=== PATIENT | female | born 1990 | race Caucasian/White ===

== ENCOUNTER 2020-09-23 05:17 | Inpatient (IN) | payer OTHER, SELFPAY ==
[2020-09-23] VITALS (8 sets, daily range): BP systolic 118–136; BP diastolic 77–89; PULSE 68–105; RESP 16–22; TEMP 36.2–37.2; O2SAT 97–100; BMI 27.4
[2020-09-23] MEDS: LORazepam 1 MG TABLET 2 MG PO (05:40)
[2020-09-23] MEDS: ondansetron HCL 4 MG/2 ML VIAL IVPUSH ×3 (05:48→15:06)
[2020-09-23] MEDS: 0.9 % Sodium Chloride 1,000 ML 1000 ML IV (05:48)
[2020-09-23 05:55] LABS: MANUAL DIFF FLAG NO
[2020-09-23 05:57] LABS: Basophils Percent Auto 0.5 % (0-2); Hematocrit 39.2 % (37-47); Imm Gran Abs Auto 0.02 X10*3/uL (0.00-0.03); Imm Gran Pct Auto 0.3 % (0.0-0.4); Lymphocytes Absolute Auto 1.8 X10*3/uL (1.2-4.9); Lymphocytes Percent Auto 22.8 % (20-40); Mean Corpuscular HGB Conc 33.2 g/dl (31.0-35.0); Mean Corpuscular Hemoglobin 26.5 pg (27.0-33.0); Mean Platelet Volume 10.2 fL (9.4-12.3); Monocytes Absolute Auto 0.5 X10*3/uL (0.1-1.2); Monocytes Percent Auto 6.2 % (2-11); Neutrophils Absolute Auto 5.5 X10*3/uL (2.0-8.3); Neutrophils Percent Auto 70.2 % (45-73); Platelet Count 248 X10*3/uL (160-400); Red Cell Distribution Width 15.3 % (11.0-16.0); White Blood Count 7.8 X10*3/uL (4.8-10.8)
--- NOTE | 2020-09-23 06:05 | ECG_ITS ---
Test Reason : ETOH WITHDRAWAL Blood Pressure : / mmHG Vent. Rate : 090 BPM Atrial Rate : 090 BPM P-R Int : 138 ms QRS Dur : 080 ms QT Int : 406 ms P-R-T Axes : 072 -20 029 degrees QTc Int : 496 ms Normal sinus rhythm with sinus arrhythmia Left axis deviation Borderline ECG When compared with ECG of 04-MAY-2020 11:47, No significant change was found Referred By: Saskia Chacon Electronically Signed By:RAMESH COLINDRES MD
--- NOTE | 2020-09-23 06:06 | ED_ITS ---
HPI - Alcohol General Chief Complaint: Nausea/Vomiting/Diarrhea Stated Complaint: VOMITING Time Seen by Provider: 09/23/20 05:36 Source: patient Limitations: no limitations History of Present Illness HPI narrative: This is a 29-year-old female who states that she fell off the wagon and began drinking again over the weekend her last drink was 8 beers yesterday morning she did attempt to call [facility] but they do not have beds currently and she has been able to abstain but did drink 1 alcoholic beverage this morning in an attempt to calm her symptoms . She is currently experiencing multiple episodes of nausea and vomiting with epigastric pain that is diffusely extending into the rest of her abdomen but denies fever, chills, shortness of breath. Related Data Allergies Allergy/AdvReac Type Severity Reaction Status Date / Time No Known Allergies Allergy Unverified 08/06/20 16:03 [No Known Allergies*] Review of Systems Review of Systems: pertinent positives and negatives as stated in the HPI 10 point review systems is otherwise negative. PMFSH Past Medical History Source: nursing notes reviewed Medical History Alcohol withdrawal seizure Alcoholism Social History Social History Alcohol intake: current Alcohol intake frequency: 3 or more drinks per day Smoking Status: Unknown if ever smoked Use of substances other than those prescribed or required for medical reasons: Unable to respond Advance Directives: No Advance Directives Information Provided: No Physical Exam Vital Signs: Vital Signs: Vital Signs Temp Pulse Resp BP Pulse Ox 09/23/20 07:43 98 F 105 H 18 121/81 97 09/23/20 05:32 98.9 F 101 H 22 H 136/89 98 Body Mass Index 27.4 VITAL SIGNS: Reviewed. GENERAL: Well developed, well nourished, Moderate distress. HEAD: Normocephalic/atraumatic, EYES: PERRLA, EOMI intact without pain, no nystagmus/pallor/icterus noted EARS: Ext canals without abnormality, TMs non-bulging and non-erythematous NOSE: Nares patent bilateral OROPHARYNX: no oral lesions noted, posterior pharynx clear and non-erythematous without noted tonsillar enlargement/erythema/exudates NECK: Supple, no adenopathy LUNGS: Normal breath sounds. No adventitious sounds or accessory muscle use. SpO 2<98> CARDIOVASCULAR: Regular rate and rhythm without noted murmurs, no JVD or lower extremity edema. ABDOMEN: Soft, tender in the epigastrium without rebound, non-distended with bowel sounds. No rigidity. No guarding. No palpable masses or hernias noted MUSCULOSKELETAL: No tenderness, deformities, or effusions noted on gross inspection. EXTREMITIES: No cyanosis, clubbing or edema. SKIN: Inspection of the skin reveals no rashes, ulcerations, jaundice, pallor, or petechiae. NEUROLOGIC: Alert and oriented x 4. Strength and sensation to light touch were grossly intact x 4. CIWA-28 Course Course Course Narrative: This is a 29-year-old female with history and clinical presentation consistent with alcohol withdrawal, CIWA -28, initially antiemetics, fluids and 2 mg of Ativan were provided with minimal improvement and on CIWA calculation the decision was made to place patient on a phenobarb protocol, obtain lab work, control nausea and vomiting, and admit. On review of all investigations there are no acute findings and patient has had good response to the phenobarb protocol and states feeling much better with symptomatic improvement of epigastric pain. COVID-19 testing sent off. Case was discussed with inpatient hospitalist team who is agreeable for admission. MDM - Alcohol Lab Data Result diagrams: 09/23/20 05:49 09/23/20 06:31 Labs: Lab Results 09/23/20 09/23/20 09/23/20 Range/Units 05:49 05:49 06:31 WBC 7.8 (4.8-10.8) X10*3/uL RBC 4.90 (4.20-5.50) X10*6/uL Hgb 13.0 (12.0-16.0) g/dl Hct 39.2 (37-47) % MCV 80.0 (80-98) fL MCH 26.5 L (27.0-33.0) pg MCHC 33.2 (31.0-35.0) g/dl RDW 15.3 (11.0-16.0) % Plt Count 248 (160-400) X10*3/uL MPV 10.2 (9.4-12.3) fL Immature Gran % (Auto) 0.3 (0.0-0.4) % Neut % (Auto) 70.2 (45-73) % Lymph % (Auto) 22.8 (20-40) % [place] % (Auto) 6.2 (2-11) % Eos % (Auto) 0.0 (0-4) % Baso % (Auto) 0.5 (0-2) % Lymph # (Auto) 1.8 (1.2-4.9) X10*3/uL [place] # (Auto) 0.5 (0.1-1.2) X10*3/uL Eos # (Auto) 0.0 (0.0-0.4) X10*3/uL Baso # (Auto) 0.0 (0.0-0.2) X10*3/uL Abs Immat Gran (auto) 0.02 (0.00-0.03) X10*3/uL Absolute Neuts (auto) 5.5 (2.0-8.3) X10*3/uL Absolute Nucleated RBC 0.000 (0.0-0.012) X10*3/uL Nucleated RBC % (auto) 0.0 (0.0-0.2) /100WBC PT 12.9 (10.8-13.0) SEC INR 1.1 (0.9-1.1) Sodium (135-145) mmol/L Potassium (3.3-5.1) mmol/l Chloride (96-108) mmol/L Carbon Dioxide (22-29) mmol/L Anion Gap (12-20) BUN (9-16) mg/dL Creatinine (0.5-1.4) mg/dL Estim Creat Clear Calc Estimated GFR Random Glucose (60-115) mg/dL Calcium (8.4-10.2) mg/dL Magnesium Cancelled Total Bilirubin (0.0-1.0) mg/dL AST (5-31) U/L ALT (0-31) U/L Alkaline Phosphatase (39-117) U/L Total Protein (6.5-8.0) g/dL Albumin (3.5-5.0) g/dL Lipase Cancelled 09/23/20 Range/Units 06:31 WBC (4.8-10.8) X10*3/uL RBC (4.20-5.50) X10*6/uL Hgb (12.0-16.0) g/dl Hct (37-47) % MCV (80-98) fL MCH (27.0-33.0) pg MCHC (31.0-35.0) g/dl RDW (11.0-16.0) % Plt Count (160-400) X10*3/uL MPV (9.4-12.3) fL Immature Gran % (Auto) (0.0-0.4) % Neut % (Auto) (45-73) % Lymph % (Auto) (20-40) % [place] % (Auto) (2-11) % Eos % (Auto) (0-4) % Baso % (Auto) (0-2) % Lymph # (Auto) (1.2-4.9) X10*3/uL [place] # (Auto) (0.1-1.2) X10*3/uL Eos # (Auto) (0.0-0.4) X10*3/uL Baso # (Auto) (0.0-0.2) X10*3/uL Abs Immat Gran (auto) (0.00-0.03) X10*3/uL Absolute Neuts (auto) (2.0-8.3) X10*3/uL Absolute Nucleated RBC (0.0-0.012) X10*3/uL Nucleated RBC % (auto) (0.0-0.2) /100WBC PT (10.8-13.0) SEC INR (0.9-1.1) Sodium 134 L (135-145) mmol/L Potassium 3.7 (3.3-5.1) mmol/l Chloride 100 (96-108) mmol/L Carbon Dioxide 22 (22-29) mmol/L Anion Gap 16 (12-20) BUN 5 L (9-16) mg/dL Creatinine 0.61 (0.5-1.4) mg/dL Estim Creat Clear Calc 132.9 Estimated GFR > 60 Random Glucose 80 (60-115) mg/dL Calcium 7.6 L (8.4-10.2) mg/dL Magnesium 1.6 Total Bilirubin 0.9 (0.0-1.0) mg/dL AST 33 H (5-31) U/L ALT 15 (0-31) U/L Alkaline Phosphatase 64 (39-117) U/L Total Protein 7.1 (6.5-8.0) g/dL Albumin 3.8 (3.5-5.0) g/dL Lipase 25 ECG Data Attestation: I personally reviewed and interpreted this ECG as follows: Prior ECG tracings: available for review ( 05/04/2020 no acute changes on comparison) Interpretation: normal sinus rhythm, HR-90, no evidence of acute ischemia, PA/QRS are within normal limits and QTC is mildly prolonged at 496. Discharge Plan Discharge Clinical Impression: Alcohol withdrawal Patient Disposition: Admitted As Inpatient
--- NOTE | 2020-09-23 06:24 | PC.NURSE ---
PT REPORTS SHE STOPPED DRINKING ALCOHOL FOR A FEW MONTHS, UNTIL THIS PAST WEEKEND. PT HAS A DRINKING BINGE X 4 DAYS, BEER. LAST DRINK WAS 12 HOURS AGO.
[2020-09-23 06:49] LABS: INTERNATIONAL NORM RATIO 1.1 (0.9-1.1); Prothrombin Time 12.9 SEC (10.8-13.0)
[2020-09-23 07:14] LABS: Alanine Aminotransferase 15 U/L (0-31); Albumin Level 3.8 g/dL (3.5-5.0); Alkaline Phosphatase 64 U/L (39-117); Anion Gap 16 (12-20); Aspartate Amino Transferase 33 U/L (5-31); Bilirubin Total 0.9 mg/dL (0.0-1.0); Blood Urea Nitrogen 5 mg/dL (9-16); Calcium 7.6 mg/dL (8.4-10.2); Carbon Dioxide 22 mmol/L (22-29); Chloride 100 mmol/L (96-108); Creatinine Clr Calc Pharmacy 132.9; Estimated Glomerular Filt Rate > 60; Glucose Random 80 mg/dL (60-115); Lipase 25 U/L (8-78); Magnesium 1.6 mg/dL (1.6-2.6); Potassium 3.7 mmol/l (3.3-5.1); Sodium 134 mmol/L (135-145); Total Protein 7.1 g/dL (6.5-8.0)
[2020-09-23] MEDS: PHENobarbitaL sodium 130 MG/ML VIAL 219 MG IM (07:42)
--- NOTE | 2020-09-23 07:48 | PC.NURSE ---
pt resting quietly medicated for etoh withdraw st on the monitor
--- NOTE | 2020-09-23 08:39 | PC.NURSE ---
REMAINS SLEEPING SHE IS MILDLY TACHY ON THE MONITOR BETWEEN 90-110BPM HER SKIN IS PWD NO VOMITING BANANA BAG INFUSING AT 42ML/HR ORDERED
--- NOTE | 2020-09-23 09:42 | P.HPIM_ITS ---
History of Present Illness Date of Service: 09/23/20 Chief Complaint: nausea and vomiting this is a 29-year-old female with history of alcohol abuse who presented to the emergency department with complaints of nausea and vomiting. She states this began last evening And her emesis has been nonbloody. This has been associated with epigastric abdominal pain. she denies any associated fever, chills, or diarrhea. She had been sober from alcohol for 1 month however last weekend she began drinking daily again. She reports drinking approximately 8 beers per day. She does not typically drink hard alcohol but she may have over the weekend. She also may have use marijuana. in the emergency department she was given fluid and Ativan. Her lab work was essentially unremarkable. there was concern she continued to withdraw from alcohol so she was started on phenobarbital hospitalists were asked to admit her for further management of alcohol withdrawal. Review of Systems Review of Systems: Cardiovascular- no chest pain no palpitations pulmonary- no shortness of breath, no cough - GI- epigastric abdominal pain, nausea, vomiting, no diarrhea all other systems have been reviewed and are negative [facility] Medical History (Updated 09/23/20 @ 09:48 by NANY Lindsay) Alcohol withdrawal seizure Alcoholism Anxiety Depression Functional capacity: independent ambulation Family History (Updated 09/23/20 @ 09:49 by NANY Lindsay) Brother Substance abuse Social History (Updated 09/23/20 @ 09:54 by NANY Lindsay) Alcohol intake: current Alcohol intake frequency: 3 or more drinks per day Alcohol type: beer Smoking Status: Never smoker Use of substances other than those prescribed or required for medical reasons: Unable to respond Substance Use Type: Marijuana Advance Directives: No Advance Directives Information Provided: No Meds Allergies Allergy/AdvReac Type Severity Reaction Status Date / Time No Known Allergies Allergy Unverified 08/06/20 16:03 [No Known Allergies*] Physical Exam Vital Signs and Narrative: Vital Signs: Last Vital Signs Temp 98 F 09/23/20 07:43 Pulse 101 H 09/23/20 08:57 Resp 18 09/23/20 08:57 BP 118/77 09/23/20 08:57 Pulse Ox 97 09/23/20 08:57 Body Mass Index 27.4 Const: Nutritional Appearance: well nourished Orientation/consciousness: patient oriented x3 HENMT: Head: Yes normocephalic and Yes atraumatic Eyes: Sclerae: sclerae normal Chest: Chest palpation & inspection: normal inspection of the chest Resp: Effort & Inspection: normal respiratory effort and no respiratory distress Auscultation: clear to auscultation bilaterally Cardio: Rate: regular rate Rhythm: regular rhythm GI: Palpation (GI): Soft to palpation and nontender Skin: General skin exam: no rashes or lesions noted Neuro: General: patient oriented x3 Cranial nerves: Yes CN's II-XII intact bilaterally and Yes Bilaterally intact EOM present Extrem: General: Yes normal to inspection Results Labs Labs: Laboratory Tests 09/23/20 09/23/20 09/23/20 05:49 05:49 06:31 WBC 7.8 RBC 4.90 Hgb 13.0 Hct 39.2 MCV 80.0 MCH 26.5 L MCHC 33.2 RDW 15.3 Plt Count 248 MPV 10.2 Immature Gran % (Auto) 0.3 Neut % (Auto) 70.2 Lymph % (Auto) 22.8 [place] % (Auto) 6.2 Eos % (Auto) 0.0 Baso % (Auto) 0.5 Lymph # (Auto) 1.8 [place] # (Auto) 0.5 Eos # (Auto) 0.0 Baso # (Auto) 0.0 Abs Immat Gran (auto) 0.02 Absolute Neuts (auto) 5.5 Absolute Nucleated RBC 0.000 Nucleated RBC % (auto) 0.0 PT 12.9 INR 1.1 Sodium Potassium Chloride Carbon Dioxide Anion Gap BUN Creatinine Estim Creat Clear Calc Estimated GFR Random Glucose Calcium Magnesium Cancelled Total Bilirubin AST ALT Alkaline Phosphatase Total Protein Albumin Lipase Cancelled 09/23/20 06:31 WBC RBC Hgb Hct MCV MCH MCHC RDW Plt Count MPV Immature Gran % (Auto) Neut % (Auto) Lymph % (Auto) [place] % (Auto) Eos % (Auto) Baso % (Auto) Lymph # (Auto) [place] # (Auto) Eos # (Auto) Baso # (Auto) Abs Immat Gran (auto) Absolute Neuts (auto) Absolute Nucleated RBC Nucleated RBC % (auto) PT INR Sodium 134 L Potassium 3.7 Chloride 100 Carbon Dioxide 22 Anion Gap 16 BUN 5 L Creatinine 0.61 Estim Creat Clear Calc 132.9 Estimated GFR > 60 Random Glucose 80 Calcium 7.6 L Magnesium 1.6 Total Bilirubin 0.9 AST 33 H ALT 15 Alkaline Phosphatase 64 Total Protein 7.1 Albumin 3.8 Lipase 25 Assessment and Plan (1) Alcohol withdrawal: Qualifiers: Complication of substance-induced condition: with unspecified complication Qualified Code(s): F10.239 - Alcohol dependence with withdrawal, unspecified Status: Acute this is a 29-year-old female with a history of anxiety, depression, alcohol abuse who presented to the emergency department with nausea and vomiting found to be in alcohol withdrawal alcohol withdrawal -phenobarbital initiated in ED - IV fluid, thiamin, folate supplementation - care team evaluation nausea and vomiting likely related to gastritis symptomatic treatment DVT prophylaxis- mechanical devices code status- full code this case was discussed with Dr. Jaramillo
--- NOTE | 2020-09-23 10:06 | PC.NURSE ---
CALLED FLOOR FOR ADMISSION, NURSE UNAVAILABLE FOR REPORT
[2020-09-23 10:15] LABS: SARS COV2 PCR INHOUSE NEGATIVE (Negative)
--- NOTE | 2020-09-23 11:11 | PM.EVENT ---
Event Note Event Note: 29-year-old female presented with nausea vomiting and epigastric pain, patient was drinking for last few days, admitted for possible alcohol withdrawal patient seen and examined at bedside on exam alert abdomen soft CVS rate and rhythm regular lungs clear admitted for alcohol withdrawal continue phenobarbital and CIWA protocol continue IV fluids monitor electrolytes high, continue thiamine and folic acid Patient seen and examined with the midlevel agree with H&P assessment and plan
[2020-09-23] MEDS: PHENobarbitaL sodium 130 MG/ML VIAL 164 MG IM ×2 (11:31→13:53)
--- NOTE | 2020-09-23 11:42 | PC.NURSE ---
report was given pt unable to be transferred as her room is changing
[2020-09-23] MEDS: Famotidine/PF 20 MG/2 ML VIAL IVPUSH (13:26)
[2020-09-23] MEDS: 0.9 % Sodium Chloride 1,000 ML 100 ML IVCONT ×2 (13:26→22:15)
--- NOTE | 2020-09-23 18:04 | MHC.CARE ---
CARE team spoke with [facility] staff regarding this patient in [facility] 484-1 who is being treated for alcohol withdrawal. Patient is sleeping at this time. Had been nauseous and vomiting earlier in the day. CARE team made plan with nurse to check in on patient tomorrow, however if patient is awake later in the evening and wants to speak to someone on this shift, [facility] staff will alert CARE team.
[2020-09-23] MEDS: 0.9 % Sodium Chloride Flush 3 ML SYRINGE IVFLUSH (20:36)
[2020-09-23] MEDS: PHENobarbitaL 15 MG TABLET 45 MG PO (20:36)
[2020-09-24 03:53] VITALS: BP 121/84; PULSE 74; RESP 18; TEMP 36.7; O2SAT 98
[2020-09-24 06:20] LABS: Hematocrit 36.5 % (37-47); Hemoglobin 11.6 g/dl (12.0-16.0); Mean Corpuscular HGB Conc 31.8 g/dl (31.0-35.0); Mean Corpuscular Hemoglobin 26.2 pg (27.0-33.0); Mean Corpuscular Volume 82.6 fL (80-98); Mean Platelet Volume 10.2 fL (9.4-12.3); Platelet Count 156 X10*3/uL (160-400); Red Blood Count 4.42 X10*6/uL (4.20-5.50); Red Cell Distribution Width 14.9 % (11.0-16.0); White Blood Count 6.4 X10*3/uL (4.8-10.8)
[2020-09-24 06:46] LABS: Anion Gap 14 (12-20); Blood Urea Nitrogen 6 mg/dL (9-16); Calcium 7.4 mg/dL (8.4-10.2); Carbon Dioxide 21 mmol/L (22-29); Chloride 103 mmol/L (96-108); Creatinine Clr Calc Pharmacy 147.3; Estimated Glomerular Filt Rate > 60; Glucose Random 69 mg/dL (60-115); Magnesium 1.8 mg/dL (1.6-2.6); Potassium 3.5 mmol/l (3.3-5.1); Sodium 134 mmol/L (135-145)
[2020-09-24] MEDS: Famotidine/PF 20 MG/2 ML VIAL IVPUSH ×2 (07:50→17:03)
[2020-09-24] MEDS: 0.9 % Sodium Chloride Flush 3 ML SYRINGE IVFLUSH ×3 (07:52→22:45)
[2020-09-24] MEDS: Folic Acid 1 MG TABLET PO (07:53)
[2020-09-24] MEDS: 0.9 % Sodium Chloride 1,000 ML 100 ML IVCONT (07:53)
[2020-09-24] MEDS: Thiamine HCL 100 MG TABLET PO (07:54)
[2020-09-24] MEDS: PHENobarbitaL 15 MG TABLET 45 MG PO ×2 (07:54→20:07)
[2020-09-24] MEDS: ondansetron HCL 4 MG/2 ML VIAL IVPUSH (07:59)
[2020-09-24 08:00] VITALS: BP 128/85; PULSE 86; RESP 18; TEMP 36.6; O2SAT 100
--- NOTE | 2020-09-24 09:33 | MHC.CM.PN ---
FEMALE 29 DX ETOH WITHDRAWAL. She lives with Mother. She is independent all functional mobility. DP home no services Family transport.
[2020-09-24 12:00] VITALS: BP 126/82; PULSE 87; RESP 18; TEMP 36.6; O2SAT 99
--- NOTE | 2020-09-24 12:36 | MHC.CARE ---
Addiction Consult Service note: Patient is a 29 year old Congolese speaking female who presented to [facility] ED and was admitted for alcohol withdrawal. Patient initially declined to meet with this abstract writer, stating that her stomach was bothering her. This abstract writer informed patient's RN with a plan to return later. Upon return, patient was more agreeable to meet with this abstract writer, however she is not interested in discussing her substance use. Patient reports that the relapse lasted 4 days and that she knows what she has to do to get back into recovery and maintain sobriety. Patient reports her Mother is very supportive and that her Mother will assist her in her recovery. Patient reports that she does not find groups helpful however she is already connected with a therapist and that she finds that support helpful. This abstract writer informed patient's RN of the content of this discussion.
[2020-09-24 15:29] VITALS: BP 126/86; PULSE 92; RESP 18; TEMP 36.9; O2SAT 99
--- NOTE | 2020-09-24 15:34 | P.PNIM_ITS ---
Subjective Subjective Date of Service: 09/24/20 Interval History: patient seen and examined at bedside patient reporting abdominal discomfort and nausea Constitutional Constitutional: Denies fever(s) Cardiovascular Cardiovascular: Denies dyspnea Respiratory Respiratory: Denies dyspnea Gastrointestinal Gastrointestinal: Reports abdominal pain and Reports nausea Physical Exam Vital Signs: Vital Signs: Last Vital Signs Temp 98.5 F 09/24/20 15:29 Pulse 92 09/24/20 15:29 Resp 18 09/24/20 15:29 BP 126/86 09/24/20 15:29 Pulse Ox 99 09/24/20 15:29 Body Mass Index 27.4 Const: Nutritional Appearance: well nourished Orientation/consciousness: patient oriented x3 HENMT: Head: Yes normocephalic and Yes atraumatic Eyes: Sclerae: sclerae normal Chest: Chest palpation & inspection: normal inspection of the chest Resp: Effort & Inspection: normal respiratory effort and no respiratory distress Auscultation: clear to auscultation bilaterally Cardio: Rate: regular rate Rhythm: regular rhythm GI: Palpation (GI): Soft to palpation and nontender Skin: General skin exam: no rashes or lesions noted Neuro: General: patient oriented x3 Cranial nerves: Yes CN's II-XII intact bilaterally and Yes Bilaterally intact EOM present Extrem: General: Yes normal to inspection Objective Data Current Medications Generic Name Dose Route Start Last Admin Trade Name Freq PRN Reason Stop Dose Admin Acetaminophen 650 mg 09/23/20 11:00 Acetaminophen 325 Mg Tablet PO Q6H PRN Pain, Mild (Pain Scale 1-3) Docusate Sodium 100 mg 09/23/20 11:00 Docusate Sodium 100 Mg Capsule PO DAILY PRN Constipation Famotidine 20 mg 09/24/20 17:30 Famotidine/Pf 20 Mg/2 Ml Vial IVPUSH BIDPC EDEN Folic Acid 1 mg 09/24/20 09:00 09/24/20 07:53 Folic Acid 1 Mg Tablet PO 1 mg DAILY EDEN Administration Folic Acid 1 mg/ Thiamine HCl 1,011.2 mls @ 42 mls/hr 09/24/20 06:45 09/24/20 07:48 100 mg/ Multivitamins 10 ml/ IVCONT 42 mls/hr Sodium Chloride .Q24H EDEN Administration Medication 1 each 09/23/20 09:00 No Benzodiazepines MISCELLANE DAILY EDEN Ondansetron HCl 4 mg 09/23/20 11:00 09/24/20 07:59 Ondansetron Hcl 4 Mg/2 Ml Vial IVPUSH 4 mg Q8H PRN Administration Nausea and Vomiting Pharmacy Consult 1 each 09/23/20 05:57 Consult Rx Etoh Phenob Dosing MISCELLANE ONCE PRN Consult order Phenobarbital 45 mg 09/23/20 21:00 09/24/20 07:54 Phenobarbital 15 Mg Tablet PO 09/25/20 09:01 45 mg BID EDEN Administration Protocol Phenobarbital 15 mg 09/25/20 21:00 Phenobarbital 15 Mg Tablet PO 09/27/20 09:01 BID EDEN Protocol Phenobarbital 15 mg 09/28/20 09:00 Phenobarbital 15 Mg Tablet PO 09/29/20 09:01 DAILY [facility] Protocol Sodium Chloride 3 ml 09/23/20 16:00 09/24/20 07:52 0.9 % Sodium Chloride Flush 3 Ml Syringe IVFLUSH 3 ml QSHIFT [facility] Administration Thiamine HCl 100 mg 09/24/20 09:00 09/24/20 07:54 Thiamine Hcl 100 Mg Tablet PO 100 mg DAILY EDEN Administration Labs CBC & Chem 7: 09/24/20 05:42 09/24/20 05:42 Labs: Laboratory Results - last 24 hr 09/24/20 09/24/20 05:42 05:42 WBC 6.4 RBC 4.42 Hgb 11.6 L Hct 36.5 L MCV 82.6 MCH 26.2 L MCHC 31.8 RDW 14.9 Plt Count 156 L D MPV 10.2 Absolute Nucleated RBC 0.000 Nucleated RBC % (auto) 0.0 Sodium 134 L Potassium 3.5 Chloride 103 Carbon Dioxide 21 L Anion Gap 14 BUN 6 L Creatinine 0.55 Estim Creat Clear Calc 147.3 Estimated GFR > 60 Random Glucose 69 Calcium 7.4 L Magnesium 1.8 Assessment and Plan (1) Alcohol withdrawal: Status: Acute Assessment and Plan: this is a 29-year-old female with a history of anxiety, depression, alcohol abuse who presented to the emergency department with nausea and vomiting found to be in alcohol withdrawal alcohol withdrawal still nauseous continue phenobarbital and CIWA protocol continue IV fluid, thiamin, folate supplementation monitor electrolytes care team evaluation nausea and vomiting likely related to gastritis symptomatic treatment continue famotidine DVT prophylaxis- mechanical devices
[2020-09-24 19:38] VITALS: BP 133/77; PULSE 80; RESP 18; TEMP 36.7; O2SAT 100
[2020-09-24] MEDS: diphenhydrAMINE HCL 50 MG/ML VIAL 25 MG IVPUSH (22:44)
[2020-09-24 23:04] VITALS: BP 104/66; PULSE 113; RESP 20; TEMP 36.9; O2SAT 98
[2020-09-25 03:40] VITALS: BP 144/88; PULSE 95; RESP 18; TEMP 37.2; O2SAT 99
[2020-09-25 07:06] VITALS: BP 100/65; PULSE 80; RESP 18; TEMP 36.9; O2SAT 98
[2020-09-25] MEDS: Folic Acid 1 MG TABLET PO (08:13)
[2020-09-25] MEDS: 0.9 % Sodium Chloride Flush 3 ML SYRINGE IVFLUSH (08:13)
[2020-09-25] MEDS: Thiamine HCL 100 MG TABLET PO (08:13)
[2020-09-25] MEDS: Famotidine/PF 20 MG/2 ML VIAL IVPUSH (08:13)
[2020-09-25] MEDS: PHENobarbitaL 15 MG TABLET 45 MG PO (08:13)
[2020-09-25 09:36] LABS: Anion Gap 14 (12-20); Blood Urea Nitrogen 7 mg/dL (9-16); Calcium 7.9 mg/dL (8.4-10.2); Carbon Dioxide 21 mmol/L (22-29); Chloride 104 mmol/L (96-108); Creatinine Clr Calc Pharmacy 128.6; Estimated Glomerular Filt Rate > 60; Glucose Random 97 mg/dL (60-115); Potassium 3.4 mmol/l (3.3-5.1); Sodium 136 mmol/L (135-145)
--- NOTE | 2020-09-25 10:24 | MHC.CM.PN ---
DC to home today. Patient has arranged for transportation.
--- NOTE | 2020-09-25 11:12 | P.DS_ITS ---
DS: Providers Provider Date of admission: 09/23/20 09:38 Primary care physician: Mike Franks MD Consults: 09/23/20 11:00 Consult to Care Team Routine Comment: Reason for consultation: etoh DS: Diagnosis Discharge Diagnosis (1) Alcohol withdrawal: Status: Acute DS: Summary Hospital Course Hospital Course: 29-year-old female admitted with alcohol withdrawal and alcoholic gastritis, patient was started on phenobarbital and CIWA protocol, electrolytes were replaced and monitored, patient also also started on famotidine for gastritis, withdrawal symptoms resolved, nausea vomiting resolved, patient was tolerating regular diet, patient refused care team, patient was consuled on alcohol abuse, patient was stable discharged home Time Spent with Patient Time attestation: Total time spent providing and/or coordinating discharge services: Physical Exam Vital Signs: Vital Signs: Last Vital Signs Temp 98.4 F 09/25/20 07:06 Pulse 80 09/25/20 07:06 Resp 18 09/25/20 07:06 BP 100/65 09/25/20 07:06 Pulse Ox 98 09/25/20 07:06 Body Mass Index 27.4 Const: Nutritional Appearance: well nourished Orientation/consciousness: patient oriented x3 HENMT: Head: Yes normocephalic and Yes atraumatic Eyes: Sclerae: sclerae normal Chest: Chest palpation & inspection: normal inspection of the chest Resp: Effort & Inspection: normal respiratory effort and no respiratory distress Auscultation: clear to auscultation bilaterally Cardio: Rate: regular rate Rhythm: regular rhythm GI: Palpation (GI): Soft to palpation and nontender Skin: General skin exam: no rashes or lesions noted Neuro: General: patient oriented x3 Cranial nerves: Yes CN's II-XII intact bilaterally and Yes Bilaterally intact EOM present Extrem: General: Yes normal to inspection DS: Data Data Completed and Pending Labs on day of discharge: 09/23/20 05:36 IV insert/maintain .Now LORazepam [Ativan] 2 mg PO ONCE ONE 09/23/20 05:37 0.9 % Sodium Chloride [Ns] 1,000 ml IV 1,000 mls/hr 09/23/20 05:38 ondansetron HCL [Zofran] 4 mg IVPUSH ONCE ONE 09/23/20 05:39 LORazepam [Ativan] 1 mg .ROUTE .STK-MED ONE 09/23/20 05:49 Complete Blood Count Auto Diff Stat 09/23/20 05:57 Seizure precautions NOW Consult Rx EtOH Phenob Dosing 1 each MISCELLANE ONCE PRN 09/23/20 06:00 0.9 % Sodium Chloride [Ns] 1,000 ml Folic Acid 1 mg Thiamine HCL 100 mg MVI, Adult [Infuvite Adult] 10 ml IVCONT 42 mls/hr ondansetron HCL [Zofran] 4 mg IVPUSH ONCE ONE 09/23/20 06:02 MVI, Adult [Infuvite Adult] 10 ml .ROUTE .STK-MED ONE Thiamine HCL 200 mg .ROUTE .STK-MED ONE 09/23/20 06:05 ECG 12 lead EKG Stat EKG Documentation DIRECTED 09/23/20 06:10 Add Laboratory Test Stat 09/23/20 06:14 Folic Acid 1 ml .ROUTE .STK-MED ONE 09/23/20 06:31 Comprehensive Met. Panel Stat Lipase Stat Magnesium Stat Prothrombin Time INR Stat 09/23/20 06:43 PHENobarbitaL sodium 219 mg IM NOW STA 09/23/20 09:00 SARS COV2 PCR INHOUSE Stat NO Benzodiazepines 1 each MISCELLANE DAILY 09/23/20 09:29 Transfer Order Routine 09/23/20 09:30 Code Status Routine 09/23/20 11:00 0.9 % Sodium Chloride [Ns] 1,000 ml IVCONT 100 mls/hr Acetaminophen [Tylenol] 650 mg PO Q6H PRN Docusate Sodium [Colace] 100 mg PO DAILY PRN Famotidine/PF [Pepcid/PF] 20 mg IVPUSH DAILY PHENobarbitaL sodium 164 mg IM 1100,1400 ondansetron HCL [Zofran] 4 mg IVPUSH Q8H PRN 09/23/20 11:00 Ambulate NEEDED Compression Therapy QSHIFT Cont. Telemetry w/Vital Sign limit Q4HR IV insert/maintain Q4HR Intake and Output QSHIFTE Pulse Oximetry Q4HR Vital Signs Q4HR 09/23/20 16:00 0.9 % Sodium Chloride Flush [NS Flush] 3 ml IVFLUSH QSHIFT 09/23/20 21:00 PHENobarbitaL 45 mg PO BID 09/23/20 23:44 diphenhydrAMINE HCL [Benadryl] 25 mg IVPUSH ONCE ONE 09/24/20 05:42 Basic Metabolic Panel DAILY@0600 Complete Blood Count no Diff DAILY@0600 Magnesium Routine 09/24/20 06:45 0.9 % Sodium Chloride [Ns] 1,000 ml Folic Acid 1 mg Thiamine HCL 100 mg MVI, Adult [Infuvite Adult] 10 ml IVCONT 42 mls/hr 09/24/20 09:00 Folic Acid 1 mg PO DAILY Thiamine HCL [Vitamin B-1] 100 mg PO DAILY 09/24/20 17:30 Famotidine/PF [Pepcid/PF] 20 mg IVPUSH BIDPC 09/24/20 22:32 diphenhydrAMINE HCL [Benadryl] 25 mg IVPUSH ONCE ONE 09/25/20 08:07 Thiamine HCL 200 mg .ROUTE .STK-MED ONE 09/25/20 08:46 Basic Metabolic Panel Routine 09/25/20 21:00 PHENobarbitaL 15 mg PO BID 09/28/20 09:00 PHENobarbitaL 15 mg PO DAILY Laboratory Last Values WBC 6.4 X10*3/uL (4.8-10.8) 09/24/20 05:42 RBC 4.42 X10*6/uL (4.20-5.50) 09/24/20 05:42 Hgb 11.6 g/dl (12.0-16.0) L 09/24/20 05:42 Hct 36.5 % (37-47) L 09/24/20 05:42 MCV 82.6 fL (80-98) 09/24/20 05:42 MCH 26.2 pg (27.0-33.0) L 09/24/20 05:42 MCHC 31.8 g/dl (31.0-35.0) 09/24/20 05:42 RDW 14.9 % (11.0-16.0) 09/24/20 05:42 Plt Count 156 X10*3/uL (160-400) L D 09/24/20 05:42 MPV 10.2 fL (9.4-12.3) 09/24/20 05:42 Immature Gran % (Auto) 0.3 % (0.0-0.4) 09/23/20 05:49 Neut % (Auto) 70.2 % (45-73) 09/23/20 05:49 Lymph % (Auto) 22.8 % (20-40) 09/23/20 05:49 [place] % (Auto) 6.2 % (2-11) 09/23/20 05:49 Eos % (Auto) 0.0 % (0-4) 09/23/20 05:49 Baso % (Auto) 0.5 % (0-2) 09/23/20 05:49 Lymph # (Auto) 1.8 X10*3/uL (1.2-4.9) 09/23/20 05:49 [place] # (Auto) 0.5 X10*3/uL (0.1-1.2) 09/23/20 05:49 Eos # (Auto) 0.0 X10*3/uL (0.0-0.4) 09/23/20 05:49 Baso # (Auto) 0.0 X10*3/uL (0.0-0.2) 09/23/20 05:49 Abs Immat Gran (auto) 0.02 X10*3/uL (0.00-0.03) 09/23/20 05:49 Absolute Neuts (auto) 5.5 X10*3/uL (2.0-8.3) 09/23/20 05:49 Absolute Nucleated RBC 0.000 X10*3/uL (0.0-0.012) 09/24/20 05:42 Nucleated RBC % (auto) 0.0 /100WBC (0.0-0.2) 09/24/20 05:42 PT 12.9 SEC (10.8-13.0) 09/23/20 06:31 INR 1.1 (0.9-1.1) 09/23/20 06:31 Sodium 136 mmol/L (135-145) 09/25/20 08:46 Potassium 3.4 mmol/l (3.3-5.1) 09/25/20 08:46 Chloride 104 mmol/L (96-108) 09/25/20 08:46 Carbon Dioxide 21 mmol/L (22-29) L 09/25/20 08:46 Anion Gap 14 (12-20) 09/25/20 08:46 BUN 7 mg/dL (9-16) L 09/25/20 08:46 Creatinine 0.63 mg/dL (0.5-1.4) 09/25/20 08:46 Estim Creat Clear Calc 128.6 09/25/20 08:46 Estimated GFR > 60 09/25/20 08:46 Random Glucose 97 mg/dL (60-115) D 09/25/20 08:46 Calcium 7.9 mg/dL (8.4-10.2) L D 09/25/20 08:46 Magnesium 1.8 mg/dL (1.6-2.6) 09/24/20 05:42 Total Bilirubin 0.9 mg/dL (0.0-1.0) 09/23/20 06:31 AST 33 U/L (5-31) H 09/23/20 06:31 ALT 15 U/L (0-31) 09/23/20 06:31 Alkaline Phosphatase 64 U/L (39-117) 09/23/20 06:31 Total Protein 7.1 g/dL (6.5-8.0) 09/23/20 06:31 Albumin 3.8 g/dL (3.5-5.0) 09/23/20 06:31 Lipase 25 U/L (8-78) 09/23/20 06:31 Coronavirus (PCR) NEGATIVE (Negative) 09/23/20 09:00 Discharge Plan Discharge Anticipated Discharge Date/Time: 09/25/20 09:44 Patient Disposition: Home, Self-Care Referrals: Mike Franks MD [Primary Care Provider] - Discharge Medications: New famotidine 10 mg tablet 10 mg PO BID Qty: 10 RF: 0 Discharge Orders: Discharge Order (Routine); Ordered 09/25/20 Ordered By: John Jaramillo Diet: advance to your usual diet Activity on Discharge: As tolerated Discharge Date/Time: 09/25/20 10:37 Visit Report Forms: Patient Portal Discharge page Care Plan Goals: treat alcohol abuse Health Concerns: alcohol abuse Plan of Treatment: counseled on alcohol abuse
== END 2020-09-25 10:37 | disposition home or self-care (01) | DRG 241 ==
LOC: HO.ED 09:03 → HO.IMC 10:06
PROVIDERS: Physician Assistant Medical; Admitting Provider Internal Medicine; Emergency Provider Student in an Organized Health Care Education/Training Program; PCP Internal Medicine; Visit Provider Student in an Organized Health Care Education/Training Program
DX: K29.20 Alcoholic gastritis without bleeding (principal); F10.239 Alcohol dependence with withdrawal, unspecified; F32.9 Major depressive disorder, single episode, unspecified; F41.9 Anxiety disorder, unspecified; Z20.828 Contact with and (suspected) exposure to other viral communicable diseases; Z79.899 Other long term (current) drug therapy
CPT/HCPCS: 36415; 80048; 80053; 83690; 83735; 85025; 85027; 85610; 93005; 96360; 96372; 99285; J1200; J2405; J2560; J3411; U0003

== ENCOUNTER 2020-10-31 20:15 | Emergency (ER) | payer OTHER, SELFPAY ==
[2020-10-31 20:21] VITALS: BP 131/97; BP 132/88; PULSE 105; RESP 16; TEMP 37.2; O2SAT 97; BMI 24.0
--- NOTE | 2020-10-31 20:24 | ED_ITS ---
HPI - Alcohol General Chief Complaint: ETOH/Substance Use Stated Complaint: ams, ?etoh Time Seen by Provider: 10/31/20 20:23 Source: patient Mode of arrival: EMS Limitations: other (Intoxicated) History of Present Illness HPI narrative: Patient brought by EMS for intoxication patient had lot of drinks at home been here in the past for similar situation patient denying any other complaints sleeping in the ER complaint: alcohol intoxication Last drink: Hours (ago) Chronic alcohol use: Yes Previous visits for alcohol intoxication: Yes Recent trauma: No Related Data Previous Rx's Medication Instructions Recorded famotidine 10 mg PO BID #10 tab 09/25/20 Allergies Allergy/AdvReac Type Severity Reaction Status Date / Time No Known Allergies Allergy Unverified 08/06/20 16:03 [No Known Allergies*] Review of Systems Review of Systems: Yes Unobtainable due to mental status PMFSH Past Medical History Medical History Alcohol withdrawal seizure Alcoholism Anxiety Depression Family History Family History Brother Substance abuse Social History Social History Household Members: Family Housing: House Alcohol intake: current Alcohol intake frequency: 3 or more drinks per day Alcohol type: beer Smoking Status: Never smoker Substance Use Type: Marijuana Advance Directives: No Advance Directives Information Provided: No service: No Current occupational status: unemployed Physical Exam Vital Signs: Vital Signs: Last Vital Signs Temp 98.9 F 10/31/20 20:21 Pulse 105 H 10/31/20 20:21 Resp 16 11/01/20 06:00 BP 132/88 10/31/20 20:21 Pulse Ox 97 10/31/20 20:21 Body Mass Index 24.0 Appearance: Sleeping , intoxicated, No acute distress. Eyes: Pupils equal, round and reactive to light. ENT: Pharynx normal. Neck: Normal inspection. Neck supple. CVS: Normal heart rate and rhythm. Pulses normal. Respiratory: No respiratory distress. Breath sounds normal. Abdomen: Soft and nontender. Skin: Skin warm and dry. Normal skin color. Normal skin turgor. Extremities: No lower extremity edema. Good range of movement Neuro: Intoxicated, No motor deficit. No sensory deficit. MDM - Alcohol MDM Narrative Medical decision making narrative: Patient intoxicated with stable labs alcohol level is 441 will keep her overnight and discharge in the morning advised to follow-up with detox Lab Data Attestation: I reviewed the patient's lab results. Result diagrams: 10/31/20 21:19 10/31/20 21:19 Labs: Lab Results 10/31/20 10/31/20 10/31/20 Range/Units 21:19 21:19 21:19 WBC 6.3 (4.8-10.8) X10*3/uL RBC 5.18 (4.20-5.50) X10*6/uL Hgb 13.5 (12.0-16.0) g/dl Hct 41.9 (37-47) % MCV 80.9 (80-98) fL MCH 26.1 L (27.0-33.0) pg MCHC 32.2 (31.0-35.0) g/dl RDW 15.9 (11.0-16.0) % Plt Count 314 D (160-400) X10*3/uL MPV 9.7 (9.4-12.3) fL Immature Gran % (Auto) 0.2 (0.0-0.4) % Neut % (Auto) 62.5 (45-73) % Lymph % (Auto) 30.4 (20-40) % [place] % (Auto) 5.4 (2-11) % Eos % (Auto) 0.5 (0-4) % Baso % (Auto) 1.0 (0-2) % Lymph # (Auto) 1.9 (1.2-4.9) X10*3/uL [place] # (Auto) 0.3 (0.1-1.2) X10*3/uL Eos # (Auto) 0.0 (0.0-0.4) X10*3/uL Baso # (Auto) 0.1 (0.0-0.2) X10*3/uL Abs Immat Gran (auto) 0.01 (0.00-0.03) X10*3/uL Absolute Neuts (auto) 3.9 (2.0-8.3) X10*3/uL Absolute Nucleated RBC 0.000 (0.0-0.012) X10*3/uL Nucleated RBC % (auto) 0.0 (0.0-0.2) /100WBC Sodium 145 (135-145) mmol/L Potassium 3.9 (3.3-5.1) mmol/l Chloride 109 H (96-108) mmol/L Carbon Dioxide 22 (22-29) mmol/L Anion Gap 18 (12-20) BUN 4 L (9-16) mg/dL Creatinine 0.73 (0.5-1.4) mg/dL Estim Creat Clear Calc 98.2 Estimated GFR > 60 Random Glucose 140 H D (60-115) mg/dL Calcium 8.4 D (8.4-10.2) mg/dL Magnesium 1.8 (1.6-2.6) mg/dL Total Bilirubin < 0.2 (0.0-1.0) mg/dL AST 28 (5-31) U/L ALT 16 (0-31) U/L Alkaline Phosphatase 63 (39-117) U/L Total Protein 7.7 (6.5-8.0) g/dL Albumin 4.3 (3.5-5.0) g/dL Lipase 32 (8-78) U/L Ethyl Alcohol 441 H* mg/dL Discharge Plan Discharge Clinical Impression: Alcoholic intoxication Qualifiers: Complication of substance-induced condition: uncomplicated Qualified Code(s): F10.920 - Alcohol use, unspecified with intoxication, uncomplicated Patient Disposition: Home, Self-Care Instructions: Alcohol Intoxication (ED) Additional Instructions: Stop drinking alcohol and follow up with detox Prescriptions: No Action famotidine 10 mg tablet 10 mg PO BID Qty: 10 RF: 0 Interventions: ED Discharge Assessment Last Done: 11/01/20 06:52 Discharge Date/Time: 11/01/20 06:53
[2020-10-31 21:26] LABS: Basophils Absolute Auto 0.1 X10*3/uL (0.0-0.2); Eosinophils Percent Auto 0.5 % (0-4); Hematocrit 41.9 % (37-47); Hemoglobin 13.5 g/dl (12.0-16.0); Imm Gran Abs Auto 0.01 X10*3/uL (0.00-0.03); Imm Gran Pct Auto 0.2 % (0.0-0.4); Lymphocytes Absolute Auto 1.9 X10*3/uL (1.2-4.9); Lymphocytes Percent Auto 30.4 % (20-40); MANUAL DIFF FLAG NO; Mean Corpuscular HGB Conc 32.2 g/dl (31.0-35.0); Mean Corpuscular Hemoglobin 26.1 pg (27.0-33.0); Mean Corpuscular Volume 80.9 fL (80-98); Mean Platelet Volume 9.7 fL (9.4-12.3); Monocytes Absolute Auto 0.3 X10*3/uL (0.1-1.2); Monocytes Percent Auto 5.4 % (2-11); Neutrophils Absolute Auto 3.9 X10*3/uL (2.0-8.3); Neutrophils Percent Auto 62.5 % (45-73); Platelet Count 314 X10*3/uL (160-400); Red Blood Count 5.18 X10*6/uL (4.20-5.50); Red Cell Distribution Width 15.9 % (11.0-16.0); White Blood Count 6.3 X10*3/uL (4.8-10.8)
[2020-10-31 21:50] LABS: Ethanol 441 mg/dL
[2020-10-31 22:15] LABS: Alanine Aminotransferase 16 U/L (0-31); Albumin Level 4.3 g/dL (3.5-5.0); Alkaline Phosphatase 63 U/L (39-117); Anion Gap 18 (12-20); Aspartate Amino Transferase 28 U/L (5-31); Bilirubin Total < 0.2 mg/dL (0.0-1.0); Blood Urea Nitrogen 4 mg/dL (9-16); Calcium 8.4 mg/dL (8.4-10.2); Carbon Dioxide 22 mmol/L (22-29); Chloride 109 mmol/L (96-108); Creatinine Clr Calc Pharmacy 98.2; Estimated Glomerular Filt Rate > 60; Glucose Random 140 mg/dL (60-115); Lipase 32 U/L (8-78); Magnesium 1.8 mg/dL (1.6-2.6); Potassium 3.9 mmol/l (3.3-5.1); Sodium 145 mmol/L (135-145); Total Protein 7.7 g/dL (6.5-8.0)
[2020-11-01] VITALS: RESP 16
[2020-11-01 02:00] VITALS: RESP 16
[2020-11-01 04:00] VITALS: RESP 16
[2020-11-01 06:00] VITALS: RESP 16
== END 2020-11-01 06:53 | disposition home or self-care (01) ==
PROVIDERS: Emergency Provider Internal Medicine
DX: F10.220 Alcohol dependence with intoxication, uncomplicated (principal); Y90.8 Blood alcohol level of 240 mg/100 ml or more
CPT/HCPCS: 36415; 80053; 80320; 83690; 83735; 85025; 99283; 99284

== ENCOUNTER 2020-11-05 21:08 | Emergency (ER) | payer OTHER, SELFPAY ==
[2020-11-05 21:17] VITALS: BP 135/90; PULSE 95; RESP 15; TEMP 37; O2SAT 95; BMI 25.0
--- NOTE | 2020-11-05 21:43 | ED.ALCOHOL ---
HPI - Alcohol General Chief Complaint: ETOH/Substance Use Stated Complaint: Alcohol Withdrawal Time Seen by Provider: 11/05/20 21:25 Source: old records reviewed and other (Boyfriend) History of Present Illness HPI narrative: This is a 29-year-old female who is been seen here multiple times and is now presenting being brought in by her boyfriend who states that she has had 3-4 beers and injected some heroin. Unable to obtain history from the patient at this time as she is unintelligible with slurring. On reinterview patient states that she wants detox because if she is discharged she will just go back to drinking again and she acknowledges that she has a problem and that she needs help. Otherwise, she denies any thoughts of wanting to kill herself but does feel a little bit depressed about her dependency. She has no other acute complaints. Related Data Previous Rx's Medication Instructions Recorded famotidine 10 mg PO BID #10 tab 09/25/20 Allergies Allergy/AdvReac Type Severity Reaction Status Date / Time No Known Allergies Allergy Unverified 08/06/20 16:03 [No Known Allergies*] Review of Systems Review of Systems: Pertinent positives and negatives as per HPI and 10 point review of systems otherwise negative. PMFSH Past Medical History Source: nursing notes reviewed Medical History Alcohol withdrawal seizure Alcoholism Anxiety Depression Family History Family History Brother Substance abuse Social History Social History Household Members: Family Housing: House Alcohol intake: current Alcohol intake frequency: 3 or more drinks per day Alcohol type: beer Smoking Status: Never smoker Substance Use Type: Marijuana Advance Directives: No Advance Directives Information Provided: Yes service: No Current occupational status: unemployed Physical Exam Vital Signs: Vital Signs: Last Vital Signs Temp 98.6 F 11/05/20 21:17 Pulse 97 11/06/20 06:00 Resp 16 11/06/20 06:00 BP 109/69 11/06/20 06:00 Pulse Ox 97 11/06/20 06:00 Body Mass Index 25.0 VITAL SIGNS: Reviewed. GENERAL: Well developed, well nourished, in no acute distress. HEAD: Normocephalic/atraumatic, EYES: PERRLA, EOMI intact without pain, no nystagmus/pallor/icterus noted EARS: Ext canals without abnormality, TMs non-bulging and non-erythematous NOSE: Nares patent bilateral OROPHARYNX: no oral lesions noted, posterior pharynx clear and non-erythematous without noted tonsillar enlargement/erythema/exudates NECK: Supple, no adenopathy LUNGS: Normal breath sounds. No adventitious sounds or accessory muscle use. SpO2<95> CARDIOVASCULAR: Regular rate and rhythm without noted murmurs, no JVD or lower extremity edema. ABDOMEN: Soft, non-tender, non-distended with bowel sounds. No rigidity. No guarding. No palpable masses or hernias noted MUSCULOSKELETAL: No tenderness, deformities, or effusions noted on gross inspection. EXTREMITIES: No cyanosis, clubbing or edema. SKIN: Inspection of the skin reveals no rashes, ulcerations, jaundice, pallor, or petechiae. NEUROLOGIC: Initially slurred speech and drowsy but on re-evaluation Alert and oriented x 4. Strength and sensation to light touch were grossly intact x 4. Course Course Course Narrative: Patient received intranasal Narcan, 4 mg IM Zofran, and placed on capnography on arrival. -labs, beta hCG, U tox, ethanol On re-evaluation patient is much more awake and speaking to her mother and ambulating with a steady gait. - CIWA, Librium, CARE team consult, COVID testing Signed out to Dr Hudson. MDM - Alcohol Lab Data Result diagrams: 11/05/20 21:52 11/05/20 21:52 Labs: Lab Results 11/05/20 11/05/20 11/05/20 Range/Units 21:47 21:52 21:52 WBC 7.9 (4.8-10.8) X10*3/uL RBC 5.55 H (4.20-5.50) X10*6/uL Hgb 14.2 (12.0-16.0) g/dl Hct 44.8 (37-47) % MCV 80.7 (80-98) fL MCH 25.6 L (27.0-33.0) pg MCHC 31.7 (31.0-35.0) g/dl RDW 15.8 (11.0-16.0) % Plt Count 338 (160-400) X10*3/uL MPV 9.6 (9.4-12.3) fL Immature Gran % (Auto) 0.1 (0.0-0.4) % Neut % (Auto) 54.5 (45-73) % Lymph % (Auto) 41.0 H (20-40) % [place] % (Auto) 3.7 (2-11) % Eos % (Auto) 0.1 (0-4) % Baso % (Auto) 0.6 (0-2) % Lymph # (Auto) 3.2 (1.2-4.9) X10*3/uL [place] # (Auto) 0.3 (0.1-1.2) X10*3/uL Eos # (Auto) 0.0 (0.0-0.4) X10*3/uL Baso # (Auto) 0.1 (0.0-0.2) X10*3/uL Abs Immat Gran (auto) 0.01 (0.00-0.03) X10*3/uL Absolute Neuts (auto) 4.3 (2.0-8.3) X10*3/uL Absolute Nucleated RBC 0.000 (0.0-0.012) X10*3/uL Nucleated RBC % (auto) 0.0 (0.0-0.2) /100WBC Sodium 141 (135-145) mmol/L Potassium 4.2 (3.3-5.1) mmol/l Chloride 101 (96-108) mmol/L Carbon Dioxide 30 H (22-29) mmol/L Anion Gap 14 (12-20) BUN 6 L (9-16) mg/dL Creatinine 0.74 (0.5-1.4) mg/dL Estim Creat Clear Calc 100.9 Estimated GFR > 60 POC Glucose 126 H (60-115) mg/dL Random Glucose 113 (60-115) mg/dL Calcium 8.4 (8.4-10.2) mg/dL Total Bilirubin 0.2 (0.0-1.0) mg/dL AST 26 (5-31) U/L ALT 13 (0-31) U/L Alkaline Phosphatase 77 D (39-117) U/L Total Protein 8.0 (6.5-8.0) g/dL Albumin 4.3 (3.5-5.0) g/dL Beta HCG, Quant < 2 mIU/mL Urine Opiates Screen (Not Detect) Ur Barbiturates Screen (Not Detect) Ur Phencyclidine Scrn (Not Detect) Ur Amphetamines Screen (Not Detect) U Benzodiazepines Scrn (Not Detect) Urine Cocaine Screen (Not Detect) U Marijuana (THC) Screen (Not Detect) Ethyl Alcohol mg/dL 11/05/20 11/05/20 Range/Units 21:52 22:06 WBC (4.8-10.8) X10*3/uL RBC (4.20-5.50) X10*6/uL Hgb (12.0-16.0) g/dl Hct (37-47) % MCV (80-98) fL MCH (27.0-33.0) pg MCHC (31.0-35.0) g/dl RDW (11.0-16.0) % Plt Count (160-400) X10*3/uL MPV (9.4-12.3) fL Immature Gran % (Auto) (0.0-0.4) % Neut % (Auto) (45-73) % Lymph % (Auto) (20-40) % [place] % (Auto) (2-11) % Eos % (Auto) (0-4) % Baso % (Auto) (0-2) % Lymph # (Auto) (1.2-4.9) X10*3/uL [place] # (Auto) (0.1-1.2) X10*3/uL Eos # (Auto) (0.0-0.4) X10*3/uL Baso # (Auto) (0.0-0.2) X10*3/uL Abs Immat Gran (auto) (0.00-0.03) X10*3/uL Absolute Neuts (auto) (2.0-8.3) X10*3/uL Absolute Nucleated RBC (0.0-0.012) X10*3/uL Nucleated RBC % (auto) (0.0-0.2) /100WBC Sodium (135-145) mmol/L Potassium (3.3-5.1) mmol/l Chloride (96-108) mmol/L Carbon Dioxide (22-29) mmol/L Anion Gap (12-20) BUN (9-16) mg/dL Creatinine (0.5-1.4) mg/dL Estim Creat Clear Calc Estimated GFR POC Glucose (60-115) mg/dL Random Glucose (60-115) mg/dL Calcium (8.4-10.2) mg/dL Total Bilirubin (0.0-1.0) mg/dL AST (5-31) U/L ALT (0-31) U/L Alkaline Phosphatase (39-117) U/L Total Protein (6.5-8.0) g/dL Albumin (3.5-5.0) g/dL Beta HCG, Quant mIU/mL Urine Opiates Screen Not Detected (Not Detect) Ur Barbiturates Screen Not Detected (Not Detect) Ur Phencyclidine Scrn Not Detected (Not Detect) Ur Amphetamines Screen Not Detected (Not Detect) U Benzodiazepines Scrn Not Detected (Not Detect) Urine Cocaine Screen Not Detected (Not Detect) U Marijuana (THC) Screen Not Detected (Not Detect) Ethyl Alcohol 486 H* mg/dL Discharge Plan Discharge Prescriptions: No Action famotidine 10 mg tablet 10 mg PO BID Qty: 10 RF: 0
[2020-11-05] MEDS: Naloxone HCl Nasal 4 MG SPRAY NOSTRILALT (21:47)
[2020-11-05] MEDS: ondansetron HCL 4 MG/2 ML VIAL IVPUSH (21:47)
[2020-11-05 21:51] LABS: Glucose, Whole Blood 126 mg/dL (60-115)
[2020-11-05] MEDS: 0.9 % Sodium Chloride 1,000 ML 999 ML IV (21:54)
[2020-11-05 21:55] VITALS: BP 128/89; PULSE 113; RESP 18; O2SAT 96
[2020-11-05 21:59] LABS: MANUAL DIFF FLAG NO
[2020-11-05 22:13] LABS: Basophils Absolute Auto 0.1 X10*3/uL (0.0-0.2); Basophils Percent Auto 0.6 % (0-2); Eosinophils Percent Auto 0.1 % (0-4); Hematocrit 44.8 % (37-47); Hemoglobin 14.2 g/dl (12.0-16.0); Imm Gran Abs Auto 0.01 X10*3/uL (0.00-0.03); Imm Gran Pct Auto 0.1 % (0.0-0.4); Lymphocytes Absolute Auto 3.2 X10*3/uL (1.2-4.9); Mean Corpuscular HGB Conc 31.7 g/dl (31.0-35.0); Mean Corpuscular Hemoglobin 25.6 pg (27.0-33.0); Mean Corpuscular Volume 80.7 fL (80-98); Mean Platelet Volume 9.6 fL (9.4-12.3); Monocytes Absolute Auto 0.3 X10*3/uL (0.1-1.2); Monocytes Percent Auto 3.7 % (2-11); Neutrophils Absolute Auto 4.3 X10*3/uL (2.0-8.3); Neutrophils Percent Auto 54.5 % (45-73); Platelet Count 338 X10*3/uL (160-400); Red Blood Count 5.55 X10*6/uL (4.20-5.50); Red Cell Distribution Width 15.8 % (11.0-16.0); White Blood Count 7.9 X10*3/uL (4.8-10.8)
[2020-11-05 22:17] LABS: Ethanol 486 mg/dL
[2020-11-05 22:21] LABS: Alanine Aminotransferase 13 U/L (0-31); Albumin Level 4.3 g/dL (3.5-5.0); Alkaline Phosphatase 77 U/L (39-117); Anion Gap 14 (12-20); Aspartate Amino Transferase 26 U/L (5-31); Bilirubin Total 0.2 mg/dL (0.0-1.0); Blood Urea Nitrogen 6 mg/dL (9-16); Calcium 8.4 mg/dL (8.4-10.2); Carbon Dioxide 30 mmol/L (22-29); Chloride 101 mmol/L (96-108); Creatinine Clr Calc Pharmacy 100.9; Estimated Glomerular Filt Rate > 60; Glucose Random 113 mg/dL (60-115); Potassium 4.2 mmol/l (3.3-5.1); Sodium 141 mmol/L (135-145)
[2020-11-05 22:27] LABS: HCG Quantitative < 2 mIU/mL
--- NOTE | 2020-11-05 22:29 | PC.NURSE ---
PT BROUGHT INTO PT ROOM IN WHEELCHAIR, PT SLUMPED OVER, UNABLE TO ASSIST IN MOVING SELF TO BED, MOVED BY STAFF PRESENT, PT CHANGED INTO HOSPITAL ATTIRE WITH SECURITY AND PROVIDER PRESENT. PER TRIAGE PT CONSUMED ETOH AND HEROIN, PERRLA. PT MEDICATED W/ IN NARCAN PER EMAR W/OUT EFFECT. PT ST ON TELE, VSS. IV ESTABLIHSED, LABS DRAWN, NS INFUSING PER EMAR. PT MINIMALLY ABLE TO ASSIST IN CHANGEOVER TO HOSPITAL ATTIRE, RESTING QUIETLY WITH EYES CLOSED. PT THEN SUDDENLY BEGAN ATTEMPTING TO GET SELF OUT OF BED, THIS RN INQUIRED IF PT NEEDED ANYTHING, PT VERBALIZED SHE NEEDED TO URINATE, PT PLACED ON BEDPAN, URINE SAMPLE ATTAINED. PT THEN WENT BACK TO APPARENT SLEEPING W/ EVEN UNLABORED RESPIRATIONS.
[2020-11-05 22:39] LABS: Amphetamine Screen Urine Not Detected (Not Detect); Barbiturates, Urine Not Detected (Not Detect); Benzodiazepines Screen Urine Not Detected (Not Detect); Cannabinoid Screen Urine Not Detected (Not Detect); Cocaine Screen Urine Not Detected (Not Detect); Opiate Screen Urine Not Detected (Not Detect); Phencyclidine Screen Urine Not Detected (Not Detect)
[2020-11-05 23:06] VITALS: BP 122/77; PULSE 110; RESP 16; O2SAT 98
[2020-11-05 23:45] VITALS: BP 130/84; PULSE 108; RESP 18; O2SAT 98
--- NOTE | 2020-11-05 23:57 | PC.NURSE ---
pt woke up and was incont after using the bedpan 15 min earlier. pt follows commands, tired feeling. on room air 95% sleeping, 98% when awake. hr 103
[2020-11-06] VITALS: RESP 18
--- NOTE | 2020-11-06 01:19 | PC.NURSE ---
pt oob walking with a steady gait. pt wanting detox. pt father Tl called and also wants his daughter to go to rehab. fathers number [phone]. father has called a 2nd time and states the pt has a room at [facility] for rehab [phone]. [phone]. father states they will pick her up in the am. this rn is trying to confirm this information at this time.
--- NOTE | 2020-11-06 01:46 | PC.NURSE ---
pt states it is ok to talk with her mom about rehab and going home. mom is in her contacts [phone].
--- NOTE | 2020-11-06 02:33 | PC.NURSE ---
pt states she wants to do this on her own to seek rehab. pt states her parents are looking at [facility]. pt very upset and states she wants to go to [place] for rehab. pt states she left due to when she is detoxing she gets very angry and left the program. father Tl [phone] mother Silvia [phone] male friend Jose F [phone]
[2020-11-06] MEDS: chlordiazePOXIDE HCl 5 MG CAPSULE 10 MG PO (03:21)
--- NOTE | 2020-11-06 03:39 | PC.NURSE ---
pt has aggreed to meet with the care team in the morning to seek detox. pt family is aware,. pt has been medicated for withdrawls, anxiouse with mild tremors visable seen. pt needs at bedside, vitals stable, skin pink warm and dry. water and sandwhich given. pt still denies s1 or h1. pt is calm and cooperative with staff and is very thankful at this time.
[2020-11-06 04:00] VITALS: RESP 18
--- NOTE | 2020-11-06 04:01 | PC.NURSE ---
pt having a difficult time sleeping. pt requesting a sleeper. warm blanket, beverage and snacks given to pt.
--- NOTE | 2020-11-06 04:33 | PC.NURSE ---
pt sleeping rr even and reg. skin warn and dry no s/s of resp distress. env modified for pt sleeping. call carranza at bedside.
--- NOTE | 2020-11-06 04:57 | PC.NURSE ---
pt sleeping rr even and reg no s/s of distress. plan is to have care team assess pt for detox placement.
[2020-11-06 05:56] VITALS: BP 107/71; PULSE 101; RESP 16; O2SAT 96
[2020-11-06 06:00] VITALS: BP 109/69; PULSE 97; RESP 16; O2SAT 97
--- NOTE | 2020-11-06 08:47 | MHC.RECOVSUP ---
Recovery Support note: Patient is a 29 year old Austrian speaking female who presented to [facility] ED intoxicated and reporting substance use. Patient expressed a desire to go to detox, stating that if she leaves she will end up using again. This feature writer met with patient to see if patient would be willing to go to [facility]. Patient reports that she was hoping she could remain in the hospital to detox, this feature writer explained that this is not an option at this time. Patient agreeable to going to [place]. Patient information has been faxed and is currently being reviewed. If patient is accepted for treatment, patient will complete a phone intake and patient reports her Mother will be able to pick her up and facilitate transportation. ED Provider and RN aware.
[2020-11-06 08:49] LABS: COVID-19 Test Negative (Negative)
--- NOTE | 2020-11-06 10:42 | MHC.RECOVSUP ---
Patient has been accepted to [place] for detox at 1145. N-N completed.
== END 2020-11-06 10:48 | disposition home or self-care (01) ==
PROVIDERS: Student in an Organized Health Care Education/Training Program; Emergency Provider Emergency Medicine Emergency Medical Services
DX: F10.239 Alcohol dependence with withdrawal, unspecified (principal); F11.10 Opioid abuse, uncomplicated; F12.10 Cannabis abuse, uncomplicated; Z20.828 Contact with and (suspected) exposure to other viral communicable diseases; Z79.899 Other long term (current) drug therapy
CPT/HCPCS: 36415; 80053; 80307; 80320; 82947; 84702; 85025; 87635; 96361; 96374; 99285; J2405

== ENCOUNTER 2020-11-18 11:27 | Emergency (ER) | payer OTHER, SELFPAY ==
[2020-11-18 12:47] VITALS: BP 172/93; PULSE 90; RESP 18; TEMP 37.1; O2SAT 98; BMI 26.6
--- NOTE | 2020-11-18 16:00 | ED.HA ---
HPI - Headache General Chief Complaint: Headache Stated Complaint: HBP Time Seen by Provider: 11/18/20 15:57 Source: patient Mode of arrival: ambulatory Limitations: no limitations History of Present Illness HPI Narrative: HTN reported for a few weeks but worse since Monday due to patient tapering off ETOH in two days, she also has sig caffiene intake at this time - also c/o mild headache MD elicited complaint: headache Pertinent past history: other (ETOH withdrawal last drink on Monday) Onset (ago): week(s) (2) Onset description: gradually Location: generalized Severity: moderate Quality & Timing: aching and progressively worsening Exacerbating factors: other (she stopped drinking ETOH) Relieving factors: nothing Context: other (has a lot of caffiene intake and stopped drinking ETOh) Associated symptoms: other (headache) Treatments prior to arrival: none Related Data Previous Rx's Medication Instructions Recorded famotidine 10 mg PO BID #10 tab 09/25/20 chlordiazepoxide HCl 25 mg PO Q4H PRN #20 cap 11/18/20 chlordiazepoxide HCl 25 mg PO Q4H PRN #20 cap 11/18/20 Allergies Allergy/AdvReac Type Severity Reaction Status Date / Time No Known Allergies Allergy Verified 11/18/20 12:49 [No Known Allergies*] Review of Systems Review of Systems: Constitutional : No Fever, No Chills, No Fatigue ENT/Mouth : No sore throat, No Rhinorrhea Eyes: No Eye Pain, No Swelling, No Redness Cardiovascular : No Chest Pain, No SOB, No Dyspnea on Exertion Respiratory : No Cough, No Sputum Gastrointestinal : No Nausea, No Vomiting, No Diarrhea, No abdominal Pain Genitourinary : No Dysuria, No Urinary Frequency, No Hematuria, Musculoskeletal : No joint pain, No Myalgias, No Joint Swelling Skin : No Skin Lesions, No rash Neuro : No Weakness, No Numbness, No Dizziness, positive Headache Psych : pos Anxiety/Panic, No Depression Heme/Lymph: No Bruising, No Bleeding,No Lymphadenopathy Endocrine : No Polyuria, No Polydipsia All other systems reviewed and are negative [facility] Past Medical History Attestation statement: The following information was validated with the patient. Medical History Alcohol withdrawal seizure Alcoholism Anxiety Depression Family History Family History Brother Substance abuse Social History Social History Household Members: Family Housing: House Alcohol intake: former Smoking Status: Never smoker Use of substances other than those prescribed or required for medical reasons: No Substance Use Type: Marijuana Advance Directives: No Advance Directives Information Provided: Yes service: No Current occupational status: unemployed Physical Exam Vital Signs: Vital Signs: Last Vital Signs Temp 97.5 F 11/18/20 16:02 Pulse 85 11/18/20 18:19 Resp 16 11/18/20 18:19 BP 149/109 H 11/18/20 18:19 Pulse Ox 98 11/18/20 18:19 Body Mass Index 26.6 Appearance: Alert. Oriented X3. No acute distress. Anxious Eyes: Pupils equal, round and reactive to light. ENT: Pharynx normal. Neck: Normal inspection. Neck supple. CVS: Normal heart rate and rhythm. Pulses normal. Respiratory: No respiratory distress. Breath sounds normal. Abdomen: Soft and nontender. Skin: Skin warm and dry. Normal skin color. Normal skin turgor. Extremities: No lower extremity edema. No calf ttp Neuro: Oriented X 3. No motor deficit. No sensory deficit. Course Course Course Narrative: still HTN and tachycardic slight tremors will give IM ativan at this time patient feels better, BP better, stable for DC call from [facility] requesting librium be resent to [facility] as they have no librium available MDM - Headache MDM Narrative Medical decision making narrative: 30 yo female with hx of ETOH withdrawal here with HTN after taking herself off ETOH abruptly - she complains of headache but no fevers and no deficitis, she will need CT head to r/o trauma, she declines ETOH detox, will start her on oral librium and reassess. Lab Data Labs: Lab Results 11/18/20 Range/Units 16:17 Urine Test NEGATIVE (NEGATIVE) Discharge Plan Discharge Clinical Impression: Alcohol withdrawal Qualifiers: Complication of substance-induced condition: uncomplicated Qualified Code(s): F10.230 - Alcohol dependence with withdrawal, uncomplicated Patient Disposition: Home, Self-Care Instructions: Alcohol Withdrawal (ED) Additional Instructions: return to ED for any worsening symptoms or concerns please cut down your caffeine intake if possible Prescriptions: New chlordiazepoxide HCl 25 mg capsule 25 mg PO Q4H PRN (Reason: alcohol withdrawal) Qty: 20 RF: 0 chlordiazepoxide HCl 25 mg capsule 25 mg PO Q4H PRN (Reason: alcohol withdrawal) Qty: 20 RF: 0 No Action famotidine 10 mg tablet 10 mg PO BID Qty: 10 RF: 0 Referrals: Mike Franks MD [Primary Care Provider] - 2 days (if not better) Interventions: ED Discharge Assessment Last Done: 11/18/20 18:31 Discharge Date/Time: 11/18/20 18:32
[2020-11-18 16:02] VITALS: BP 161/114; PULSE 98; RESP 20; TEMP 36.4; O2SAT 100
--- NOTE | 2020-11-18 16:04 | CT_ITS ---
EXAMINATION: CT HEAD WITHOUT CONTRAST CLINICAL INFORMATION: Headaches. COMPARISON: None TECHNIQUE: Contiguous axial imaging was performed from the skull base to vertex without intravenous administration of contrast. This CT examination was performed using dose optimization techniques as appropriate, variously including the following: *Automated exposure control *Adjustment of mA and/or kV according to patient size (this includes techniques or standardized protocols for targeted exams where dose is matched to indication/reason for exam; i.e. extremities or head) *Use of iterative reconstruction technique DLP: 702 mGy-cm FINDINGS: There is no evidence of acute intracranial hemorrhage or territorial infarction. No abnormal mass effect or midline shift is seen. Ugarte to white matter differentiation is well preserved. No extra-axial fluid collections are identified. The ventricles are normal in size. There is no abnormal attenuation within the brain parenchyma. The osseous structures and soft tissues are normal. The mastoid air cells and visualized portions of the paranasal sinuses are well aerated. CT/CT head/brain wo con IMPRESSION: No acute intracranial process seen.
[2020-11-18] MEDS: chlordiazePOXIDE HCl 25 MG CAPSULE PO ×2 (16:10→16:28)
[2020-11-18 16:26] LABS: UPreg QC Valid YES; Urine Pregnancy NEGATIVE (NEGATIVE)
--- NOTE | 2020-11-18 16:29 | SUR.OPER ---
Pt reports daily ETOH, attempting to ween self off x2 days, reports frontal headache is lessen than upon arrival. Medicated per emar. Tolerating PO fluids/ foods well. Pending CT report. Pt declined offer for detox info/services
[2020-11-18 17:02] VITALS: BP 160/110; PULSE 96; RESP 16; O2SAT 97
[2020-11-18 17:25] VITALS: BP 159/107; PULSE 110
[2020-11-18] MEDS: LORazepam 2 MG/ML VIAL IM (17:35)
[2020-11-18 18:19] VITALS: BP 149/109; PULSE 85; RESP 16; O2SAT 98
== END 2020-11-18 18:32 | disposition home or self-care (01) ==
PROVIDERS: Emergency Provider Emergency Medicine; PCP Internal Medicine
DX: F10.230 Alcohol dependence with withdrawal, uncomplicated (principal); R51.9 Headache, unspecified
CPT/HCPCS: 70450; 81025; 96372; 99284; J2060

== ENCOUNTER 2021-01-17 15:56 | Emergency (ER) | payer OTHER, SELFPAY ==
[2021-01-17 16:14] VITALS: BP 121/88; PULSE 108; RESP 17; TEMP 36.9; O2SAT 94; BMI 24.7
--- NOTE | 2021-01-17 16:26 | PC.NURSE ---
patient a&ox3, denies si/hi, patient states she drinks daily but does not use any type of drugs, pt answering in short sentences and avoiding answering some questions, pt currently doing changeover with security and awaiting provider
[2021-01-17 18:00] VITALS: BP 141/84; PULSE 112; RESP 20; TEMP 37.4; O2SAT 99
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
[2021-01-17 18:23] LABS: MANUAL DIFF FLAG NO
[2021-01-17 18:25] LABS: Basophils Percent Auto 0.6 % (0-2); Eosinophils Percent Auto 0.1 % (0-4); Hematocrit 45.5 % (37-47); Hemoglobin 14.7 g/dl (12.0-16.0); Imm Gran Abs Auto 0.01 X10*3/uL (0.00-0.03); Imm Gran Pct Auto 0.1 % (0.0-0.4); Lymphocytes Absolute Auto 2.4 X10*3/uL (1.2-4.9); Lymphocytes Percent Auto 33.6 % (20-40); Mean Corpuscular HGB Conc 32.3 g/dl (31.0-35.0); Mean Corpuscular Hemoglobin 26.7 pg (27.0-33.0); Mean Corpuscular Volume 82.7 fL (80-98); Mean Platelet Volume 9.4 fL (9.4-12.3); Monocytes Absolute Auto 0.3 X10*3/uL (0.1-1.2); Monocytes Percent Auto 3.8 % (2-11); Neutrophils Absolute Auto 4.3 X10*3/uL (2.0-8.3); Neutrophils Percent Auto 61.8 % (45-73); Platelet Count 300 X10*3/uL (160-400); Red Cell Distribution Width 16.1 % (11.0-16.0)
--- NOTE | 2021-01-17 18:46 | PC.NURSE ---
patient a&ox3, pt wants to discharge but was told she needed to have labs drawn and obtain a urine, patients labs drawn, sitter at bedside, will continue to monitor.
[2021-01-17 18:47] LABS: Ethanol 334 mg/dL
[2021-01-17 18:49] LABS: Alanine Aminotransferase 10 U/L (0-31); Albumin Level 4.6 g/dL (3.5-5.0); Alkaline Phosphatase 64 U/L (39-117); Anion Gap 17 (12-20); Aspartate Amino Transferase 23 U/L (5-31); Bilirubin Direct 0.2 mg/dL (0.0-0.5); Bilirubin Total 0.4 mg/dL (0.0-1.0); Blood Urea Nitrogen 6 mg/dL (9-16); Calcium 8.8 mg/dL (8.4-10.2); Carbon Dioxide 28 mmol/L (22-29); Chloride 103 mmol/L (96-108); Creatinine Clr Calc Pharmacy 102.5; Estimated Glomerular Filt Rate > 60; Glucose Random 98 mg/dL (60-115); Potassium 4.7 mmol/L (3.3-5.1); Sodium 143 mmol/L (135-145); Total Protein 8.1 g/dL (6.5-8.0)
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
[2021-01-17 20:00] VITALS: BP 117/71; PULSE 114; RESP 16; TEMP 36.4; O2SAT 99
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
== END 2021-01-17 22:45 | disposition home or self-care (01) ==
PROVIDERS: Physician Assistant; Emergency Provider Internal Medicine; PCP Internal Medicine
DX: F10.129 Alcohol abuse with intoxication, unspecified (principal); R45.851 Suicidal ideations; Y90.8 Blood alcohol level of 240 mg/100 ml or more; F33.1 Major depressive disorder, recurrent, moderate; F12.90 Cannabis use, unspecified, uncomplicated; Z63.8 Other specified problems related to primary support group; Z79.899 Other long term (current) drug therapy
CPT/HCPCS: 36415; 80053; 80076; 80320; 82248; 85025; 99285

== ENCOUNTER 2021-04-08 18:09 | Inpatient (IN) | payer OTHER, SELFPAY ==
--- NOTE | ~2021-04-08 | XR_ITS ---
EXAMINATION: XR CHEST CLINICAL INFORMATION: Chest tightness COMPARISON: None TECHNIQUE: Frontal view of the chest was obtained. FINDINGS: No significant abnormality is noted involving the heart, lungs, mediastinum, bony thorax or soft tissues. XR/XR chest 1V IMPRESSION: Unremarkable chest examination.
[2021-04-08 18:15] VITALS: BP 138/108; PULSE 113; RESP 18; TEMP 36.7; O2SAT 96; BMI 26.5
[2021-04-08 20:00] VITALS: BP 139/98; PULSE 105; RESP 14; O2SAT 97
--- NOTE | 2021-04-08 20:30 | PC.NURSE ---
Addendum entered by Deedee Lagnuas RN 04/08/21 20:36: patient also states she drinks a pint of whiskey on top of the six beers Original Note: Patient states she drinks 6, 16oz beers a day and was trying to detox at home by herself but was unsuccessful and is looking for help to detox
--- NOTE | 2021-04-08 20:32 | MHC.RECOVSUP ---
? Reason for consult: Support o Current location: ED15 o Identified substance use concern: Alcohol - Withdrawal - Support ? Intervention: o Community resources provided o Harm reduction discussion ? Plan: o Referral to CCC o Patient to follow up with HF after discharge ? Additional information: Patient dose not want to go to detox.. But is seeking getting hydrated.. also resources where she can find recovery meeting..
--- NOTE | 2021-04-08 20:33 | PC.NURSE ---
patient states last drink was this morning. patient also admits to prior seizures during alcohol withdrawl associated with hallucinations and blurry vision
--- NOTE | 2021-04-08 20:39 | ECG_ITS ---
Test Reason : CHEST PAIN Blood Pressure : / mmHG Vent. Rate : 111 BPM Atrial Rate : 111 BPM P-R Int : 148 ms QRS Dur : 082 ms QT Int : 356 ms P-R-T Axes : 068 -34 044 degrees QTc Int : 484 ms Sinus tachycardia Possible Left atrial enlargement Left axis deviation Abnormal ECG When compared with ECG of 23-SEP-2020 06:16, No significant change was found Referred By: Destinee Rubio Electronically Signed By:CARLOS SEGAL MD
--- NOTE | 2021-04-08 20:39 | ED.GENADULT ---
HPI - General Adult General Chief complaint: General Medical Stated complaint: seeking detox Time Seen by Provider: 04/08/21 21:21 Source: patient Mode of arrival: ambulatory Limitations: no limitations History of Present Illness HPI narrative: 30-year-old female presents for alcohol withdrawals. Patient states that she is having auditory and visual hallucinations, is tremors, and is looking for help to stop drinking. Last drink was and 8:00 a.m. this morning. She does not report any illicit drug use. She does feel some chest pressure and palpitations, has been nauseous and has been vomiting for most of the day. Onset (ago): day(s) (1) Location: chest and abdomen Severity: severe Severity scale (1-10): 10 Pain Consistency: constant Relieving factors: none Associated symptoms: nausea/vomiting Related Data Home Medications Medication Instructions Recorded Confirmed No Known Home Meds 04/08/21 04/08/21 Allergies Allergy/AdvReac Type Severity Reaction Status Date / Time No Known Allergies Allergy Verified 11/18/20 12:49 [No Known Allergies*] Review of Systems Review of Systems: Constitutional: No Fever, No Chills ENT/Mouth: No sore throat, No Rhinorrhea Eyes: No Eye Pain, No Swelling, No Redness Cardiovascular: No Chest Pain, No SOB Respiratory: No Cough, No Sputum Gastrointestinal: No Nausea, No Vomiting, No Diarrhea, No abdominal Pain Genitourinary: No Dysuria, No Hematuria Musculoskeletal: No joint pain, No Myalgias, No Joint Swelling Skin: No Skin Lesions, No rash Neuro: No Weakness, No Numbness, No Loss of Consciousness, No Dizziness, No Headache Psych: Positive alcohol abuse, No Anxiety, No Depression, No SI/HI/AH/VH Heme/Lymph: No Bruising, No Bleeding,No Lymphadenopathy Endocrine: No Polyuria, No Polydipsia Yes all other systems are reviewed and are negative [facility] Past Medical History Attestation statement: The following information was validated with the patient. Source: old records reviewed Medical History Alcohol withdrawal seizure Alcoholism Anxiety Depression Family History Family History Brother Substance abuse Social History Social History Household Members: Family Housing: House Alcohol intake: current Alcohol intake frequency: 3 or more drinks per day Alcohol type: beer Smoking Status: Never smoker Use of substances other than those prescribed or required for medical reasons: No Substance Use Type: Marijuana Advance Directives: No Advance Directives Information Provided: Yes Patient : No service: No Current occupational status: unemployed Physical Exam Vital Signs: Vital Signs: Last Vital Signs Temp 98.2 F 04/08/21 22:18 Pulse 101 H 04/08/21 22:18 Resp 14 04/08/21 22:18 BP 111/77 04/08/21 22:18 Pulse Ox 98 04/08/21 22:18 Body Mass Index 26.5 Appearance: Alert. Oriented X3. Moderate distress. Active EtOH withdrawal Eyes: Pupils equal, round and reactive to light. Sclera nonicteric ENT: Pharynx normal. Neck: Normal inspection. Neck supple. CVS: Tachycardic heart rate and rhythm. Pulses normal. Respiratory: No respiratory distress. Breath sounds normal. Abdomen: Soft and nontender. Skin: Skin warm and dry. Normal skin color. Normal skin turgor. Extremities: No lower extremity edema. Moves all extremities against resistance, gait well but also coordinated Neuro: Tremors, No motor deficit. No sensory deficit. Cranial nerves 2-12 intact Course Course Course Narrative: 30-year-old female presents to the emergency department for alcohol detox. Actively having auditory and visual hallucinations, disaster recovery specialist and discussed plan with patient. At this time, phenobarbital protocol started as patient is in active withdrawals. She drinks 6- 16 oz beers and 1 pt of whiskey daily. She has been drinking like this for approximately 3 years. Discussion with hospitalist regarding plan of care, will admit for ETOH delirium. Patient verbalized understanding of and agrees plan of care. Consultations Consultation #1: Bert Medical Decision Making MDM Narrative Medical decision making narrative: Alcohol withdrawals Medical Records Medical records reviewed: Yes I reviewed the patient's medical records. Lab Data Lab results reviewed: Yes I reviewed the patient's lab results. Result diagrams: 04/08/21 21:02 04/08/21 21:02 Labs: Lab Results 04/08/21 04/08/21 04/08/21 Range/Units 21:02 21:02 21:02 WBC 7.4 (4.8-10.8) X10*3/uL RBC 5.04 (4.20-5.50) X10*6/uL Hgb 13.7 (12.0-16.0) g/dl Hct 40.9 (37-47) % MCV 81.2 (80-98) fL MCH 27.2 (27.0-33.0) pg MCHC 33.5 (31.0-35.0) g/dl RDW 14.4 (11.0-16.0) % Plt Count 198 D (160-400) X10*3/uL MPV 9.6 (9.4-12.3) fL Immature Gran % (Auto) 0.3 (0.0-0.4) % Neut % (Auto) 68.9 (45-73) % Lymph % (Auto) 25.4 (20-40) % [place] % (Auto) 5.0 (2-11) % Eos % (Auto) 0.0 (0-4) % Baso % (Auto) 0.4 (0-2) % Lymph # (Auto) 1.9 (1.2-4.9) X10*3/uL [place] # (Auto) 0.4 (0.1-1.2) X10*3/uL Eos # (Auto) 0.0 (0.0-0.4) X10*3/uL Baso # (Auto) 0.0 (0.0-0.2) X10*3/uL Abs Immat Gran (auto) 0.02 (0.00-0.03) X10*3/uL Absolute Neuts (auto) 5.1 (2.0-8.3) X10*3/uL Absolute Nucleated RBC 0.000 (0.0-0.012) X10*3/uL Nucleated RBC % (auto) 0.0 (0.0-0.2) /100WBC PT 12.2 (10.8-13.0) SEC INR 1.0 (0.9-1.1) APTT 30.5 (24.1-38.0) SEC Sodium 142 (135-145) mmol/L Potassium 4.1 (3.3-5.1) mmol/L Chloride 104 (96-108) mmol/L Carbon Dioxide 26 (22-29) mmol/L Anion Gap 16 (12-20) BUN 5 L (9-16) mg/dL Creatinine 0.63 (0.5-1.4) mg/dL Estim Creat Clear Calc 120.9 Estimated GFR > 60 Random Glucose 94 (60-115) mg/dL Calcium 8.8 (8.4-10.2) mg/dL Magnesium 1.9 (1.6-2.6) mg/dL Total Bilirubin 0.5 (0.0-1.0) mg/dL Direct Bilirubin 0.2 (0.0-0.5) mg/dL AST 40 H D (5-31) U/L ALT 16 (0-31) U/L Alkaline Phosphatase 89 D (39-117) U/L Ammonia (13-55) umol/L Troponin I High Sens (<3.5-17.0) ng/L Total Protein 7.9 (6.5-8.0) g/dL Albumin 4.4 (3.5-5.0) g/dL Lipase 27 (8-78) U/L 04/08/21 04/08/21 Range/Units 21:02 21:30 WBC (4.8-10.8) X10*3/uL RBC (4.20-5.50) X10*6/uL Hgb (12.0-16.0) g/dl Hct (37-47) % MCV (80-98) fL MCH (27.0-33.0) pg MCHC (31.0-35.0) g/dl RDW (11.0-16.0) % Plt Count (160-400) X10*3/uL MPV (9.4-12.3) fL Immature Gran % (Auto) (0.0-0.4) % Neut % (Auto) (45-73) % Lymph % (Auto) (20-40) % [place] % (Auto) (2-11) % Eos % (Auto) (0-4) % Baso % (Auto) (0-2) % Lymph # (Auto) (1.2-4.9) X10*3/uL [place] # (Auto) (0.1-1.2) X10*3/uL Eos # (Auto) (0.0-0.4) X10*3/uL Baso # (Auto) (0.0-0.2) X10*3/uL Abs Immat Gran (auto) (0.00-0.03) X10*3/uL Absolute Neuts (auto) (2.0-8.3) X10*3/uL Absolute Nucleated RBC (0.0-0.012) X10*3/uL Nucleated RBC % (auto) (0.0-0.2) /100WBC PT (10.8-13.0) SEC INR (0.9-1.1) APTT (24.1-38.0) SEC Sodium (135-145) mmol/L Potassium (3.3-5.1) mmol/L Chloride (96-108) mmol/L Carbon Dioxide (22-29) mmol/L Anion Gap (12-20) BUN (9-16) mg/dL Creatinine (0.5-1.4) mg/dL Estim Creat Clear Calc Estimated GFR Random Glucose (60-115) mg/dL Calcium (8.4-10.2) mg/dL Magnesium (1.6-2.6) mg/dL Total Bilirubin (0.0-1.0) mg/dL Direct Bilirubin (0.0-0.5) mg/dL AST (5-31) U/L ALT (0-31) U/L Alkaline Phosphatase (39-117) U/L Ammonia 31 (13-55) umol/L Troponin I High Sens < 3.5 (<3.5-17.0) ng/L Total Protein (6.5-8.0) g/dL Albumin (3.5-5.0) g/dL Lipase (8-78) U/L Imaging Data Chest x-ray: Attestation: I personally reviewed and interpreted this imaging study as follows: Radiologist's impression: EXAMINATION: XR CHEST CLINICAL INFORMATION: Chest tightness COMPARISON: None TECHNIQUE: Frontal view of the chest was obtained. FINDINGS: No significant abnormality is noted involving the heart, lungs, mediastinum, bony thorax or soft tissues. XR/XR chest 1V IMPRESSION: Unremarkable chest examination. ECG Data Attestation: I personally reviewed and interpreted this ECG as follows: Critical Care Time Critical Care Time Critical Care Time: Yes Total Critical Care Time: 60 Attestation: I have personally provided critical care time exclusive of time spent on separately billable procedures. Time includes review of laboratory data, radiology results, discussion with consultants, and monitoring for potential decompensation. Interventions were performed as documented. Discharge Plan Discharge Clinical Impression: Alcohol abuse with withdrawal delirium Patient Disposition: Admitted As Inpatient
--- NOTE | 2021-04-08 20:50 | PC.NURSE ---
Seizure precautions in place and patient placed on the monitor
[2021-04-08] MEDS: 0.9 % Sodium Chloride 1,000 ML 999 ML IVCONT (21:04)
[2021-04-08 21:09] LABS: Basophils Percent Auto 0.4 % (0-2); Hematocrit 40.9 % (37-47); Hemoglobin 13.7 g/dl (12.0-16.0); Imm Gran Abs Auto 0.02 X10*3/uL (0.00-0.03); Imm Gran Pct Auto 0.3 % (0.0-0.4); Lymphocytes Absolute Auto 1.9 X10*3/uL (1.2-4.9); Lymphocytes Percent Auto 25.4 % (20-40); MANUAL DIFF FLAG NO; Mean Corpuscular HGB Conc 33.5 g/dl (31.0-35.0); Mean Corpuscular Hemoglobin 27.2 pg (27.0-33.0); Mean Corpuscular Volume 81.2 fL (80-98); Mean Platelet Volume 9.6 fL (9.4-12.3); Monocytes Absolute Auto 0.4 X10*3/uL (0.1-1.2); Neutrophils Absolute Auto 5.1 X10*3/uL (2.0-8.3); Neutrophils Percent Auto 68.9 % (45-73); Platelet Count 198 X10*3/uL (160-400); Red Blood Count 5.04 X10*6/uL (4.20-5.50); Red Cell Distribution Width 14.4 % (11.0-16.0); White Blood Count 7.4 X10*3/uL (4.8-10.8)
[2021-04-08 21:15] LABS: Prothrombin Time 12.2 SEC (10.8-13.0)
[2021-04-08 21:18] LABS: Partial Thromboplastin Time 30.5 SEC (24.1-38.0)
[2021-04-08] MEDS: PHENobarbitaL sodium 130 MG/ML VIAL 252 MG IM (21:24)
[2021-04-08 21:32] LABS: Alanine Aminotransferase 16 U/L (0-31); Albumin Level 4.4 g/dL (3.5-5.0); Alkaline Phosphatase 89 U/L (39-117); Anion Gap 16 (12-20); Aspartate Amino Transferase 40 U/L (5-31); Bilirubin Direct 0.2 mg/dL (0.0-0.5); Bilirubin Total 0.5 mg/dL (0.0-1.0); Blood Urea Nitrogen 5 mg/dL (9-16); Calcium 8.8 mg/dL (8.4-10.2); Carbon Dioxide 26 mmol/L (22-29); Chloride 104 mmol/L (96-108); Creatinine Clr Calc Pharmacy 120.9; Estimated Glomerular Filt Rate > 60; Glucose Random 94 mg/dL (60-115); Lipase 27 U/L (8-78); Magnesium 1.9 mg/dL (1.6-2.6); Potassium 4.1 mmol/L (3.3-5.1); Sodium 142 mmol/L (135-145); Total Protein 7.9 g/dL (6.5-8.0)
[2021-04-08 21:56] LABS: Ammonia 31 umol/L (13-55)
[2021-04-08 22:18] VITALS: BP 111/77; PULSE 101; RESP 14; TEMP 36.8; O2SAT 98
[2021-04-08 22:35] LABS: Troponin-I High Sensitivity < 3.5 ng/L (<3.5-17.0)
[2021-04-08 23:22] VITALS: BP 111/77; PULSE 90; RESP 16; TEMP 36.8; O2SAT 98
--- NOTE | 2021-04-08 23:42 | P.HPHOSP_ITS ---
History of Present Illness Date of Service: 04/08/21 Chief Complaint: alcohol withdrawal This is a 30-year-old female with past medical history of alcohol abuse who presents to the hospital with complaints of alcohol withdrawal. Patient reports that she was trying to detox on her own and slowly was cutting down her alcohol use last drink was this a.m. at around 8 when she started developing hallucinations both auditory and visual. Therefore decided to come to the hospital as she has history of withdrawals seizures. Patient reports that she has also been not eating or drinking well, her memory is affected 2 to her alcohol abuse, denies any chest pain, no shortness of breath, no abdominal pain nausea or vomiting, urinary symptoms and no lower extremity edema. No headache or change in vision. On arrival to the ED patient's vital significant for temperature of 98.2?, heart rate of 101, respiratory rate of 14, satting 98% on room air with blood pressure of 111/77 Labs are significant for WBC count of 7.4 hemoglobin of 13.7, AST of 40, ammonia 35, COVID-19 negative, otherwise unremarkable Chest x-ray negative Past medical history as below and confirmed with patient Review of Systems Review of Systems: Yes all other systems are reviewed and are negative [facility] Medical History Alcohol withdrawal seizure Alcoholism Anxiety Depression Family History Brother Substance abuse Social History (Updated 04/09/21 @ 06:26 by Etta Noel MD) Household Members: Family Housing: House Alcohol intake: current Alcohol intake frequency: 3 or more drinks per day Alcohol type: beer Smoking Status: Never smoker Use of substances other than those prescribed or required for medical reasons: No Substance Use Type: Marijuana Advance Directives: No Advance Directives Information Provided: Yes Patient : No service: No Current occupational status: unemployed Meds Allergies Allergy/AdvReac Type Severity Reaction Status Date / Time No Known Allergies Allergy Verified 11/18/20 12:49 [No Known Allergies*] Active Medications: Current Medications Generic Name Dose Route Start Last Admin Trade Name Freq PRN Reason Stop Dose Admin Acetaminophen 650 mg 04/08/21 23:22 Acetaminophen 325 Mg Tablet PO Q6H PRN Pain, Mild (Pain Scale 1-3) Docusate Sodium 100 mg 04/08/21 23:22 Docusate Sodium 100 Mg Capsule PO DAILY PRN Constipation Enoxaparin Sodium 40 mg 04/09/21 00:00 Enoxaparin Sodium 40 Mg/0.4 Ml Syringe SUBCUT Q24H [facility] Folic Acid 1 mg 04/09/21 09:00 Folic Acid 1 Mg Tablet PO DAILY [facility] Medication 1 each 04/08/21 21:00 No Benzodiazepines MISCELLANE DAILY [facility] Ondansetron HCl 4 mg 04/08/21 23:22 Ondansetron Hcl 4 Mg/2 Ml Vial IVPUSH Q8H PRN Nausea and Vomiting Phenobarbital 45 mg 04/09/21 09:00 Phenobarbital 15 Mg Tablet PO 04/10/21 21:01 BID [facility] Phenobarbital 15 mg 04/11/21 09:00 Phenobarbital 15 Mg Tablet PO 04/12/21 21:01 BID [facility] Phenobarbital 15 mg 04/13/21 09:00 Phenobarbital 15 Mg Tablet PO 04/14/21 09:01 DAILY [facility] Phenobarbital Sodium 189 mg 04/09/21 00:00 Phenobarbital Sodium 130 Mg/Ml Vial IM 04/09/21 03:01 Q3H [facility] Sodium Chloride 3 ml 04/09/21 00:00 0.9 % Sodium Chloride Flush 3 Ml Syringe IVFLUSH QSHIFT [facility] Thiamine HCl 100 mg 04/09/21 09:00 Thiamine Hcl 100 Mg Tablet PO DAILY [facility] Home Medications Medication Instructions Recorded Confirmed Last Taken Type No Known Home Meds 04/08/21 04/08/21 Unknown History Physical Exam Vital Signs and Narrative: Vital Signs: Last Vital Signs Temp 98.2 F 04/08/21 22:18 Pulse 101 H 04/08/21 22:18 Resp 14 04/08/21 22:18 BP 111/77 04/08/21 22:18 Pulse Ox 98 04/08/21 22:18 Body Mass Index 26.5 Const: General: cooperative and no acute distress Orientation/consciousness: patient oriented x3 Eyes: General: appearance normal, both eyes and all related structures Pupils: Equal, round and reactive pupils present Resp: Effort & Inspection: normal respiratory effort, able to speak in complete sentences and abnormal respiratory pattern Auscultation: clear to auscultation bilaterally Cardio: Rate: regular rate Rhythm: regular rhythm GI: Palpation (GI): Soft to palpation Auscultation: normal bowel sounds Skin: General skin exam: no rashes or lesions noted Neuro: General: patient oriented x3 Cranial nerves: Yes Equal, round and reactive pupils present Cognition (Neuro): normal cognition Extrem: General: Yes normal to inspection and Yes no pedal edema Results Labs CBC and Chem 7: 04/08/21 21:02 04/08/21 21:02 Labs: Laboratory Results - last 24 hr 04/08/21 04/08/21 04/08/21 21:02 21:02 21:02 MCV 81.2 MCH 27.2 MCHC 33.5 RDW 14.4 Plt Count 198 D MPV 9.6 Immature Gran % (Auto) 0.3 Neut % (Auto) 68.9 Lymph % (Auto) 25.4 [place] % (Auto) 5.0 Eos % (Auto) 0.0 Baso % (Auto) 0.4 Lymph # (Auto) 1.9 [place] # (Auto) 0.4 Eos # (Auto) 0.0 Baso # (Auto) 0.0 Abs Immat Gran (auto) 0.02 Absolute Neuts (auto) 5.1 Absolute Nucleated RBC 0.000 Nucleated RBC % (auto) 0.0 PT 12.2 INR 1.0 APTT 30.5 Anion Gap 16 Estim Creat Clear Calc 120.9 Estimated GFR > 60 Random Glucose 94 Calcium 8.8 Magnesium 1.9 Total Bilirubin 0.5 Direct Bilirubin 0.2 AST 40 H D ALT 16 Alkaline Phosphatase 89 D Ammonia Troponin I High Sens Total Protein 7.9 Albumin 4.4 Lipase 27 04/08/21 04/08/21 21:02 21:30 MCV MCH MCHC RDW Plt Count MPV Immature Gran % (Auto) Neut % (Auto) Lymph % (Auto) [place] % (Auto) Eos % (Auto) Baso % (Auto) Lymph # (Auto) [place] # (Auto) Eos # (Auto) Baso # (Auto) Abs Immat Gran (auto) Absolute Neuts (auto) Absolute Nucleated RBC Nucleated RBC % (auto) PT INR APTT Anion Gap Estim Creat Clear Calc Estimated GFR Random Glucose Calcium Magnesium Total Bilirubin Direct Bilirubin AST ALT Alkaline Phosphatase Ammonia 31 Troponin I High Sens < 3.5 Total Protein Albumin Lipase Imaging Radiologist's Impressions: Impressions Chest X-Ray 04/08/21 21:29 IMPRESSION: Unremarkable chest examination. Assessment and Plan (1) Alcohol abuse with withdrawal delirium: Status: Acute (2) Alcohol withdrawal delirium: Status: Acute This is a 30-year-old female presents to the hospital with complaints of visual and auditory hallucination after stopping alcohol # alcohol withdrawal delirium - has active auditory and visual hallucinations - last drink at 8:00 a.m. this morning - will start on phenobarb protocol - folic and start thiamine supplement # alcohol abuse and withdrawal - treatment as above - care team consulted as pt interested in abstinence DVT prophylaxis: Lovenox
[2021-04-08 23:46] LABS: COVID-19 Test Negative (Negative)
[2021-04-09] MEDS: PHENobarbitaL sodium 130 MG/ML VIAL 189 MG IM ×2 (01:14→04:00)
[2021-04-09] MEDS: 0.9 % Sodium Chloride Flush 3 ML SYRINGE IVFLUSH ×3 (01:14→14:59)
[2021-04-09 04:24] VITALS: BP 105/75; PULSE 81; RESP 13; O2SAT 98
[2021-04-09 06:00] VITALS: BP 111/67; PULSE 71; RESP 15; O2SAT 98
[2021-04-09 06:15] LABS: MANUAL DIFF FLAG NO
[2021-04-09 06:16] LABS: Basophils Percent Auto 0.5 % (0-2); Eosinophils Percent Auto 0.3 % (0-4); Hematocrit 38.4 % (37-47); Hemoglobin 12.5 g/dl (12.0-16.0); Imm Gran Abs Auto 0.01 X10*3/uL (0.00-0.03); Imm Gran Pct Auto 0.2 % (0.0-0.4); Lymphocytes Absolute Auto 1.4 X10*3/uL (1.2-4.9); Lymphocytes Percent Auto 21.3 % (20-40); Mean Corpuscular HGB Conc 32.6 g/dl (31.0-35.0); Mean Corpuscular Hemoglobin 26.9 pg (27.0-33.0); Mean Corpuscular Volume 82.6 fL (80-98); Mean Platelet Volume 9.6 fL (9.4-12.3); Monocytes Absolute Auto 0.4 X10*3/uL (0.1-1.2); Monocytes Percent Auto 5.4 % (2-11); Neutrophils Absolute Auto 4.8 X10*3/uL (2.0-8.3); Neutrophils Percent Auto 72.3 % (45-73); Platelet Count 144 X10*3/uL (160-400); Red Blood Count 4.65 X10*6/uL (4.20-5.50); Red Cell Distribution Width 14.6 % (11.0-16.0); White Blood Count 6.6 X10*3/uL (4.8-10.8)
[2021-04-09 06:41] LABS: Anion Gap 15 (12-20); Blood Urea Nitrogen 6 mg/dL (9-16); Calcium 8.5 mg/dL (8.4-10.2); Carbon Dioxide 24 mmol/L (22-29); Chloride 107 mmol/L (96-108); Creatinine Clr Calc Pharmacy 124.9; Estimated Glomerular Filt Rate > 60; Glucose Random 78 mg/dL (60-115); Potassium 3.8 mmol/L (3.3-5.1); Sodium 142 mmol/L (135-145)
[2021-04-09] MEDS: Folic Acid 1 MG TABLET PO (08:23)
[2021-04-09] MEDS: Thiamine HCL 100 MG TABLET PO (08:23)
[2021-04-09] MEDS: PHENobarbitaL 15 MG TABLET 45 MG PO ×2 (08:23→21:46)
[2021-04-09] MEDS: ondansetron HCL 4 MG/2 ML VIAL IVPUSH ×2 (08:24→19:55)
[2021-04-09 08:30] VITALS: BP 143/74; PULSE 103; RESP 18; TEMP 36.6; O2SAT 96
[2021-04-09 10:59] VITALS: BP 139/88; PULSE 96; RESP 18; TEMP 36.6; O2SAT 98
--- NOTE | 2021-04-09 13:00 | MHC.RECOVRN ---
30 year old female presented to [facility] ED on 04/08, ambulatory, due to seeking detox from alcohol last drink was this morning per hall worker. Upon evaluation, pt was actively experiencing auditory and visual hallucinations and subsequently admitted for treatment of alcohol use with?withdrawal delirium.? T/w met with pt in 363 after consult placed to CARE Team for alcohol detox. Pt reports alcohol use, 6 pack of 16 oz beer plus a pint of fireball daily on and off for one year. Prior to that, pt reports 12 packs of stronger beer. Pt states I'll take a 30 day break and then something will happen. Pt reports most recent time in recovery was 30 days earlier this year. Pt also reports 30 days in recovery in Jun 2020 after being sectioned. Pt reports one ATS admission to [facility] late last year, as well as hospital visits for alcohol withdrawal.? Pt finds going to the gym and keeping my mind busy help with recovery. Pt attended cheondoism this past Monday and is actively seeking evangelical help. Pt has a lot of family support after recently informing them of her AUD.? Recovery resources were discussed and provided. Pt is interested in naltrexone, educated regarding the medication. Appt with the [facility] will be made prior to discharge.? Case discussed with pts RN, CM, as well as Jen George APRN.?
--- NOTE | 2021-04-09 13:28 | MHC.CLN ---
RE: CONSULT WILL ADD ENSURE BID R/T POOR PO SUPPLEMENT PROVIDES 700KCALS, 40G PROTEIN MONITOR PO INTAKE CLOSELY
[2021-04-09] MEDS: Acetaminophen 325 MG TABLET 650 MG PO ×2 (13:36→19:52)
--- NOTE | 2021-04-09 14:25 | MHC.CM.PN ---
EMR REVIEWED, PT ADMITTED W/ALCOHOLIC DELERIUM, CM MET W/PT WHO IS CURRENTLY ALERT & ORIENTED X 4, PT REPORTS SHE LIVES W/HER MOTHER, IS INDEPENDENT W/ALL CARE, NO DME AND NO HOME SERVICES. PT VERIFIES PCP AND PHARMACY, PT CURRENTLY DECLINES ASSISTANCE W/COMPLETING AN HCP. PT HAS MET W/ RECOVERY SUPPORT NURSE REGARDING MEDICATION ASSISTED TX AND IS INTERESTED IN STARTING ON NALTREXONE, PER RECOVERY SUPPORT NURSE GILBERTO BURR WILL DISCUSS IF PT CAN START ON NALTREXONE WHILE INPT OR IF SHE WILL NEED TO WAIT UNTIL AFTER D/C. RECOVERY SUPPORT NURSE WILL BE MAKING APPT'S FOR PT W/CCC. HOME SELF-CARE W/CCC APPT'S FOR MED ASSISTED TX & [facility], FAMILY FOR TRANSPORT.
[2021-04-09] MEDS: Metoclopramide HCl 10 MG/2 ML VIAL 5 MG IVPUSH ×2 (14:56→21:51)
[2021-04-09 15:40] VITALS: BP 131/79; PULSE 84; RESP 14; TEMP 36.5; O2SAT 99
--- NOTE | 2021-04-09 17:53 | P.PNIM_ITS ---
Subjective Subjective Date of Service: 04/09/21 Interval History: c/o nausea no abd pain Physical Exam Vital Signs: Vital Signs: Last Vital Signs Temp 97.7 F 04/09/21 15:40 Pulse 84 04/09/21 15:40 Resp 14 04/09/21 15:40 BP 131/79 04/09/21 15:40 Pulse Ox 99 04/09/21 15:40 Body Mass Index 26.5 Gen: in no acute distress HEENT: sclera anicteric, somewhat dry mucus membranes Neck: supple Lungs: clear to auscultation bilaterally Heart: regular rate and rhythm, no murmurs Abd: soft, non-tender, non-distended Ext: no edema Skin: warm/well-perfused Neuro: alert and oriented x3, no focal findings Psych: restricted affect Objective Data Current Medications Generic Name Dose Route Start Last Admin Trade Name Freq PRN Reason Stop Dose Admin Acetaminophen 650 mg 04/08/21 23:22 04/09/21 13:36 Acetaminophen 325 Mg Tablet PO 650 mg Q6H PRN Administration Pain, Mild (Pain Scale 1-3) Docusate Sodium 100 mg 04/08/21 23:22 Docusate Sodium 100 Mg Capsule PO DAILY PRN Constipation Enoxaparin Sodium 40 mg 04/09/21 00:00 04/09/21 00:00 Enoxaparin Sodium 40 Mg/0.4 Ml Syringe SUBCUT Not Given Q24H [facility] Folic Acid 1 mg 04/09/21 09:00 04/09/21 08:23 Folic Acid 1 Mg Tablet PO 1 mg DAILY [facility] Administration Medication 1 each 04/08/21 21:00 No Benzodiazepines MISCELLANE DAILY [facility] Metoclopramide HCl 5 mg 04/09/21 14:46 04/09/21 14:56 Metoclopramide Hcl 10 Mg/2 Ml Vial IVPUSH 5 mg Q6H PRN Administration nausea/vomiting Ondansetron HCl 4 mg 04/08/21 23:22 04/09/21 08:24 Ondansetron Hcl 4 Mg/2 Ml Vial IVPUSH 4 mg Q8H PRN Administration Nausea and Vomiting Phenobarbital 45 mg 04/09/21 09:00 04/09/21 08:23 Phenobarbital 15 Mg Tablet PO 04/10/21 21:01 45 mg BID EDEN Administration Phenobarbital 15 mg 04/11/21 09:00 Phenobarbital 15 Mg Tablet PO 04/12/21 21:01 BID [facility] Phenobarbital 15 mg 04/13/21 09:00 Phenobarbital 15 Mg Tablet PO 04/14/21 09:01 DAILY [facility] Sodium Chloride 3 ml 04/09/21 00:00 04/09/21 14:59 0.9 % Sodium Chloride Flush 3 Ml Syringe IVFLUSH 3 ml QSHIFT [facility] Administration Thiamine HCl 100 mg 04/09/21 09:00 04/09/21 08:23 Thiamine Hcl 100 Mg Tablet PO 100 mg DAILY [facility] Administration Labs CBC & Chem 7: 04/09/21 06:09 04/09/21 06:09 Labs: Laboratory Results - last 24 hr 04/08/21 04/08/21 04/08/21 21:02 21:02 21:02 WBC 7.4 RBC 5.04 Hgb 13.7 Hct 40.9 MCV 81.2 MCH 27.2 MCHC 33.5 RDW 14.4 Plt Count 198 D MPV 9.6 Immature Gran % (Auto) 0.3 Neut % (Auto) 68.9 Lymph % (Auto) 25.4 [place] % (Auto) 5.0 Eos % (Auto) 0.0 Baso % (Auto) 0.4 Lymph # (Auto) 1.9 [place] # (Auto) 0.4 Eos # (Auto) 0.0 Baso # (Auto) 0.0 Abs Immat Gran (auto) 0.02 Absolute Neuts (auto) 5.1 Absolute Nucleated RBC 0.000 Nucleated RBC % (auto) 0.0 PT 12.2 INR 1.0 APTT 30.5 Sodium 142 Potassium 4.1 Chloride 104 Carbon Dioxide 26 Anion Gap 16 BUN 5 L Creatinine 0.63 Estim Creat Clear Calc 120.9 Estimated GFR > 60 Random Glucose 94 Calcium 8.8 Magnesium 1.9 Total Bilirubin 0.5 Direct Bilirubin 0.2 AST 40 H D ALT 16 Alkaline Phosphatase 89 D Ammonia Troponin I High Sens Total Protein 7.9 Albumin 4.4 Lipase 27 COVID-19 ([facility]) COVID-19 Clin Com 04/08/21 04/08/21 04/08/21 21:02 21:30 23:27 WBC RBC Hgb Hct MCV MCH MCHC RDW Plt Count MPV Immature Gran % (Auto) Neut % (Auto) Lymph % (Auto) [place] % (Auto) Eos % (Auto) Baso % (Auto) Lymph # (Auto) [place] # (Auto) Eos # (Auto) Baso # (Auto) Abs Immat Gran (auto) Absolute Neuts (auto) Absolute Nucleated RBC Nucleated RBC % (auto) PT INR APTT Sodium Potassium Chloride Carbon Dioxide Anion Gap BUN Creatinine Estim Creat Clear Calc Estimated GFR Random Glucose Calcium Magnesium Total Bilirubin Direct Bilirubin AST ALT Alkaline Phosphatase Ammonia 31 Troponin I High Sens < 3.5 Total Protein Albumin Lipase COVID-19 ([facility]) Negative COVID-19 Clin Com See Note 04/09/21 04/09/21 06:09 06:09 WBC 6.6 RBC 4.65 Hgb 12.5 Hct 38.4 MCV 82.6 MCH 26.9 L MCHC 32.6 RDW 14.6 Plt Count 144 L D MPV 9.6 Immature Gran % (Auto) 0.2 Neut % (Auto) 72.3 Lymph % (Auto) 21.3 [place] % (Auto) 5.4 Eos % (Auto) 0.3 Baso % (Auto) 0.5 Lymph # (Auto) 1.4 [place] # (Auto) 0.4 Eos # (Auto) 0.0 Baso # (Auto) 0.0 Abs Immat Gran (auto) 0.01 Absolute Neuts (auto) 4.8 Absolute Nucleated RBC 0.000 Nucleated RBC % (auto) 0.0 PT INR APTT Sodium 142 Potassium 3.8 Chloride 107 Carbon Dioxide 24 Anion Gap 15 BUN 6 L Creatinine 0.61 Estim Creat Clear Calc 124.9 Estimated GFR > 60 Random Glucose 78 Calcium 8.5 Magnesium Total Bilirubin Direct Bilirubin AST ALT Alkaline Phosphatase Ammonia Troponin I High Sens Total Protein Albumin Lipase COVID-19 ([facility]) COVID-19 Clin Com Assessment and Plan (1) Alcohol withdrawal delirium: Status: Acute Assessment and Plan: hospital d#2 30yo F with hx EtOH abuse, withdrawal with seizures presented with auditory + visual hallucinations after trying to stop drinking on her own # EtOH withdrawal delirium, high-risk for seizures - phenobarbital taper - folate/thiamine - counseling for sobriety # VTE ppx - LMWH
[2021-04-09] MEDS: Lactated Ringers 1,000 ML 100 ML IVCONT (18:22)
[2021-04-09 19:06] VITALS: BP 134/95; PULSE 87; RESP 14; TEMP 36.6; O2SAT 99
[2021-04-10] VITALS (7 sets, daily range): BP systolic 116–142; BP diastolic 82–98; PULSE 69–86; RESP 16–19; TEMP 35.6–36.6; O2SAT 98–100
[2021-04-10] MEDS: Enoxaparin Sodium 40 MG/0.4 ML SYRINGE SUBCUT (01:07)
[2021-04-10] MEDS: Lactated Ringers 1,000 ML 100 ML IVCONT ×2 (04:48→12:25)
[2021-04-10 07:52] LABS: Hematocrit 38.6 % (37-47); Hemoglobin 12.8 g/dl (12.0-16.0); Mean Corpuscular HGB Conc 33.2 g/dl (31.0-35.0); Mean Corpuscular Hemoglobin 26.8 pg (27.0-33.0); Mean Corpuscular Volume 80.9 fL (80-98); Mean Platelet Volume 10.1 fL (9.4-12.3); Platelet Count 123 X10*3/uL (160-400); Red Blood Count 4.77 X10*6/uL (4.20-5.50); Red Cell Distribution Width 13.7 % (11.0-16.0); White Blood Count 4.1 X10*3/uL (4.8-10.8)
[2021-04-10] MEDS: Thiamine HCL 100 MG TABLET PO (07:59)
[2021-04-10] MEDS: Folic Acid 1 MG TABLET PO (07:59)
[2021-04-10] MEDS: Acetaminophen 325 MG TABLET 650 MG PO (07:59)
[2021-04-10] MEDS: PHENobarbitaL 15 MG TABLET 45 MG PO ×2 (08:00→21:15)
[2021-04-10] MEDS: Metoclopramide HCl 10 MG/2 ML VIAL 5 MG IVPUSH ×2 (08:00→21:20)
[2021-04-10 08:16] LABS: Alanine Aminotransferase 14 U/L (0-31); Albumin Level 3.8 g/dL (3.5-5.0); Alkaline Phosphatase 86 U/L (39-117); Anion Gap 14 (12-20); Aspartate Amino Transferase 35 U/L (5-31); Bilirubin Total 1.2 mg/dL (0.0-1.0); Blood Urea Nitrogen 4 mg/dL (9-16); Calcium 8.9 mg/dL (8.4-10.2); Carbon Dioxide 28 mmol/L (22-29); Chloride 98 mmol/L (96-108); Creatinine Clr Calc Pharmacy 117.1; Estimated Glomerular Filt Rate > 60; Glucose Random 80 mg/dL (60-115); Magnesium 1.6 mg/dL (1.6-2.6); Potassium 3.8 mmol/L (3.3-5.1); Sodium 136 mmol/L (135-145); Total Protein 6.8 g/dL (6.5-8.0)
--- NOTE | 2021-04-10 14:58 | HO.PM.IMPN ---
Subjective Subjective Date of Service: 04/10/21 Interval History: Nausea improved Interested in naltrexone Physical Exam Vital Signs: Vital Signs: Last Vital Signs Temp 96.6 F L 04/10/21 08:00 Pulse 69 04/10/21 08:00 Resp 18 04/10/21 08:00 BP 132/98 H 04/10/21 12:00 Pulse Ox 98 04/10/21 08:00 Body Mass Index 26.5 Gen: in no acute distress Lungs: clear to auscultation bilaterally Heart: regular rate and rhythm, no murmurs Abd: soft, non-tender, non-distended Ext: no edema Skin: warm/well-perfused Neuro: alert and oriented x3, no focal findings Psych: appropriate affect Objective Data Current Medications Generic Name Dose Route Start Last Admin Trade Name Freq PRN Reason Stop Dose Admin Acetaminophen 650 mg 04/08/21 23:22 04/10/21 07:59 Acetaminophen 325 Mg Tablet PO 650 mg Q6H PRN Administration Pain, Mild (Pain Scale 1-3) Docusate Sodium 100 mg 04/08/21 23:22 Docusate Sodium 100 Mg Capsule PO DAILY PRN Constipation Enoxaparin Sodium 40 mg 04/09/21 00:00 04/10/21 01:07 Enoxaparin Sodium 40 Mg/0.4 Ml Syringe SUBCUT 40 mg Q24H EDEN Administration Folic Acid 1 mg 04/09/21 09:00 04/10/21 07:59 Folic Acid 1 Mg Tablet PO 1 mg DAILY EDEN Administration Lactated Ringer's 1,000 mls @ 100 mls/hr 04/09/21 18:00 04/10/21 13:11 Lr IVCONT Not Given .Q10H EDEN Medication 1 each 04/08/21 21:00 No Benzodiazepines MISCELLANE DAILY EDEN Metoclopramide HCl 5 mg 04/09/21 14:46 04/10/21 08:00 Metoclopramide Hcl 10 Mg/2 Ml Vial IVPUSH 5 mg Q6H PRN Administration nausea/vomiting Ondansetron HCl 4 mg 04/08/21 23:22 04/09/21 19:55 Ondansetron Hcl 4 Mg/2 Ml Vial IVPUSH 4 mg Q8H PRN Administration Nausea and Vomiting Phenobarbital 45 mg 04/09/21 09:00 04/10/21 08:00 Phenobarbital 15 Mg Tablet PO 04/10/21 21:01 45 mg BID EDEN Administration Phenobarbital 15 mg 04/11/21 09:00 Phenobarbital 15 Mg Tablet PO 04/12/21 21:01 BID EDEN Phenobarbital 15 mg 04/13/21 09:00 Phenobarbital 15 Mg Tablet PO 04/14/21 09:01 DAILY EDEN Sodium Chloride 3 ml 04/09/21 00:00 04/10/21 07:13 0.9 % Sodium Chloride Flush 3 Ml Syringe IVFLUSH Not Given QSHIFT EDEN Thiamine HCl 100 mg 04/09/21 09:00 04/10/21 07:59 Thiamine Hcl 100 Mg Tablet PO 100 mg DAILY EDEN Administration Labs CBC & Chem 7: 04/10/21 07:15 04/10/21 07:15 Labs: Laboratory Results - last 24 hr 04/10/21 04/10/21 07:15 07:15 WBC 4.1 L RBC 4.77 Hgb 12.8 Hct 38.6 MCV 80.9 MCH 26.8 L MCHC 33.2 RDW 13.7 Plt Count 123 L MPV 10.1 Absolute Nucleated RBC 0.000 Nucleated RBC % (auto) 0.0 Sodium 136 Potassium 3.8 Chloride 98 Carbon Dioxide 28 Anion Gap 14 BUN 4 L Creatinine 0.65 Estim Creat Clear Calc 117.1 Estimated GFR > 60 Random Glucose 80 Calcium 8.9 Magnesium 1.6 Total Bilirubin 1.2 H AST 35 H ALT 14 Alkaline Phosphatase 86 Total Protein 6.8 Albumin 3.8 Assessment and Plan (1) Alcohol withdrawal delirium: Status: Acute Assessment and Plan: hospital d#3 30yo F with hx EtOH abuse, withdrawal with seizures presented with auditory + visual hallucinations after trying to stop drinking on her own # EtOH withdrawal delirium, high-risk for seizures - continue phenobarbital taper - folate/thiamine - counseling for sobriety # alcohol use disorder - naltrexone upon discharge, already has follow-up appointment with [facility] # VTE ppx - LMWH
[2021-04-10] MEDS: diphenhydrAMINE HCL 50 MG/ML VIAL 25 MG IVPUSH (21:18)
[2021-04-10] MEDS: hydrOXYzine HCL 25 MG TABLET PO (21:29)
[2021-04-10] MEDS: Zolpidem Tartrate 5 MG TABLET PO (22:42)
[2021-04-11] MEDS: Enoxaparin Sodium 40 MG/0.4 ML SYRINGE SUBCUT (00:43)
[2021-04-11 03:30] VITALS: BP 118/77; PULSE 80; TEMP 36.4; O2SAT 99
[2021-04-11 07:04] VITALS: BP 131/88; PULSE 100; RESP 18; TEMP 36.1; O2SAT 100
[2021-04-11] MEDS: Metoclopramide HCl 10 MG/2 ML VIAL 5 MG IVPUSH (08:23)
[2021-04-11] MEDS: Folic Acid 1 MG TABLET PO (08:23)
[2021-04-11] MEDS: 0.9 % Sodium Chloride Flush 3 ML SYRINGE IVFLUSH (08:23)
[2021-04-11] MEDS: PHENobarbitaL 15 MG TABLET PO (08:23)
[2021-04-11] MEDS: Thiamine HCL 100 MG TABLET PO (08:23)
[2021-04-11] MEDS: Acetaminophen 325 MG TABLET 650 MG PO (08:27)
--- NOTE | 2021-04-11 10:31 | PM.DS ---
DS: Providers Provider Date of Service: 04/11/21 Date of admission: 04/08/21 22:58 Primary care physician: Mike Franks MD Consults: 04/08/21 23:22 Consult to Care Team Routine Comment: Reason for consultation: alcohol detox DS: Diagnosis Discharge Diagnosis (1) Alcohol withdrawal delirium: Status: Acute (2) Alcohol use disorder: Status: Acute (3) Transaminasemia: Status: Acute DS: Medications Discharge Medications Home Medications: Previous Rx's Medication Instructions Recorded naltrexone 50 mg PO DAILY #30 tab 04/11/21 DS: Summary Hospital Course Hospital Course: From admission history and physical by hospitalist Etta Noel, 04/08/21: This is a 30-year-old female with past medical history of alcohol abuse who presents to the hospital with complaints of alcohol withdrawal. Patient reports that she was trying to detox on her own and slowly was cutting down her alcohol use last drink was this a.m. at around 8 when she started developing hallucinations both auditory and visual. Therefore decided to come to the hospital as she has history of withdrawals seizures. Patient reports that she has also been not eating or drinking well, her memory is affected 2 to her alcohol abuse, denies any chest pain, no shortness of breath, no abdominal pain nausea or vomiting, urinary symptoms and no lower extremity edema. No headache or change in vision. On arrival to the ED patient's vital significant for temperature of 98.2?, heart rate of 101, respiratory rate of 14, satting 98% on room air with blood pressure of 111/77 Labs are significant for WBC count of 7.4 hemoglobin of 13.7, AST of 40, ammonia 35, COVID-19 negative, otherwise unremarkable Chest x-ray negative The patient was admitted to the medical-surgical floor for high risk alcohol withdrawal and treated with phenobarbital taper. She did not have any withdrawal seizures. She met with her addiction medicine specialist and expressed interest in treatment with naltrexone to decrease cravings for alcohol. She was discharged on naltrexone in the importance of sobriety was counseled. She will follow up with primary care doctor in 1 week along with [facility]. She should have repeat liver function tests in 1 week. Time Spent with Patient Time attestation: Total time spent providing and/or coordinating discharge services: 35 Discharge coordination time: Greater than 30 minutes Quality: Stroke Does the patient have a stroke diagnosis?: No Physical Exam Vital Signs: Vital Signs: Last Vital Signs Temp 97 F 04/11/21 07:04 Pulse 100 04/11/21 07:04 Resp 18 04/11/21 07:04 BP 131/88 04/11/21 07:04 Pulse Ox 100 04/11/21 07:04 Body Mass Index 26.5 Gen: in no acute distress HEENT: sclera anicteric, moist mucus membranes Neck: supple Lungs: clear to auscultation bilaterally Heart: regular rate and rhythm, no murmurs Abd: soft, non-tender, non-distended Ext: no edema Skin: warm/well-perfused Neuro: alert and oriented x3, no focal findings Psych: appropriate affect DS: Data Data Completed and Pending Completed studies during hospitalization [Text1]: Laboratory Results WBC 4.1 X10*3/uL (4.8-10.8) L 04/10/21 07:15 RBC 4.77 X10*6/uL (4.20-5.50) 04/10/21 07:15 Hgb 12.8 g/dl (12.0-16.0) 04/10/21 07:15 Hct 38.6 % (37-47) 04/10/21 07:15 MCV 80.9 fL (80-98) 04/10/21 07:15 MCH 26.8 pg (27.0-33.0) L 04/10/21 07:15 MCHC 33.2 g/dl (31.0-35.0) 04/10/21 07:15 RDW 13.7 % (11.0-16.0) 04/10/21 07:15 Plt Count 123 X10*3/uL (160-400) L 04/10/21 07:15 MPV 10.1 fL (9.4-12.3) 04/10/21 07:15 Immature Gran % (Auto) 0.2 % (0.0-0.4) 04/09/21 06:09 Neut % (Auto) 72.3 % (45-73) 04/09/21 06:09 Lymph % (Auto) 21.3 % (20-40) 04/09/21 06:09 [place] % (Auto) 5.4 % (2-11) 04/09/21 06:09 Eos % (Auto) 0.3 % (0-4) 04/09/21 06:09 Baso % (Auto) 0.5 % (0-2) 04/09/21 06:09 Lymph # (Auto) 1.4 X10*3/uL (1.2-4.9) 04/09/21 06:09 [place] # (Auto) 0.4 X10*3/uL (0.1-1.2) 04/09/21 06:09 Eos # (Auto) 0.0 X10*3/uL (0.0-0.4) 04/09/21 06:09 Baso # (Auto) 0.0 X10*3/uL (0.0-0.2) 04/09/21 06:09 Abs Immat Gran (auto) 0.01 X10*3/uL (0.00-0.03) 04/09/21 06:09 Absolute Neuts (auto) 4.8 X10*3/uL (2.0-8.3) 04/09/21 06:09 Absolute Nucleated RBC 0.000 X10*3/uL (0.0-0.012) 04/10/21 07:15 Nucleated RBC % (auto) 0.0 /100WBC (0.0-0.2) 04/10/21 07:15 PT 12.2 SEC (10.8-13.0) 04/08/21 21:02 INR 1.0 (0.9-1.1) 04/08/21 21:02 APTT 30.5 SEC (24.1-38.0) 04/08/21 21:02 Sodium 136 mmol/L (135-145) 04/10/21 07:15 Potassium 3.8 mmol/L (3.3-5.1) 04/10/21 07:15 Chloride 98 mmol/L (96-108) 04/10/21 07:15 Carbon Dioxide 28 mmol/L (22-29) 04/10/21 07:15 Anion Gap 14 (12-20) 04/10/21 07:15 BUN 4 mg/dL (9-16) L 04/10/21 07:15 Creatinine 0.65 mg/dL (0.5-1.4) 04/10/21 07:15 Estim Creat Clear Calc 117.1 05/22/21 07:15 Estimated GFR > 60 04/10/21 07:15 Random Glucose 80 mg/dL (60-115) 04/10/21 07:15 Calcium 8.9 mg/dL (8.4-10.2) 04/10/21 07:15 Magnesium 1.6 mg/dL (1.6-2.6) 04/10/21 07:15 Total Bilirubin 1.2 mg/dL (0.0-1.0) H 04/10/21 07:15 Direct Bilirubin 0.2 mg/dL (0.0-0.5) 04/08/21 21:02 AST 35 U/L (5-31) H 04/10/21 07:15 ALT 14 U/L (0-31) 04/10/21 07:15 Alkaline Phosphatase 86 U/L (39-117) 04/10/21 07:15 Ammonia 31 umol/L (13-55) 04/08/21 21:30 Troponin I High Sens < 3.5 ng/L (<3.5-17.0) 04/08/21 21:02 Total Protein 6.8 g/dL (6.5-8.0) 04/10/21 07:15 Albumin 3.8 g/dL (3.5-5.0) 04/10/21 07:15 Lipase 27 U/L (8-78) 04/08/21 21:02 COVID-19 ([facility]) Negative (Negative) 04/08/21 23:27 COVID-19 Clin Com See Note 04/08/21 23:27 Impressions Chest X-Ray 04/08/21 21:29 IMPRESSION: Unremarkable chest examination. Discharge Plan Discharge Patient Disposition: Home, Self-Care Discharge Diagnosis: Alcohol withdrawal, alcohol use disorder Referrals: Mike Franks MD [Primary Care Provider] - 1 Week Jen George CNP [Nurse Practitioner] - 1 Week Discharge Medications: New naltrexone 50 mg tablet 50 mg PO DAILY Qty: 30 RF: 0 Discharge Orders: Discharge Order (Routine); Ordered 04/11/21 Ordered By: Tonny Piedra Diet: advance to usual diet Activity on Discharge: no alcohol Stand Alone Forms: Patient Portal Discharge page Other Ambulatory Orders: Liver Panel (Routine) Timeframe: 1 Week Facility: [facility] - Location: Laboratory Ordered By: Tonny Piedra Care Plan Goals: sobriety Health Concerns: Alcohol use disorder, alcohol withdrawal Plan of Treatment: Take naltrexone 50 mg daily Follow up within 1 week with your primary care doctor and also with Jen George NP from the [facility]: [address], [address] [place], [place] [id number] Assessment: as above Patient Instructions: Alcohol Use Disorder (DC)
--- NOTE | 2021-04-11 13:03 | MHC.CM.PN ---
electronic mediocal record reviewed along with case discuseed with mariza arriaga , patient discharged home today DISCHARGE PLAN HOME NO SERVICES HAS FOLLOW UP APPOINTMENT S WITH [facility] FOR MEDICATION MANAGEMENT TO STARTED ON PO NALTREXONE WHILE INPATIENT AND WILL CONTINUE WHEN DISCHARGED TRANS[[facility] FAMILY RECOVER SUPPORT NURSE TO FOLLOW
== END 2021-04-11 11:43 | disposition home or self-care (01) | DRG 775 ==
LOC: HO.ED 21:22 → HO.EDOVER 23:15 → HO.S3 04-09 07:04
PROVIDERS: Nurse Practitioner Family; Admitting Provider Internal Medicine; Emergency Provider Internal Medicine; PCP Internal Medicine; Visit Provider Family Medicine
DX: F10.131 Alcohol abuse with withdrawal delirium (principal); R74.01 Elevation of levels of liver transaminase levels; Z20.822 Contact with and (suspected) exposure to COVID-19
CPT/HCPCS: 36415; 71045; 80048; 80053; 80076; 82140; 83690; 83735; 84484; 85025; 85027; 85610; 85730; 87635; 93005; 96372; 99285; 99291; J1200; J1650; J2405; J2560; J2765

== ENCOUNTER 2021-04-20 16:08 | Outpatient (REF) | payer OTHER, SELFPAY ==
[2021-04-20 18:01] LABS: Alanine Aminotransferase 17 U/L (0-31); Albumin Level 4.3 g/dL (3.5-5.0); Alkaline Phosphatase 61 U/L (39-117); Aspartate Amino Transferase 30 U/L (5-31); Bilirubin Direct 0.2 mg/dL (0.0-0.5); Bilirubin Total 0.4 mg/dL (0.0-1.0)
== END 2021-04-20 16:09 | disposition home or self-care (01) ==
LOC: HO.LAB 16:08
PROVIDERS: PCP Internal Medicine; Visit Provider Family Medicine
DX: Z72.89 Other problems related to lifestyle (principal)
CPT/HCPCS: 36415; 80076

== ENCOUNTER 2021-05-18 22:52 | Emergency (ER) | payer OTHER, SELFPAY ==
[2021-05-18 22:53] VITALS: BP 137/96; PULSE 123; RESP 18; TEMP 36.7; O2SAT 99; BMI 26.2
--- NOTE | 2021-05-19 00:19 | ED_ITS ---
HPI - General Adult General Chief complaint: General Medical Stated complaint: vomitting Time Seen by Provider: 05/19/21 00:19 Source: patient and family Mode of arrival: ambulatory Limitations: no limitations History of Present Illness HPI narrative: patient alcoholic been drinking heavily lately but for last 1 be ing week has decreased alcohol intake initially she said she did not drink alcohol for last 4 days , after requestioning she said she has decreased the amount of alcohol but she had drink today patient feels that she is in withdrawal seeing spider , visual hallucinations , nauseated and vomiting also has chronic epigastric pain. Patient requesting for detox, been to detox last year and was sober for only for few months Related Data Previous Rx's Medication Instructions Recorded naltrexone 50 mg PO DAILY #30 tab 04/11/21 chlordiazepoxide HCl 50 mg PO Q4H PRN #12 cap 05/19/21 Allergies Allergy/AdvReac Type Severity Reaction Status Date / Time No Known Allergies Allergy Verified 05/18/21 22:53 [No Known Allergies*] Review of Systems Review of Systems: Constitutional : No Weight loss, No Fever, No Chills ENT/Mouth : No sore throat, No Rhinorrhea Eyes: No Eye Pain, No Swelling Cardiovascular : No Chest Pain, no palpitations Respiratory : No Cough, No Sputum, no shortness of breath Gastrointestinal : +Nausea, + Vomiting, No Diarrhea, + abdominal Pain, no black stools Genitourinary : No Dysuria, No Urinary Frequency Musculoskeletal : No joint pain, No Myalgias, No Joint Swelling Skin : No Skin Lesions, No rash Neuro : No Weakness, No Numbness, No Dizziness, No Headache Psych : No Anxiety/Panic, No Depression, visual hallucinations+ Heme/Lymph: No Bruising, No Lymphadenopathy Endocrine : No Polyuria, No Polydipsia All other systems reviewed and are negative PMF Past Medical History Medical History Alcohol abuse with withdrawal delirium Alcohol use disorder Alcohol withdrawal delirium Alcohol withdrawal seizure Alcoholism Anxiety Depression Family History Family History Brother Substance abuse Social History Social History Household Members: Family Housing: House Do you presently have visiting nurse or other home services: No Alcohol intake: current Alcohol intake frequency: 3 or more drinks per day Alcohol type: beer Substance Use Type: Marijuana Advance Directives: No Advance Directives Information Provided: No Patient : No service: No Current occupational status: unemployed Physical Exam Vital Signs: Vital Signs: Last Vital Signs Temp 98.0 F 05/18/21 22:53 Pulse 96 05/19/21 01:45 Resp 16 05/19/21 01:45 BP 116/84 05/19/21 01:45 Pulse Ox 98 05/19/21 01:45 Body Mass Index 26.2 Appearance: Alert. Oriented X3. No acute distress. anxious ETOH++ Eyes: PERRLA, No Nystagmus ENT: Pharynx normal. Oral Mucosa dry+ Neck: Normal inspection. Neck supple. CVS: Normal heart rate and rhythm. Pulses normal. Respiratory: No respiratory distress. Equal air entry bilateral, no wheezing/rales/rhonchi Abdomen: Soft and nontender. Bowel sounds are present, no mass palpable, no CVA tenderness Skin: Skin warm and dry. Normal skin color. Normal skin turgor. Extremities: No lower extremity edema. No calf tenderness Neuro: Oriented X 3. No motor deficit. No sensory deficit.No cerebellar signs , cranial nerves II-XII intact psych: denies any hallucinations at this time feels anxious no suicidal ideation or depression Medical Decision Making MDM Narrative Medical decision making narrative: patient alcoholic with alcohol level of 378 says she is hallucinating but sleeping in the ER likely from anxiety not from withdrawal patient wants to go to detox will give her the list to call detox places in the morning CIWA score is only 4 at this time Lab Data Lab results reviewed: Yes I reviewed the patient's lab results. Result diagrams: 05/19/21 00:29 05/19/21 00:29 Labs: Lab Results 05/19/21 05/19/21 05/19/21 Range/Units 00: 00:29 00:29 WBC 7.8 (4.8-10.8) X10*3/uL RBC 5.63 H (4.20-5.50) X10*6/uL Hgb 15.2 (12.0-16.0) g/dl Hct 45.6 (37-47) % MCV 81.0 (80-98) fL MCH 27.0 (27.0-33.0) pg MCHC 33.3 (31.0-35.0) g/dl RDW 14.7 (11.0-16.0) % Plt Count 282 D (160-400) X10*3/uL MPV 10.1 (9.4-12.3) fL Immature Gran % (Auto) 0.1 (0.0-0.4) % Neut % (Auto) 53.1 (45-73) % Lymph % (Auto) 40.8 H (20-40) % [place] % (Auto) 5.2 (2-11) % Eos % (Auto) 0.3 (0-4) % Baso % (Auto) 0.5 (0-2) % Lymph # (Auto) 3.2 (1.2-4.9) X10*3/uL [place] # (Auto) 0.4 (0.1-1.2) X10*3/uL Eos # (Auto) 0.0 (0.0-0.4) X10*3/uL Baso # (Auto) 0.0 (0.0-0.2) X10*3/uL Abs Immat Gran (auto) 0.01 (0.00-0.03) X10*3/uL Absolute Neuts (auto) 4.2 (2.0-8.3) X10*3/uL Absolute Nucleated RBC 0.000 (0.0-0.012) X10*3/uL Nucleated RBC % (auto) 0.0 (0.0-0.2) /100WBC Sodium 141 (135-145) mmol/L Potassium 4.3 (3.3-5.1) mmol/L Chloride 101 (96-108) mmol/L Carbon Dioxide 28 (22-29) mmol/L Anion Gap 16 (12-20) BUN 6 L (9-16) mg/dL Creatinine 0.68 (0.5-1.4) mg/dL Estim Creat Clear Calc 111.3 Estimated GFR > 60 Random Glucose 98 (60-115) mg/dL Calcium 9.4 (8.4-10.2) mg/dL Magnesium 2.0 (1.6-2.6) mg/dL Total Bilirubin 0.6 (0.0-1.0) mg/dL AST 44 H D (5-31) U/L ALT 18 (0-31) U/L Alkaline Phosphatase 86 D (39-117) U/L Total Protein 8.5 H D (6.5-8.0) g/dL Albumin 4.8 (3.5-5.0) g/dL Lipase 38 (8-78) U/L Urine Color Urine Appearance Urine pH (5.0-8.0) Ur Specific [place] (1.005-1.025) Urine Protein (NEG-TRACE) MG/DL Urine Glucose (UA) (NEG) MG/DL Urine Ketones (NEG) MG/DL Urine Blood (NEG) Urine Nitrite (NEG) Ur Leukocyte Esterase (NEG) Urine Test (NEGATIVE) Ethyl Alcohol 378 H* mg/dL 05/19/21 05/19/21 Range/Units 01:55 01:55 WBC (4.8-10.8) X10*3/uL RBC (4.20-5.50) X10*6/uL Hgb (12.0-16.0) g/dl Hct (37-47) % MCV (80-98) fL MCH (27.0-33.0) pg MCHC (31.0-35.0) g/dl RDW (11.0-16.0) % Plt Count (160-400) X10*3/uL MPV (9.4-12.3) fL Immature Gran % (Auto) (0.0-0.4) % Neut % (Auto) (45-73) % Lymph % (Auto) (20-40) % [place] % (Auto) (2-11) % Eos % (Auto) (0-4) % Baso % (Auto) (0-2) % Lymph # (Auto) (1.2-4.9) X10*3/uL [place] # (Auto) (0.1-1.2) X10*3/uL Eos # (Auto) (0.0-0.4) X10*3/uL Baso # (Auto) (0.0-0.2) X10*3/uL Abs Immat Gran (auto) (0.00-0.03) X10*3/uL Absolute Neuts (auto) (2.0-8.3) X10*3/uL Absolute Nucleated RBC (0.0-0.012) X10*3/uL Nucleated RBC % (auto) (0.0-0.2) /100WBC Sodium (135-145) mmol/L Potassium (3.3-5.1) mmol/L Chloride (96-108) mmol/L Carbon Dioxide (22-29) mmol/L Anion Gap (12-20) BUN (9-16) mg/dL Creatinine (0.5-1.4) mg/dL Estim Creat Clear Calc Estimated GFR Random Glucose (60-115) mg/dL Calcium (8.4-10.2) mg/dL Magnesium (1.6-2.6) mg/dL Total Bilirubin (0.0-1.0) mg/dL AST (5-31) U/L ALT (0-31) U/L Alkaline Phosphatase (39-117) U/L Total Protein (6.5-8.0) g/dL Albumin (3.5-5.0) g/dL Lipase (8-78) U/L Urine Color YELLOW Urine Appearance CLEAR Urine pH 6.5 (5.0-8.0) Ur Specific [place] <= 1.005 (1.005-1.025) Urine Protein NEG (NEG-TRACE) MG/DL Urine Glucose (UA) NEG (NEG) MG/DL Urine Ketones NEG (NEG) MG/DL Urine Blood NEG (NEG) Urine Nitrite NEG (NEG) Ur Leukocyte Esterase NEG (NEG) Urine Test NEGATIVE (NEGATIVE) Ethyl Alcohol mg/dL Discharge Plan Discharge Clinical Impression: Alcohol use disorder Patient Disposition: Home, Self-Care Instructions: Alcohol Use Disorder (ED) Additional Instructions: stop drinking alcohol. Librium for alcohol withdrawal Follow up with detox Prescriptions: New chlordiazepoxide HCl 25 mg capsule 50 mg PO Q4H PRN (Reason: alcohol withdrawal) Qty: 12 RF: 0 No Action naltrexone 50 mg tablet 50 mg PO DAILY Qty: 30 RF: 0
[2021-05-19] MEDS: 0.9 % Sodium Chloride 1,000 ML 999 ML IVCONT (00:47)
[2021-05-19] MEDS: LORazepam 2 MG/ML VIAL IVPUSH (00:49)
[2021-05-19] MEDS: ondansetron HCL 4 MG/2 ML VIAL IVPUSH (00:49)
[2021-05-19 00:50] VITALS: BP 120/81; PULSE 97; RESP 16; O2SAT 98
[2021-05-19 00:53] LABS: MANUAL DIFF FLAG NO
[2021-05-19 00:56] LABS: Basophils Percent Auto 0.5 % (0-2); Eosinophils Percent Auto 0.3 % (0-4); Hematocrit 45.6 % (37-47); Hemoglobin 15.2 g/dl (12.0-16.0); Imm Gran Abs Auto 0.01 X10*3/uL (0.00-0.03); Imm Gran Pct Auto 0.1 % (0.0-0.4); Lymphocytes Absolute Auto 3.2 X10*3/uL (1.2-4.9); Lymphocytes Percent Auto 40.8 % (20-40); Mean Corpuscular HGB Conc 33.3 g/dl (31.0-35.0); Mean Platelet Volume 10.1 fL (9.4-12.3); Monocytes Absolute Auto 0.4 X10*3/uL (0.1-1.2); Monocytes Percent Auto 5.2 % (2-11); Neutrophils Absolute Auto 4.2 X10*3/uL (2.0-8.3); Neutrophils Percent Auto 53.1 % (45-73); Platelet Count 282 X10*3/uL (160-400); Red Blood Count 5.63 X10*6/uL (4.20-5.50); Red Cell Distribution Width 14.7 % (11.0-16.0); White Blood Count 7.8 X10*3/uL (4.8-10.8)
[2021-05-19 01:20] LABS: Alanine Aminotransferase 18 U/L (0-31); Albumin Level 4.8 g/dL (3.5-5.0); Alkaline Phosphatase 86 U/L (39-117); Anion Gap 16 (12-20); Aspartate Amino Transferase 44 U/L (5-31); Bilirubin Total 0.6 mg/dL (0.0-1.0); Blood Urea Nitrogen 6 mg/dL (9-16); Calcium 9.4 mg/dL (8.4-10.2); Carbon Dioxide 28 mmol/L (22-29); Chloride 101 mmol/L (96-108); Creatinine Clr Calc Pharmacy 111.3; Estimated Glomerular Filt Rate > 60; Glucose Random 98 mg/dL (60-115); Lipase 38 U/L (8-78); Potassium 4.3 mmol/L (3.3-5.1); Sodium 141 mmol/L (135-145); Total Protein 8.5 g/dL (6.5-8.0)
--- NOTE | 2021-05-19 01:22 | PC.NURSE ---
IN ROOM FOR EVAL. HL PLACED TO LAC, LABS DRAWN TO LAB, NS UP AND RUNNING W/O DIFFICULTY, SITE INTACT. PT MEDICATED PER EMAR FOR ANXIETY. PT HAS SHAKING EPISODES WHEN FEELING ANXIOUS. PT DOES NOT SHAKE UNLESS WITNESSING BLOOD. WHEN CONVERSING WITH MOTHER AT BEDSIDE PT IS NOT SHAKY. SKIN WARM, DRY. RESPIRATIONS EASY, N/L. WILL CONTINUE TO MONITOR PT.
[2021-05-19 01:26] LABS: Ethanol 378 mg/dL
[2021-05-19 01:45] VITALS: BP 116/84; PULSE 96; RESP 16; O2SAT 98
[2021-05-19 02:02] LABS: Glucose Urine UA NEG (NEG); Leukocyte Esterase Urine NEG (NEG); Nitrite Urine NEG (NEG); PH 6.5 (5.0-8.0); Specific Gravity - Urine <= 1.005 (1.005-1.025); Urine Blood NEG (NEG); Urine Ketones NEG (NEG); Urine Protein NEG (NEG-TRACE)
[2021-05-19 02:03] LABS: Appearance Urine CLEAR; Color Urine YELLOW
[2021-05-19 02:05] LABS: UPreg QC Valid YES; Urine Pregnancy NEGATIVE (NEGATIVE)
--- NOTE | 2021-05-19 02:58 | PC.NURSE ---
CIWA SCALE- 4 DR RIVERA AWARE. PT DENIES ANY COMPLAINTS. RESPIRATIONS EASY, N/L. SKIN W/D. WILL CONTINUE TO MONITOR PT.
--- NOTE | 2021-05-19 03:04 | PC.NURSE ---
PT SLEEPING, WAKES TO VOICE. SKIN W/D, RESPIRATIONS N/L. PT REQUESTING DETOX. WILL CONTINUE TO MONITOR PT.
--- NOTE | 2021-05-19 05:37 | PC.NURSE ---
IV REMOVED INTACT. PT GIVEN DETOX NUMBERS TO CALL IN THE AM. PT CALLING PARENTS FOR A RIDE HOME. PT GETTING DRESSED.
== END 2021-05-19 05:55 | disposition home or self-care (01) ==
PROVIDERS: Emergency Provider Internal Medicine; PCP Internal Medicine
DX: F10.20 Alcohol dependence, uncomplicated (principal); Y90.8 Blood alcohol level of 240 mg/100 ml or more
CPT/HCPCS: 36415; 80053; 81003; 81025; 82077; 83690; 83735; 85025; 96361; 96374; 96375; 99284; J2060; J2405

== ENCOUNTER 2021-06-27 19:10 | Inpatient (IN) | payer OTHER, SELFPAY ==
--- NOTE | 2021-06-27 | ECG_ITS ---
Test Reason : OVERDOSE Blood Pressure : / mmHG Vent. Rate : 110 BPM Atrial Rate : 110 BPM P-R Int : 156 ms QRS Dur : 086 ms QT Int : 372 ms P-R-T Axes : 061 -43 036 degrees QTc Int : 503 ms Sinus tachycardia Possible Left atrial enlargement Left axis deviation Abnormal ECG When compared with ECG of 08-APR-2021 18:33, No significant changes seen Referred By: Generic ED Physician Electronically Signed By:CARLOS SEGAL MD
[2021-06-27 19:28] VITALS: BP 132/92; PULSE 110; RESP 16; TEMP 36.6; O2SAT 99; BMI 29.2
--- NOTE | 2021-06-27 19:45 | PC.NURSE ---
PT TO ROOM, CHG INTO GOWN AND ON MONITOR WITH HR 91. PT IN NAD AND SPEAKING IN FULL CLEAR SENTENCES, RESP EASY N/L. SKIN W/D. BELONGING REMOVED FROM PT. PT DENIES COMPLAINTS AND RESTING IN STRETCHER. PT IN CLOSE OBS AT THIS TIME. HL #18 TO LEFT HAND.
[2021-06-27 20:35] LABS: Glucose Urine UA NEG (NEG); Leukocyte Esterase Urine NEG (NEG); Nitrite Urine NEG (NEG); PH 6.5 (5.0-8.0); Urine Blood NEG (NEG); Urine Ketones NEG (NEG); Urine Protein TRACE MG/DL (NEG-TRACE)
[2021-06-27 20:37] LABS: UPreg QC Valid YES; Urine Pregnancy NEGATIVE (NEGATIVE)
[2021-06-27 20:38] LABS: MANUAL DIFF FLAG NO
[2021-06-27 20:39] LABS: Appearance Urine CLEAR; Color Urine YELLOW
[2021-06-27 20:41] LABS: Basophils Absolute Auto 0.1 X10*3/uL (0.0-0.2); Eosinophils Percent Auto 0.1 % (0-4); Hematocrit 43.9 % (37-47); Hemoglobin 14.7 g/dl (12.0-16.0); Imm Gran Abs Auto 0.01 X10*3/uL (0.00-0.03); Imm Gran Pct Auto 0.1 % (0.0-0.4); Lymphocytes Absolute Auto 2.9 X10*3/uL (1.2-4.9); Lymphocytes Percent Auto 41.4 % (20-40); Mean Corpuscular HGB Conc 33.5 g/dl (31.0-35.0); Mean Corpuscular Hemoglobin 26.9 pg (27.0-33.0); Mean Corpuscular Volume 80.4 fL (80-98); Mean Platelet Volume 9.2 fL (9.4-12.3); Monocytes Absolute Auto 0.4 X10*3/uL (0.1-1.2); Neutrophils Absolute Auto 3.6 X10*3/uL (2.0-8.3); Neutrophils Percent Auto 52.4 % (45-73); Platelet Count 298 X10*3/uL (160-400); Red Blood Count 5.46 X10*6/uL (4.20-5.50); Red Cell Distribution Width 14.4 % (11.0-16.0)
[2021-06-27 20:45] LABS: Amorphous Sediment Urine TRACE /LPF; Bacteria Urine TRACE /LPF; RBC Urine 0-2 /HPF (0); Squamous Epithelial Cell Urine 1+ /LPF; WBC Urine 0-2 /HPF (0-4)
[2021-06-27] MEDS: 0.9 % Sodium Chloride 1,000 ML 999 ML IV (20:47)
[2021-06-27 20:49] LABS: Prothrombin Time 11.2 SEC (9.9-13.0)
--- NOTE | 2021-06-27 20:51 | PC.NURSE ---
LABS DRAWN TO LAB. PT UP TO COMMODE AT BEDSIDE FOR URINE SAMPLE.
[2021-06-27 20:52] LABS: Partial Thromboplastin Time 34.2 SEC (24.1-38.0)
--- NOTE | 2021-06-27 20:58 | ED_ITS ---
HPI - Overdose General Chief Complaint: Overdose Stated Complaint: od Time Seen by Provider: 06/27/21 20:19 Source: patient and EMS Mode of arrival: EMS Limitations: altered mental status History of Present Illness complaint: intentional overdose Onset (ago): hour(s) (1 PM today) Intent: suicide attempt Context: Intentional Overdose: other (depressed for a while) Associated symptoms: depression Treatments Prior to Arrival: none Related Data Previous Rx's Medication Instructions Recorded naltrexone 50 mg tablet 50 mg PO DAILY #30 tab 04/11/21 chlordiazepoxide HCl 25 mg capsule 50 mg PO Q4H PRN #12 cap 05/19/21 Allergies Allergy/AdvReac Type Severity Reaction Status Date / Time No Known Allergies Allergy Verified 05/18/21 22:53 [No Known Allergies*] Review of Systems Review of Systems: Constitutional : No Fever, No Chills ENT/Mouth : No Ear Pain, No Nasal Congestion, No sore throat Eyes: No Eye Pain, No Swelling, No Redness Cardiovascular : No Chest Pain, No SOB Respiratory : No Cough, No Sputum, No Dyspnea Gastrointestinal : No Nausea, No Vomiting, No Diarrhea, No Hematochezia, No Melena Genitourinary : No Dysuria, No Urinary Frequency, No Hematuria Musculoskeletal : No Myalgias Skin : No Skin Lesions, No rash Neuro : No Weakness, No Numbness, No Paresthesias, No Dizziness, No Headache Psych : positive Anxiety, positive Depression, positive SI no HI Heme/Lymph: No Lymphadenopathy Endocrine : No Polyuria, No Polydipsia All other systems reviewed and are negative [facility] Past Medical History Attestation statement: The following information was validated with the patient. Medical History Alcohol abuse with withdrawal delirium Alcohol use disorder Alcohol withdrawal delirium Alcohol withdrawal seizure Alcoholism Anxiety Depression Family History Family History Brother Substance abuse Social History Social History Household Members: Family Housing: House Do you presently have visiting nurse or other home services: No Alcohol intake: current Alcohol intake frequency: 3 or more drinks per day Alcohol type: beer Substance Use Type: Marijuana Advance Directives: No Advance Directives Information Provided: No Patient : No service: No Current occupational status: unemployed Physical Exam Vital Signs: Vital Signs: Last Vital Signs Temp 98.1 F 06/27/21 22:16 Pulse 104 H 06/28/21 04:00 Resp 16 06/28/21 04:00 BP 112/68 06/28/21 04:00 Pulse Ox 97 06/28/21 04:00 Body Mass Index 29.2 Appearance: Alert. Oriented X3. No acute distress. Eyes: Pupils equal, round and reactive to light. 4mm ENT: Pharynx normal. Neck: Normal inspection. Neck supple. CVS: Normal heart rate and rhythm. Pulses normal. Respiratory: No respiratory distress. Breath sounds normal. Abdomen: Soft and nontender. Skin: Skin warm and dry. Normal skin color. Normal skin turgor. Extremities: No lower extremity edema. No calf ttp Neuro: Oriented X 3. No motor deficit. No sensory deficit. no clonus, CN 2-12 intact. no clonus Psych: anxious, depressed, + SI, no HI Course Course Course Narrative: tele til AM per poison control will monitor and clear in AM, PRN ativan for withdrawal symptoms Physician observation started at 1054pm. Patient placed in physician observation because the patient needed more time for medical clearance and to see [facility] and be evaluated for the need for psych admission. At the time observation was started the patient's vitals were stable, patient is alert and oriented but slightly anxious, Neuro: nonfocal, CV RRR, Lungs clear signed out pending [facility] evaluation MDM - Overdose MDM Narrative Medical decision making narrative: 30 yo female with intentional overdose on venlafaxine and ETOH at 1pm today - no other medications taken at this time tox labs, EKG, tele she is 8 hours out of overdose when I interviewed her, anticipate medical clearance overnight and [facility] consult Lab Data Result diagrams: 06/27/21 20:34 06/27/21 20:34 Labs: Lab Results 06/27/21 06/27/21 06/27/21 Range/Units 20:25 20:26 20:26 WBC (4.8-10.8) X10*3/uL RBC (4.20-5.50) X10*6/uL Hgb (12.0-16.0) g/dl Hct (37-47) % MCV (80-98) fL MCH (27.0-33.0) pg MCHC (31.0-35.0) g/dl RDW (11.0-16.0) % Plt Count (160-400) X10*3/uL MPV (9.4-12.3) fL Immature Gran % (Auto) (0.0-0.4) % Neut % (Auto) (45-73) % Lymph % (Auto) (20-40) % [place] % (Auto) (2-11) % Eos % (Auto) (0-4) % Baso % (Auto) (0-2) % Lymph # (Auto) (1.2-4.9) X10*3/uL [place] # (Auto) (0.1-1.2) X10*3/uL Eos # (Auto) (0.0-0.4) X10*3/uL Baso # (Auto) (0.0-0.2) X10*3/uL Abs Immat Gran (auto) (0.00-0.03) X10*3/uL Absolute Neuts (auto) (2.0-8.3) X10*3/uL Absolute Nucleated RBC (0.0-0.012) X10*3/uL Nucleated RBC % (auto) (0.0-0.2) /100WBC PT (9.9-13.0) SEC INR (0.9-1.1) APTT (24.1-38.0) SEC Sodium (135-145) mmol/L Potassium (3.3-5.1) mmol/L Chloride (96-108) mmol/L Carbon Dioxide (22-29) mmol/L Anion Gap (12-20) BUN (9-16) mg/dL Creatinine (0.5-1.4) mg/dL Estim Creat Clear Calc Estimated GFR Random Glucose (60-115) mg/dL Calcium (8.4-10.2) mg/dL Total Bilirubin (0.0-1.0) mg/dL AST (5-31) U/L ALT (0-31) U/L Alkaline Phosphatase (39-117) U/L Total Protein (6.5-8.0) g/dL Albumin (3.5-5.0) g/dL Urine Color YELLOW Urine Appearance CLEAR Urine pH 6.5 (5.0-8.0) Ur Specific [place] 1.010 (1.005-1.025) Urine Protein TRACE (NEG-TRACE) MG/DL Urine Glucose (UA) NEG (NEG) MG/DL Urine Ketones NEG (NEG) MG/DL Urine Blood NEG (NEG) Urine Nitrite NEG (NEG) Ur Leukocyte Esterase NEG (NEG) Urine RBC 0-2 (0) /HPF Urine WBC 0-2 (0-4) /HPF Ur Squamous Epith Cells 1+ /LPF Amorphous Sediment TRACE /LPF Urine Bacteria TRACE /LPF Urine Test NEGATIVE (NEGATIVE) Salicylates (15-30) mg/dL Urine Opiates Screen Not Detected (Not Detect) Acetaminophen (<30) mcg/mL Ur Barbiturates Screen Not Detected (Not Detect) Ur Phencyclidine Scrn Not Detected (Not Detect) Ur Amphetamines Screen Not Detected (Not Detect) U Benzodiazepines Scrn Not Detected (Not Detect) Urine Cocaine Screen Not Detected (Not Detect) U Marijuana (THC) Screen POSITIVE H (Not Detect) Ethyl Alcohol mg/dL 06/27/21 06/27/21 06/27/21 Range/Units 20:34 20:34 20:34 WBC 7.0 (4.8-10.8) X10*3/uL RBC 5.46 (4.20-5.50) X10*6/uL Hgb 14.7 (12.0-16.0) g/dl Hct 43.9 (37-47) % MCV 80.4 (80-98) fL MCH 26.9 L (27.0-33.0) pg MCHC 33.5 (31.0-35.0) g/dl RDW 14.4 (11.0-16.0) % Plt Count 298 (160-400) X10*3/uL MPV 9.2 L (9.4-12.3) fL Immature Gran % (Auto) 0.1 (0.0-0.4) % Neut % (Auto) 52.4 (45-73) % Lymph % (Auto) 41.4 H (20-40) % [place] % (Auto) 5.0 (2-11) % Eos % (Auto) 0.1 (0-4) % Baso % (Auto) 1.0 (0-2) % Lymph # (Auto) 2.9 (1.2-4.9) X10*3/uL [place] # (Auto) 0.4 (0.1-1.2) X10*3/uL Eos # (Auto) 0.0 (0.0-0.4) X10*3/uL Baso # (Auto) 0.1 (0.0-0.2) X10*3/uL Abs Immat Gran (auto) 0.01 (0.00-0.03) X10*3/uL Absolute Neuts (auto) 3.6 (2.0-8.3) X10*3/uL Absolute Nucleated RBC 0.000 (0.0-0.012) X10*3/uL Nucleated RBC % (auto) 0.0 (0.0-0.2) /100WBC PT 11.2 (9.9-13.0) SEC INR 1.0 (0.9-1.1) APTT 34.2 (24.1-38.0) SEC Sodium 144 (135-145) mmol/L Potassium 4.3 (3.3-5.1) mmol/L Chloride 106 (96-108) mmol/L Carbon Dioxide 24 (22-29) mmol/L Anion Gap 18 (12-20) BUN 6 L (9-16) mg/dL Creatinine 0.77 (0.5-1.4) mg/dL Estim Creat Clear Calc 103.6 Estimated GFR > 60 Random Glucose 95 (60-115) mg/dL Calcium 8.9 (8.4-10.2) mg/dL Total Bilirubin 0.5 (0.0-1.0) mg/dL AST 36 H (5-31) U/L ALT 20 (0-31) U/L Alkaline Phosphatase 92 (39-117) U/L Total Protein 8.2 H (6.5-8.0) g/dL Albumin 4.7 (3.5-5.0) g/dL Urine Color Urine Appearance Urine pH (5.0-8.0) Ur Specific [place] (1.005-1.025) Urine Protein (NEG-TRACE) MG/DL Urine Glucose (UA) (NEG) MG/DL Urine Ketones (NEG) MG/DL Urine Blood (NEG) Urine Nitrite (NEG) Ur Leukocyte Esterase (NEG) Urine RBC (0) /HPF Urine WBC (0-4) /HPF Ur Squamous Epith Cells /LPF Amorphous Sediment /LPF Urine Bacteria /LPF Urine Test (NEGATIVE) Salicylates < 5.0 L (15-30) mg/dL Urine Opiates Screen (Not Detect) Acetaminophen < 1 (<30) mcg/mL Ur Barbiturates Screen (Not Detect) Ur Phencyclidine Scrn (Not Detect) Ur Amphetamines Screen (Not Detect) U Benzodiazepines Scrn (Not Detect) Urine Cocaine Screen (Not Detect) U Marijuana (THC) Screen (Not Detect) Ethyl Alcohol mg/dL 06/27/21 Range/Units 20:34 WBC (4.8-10.8) X10*3/uL RBC (4.20-5.50) X10*6/uL Hgb (12.0-16.0) g/dl Hct (37-47) % MCV (80-98) fL MCH (27.0-33.0) pg MCHC (31.0-35.0) g/dl RDW (11.0-16.0) % Plt Count (160-400) X10*3/uL MPV (9.4-12.3) fL Immature Gran % (Auto) (0.0-0.4) % Neut % (Auto) (45-73) % Lymph % (Auto) (20-40) % [place] % (Auto) (2-11) % Eos % (Auto) (0-4) % Baso % (Auto) (0-2) % Lymph # (Auto) (1.2-4.9) X10*3/uL [place] # (Auto) (0.1-1.2) X10*3/uL Eos # (Auto) (0.0-0.4) X10*3/uL Baso # (Auto) (0.0-0.2) X10*3/uL Abs Immat Gran (auto) (0.00-0.03) X10*3/uL Absolute Neuts (auto) (2.0-8.3) X10*3/uL Absolute Nucleated RBC (0.0-0.012) X10*3/uL Nucleated RBC % (auto) (0.0-0.2) /100WBC PT (9.9-13.0) SEC INR (0.9-1.1) APTT (24.1-38.0) SEC Sodium (135-145) mmol/L Potassium (3.3-5.1) mmol/L Chloride (96-108) mmol/L Carbon Dioxide (22-29) mmol/L Anion Gap (12-20) BUN (9-16) mg/dL Creatinine (0.5-1.4) mg/dL Estim Creat Clear Calc Estimated GFR Random Glucose (60-115) mg/dL Calcium (8.4-10.2) mg/dL Total Bilirubin (0.0-1.0) mg/dL AST (5-31) U/L ALT (0-31) U/L Alkaline Phosphatase (39-117) U/L Total Protein (6.5-8.0) g/dL Albumin (3.5-5.0) g/dL Urine Color Urine Appearance Urine pH (5.0-8.0) Ur Specific [place] (1.005-1.025) Urine Protein (NEG-TRACE) MG/DL Urine Glucose (UA) (NEG) MG/DL Urine Ketones (NEG) MG/DL Urine Blood (NEG) Urine Nitrite (NEG) Ur Leukocyte Esterase (NEG) Urine RBC (0) /HPF Urine WBC (0-4) /HPF Ur Squamous Epith Cells /LPF Amorphous Sediment /LPF Urine Bacteria /LPF Urine Test (NEGATIVE) Salicylates (15-30) mg/dL Urine Opiates Screen (Not Detect) Acetaminophen (<30) mcg/mL Ur Barbiturates Screen (Not Detect) Ur Phencyclidine Scrn (Not Detect) Ur Amphetamines Screen (Not Detect) U Benzodiazepines Scrn (Not Detect) Urine Cocaine Screen (Not Detect) U Marijuana (THC) Screen (Not Detect) Ethyl Alcohol 352 H* mg/dL ECG Data Attestation: I personally reviewed and interpreted this ECG as follows: ECG interpretation date: 06/27/21 ECG interpretation time: 21:22 Interpretation: Rate: 110 Rhythm: sinus tachycardia [place]: left Normal P waves. Normal KODY. Normal QRS complex. ST T wave : normal qTC: prolonged prior studies: no acute ischemia The study has been interpreted contemporaneously by me. . Discharge Plan Discharge Clinical Impression: Alcohol use disorder Drug overdose Qualifiers: Encounter type: initial encounter Injury intent: intentional self-harm Qualified Code(s): T50.902A - Poisoning by unspecified drugs, medicaments and biological substances, intentional self-harm, initial encounter Prescriptions: No Action naltrexone 50 mg tablet 50 mg PO DAILY Qty: 30 RF: 0 chlordiazepoxide HCl 25 mg capsule 50 mg PO Q4H PRN (Reason: alcohol withdrawal) Qty: 12 RF: 0
[2021-06-27 21:00] LABS: Ethanol 352 mg/dL
[2021-06-27 21:05] LABS: Alanine Aminotransferase 20 U/L (0-31); Albumin Level 4.7 g/dL (3.5-5.0); Alkaline Phosphatase 92 U/L (39-117); Anion Gap 18 (12-20); Aspartate Amino Transferase 36 U/L (5-31); Bilirubin Total 0.5 mg/dL (0.0-1.0); Blood Urea Nitrogen 6 mg/dL (9-16); Calcium 8.9 mg/dL (8.4-10.2); Carbon Dioxide 24 mmol/L (22-29); Chloride 106 mmol/L (96-108); Creatinine Clr Calc Pharmacy 103.6; Estimated Glomerular Filt Rate > 60; Glucose Random 95 mg/dL (60-115); Potassium 4.3 mmol/L (3.3-5.1); Salicylate < 5.0 mg/dL (15-30); Sodium 144 mmol/L (135-145); Total Protein 8.2 g/dL (6.5-8.0)
[2021-06-27 21:18] LABS: Acetaminophen LAB < 1 mcg/mL (<30)
[2021-06-27] MEDS: 0.9 % Sodium Chloride 1,000 ML 999 ML IVCONT (21:36)
--- NOTE | 2021-06-27 21:38 | PC.NURSE ---
PT MOVED TO ROOM #9 FOR SITTER AT BEDSIDE. WILL CONTINUE TO MONITOR PT.
--- NOTE | 2021-06-27 22:03 | PC.NURSE ---
ATTEMPTED TO CALL POISON CONTROL AND UNABLE TO SPEAK WITH SPECIALIST AT THIS TIME. POISON CONTROL WILL RETURN CALL. [facility] HOSPITALS IN CALLING IN AT SAME TIME. AWARE.
[2021-06-27 22:12] LABS: Amphetamine Screen Urine Not Detected (Not Detect); Barbiturates, Urine Not Detected (Not Detect); Benzodiazepines Screen Urine Not Detected (Not Detect); Cannabinoid Screen Urine POSITIVE (Not Detect); Cocaine Screen Urine Not Detected (Not Detect); Opiate Screen Urine Not Detected (Not Detect); Phencyclidine Screen Urine Not Detected (Not Detect)
[2021-06-27 22:16] VITALS: BP 119/92; PULSE 102; RESP 13; TEMP 36.7; O2SAT 98
--- NOTE | 2021-06-27 22:40 | PC.NURSE ---
POISON CONTROL RETURNED CALL AND GAVE INSTRUCTIONS TO WATCH PT OVERNIGHT FOR TACHYCARDIA, CONDUCTION DELAY, VENT ARRHYTHMIAS, HYPOTENSION, SEIZURES, SEROTONINE SYNDROME. DR GARY AWARE OF INSTRUCTIONS. PT IN NAD AT THIS TIME. WILL CONTINUE TO MONITOR PT.
--- NOTE | 2021-06-27 22:49 | PC.NURSE ---
PT IS A&OX3, SKIN W/D. PT IS NOT SLURRING SPEACH ANYMORE AND SPEAKING IN COMPLETE CLEAR SENTENCES. PT DENIES ANY COMPLAINTS AT THIS TIME.
--- NOTE | 2021-06-27 22:50 | PC.NURSE ---
PT REQUESTING A WORK NOTE. INFORMED PT SHE WILL BE SPENDING THE NIGHT UNTIL CLEARED. SITTER REMAINS WITH PT. PT IN NAD.
[2021-06-28] VITALS (9 sets, daily range): BP systolic 110–140; BP diastolic 68–95; PULSE 72–106; RESP 13–20; TEMP 37.1–37.2; O2SAT 97–100
--- NOTE | 2021-06-28 | ECG_ITS ---
Test Reason : OVERDOSE Blood Pressure : / mmHG Vent. Rate : 094 BPM Atrial Rate : 094 BPM P-R Int : 148 ms QRS Dur : 086 ms QT Int : 368 ms P-R-T Axes : 062 -37 046 degrees QTc Int : 460 ms Normal sinus rhythm Left axis deviation Abnormal ECG When compared with ECG of 27-JUN-2021 19:35, Vent. rate has decreased Referred By: Yamilka Arevalo Electronically Signed By:CARLOS SEGAL MD
[2021-06-28] MEDS: LORazepam 2 MG/ML VIAL 1 MG IVPUSH (00:01)
--- NOTE | 2021-06-28 01:17 | PC.NURSE ---
pt resting in stretcher speaking on the phone. sitter remains with pt at bedside for safety. pt in nad and VS obtained. will continue to montior pt.
--- NOTE | 2021-06-28 06:38 | PC.NURSE ---
PT REMAINS SLEEPING WITH SITTER AT BEDSIDE FOR SAFETY. PT IN NAD. WILL CONTINUE TO MONITOR PT.
--- NOTE | 2021-06-28 08:53 | PC.NURSE ---
pt is a/o x 3 no sob/radha noted skin pink warm dry speaks in full sentences. pt states that she had 2 beers and a pint of whiskey. aware.
--- NOTE | 2021-06-28 09:39 | PC.NURSE ---
poison control called ([phone]) and is requesting a repeat ekg and a return call.
--- NOTE | 2021-06-28 10:29 | PC.NURSE ---
this rn called poison control and reported the repeat ekg.
[2021-06-28 10:51] LABS: Influenza A PCR NEGATIVE (Negative); Influenza B PCR NEGATIVE (Negative); Resp Syncy Virus RNA Qual PCR NEGATIVE (Negative); SARS COV2 PCR INHOUSE NEGATIVE (Negative)
[2021-06-28] MEDS: LORazepam 2 MG/ML VIAL IVPUSH (12:46)
--- NOTE | 2021-06-28 18:07 | PHA.MEDREC ---
Pharmacy Consult ? Medication Reconciliation Pharmacy has completed the medication reconciliation.
[2021-06-28] MEDS: LORazepam 1 MG TABLET 2 MG PO (18:13)
--- NOTE | 2021-06-28 20:03 | PC.NURSE ---
PT CIWA SCORE SIGNIFICANTLY IMPROVED FOLLLOWING PO ATIVAN. PT STILL DIAPHORETIC, SLIGHT TONGUE TREMOR BUT ALERT, ORIENTED AND ABLE TO ANSWER QUESTIONS APPROPRIATELY.
--- NOTE | 2021-06-28 20:50 | MHC.CARE ---
[facility] unable to send clinician until the morning. CARE team contacted [facility] crisis triage re: taking over evaluation. Triage will notify insurance. CARE team eval will be completed this evening.
--- NOTE | 2021-06-28 22:48 | MHC.CARE ---
CARE team completed evaluation. Disposition for inpatient psych placement. Sect 12 signed and in chart pending facility admission.
[2021-06-29] MEDS: LORazepam 1 MG TABLET 2 MG PO ×3 (00:33→20:55)
--- NOTE | 2021-06-29 03:19 | PC.NURSE ---
Pt's cell phone and fitting room inspector were secured in locker 8. belongings list completed; patient's belongings could not be found in any of the lockers and/or decon despite many attempts by staff to obtain/find her items. fire extinguisher charger aware
[2021-06-29 05:46] VITALS: BP 118/79; PULSE 70; RESP 16; TEMP 36.8; O2SAT 98
[2021-06-29] MEDS: Multivitamin TABLET 1 TAB PO (09:33)
--- NOTE | 2021-06-29 09:34 | PC.NURSE ---
Pt alert and oriented x3, vss. Pt has no c/o pain at this time. Breakfast provided, med given as documented. Pt asking to go home today, she states that placement would be a waste of time. this business writer will contact crisis for further follow-up.
[2021-06-29 09:39] VITALS: BP 125/89; PULSE 75; RESP 18; O2SAT 98
[2021-06-29] MEDS: Venlafaxine HCl ER 37.5 MG CAP.ER.24H PO (10:37)
--- NOTE | 2021-06-29 10:38 | PC.NURSE ---
Uriel received from pharmacy at 1030. Med given. Leonardo from Care Team was at pt's bedside. Plan of care remains the same as of this time.
[2021-06-29 16:03] VITALS: BP 128/92; PULSE 95; RESP 20; TEMP 37.1; O2SAT 98
--- NOTE | 2021-06-29 17:39 | MHC.RECOVSUP ---
? Reason for consult Recovery Support o Current location: ED9 <del>o</del> <del>Identified</del> <del>substance</del> <del>use</del> <del>concern:</del> <del>-</del> <del>Overdose</del> <del>-</del> <del>Withdrawal</del> <del>-</del> <del>Seeking</del> <del>ATS</del> <del>(detox)</del> <del>-</del> <del>Support</del> ? Intervention: <del>o</del> <del>ATS</del> <del>bed</del> <del>search</del> <del>started/completed/in</del> <del>process</del> <del>o</del> <del>MAT</del> <del>started</del> <del>or</del> <del>to</del> <del>be</del> <del>started</del> o Community resources provided o Harm reduction discussion ? Plan: <del>o</del> <del>Referral</del> <del>to</del> <del>[facility]</del> <del>o</del> <del>Bed</del> <del>search</del> <del>in</del> <del>progress</del> <del>to</del> <del>o</del> <del>Follow</del> <del>up</del> <del>tomorrow</del> o Patient awaiting crisis evaluation o Patient to follow up with [facility] after discharge ? Additional information: Met with patient and talked about recovery and Harm reduction... Patient took all the resources I offered.. Patient stated that they had some time and relapse because she was upset..
[2021-06-29] MEDS: Ibuprofen 600 MG TABLET PO (18:01)
[2021-06-29] MEDS: Acetaminophen 325 MG TABLET 650 MG PO (18:02)
--- NOTE | 2021-06-30 06:16 | PC.NURSE ---
Patient slept through the night, no distress observed/reported, mood depressed, affect flat, med compliant, no behavior concerns, VSS, appetite good, disposition section 12 inpatient bed search, will continue to monitor.
[2021-06-30 06:18] VITALS: BP 124/81; PULSE 100; TEMP 36.1; O2SAT 99
[2021-06-30] MEDS: LORazepam 1 MG TABLET 2 MG PO (06:39)
--- NOTE | 2021-06-30 06:47 | PC.NURSE ---
Patient reported anxiety 5/10, CIWA assessed scored 1, asymptomatic of withdrawal, Ativan 2 mg PRN order, administered/pending effect, will continue to monitor.
[2021-06-30] MEDS: Venlafaxine HCl ER 37.5 MG CAP.ER.24H PO (09:23)
[2021-06-30] MEDS: Multivitamin TABLET 1 TAB PO (09:23)
--- NOTE | 2021-06-30 11:01 | PC.NURSE ---
PT SLEEPING. BEDSEARCH CONTINUES. CLOSE OBSERVATION MAINTAINED
--- NOTE | 2021-06-30 17:42 | PC.ADMIT ---
PT IS A 30 YEAR OLD FEMALE ADMITTED FROM THE [facility] [place] [place] ED. PT IS A CONDITIONAL VOLUNTARY ON 15 MINUTE SAFETY CHECKS. SHE IS IN PSYCH/DUAL GROUP. PT WAS BROUGHT IN BY AMBULANCE SECONDARY TO INTENTIONAL OD WITH PRESCRIPTION MEDICATIONS. PT SATATED THAT SHE HAS BEEN STRUGGLING OVER THE PAST WEEK. SHE WAS MOVING AND HER WHOLE FAMILY WAS ARGUING. SHE SAID SHE TOOK A LOW DOSE OF MEDICATIONS TO GET HER FAMILY TO STOP FIGHTING SHE DID NOT ACTUALLY WANT TO . PT HAS BEEN DRINKING EXCESSIVELY FOR THE PAST 5 DAYS AFTER BEING SOBER FOR A LITTLE OVER A MONTH. PT DENIES ANY CURRENT SUICIDAL OR HOMICIDAL IDEATIONS. PT DENIES ANY WITHDRAWAL SYMPTOMS OTHER THAN MILD NAUSEA. PT STATES SOME DIFFICULTY EATING DUE TO DECREASED APPEITITE FROM DRINKING. PT IS NERVOUS ABOUT BEING ON THE UNIT SHE HAS ONLY BEEN HOSPITALIZED ONE TIME BEFORE. PT IS NOT A TOBACCO USER AND DOES NOT NEED NICOTINE REPLACEMENT. PT DOES HAVE A TRAUMA HISTORY AROUND MEN AND PREFERS TO BE AROUND WOMEN. PT WAS CALM AND COOPERATIVE DURING ADMISSION. SHE IS ALERT AND ORIENTEDX4. PT STATES THAT SHE USUALLY HAS VISUAL HALLUCINATIONS OF IMAGES BUT HAS NOT HAD THEM SINCE SHES BEEN GETTING MEDS TO NOT WITHDRAWAL .
[2021-06-30 18:00] VITALS: BP 150/95; PULSE 103; RESP 16; TEMP 37; O2SAT 97
[2021-06-30] MEDS: Gabapentin 300 MG CAPSULE PO ×2 (18:01→20:29)
[2021-06-30] MEDS: LORazepam 1 MG TABLET PO ×2 (18:01→20:29)
[2021-06-30] MEDS: Ondansetron ODT 4 MG TAB.RAPDIS TRANSLINGU (18:10)
[2021-06-30] MEDS: Ibuprofen 600 MG TABLET PO (19:47)
[2021-07-01] MEDS: Ondansetron ODT 4 MG TAB.RAPDIS TRANSLINGU ×2 (02:30→20:07)
[2021-07-01] MEDS: LORazepam 1 MG TABLET PO ×4 (02:30→20:07)
[2021-07-01] MEDS: hydrOXYzine HCL 25 MG TABLET PO ×2 (02:30→21:33)
[2021-07-01 06:00] VITALS: BP 129/71; PULSE 99; RESP 12; TEMP 36.4; O2SAT 98
[2021-07-01 07:00] VITALS: BMI 24.4
[2021-07-01] MEDS: Multivitamin TABLET 1 TAB PO (09:04)
[2021-07-01] MEDS: Gabapentin 300 MG CAPSULE PO ×3 (09:04→20:07)
[2021-07-01] MEDS: Venlafaxine HCl ER 37.5 MG CAP.ER.24H PO ×2 (09:04→15:46)
--- NOTE | 2021-07-01 15:50 | PC.NURSE ---
pt signed a 3 day notice on , 07/01/21. Pts 3 day notice is up on 07/06/21.
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
[2021-07-01 19:23] VITALS: BP 143/100; PULSE 88; RESP 16; O2SAT 98
[2021-07-01] MEDS: traZODone HCL 50 MG TABLET PO (21:33)
[2021-07-02] MEDS: LORazepam 1 MG TABLET PO ×4 (02:00→20:42)
[2021-07-02 06:00] VITALS: BP 122/84; PULSE 74; RESP 18; TEMP 35.9; O2SAT 98
[2021-07-02] MEDS: Gabapentin 300 MG CAPSULE PO ×2 (08:36→20:42)
[2021-07-02] MEDS: Venlafaxine HCl ER 37.5 MG CAP.ER.24H PO (08:36)
[2021-07-02] MEDS: Multivitamin TABLET 1 TAB PO (08:36)
[2021-07-02] MEDS: Venlafaxine HCl ER 75 MG CAP.ER.24H PO (08:36)
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
[2021-07-02 18:00] VITALS: BP 135/100; PULSE 109; RESP 16; TEMP 37; O2SAT 97
[2021-07-02] MEDS: Ondansetron ODT 4 MG TAB.RAPDIS TRANSLINGU (18:31)
[2021-07-02] MEDS: traZODone HCL 50 MG TABLET PO ×2 (20:46→22:52)
[2021-07-02] MEDS: Ibuprofen 600 MG TABLET PO (22:43)
[2021-07-03] MEDS: Venlafaxine HCl ER 37.5 MG CAP.ER.24H PO (08:56)
[2021-07-03] MEDS: Venlafaxine HCl ER 75 MG CAP.ER.24H PO (08:56)
[2021-07-03] MEDS: Multivitamin TABLET 1 TAB PO (08:57)
[2021-07-03] MEDS: LORazepam 1 MG TABLET PO ×2 (08:57→20:39)
[2021-07-03] MEDS: Gabapentin 300 MG CAPSULE PO ×2 (08:58→20:38)
[2021-07-03] MEDS: Ibuprofen 600 MG TABLET PO ×2 (09:27→21:40)
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
[2021-07-03 12:13] VITALS: BP 125/85; PULSE 97; RESP 16; TEMP 36.5; O2SAT 99
[2021-07-03] MEDS: hydrOXYzine HCL 25 MG TABLET PO ×2 (17:33→20:38)
[2021-07-03] MEDS: traZODone HCL 50 MG TABLET PO (20:38)
[2021-07-03 21:06] VITALS: BP 172/99; PULSE 100; RESP 18; TEMP 37; O2SAT 100
[2021-07-04 06:00] VITALS: BP 130/78; PULSE 85; RESP 16; TEMP 36.7; O2SAT 99
[2021-07-04] MEDS: LORazepam 1 MG TABLET PO ×4 (06:35→20:59)
[2021-07-04] MEDS: Gabapentin 300 MG CAPSULE PO (08:32)
[2021-07-04] MEDS: Venlafaxine HCl ER 75 MG CAP.ER.24H PO (08:32)
[2021-07-04] MEDS: Multivitamin TABLET 1 TAB PO (08:33)
[2021-07-04] MEDS: Venlafaxine HCl ER 37.5 MG CAP.ER.24H PO (08:33)
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
[2021-07-04] MEDS: hydrOXYzine HCL 25 MG TABLET PO ×2 (14:16→18:45)
[2021-07-04] MEDS: Ondansetron ODT 4 MG TAB.RAPDIS TRANSLINGU (14:16)
[2021-07-04] MEDS: Ibuprofen 600 MG TABLET PO (17:04)
[2021-07-04 18:00] VITALS: BP 121/88; PULSE 111; TEMP 36.5
--- NOTE | 2021-07-04 18:40 | MHC.RECOVSUP ---
Patient was not feeling up to talking
[2021-07-04] MEDS: traZODone HCL 100 MG TABLET PO (20:42)
[2021-07-05 06:00] VITALS: BP 122/71; PULSE 73; RESP 16; TEMP 36.1; O2SAT 100
[2021-07-05] MEDS: Venlafaxine HCl ER 75 MG CAP.ER.24H PO (08:40)
[2021-07-05] MEDS: Multivitamin TABLET 1 TAB PO (08:40)
[2021-07-05] MEDS: Venlafaxine HCl ER 37.5 MG CAP.ER.24H PO ×2 (08:40→16:13)
[2021-07-05] MEDS: Ibuprofen 600 MG TABLET PO (09:28)
[2021-07-05] MEDS: hydrOXYzine HCL 25 MG TABLET PO ×2 (09:28→20:41)
[2021-07-05] MEDS: LORazepam 1 MG TABLET PO (14:52)
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
[2021-07-05 16:15] VITALS: BP 129/88; PULSE 75; TEMP 36.4
[2021-07-05] MEDS: Magnesium Hydrox/Alum Hydrox 30 ML ORAL.SUSP PO (20:41)
[2021-07-05] MEDS: traZODone HCL 100 MG TABLET PO (21:57)
[2021-07-06 06:00] VITALS: BP 111/61; PULSE 70; RESP 16; TEMP 36.1; O2SAT 99
[2021-07-06] MEDS: Multivitamin TABLET 1 TAB PO (08:48)
[2021-07-06] MEDS: Venlafaxine HCl ER 150 MG CAP.ER.24H PO (08:48)
[2021-07-06] MEDS: hydrOXYzine HCL 25 MG TABLET PO ×2 (08:56→11:40)
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
[2021-07-06] MEDS: Nicotine Polacrilex 2 MG GUM 4 MG BUCCAL (11:40)
== END 2021-07-06 14:31 | disposition home or self-care (01) | DRG 751 ==
LOC: HO.ED 06-29 20:43 → HO.PM5 06-30 15:39
PROVIDERS: Nurse Practitioner Primary Care; Physician Assistant Medical; Admitting Provider Psychiatry & Neurology Psychiatry; Emergency Provider Emergency Medicine; Visit Provider Psychiatry & Neurology Psychiatry
DX: F33.2 Major depressive disorder, recurrent severe without psychotic features (principal); R45.851 Suicidal ideations; F41.1 Generalized anxiety disorder; F43.10 Post-traumatic stress disorder, unspecified; Z91.5 Personal history of self-harm; Z20.822 Contact with and (suspected) exposure to COVID-19; Z79.899 Other long term (current) drug therapy
CPT/HCPCS: 0241U; 36415; 80053; 80143; 80179; 80307; 81001; 81025; 82077; 85025; 85610; 85730; 93005; 99285; J2060; J2405

== ENCOUNTER 2021-07-07 22:55 | Emergency (ER) | payer OTHER, SELFPAY ==
[2021-07-07 23:08] VITALS: BP 111/69; BP 130/80; PULSE 115; PULSE 120; RESP 16; TEMP 36.7; O2SAT 100; O2SAT 98; BMI 23.5
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
[2021-07-07] MEDS: Haloperidol Lactate 5 MG/ML VIAL IM (23:24)
[2021-07-07] MEDS: LORazepam 2 MG/ML VIAL IM (23:24)
[2021-07-07] MEDS: diphenhydrAMINE HCL 50 MG/ML VIAL IM (23:24)
--- NOTE | 2021-07-07 23:40 | PC.NURSE ---
patient acutely intoxicated.
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
[2021-07-08 00:14] LABS: Glucose, Whole Blood 76 mg/dL (60-115)
[2021-07-08 01:07] VITALS: BP 91/45; PULSE 88; RESP 14; O2SAT 97
--- NOTE | 2021-07-08 01:21 | PC.NURSE ---
Sleeping at this time.
[2021-07-08 08:45] VITALS: BP 102/59; PULSE 99; RESP 18; TEMP 37.1; O2SAT 98
[2021-07-08 08:52] LABS: MANUAL DIFF FLAG NO
[2021-07-08 08:59] LABS: Basophils Percent Auto 0.3 % (0-2); Eosinophils Percent Auto 0.5 % (0-4); Hematocrit 39.6 % (37-47); Hemoglobin 13.1 g/dl (12.0-16.0); Imm Gran Abs Auto 0.02 X10*3/uL (0.00-0.03); Imm Gran Pct Auto 0.3 % (0.0-0.4); Lymphocytes Absolute Auto 1.8 X10*3/uL (1.2-4.9); Mean Corpuscular HGB Conc 33.1 g/dl (31.0-35.0); Mean Corpuscular Hemoglobin 27.3 pg (27.0-33.0); Mean Corpuscular Volume 82.5 fL (80-98); Mean Platelet Volume 10.8 fL (9.4-12.3); Monocytes Absolute Auto 0.5 X10*3/uL (0.1-1.2); Monocytes Percent Auto 8.2 % (2-11); Neutrophils Percent Auto 62.7 % (45-73); Platelet Count 229 X10*3/uL (160-400); Red Cell Distribution Width 14.3 % (11.0-16.0); White Blood Count 6.3 X10*3/uL (4.8-10.8)
[2021-07-08 09:17] LABS: Ethanol 198 mg/dL
[2021-07-08 09:19] LABS: Magnesium 1.7 mg/dL (1.6-2.6)
[2021-07-08 09:22] LABS: Alanine Aminotransferase 13 U/L (0-31); Albumin Level 4.1 g/dL (3.5-5.0); Alkaline Phosphatase 59 U/L (39-117); Anion Gap 11 (12-20); Aspartate Amino Transferase 39 U/L (5-31); Bilirubin Total < 0.2 mg/dL (0.0-1.0); Blood Urea Nitrogen 9 mg/dL (9-16); Calcium 8.6 mg/dL (8.4-10.2); Carbon Dioxide 26 mmol/L (22-29); Chloride 109 mmol/L (96-108); Creatinine Clr Calc Pharmacy 115.9; Estimated Glomerular Filt Rate > 60; Glucose Random 82 mg/dL (60-115); Lipase 35 U/L (8-78); Potassium 3.8 mmol/L (3.3-5.1); Sodium 142 mmol/L (135-145); Total Protein 6.8 g/dL (6.5-8.0)
[2021-07-08 09:27] LABS: HCG Quantitative < 2 mIU/mL
[2021-07-08 09:35] LABS: Influenza A PCR NEGATIVE (Negative); Influenza B PCR NEGATIVE (Negative); Resp Syncy Virus RNA Qual PCR NEGATIVE (Negative); SARS COV2 PCR INHOUSE NEGATIVE (Negative)
--- NOTE | 2021-07-08 11:04 | PC.NURSE ---
pt has been sleeping all morning, maintained on 1:1. vss as charted, awaiting disposition.
--- NOTE | 2021-07-08 11:09 | PC.NURSE ---
Patient is awake, reporting she wants to leave. MD to talk to patient.
== END 2021-07-08 11:31 | disposition home or self-care (01) ==
PROVIDERS: Physician Assistant Medical; Emergency Provider Emergency Medicine
DX: R45.851 Suicidal ideations (principal); F10.220 Alcohol dependence with intoxication, uncomplicated; Y90.6 Blood alcohol level of 120-199 mg/100 ml; R45.6 Violent behavior; Z78.1 Physical restraint status; Z20.822 Contact with and (suspected) exposure to COVID-19; F33.2 Major depressive disorder, recurrent severe without psychotic features; F43.12 Post-traumatic stress disorder, chronic; Z79.899 Other long term (current) drug therapy
CPT/HCPCS: 0241U; 36415; 80053; 82077; 82947; 83690; 83735; 84702; 85025; 96372; 99284; 99285; J1200; J2060

== ENCOUNTER 2021-08-07 10:31 | Emergency (ER) | payer OTHER, SELFPAY ==
[2021-08-07 11:15] VITALS: BP 147/110; PULSE 81; RESP 20; TEMP 36.9; O2SAT 99; BMI 26.5
--- NOTE | 2021-08-07 13:11 | ECG_ITS ---
Test Reason : SUBSTANCE ABUSE Blood Pressure : / mmHG Vent. Rate : 066 BPM Atrial Rate : 066 BPM P-R Int : 146 ms QRS Dur : 078 ms QT Int : 436 ms P-R-T Axes : 050 -17 030 degrees QTc Int : 457 ms Normal sinus rhythm Normal ECG When compared with ECG of 28-JUN-2021 09:55, No significant change was found Referred By: Tara Rubio Electronically Signed By:JADEN AGUIRRE
[2021-08-07 13:18] VITALS: BP 174/118; PULSE 90
[2021-08-07 13:19] VITALS: BP 186/120; PULSE 82; PULSE 85; RESP 18; TEMP 36.6; O2SAT 99
--- NOTE | 2021-08-07 13:24 | ED.ALCOHOL ---
HPI - Alcohol General Chief Complaint: ETOH/Substance Use Stated Complaint: LIGHTHEADED Time Seen by Provider: 08/07/21 11:31 Source: patient and other (Patient accompanied by her friend at the bedside.) Mode of arrival: ambulatory Limitations: no limitations History of Present Illness HPI narrative: This is a 30-year-old female who presents from home with complaints of dizziness, nausea and vomiting for 2 days. She states she feels like she is walking on a boat. She states that she is having hard time keeping solids and liquids down, and when she eats she tends to throw up. She states that 1 week ago she had an alcohol withdrawal seizure for which she was seen at [facility] for. She states that since her discharge from [facility] she has continued to drink her last drinks were yesterday night where she drank 6 beers. She states she is still drinking because helps her feel better, and helps her dizziness. She states that she is currently trying to cut down on drinking, and is looking for help, but has been unable to find any. She is also reporting chest pain that started 2 days ago as well. The pain is centralized, and does not radiate. She denies shortness of breath, tremors, visual or auditory hallucinations, diaphoresis, fevers, chills, headaches, falls, sick contacts, abdominal pain, SI and HI. She denies any other illicit drug use, and states that she is not a smoker. MD complaint: alcohol withdrawal and alcohol dependence Last drink: Days (ago) (2 days ) Amount of alcohol consumed: Last night she had 6 beers. Chronic alcohol use: Yes Previous visits for alcohol intoxication: Yes Recent trauma: No Associated symptoms: nausea, vomiting and other (Dizziness) Treatments prior to arrival: none Related Data Home Medications Medication Instructions Recorded Confirmed multivitamin 1 tab PO DAILY 06/28/21 06/28/21 Previous Rx's Medication Instructions Recorded hydroxyzine HCl 25 mg tablet 25 mg PO BID PRN 30 Days #60 tab 07/06/21 trazodone 100 mg tablet 100 mg PO BEDTIME PRN 30 Days #30 07/06/21 tab venlafaxine 150 mg 150 mg PO DAILY 30 Days #30 cap 07/06/21 capsule,extended release 24 hr chlordiazepoxide HCl 25 mg capsule 25 mg PO Q8H PRN #4 cap 08/07/21 Allergies Allergy/AdvReac Type Severity Reaction Status Date / Time No Known Allergies Allergy Verified 05/18/21 22:53 [No Known Allergies*] Review of Systems Review of Systems: Constitutional: No Fever, No Chills ENT/Mouth: No sore throat, No Rhinorrhea, No Swallowing Difficulty Eyes: No Eye Pain, No Swelling, No Redness Cardiovascular: + Chest Pain, No SOB, No Orthopnea, No Edema Respiratory: No Cough, No Sputum, No Wheezing, No dyspnea Gastrointestinal: + Nausea, + Vomiting, No Diarrhea, No abdominal Pain, No Hematochezia, No Melena Genitourinary: No Dysuria, No Urinary Frequency, No Hematuria Musculoskeletal: No joint pain, No Myalgias Skin: No Skin Lesions, No rash Neuro: No Weakness, No Numbness, + Dizziness, No Headache Psych: No Anxiety/Panic, No Depression Heme/Lymph: No Bruising, No Lymphadenopathy Endocrine: No Polyuria, No Polydipsia PMFSH Past Medical History Medical History (Updated 08/07/21 @ 15:53 by NANY Ramírez) Alcohol abuse with withdrawal delirium Alcohol use disorder Alcohol withdrawal delirium Alcohol withdrawal seizure Alcoholism Anxiety Bulimia Chronic post-traumatic stress disorder (PTSD) Depression SANDY (generalized anxiety disorder) MDD (major depressive disorder), recurrent episode, moderate MDD (major depressive disorder), recurrent episode, severe Panic attack Family History Family History Brother Substance abuse Social History Social History Household Members: Family Housing: Apartment Do you presently have visiting nurse or other home services: No Alcohol intake: current Alcohol intake frequency: 3 or more drinks per day Alcohol type: beer and hard liquor Patient Tobacco Use Status: Never used Tobacco e-Cigarette/Vaping Use: Never Used Second Hand Smoke Exposure: No Substance Use Type: Marijuana Advance Directives: Yes Advance Directives Information Provided: No Advance Directives on File: No Patient : No service: No Current occupational status: unemployed Sexual orientation: Straight/Heterosexual Physical Exam Vital Signs: Vital Signs: Last Vital Signs Temp 98 F 08/07/21 13:19 Pulse 92 08/07/21 13:27 Resp 18 08/07/21 13:19 BP 164/118 H 08/07/21 13:27 Pulse Ox 99 08/07/21 13:19 Body Mass Index 26.5 Appearance: Alert. Oriented X3. No acute distress. Patient has a flat affect, is answering questions appropriately. Appears anxious. Eyes: Pupils equal, round and reactive to light, no nystagmus noted ENT: Pharynx normal. Neck: Normal inspection. Neck supple. CVS: +Fast rate (90-100) normal rhythm. Pulses normal. Respiratory: No respiratory distress. Breath sounds normal. Abdomen: Soft and nontender. +BS x4 Skin: Skin warm and dry. Normal skin color. Normal skin turgor. No rashes. No diaphoresis Extremities: No lower extremity edema. Neuro: Oriented X 3. No motor deficit. No sensory deficit. No tremors noted. No asterixis or fasciculations Course Course Course Narrative: This is a 30-year-old female that presents to the emergency department with dizziness, chest pain which began 2 days ago. She states that she is trying to cut down on her alcohol use, since she had an alcohol withdrawal seizure about a week ago (07/30/2021). She states the stay admitted her with an alcohol withdrawal seizure, she was there for 2 days and then decided to leave AMA. Yesterday she had 6 beers, and ever since then her dizziness and chest pain have been worsening. She denies any visual, or auditory hallucinations, there is no evident tremors, asterixis or fasciculations She denies shortness of breath, fevers, chills, falls. She denies any other illicit drug use. An EKG, basic labs, urine drug tox, UA, urine COVID swab, orthostatic vital signs and an ethanol level have all been ordered. She will be given fluids, and an antiemetic to help improve her nausea. Based off of the patient's history, physical exam the clinical picture is most consistent with mild acute alcohol withdrawal and positive opiate withdrawal. Reevaluation(s) Reevaluation #1: Care team, Sharan met with the patient at the bedside. Patient is accompanied by her best friend who she has been staying with. She is currently in the process of looking for a bed at a detox. She states she will go to detox this week. Patient would like to get discharged home, and she would like to look for a bed herself. The care team has provided her with resources as well. Plan at this time is to discharge home, with a safe adult, she will be prescribed Librium. She has been instructed on the importance of not drinking with this medication. And she has also been educated that if she drinks she can develop seizures. She agrees to this plan, she understands and has no further questions or comments. She is seen discharge home a plan of going to detox early this week. Time: 15:43 MDM - Alcohol Lab Data Result diagrams: 08/07/21 13:31 08/07/21 13:31 Labs: Lab Results 08/07/21 08/07/21 08/07/21 Range/Units 13:31 13:31 13:31 WBC 4.1 L (4.8-10.8) X10*3/uL RBC 4.48 (4.20-5.50) X10*6/uL Hgb 12.7 (12.0-16.0) g/dl Hct 38.3 (37-47) % MCV 85.5 (80-98) fL MCH 28.3 (27.0-33.0) pg MCHC 33.2 (31.0-35.0) g/dl RDW 16.3 H (11.0-16.0) % Plt Count 208 (160-400) X10*3/uL MPV 10.0 (9.4-12.3) fL Immature Gran % (Auto) 0.2 (0.0-0.4) % Neut % (Auto) 70.9 (45-73) % Lymph % (Auto) 16.7 L (20-40) % Island % (Auto) 11.2 H (2-11) % Eos % (Auto) 0.0 (0-4) % Baso % (Auto) 1.0 (0-2) % Lymph # (Auto) 0.7 L (1.2-4.9) X10*3/uL Island # (Auto) 0.5 (0.1-1.2) X10*3/uL Eos # (Auto) 0.0 (0.0-0.4) X10*3/uL Baso # (Auto) 0.0 (0.0-0.2) X10*3/uL Abs Immat Gran (auto) 0.01 (0.00-0.03) X10*3/uL Absolute Neuts (auto) 2.9 (2.0-8.3) X10*3/uL Absolute Nucleated RBC 0.000 (0.0-0.012) X10*3/uL Nucleated RBC % (auto) 0.0 (0.0-0.2) /100WBC Sodium 137 (135-145) mmol/L Potassium 4.0 (3.3-5.1) mmol/L Chloride 101 (96-108) mmol/L Carbon Dioxide 28 (22-29) mmol/L Anion Gap 12 (12-20) BUN 5 L (9-16) mg/dL Creatinine 0.65 (0.5-1.4) mg/dL Estim Creat Clear Calc 117.1 Estimated GFR > 60 Random Glucose 93 (60-115) mg/dL Calcium 9.2 D (8.4-10.2) mg/dL Urine Color Urine Appearance Urine pH (5.0-8.0) Ur Specific [place] (1.005-1.025) Urine Protein (NEG-TRACE) MG/DL Urine Glucose (UA) (NEG) MG/DL Urine Ketones (NEG) MG/DL Urine Blood (NEG) Urine Nitrite (NEG) Ur Leukocyte Esterase (NEG) Urine Test (NEGATIVE) Urine Opiates Screen (Not Detect) Urine Fentanyl Screen (Not Detect) Ur Barbiturates Screen (Not Detect) Ur Phencyclidine Scrn (Not Detect) Ur Amphetamines Screen (Not Detect) U Benzodiazepines Scrn (Not Detect) Urine Cocaine Screen (Not Detect) U Marijuana (THC) Screen (Not Detect) Ethyl Alcohol mg/dL COVID-19 ([facility]ICA) Negative (Negative) COVID-19 Clin Com See Note 08/07/21 08/07/21 08/07/21 Range/Units 13:43 13:43 13:43 WBC (4.8-10.8) X10*3/uL RBC (4.20-5.50) X10*6/uL Hgb (12.0-16.0) g/dl Hct (37-47) % MCV (80-98) fL MCH (27.0-33.0) pg MCHC (31.0-35.0) g/dl RDW (11.0-16.0) % Plt Count (160-400) X10*3/uL MPV (9.4-12.3) fL Immature Gran % (Auto) (0.0-0.4) % Neut % (Auto) (45-73) % Lymph % (Auto) (20-40) % Island % (Auto) (2-11) % Eos % (Auto) (0-4) % Baso % (Auto) (0-2) % Lymph # (Auto) (1.2-4.9) X10*3/uL Island # (Auto) (0.1-1.2) X10*3/uL Eos # (Auto) (0.0-0.4) X10*3/uL Baso # (Auto) (0.0-0.2) X10*3/uL Abs Immat Gran (auto) (0.00-0.03) X10*3/uL Absolute Neuts (auto) (2.0-8.3) X10*3/uL Absolute Nucleated RBC (0.0-0.012) X10*3/uL Nucleated RBC % (auto) (0.0-0.2) /100WBC Sodium (135-145) mmol/L Potassium (3.3-5.1) mmol/L Chloride (96-108) mmol/L Carbon Dioxide (22-29) mmol/L Anion Gap (12-20) BUN (9-16) mg/dL Creatinine (0.5-1.4) mg/dL Estim Creat Clear Calc Estimated GFR Random Glucose (60-115) mg/dL Calcium (8.4-10.2) mg/dL Urine Color YELLOW Urine Appearance HAZY Urine pH 7.5 (5.0-8.0) Ur Specific [place] 1.020 (1.005-1.025) Urine Protein NEG (NEG-TRACE) MG/DL Urine Glucose (UA) NEG (NEG) MG/DL Urine Ketones NEG (NEG) MG/DL Urine Blood NEG (NEG) Urine Nitrite NEG (NEG) Ur Leukocyte Esterase NEG (NEG) Urine Test NEGATIVE (NEGATIVE) Urine Opiates Screen Not Detected (Not Detect) Urine Fentanyl Screen POSITIVE H (Not Detect) Ur Barbiturates Screen POSITIVE H (Not Detect) Ur Phencyclidine Scrn Not Detected (Not Detect) Ur Amphetamines Screen Not Detected (Not Detect) U Benzodiazepines Scrn Not Detected (Not Detect) Urine Cocaine Screen Not Detected (Not Detect) U Marijuana (THC) Screen POSITIVE H (Not Detect) Ethyl Alcohol mg/dL COVID-19 ([facility]ICA) (Negative) COVID-19 Clin Com 08/07/21 Range/Units 13:45 WBC (4.8-10.8) X10*3/uL RBC (4.20-5.50) X10*6/uL Hgb (12.0-16.0) g/dl Hct (37-47) % MCV (80-98) fL MCH (27.0-33.0) pg MCHC (31.0-35.0) g/dl RDW (11.0-16.0) % Plt Count (160-400) X10*3/uL MPV (9.4-12.3) fL Immature Gran % (Auto) (0.0-0.4) % Neut % (Auto) (45-73) % Lymph % (Auto) (20-40) % Island % (Auto) (2-11) % Eos % (Auto) (0-4) % Baso % (Auto) (0-2) % Lymph # (Auto) (1.2-4.9) X10*3/uL Island # (Auto) (0.1-1.2) X10*3/uL Eos # (Auto) (0.0-0.4) X10*3/uL Baso # (Auto) (0.0-0.2) X10*3/uL Abs Immat Gran (auto) (0.00-0.03) X10*3/uL Absolute Neuts (auto) (2.0-8.3) X10*3/uL Absolute Nucleated RBC (0.0-0.012) X10*3/uL Nucleated RBC % (auto) (0.0-0.2) /100WBC Sodium (135-145) mmol/L Potassium (3.3-5.1) mmol/L Chloride (96-108) mmol/L Carbon Dioxide (22-29) mmol/L Anion Gap (12-20) BUN (9-16) mg/dL Creatinine (0.5-1.4) mg/dL Estim Creat Clear Calc Estimated GFR Random Glucose (60-115) mg/dL Calcium (8.4-10.2) mg/dL Urine Color Urine Appearance Urine pH (5.0-8.0) Ur Specific [place] (1.005-1.025) Urine Protein (NEG-TRACE) MG/DL Urine Glucose (UA) (NEG) MG/DL Urine Ketones (NEG) MG/DL Urine Blood (NEG) Urine Nitrite (NEG) Ur Leukocyte Esterase (NEG) Urine Test (NEGATIVE) Urine Opiates Screen (Not Detect) Urine Fentanyl Screen (Not Detect) Ur Barbiturates Screen (Not Detect) Ur Phencyclidine Scrn (Not Detect) Ur Amphetamines Screen (Not Detect) U Benzodiazepines Scrn (Not Detect) Urine Cocaine Screen (Not Detect) U Marijuana (THC) Screen (Not Detect) Ethyl Alcohol < 10 mg/dL COVID-19 ([facility]) (Negative) COVID-19 Clin Com ECG Data ECG #1: Attestation: I personally reviewed and interpreted this ECG as follows: ECG interpretation date: 08/07/21 ECG interpretation time: 15:00 Prior ECG tracings: available for review Interpretation: Ventricular rate of 66 MN interval normal QRS normal QT/QTC normal,normal axis, normal sinus rhythm normal ECG. No significant changes when compared to her EKG on 06/28/2021. No acute ischemia Discharge Plan Discharge Clinical Impression: Alcohol use disorder, Polysubstance abuse, Dizziness Patient Disposition: Home, Self-Care Instructions: Abuse of Alcohol (ED), Polysubstance Abuse (ED), Dizziness (ED) Additional Instructions: STOP DRINKING. DRINKING ON LIBRIUM IS DANGEROUS. You were given 1 dose of Librium here in the emergency department, and has been prescribed Librium to take at home. Call outpatient alcohol detox facility facilities and try to get in as soon as possible Drink plenty of water. You have been seen by the care team here today, they have provided you with resources for alcohol use disorder, and phone numbers that you can contact. Follow-up with your primary care provider If you develop new or worsening symptoms call 911 or come back to the ER for further evaluation. Prescriptions: New chlordiazepoxide HCl 25 mg capsule 25 mg PO Q8H PRN (Reason: alcohol withdrawal) Qty: 4 RF: 0 No Action multivitamin Tablet 1 tab PO DAILY RF: 0 venlafaxine 150 mg Capsule,Extended Release 24hr 150 mg PO DAILY 30 Days Qty: 30 RF: 0 trazodone 100 mg Tablet 100 mg PO BEDTIME PRN (Reason: insomnia) 30 Days Qty: 30 RF: 0 hydroxyzine HCl 25 mg Tablet 25 mg PO BID PRN (Reason: Anxiety) 30 Days Qty: 60 RF: 0 Referrals: Mike Farnks MD [Primary Care Provider] - 2 days
[2021-08-07 13:27] VITALS: BP 164/118; PULSE 92
--- NOTE | 2021-08-07 13:38 | MHC.RECOVSUP ---
Recovery Support note: Patient is a 30 year old Irish speaking female who presented to [facility] ED reporting lightheadedness and fear of alcohol withdrawal seizures. This documentation writer met with patient to discuss alcohol use and treatment options. Patient reported last drinking yesterday evening and that she is unsure if she is starting to withdraw. Patient initially reported a desire to go to [facility] however after a bed was located, changed her mind regarding treatment. Patient was willing to accept resources and states she will contact [facility] facilities when she is ready. Patient accepted information on IOP, [facility], [facility], [facility] and [place] [facility]. Encouraged patient to go to [facility] to work with a Financial Risk Manager on securing treatment when she is ready. Provided patient with the contact information for this documentation writer. Patient reports no questions or concerns at this time.
[2021-08-07 13:50] LABS: MANUAL DIFF FLAG NO
[2021-08-07 13:52] LABS: Hematocrit 38.3 % (37-47); Hemoglobin 12.7 g/dl (12.0-16.0); Imm Gran Abs Auto 0.01 X10*3/uL (0.00-0.03); Imm Gran Pct Auto 0.2 % (0.0-0.4); Lymphocytes Absolute Auto 0.7 X10*3/uL (1.2-4.9); Lymphocytes Percent Auto 16.7 % (20-40); Mean Corpuscular HGB Conc 33.2 g/dl (31.0-35.0); Mean Corpuscular Hemoglobin 28.3 pg (27.0-33.0); Mean Corpuscular Volume 85.5 fL (80-98); Monocytes Absolute Auto 0.5 X10*3/uL (0.1-1.2); Monocytes Percent Auto 11.2 % (2-11); Neutrophils Absolute Auto 2.9 X10*3/uL (2.0-8.3); Neutrophils Percent Auto 70.9 % (45-73); Platelet Count 208 X10*3/uL (160-400); Red Blood Count 4.48 X10*6/uL (4.20-5.50); Red Cell Distribution Width 16.3 % (11.0-16.0); White Blood Count 4.1 X10*3/uL (4.8-10.8)
[2021-08-07 13:54] LABS: Appearance Urine HAZY; Color Urine YELLOW; Glucose Urine UA NEG (NEG); Leukocyte Esterase Urine NEG (NEG); Nitrite Urine NEG (NEG); PH 7.5 (5.0-8.0); Urine Blood NEG (NEG); Urine Ketones NEG (NEG); Urine Protein NEG (NEG-TRACE)
[2021-08-07 13:55] LABS: UPreg QC Valid YES; Urine Pregnancy NEGATIVE (NEGATIVE)
[2021-08-07] MEDS: 0.9 % Sodium Chloride 1,000 ML 999 ML IVCONT (14:00)
[2021-08-07] MEDS: ondansetron HCL 4 MG/2 ML VIAL IVPUSH (14:01)
[2021-08-07 14:04] LABS: Anion Gap 12 (12-20); Blood Urea Nitrogen 5 mg/dL (9-16); Calcium 9.2 mg/dL (8.4-10.2); Carbon Dioxide 28 mmol/L (22-29); Chloride 101 mmol/L (96-108); Creatinine Clr Calc Pharmacy 117.1; Estimated Glomerular Filt Rate > 60; Glucose Random 93 mg/dL (60-115); Sodium 137 mmol/L (135-145)
[2021-08-07 14:06] LABS: Amphetamine Screen Urine Not Detected (Not Detect); Barbiturates, Urine POSITIVE (Not Detect); Benzodiazepines Screen Urine Not Detected (Not Detect); Cannabinoid Screen Urine POSITIVE (Not Detect); Cocaine Screen Urine Not Detected (Not Detect); Fentanyl, urine POSITIVE (Not Detect); Opiate Screen Urine Not Detected (Not Detect); Phencyclidine Screen Urine Not Detected (Not Detect)
[2021-08-07 14:07] LABS: COVID-19 Test Negative (Negative)
[2021-08-07 14:29] LABS: Ethanol < 10 mg/dL
[2021-08-07 15:52] VITALS: BP 148/99; PULSE 70; RESP 18; TEMP 37.1; O2SAT 99
[2021-08-07 15:53] LABS: Glucose, Whole Blood 83 mg/dL (60-115)
--- NOTE | 2021-08-07 16:00 | PC.NURSE ---
patient refused first dose of librium states she would like to start taking it tomorrow.
== END 2021-08-07 16:01 | disposition home or self-care (01) ==
PROVIDERS: Physician Assistant; Emergency Provider Emergency Medicine; PCP Internal Medicine
DX: R42 Dizziness and giddiness (principal); R11.2 Nausea with vomiting, unspecified; F10.10 Alcohol abuse, uncomplicated; Y90.0 Blood alcohol level of less than 20 mg/100 ml; F12.90 Cannabis use, unspecified, uncomplicated; Z79.899 Other long term (current) drug therapy; Z20.822 Contact with and (suspected) exposure to COVID-19
CPT/HCPCS: 36415; 80048; 80307; 81003; 81025; 82077; 82947; 85025; 87635; 93005; 96361; 96374; 99284; 99285; J2405

== ENCOUNTER 2021-08-20 18:23 | Emergency (ER) | payer OTHER, SELFPAY ==
[2021-08-20 18:30] VITALS: BP 157/104; PULSE 133; RESP 18; TEMP 36.5; O2SAT 98; BMI 25.4
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
[2021-08-20 19:03] VITALS: BP 151/106; PULSE 115; RESP 20; O2SAT 96
[2021-08-20 19:36] LABS: COVID-19 Test Negative (Negative)
--- NOTE | 2021-08-20 19:36 | MHC.CARE ---
Pt was seen by [facility] and evaluated. Pt is currently calm and plan was for pt to be discharged following medical clearance. She is psychiatrically cleared at this time.
--- NOTE | 2021-08-20 20:08 | PC.NURSE ---
PT was cleared from crisis by [facility]. MURRY. PT moved to room 07 in the ED for a pelvic exam due to complaints of vaginal bleeding and a request for STD testing. PT is calm and cooperative.
[2021-08-20] MEDS: 0.9 % Sodium Chloride 500 ML 999 ML IV (20:29)
[2021-08-20 20:30] VITALS: BP 111/78; PULSE 82; RESP 18; TEMP 37; O2SAT 98
[2021-08-20 20:37] LABS: MANUAL DIFF FLAG NO
[2021-08-20 20:38] LABS: Basophils Absolute Auto 0.1 X10*3/uL (0.0-0.2); Basophils Percent Auto 1.2 % (0-2); Hematocrit 40.1 % (37-47); Hemoglobin 13.3 g/dl (12.0-16.0); Imm Gran Abs Auto 0.01 X10*3/uL (0.00-0.03); Imm Gran Pct Auto 0.2 % (0.0-0.4); Lymphocytes Absolute Auto 1.3 X10*3/uL (1.2-4.9); Lymphocytes Percent Auto 26.6 % (20-40); Mean Corpuscular HGB Conc 33.2 g/dl (31.0-35.0); Mean Corpuscular Hemoglobin 28.2 pg (27.0-33.0); Mean Platelet Volume 9.3 fL (9.4-12.3); Monocytes Absolute Auto 0.4 X10*3/uL (0.1-1.2); Monocytes Percent Auto 7.5 % (2-11); Neutrophils Absolute Auto 3.3 X10*3/uL (2.0-8.3); Neutrophils Percent Auto 64.5 % (45-73); Platelet Count 205 X10*3/uL (160-400); Red Blood Count 4.72 X10*6/uL (4.20-5.50)
[2021-08-20 20:53] LABS: Ethanol 372 mg/dL
[2021-08-20 20:59] LABS: Acetaminophen LAB < 1 mcg/mL (<30); Alanine Aminotransferase 31 U/L (0-31); Albumin Level 4.8 g/dL (3.5-5.0); Alkaline Phosphatase 78 U/L (39-117); Anion Gap 14 (12-20); Aspartate Amino Transferase 46 U/L (5-31); Bilirubin Direct 0.3 mg/dL (0.0-0.5); Bilirubin Total 0.6 mg/dL (0.0-1.0); Blood Urea Nitrogen 5 mg/dL (9-16); Calcium 9.4 mg/dL (8.4-10.2); Carbon Dioxide 28 mmol/L (22-29); Chloride 105 mmol/L (96-108); Creatinine Clr Calc Pharmacy 106.5; Estimated Glomerular Filt Rate > 60; Glucose Random 87 mg/dL (60-115); Lipase 48 U/L (8-78); Potassium 4.2 mmol/L (3.3-5.1); Salicylate < 5.0 mg/dL (15-30); Sodium 143 mmol/L (135-145); Total Protein 8.3 g/dL (6.5-8.0)
[2021-08-20] MEDS: cefTRIAXone sodium 250 MG, Lidocaine HCl 1 % MPF 0.9 ML IM (21:19)
[2021-08-20] MEDS: metroNIDAZOLE 500 MG TABLET 2000 MG PO (21:20)
[2021-08-20 21:48] LABS: Appearance Urine CLEAR; Color Urine YELLOW; Glucose Urine UA NEG (NEG); Leukocyte Esterase Urine NEG (NEG); Nitrite Urine NEG (NEG); Specific Gravity - Urine 1.015 (1.005-1.025); UACC Culture Trigger NO; Urine Blood NEG (NEG); Urine Ketones NEG (NEG); Urine Protein 1+ MG/DL (NEG-TRACE)
[2021-08-20 21:49] LABS: UPreg QC Valid YES; Urine Pregnancy NEGATIVE (NEGATIVE)
[2021-08-20 21:57] LABS: Bacteria Urine 1+ /LPF; RBC Urine 0 /HPF (0); Squamous Epithelial Cell Urine TRACE /LPF; WBC Urine 0 /HPF (0-4)
[2021-08-20 22:02] LABS: Amphetamine Screen Urine Not Detected (Not Detect); Barbiturates, Urine POSITIVE (Not Detect); Benzodiazepines Screen Urine POSITIVE (Not Detect); Cannabinoid Screen Urine POSITIVE (Not Detect); Cocaine Screen Urine Not Detected (Not Detect); Fentanyl, urine Not Detected (Not Detect); Opiate Screen Urine Not Detected (Not Detect); Phencyclidine Screen Urine Not Detected (Not Detect)
[2021-08-20] MEDS: Raltegravir Potassium 400 MG TABLET PO (22:16)
[2021-08-20] MEDS: Emtricitabin/Tenofovir 200/300 TABLET 1 TAB PO (22:16)
--- NOTE | 2021-08-20 22:20 | PC.NURSE ---
Pt remains alert and oriented x4, calm and cooperative. Pt denies pain. Pt ambulated and steady on feet. Pt tolerated medications well. Pt ambulated to private car with RN as witness to pt family member driving her home. IV removed, vitals stable.
[2021-08-20 22:21] VITALS: BP 142/74; PULSE 80; RESP 18; TEMP 37; O2SAT 98
[2021-08-21 01:56] LABS: CT PCR NOT DETECTED (Not Detect.); NG PCR NOT DETECTED (Not Detect.)
[2021-08-21 15:18] LABS: BV Int Neg Control Negative (Negative); BV Int Pos Control Positive (Positive)
[2021-08-23 04:27] LABS: HIV AB/AG Nonreactive (Nonreactive); HIV Num 1 0.06 S/CO (0.00-0.99)
[2021-08-26 14:57] LABS: Tetanus Antitoxiod Antibody 3.55 IU/mL
== END 2021-08-20 22:21 | disposition home or self-care (01) ==
PROVIDERS: Emergency Provider Student in an Organized Health Care Education/Training Program
DX: F43.10 Post-traumatic stress disorder, unspecified (principal); F41.1 Generalized anxiety disorder; F43.0 Acute stress reaction; F10.10 Alcohol abuse, uncomplicated; F12.90 Cannabis use, unspecified, uncomplicated; Y90.8 Blood alcohol level of 240 mg/100 ml or more; Z20.822 Contact with and (suspected) exposure to COVID-19; Z79.899 Other long term (current) drug therapy
CPT/HCPCS: 36415; 80048; 80076; 80143; 80179; 80307; 81001; 81025; 82077; 83690; 85025; 86774; 87480; 87491; 87510; 87591; 87635; 87660; 96372; 99284; 99285; J0696

== ENCOUNTER 2021-08-24 18:43 | Emergency (ER) | payer OTHER, SELFPAY ==
[2021-08-24 19:32] VITALS: BP 152/99; PULSE 121; TEMP 36.3; O2SAT 99; BMI 27.4
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
[2021-08-24] MEDS: ondansetron HCL 4 MG/2 ML VIAL IVPUSH (19:59)
[2021-08-24] MEDS: LORazepam 2 MG/ML VIAL IVPUSH (19:59)
[2021-08-24 20:00] LABS: MANUAL DIFF FLAG NO
[2021-08-24 20:02] LABS: Basophils Percent Auto 0.8 % (0-2); Eosinophils Percent Auto 0.2 % (0-4); Hematocrit 38.7 % (37-47); Hemoglobin 13.1 g/dl (12.0-16.0); Lymphocytes Absolute Auto 0.9 X10*3/uL (1.2-4.9); Lymphocytes Percent Auto 17.6 % (20-40); Mean Corpuscular HGB Conc 33.9 g/dl (31.0-35.0); Mean Corpuscular Hemoglobin 28.5 pg (27.0-33.0); Mean Corpuscular Volume 84.1 fL (80-98); Mean Platelet Volume 9.5 fL (9.4-12.3); Monocytes Absolute Auto 0.5 X10*3/uL (0.1-1.2); Monocytes Percent Auto 9.1 % (2-11); Neutrophils Absolute Auto 3.6 X10*3/uL (2.0-8.3); Neutrophils Percent Auto 72.3 % (45-73); Platelet Count 148 X10*3/uL (160-400); Red Cell Distribution Width 15.8 % (11.0-16.0)
[2021-08-24] MEDS: 0.9 % Sodium Chloride 1,000 ML 999 ML IVCONT ×2 (20:04→22:15)
[2021-08-24 20:14] LABS: Ethanol 107 mg/dL
[2021-08-24 20:19] LABS: Alanine Aminotransferase 59 U/L (0-31); Alkaline Phosphatase 83 U/L (39-117); Anion Gap 18 (12-20); Bilirubin Total 0.8 mg/dL (0.0-1.0); Blood Urea Nitrogen 4 mg/dL (9-16); Calcium 9.5 mg/dL (8.4-10.2); Carbon Dioxide 24 mmol/L (22-29); Chloride 101 mmol/L (96-108); Creatinine Clr Calc Pharmacy 118.9; Estimated Glomerular Filt Rate > 60; Glucose Random 82 mg/dL (60-115); Sodium 139 mmol/L (135-145)
[2021-08-24 20:41] VITALS: BP 127/75; PULSE 78; RESP 15; TEMP 37; O2SAT 99
[2021-08-24 21:03] LABS: Albumin Level 4.9 g/dL (3.5-5.0); Aspartate Amino Transferase 100 U/L (5-31); Bilirubin Direct 0.4 mg/dL (0.0-0.5); Total Protein 8.6 g/dL (6.5-8.0)
[2021-08-24 21:30] VITALS: BP 119/82; PULSE 80; RESP 17; TEMP 37.3; O2SAT 99
[2021-08-24 21:39] LABS: Appearance Urine HAZY; Color Urine YELLOW; Glucose Urine UA NEG (NEG); Leukocyte Esterase Urine NEG (NEG); Nitrite Urine NEG (NEG); PH 6.5 (5.0-8.0); UACC Culture Trigger NO; Urine Blood 1+ (NEG); Urine Ketones 15 MG/DL (NEG); Urine Protein TRACE MG/DL (NEG-TRACE)
[2021-08-24 21:41] LABS: UPreg QC Valid YES; Urine Pregnancy NEGATIVE (NEGATIVE)
[2021-08-24 21:45] LABS: Mucus Urine TRACE /LPF; Squamous Epithelial Cell Urine 2+ /LPF
[2021-08-24 21:46] LABS: Bacteria Urine TRACE /LPF; WBC Urine 0-2 /HPF (0-4)
[2021-08-24 21:51] LABS: Amphetamine Screen Urine Not Detected (Not Detect); Barbiturates, Urine Not Detected (Not Detect); Benzodiazepines Screen Urine Not Detected (Not Detect); Cannabinoid Screen Urine Not Detected (Not Detect); Cocaine Screen Urine Not Detected (Not Detect); Fentanyl, urine POSITIVE (Not Detect); Opiate Screen Urine Not Detected (Not Detect); Phencyclidine Screen Urine Not Detected (Not Detect)
[2021-08-24] MEDS: chlordiazePOXIDE HCl 25 MG CAPSULE PO (22:13)
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
[2021-08-24 23:00] VITALS: BP 128/86; PULSE 92; RESP 16; O2SAT 100
== END 2021-08-24 23:04 | disposition home or self-care (01) ==
PROVIDERS: Emergency Medicine; Emergency Provider Emergency Medicine Emergency Medical Services; PCP Internal Medicine
DX: S30.0XXA Contusion of lower back and pelvis, initial encounter (principal); S09.90XA Unspecified injury of head, initial encounter; S49.90XA Unspecified injury of shoulder and upper arm, unspecified arm, initial encounter; F10.139 Alcohol abuse with withdrawal, unspecified; R11.0 Nausea; F12.90 Cannabis use, unspecified, uncomplicated; Y04.8XXA Assault by other bodily force, initial encounter; Y93.9 Activity, unspecified; Y92.9 Unspecified place or not applicable; Y99.9 Unspecified external cause status; Y90.5 Blood alcohol level of 100-119 mg/100 ml; Z79.899 Other long term (current) drug therapy
CPT/HCPCS: 36415; 80053; 80307; 81001; 81025; 82077; 82248; 85025; 96361; 96374; 96375; 99284; J2060; J2405

== ENCOUNTER 2021-08-27 05:58 | Emergency (ER) | payer OTHER, SELFPAY ==
--- NOTE | ~2021-08-27 | CT_ITS ---
EXAMINATION: CT HEAD WITHOUT CONTRAST CLINICAL INFORMATION: Head injury COMPARISON: Previous head CT October 2020 TECHNIQUE: Contiguous axial imaging was performed from the skull base to vertex without intravenous administration of contrast. This CT examination was performed using dose optimization techniques as appropriate, variously including the following: *Automated exposure control *Adjustment of mA and/or kV according to patient size (this includes techniques or standardized protocols for targeted exams where dose is matched to indication/reason for exam; i.e. extremities or head) *Use of iterative reconstruction technique DLP: 671 mGy-cm FINDINGS: There is no evidence of acute intracranial hemorrhage or territorial infarction. No abnormal mass effect or midline shift is seen. Ugarte to white matter differentiation is well preserved. No extra-axial fluid collections are identified. The ventricles are normal in size. There is no abnormal attenuation within the brain parenchyma. The osseous structures and soft tissues are normal. The mastoid air cells and visualized portions of the paranasal sinuses are well aerated. CT/CT head/brain wo con IMPRESSION: No acute intracranial pathology.
[2021-08-27 06:03] VITALS: BP 148/94; PULSE 118; O2SAT 98
[2021-08-27 06:07] VITALS: BP 127/77; PULSE 80; RESP 20; TEMP 37; O2SAT 98; BMI 28.3
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
[2021-08-27 07:00] LABS: MANUAL DIFF FLAG NO
[2021-08-27 07:03] LABS: Basophils Percent Auto 1.1 % (0-2); Eosinophils Percent Auto 0.3 % (0-4); Hemoglobin 13.9 g/dl (12.0-16.0); Lymphocytes Absolute Auto 0.9 X10*3/uL (1.2-4.9); Lymphocytes Percent Auto 26.3 % (20-40); Mean Corpuscular HGB Conc 33.1 g/dl (31.0-35.0); Mean Corpuscular Hemoglobin 28.3 pg (27.0-33.0); Mean Corpuscular Volume 85.5 fL (80-98); Mean Platelet Volume 10.8 fL (9.4-12.3); Monocytes Absolute Auto 0.4 X10*3/uL (0.1-1.2); Monocytes Percent Auto 12.6 % (2-11); Neutrophils Absolute Auto 2.1 X10*3/uL (2.0-8.3); Neutrophils Percent Auto 59.7 % (45-73); Platelet Count 167 X10*3/uL (160-400); Red Blood Count 4.91 X10*6/uL (4.20-5.50); Red Cell Distribution Width 16.1 % (11.0-16.0); White Blood Count 3.5 X10*3/uL (4.8-10.8)
[2021-08-27 07:24] LABS: Anion Gap 16 (12-20); Blood Urea Nitrogen 6 mg/dL (9-16); Calcium 8.6 mg/dL (8.4-10.2); Carbon Dioxide 22 mmol/L (22-29); Chloride 110 mmol/L (96-108); Creatinine Clr Calc Pharmacy 120.8; Estimated Glomerular Filt Rate > 60; Ethanol 394 mg/dL; Glucose Random 117 mg/dL (60-115); Potassium 3.9 mmol/L (3.3-5.1); Sodium 144 mmol/L (135-145)
[2021-08-27] MEDS: LORazepam 2 MG/ML VIAL 1 MG IVPUSH (07:27)
[2021-08-27] MEDS: ondansetron HCL 4 MG/2 ML VIAL IVPUSH (07:27)
[2021-08-27] MEDS: 0.9 % Sodium Chloride 1,000 ML 999 ML IV (07:28)
[2021-08-27 07:30] VITALS: BP 85/56; PULSE 63; RESP 18; TEMP 37.1; O2SAT 96
[2021-08-27 07:32] LABS: UPreg QC Valid YES; Urine Pregnancy NEGATIVE (NEGATIVE)
[2021-08-27 07:33] VITALS: BP 93/53
[2021-08-27 07:51] LABS: Amphetamine Screen Urine Not Detected (Not Detect); Barbiturates, Urine Not Detected (Not Detect); Benzodiazepines Screen Urine POSITIVE (Not Detect); Cannabinoid Screen Urine Not Detected (Not Detect); Cocaine Screen Urine Not Detected (Not Detect); Fentanyl, urine Not Detected (Not Detect); Opiate Screen Urine Not Detected (Not Detect); Phencyclidine Screen Urine Not Detected (Not Detect)
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
[2021-08-27 09:09] VITALS: BP 102/57; PULSE 92; RESP 14; O2SAT 97
--- NOTE | 2021-08-27 11:32 | MHC.RECOVSUP ---
? Reason for consult:Continuity of care o Current location: [address] [place] [address] o Identified substance use concern:ETOH - Withdrawal - Seeking ATS (detox) - Support ? Intervention: o ATS bed search started/completed/in proces o Community resources provided o Harm reduction discussion ? Plan: o Referral to [facility] o Patient to follow up with [facility] after discharge ? Additional information: Pt. refuses detox, pt. given community resources.
--- NOTE | 2021-08-27 11:58 | PC.NURSE ---
1130. pt awake, axox3. no tremors, steady on feet. clear speech. eager to leave.
== END 2021-08-27 12:13 | disposition home or self-care (01) ==
PROVIDERS: Emergency Provider Emergency Medicine Emergency Medical Services
DX: S09.90XA Unspecified injury of head, initial encounter (principal); T14.8XXA Other injury of unspecified body region, initial encounter; F10.10 Alcohol abuse, uncomplicated; Y90.8 Blood alcohol level of 240 mg/100 ml or more; Y04.8XXA Assault by other bodily force, initial encounter; Y93.9 Activity, unspecified; Y92.9 Unspecified place or not applicable; Y99.9 Unspecified external cause status
CPT/HCPCS: 36415; 70450; 80048; 80307; 81025; 82077; 85025; 96361; 96374; 96375; 99284; 99285; J2060; J2405

== ENCOUNTER 2021-09-21 16:11 | Outpatient (REF) | payer OTHER, SELFPAY ==
[2021-09-21 16:28] LABS: MANUAL DIFF FLAG NO
[2021-09-21 16:35] LABS: Basophils Percent Auto 0.5 % (0-2); Eosinophils Percent Auto 0.5 % (0-4); Hematocrit 41.5 % (37.0-47.0); Hemoglobin 13.4 g/dl (12.0-16.0); Imm Gran Abs Auto 0.02 X10*3/uL (0.00-0.03); Imm Gran Pct Auto 0.3 % (0.0-0.4); Lymphocytes Absolute Auto 1.7 X10*3/uL (1.2-4.9); Lymphocytes Percent Auto 23.4 % (20-40); Mean Corpuscular HGB Conc 32.3 g/dl (31.0-35.0); Mean Corpuscular Hemoglobin 28.4 pg (27.0-33.0); Mean Corpuscular Volume 87.9 fL (80.0-98.0); Mean Platelet Volume 10.2 fL (9.4-12.3); Monocytes Absolute Auto 0.7 X10*3/uL (0.1-1.2); Monocytes Percent Auto 8.9 % (2-11); Neutrophils Absolute Auto 4.94 x10*3/uL (2.0-8.3); Neutrophils Percent Auto 66.4 % (45-73); Platelet Count 300 X10*3/uL (160-400); Red Blood Count 4.72 X10*6/uL (4.20-5.50); Red Cell Distribution Width 14.1 % (11.0-16.0); White Blood Count 7.4 X10*3/uL (4.8-10.8)
[2021-09-21 16:58] LABS: Alanine Aminotransferase 24 U/L (0-31); Albumin Level 4.3 g/dL (3.5-5.0); Alkaline Phosphatase 53 U/L (39-117); Anion Gap 12 (12-20); Aspartate Amino Transferase 27 U/L (5-31); Bilirubin Total 0.4 mg/dL (0.0-1.0); Blood Urea Nitrogen 10 mg/dL (9-16); Calcium 9.5 mg/dL (8.4-10.2); Carbon Dioxide 25 mmol/L (22-29); Chloride 105 mmol/L (96-108); Estimated Glomerular Filt Rate > 60; Glucose Random 86 mg/dL (60-115); Sodium 138 mmol/L (135-145); Total Protein 7.2 g/dL (6.5-8.0)
[2021-09-21 17:41] LABS: Amphetamine Screen Urine Not Detected (Not Detect); Barbiturates, Urine Not Detected (Not Detect); Benzodiazepines Screen Urine Not Detected (Not Detect); Cannabinoid Screen Urine Not Detected (Not Detect); Cocaine Screen Urine Not Detected (Not Detect); Fentanyl, urine Not Detected (Not Detect); Opiate Screen Urine Not Detected (Not Detect); Phencyclidine Screen Urine Not Detected (Not Detect)
== END 2021-09-21 16:12 | disposition home or self-care (01) ==
LOC: HO.LAB 16:11
PROVIDERS: PCP Internal Medicine; Visit Provider Internal Medicine
DX: R79.89 Other specified abnormal findings of blood chemistry (principal)
CPT/HCPCS: 80053; 80307; 85025

== ENCOUNTER 2021-10-16 02:28 | Emergency (ER) | payer OTHER, SELFPAY ==
[2021-10-16 02:37] VITALS: BP 127/89; BP 134/66; PULSE 115; PULSE 70; RESP 15; TEMP 36.6; O2SAT 98; BMI 22.4
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
[2021-10-16 04:00] VITALS: BP 125/68; PULSE 115; RESP 15; TEMP 36.6
[2021-10-16 04:14] LABS: MANUAL DIFF FLAG NO
[2021-10-16 04:15] LABS: Basophils Percent Auto 0.2 % (0-2); Hematocrit 42.5 % (37.0-47.0); Hemoglobin 14.2 g/dl (12.0-16.0); Imm Gran Abs Auto 0.01 X10*3/uL (0.00-0.03); Imm Gran Pct Auto 0.2 % (0.0-0.4); Lymphocytes Absolute Auto 1.4 X10*3/uL (1.2-4.9); Lymphocytes Percent Auto 29.4 % (20-40); Mean Corpuscular HGB Conc 33.4 g/dl (31.0-35.0); Mean Corpuscular Hemoglobin 28.3 pg (27.0-33.0); Mean Corpuscular Volume 84.8 fL (80.0-98.0); Mean Platelet Volume 9.6 fL (9.4-12.3); Monocytes Absolute Auto 0.4 X10*3/uL (0.1-1.2); Monocytes Percent Auto 8.6 % (2-11); Neutrophils Percent Auto 61.6 % (45-73); Platelet Count 188 X10*3/uL (160-400); Red Blood Count 5.01 X10*6/uL (4.20-5.50); Red Cell Distribution Width 13.4 % (11.0-16.0); White Blood Count 4.9 X10*3/uL (4.8-10.8)
[2021-10-16] MEDS: 0.9 % Sodium Chloride 1,000 ML 999 ML IV (04:18)
[2021-10-16 04:25] LABS: Ethanol 478 mg/dL
[2021-10-16 04:29] LABS: Alanine Aminotransferase 17 U/L (0-31); Albumin Level 4.5 g/dL (3.5-5.0); Alkaline Phosphatase 74 U/L (39-117); Anion Gap 17 (12-20); Aspartate Amino Transferase 31 U/L (5-31); Bilirubin Total 0.2 mg/dL (0.0-1.0); Blood Urea Nitrogen 7 mg/dL (9-16); Carbon Dioxide 23 mmol/L (22-29); Chloride 110 mmol/L (96-108); Creatinine Clr Calc Pharmacy 98.6; Estimated Glomerular Filt Rate > 60; Glucose Random 100 mg/dL (60-115); Potassium 4.1 mmol/L (3.3-5.1); Sodium 146 mmol/L (135-145); Total Protein 8.1 g/dL (6.5-8.0)
[2021-10-16 04:35] LABS: HCG Quantitative < 2 mIU/mL
[2021-10-16 04:36] LABS: Appearance Urine CLEAR; Color Urine YELLOW; Glucose Urine UA NEG (NEG); Leukocyte Esterase Urine NEG (NEG); Nitrite Urine NEG (NEG); Specific Gravity - Urine <= 1.005 (1.005-1.025); Urine Blood NEG (NEG); Urine Ketones NEG (NEG); Urine Protein NEG (NEG-TRACE)
[2021-10-16 04:50] LABS: Amphetamine Screen Urine Not Detected (Not Detect); Barbiturates, Urine Not Detected (Not Detect); Benzodiazepines Screen Urine Not Detected (Not Detect); Cannabinoid Screen Urine Not Detected (Not Detect); Cocaine Screen Urine Not Detected (Not Detect); Fentanyl, urine Not Detected (Not Detect); Opiate Screen Urine Not Detected (Not Detect); Phencyclidine Screen Urine Not Detected (Not Detect)
[2021-10-16] MEDS: chlordiazePOXIDE HCl 25 MG CAPSULE PO (04:53)
--- NOTE | 2021-10-16 05:03 | PC.NURSE ---
Patient states that she has a seizure history when she withdraws. Patient asking for medication to help prevent her withdrawal symptoms. However, Ethanol level is 487 at this time.
[2021-10-16 06:00] VITALS: RESP 15; O2SAT 98
[2021-10-16 09:20] VITALS: BP 93/60; PULSE 113; RESP 14; TEMP 36.7; O2SAT 95
== END 2021-10-16 11:41 | disposition home or self-care (01) ==
PROVIDERS: Emergency Provider Student in an Organized Health Care Education/Training Program
DX: F10.220 Alcohol dependence with intoxication, uncomplicated (principal); Y90.8 Blood alcohol level of 240 mg/100 ml or more; F41.9 Anxiety disorder, unspecified; F33.9 Major depressive disorder, recurrent, unspecified; F43.12 Post-traumatic stress disorder, chronic; Z79.899 Other long term (current) drug therapy
CPT/HCPCS: 36415; 80053; 80307; 81003; 82077; 84702; 85025; 96360; 99285

== ENCOUNTER 2021-10-18 16:05 | Outpatient (REF) | payer OTHER, SELFPAY ==
[2021-10-18 18:20] LABS: Appearance Urine CLEAR; Color Urine STRAW; Glucose Urine UA NEG (NEG); Leukocyte Esterase Urine 1+ (NEG); Nitrite Urine NEG (NEG); Specific Gravity - Urine <= 1.005 (1.005-1.025); Urine Blood 1+ (NEG); Urine Ketones NEG (NEG); Urine Protein NEG (NEG-TRACE)
[2021-10-18 18:28] LABS: Bacteria Urine 1+ /LPF; RBC Urine 0 /HPF (0); Squamous Epithelial Cell Urine 1+ /LPF; WBC Urine 0 /HPF (0-4)
[2021-10-18 18:34] LABS: Anion Gap 18 (12-20); Blood Urea Nitrogen 5 mg/dL (9-16); Calcium 9.3 mg/dL (8.4-10.2); Carbon Dioxide 26 mmol/L (22-29); Chloride 99 mmol/L (96-108); Estimated Glomerular Filt Rate > 60; Glucose Random 69 mg/dL (60-115); Potassium 4.3 mmol/L (3.3-5.1); Sodium 139 mmol/L (135-145)
== END 2021-10-18 16:06 | disposition home or self-care (01) ==
LOC: HO.LAB 16:05
PROVIDERS: PCP Internal Medicine; Visit Provider Internal Medicine
DX: R10.2 Pelvic and perineal pain (principal); R30.0 Dysuria; K62.5 Hemorrhage of anus and rectum
CPT/HCPCS: 36415; 80048; 81001; 86140; 87086; 87088; 87186

== ENCOUNTER 2021-11-10 14:59 | Outpatient (REF) | payer OTHER, SELFPAY ==
--- NOTE | ~2021-11-10 | CT_ITS ---
EXAMINATION: CT ABDOMEN AND PELVIS WITHOUT CONTRAST CLINICAL INFORMATION: Left lower quadrant pain COMPARISON: None TECHNIQUE: Multidetector volumetric imaging was performed from the superior aspect of the liver through the pubic symphysis. Sagittal and coronal reformatted images were obtained on the technologist's workstation. This CT examination was performed using dose optimization techniques as appropriate, variously including the following: *Automated exposure control *Adjustment of mA and/or kV according to patient size (this includes techniques or standardized protocols for targeted exams where dose is matched to indication/reason for exam; i.e. extremities or head) *Use of iterative reconstruction technique DLP: 392 mGy-cm FINDINGS: LUNG BASES: The visualized lung bases are unremarkable. LIVER, GALLBLADDER, AND BILIARY TREE: The liver is normal in size, shape, and attenuation. No focal hepatic lesion or biliary ductal dilatation is present. The gallbladder is unremarkable with no evidence of radiopaque gallstones, gallbladder wall thickening, or obvious pericholecystic inflammatory changes. PANCREAS: Unremarkable. SPLEEN: Unremarkable. ADRENAL GLANDS: Unremarkable. KIDNEYS AND URETERS: The kidneys are normal in size, shape, and attenuation. No hydronephrosis, hydroureter, or calculi seen. No perinephric stranding. BLADDER: Unremarkable. GASTROINTESTINAL TRACT: The small and large bowel are unremarkable. The appendix is unremarkable. Stomach is unremarkable. ABDOMINAL WALL: No significant hernia is appreciated. LYMPH NODES: Normal. VASCULAR: Unremarkable. PELVIC VISCERA: The left ovary appears slightly prominent measuring 3.5 x 4 x 3cm. Uterus and right ovary are unremarkable. There is a tampon in place. OSSEOUS STRUCTURES: Unremarkable. CT/CT abdomen pelvis wo con IMPRESSION: Prominent left ovary. This could be better evaluated with pelvic ultrasound if clinically indicated. Otherwise unremarkable exam. Fleischner guidelines were followed.
== END 2021-11-10 15:00 | disposition home or self-care (01) ==
LOC: HO.CT 14:59
PROVIDERS: PCP Internal Medicine; Visit Provider Internal Medicine
DX: R10.32 Left lower quadrant pain (principal)
CPT/HCPCS: 74176

== ENCOUNTER 2021-11-11 21:27 | Emergency (ER) | payer OTHER, SELFPAY ==
[2021-11-11 21:48] VITALS: BP 145/101; PULSE 99; RESP 16; TEMP 37; O2SAT 100; BMI 25.7
--- NOTE | 2021-11-11 22:52 | ED.ANIMALBIT ---
HPI - Animal Bite General Chief Complaint: Animal Bite Stated Complaint: cat bite Source: patient Mode of arrival: ambulatory Limitations: no limitations History of Present Illness HPI narrative: 30-year-old female presents with cat bite and scratch by her own animal. complaint: animal bite Onset (ago): hour(s) (Within the hour of arrival) Animal: cat Description of animal: household pet, immunizations UTD and appeared well Mechanism: bite and scratch Location - Extremities: left: lower leg Pain description: burning Severity scale (1-10): 4 Context: provoked Associated symptoms: none Related Data Patient tetanus UTD: Yes Home Medications Medication Instructions Recorded Confirmed multivitamin 1 tab PO DAILY 06/28/21 06/28/21 Previous Rx's Medication Instructions Recorded hydroxyzine HCl 25 mg tablet 25 mg PO BID PRN 30 Days #60 tab 07/06/21 trazodone 100 mg tablet 100 mg PO BEDTIME PRN 30 Days #30 07/06/21 tab venlafaxine 150 mg 150 mg PO DAILY 30 Days #30 cap 07/06/21 capsule,extended release 24 hr chlordiazepoxide HCl 25 mg capsule 25 mg PO Q8H PRN #4 cap 08/07/21 emtricitabine 200 mg-tenofovir 1 tab PO DAILY #28 tab 08/20/21 disoproxil fumarate 300 mg tablet (Truvada) raltegravir 400 mg tablet 400 mg PO BID #56 tab 08/20/21 metronidazole 500 mg tablet 500 mg PO BID 10 Days #20 tab 08/24/21 amoxicillin 875 mg-potassium 1 tab PO Q12H 10 Days #20 tab 11/11/21 clavulanate 125 mg tablet (Augmentin) Allergies Allergy/AdvReac Type Severity Reaction Status Date / Time No Known Allergies Allergy Verified 11/11/21 23:16 [No Known Allergies*] Review of Systems Review of Systems: Constitutional: No Fever, No Chills ENT/Mouth: No Ear Pain, No Hoarseness, No sore throat Eyes: No Eye Pain, No Swelling, No Redness, No Foreign Body Cardiovascular: No Chest Pain, No SOB Respiratory: No Cough, No Dyspnea Gastrointestinal: No Nausea, No Vomiting, No Diarrhea, No abdominal Pain Genitourinary: No Dysuria, No Hematuria Musculoskeletal: positive left calf pain, No Myalgias, No Joint Swelling Skin: Positive bite and Scratch calf, No Skin lacerations, No rash Neuro: No Weakness, No Numbness, No Paresthesias, No Loss of Consciousness, No Dizziness, No Headache Psych: No Anxiety/Panic, No Depression Heme/Lymph: no easy bruising, no Lymphadenopathy Endocrine: No Polyuria, No Polydipsia Yes all other systems are reviewed and are negative [facility] Past Medical History Attestation statement: The following information was validated with the patient. Source: old records reviewed Medical History Alcohol abuse with withdrawal delirium Alcohol use disorder Alcohol withdrawal delirium Alcohol withdrawal seizure Alcoholism Anxiety Bulimia Chronic post-traumatic stress disorder (PTSD) Depression SANDY (generalized anxiety disorder) MDD (major depressive disorder), recurrent episode, moderate MDD (major depressive disorder), recurrent episode, severe Panic attack Family History Family History Brother Substance abuse Social History Social History Household Members: Family Housing: Apartment Do you presently have visiting nurse or other home services: No Alcohol intake: current Alcohol intake frequency: 3 or more drinks per day Alcohol type: beer Patient Tobacco Use Status: Never used Tobacco e-Cigarette/Vaping Use: Never Used Second Hand Smoke Exposure: No Substance Use Type: Marijuana Advance Directives: No Advance Directives Information Provided: Yes Patient : No service: No Current occupational status: unemployed Sexual orientation: Straight/Heterosexual Physical Exam Vital Signs: Vital Signs: Last Vital Signs Temp 98.6 F 11/11/21 21:48 Pulse 99 11/11/21 21:48 Resp 16 11/11/21 21:48 BP 145/101 H 11/11/21 21:48 Pulse Ox 100 11/11/21 21:48 BMI result Body Mass Index 25.7 Appearance: Alert. Oriented X3. No acute distress. Eyes: Pupils equal, round and reactive to light. ENT: Pharynx normal. Neck: Normal inspection. Neck supple. CVS: Normal heart rate and rhythm. Pulses normal. Respiratory: No respiratory distress. Breath sounds normal. Abdomen: Soft and nontender. Skin: 7 cm superficial scratch to the left calf, puncture wounds consistent with cat bite. Skin warm and dry. Normal skin color. Normal skin turgor. Extremities: No lower extremity edema. Gait well-balanced well coordinated. Neuro: No motor deficit. No sensory deficit. Cranial nerves 2-12 intact. Course Course Course Narrative: 30-year-old female presents with cat bite and scratch to the left lower extremity. cat has been properly vaccinated up until a year ago. This is an indoor cat and has no rabies exposure. Patient believes that her Tdap vaccine is up-to-date. Will treat with Augmentin. Patient verbalized understanding of and agrees plan of care discharge home. MDM - Animal Bite Differential Diagnosis Differential diagnosis: Likely cat bite Medical Records Attestation: I reviewed the patient's medical records. Discharge Plan Discharge Clinical Impression: Cat scratch Cat bite Qualifiers: Encounter type: initial encounter Qualified Code(s): W55.01XA - Bitten by cat, initial encounter Patient Disposition: Home, Self-Care Instructions: Animal Bite (ED) Additional Instructions: You were evaluated for cat bite and scratch from your own animal. Please take Augmentin twice a day for the next 10 days. Follow-up with primary care physician as needed. Thank you for choosing this emergency department for evaluation. Please follow-up with primary care physician as needed. Return to the emergency department for any new, concerning, or worsening symptoms. Prescriptions: New amoxicillin-pot clavulanate [Augmentin] 875-125 mg tablet 1 tab PO Q12H 10 Days Qty: 20 RF: 0 No Action chlordiazepoxide HCl 25 mg capsule 25 mg PO Q8H PRN (Reason: alcohol withdrawal) Qty: 4 RF: 0 metronidazole 500 mg tablet 500 mg PO BID 10 Days Qty: 20 RF: 0 multivitamin Tablet 1 tab PO DAILY RF: 0 venlafaxine 150 mg Capsule,Extended Release 24hr 150 mg PO DAILY 30 Days Qty: 30 RF: 0 trazodone 100 mg Tablet 100 mg PO BEDTIME PRN (Reason: insomnia) 30 Days Qty: 30 RF: 0 hydroxyzine HCl 25 mg Tablet 25 mg PO BID PRN (Reason: Anxiety) 30 Days Qty: 60 RF: 0 raltegravir 400 mg tablet 400 mg PO BID Qty: 56 RF: 0 emtricitabine-tenofovir (TDF) [Truvada] 200-300 mg tablet 1 tab PO DAILY Qty: 28 RF: 0 Interventions: ED Discharge Assessment Last Done: 11/12/21 00:09 Discharge Date/Time: 11/12/21 00:10
[2021-11-11] MEDS: Amoxicillin/Potassium Clav 875 MG TABLET PO (23:22)
== END 2021-11-12 00:10 | disposition home or self-care (01) ==
PROVIDERS: Emergency Provider Internal Medicine; PCP Internal Medicine
DX: S80.812A Abrasion, left lower leg, initial encounter (principal); W55.03XA Scratched by cat, initial encounter; Y93.9 Activity, unspecified; Y92.009 Unspecified place in unspecified non-institutional (private) residence as the place of occurrence of the external cause; Y99.9 Unspecified external cause status
CPT/HCPCS: 99283

== ENCOUNTER 2021-11-17 22:48 | Emergency (ER) | payer OTHER, SELFPAY ==
--- NOTE | ~2021-11-17 | XR_ITS ---
EXAMINATION: XR LUMBOSACRAL SPINE CLINICAL INFORMATION: Low back pain status post injury at gym COMPARISON: CT abdomen pelvis 11/10/2021 TECHNIQUE: Three views of the lumbosacral spine. FINDINGS: The vertebral bodies and posterior elements are normal. There is minimal scoliosis convex to the left which could even be positional. The disc spaces are preserved and the vertebral alignment is normal. There is spina bifida occulta at L5. The paraspinal soft tissues are normal. XR/XR lumbar spine 2-3V IMPRESSION: Unremarkable examination.
[2021-11-17 22:54] VITALS: BP 127/81; PULSE 100; RESP 16; TEMP 35.7; O2SAT 98; BMI 25.7
--- NOTE | 2021-11-18 03:32 | ED.BACK ---
HPI - Back Pain/Injury General Chief Complaint: Back Pain/Injury Stated Complaint: lower back pain Time Seen by Provider: 11/18/21 03:32 Source: patient Limitations: no limitations History of Present Illness HPI Narrative: This is a 31-year-old female who was at the gym yesterday (earlier today) when she was racking some weights and felt a strain on the right side of her lower back. Pain radiates down toward her buttock. She denies any numbness or weakness in her legs. She notes pain is worse with movement or trying to set up. She denies any abdominal pain. She denies any prior history of back problems. She does have history of polysubstance abuse, anxiety, PTSD Related Data Home Medications Medication Instructions Recorded Confirmed multivitamin 1 tab PO DAILY 06/28/21 06/28/21 Previous Rx's Medication Instructions Recorded hydroxyzine HCl 25 mg tablet 25 mg PO BID PRN 30 Days #60 tab 07/06/21 trazodone 100 mg tablet 100 mg PO BEDTIME PRN 30 Days #30 07/06/21 tab venlafaxine 150 mg 150 mg PO DAILY 30 Days #30 cap 07/06/21 capsule,extended release 24 hr chlordiazepoxide HCl 25 mg capsule 25 mg PO Q8H PRN #4 cap 08/07/21 emtricitabine 200 mg-tenofovir 1 tab PO DAILY #28 tab 08/20/21 disoproxil fumarate 300 mg tablet (Truvada) raltegravir 400 mg tablet 400 mg PO BID #56 tab 08/20/21 metronidazole 500 mg tablet 500 mg PO BID 10 Days #20 tab 08/24/21 amoxicillin 875 mg-potassium 1 tab PO Q12H 10 Days #20 tab 11/11/21 clavulanate 125 mg tablet (Augmentin) ibuprofen 800 mg tablet 800 mg PO Q8H PRN #30 tab 11/18/21 methocarbamol 750 mg tablet 750 mg PO QID #30 tab 11/18/21 Allergies Allergy/AdvReac Type Severity Reaction Status Date / Time No Known Allergies Allergy Verified 11/11/21 23:16 [No Known Allergies*] Review of Systems Review of Systems: Yes all other systems are reviewed and are negative Neurologic: Denies Sensory deficit (Neuro) PMFSH Past Medical History Medical History Alcohol abuse with withdrawal delirium Alcohol use disorder Alcohol withdrawal delirium Alcohol withdrawal seizure Alcoholism Anxiety Bulimia Chronic post-traumatic stress disorder (PTSD) Depression SANDY (generalized anxiety disorder) MDD (major depressive disorder), recurrent episode, moderate MDD (major depressive disorder), recurrent episode, severe Panic attack Family History Family History Brother Substance abuse Social History Social History Household Members: Family Housing: Apartment Do you presently have visiting nurse or other home services: No Alcohol intake: current Alcohol intake frequency: 3 or more drinks per day Alcohol type: beer Patient Tobacco Use Status: Never used Tobacco e-Cigarette/Vaping Use: Never Used Second Hand Smoke Exposure: No Substance Use Type: Marijuana Advance Directives: No Advance Directives Information Provided: Yes Patient : No service: No Current occupational status: unemployed Sexual orientation: Straight/Heterosexual Physical Exam Vital Signs: Vital Signs: Last Vital Signs Temp 96.3 F L 11/17/21 22:54 Pulse 100 11/17/21 22:54 Resp 16 11/17/21 22:54 BP 127/81 11/17/21 22:54 Pulse Ox 98 11/17/21 22:54 BMI result Body Mass Index 25.7 Const: General: cooperative, no acute distress and alert Orientation/consciousness: patient oriented x3 HENMT: Head: Yes normal to inspection Eyes: General: appearance normal, both eyes and all related structures Eyelids: Yes eyelids normal Conjunctivae: conjunctivae normal Pupils: Equal, round and reactive pupils present Neck: Neck: Yes normal visual inspection and Yes supple Chest: Chest palpation & inspection: normal inspection of the chest Resp: Effort & Inspection: normal respiratory effort Auscultation: clear to auscultation bilaterally Cardio: Rate: regular rate Rhythm: regular rhythm Heart sounds: S1 normal heart sound present, S2 normal heart sound present, no gallops, no murmurs and no rubs GI: Palpation (GI): Soft to palpation, nontender and Other GI palpation findings present (Non-distended) Auscultation: normal bowel sounds Back/Spine/Pelvis: Other: No spinal tenderness. Minor tenderness paraspinally right lumbar back. Straight leg test negative bilaterally. Skin: General skin exam: no rashes or lesions noted Neuro: General: patient oriented x3, no focal motor deficits and CN's II-XI intact bilaterally Cranial nerves: Yes Equal, round and reactive pupils present Cognition (Neuro): normal cognition Motor exam (neuro): 5/5 motor strength present throughout Sensory Exam: No Sensory deficit (Neuro) Extrem: General: Yes normal to inspection and Yes no pedal edema Psych: Appearance: grossly normal Affect: normal affect MDM - Back Pain/Injury MDM Narrative Medical decision making narrative: Patient with history of substance abuse, complains of an acute back injury which happened at the gym when she was racking await. Patient without significant back tenderness, negative straight leg test bilaterally, no lower extremity neuro symptoms. Patient was treated with Toradol IM, Valium 5 mg p.o.. She is being prescribed ibuprofen and Robaxin. Imaging Data Lumbosacral spine x-ray: Radiologist's impression: MPRESSION: Unremarkable examination. Discharge Plan Discharge Clinical Impression: Low back strain Patient Disposition: Home, Self-Care Instructions: Acute Low Back Pain (ED) Additional Instructions: Use ibuprofen and Robaxin as prescribed. Use an ice pack off and on. Try to rest her back the next 2-3 days. Return for any new or worsened symptoms. Prescriptions: New ibuprofen 800 mg tablet 800 mg PO Q8H PRN (Reason: pain) Qty: 30 RF: 0 methocarbamol 750 mg tablet 750 mg PO QID Qty: 30 RF: 0 No Action chlordiazepoxide HCl 25 mg capsule 25 mg PO Q8H PRN (Reason: alcohol withdrawal) Qty: 4 RF: 0 metronidazole 500 mg tablet 500 mg PO BID 10 Days Qty: 20 RF: 0 multivitamin Tablet 1 tab PO DAILY RF: 0 venlafaxine 150 mg Capsule,Extended Release 24hr 150 mg PO DAILY 30 Days Qty: 30 RF: 0 trazodone 100 mg Tablet 100 mg PO BEDTIME PRN (Reason: insomnia) 30 Days Qty: 30 RF: 0 hydroxyzine HCl 25 mg Tablet 25 mg PO BID PRN (Reason: Anxiety) 30 Days Qty: 60 RF: 0 raltegravir 400 mg tablet 400 mg PO BID Qty: 56 RF: 0 emtricitabine-tenofovir (TDF) [Truvada] 200-300 mg tablet 1 tab PO DAILY Qty: 28 RF: 0 amoxicillin-pot clavulanate [Augmentin] 875-125 mg tablet 1 tab PO Q12H 10 Days Qty: 20 RF: 0 Interventions: ED Discharge Assessment Last Done: 11/18/21 03:56 Discharge Date/Time: 11/18/21 03:57
[2021-11-18] MEDS: Ketorolac Tromethamine 30 MG/ML VIAL IM (03:53)
[2021-11-18] MEDS: diazePAM 5 MG TABLET PO (03:53)
== END 2021-11-18 03:57 | disposition home or self-care (01) ==
PROVIDERS: Emergency Provider Emergency Medicine; PCP Internal Medicine
DX: M54.50 Low back pain, unspecified (principal); R10.9 Unspecified abdominal pain; F12.90 Cannabis use, unspecified, uncomplicated; Z79.899 Other long term (current) drug therapy
CPT/HCPCS: 72100; 96372; 99283; 99284; J1885

== ENCOUNTER 2021-12-17 10:11 | Emergency (ER) | payer OTHER, SELFPAY ==
[2021-12-17 10:13] VITALS: BP 149/89; PULSE 103; RESP 18; TEMP 37.1; O2SAT 98; BMI 26.5
[2021-12-17 10:30] VITALS: BP 145/99; PULSE 95; RESP 16; TEMP 37.1; O2SAT 96
[2021-12-17 10:36] LABS: Appearance Urine CLEAR; Color Urine STRAW; Glucose Urine UA NEG (NEG); Leukocyte Esterase Urine NEG (NEG); Nitrite Urine NEG (NEG); Specific Gravity - Urine <= 1.005 (1.005-1.025); Urine Blood NEG (NEG); Urine Ketones NEG (NEG); Urine Protein NEG (NEG-TRACE)
[2021-12-17 10:37] LABS: UPreg QC Valid YES; Urine Pregnancy NEGATIVE (NEGATIVE)
--- NOTE | 2021-12-17 10:37 | PC.NURSE ---
pt states that she has relapse. she had a 36oz amt of beer prior to arrival to er. ptdenies any si/hi.
[2021-12-17 10:47] LABS: Amphetamine Screen Urine Not Detected (Not Detect); Barbiturates, Urine Not Detected (Not Detect); Benzodiazepines Screen Urine Not Detected (Not Detect); Cannabinoid Screen Urine Not Detected (Not Detect); Cocaine Screen Urine Not Detected (Not Detect); Fentanyl, urine Not Detected (Not Detect); Opiate Screen Urine Not Detected (Not Detect); Phencyclidine Screen Urine Not Detected (Not Detect)
--- NOTE | 2021-12-17 10:50 | PC.NURSE ---
pt is not at bedside. pt apparently changed from hosp garment into street clothing and left the building . aware.
--- NOTE | 2021-12-17 11:08 | MHC.RECOVSUP ---
met with pt. she stated that she was interested in going to treatment. This recovery engineer made calls to various detox and was waiting for a call back from [facility]. I went back to to the Pt. that I was waiting for a call back but Pt. decided to leave ama.
--- NOTE | 2021-12-17 11:10 | MHC.CARE ---
Pt eloped prior to CARE Team and Recovery intervention.
== END 2021-12-17 11:00 | disposition left against medical advice (07) ==
PROVIDERS: Emergency Provider Emergency Medicine; PCP Internal Medicine
DX: F10.139 Alcohol abuse with withdrawal, unspecified (principal); Z79.899 Other long term (current) drug therapy; Z71.41 Alcohol abuse counseling and surveillance of alcoholic
CPT/HCPCS: 80307; 81003; 81025; 99284

== ENCOUNTER 2021-12-17 12:50 | Emergency (ER) | payer OTHER, SELFPAY ==
[2021-12-17 13:32] VITALS: BP 135/91; PULSE 102; RESP 18; TEMP 36.9; O2SAT 98; BMI 26.5
--- NOTE | 2021-12-17 14:01 | MHC.RECOVSUP ---
Met with Pt. for the second time. She stated that she was having a panic attack and that's why she left the first time. Was able to start the process of seeking a detox bed. Spoke to Elvi about the Pt. Elvi will be able to continue the process of getting her to [facility].
== END 2021-12-17 16:06 | disposition left against medical advice (07) ==
LOC: HO.ED 16:05
PROVIDERS: Emergency Provider Emergency Medicine
DX: F10.139 Alcohol abuse with withdrawal, unspecified (principal); F41.0 Panic disorder [episodic paroxysmal anxiety]
CPT/HCPCS: 99281

== ENCOUNTER 2021-12-17 16:37 | Emergency (ER) | payer OTHER, SELFPAY | END 2021-12-17 19:01 | disposition left against medical advice (07) | PROVIDERS: Emergency Provider Emergency Medicine; PCP Internal Medicine | DX: F10.139 Alcohol abuse with withdrawal, unspecified (principal); Z79.899 Other long term (current) drug therapy; Z71.41 Alcohol abuse counseling and surveillance of alcoholic ==

== ENCOUNTER 2021-12-17 20:07 | Emergency (ER) | payer OTHER, SELFPAY ==
--- NOTE | ~2021-12-17 | XR_ITS ---
EXAMINATION: XR HAND, RIGHT CLINICAL INFORMATION: Punched a wall COMPARISON: None TECHNIQUE: PA, lateral, and oblique views of the right hand. FINDINGS: The bones and soft tissues are normal. No fracture. Alignment is anatomic. Joint spaces are maintained. No erosions or soft tissue calcifications. XR/XR hand RT min 3V IMPRESSION: Normal right hand.
[2021-12-17 20:15] VITALS: BMI 25.7
--- NOTE | 2021-12-17 21:31 | ED_ITS ---
HPI - Psych General Chief Complaint: ETOH/Substance Use Stated Complaint: Crisis Time Seen by Provider: 12/17/21 21:30 Source: patient Mode of arrival: ambulatory Limitations: other (intoxication) History of Present Illness HPI Narrative: repeat visits for ETOH today states she wants detox then made comments about anxiety, found sleeping on road, has bruise to right middle finger after punching a wall, denies SI to me complaint: feels depressed, anxiety and alcohol abuse Onset (ago): week(s) Duration: constant History of same: Yes Relieving factors: none Exacerbating factors: alcohol Context: recent alcohol abuse Associated psychiatric symptoms: depression Associated symptoms: denies other symptoms Related Data Home Medications Medication Instructions Recorded Confirmed venlafaxine 150 mg 1 cap PO DAILY 12/17/21 12/17/21 capsule,extended release 24 hr Allergies Allergy/AdvReac Type Severity Reaction Status Date / Time No Known Allergies Allergy Verified 12/17/21 20:22 [No Known Allergies*] Review of Systems Verdana 4l Review of Systems: Verdana 4d Verdana 4d Constitutional : No Fever, No Chills ENT/Mouth : No Ear Pain, No Nasal Congestion, No sore throat Eyes: No Eye Pain, No Swelling, No Redness Cardiovascular : No Chest Pain, No SOB Respiratory : No Cough, No Sputum, No Dyspnea GastrointestinalGastrointestinal : No Nausea, No Vomiting, No Diarrhea, No Hematochezia, No Melena Genitourinary : No Dysuria, No Urinary Frequency, No Hematuria Musculoskeletal : No Myalgias, pos joing swelling Skin : No Skin Lesions, No rash Neuro : No Weakness, No Numbness, No Paresthesias, No Dizziness, No Headache Psych : positive Anxiety, positive Depression, no SI/HI Heme/Lymph: No Lymphadenopathy Endocrine : No Polyuria, No Polydipsia All other systems reviewed and are negative PMFSH Past Medical History Attestation statement: The following information was validated with the patient. Medical History Alcohol abuse with withdrawal delirium Alcohol use disorder Alcohol withdrawal delirium Alcohol withdrawal seizure Alcoholism Anxiety Bulimia Chronic post-traumatic stress disorder (PTSD) Depression SANDY (generalized anxiety disorder) MDD (major depressive disorder), recurrent episode, moderate MDD (major depressive disorder), recurrent episode, severe Panic attack Family History Family History Brother Substance abuse Social History Social History Household Members: Family Housing: Apartment Do you presently have visiting nurse or other home services: No Alcohol intake: current Alcohol intake frequency: 3 or more drinks per day Alcohol type: beer Patient Tobacco Use Status: Never used Tobacco e-Cigarette/Vaping Use: Never Used Second Hand Smoke Exposure: No Substance Use Type: Marijuana Advance Directives: No Advance Directives Information Provided: Yes Patient : No service: No Current occupational status: unemployed Sexual orientation: Straight/Heterosexual Physical Exam Verdana 4l Vital Signs: Verdana 4d Verdana 4d Vital Signs: Verdana 4d Verdana 4Bd BMI result Safety Instructor New 4d Safety Instructor New 4d Safety Instructor New 4d Verdana 4 Body Mass Index Verdana 4 Verdana 4 25.7 Appearance: Alert. Oriented X3. No acute distress. ETOH odor Eyes: Pupils equal, round and reactive to light. ENT: Pharynx normal. Neck: Normal inspection. Neck supple. CVS: Normal heart rate and rhythm. Pulses normal. Respiratory: No respiratory distress. Breath sounds normal. Abdomen: Soft and nontender. Skin: Skin warm and dry. Normal skin color. Normal skin turgor. Extremities: No lower extremity edema. No calf ttp R middle finger contusion noted distal NV intact Neuro: Oriented X 3. No motor deficit. No sensory deficit. CN2-12 intact Course Course Course Narrative: Physician observation started at 1017pm Patient placed in physician observation because the patient needed more time for clinical sobriety prior to detox/care team assessment. At the time observation was started the patient's vitals were stable, patient is alert and oriented but slightly anxious, Neuro: nonfocal, CV RRR, Lungs clear MDM - Psych MDM Narrative Medical decision making narrative: 31 yo female with hx of anxiety and ETOH abuse here with c/o anxiety and ETOH abuse at this time wants detox - will obtain labs, xray of hand, refer to care team once sober, PRN ativan. Lab Data Result diagrams: 12/17/21 21:27 12/17/21 21:27 Labs: Lab Results 12/17/21 12/17/21 12/17/21 Range/Units 21:17 21:17 21:17 WBC (4.8-10.8) X10*3/uL RBC (4.20-5.50) X10*6/uL Hgb (12.0-16.0) g/dl Hct (37.0-47.0) % MCV (80.0-98.0) fL MCH (27.0-33.0) pg MCHC (31.0-35.0) g/dl RDW (11.0-16.0) % Plt Count (160-400) X10*3/uL MPV (9.4-12.3) fL Immature Gran % (0.0-0.4) % (Auto) Neut % (Auto) (45-73) % Lymph % (Auto) (20-40) % [place] % (Auto) (2-11) % Eos % (Auto) (0-4) % Baso % (Auto) (0-2) % Lymph # (Auto) (1.2-4.9) X10*3/uL [place] # (Auto) (0.1-1.2) X10*3/uL Eos # (Auto) (0.0-0.4) X10*3/uL Baso # (Auto) (0.0-0.2) X10*3/uL Abs Immat Gran (auto) (0.00-0.03) X10*3/uL Absolute Neuts (auto) (2.0-8.3) x10*3/uL Absolute Nucleated (0.0-0.012) RBC X10*3/uL Nucleated RBC % (0.0-0.2) /100WBC (auto) Sodium (135-145) mmol/L Potassium (3.3-5.1) mmol/L Chloride (96-108) mmol/L Carbon Dioxide (22-29) mmol/L Anion Gap (12-20) BUN (9-16) mg/dL Creatinine (0.5-1.4) mg/dL Estim Creat Clear Calc Estimated GFR Random Glucose (60-115) mg/dL Calcium (8.4-10.2) mg/dL Magnesium (1.6-2.6) mg/dL Total Bilirubin (0.0-1.0) mg/dL Direct Bilirubin (0.0-0.5) mg/dL AST (5-31) U/L ALT (0-31) U/L Alkaline Phosphatase (39-117) U/L Total Protein (6.5-8.0) g/dL Albumin (3.5-5.0) g/dL Urine Color STRAW Urine Appearance CLEAR Urine pH 5.5 (5.0-8.0) Ur Specific [place] <= 1.005 (1.005-1.025) Urine Protein NEG (NEG-TRACE) MG/DL Urine Glucose (UA) NEG (NEG) MG/DL Urine Ketones NEG (NEG) MG/DL Urine Blood 2+ H (NEG) Urine Nitrite NEG (NEG) Ur Leukocyte Esterase NEG (NEG) Urine RBC 0-2 (0) /HPF Urine WBC 0 (0-4) /HPF Ur Squamous Epith TRACE /LPF Cells Urine Bacteria TRACE /LPF Urine Test (NEGATIVE) Urine Opiates Screen Not Detected (Not Detect) Urine Fentanyl Screen Not Detected (Not Detect) Ur Barbiturates Not Detected (Not Detect) Screen Ur Phencyclidine Scrn Not Detected (Not Detect) Ur Amphetamines Not Detected (Not Detect) Screen U Benzodiazepines Not Detected (Not Detect) Scrn Urine Cocaine Screen Not Detected (Not Detect) U Marijuana (THC) Not Detected (Not Detect) Screen Ethyl Alcohol mg/dL COVID-19 ([facility]) Negative (Negative) COVID-19 Clin Com See Note 12/17/21 12/17/21 12/17/21 Range/Units 21:17 21:27 21:27 WBC 7.4 (4.8-10.8) X10*3/uL RBC 5.02 (4.20-5.50) X10*6/uL Hgb 14.1 (12.0-16.0) g/dl Hct 41.0 (37.0-47.0) % MCV 81.7 (80.0-98.0) fL MCH 28.1 (27.0-33.0) pg MCHC 34.4 (31.0-35.0) g/dl RDW 13.9 (11.0-16.0) % Plt Count 263 D (160-400) X10*3/uL MPV 9.8 (9.4-12.3) fL Immature Gran % (Auto) 0.1 (0.0-0.4) % Neut % (Auto) 54.0 (45-73) % Lymph % (Auto) 40.2 H (20-40) % [place] % (Auto) 4.9 (2-11) % Eos % (Auto) 0.0 (0-4) % Baso % (Auto) 0.8 (0-2) % Lymph # (Auto) 3.0 (1.2-4.9) X10*3/uL [place] # (Auto) 0.4 (0.1-1.2) X10*3/uL Eos # (Auto) 0.0 (0.0-0.4) X10*3/uL Baso # (Auto) 0.1 (0.0-0.2) X10*3/uL Abs Immat Gran (auto) 0.01 (0.00-0.03) X10*3/uL Absolute Neuts (auto) 4.0 (2.0-8.3) x10*3/uL Absolute Nucleated RBC 0.000 (0.0-0.012) X10*3/uL Nucleated RBC % (auto) 0.0 (0.0-0.2) /100WBC Sodium 141 (135-145) mmol/L Potassium 4.1 (3.3-5.1) mmol/L Chloride 103 (96-108) mmol/L Carbon Dioxide 25 (22-29) mmol/L Anion Gap 17 (12-20) BUN 6 L (9-16) mg/dL Creatinine 0.70 (0.5-1.4) mg/dL Estim Creat Clear Calc 110.3 Estimated GFR > 60 Random Glucose 93 (60-115) mg/dL Calcium 9.3 (8.4-10.2) mg/dL Magnesium 2.1 (1.6-2.6) mg/dL Total Bilirubin 0.4 (0.0-1.0) mg/dL Direct Bilirubin 0.2 (0.0-0.5) mg/dL AST 44 H D (5-31) U/L ALT 25 (0-31) U/L Alkaline Phosphatase 81 (39-117) U/L Total Protein 8.2 H (6.5-8.0) g/dL Albumin 4.5 (3.5-5.0) g/dL Urine Color Urine Appearance Urine pH (5.0-8.0) Ur Specific [place] (1.005-1.025) Urine Protein (NEG-TRACE) MG/DL Urine Glucose (UA) (NEG) MG/DL Urine Ketones (NEG) MG/DL Urine Blood (NEG) Urine Nitrite (NEG) Ur Leukocyte Esterase (NEG) Urine RBC (0) /HPF Urine WBC (0-4) /HPF Ur Squamous Epith Cells /LPF Urine Bacteria /LPF Urine Test NEGATIVE (NEGATIVE) Urine Opiates Screen (Not Detect) Urine Fentanyl Screen (Not Detect) Ur Barbiturates Screen (Not Detect) Ur Phencyclidine Scrn (Not Detect) Ur Amphetamines Screen (Not Detect) U Benzodiazepines Scrn (Not Detect) Urine Cocaine Screen (Not Detect) U Marijuana (THC) Screen (Not Detect) Ethyl Alcohol mg/dL COVID-19 ([facility]) (Negative) COVID-19 Clin Com 12/17/21 Range/Units 21:27 WBC (4.8-10.8) X10*3/uL RBC (4.20-5.50) X10*6/uL Hgb (12.0-16.0) g/dl Hct (37.0-47.0) % MCV (80.0-98.0) fL MCH (27.0-33.0) pg MCHC (31.0-35.0) g/dl RDW (11.0-16.0) % Plt Count (160-400) X10*3/uL MPV (9.4-12.3) fL Immature Gran % (Auto) (0.0-0.4) % Neut % (Auto) (45-73) % Lymph % (Auto) (20-40) % [place] % (Auto) (2-11) % Eos % (Auto) (0-4) % Baso % (Auto) (0-2) % Lymph # (Auto) (1.2-4.9) X10*3/uL [place] # (Auto) (0.1-1.2) X10*3/uL Eos # (Auto) (0.0-0.4) X10*3/uL Baso # (Auto) (0.0-0.2) X10*3/uL Abs Immat Gran (auto) (0.00-0.03) X10*3/uL Absolute Neuts (auto) (2.0-8.3) x10*3/uL Absolute Nucleated RBC (0.0-0.012) X10*3/uL Nucleated RBC % (auto) (0.0-0.2) /100WBC Sodium (135-145) mmol/L Potassium (3.3-5.1) mmol/L Chloride (96-108) mmol/L Carbon Dioxide (22-29) mmol/L Anion Gap (12-20) BUN (9-16) mg/dL Creatinine (0.5-1.4) mg/dL Estim Creat Clear Calc Estimated GFR Random Glucose (60-115) mg/dL Calcium (8.4-10.2) mg/dL Magnesium (1.6-2.6) mg/dL Total Bilirubin (0.0-1.0) mg/dL Direct Bilirubin (0.0-0.5) mg/dL AST (5-31) U/L ALT (0-31) U/L Alkaline Phosphatase (39-117) U/L Total Protein (6.5-8.0) g/dL Albumin (3.5-5.0) g/dL Urine Color Urine Appearance Urine pH (5.0-8.0) Ur Specific [place] (1.005-1.025) Urine Protein (NEG-TRACE) MG/DL Urine Glucose (UA) (NEG) MG/DL Urine Ketones (NEG) MG/DL Urine Blood (NEG) Urine Nitrite (NEG) Ur Leukocyte Esterase (NEG) Urine RBC (0) /HPF Urine WBC (0-4) /HPF Ur Squamous Epith Cells /LPF Urine Bacteria /LPF Urine Test (NEGATIVE) Urine Opiates Screen (Not Detect) Urine Fentanyl Screen (Not Detect) Ur Barbiturates Screen (Not Detect) Ur Phencyclidine Scrn (Not Detect) Ur Amphetamines Screen (Not Detect) U Benzodiazepines Scrn (Not Detect) Urine Cocaine Screen (Not Detect) U Marijuana (THC) Screen (Not Detect) Ethyl Alcohol 407 H* mg/dL COVID-19 ([facility]) (Negative) COVID-19 Clin Com Discharge Plan Discharge Clinical Impression: Alcoholic intoxication Patient Disposition: Still a Patient Prescriptions: No Action venlafaxine 150 mg capsule,extended release 24hr 1 cap PO DAILY 0RF
[2021-12-17 21:40] LABS: MANUAL DIFF FLAG NO
[2021-12-17 21:47] LABS: Basophils Absolute Auto 0.1 X10*3/uL (0.0-0.2); Basophils Percent Auto 0.8 % (0-2); Hemoglobin 14.1 g/dl (12.0-16.0); Imm Gran Abs Auto 0.01 X10*3/uL (0.00-0.03); Imm Gran Pct Auto 0.1 % (0.0-0.4); Lymphocytes Percent Auto 40.2 % (20-40); Mean Corpuscular HGB Conc 34.4 g/dl (31.0-35.0); Mean Corpuscular Hemoglobin 28.1 pg (27.0-33.0); Mean Corpuscular Volume 81.7 fL (80.0-98.0); Mean Platelet Volume 9.8 fL (9.4-12.3); Monocytes Absolute Auto 0.4 X10*3/uL (0.1-1.2); Monocytes Percent Auto 4.9 % (2-11); Platelet Count 263 X10*3/uL (160-400); Red Blood Count 5.02 X10*6/uL (4.20-5.50); Red Cell Distribution Width 13.9 % (11.0-16.0); White Blood Count 7.4 X10*3/uL (4.8-10.8)
[2021-12-17 21:48] LABS: Appearance Urine CLEAR; Color Urine STRAW; Glucose Urine UA NEG (NEG); Leukocyte Esterase Urine NEG (NEG); Nitrite Urine NEG (NEG); PH 5.5 (5.0-8.0); Specific Gravity - Urine <= 1.005 (1.005-1.025); Urine Blood 2+ (NEG); Urine Ketones NEG (NEG); Urine Protein NEG (NEG-TRACE)
[2021-12-17 21:49] LABS: UPreg QC Valid YES; Urine Pregnancy NEGATIVE (NEGATIVE)
[2021-12-17 21:56] LABS: Ethanol 407 mg/dL
[2021-12-17 21:59] LABS: Amphetamine Screen Urine Not Detected (Not Detect); Barbiturates, Urine Not Detected (Not Detect); Benzodiazepines Screen Urine Not Detected (Not Detect); Cannabinoid Screen Urine Not Detected (Not Detect); Cocaine Screen Urine Not Detected (Not Detect); Fentanyl, urine Not Detected (Not Detect); Opiate Screen Urine Not Detected (Not Detect); Phencyclidine Screen Urine Not Detected (Not Detect)
[2021-12-17 22:00] LABS: WBC Urine 0 /HPF (0-4)
[2021-12-17 22:00] LABS: Alanine Aminotransferase 25 U/L (0-31); Albumin Level 4.5 g/dL (3.5-5.0); Alkaline Phosphatase 81 U/L (39-117); Anion Gap 17 (12-20); Aspartate Amino Transferase 44 U/L (5-31); Bilirubin Direct 0.2 mg/dL (0.0-0.5); Bilirubin Total 0.4 mg/dL (0.0-1.0); Blood Urea Nitrogen 6 mg/dL (9-16); Calcium 9.3 mg/dL (8.4-10.2); Carbon Dioxide 25 mmol/L (22-29); Chloride 103 mmol/L (96-108); Creatinine Clr Calc Pharmacy 110.3; Estimated Glomerular Filt Rate > 60; Glucose Random 93 mg/dL (60-115); Magnesium 2.1 mg/dL (1.6-2.6); Potassium 4.1 mmol/L (3.3-5.1); Sodium 141 mmol/L (135-145); Total Protein 8.2 g/dL (6.5-8.0)
[2021-12-17 22:02] LABS: Bacteria Urine TRACE /LPF; COVID-19 Test Negative (Negative); IDNOW Serial# 55D5AD1C; RBC Urine 0-2 /HPF (0); Squamous Epithelial Cell Urine TRACE /LPF
[2021-12-17] MEDS: LORazepam 1 MG TABLET 2 MG PO ×2 (23:16→23:51)
[2021-12-17 23:57] VITALS: BP 146/89; PULSE 133; RESP 17; TEMP 37.2; O2SAT 98
--- NOTE | 2021-12-18 05:58 | PC.NURSE ---
Patient slept through the night, no distress observed/reported, asymptomatic of withdrawal, behavior non-concerning, Ativan 2 mg administered around 2350 with positive effect, plan is to see organ recovery coordinator in the morning for detox help, will continue to monitor.
--- NOTE | 2021-12-18 07:00 | PC.NURSE ---
patient appears to remain asleep presently respirations are even and unlabored patient appears in no distress
[2021-12-18] MEDS: LORazepam 1 MG TABLET 2 MG PO ×4 (08:53→18:41)
--- NOTE | 2021-12-18 08:57 | MHC.RECOVSUP ---
Recovery Support note: Patient is a 31 year old Afghan speaking female who presented to [facility] ED on 12/17 due to concerns of alcohol withdrawal. Patient had alcohol in her system at that time. Patient remained in the ED overnight. This repairer typewriter met with patient on 12/18 to discuss alcohol use and recovery supports. Patient reports daily alcohol use and continues to express interest in going to detox. Patient denies SI/HI and reports no plan or intent to harm herself. This repairer typewriter will assist patient in referring to ATS facilities.
[2021-12-18 09:04] VITALS: BP 138/85; PULSE 91; TEMP 36; O2SAT 91
[2021-12-18 11:28] VITALS: BP 145/91; PULSE 99; O2SAT 98
[2021-12-18 15:20] VITALS: BP 122/85; PULSE 97; RESP 18; TEMP 36.4; O2SAT 98
--- NOTE | 2021-12-18 16:02 | MHC.RECOVSUP ---
Recovery Support note: Patient has been accepted to [facility] for ATS. Patient to be transported via EMS. Patient and ED staff aware.
[2021-12-18 18:08] VITALS: BP 124/86; PULSE 90; RESP 16; TEMP 36.5; O2SAT 99
--- NOTE | 2021-12-18 20:37 | PC.NURSE ---
Patient resting comfortably in bed no c/o at this time will continue to monitor
[2021-12-19 06:28] VITALS: BP 119/84; PULSE 86; RESP 18; TEMP 36.4; O2SAT 96
--- NOTE | 2021-12-19 07:28 | PC.NURSE ---
patient appears to remain at rest at present respirations are even and unlabored, patient appears in no distress
--- NOTE | 2021-12-19 08:15 | MHC.RECOVSUP ---
Recovery Support note: Patient was unable to admit to [facility] yesterday due to a delay in ambulance arrival. This keno writer/runner spoke with Clarke at [facility], they are still able to take patient and will call after 1000 to complete nurse to nurse. Patient will need to be transported via ambulance.
[2021-12-19] MEDS: LORazepam 1 MG TABLET 2 MG PO (10:05)
[2021-12-19 10:15] VITALS: BP 141/85; PULSE 85; TEMP 35.8; O2SAT 91
== END 2021-12-19 11:31 | disposition short-term general hospital (02) ==
PROVIDERS: Emergency Medicine Emergency Medical Services; Emergency Provider Emergency Medicine
DX: F33.1 Major depressive disorder, recurrent, moderate (principal); F10.129 Alcohol abuse with intoxication, unspecified; Y90.8 Blood alcohol level of 240 mg/100 ml or more; S60.031A Contusion of right middle finger without damage to nail, initial encounter; M79.641 Pain in right hand; X58.XXXA Exposure to other specified factors, initial encounter; Y93.9 Activity, unspecified; Y92.9 Unspecified place or not applicable; Y99.9 Unspecified external cause status; F41.1 Generalized anxiety disorder; F43.0 Acute stress reaction; Z79.899 Other long term (current) drug therapy; Z71.41 Alcohol abuse counseling and surveillance of alcoholic; Z20.822 Contact with and (suspected) exposure to COVID-19
CPT/HCPCS: 36415; 73130; 80048; 80076; 80307; 81001; 81025; 82077; 83735; 85025; 87635; 99285

== ENCOUNTER 2021-12-20 19:14 | Emergency (ER) | payer OTHER, SELFPAY ==
[2021-12-20 19:32] VITALS: BP 142/99; PULSE 98; RESP 20; TEMP 36.1; O2SAT 98; BMI 25.7
[2021-12-20 20:00] VITALS: BP 142/106; PULSE 100; RESP 18; TEMP 36.8; O2SAT 98
[2021-12-20] MEDS: Ondansetron ODT 4 MG TAB.RAPDIS TRANSLINGU (20:40)
--- NOTE | 2021-12-20 20:48 | MHC.RECOVSUP ---
? Reason for consult:Recovery support o Current location:BED 10 o Identified substance use concern: ETOH - Support ? Intervention: o Community resources provided o Harm reduction discussion ? Plan: o Referral to [facility] o Patient awaiting crisis evaluation o Patient to follow up with [facility] after discharge ? Additional information: Attempted to give patient community resources, and referrals to the [facility] so she could discuss MAT. Patient uncooperative, states she wants to leave. She says she is on the waiting list for [facility] and [facility].
[2021-12-20 21:06] LABS: Ethanol 306 mg/dL
[2021-12-20 21:14] LABS: Amphetamine Screen Urine Not Detected (Not Detect); Barbiturates, Urine Not Detected (Not Detect); Benzodiazepines Screen Urine Not Detected (Not Detect); Cannabinoid Screen Urine Not Detected (Not Detect); Cocaine Screen Urine Not Detected (Not Detect); Fentanyl, urine Not Detected (Not Detect); Opiate Screen Urine Not Detected (Not Detect); Phencyclidine Screen Urine Not Detected (Not Detect)
[2021-12-20 21:16] LABS: COVID-19 Test Negative (Negative)
[2021-12-20] MEDS: LORazepam 1 MG TABLET 2 MG PO (21:52)
--- NOTE | 2021-12-20 21:53 | PC.NURSE ---
pt not making sense, medicated per Mar. pt remains a 1:1.
[2021-12-20 22:00] VITALS: BP 138/88; PULSE 100; RESP 15; TEMP 36.8; O2SAT 99
--- NOTE | 2021-12-20 22:34 | ED_ITS ---
HPI - Psych General Chief Complaint: Psychiatric Symptoms Stated Complaint: withdrawals crisis Time Seen by Provider: 12/20/21 19:28 Source: patient History of Present Illness HPI Narrative: 31-year-old female with a past medical history of ETOH abuse, withdrawal delirium, ETOH withdrawal seizures, anxiety, bulimia, depression, anxiety, BIBA for ETOH intoxication reported suicidal statements at home per mother. Patient admits to drinking 2-4 beers and 1 shot. Per mother patient eliciting suicidal statements, patient denies SI/HI at present. Patient reports visual hallucinations. Denies illicit drug use, auditory hallucinations, abdominal pain, CP/SOB Of note patient was seen and treated in our facility recently, discharged yesterday accepted to [facility] detox, however states when she arrived had generalized anxiety attack and elsusannad complaint: substance abuse Duration: constant Related Data Home Medications Medication Instructions Recorded Confirmed No Known Home Meds 12/20/21 12/20/21 Allergies Allergy/AdvReac Type Severity Reaction Status Date / Time No Known Allergies Allergy Verified 12/20/21 19:37 [No Known Allergies*] Review of Systems Verdana 4l Review of Systems: Verdana 4d Verdana 4d Constitutional: No Fever, No Chills, No Fatigue, No Malaise ENT/Mouth: No Ear Pain, No Nasal Congestion, No sore throat, No Rhinorrhea Eyes: No Eye Pain, No Swelling, No Redness, No Discharge Cardiovascular: No Chest Pain, No SOB, No EdemaEdema, No Palpitations Respiratory: No Cough, No Dyspnea Gastrointestinal: No Nausea, No Vomiting, No Diarrhea, No Constipation, No Abdominal pain Genitourinary: No Dysuria, No Flank Pain Musculoskeletal: No joint pain, No Myalgias, No Joint Swelling Skin: No Skin Lesions, No rash Neuro: No Weakness, No Loss of Consciousness, No Dizziness, No Headache Psych: No Anxiety/Panic, No Depression, No SI/HI/AH, +VH Yes all other systems are reviewed and are negative PMFSH Past Medical History Attestation statement: The following information was validated with the patient. Medical History Alcohol abuse with withdrawal delirium Alcohol use disorder Alcohol withdrawal delirium Alcohol withdrawal seizure Alcoholism Anxiety Bulimia Chronic post-traumatic stress disorder (PTSD) Depression SANDY (generalized anxiety disorder) MDD (major depressive disorder), recurrent episode, moderate MDD (major depressive disorder), recurrent episode, severe Panic attack Family History Family History Brother Substance abuse Social History Social History Household Members: Family Housing: Apartment Do you presently have visiting nurse or other home services: No Alcohol intake: current Alcohol intake frequency: 3 or more drinks per day Alcohol type: beer and hard liquor Patient Tobacco Use Status: Never used Tobacco e-Cigarette/Vaping Use: Never Used Second Hand Smoke Exposure: No Use of substances other than those prescribed or required for medical reasons: Yes Substance Use Type: Marijuana Substance Use Frequency: Chronic Longstanding Advance Directives: No Advance Directives Information Provided: No Patient : No service: No Current occupational status: unemployed Sexual orientation: Straight/Heterosexual Physical Exam Verdana 4l Vital Signs: Verdana 4d Verdana 4d Vital Signs: Verdana 4d Verdana 4Bd Last Vital Signs Verdana 4d Shot Tube Machine Tender New 4d Shot Tube Machine Tender New 4d Temp 98.4 F 12/21/21 00:09 Shot Tube Machine Tender New 4d Pulse 109 H 12/21/21 02:00 Shot Tube Machine Tender New 4d Resp 15 12/21/21 03:30 BP 126/74 12/21/21 00:09 Pulse Ox 97 12/21/21 00:09 BMI result Body Mass Index 25.7 Const: Other: +ETOH odor on breath General: cooperative, no acute distress, alert, awake and intoxicated appearing Orientation/consciousness: patient oriented x3 HENMT: Head: Yes normal to inspection and Yes atraumatic Ears: hearing grossly normal bilaterally General nose exam: Normal external nose present Face and sinus: Yes normal facial exam Eyes: General: appearance normal, both eyes and all related structures Pupils: Equal, round and reactive pupils present and Dilated pupils bilaterally EOM: EOMs intact bilaterally Neck: Neck: Yes normal visual inspection and Yes no meningeal signs Resp: Effort & Inspection: normal respiratory effort and no respiratory distress Auscultation: clear to auscultation bilaterally, no rales, no rhonchi and no wheezes Cardio: Rate: regular rate Heart sounds: S1 normal heart sound present and S2 normal heart sound present GI: Inspection: Yes normal to inspection Palpation (GI): Soft to palpation, nontender and no guarding Skin: Rashes: no rashes Wounds: no wounds Neuro: Other: No tongue fasciculations or tremors General: patient oriented x3, moves all extremities, no meningeal signs, no focal motor deficits and CN's II-XI intact bilaterally Cranial nerves: Yes Equal, round and reactive pupils present Motor exam (neuro): no tremor noted and Motor fasciculations not present Extrem: General: Yes normal to inspection Psych: Affect: Hostile affect present and Irritable affect present Thought content: suicidality and no homicidality Insight: Poor insight present (Psych) Course Course Course Narrative: -ethanol 306 > will observe and reassess for clinical sobriety pending care team eval. Physician observation initiated as patient needs more time to be evaluated by care team/clinically sober -0115--patient in mild ETOH withdrawal with nausea/vomiting and tachycardia. Also increased anxiety which likely contributing to tachycardia. IV line placed given 2mg IV Ativan, Reglan and IVF -0350--patient sitting comfortably on re-evaluation. Heart rate 95 -0350--ED care transferred to Dr. Ervin pending care team evaluation and clinical sobriety MDM - Psych MDM Narrative Medical decision making narrative: 31-year-old female with a past medical history of ETOH abuse, withdrawal delirium, ETOH withdrawal seizures, anxiety, bulimia, depression, anxiety, BIBA for ETOH intoxication reported suicidal statements at home per mother. On exam hypertensive, ETOH odor on breath, intoxicated, atraumatic, REYNA, no focal neuro deficits. Irritable. Concern for ETOH intoxication/suicidality Plan: Ethanol, care team eval, disaster recovery specialist eval, observe and reassess for clinical sobriety Medical Records Attestation: I reviewed the patient's medical records. Lab Data Attestation: I reviewed the patient's lab results. Labs: Lab Results 12/20/21 12/20/21 12/20/21 Range/Units 20:47 20:50 20:50 Urine Opiates Screen Not Detected (Not Detect) Urine Fentanyl Screen Not Detected (Not Detect) Ur Barbiturates Screen Not Detected (Not Detect) Ur Phencyclidine Scrn Not Detected (Not Detect) Ur Amphetamines Screen Not Detected (Not Detect) U Benzodiazepines Scrn Not Detected (Not Detect) Urine Cocaine Screen Not Detected (Not Detect) U Marijuana (THC) Screen Not Detected (Not Detect) Ethyl Alcohol 306 H* mg/dL COVID-19 ([facility]) Negative (Negative) COVID-19 Clin Com See Note Discharge Plan Discharge Clinical Impression: Alcohol intoxication Prescriptions: No Action No Known Home Meds 0RF
--- NOTE | 2021-12-20 23:42 | PC.NURSE ---
Patient asking for anxiety medication as well as medication for headache. Provider spoken to regarding patient's request. Per provider no more medication for anxiety.
[2021-12-21] VITALS (7 sets, daily range): BP systolic 115–129; BP diastolic 74–88; PULSE 85–127; RESP 14–18; TEMP 36.2–36.9; O2SAT 95–99
[2021-12-21] MEDS: hydrOXYzine HCL 25 MG TABLET PO (00:27)
[2021-12-21] MEDS: LORazepam 2 MG/ML VIAL IVPUSH (01:20)
[2021-12-21] MEDS: Metoclopramide HCl 10 MG/2 ML VIAL IVPUSH (01:20)
--- NOTE | 2021-12-21 01:29 | MHC.MBSS ---
Iv placed and medicated per Jan. Notified ANTONINO Tompkins.
[2021-12-21] MEDS: 0.9 % Sodium Chloride 1,000 ML 999 ML IV (02:01)
[2021-12-21] MEDS: Folic Acid 1 MG TABLET PO (02:02)
[2021-12-21] MEDS: Thiamine HCL 100 MG TABLET PO (02:02)
--- NOTE | 2021-12-21 08:32 | PC.NURSE ---
Pt received from night baker: Pt AOX2-3, mainly sleeping. 1:1 sitter noted at bedside r/t SI statements made at home. Pt continues to deny them here. Heart sounds normal and lungs clear. Pt abd soft and non-tender. Pt denies any current N/V. Pending BHN. Pt will be sober based on alcohol level around 1630 this afternoon. RN will continue to monitor.
--- NOTE | 2021-12-21 09:36 | PC.NURSE ---
Pt's mother Margine: [phone]
--- NOTE | 2021-12-21 12:54 | PC.NURSE ---
Pt to [facility] at this time.
[2021-12-21] MEDS: LORazepam 1 MG TABLET PO (14:40)
--- NOTE | 2021-12-21 16:46 | MHC.CARE ---
CARE Team met with pt in another attempt to connect pt with detox. Pt asked for the list of detoxes and reports that she wants to go home and shower so she will call the detoxes in the morning. Pt declined additional support at this time. She is asking to be discharged home.
== END 2021-12-21 17:18 | disposition home or self-care (01) ==
PROVIDERS: Physician Assistant; Emergency Provider Emergency Medicine
DX: F10.120 Alcohol abuse with intoxication, uncomplicated (principal); Y90.8 Blood alcohol level of 240 mg/100 ml or more; R00.0 Tachycardia, unspecified; R45.851 Suicidal ideations; R44.1 Visual hallucinations; Z20.822 Contact with and (suspected) exposure to COVID-19; F32.A Depression, unspecified; F41.9 Anxiety disorder, unspecified
CPT/HCPCS: 36415; 80307; 82077; 87635; 96361; 96374; 96375; 96376; 99285; J2060; J2765

== ENCOUNTER 2022-02-20 19:56 | Emergency (ER) | payer OTHER, SELFPAY ==
[2022-02-20 20:11] VITALS: BMI 24.0
[2022-02-20 20:45] VITALS: BP 133/98; PULSE 107; RESP 20; TEMP 37.3; O2SAT 97
[2022-02-20 20:45] LABS: Appearance Urine CLEAR; Color Urine YELLOW; Glucose Urine UA NEG (NEG); Leukocyte Esterase Urine NEG (NEG); Nitrite Urine NEG (NEG); PH 6.5 (5.0-8.0); Specific Gravity - Urine <= 1.005 (1.005-1.025); Urine Blood 1+ (NEG); Urine Ketones NEG (NEG); Urine Protein NEG (NEG-TRACE)
[2022-02-20 20:54] LABS: UPreg QC Valid YES; Urine Pregnancy NEGATIVE (NEGATIVE)
--- NOTE | 2022-02-20 20:55 | ED.ALCOHOL ---
HPI - Alcohol General Chief Complaint: Psychiatric Symptoms <NANY Mcgovern - Last Filed: 02/21/22 02:41> Stated Complaint: etoh <NANY Mcgovern - Last Filed: 02/21/22 02:41> Time Seen by Provider: 02/20/22 20:54 <NANY Mcgovern - Last Filed: 02/21/22 02:41> Source: patient and EMS <NANY Mcgovern - Last Filed: 02/21/22 02:41> Mode of arrival: EMS <NANY Mcgovern - Last Filed: 02/21/22 02:41> Limitations: no limitations <NANY Mcgovern Last Filed: 02/21/22 02:41> History of Present Illness HPI narrative: this is a 31-year-old female past medical history significant for alcohol use disorder, anxiety, PTSD, major depression, polysubstance abuse presenting to the emergency department with complaints of alcohol intoxication, visual and auditory hallucinations. Patient tells me she feels like she is withdrawing. Patient tells me she typically drinks an 18 pack per day however her last drink was yesterday. She tells me that she is seeing and hearing her friends in her head telling her to do things. Patient is a poor historian as she appears to be intoxicated. Very hard to obtain a clear history from patient. She tells me she is not suicidal or homicidal. Denies any medical complaints at this time. <NANY Mcgovern - Last Filed: 02/21/22 02:41> MD complaint: alcohol intoxication and alcohol dependence <NANY Mcgovern - Last Filed: 02/21/22 02:41> Last drink: Days (ago) (1) <NANY Mcgovern - Last Filed: 02/21/22 02:41> Chronic alcohol use: Yes <NANY Mcgovern - Last Filed: 02/21/22 02:41> Previous visits for alcohol intoxication: Yes <NANY Mcgovern Last Filed: 02/21/22 02:41> Recent trauma: No <NANY Mcgovern - Last Filed: 02/21/22 02:41> Associated symptoms: denies other symptoms <NANY Mcgovern Last Filed: 02/21/22 02:41> Treatments prior to arrival: none <NANY Mcgovern Last Filed: 02/21/22 02:41> Related Data Home Medications: Home Medications Medication Instructions Recorded Confirmed No Known Home Meds 12/20/21 12/20/21 <NANY Mcgovern Last Filed: 02/21/22 02:41> Allergies/Adverse Reactions: Allergies Allergy/AdvReac Type Severity Reaction Status Date / Time No Known Allergies Allergy Verified 12/20/21 19:37 [No Known Allergies*] <NANY Mcgovern Last Filed: 02/21/22 02:41> Review of Systems Review of Systems: Constitutional : No Weight loss, No Fever, No Chills, No Fatigue, No Malaise ENT/Mouth : No sore throat, No Rhinorrhea Eyes: No Eye Pain, No Swelling, No Redness Cardiovascular : No Chest Pain, No SOB, No Dyspnea on Exertion, No Orthopnea, No Edema, No Palpitations Respiratory : No Cough, No Sputum, No Wheezing Gastrointestinal : No Nausea, No Vomiting, No Diarrhea, No Constipation, No abdominal Pain, No Hematochezia, No Melena Genitourinary : No Dysuria, No Urinary Frequency, No Hematuria, Musculoskeletal : No joint pain, No Myalgias, No Joint Swelling Skin : No Skin Lesions, No rash Neuro : No Weakness, No Numbness, No Dizziness, No Headache Psych : + Anxiety/Panic, No Depression, + Visual and auditory hallucinations All other systems reviewed and are negative <NANY Mcgovern Last Filed: 02/21/22 02:41> Yes all other systems are reviewed and are negative <NANY Mcgovern Last Filed: 02/21/22 02:41> [facility] Past Medical History Attestation statement: The following information was validated with the patient. <NANY Mcgovern Last Filed: 02/21/22 02:41> Source: old records reviewed and nursing notes reviewed <NANY Mcgovern Last Filed: 02/21/22 02:41> Medical History: Medical History Alcohol abuse with withdrawal delirium Alcohol use disorder Alcohol withdrawal delirium Alcohol withdrawal seizure Alcoholism Anxiety Bulimia Chronic post-traumatic stress disorder (PTSD) Depression SANDY (generalized anxiety disorder) MDD (major depressive disorder), recurrent episode, moderate MDD (major depressive disorder), recurrent episode, severe Panic attack <NANY Mcgovern - Last Filed: 02/21/22 02:41> Family History Family History: Family History Brother Substance abuse <NANY Mcgovern - Last Filed: 02/21/22 02:41> Social History Social History: Social History Household Members: Family Housing: Apartment Do you presently have visiting nurse or other home services: No Alcohol intake: current Alcohol intake frequency: 3 or more drinks per day Alcohol type: beer and hard liquor Patient Tobacco Use Status: Never used Tobacco e-Cigarette/Vaping Use: Never Used Second Hand Smoke Exposure: No Substance Use Type: Marijuana Advance Directives: No Patient : No service: No Current occupational status: unemployed Sexual orientation: Straight/Heterosexual <NANY Mcgovern - Last Filed: 02/21/22 02:41> Physical Exam ED Vital Signs: Vital Signs - 24 hr 02/20/22 20:45 02/21/22 06:19 Temperature 99.2 F 97.9 F Pulse Rate 107 H 87 Respiratory Rate 20 16 Blood Pressure 133/98 H 113/77 Pulse Oximetry 97 98 BMI result Body Mass Index 24.0 vital signs stable <NANY Mcgovern - Last Filed: 02/21/22 02:41> Vital Signs - 24 hr 02/20/22 20:45 02/21/22 06:19 Temperature 99.2 F 97.9 F Pulse Rate 107 H 87 Respiratory Rate 20 16 Blood Pressure 133/98 H 113/77 Pulse Oximetry 97 98 BMI result Body Mass Index 24.0 <Jason Knutson MD - Last Filed: 02/21/22 08:03> Appearance: Alert.? Oriented X3.? No acute distress.? Head: Normocephalic, atraumatic, no step-offs or deformities Eyes: Pupils equal, round and reactive to light.? ENT: Pharynx normal.? No tongue fasciculations. Neck: Normal inspection.? Neck supple.? CVS: Normal heart rate and rhythm.? Pulses normal.? Respiratory: No respiratory distress.? Breath sounds normal.? Abdomen: Soft and nontender.? Skin: Skin warm and dry.? Normal skin color.? Normal skin turgor.? Extremities: No lower extremity edema.? No calf ttp. 5/5 strength to bilateral upper and lower extremities. No asterixis. Back: No midline tenderness, no C-spine tenderness, full range of motion, no CVA tenderness bilaterally Neuro: Oriented X 3.? No motor deficit.? No sensory deficit. CN 2-12 intact <NANY Mcgovern - Last Filed: 02/21/22 02:41> Course Reevaluation(s) Reevaluation #1: Patient's CBC noted to be around baseline, platelets slightly low. One hundred fifty-seven however they have been low in the past. No acute electrolyte abnormalities requiring intervention. No signs of autonomic dysfunction at this time. Physical exam unchanged from initial. UA clean. Urine toxicology positive for barbiturates, ethanol 390. COVID negative. At this time patient will be placed in physician observation to allow more time to be evaluated by the Behavioral Health team. At time the observation was started patient, cooperative resting in bed no acute distress. Will continue to monitor <NANY Mcgovern - Last Filed: 02/21/22 02:41> Time: 02:39 <NANY Mcgovern - Last Filed: 02/21/22 02:41> Reevaluation #2: Seen by crisis has an intake at [facility] today, can be discharged <Jason Knutson MD - Last Filed: 02/21/22 08:03> Time: 08:02 <Jason Knutson MD - Last Filed: 02/21/22 08:03> MDM - Alcohol MDM Narrative Medical decision making narrative: 2109 31 yo female presents w/ CC of alcohol withdraw brought in by EMS PE benign . No signs of autonomic dysfunction at this time. No fasciculations or asterixis. plan labs, urine, COVID. Patient will be given Ativan prophylactically for alcohol withdrawal seizures as she tells me she has a history of these. <NANY Mcgovern - Last Filed: 02/21/22 02:41> Medical Records Attestation: I reviewed the patient's medical records. <NANY Mcgovern - Last Filed: 02/21/22 02:41> Lab Data Attestation: I reviewed the patient's lab results. <NANY Mcgovern - Last Filed: 02/21/22 02:41> Result diagrams: : 02/21/22 02:05 02/21/22 02:05 <NANY Mcgovern - Last Filed: 02/21/22 02:41> Labs: Lab Results 02/20/22 02/20/22 02/20/22 Range/Units 20:29 20:29 20:29 WBC (4.8-10.8) X10*3/uL RBC (4.20-5.50) X10*6/uL Hgb (12.0-16.0) g/dl Hct (37.0-47.0) % MCV (80.0-98.0) fL MCH (27.0-33.0) pg MCHC (31.0-35.0) g/dl RDW (11.0-16.0) % Plt Count (160-400) X10*3/uL MPV (9.4-12.3) fL Immature Gran % (Auto) (0.0-0.4) % Neut % (Auto) (45-73) % Lymph % (Auto) (20-40) % [place] % (Auto) (2-11) % Eos % (Auto) (0-4) % Baso % (Auto) (0-2) % Lymph # (Auto) (1.2-4.9) X10*3/uL [place] # (Auto) (0.1-1.2) X10*3/uL Eos # (Auto) (0.0-0.4) X10*3/uL Baso # (Auto) (0.0-0.2) X10*3/uL Abs Immat Gran (auto) (0.00-0.03) X10*3/uL Absolute Neuts (auto) (2.0-8.3) x10*3/uL Absolute Nucleated RBC (0.0-0.012) X10*3/uL Nucleated RBC % (auto) (0.0-0.2) /100WBC Sodium (135-145) mmol/L Potassium (3.3-5.1) mmol/L Chloride (96-108) mmol/L Carbon Dioxide (22-29) mmol/L Anion Gap (12-20) BUN (9-16) mg/dL Creatinine (0.5-1.4) mg/dL Estim Creat Clear Calc Estimated GFR Random Glucose (60-115) mg/dL Calcium (8.4-10.2) mg/dL Magnesium (1.6-2.6) mg/dL Total Bilirubin (0.0-1.0) mg/dL AST (5-31) U/L ALT (0-31) U/L Alkaline Phosphatase (39-117) U/L Total Protein (6.5-8.0) g/dL Albumin (3.5-5.0) g/dL Urine Color YELLOW Urine Appearance CLEAR Urine pH 6.5 (5.0-8.0) Ur Specific [place] <= 1.005 (1.005-1.025) Urine Protein NEG (NEG-TRACE) MG/DL Urine Glucose (UA) NEG (NEG) MG/DL Urine Ketones NEG (NEG) MG/DL Urine Blood 1+ H (NEG) Urine Nitrite NEG (NEG) Ur Leukocyte Esterase NEG (NEG) Urine RBC 1-4 (0) /HPF Urine WBC 1-4 (0-4) /HPF Ur Squamous Epith Cells TRACE /LPF Urine Bacteria TRACE /LPF Urine Test NEGATIVE (NEGATIVE) Urine Opiates Screen Not Detected (Not Detect) Urine Fentanyl Screen Not Detected (Not Detect) Ur Barbiturates Screen POSITIVE H (Not Detect) Ur Phencyclidine Scrn Not Detected (Not Detect) Ur Amphetamines Screen Not Detected (Not Detect) U Benzodiazepines Scrn Not Detected (Not Detect) Urine Cocaine Screen Not Detected (Not Detect) U Marijuana (THC) Screen Not Detected (Not Detect) Ethyl Alcohol mg/dL COVID-19 ([facility]) (Negative) COVID-19 Clin Com 02/20/22 02/20/22 02/21/22 Range/Units 20:43 20:54 02:05 WBC 5.6 (4.8-10.8) X10*3/uL RBC 4.30 (4.20-5.50) X10*6/uL Hgb 12.1 (12.0-16.0) g/dl Hct 36.0 L (37.0-47.0) % MCV 83.7 (80.0-98.0) fL MCH 28.1 (27.0-33.0) pg MCHC 33.6 (31.0-35.0) g/dl RDW 13.3 (11.0-16.0) % Plt Count 157 L D (160-400) X10*3/uL MPV 10.0 (9.4-12.3) fL Immature Gran % (Auto) 0.2 (0.0-0.4) % Neut % (Auto) 45.8 (45-73) % Lymph % (Auto) 42.9 H (20-40) % [place] % (Auto) 8.9 (2-11) % Eos % (Auto) 1.8 (0-4) % Baso % (Auto) 0.4 (0-2) % Lymph # (Auto) 2.4 (1.2-4.9) X10*3/uL [place] # (Auto) 0.5 (0.1-1.2) X10*3/uL Eos # (Auto) 0.1 (0.0-0.4) X10*3/uL Baso # (Auto) 0.0 (0.0-0.2) X10*3/uL Abs Immat Gran (auto) 0.01 (0.00-0.03) X10*3/uL Absolute Neuts (auto) 2.6 (2.0-8.3) x10*3/uL Absolute Nucleated RBC 0.000 (0.0-0.012) X10*3/uL Nucleated RBC % (auto) 0.0 (0.0-0.2) /100WBC Sodium (135-145) mmol/L Potassium (3.3-5.1) mmol/L Chloride (96-108) mmol/L Carbon Dioxide (22-29) mmol/L Anion Gap (12-20) BUN (9-16) mg/dL Creatinine (0.5-1.4) mg/dL Estim Creat Clear Calc Estimated GFR Random Glucose (60-115) mg/dL Calcium (8.4-10.2) mg/dL Magnesium (1.6-2.6) mg/dL Total Bilirubin (0.0-1.0) mg/dL AST (5-31) U/L ALT (0-31) U/L Alkaline Phosphatase (39-117) U/L Total Protein (6.5-8.0) g/dL Albumin (3.5-5.0) g/dL Urine Color Urine Appearance Urine pH (5.0-8.0) Ur Specific [place] (1.005-1.025) Urine Protein (NEG-TRACE) MG/DL Urine Glucose (UA) (NEG) MG/DL Urine Ketones (NEG) MG/DL Urine Blood (NEG) Urine Nitrite (NEG) Ur Leukocyte Esterase (NEG) Urine RBC (0) /HPF Urine WBC (0-4) /HPF Ur Squamous Epith Cells /LPF Urine Bacteria /LPF Urine Test (NEGATIVE) Urine Opiates Screen (Not Detect) Urine Fentanyl Screen (Not Detect) Ur Barbiturates Screen (Not Detect) Ur Phencyclidine Scrn (Not Detect) Ur Amphetamines Screen (Not Detect) U Benzodiazepines Scrn (Not Detect) Urine Cocaine Screen (Not Detect) U Marijuana (THC) Screen (Not Detect) Ethyl Alcohol 390 H* mg/dL COVID-19 ([facility]) Negative (Negative) COVID-19 Clin Com See Note 02/21/22 Range/Units 02:05 WBC (4.8-10.8) X10*3/uL RBC (4.20-5.50) X10*6/uL Hgb (12.0-16.0) g/dl Hct (37.0-47.0) % MCV (80.0-98.0) fL MCH (27.0-33.0) pg MCHC (31.0-35.0) g/dl RDW (11.0-16.0) % Plt Count (160-400) X10*3/uL MPV (9.4-12.3) fL Immature Gran % (Auto) (0.0-0.4) % Neut % (Auto) (45-73) % Lymph % (Auto) (20-40) % [place] % (Auto) (2-11) % Eos % (Auto) (0-4) % Baso % (Auto) (0-2) % Lymph # (Auto) (1.2-4.9) X10*3/uL [place] # (Auto) (0.1-1.2) X10*3/uL Eos # (Auto) (0.0-0.4) X10*3/uL Baso # (Auto) (0.0-0.2) X10*3/uL Abs Immat Gran (auto) (0.00-0.03) X10*3/uL Absolute Neuts (auto) (2.0-8.3) x10*3/uL Absolute Nucleated RBC (0.0-0.012) X10*3/uL Nucleated RBC % (auto) (0.0-0.2) /100WBC Sodium 140 (135-145) mmol/L Potassium 4.2 (3.3-5.1) mmol/L Chloride 101 (96-108) mmol/L Carbon Dioxide 29 (22-29) mmol/L Anion Gap 14 (12-20) BUN 6 L (9-16) mg/dL Creatinine 0.68 (0.5-1.4) mg/dL Estim Creat Clear Calc 103.4 Estimated GFR > 60 Random Glucose 84 (60-115) mg/dL Calcium 8.5 D (8.4-10.2) mg/dL Magnesium 1.9 (1.6-2.6) mg/dL Total Bilirubin 0.3 (0.0-1.0) mg/dL AST 30 (5-31) U/L ALT 19 (0-31) U/L Alkaline Phosphatase 63 D (39-117) U/L Total Protein 7.3 (6.5-8.0) g/dL Albumin 4.3 (3.5-5.0) g/dL Urine Color Urine Appearance Urine pH (5.0-8.0) Ur Specific [place] (1.005-1.025) Urine Protein (NEG-TRACE) MG/DL Urine Glucose (UA) (NEG) MG/DL Urine Ketones (NEG) MG/DL Urine Blood (NEG) Urine Nitrite (NEG) Ur Leukocyte Esterase (NEG) Urine RBC (0) /HPF Urine WBC (0-4) /HPF Ur Squamous Epith Cells /LPF Urine Bacteria /LPF Urine Test (NEGATIVE) Urine Opiates Screen (Not Detect) Urine Fentanyl Screen (Not Detect) Ur Barbiturates Screen (Not Detect) Ur Phencyclidine Scrn (Not Detect) Ur Amphetamines Screen (Not Detect) U Benzodiazepines Scrn (Not Detect) Urine Cocaine Screen (Not Detect) U Marijuana (THC) Screen (Not Detect) Ethyl Alcohol mg/dL COVID-19 ([facility]) (Negative) COVID-19 Clin Com <NANY Mcgovern - Last Filed: 02/21/22 02:41> Lab Results 02/20/22 02/20/22 02/20/22 Range/Units 20:29 20:29 20:29 WBC (4.8-10.8) X10*3/uL RBC (4.20-5.50) X10*6/uL Hgb (12.0-16.0) g/dl Hct (37.0-47.0) % MCV (80.0-98.0) fL MCH (27.0-33.0) pg MCHC (31.0-35.0) g/dl RDW (11.0-16.0) % Plt Count (160-400) X10*3/uL MPV (9.4-12.3) fL Immature Gran % (Auto) (0.0-0.4) % Neut % (Auto) (45-73) % Lymph % (Auto) (20-40) % [place] % (Auto) (2-11) % Eos % (Auto) (0-4) % Baso % (Auto) (0-2) % Lymph # (Auto) (1.2-4.9) X10*3/uL [place] # (Auto) (0.1-1.2) X10*3/uL Eos # (Auto) (0.0-0.4) X10*3/uL Baso # (Auto) (0.0-0.2) X10*3/uL Abs Immat Gran (auto) (0.00-0.03) X10*3/uL Absolute Neuts (auto) (2.0-8.3) x10*3/uL Absolute Nucleated RBC (0.0-0.012) X10*3/uL Nucleated RBC % (auto) (0.0-0.2) /100WBC Sodium (135-145) mmol/L Potassium (3.3-5.1) mmol/L Chloride (96-108) mmol/L Carbon Dioxide (22-29) mmol/L Anion Gap (12-20) BUN (9-16) mg/dL Creatinine (0.5-1.4) mg/dL Estim Creat Clear Calc Estimated GFR Random Glucose (60-115) mg/dL Calcium (8.4-10.2) mg/dL Magnesium (1.6-2.6) mg/dL Total Bilirubin (0.0-1.0) mg/dL AST (5-31) U/L ALT (0-31) U/L Alkaline Phosphatase (39-117) U/L Total Protein (6.5-8.0) g/dL Albumin (3.5-5.0) g/dL Urine Color YELLOW Urine Appearance CLEAR Urine pH 6.5 (5.0-8.0) Ur Specific [place] <= 1.005 (1.005-1.025) Urine Protein NEG (NEG-TRACE) MG/DL Urine Glucose (UA) NEG (NEG) MG/DL Urine Ketones NEG (NEG) MG/DL Urine Blood 1+ H (NEG) Urine Nitrite NEG (NEG) Ur Leukocyte Esterase NEG (NEG) Urine RBC 1-4 (0) /HPF Urine WBC 1-4 (0-4) /HPF Ur Squamous Epith Cells TRACE /LPF Urine Bacteria TRACE /LPF Urine Test NEGATIVE (NEGATIVE) Urine Opiates Screen Not Detected (Not Detect) Urine Fentanyl Screen Not Detected (Not Detect) Ur Barbiturates Screen POSITIVE H (Not Detect) Ur Phencyclidine Scrn Not Detected (Not Detect) Ur Amphetamines Screen Not Detected (Not Detect) U Benzodiazepines Scrn Not Detected (Not Detect) Urine Cocaine Screen Not Detected (Not Detect) U Marijuana (THC) Screen Not Detected (Not Detect) Ethyl Alcohol mg/dL COVID-19 ([facility]) (Negative) COVID-19 Clin Com 02/20/22 02/20/22 02/21/22 Range/Units 20:43 20:54 02:05 WBC 5.6 (4.8-10.8) X10*3/uL RBC 4.30 (4.20-5.50) X10*6/uL Hgb 12.1 (12.0-16.0) g/dl Hct 36.0 L (37.0-47.0) % MCV 83.7 (80.0-98.0) fL MCH 28.1 (27.0-33.0) pg MCHC 33.6 (31.0-35.0) g/dl RDW 13.3 (11.0-16.0) % Plt Count 157 L D (160-400) X10*3/uL MPV 10.0 (9.4-12.3) fL Immature Gran % (Auto) 0.2 (0.0-0.4) % Neut % (Auto) 45.8 (45-73) % Lymph % (Auto) 42.9 H (20-40) % [place] % (Auto) 8.9 (2-11) % Eos % (Auto) 1.8 (0-4) % Baso % (Auto) 0.4 (0-2) % Lymph # (Auto) 2.4 (1.2-4.9) X10*3/uL [place] # (Auto) 0.5 (0.1-1.2) X10*3/uL Eos # (Auto) 0.1 (0.0-0.4) X10*3/uL Baso # (Auto) 0.0 (0.0-0.2) X10*3/uL Abs Immat Gran (auto) 0.01 (0.00-0.03) X10*3/uL Absolute Neuts (auto) 2.6 (2.0-8.3) x10*3/uL Absolute Nucleated RBC 0.000 (0.0-0.012) X10*3/uL Nucleated RBC % (auto) 0.0 (0.0-0.2) /100WBC Sodium (135-145) mmol/L Potassium (3.3-5.1) mmol/L Chloride (96-108) mmol/L Carbon Dioxide (22-29) mmol/L Anion Gap (12-20) BUN (9-16) mg/dL Creatinine (0.5-1.4) mg/dL Estim Creat Clear Calc Estimated GFR Random Glucose (60-115) mg/dL Calcium (8.4-10.2) mg/dL Magnesium (1.6-2.6) mg/dL Total Bilirubin (0.0-1.0) mg/dL AST (5-31) U/L ALT (0-31) U/L Alkaline Phosphatase (39-117) U/L Total Protein (6.5-8.0) g/dL Albumin (3.5-5.0) g/dL Urine Color Urine Appearance Urine pH (5.0-8.0) Ur Specific [place] (1.005-1.025) Urine Protein (NEG-TRACE) MG/DL Urine Glucose (UA) (NEG) MG/DL Urine Ketones (NEG) MG/DL Urine Blood (NEG) Urine Nitrite (NEG) Ur Leukocyte Esterase (NEG) Urine RBC (0) /HPF Urine WBC (0-4) /HPF Ur Squamous Epith Cells /LPF Urine Bacteria /LPF Urine Test (NEGATIVE) Urine Opiates Screen (Not Detect) Urine Fentanyl Screen (Not Detect) Ur Barbiturates Screen (Not Detect) Ur Phencyclidine Scrn (Not Detect) Ur Amphetamines Screen (Not Detect) U Benzodiazepines Scrn (Not Detect) Urine Cocaine Screen (Not Detect) U Marijuana (THC) Screen (Not Detect) Ethyl Alcohol 390 H* mg/dL COVID-19 ([facility]) Negative (Negative) COVID-19 Clin Com See Note 02/21/22 Range/Units 02:05 WBC (4.8-10.8) X10*3/uL RBC (4.20-5.50) X10*6/uL Hgb (12.0-16.0) g/dl Hct (37.0-47.0) % MCV (80.0-98.0) fL MCH (27.0-33.0) pg MCHC (31.0-35.0) g/dl RDW (11.0-16.0) % Plt Count (160-400) X10*3/uL MPV (9.4-12.3) fL Immature Gran % (Auto) (0.0-0.4) % Neut % (Auto) (45-73) % Lymph % (Auto) (20-40) % [place] % (Auto) (2-11) % Eos % (Auto) (0-4) % Baso % (Auto) (0-2) % Lymph # (Auto) (1.2-4.9) X10*3/uL [place] # (Auto) (0.1-1.2) X10*3/uL Eos # (Auto) (0.0-0.4) X10*3/uL Baso # (Auto) (0.0-0.2) X10*3/uL Abs Immat Gran (auto) (0.00-0.03) X10*3/uL Absolute Neuts (auto) (2.0-8.3) x10*3/uL Absolute Nucleated RBC (0.0-0.012) X10*3/uL Nucleated RBC % (auto) (0.0-0.2) /100WBC Sodium 140 (135-145) mmol/L Potassium 4.2 (3.3-5.1) mmol/L Chloride 101 (96-108) mmol/L Carbon Dioxide 29 (22-29) mmol/L Anion Gap 14 (12-20) BUN 6 L (9-16) mg/dL Creatinine 0.68 (0.5-1.4) mg/dL Estim Creat Clear Calc 103.4 Estimated GFR > 60 Random Glucose 84 (60-115) mg/dL Calcium 8.5 D (8.4-10.2) mg/dL Magnesium 1.9 (1.6-2.6) mg/dL Total Bilirubin 0.3 (0.0-1.0) mg/dL AST 30 (5-31) U/L ALT 19 (0-31) U/L Alkaline Phosphatase 63 D (39-117) U/L Total Protein 7.3 (6.5-8.0) g/dL Albumin 4.3 (3.5-5.0) g/dL Urine Color Urine Appearance Urine pH (5.0-8.0) Ur Specific [place] (1.005-1.025) Urine Protein (NEG-TRACE) MG/DL Urine Glucose (UA) (NEG) MG/DL Urine Ketones (NEG) MG/DL Urine Blood (NEG) Urine Nitrite (NEG) Ur Leukocyte Esterase (NEG) Urine RBC (0) /HPF Urine WBC (0-4) /HPF Ur Squamous Epith Cells /LPF Urine Bacteria /LPF Urine Test (NEGATIVE) Urine Opiates Screen (Not Detect) Urine Fentanyl Screen (Not Detect) Ur Barbiturates Screen (Not Detect) Ur Phencyclidine Scrn (Not Detect) Ur Amphetamines Screen (Not Detect) U Benzodiazepines Scrn (Not Detect) Urine Cocaine Screen (Not Detect) U Marijuana (THC) Screen (Not Detect) Ethyl Alcohol mg/dL COVID-19 ([facility]) (Negative) COVID-19 Clin Com <Jason Knutson MD - Last Filed: 02/21/22 08:03> Critical Care Time Critical Care Time Critical Care Time: No <NANY Mcgovern - Last Filed: 02/21/22 02:41> Discharge Plan Discharge Clinical Impression: Alcohol use disorder, Hallucinations <NANY Mcgovern - Last Filed: 02/21/22 02:41> Patient Disposition: Home, Self-Care <NANY Mcgovern - Last Filed: 02/21/22 02:41> Instructions: Abuse of Alcohol (DC) <NANY Mcgovern - Last Filed: 02/21/22 02:41> Prescriptions: No Action No Known Home Meds 0RF <NANY Mcgovern - Last Filed: 02/21/22 02:41> Referrals: Mike Franks MD [Primary Care Provider] - 5 days <NANY Mcgovern - Last Filed: 02/21/22 02:41>
[2022-02-20 20:58] LABS: Amphetamine Screen Urine Not Detected (Not Detect); Barbiturates, Urine POSITIVE (Not Detect); Benzodiazepines Screen Urine Not Detected (Not Detect); Cannabinoid Screen Urine Not Detected (Not Detect); Cocaine Screen Urine Not Detected (Not Detect); Fentanyl, urine Not Detected (Not Detect); Opiate Screen Urine Not Detected (Not Detect); Phencyclidine Screen Urine Not Detected (Not Detect)
[2022-02-20] MEDS: LORazepam 1 MG TABLET 2 MG PO (21:08)
[2022-02-20 21:11] LABS: Ethanol 390 mg/dL
[2022-02-20 21:13] LABS: COVID-19 Test Negative (Negative)
[2022-02-20 21:23] LABS: Bacteria Urine TRACE /LPF; Squamous Epithelial Cell Urine TRACE /LPF
[2022-02-20] MEDS: HaloperidoL 5 MG TABLET PO (23:13)
--- NOTE | 2022-02-21 00:25 | PC.NURSE ---
Patient was extremely restless, unable to follow up direction, fall risk, patient is on 1:1 for observation, Ativan 2 mg @ 2107 and Haldol 5 mg at 2312, with + effect, patient is currently in bed appears sleeping, asymptomatic of withdrawal, will continue to monitor.
[2022-02-21 02:11] LABS: MANUAL DIFF FLAG NO
[2022-02-21 02:13] LABS: Basophils Percent Auto 0.4 % (0-2); Eosinophils Absolute Auto 0.1 X10*3/uL (0.0-0.4); Eosinophils Percent Auto 1.8 % (0-4); Hemoglobin 12.1 g/dl (12.0-16.0); Imm Gran Abs Auto 0.01 X10*3/uL (0.00-0.03); Imm Gran Pct Auto 0.2 % (0.0-0.4); Lymphocytes Absolute Auto 2.4 X10*3/uL (1.2-4.9); Lymphocytes Percent Auto 42.9 % (20-40); Mean Corpuscular HGB Conc 33.6 g/dl (31.0-35.0); Mean Corpuscular Hemoglobin 28.1 pg (27.0-33.0); Mean Corpuscular Volume 83.7 fL (80.0-98.0); Monocytes Absolute Auto 0.5 X10*3/uL (0.1-1.2); Monocytes Percent Auto 8.9 % (2-11); Neutrophils Absolute Auto 2.6 x10*3/uL (2.0-8.3); Neutrophils Percent Auto 45.8 % (45-73); Platelet Count 157 X10*3/uL (160-400); Red Cell Distribution Width 13.3 % (11.0-16.0); White Blood Count 5.6 X10*3/uL (4.8-10.8)
[2022-02-21 02:28] LABS: Alanine Aminotransferase 19 U/L (0-31); Albumin Level 4.3 g/dL (3.5-5.0); Alkaline Phosphatase 63 U/L (39-117); Anion Gap 14 (12-20); Aspartate Amino Transferase 30 U/L (5-31); Bilirubin Total 0.3 mg/dL (0.0-1.0); Blood Urea Nitrogen 6 mg/dL (9-16); Calcium 8.5 mg/dL (8.4-10.2); Carbon Dioxide 29 mmol/L (22-29); Chloride 101 mmol/L (96-108); Creatinine Clr Calc Pharmacy 103.4; Estimated Glomerular Filt Rate > 60; Glucose Random 84 mg/dL (60-115); Magnesium 1.9 mg/dL (1.6-2.6); Potassium 4.2 mmol/L (3.3-5.1); Sodium 140 mmol/L (135-145); Total Protein 7.3 g/dL (6.5-8.0)
[2022-02-21 06:19] VITALS: BP 113/77; PULSE 87; RESP 16; TEMP 36.6; O2SAT 98
--- NOTE | 2022-02-21 07:40 | PC.NURSE ---
Patient slept through the night, no distress observed/reported, behavior non concerning at this time, coherent thought process medication compliant, will continue to monitor.
--- NOTE | 2022-02-21 08:15 | PC.NURSE ---
Pt A&OX4, calm and cooperative this AM, plan for DC as she has detox program set up for this afternoon.
--- NOTE | 2022-02-21 09:58 | MHC.CARE ---
Risk Assessment: Pt denied current SI/HI/AH/VH. Pt has tentative plan to go to [facility] at 2pm for counseling intake appt. CARE Team discussed plan with Dr. Knutson who is in agreement.
== END 2022-02-21 08:16 | disposition home or self-care (01) ==
PROVIDERS: Physician Assistant; Emergency Provider Emergency Medicine Emergency Medical Services; PCP Internal Medicine
DX: F33.1 Major depressive disorder, recurrent, moderate (principal); F10.239 Alcohol dependence with withdrawal, unspecified; F41.9 Anxiety disorder, unspecified; Y90.8 Blood alcohol level of 240 mg/100 ml or more; Z20.822 Contact with and (suspected) exposure to COVID-19; Z79.899 Other long term (current) drug therapy
CPT/HCPCS: 36415; 80053; 80307; 81001; 81025; 82077; 83735; 85025; 87635; 99284

== ENCOUNTER 2022-03-22 14:12 | Outpatient (REF) | payer OTHER, SELFPAY | END 2022-03-22 14:13 | disposition home or self-care (01) | LOC: HO.LAB 14:12 | PROVIDERS: PCP Internal Medicine; Visit Provider Internal Medicine | DX: Z13.89 Encounter for screening for other disorder (principal) ==

== ENCOUNTER 2022-03-30 14:11 | Outpatient (REF) | payer OTHER, SELFPAY ==
[2022-03-30 14:27] LABS: MANUAL DIFF FLAG NO
[2022-03-30 14:36] LABS: Basophils Percent Auto 0.3 % (0-2); Eosinophils Percent Auto 0.2 % (0-4); Hematocrit 40.1 % (37.0-47.0); Imm Gran Abs Auto 0.02 X10*3/uL (0.00-0.03); Imm Gran Pct Auto 0.3 % (0.0-0.4); Lymphocytes Percent Auto 16.2 % (20-40); Mean Corpuscular HGB Conc 32.4 g/dl (31.0-35.0); Mean Corpuscular Hemoglobin 27.7 pg (27.0-33.0); Mean Corpuscular Volume 85.5 fL (80.0-98.0); Mean Platelet Volume 10.4 fL (9.4-12.3); Monocytes Absolute Auto 0.6 X10*3/uL (0.1-1.2); Monocytes Percent Auto 9.6 % (2-11); Neutrophils Absolute Auto 4.4 x10*3/uL (2.0-8.3); Neutrophils Percent Auto 73.4 % (45-73); Platelet Count 172 X10*3/uL (160-400); Red Blood Count 4.69 X10*6/uL (4.20-5.50); Red Cell Distribution Width 14.3 % (11.0-16.0)
[2022-03-30 14:59] LABS: Alanine Aminotransferase 11 U/L (0-31); Albumin Level 4.4 g/dL (3.5-5.0); Alkaline Phosphatase 72 U/L (39-117); Anion Gap 10 (12-20); Aspartate Amino Transferase 20 U/L (5-31); Bilirubin Total 0.5 mg/dL (0.0-1.0); Blood Urea Nitrogen 6 mg/dL (9-16); Calcium 9.6 mg/dL (8.4-10.2); Carbon Dioxide 27 mmol/L (22-29); Chloride 103 mmol/L (96-108); Estimated Glomerular Filt Rate > 60; Glucose Random 115 mg/dL (60-115); Potassium 4.4 mmol/L (3.3-5.1); Sodium 136 mmol/L (135-145); Total Protein 7.8 g/dL (6.5-8.0)
[2022-03-30 15:06] LABS: HCG Quantitative < 2 mIU/mL
[2022-03-31 04:59] LABS: CT PCR NOT DETECTED (Not Detect.); NG PCR NOT DETECTED (Not Detect.)
[2022-03-31 05:57] LABS: HIV AB/AG Nonreactive (Nonreactive); HIV Num 1 0.07 S/CO (0.00-0.99)
== END 2022-03-30 14:12 | disposition home or self-care (01) ==
LOC: HO.LAB 14:11
PROVIDERS: PCP Internal Medicine; Visit Provider Internal Medicine
DX: R10.9 Unspecified abdominal pain (principal); R53.1 Weakness; R30.0 Dysuria
CPT/HCPCS: 80053; 84702; 85025; 86140; 87389; 87491; 87591

== ENCOUNTER 2022-03-31 16:29 | Outpatient (REF) | payer OTHER, SELFPAY ==
[2022-03-31 16:56] LABS: Appearance Urine CLEAR; Color Urine YELLOW; Glucose Urine UA NEG (NEG); Leukocyte Esterase Urine NEG (NEG); Nitrite Urine NEG (NEG); Urine Blood NEG (NEG); Urine Ketones 5 MG/DL (NEG); Urine Protein NEG (NEG-TRACE)
[2022-03-31 16:59] LABS: RBC Urine 0 /HPF (0); Squamous Epithelial Cell Urine 1+ /LPF; WBC Urine 0 /HPF (0-4)
== END 2022-03-31 16:30 | disposition home or self-care (01) ==
LOC: HO.LNP 16:29
PROVIDERS: Visit Provider Internal Medicine
DX: R10.9 Unspecified abdominal pain (principal); R53.1 Weakness; R30.0 Dysuria
CPT/HCPCS: 81001; 87086

== ENCOUNTER 2022-07-03 22:35 | Emergency (ER) | payer OTHER, SELFPAY ==
[2022-07-03 22:59] VITALS: BP 138/94; PULSE 118; RESP 18; TEMP 36.8; O2SAT 97; BMI 29.0
[2022-07-03] MEDS: Haloperidol Lactate 5 MG/ML VIAL IM (23:21)
[2022-07-03] MEDS: Ziprasidone Mesylate 20 MG VIAL IM (23:21)
[2022-07-03] MEDS: diphenhydrAMINE HCL 50 MG/ML VIAL IM (23:22)
--- NOTE | 2022-07-03 23:45 | PC.NURSE ---
[place] [facility] [place], a&ox3, vss -sinus tach, security brought pt in, making SI statements w no plan, ETOH, hx alcohol withdrawal w seizures, pt medicated by RN cellars supervisor, 1:1 at bedside. pt asleep before we were able to exchange trouble shooter/get labs.
[2022-07-04 00:45] LABS: Basophils Absolute Auto 0.1 X10*3/uL (0.0-0.2); Eosinophils Percent Auto 0.5 % (0-4); Hematocrit 39.2 % (37.0-47.0); Hemoglobin 12.6 g/dl (12.0-16.0); Imm Gran Abs Auto 0.01 X10*3/uL (0.00-0.03); Imm Gran Pct Auto 0.2 % (0.0-0.4); Lymphocytes Absolute Auto 2.2 X10*3/uL (1.2-4.9); MANUAL DIFF FLAG NO; Mean Corpuscular HGB Conc 32.1 g/dl (31.0-35.0); Mean Corpuscular Hemoglobin 26.5 pg (27.0-33.0); Mean Corpuscular Volume 82.4 fL (80.0-98.0); Mean Platelet Volume 9.5 fL (9.4-12.3); Monocytes Absolute Auto 0.3 X10*3/uL (0.1-1.2); Monocytes Percent Auto 5.4 % (2-11); Neutrophils Absolute Auto 3.2 x10*3/uL (2.0-8.3); Neutrophils Percent Auto 54.9 % (45-73); Platelet Count 331 X10*3/uL (160-400); Red Blood Count 4.76 X10*6/uL (4.20-5.50); Red Cell Distribution Width 16.3 % (11.0-16.0); White Blood Count 5.8 X10*3/uL (4.8-10.8)
[2022-07-04 01:04] LABS: Alanine Aminotransferase 15 U/L (0-31); Albumin Level 4.1 g/dL (3.5-5.0); Alkaline Phosphatase 50 U/L (39-117); Anion Gap 18 (12-20); Aspartate Amino Transferase 28 U/L (5-31); Bilirubin Total 0.2 mg/dL (0.0-1.0); Blood Urea Nitrogen 10 mg/dL (9-16); Calcium 8.5 mg/dL (8.4-10.2); Carbon Dioxide 23 mmol/L (22-29); Chloride 107 mmol/L (96-108); Creatinine Clr Calc Pharmacy 118.7; Estimated Glomerular Filt Rate > 60; Ethanol 401 mg/dL; Glucose Random 95 mg/dL (60-115); Potassium 4.2 mmol/L (3.3-5.1); Sodium 144 mmol/L (135-145); Total Protein 7.5 g/dL (6.5-8.0)
[2022-07-04 01:13] VITALS: BP 121/77; PULSE 119; RESP 16; O2SAT 96
--- NOTE | 2022-07-04 01:58 | PC.NURSE ---
pt sleeping, resp even and unlabored, 1:1 at bedside.
--- NOTE | 2022-07-04 02:10 | ED_ITS ---
HPI - Psych General Chief Complaint: ETOH/Substance Use <NANY Stewart - Last Filed: 07/04/22 02:15> Stated Complaint: etoh? <NANY Stewart - Last Filed: 07/04/22 02:15> Time Seen by Provider: 07/03/22 22:47 <NANY Stewart - Last Filed: 07/04/22 02:15> Source: patient <NANY Stewart Last Filed: 07/04/22 02:15> Mode of arrival: ambulatory <NANY Stewart - Last Filed: 07/04/22 02:15> Limitations: no limitations <NANY Stewart Last Filed: 07/04/22 02:15> History of Present Illness HPI Narrative: Patient brought to the ED for suicidal ideation. Patient drinking alcohol. Mother concerned, patient to be evaluated. Patient tried to elope from the ER. Patient placed in Section 12 given meds. <NANY Stewart Last Filed: 07/04/22 02:15> Related Data Home Medications: Home Medications Medication Instructions Recorded Confirmed No Known Home Meds 12/20/21 12/20/21 <NANY Stewart - Last Filed: 07/04/22 02:15> Allergies/Adverse Reactions: Allergies Allergy/AdvReac Type Severity Reaction Status Date / Time No Known Allergies Allergy Verified 07/03/22 22:59 [No Known Allergies*] <NANY Stewart Last Filed: 07/04/22 02:15> Review of Systems Review of Systems: Alcohol intox. Suicidal statements. <NANY Stewart Last Filed: 07/04/22 02:15> [facility] Past Medical History Medical History: Medical History Alcohol abuse with withdrawal delirium Alcohol use disorder Alcohol withdrawal delirium Alcohol withdrawal seizure Alcoholism Anxiety Bulimia Chronic post-traumatic stress disorder (PTSD) Depression SANDY (generalized anxiety disorder) MDD (major depressive disorder), recurrent episode, moderate MDD (major depressive disorder), recurrent episode, severe Panic attack <NANY Stewart Last Filed: 07/04/22 02:15> Family History Family History: Family History Brother Substance abuse <NANY Stewart - Last Filed: 07/04/22 02:15> Social History Social History: Social History Household Members: Family Housing: Apartment Do you presently have visiting nurse or other home services: No Alcohol intake: current Alcohol intake frequency: 3 or more drinks per day Alcohol type: beer and hard liquor Patient Tobacco Use Status: Never used Tobacco Smoked in Last 30 Days: No e-Cigarette/Vaping Use: Never Used Second Hand Smoke Exposure: No Use of substances other than those prescribed or required for medical reasons: No Substance Use Type: Marijuana Advance Directives: No Advance Directives Information Provided: No service: No Current occupational status: unemployed Sexual orientation: Straight/Heterosexual <NANY Stewart - Last Filed: 07/04/22 02:15> Physical Exam Vital Signs: Vital Signs: Last Vital Signs Temp 98.3 F 07/03/22 22:59 Pulse 119 H 07/04/22 01:13 Resp 16 07/04/22 01:13 BP 121/77 07/04/22 01:13 Pulse Ox 96 07/04/22 01:13 O2 Del Method 07/04/22 01:13 BMI result Body Mass Index 29.0 <NANY Stewart - Last Filed: 07/04/22 02:15> Vital Signs: Last Vital Signs Temp 98.3 F 07/03/22 22:59 Pulse 119 H 07/04/22 01:13 Resp 16 07/04/22 01:13 BP 121/77 07/04/22 01:13 Pulse Ox 96 07/04/22 01:13 O2 Del Method 07/04/22 01:13 BMI result Body Mass Index 29.0 <Viviana Ervin MD - Last Filed: 07/04/22 06:38> Const: General: intoxicated appearing <NANY Stewart - Last Filed: 07/04/22 02:15> HEENT: Head: Yes normal to inspection, Yes No palpable skull fracture present, Yes normocephalic, Yes atraumatic and No abrasion <NANY Stewart - Last Filed: 07/04/22 02:15> Eyes: General: appearance normal, both eyes and all related structures <Aaron MichaelNANY Last Filed: 07/04/22 02:15> Neck: Neck: Yes normal visual inspection, Yes full ROM, Yes no lymphadenopathy, Yes no meningeal signs, Yes trachea midline, Yes supple, No anterior neck swelling and No tender <Aaron Michael [facility] Last Filed: 07/04/22 02:15> Chest: Chest palpation & inspection: normal inspection of the chest and normal palpation of entire chest wall <Aaron Michael [facility] Last Filed: 07/04/22 02:15> Resp: Effort & Inspection: normal respiratory effort and able to speak in complete sentences <Aaron Michael [facility] Last Filed: 07/04/22 02:15> Auscultation: clear to auscultation bilaterally <Aaron Michael, [facility] Last Filed: 07/04/22 02:15> Cardio: Jugular venous distension: no JVD <Aaron Michael [facility] Last Filed: 07/04/22 02:15> Heart sounds: S1 normal heart sound present and S2 normal heart sound present <Aaron Michael [facility] Last Filed: 07/04/22 02:15> GI: Inspection: Yes normal to inspection and No abdominal wall ecchymosis <Aaron Michael [facility] Last Filed: 07/04/22 02:15> Palpation (GI): Soft to palpation, not firm, nontender, no guarding and not rigid <Aaron Michael [facility] Last Filed: 07/04/22 02:15> : General: No CVA tenderness and Yes no CVA tenderness <Aaron Michael, [facility] Last Filed: 07/04/22 02:15> Back/Spine/Pelvis: Back: no CVA tenderness, No CVA tenderness and No back tenderness <Aaron Michael, [facility] Last Filed: 07/04/22 02:15> Skin: General skin exam: no rashes or lesions noted and elasticity normal <Aaron Michael, [facility] Last Filed: 07/04/22 02:15> Neuro: Other: Alcohol on breath <Aaron Michael, [facility] Last Filed: 07/04/22 02:15> General: no meningeal signs <Aaron Michael, [facility] Last Filed: 07/04/22 02:15> Extrem: General: Yes normal to inspection and Yes full ROM <NANY Stewart - Last Filed: 07/04/22 02:15> Psych: Appearance: grossly normal, well kempt and not disheveled <NANY Stewart - Last Filed: 07/04/22 02:15> Course Course Course Narrative: Alcohol on breath labs ordered. Patient to be sedated. Section 12 signed. Consult crisis placed <NANY Stewart - Last Filed: 07/04/22 02:15> Reevaluation(s) Reevaluation #1: Alcohol level 401. Patient to be evaluated when sober by I and <NANY Stewart - Last Filed: 07/04/22 02:15> Time: 02:13 <NANY Stewart - Last Filed: 07/04/22 02:15> Reevaluation #2: Patient had an uneventful night. At 00:40, patient's blood alcohol level was 401. Patient remains on a Section 12 due to suicidal statements. It is possible that patient may have made the statements while she was intoxicated. [facility] consult pending. Patient's heart rate is at this time 90, patient's vitals have not been updated. Sign-out given to Dr. Arevalo <Viviana Ervin MD - Last Filed: 07/04/22 06:38> Time: 06:36 <Viviana Ervin MD - Last Filed: 07/04/22 06:38> MDM - Psych MDM Narrative Medical decision making narrative: Alcohol intox <NANY Stewart - Last Filed: 07/04/22 02:15> Lab Data Result diagrams: : 07/04/22 00:40 07/04/22 00:40 <NANY Stewart - Last Filed: 07/04/22 02:15> Labs: Lab Results 07/04/22 07/04/22 Range/Units 00:40 00:40 WBC 5.8 (4.8-10.8) X10*3/uL RBC 4.76 (4.20-5.50) X10*6/uL Hgb 12.6 (12.0-16.0) g/dl Hct 39.2 (37.0-47.0) % MCV 82.4 (80.0-98.0) fL MCH 26.5 L (27.0-33.0) pg MCHC 32.1 (31.0-35.0) g/dl RDW 16.3 H (11.0-16.0) % Plt Count 331 D (160-400) X10*3/uL MPV 9.5 (9.4-12.3) fL Immature Gran % (Auto) 0.2 (0.0-0.4) % Neut % (Auto) 54.9 (45-73) % Lymph % (Auto) 38.0 (20-40) % [place] % (Auto) 5.4 (2-11) % Eos % (Auto) 0.5 (0-4) % Baso % (Auto) 1.0 (0-2) % Lymph # (Auto) 2.2 (1.2-4.9) X10*3/uL [place] # (Auto) 0.3 (0.1-1.2) X10*3/uL Eos # (Auto) 0.0 (0.0-0.4) X10*3/uL Baso # (Auto) 0.1 (0.0-0.2) X10*3/uL Abs Immat Gran (auto) 0.01 (0.00-0.03) X10*3/uL Absolute Neuts (auto) 3.2 (2.0-8.3) x10*3/uL Absolute Nucleated RBC 0.000 (0.0-0.012) X10*3/uL Nucleated RBC % (auto) 0.0 (0.0-0.2) /100WBC Sodium 144 (135-145) mmol/L Potassium 4.2 (3.3-5.1) mmol/L Chloride 107 (96-108) mmol/L Carbon Dioxide 23 (22-29) mmol/L Anion Gap 18 (12-20) BUN 10 D (9-16) mg/dL Creatinine 0.74 (0.5-1.4) mg/dL Estim Creat Clear Calc 118.7 Estimated GFR > 60 Random Glucose 95 (60-115) mg/dL Calcium 8.5 D (8.4-10.2) mg/dL Total Bilirubin 0.2 (0.0-1.0) mg/dL AST 28 (5-31) U/L ALT 15 (0-31) U/L Alkaline Phosphatase 50 D (39-117) U/L Total Protein 7.5 (6.5-8.0) g/dL Albumin 4.1 (3.5-5.0) g/dL Ethyl Alcohol 401 H* mg/dL <NANY Stewart - Last Filed: 07/04/22 02:15> Lab Results 07/04/22 07/04/22 Range/Units 00:40 00:40 WBC 5.8 (4.8-10.8) X10*3/uL RBC 4.76 (4.20-5.50) X10*6/uL Hgb 12.6 (12.0-16.0) g/dl Hct 39.2 (37.0-47.0) % MCV 82.4 (80.0-98.0) fL MCH 26.5 L (27.0-33.0) pg MCHC 32.1 (31.0-35.0) g/dl RDW 16.3 H (11.0-16.0) % Plt Count 331 D (160-400) X10*3/uL MPV 9.5 (9.4-12.3) fL Immature Gran % (Auto) 0.2 (0.0-0.4) % Neut % (Auto) 54.9 (45-73) % Lymph % (Auto) 38.0 (20-40) % Bucks % (Auto) 5.4 (2-11) % Eos % (Auto) 0.5 (0-4) % Baso % (Auto) 1.0 (0-2) % Lymph # (Auto) 2.2 (1.2-4.9) X10*3/uL Bucks # (Auto) 0.3 (0.1-1.2) X10*3/uL Eos # (Auto) 0.0 (0.0-0.4) X10*3/uL Baso # (Auto) 0.1 (0.0-0.2) X10*3/uL Abs Immat Gran (auto) 0.01 (0.00-0.03) X10*3/uL Absolute Neuts (auto) 3.2 (2.0-8.3) x10*3/uL Absolute Nucleated RBC 0.000 (0.0-0.012) X10*3/uL Nucleated RBC % (auto) 0.0 (0.0-0.2) /100WBC Sodium 144 (135-145) mmol/L Potassium 4.2 (3.3-5.1) mmol/L Chloride 107 (96-108) mmol/L Carbon Dioxide 23 (22-29) mmol/L Anion Gap 18 (12-20) BUN 10 D (9-16) mg/dL Creatinine 0.74 (0.5-1.4) mg/dL Estim Creat Clear Calc 118.7 Estimated GFR > 60 Random Glucose 95 (60-115) mg/dL Calcium 8.5 D (8.4-10.2) mg/dL Total Bilirubin 0.2 (0.0-1.0) mg/dL AST 28 (5-31) U/L ALT 15 (0-31) U/L Alkaline Phosphatase 50 D (39-117) U/L Total Protein 7.5 (6.5-8.0) g/dL Albumin 4.1 (3.5-5.0) g/dL Ethyl Alcohol 401 H* mg/dL <Viviana Ervin MD - Last Filed: 07/04/22 06:38> Discharge Plan Discharge Clinical Impression: Alcoholic intoxication <NANY Stewart - Last Filed: 07/04/22 02:15> Patient Disposition: Still a Patient <NANY Stewart - Last Filed: 07/04/22 02:15> Prescriptions: No Action No Known Home Meds <NANY Stewart - Last Filed: 07/04/22 02:15>
--- NOTE | 2022-07-04 07:38 | PC.NURSE ---
smart sheet completed on pt
[2022-07-04 09:22] VITALS: BP 125/79; PULSE 97; RESP 16; O2SAT 97
[2022-07-04 09:32] LABS: IDNOW Serial# 16C4AD1C
[2022-07-04 09:33] LABS: COVID-19 Test Negative (Negative)
--- NOTE | 2022-07-04 12:52 | MHC.RECOVSUP ---
? Reason for consult:Recovery Support o Current location:ED [address] o Identified substance use concern:EToh - Support ? Intervention: o Community resources provided o Harm reduction discussion ? Plan: o Referral to CCC o Patient to follow up with [facility] after discharge ? Additional information:Patient refuses detox, patient was recently in detox and met a community living coach from [facility]. Patiient to f/u with [facility] and [facility].
--- NOTE | 2022-07-04 13:58 | MHC.CARE ---
CARE team met with pt to assess her level of risk for potential harm to herself or others. Pt is a 31 year old female who was brought to the ED last night by her mother after she was found in a park under the influence of alcohol. She endorsed increased stress and depression with vague SI, no plan. Pt's ethanol level was 401 at 12:40am. Pt is clinically appropriate for assessment at this time. Pt is known to the CARE team and the hospital from previous visits related to alcohol intoxication. Historically her suicidal thoughts are in the context of her alcohol use and associated feelings of hopelessness and helplessness while she is under the influence. Pt reported that she had been sober for 3 weeks following a medical admission at [facility] for alcohol withdrawal last month. She started drinking again a few days ago at the slightest thing that happened. Pt has a history of significant withdrawals with seizures, most recently prior to her [facility] admission. She denied SI/HI/AVH and has no history of attempts. Pt reported that she completed an intake at [facility] for therapy about one month ago and is on a waitlist. She was assigned a value stream coach through [employer] ([place]) and plans to call to schedule their first meeting when she gets home. Pt is interested in [facility] and [facility] support groups and was given information for both. This loan underwriter recommended that the pt consider PHP once she has 1-2 weeks of sobriety and was given information for this as well. Jen George APRN met with the pt to discuss alcohol use/withdrawal prevention and recommended that the pt return to the hospital tomorrow morning for [facility] walk [facility] hours for MAT. ED physician updated re: recommendations. Pt is stable for discharge home and contacted her father to come pick her up.
== END 2022-07-04 15:34 | disposition home or self-care (01) ==
PROVIDERS: Emergency Medicine; Physician Assistant; Emergency Provider Emergency Medicine; PCP Internal Medicine
DX: R45.851 Suicidal ideations (principal); F10.129 Alcohol abuse with intoxication, unspecified; Y90.8 Blood alcohol level of 240 mg/100 ml or more; Z20.822 Contact with and (suspected) exposure to COVID-19; Z79.899 Other long term (current) drug therapy
CPT/HCPCS: 36415; 80053; 82077; 85025; 87635; 96372; 99284; J1200; J3486

== ENCOUNTER 2022-07-11 22:17 | Emergency (ER) | payer OTHER, SELFPAY ==
--- NOTE | ~2022-07-11 | CT_ITS ---
EXAMINATION: CT HEAD WITHOUT CONTRAST CT CERVICAL SPINE WITHOUT CONTRAST CLINICAL INFORMATION: Fall down 13 stairs. Intoxicated. COMPARISON: CT head from 03/30/2020. CT head and cervical spine from 01/18/2018. TECHNIQUE: Contiguous axial imaging was performed from the skull base to vertex without intravenous administration of contrast. Contiguous axial imaging was performed from the upper chest through the skull base without intravenous administration of contrast. Coronal and sagittal reformats were obtained at the acquisition workstation. This CT examination was performed using dose optimization techniques as appropriate, variously including the following: *Automated exposure control. *Adjustment of mA and/or kV according to patient size (this includes techniques or standardized protocols for targeted exams where dose is matched to indication/reason for exam; i.e. extremities or head). *Use of iterative reconstruction technique. DLP: 1060 mGy-cm FINDINGS: Head: There is no evidence of acute intracranial hemorrhage or edematous territorial infarction. There is no abnormal attenuation within the brain parenchyma. Ugarte-white matter differentiation is preserved. The ventricles are normal in size and configuration. No evidence for obstructive hydrocephalus. No abnormal mass effect or midline shift. No extra-axial fluid collections. No acute soft tissue or osseous abnormalities. Mild mucosal thickening of the paranasal sinuses. Mild rightward nasal septal deviation. The mastoid air cells and middle ear cavities are clear. Cervical Spine: The atlantooccipital and atlantoaxial articulations remain well aligned. Straightening of the normal cervical lordosis. Otherwise, there is anatomic alignment of the vertebral bodies and posterior elements. No evidence of acute fracture or subluxation. The vertebral body heights and disc spaces are maintained. There is no prevertebral soft tissue swelling. The thyroid gland and remaining cervical soft tissues are normal in appearance. The lung apices demonstrate no abnormalities. CT/CT cervical spine wo con IMPRESSION: 1. No acute intracranial hemorrhage or edematous territorial infarction. 2. No evidence of acute fracture or traumatic subluxation of the cervical spine.
[2022-07-11 22:21] VITALS: BP 124/74; BP 133/93; PULSE 101; PULSE 107; RESP 18; TEMP 37.3; O2SAT 97; O2SAT 98; BMI 26.9
--- NOTE | 2022-07-11 22:22 | ED.TRAUMA ---
HPI - Trauma General Chief Complaint: Fall Stated Complaint: etoh fall a flight of stair Time Seen by Provider: 07/11/22 22:21 Source: patient and EMS Mode of arrival: EMS Limitations: no limitations and other (Intoxicated) History of Present Illness HPI narrative: Intoxicated patient fell down stairs and hit her head. Unknown LOC. MD complaint: fall Onset (ago): minute(s) Loss of Consciousness: unsure Location: head Associated symptoms: denies other symptoms Related Data Home Medications Medication Instructions Recorded Confirmed No Known Home Meds 12/20/21 12/20/21 Allergies Allergy/AdvReac Type Severity Reaction Status Date / Time No Known Allergies Allergy Verified 07/03/22 22:59 [No Known Allergies*] Review of Systems Constitutional: Constitutional: Reports no additional constitutional complaints Eyes: Eyes: Reports no additional eye complaints ENT: Denies dizziness Cardiovascular: Cardiovascular: Reports no additional cardiovascular complaints Respiratory: Respiratory: Reports as per HPI Gastrointestinal: Gastrointestinal: Reports no additional gastrointestinal complaints Genitourinary: Genitourinary: Reports no additional female genitourinary complaints Musculoskeletal: Musculoskeletal: Reports no additional musculoskeletal complaints Integumentary/Breasts: Skin/Breast: Denies rash Neurologic: Reports system reviewed and no additional complaints, except as documented, Denies dizziness and Denies Sensory deficit (Neuro) Psychiatric: Psychiatric: Denies anxiety PMFSH Past Medical History Medical History Alcohol abuse with withdrawal delirium Alcohol use disorder Alcohol withdrawal delirium Alcohol withdrawal seizure Alcoholism Anxiety Bulimia Chronic post-traumatic stress disorder (PTSD) Depression SANDY (generalized anxiety disorder) MDD (major depressive disorder), recurrent episode, moderate MDD (major depressive disorder), recurrent episode, severe Panic attack Family History Family History Brother Substance abuse Social History Social History Household Members: Family Housing: Apartment Do you presently have visiting nurse or other home services: No Alcohol intake: current Alcohol intake frequency: 3 or more drinks per day Alcohol type: beer and hard liquor Patient Tobacco Use Status: Never used Tobacco e-Cigarette/Vaping Use: Never Used Second Hand Smoke Exposure: No Substance Use Type: Marijuana Advance Directives: No Advance Directives Information Provided: No service: No Current occupational status: unemployed Sexual orientation: Straight/Heterosexual Physical Exam Vital Signs: Vital Signs: Last Vital Signs Temp 99.2 F 07/11/22 22:21 Pulse 97 07/12/22 01:39 Resp 14 07/12/22 01:39 BP 131/94 H 07/12/22 01:39 Pulse Ox 99 07/12/22 01:39 O2 Del Method 07/12/22 01:39 BMI result Body Mass Index 26.9 Const: Other: Intoxicated General: healthy appearing Nutritional Appearance: average body habitus Orientation/consciousness: oriented to person and patient oriented x3 Limitations: no limitations HEENT: Head: Yes normal to inspection Ears: external ears normal General nose exam: Normal external nose present Mouth: Normal oral and palatal mucosa present and oropharynx normal Throat: Yes posterior oropharynx normal Eyes: General: appearance normal, both eyes and all related structures Neck: Other: supple Neck: Yes normal visual inspection Chest: Chest palpation & inspection: normal inspection of the chest Resp: Auscultation: clear to auscultation bilaterally Cardio: Jugular venous distension: no JVD Rate: regular rate Rhythm: regular rhythm Heart sounds: S1 normal heart sound present and S2 normal heart sound present GI: Inspection: Yes normal to inspection Palpation (GI): Soft to palpation, nontender and No hepatosplenomegaly present Auscultation: normal bowel sounds : General: Yes no CVA tenderness Back/Spine/Pelvis: Back: no CVA tenderness Skin: Other: right upper lip abrasion Neuro: General: oriented to person and patient oriented x3 Cranial nerves: Yes CN's II-XII intact bilaterally Motor exam (neuro): 5/5 motor strength present throughout Sensory Exam: No Sensory deficit (Neuro) Extrem: General: Yes normal to inspection Psych: Appearance: grossly normal Course Reevaluation(s) Reevaluation #1: patient extremely agitated and rude Time: 22:50 Reevaluation #2: Patient with borderline personality, alcohol intoxication and polysubstance abuse. Will dc home Time: 02:05 MDM - Trauma Lab Data Result diagrams: 07/11/22 23:12 07/11/22 23:12 Labs: Lab Results 07/11/22 07/11/22 07/11/22 Range/Units 22:33 23:12 23:12 WBC 6.9 (4.8-10.8) X10*3/uL RBC 4.82 (4.20-5.50) X10*6/uL Hgb 12.9 (12.0-16.0) g/dl Hct 38.4 (37.0-47.0) % MCV 79.7 L (80.0-98.0) fL MCH 26.8 L (27.0-33.0) pg MCHC 33.6 (31.0-35.0) g/dl RDW 15.4 (11.0-16.0) % Plt Count 200 D (160-400) X10*3/uL MPV 10.1 (9.4-12.3) fL Immature Gran % (Auto) 0.1 (0.0-0.4) % Neut % (Auto) 65.0 (45-73) % Lymph % (Auto) 27.5 (20-40) % [place] % (Auto) 6.4 (2-11) % Eos % (Auto) 0.4 (0-4) % Baso % (Auto) 0.6 (0-2) % Lymph # (Auto) 1.9 (1.2-4.9) X10*3/uL [place] # (Auto) 0.4 (0.1-1.2) X10*3/uL Eos # (Auto) 0.0 (0.0-0.4) X10*3/uL Baso # (Auto) 0.0 (0.0-0.2) X10*3/uL Abs Immat Gran (auto) 0.01 (0.00-0.03) X10*3/uL Absolute Neuts (auto) 4.5 (2.0-8.3) x10*3/uL Absolute Nucleated RBC 0.000 (0.0-0.012) X10*3/uL Nucleated RBC % (auto) 0.0 (0.0-0.2) /100WBC Sodium 137 (135-145) mmol/L Potassium 3.7 (3.3-5.1) mmol/L Chloride 101 (96-108) mmol/L Carbon Dioxide 22 (22-29) mmol/L Anion Gap 18 (12-20) BUN 5 L (9-16) mg/dL Creatinine 0.67 (0.5-1.4) mg/dL Estim Creat Clear Calc 113.4 Estimated GFR > 60 POC Glucose 91 (60-115) mg/dL Random Glucose 109 (60-115) mg/dL Calcium 9.2 D (8.4-10.2) mg/dL Beta HCG, Quant < 2 mIU/mL Ethyl Alcohol mg/dL 07/11/22 Range/Units 23:12 WBC (4.8-10.8) X10*3/uL RBC (4.20-5.50) X10*6/uL Hgb (12.0-16.0) g/dl Hct (37.0-47.0) % MCV (80.0-98.0) fL MCH (27.0-33.0) pg MCHC (31.0-35.0) g/dl RDW (11.0-16.0) % Plt Count (160-400) X10*3/uL MPV (9.4-12.3) fL Immature Gran % (Auto) (0.0-0.4) % Neut % (Auto) (45-73) % Lymph % (Auto) (20-40) % [place] % (Auto) (2-11) % Eos % (Auto) (0-4) % Baso % (Auto) (0-2) % Lymph # (Auto) (1.2-4.9) X10*3/uL [place] # (Auto) (0.1-1.2) X10*3/uL Eos # (Auto) (0.0-0.4) X10*3/uL Baso # (Auto) (0.0-0.2) X10*3/uL Abs Immat Gran (auto) (0.00-0.03) X10*3/uL Absolute Neuts (auto) (2.0-8.3) x10*3/uL Absolute Nucleated RBC (0.0-0.012) X10*3/uL Nucleated RBC % (auto) (0.0-0.2) /100WBC Sodium (135-145) mmol/L Potassium (3.3-5.1) mmol/L Chloride (96-108) mmol/L Carbon Dioxide (22-29) mmol/L Anion Gap (12-20) BUN (9-16) mg/dL Creatinine (0.5-1.4) mg/dL Estim Creat Clear Calc Estimated GFR POC Glucose (60-115) mg/dL Random Glucose (60-115) mg/dL Calcium (8.4-10.2) mg/dL Beta HCG, Quant mIU/mL Ethyl Alcohol 225 mg/dL Imaging Data CT scan - head: Radiologist's impression: IMPRESSION: 1. No acute intracranial hemorrhage or edematous territorial infarction. 2. No evidence of acute fracture or traumatic subluxation of the cervical spine. Discharge Plan Discharge Clinical Impression: Alcohol use disorder, Polysubstance abuse Patient Disposition: Home, Self-Care Instructions: Acute Delirium (ED), Polysubstance Abuse (ED) Prescriptions: No Action No Known Home Meds Referrals: Mike Franks MD [Primary Care Provider] - 1 week
[2022-07-11 22:37] LABS: Glucose, Whole Blood 91 mg/dL (60-115)
[2022-07-11 23:19] LABS: MANUAL DIFF FLAG NO
[2022-07-11 23:28] LABS: Basophils Percent Auto 0.6 % (0-2); Eosinophils Percent Auto 0.4 % (0-4); Hematocrit 38.4 % (37.0-47.0); Hemoglobin 12.9 g/dl (12.0-16.0); Imm Gran Abs Auto 0.01 X10*3/uL (0.00-0.03); Imm Gran Pct Auto 0.1 % (0.0-0.4); Lymphocytes Absolute Auto 1.9 X10*3/uL (1.2-4.9); Lymphocytes Percent Auto 27.5 % (20-40); Mean Corpuscular HGB Conc 33.6 g/dl (31.0-35.0); Mean Corpuscular Hemoglobin 26.8 pg (27.0-33.0); Mean Corpuscular Volume 79.7 fL (80.0-98.0); Mean Platelet Volume 10.1 fL (9.4-12.3); Monocytes Absolute Auto 0.4 X10*3/uL (0.1-1.2); Monocytes Percent Auto 6.4 % (2-11); Neutrophils Absolute Auto 4.5 x10*3/uL (2.0-8.3); Platelet Count 200 X10*3/uL (160-400); Red Blood Count 4.82 X10*6/uL (4.20-5.50); Red Cell Distribution Width 15.4 % (11.0-16.0); White Blood Count 6.9 X10*3/uL (4.8-10.8)
[2022-07-11 23:49] LABS: Anion Gap 18 (12-20); Blood Urea Nitrogen 5 mg/dL (9-16); Calcium 9.2 mg/dL (8.4-10.2); Carbon Dioxide 22 mmol/L (22-29); Chloride 101 mmol/L (96-108); Creatinine Clr Calc Pharmacy 113.4; Estimated Glomerular Filt Rate > 60; Ethanol 225 mg/dL; Glucose Random 109 mg/dL (60-115); Potassium 3.7 mmol/L (3.3-5.1); Sodium 137 mmol/L (135-145)
[2022-07-12] VITALS: BP 124/90; PULSE 100; O2SAT 99
[2022-07-12] MEDS: ondansetron HCL 4 MG/2 ML VIAL IVPUSH (00:08)
[2022-07-12 00:32] LABS: HCG Quantitative < 2 mIU/mL
[2022-07-12 01:39] VITALS: BP 131/94; PULSE 97; RESP 14; O2SAT 99
[2022-07-12 02:00] VITALS: BP 131/94; PULSE 86; RESP 12; O2SAT 98
== END 2022-07-12 03:18 | disposition home or self-care (01) ==
PROVIDERS: Emergency Provider Emergency Medicine; PCP Internal Medicine
DX: F10.19 Alcohol abuse with unspecified alcohol-induced disorder (principal); Y90.7 Blood alcohol level of 200-239 mg/100 ml; F19.10 Other psychoactive substance abuse, uncomplicated; F60.3 Borderline personality disorder; R45.1 Restlessness and agitation
CPT/HCPCS: 36415; 70450; 72125; 80048; 82077; 82947; 84702; 85025; 96374; 99283; 99284; J2405

== ENCOUNTER 2022-11-10 21:54 | Emergency (ER) | payer OTHER, SELFPAY ==
[2022-11-10 22:25] VITALS: BP 144/84; PULSE 130; RESP 25; TEMP 36.8; BMI 25.7
[2022-11-10 22:34] VITALS: BP 144/84; PULSE 130; TEMP 37.4
--- NOTE | 2022-11-10 22:45 | PC.NURSE ---
Addendum entered by Joanne Bowman 11/10/22 22:50: Pt report snot being to sleep for 48 hours, pt reported she was hospitalized at [facility]. Original Note: Pt's a/o x4, pt reports, I am seeing people talking to me from aside and behind. Pt reports drinking whisky first thing in the morning. Pt is in tear at the time of the assessment. Pt was combative at the time of arrival, but calm down with this nurse. Pt is on the monitor d/t she is tachy. Pt's pupils are dilated. Pt denies utilizing drugs. Pt denies being SI or HI.
[2022-11-10] MEDS: LORazepam 1 MG TABLET 2 MG PO (23:47)
--- NOTE | 2022-11-10 23:52 | ED.GENADULT ---
HPI - General Adult General Chief complaint: Altered Mental Status Stated complaint: CRISIS, WITHDRAWALS Time Seen by Provider: 11/10/22 22:06 Source: patient and EMS Mode of arrival: EMS Limitations: other (Patient extremely intoxicated) History of Present Illness HPI narrative: This is a 31-year-old female history of PTSD, generalized anxiety disorder, major depression, polysubstance abuse, alcohol use disorder presenting with acute alcohol intoxication, patient tells me that she relapsed on alcohol. She tells me that yesterday she was discharged from rehab at [facility]. She tells me she has been drinking all day however unable to tell me how much. Patient arrives in tells me she wants to leave and go to [facility] and she tells me she hates that here because they are too many male employees. Patient tells me that she sick of being alive and does not want to live anymore. She does not have a particular plan. Denies homicidal ideation. Denies tobacco, other drugs. No medical complaints at this time. Ambulating with steady gait with normal coordination around the department. When I ask her review of systems she tells me that is enough questions and she does not want answer any more questions. No reported trauma Related Data Home Medications Medication Instructions Recorded Confirmed No Known Home Meds 12/20/21 12/20/21 Allergies Allergy/AdvReac Type Severity Reaction Status Date / Time No Known Allergies Allergy Verified 07/03/22 22:59 [No Known Allergies*] Review of Systems Review of Systems: Patient not contributing to review of systems, very intoxicated Yes Other PMFSH Past Medical History Attestation statement: The following information was validated with the patient. Source: old records reviewed and nursing notes reviewed Medical History Alcohol abuse with withdrawal delirium Alcohol use disorder Alcohol withdrawal delirium Alcohol withdrawal seizure Alcoholism Anxiety Bulimia Chronic post-traumatic stress disorder (PTSD) Depression SANDY (generalized anxiety disorder) MDD (major depressive disorder), recurrent episode, moderate MDD (major depressive disorder), recurrent episode, severe Panic attack Family History Family History Brother Substance abuse Social History Social History Household Members: Family Housing: Apartment Do you presently have visiting nurse or other home services: No Alcohol intake: current Alcohol intake frequency: former alcohol drinker Alcohol type: hard liquor Patient Tobacco Use Status: Never used Tobacco e-Cigarette/Vaping Use: Never Used Second Hand Smoke Exposure: No Use of substances other than those prescribed or required for medical reasons: Yes Substance Use Type: Marijuana Advance Directives: No Advance Directives Information Provided: Yes Patient : No service: No Current occupational status: unemployed Sexual orientation: Straight/Heterosexual Physical Exam ED Vital Signs: Vital Signs - 24 hr 11/10/22 22:25 11/10/22 22:34 Temperature 98.2 F 99.3 F Pulse Rate 130 H 130 H Respiratory Rate 25 H Blood Pressure 144/84 H 144/84 H BMI result Body Mass Index 25.7 vss Appearance: Alert.? Oriented X3.? No acute distress.? Patient smells like alcohol Head: Normocephalic, atraumatic, no step-offs or deformities Eyes: Pupils equal, round and reactive to light.? ENT: Pharynx normal.? Neck: Normal inspection.? Neck supple.? CVS: Normal heart rate and rhythm.? Pulses normal.? Respiratory: No respiratory distress.? Breath sounds normal.? Abdomen: Soft and nontender.? Skin: Skin warm and dry.? Normal skin color.? Normal skin turgor.? Extremities: No lower extremity edema.? No calf ttp. 5/5 strength to bilateral upper and lower extremities Back: No midline tenderness, no C-spine tenderness, full range of motion, no CVA tenderness bilaterally Neuro: Oriented X 3.? No motor deficit.? No sensory deficit. CN 2-12 intact ambulating with steady gait normal coordination. Course Reevaluation(s) Reevaluation #1: CBC appears to be within normal limits. UA without infection. negative. Toxicology positive for barbiturates. Chemistry and ethanol level pending. Time: 00:20 Reevaluation #2: Chemistry with no acute findings requiring intervention. Salicylates, acetaminophen negative. Patient's ethanol level 310 although nursing or documented to see well of 25 I do not agree with this score. Patient likely tachycardic secondary to anxiety and pacing around the department with agitation. Will repeat vital signs now that patient is sleeping. It does not make sense that patient is in acute alcohol withdrawal without ethanol level of 310. Time: 00:29 Reevaluation #3: It was reported to me by nursing that patient fell to the ground reports she hit her head, no loss of consciousness. Fall was unwitnessed. Will obtain CT of head and neck. Patient's neuro exam remains nonfocal. Ambulatory with steady gait. Time: 00:44 Medications Administered Discontinued Medications Generic Name Dose Route Start Last Admin Trade Name Mary PRN Reason Stop Dose Admin Lorazepam 2 mg 11/10/22 23:21 11/10/22 23:47 Lorazepam 1 Mg Tablet PO 11/10/22 23:22 2 mg ONCE ONE Administration Medical Decision Making Medical Decision Making [facility] Narrative: [id number] 31-year-old female presents to the emergency department with acute alcohol intoxication tells me she was just discharged from detox yesterday. Vague SI complaints however she is intoxicated. Physical exam patient is significantly intoxicated. Ambulating with steady gait. Patient not cooperative. Plan- medical clearance Lab Data Result Diagrams: 11/11/22 00:02 11/11/22 00:02 Labs: Lab Results 11/11/22 11/11/22 11/11/22 Range/Units 00:02 00:02 00:02 WBC 7.2 (4.8-10.8) X10*3/uL RBC 5.25 (4.20-5.50) X10*6/uL Hgb 13.8 (12.0-16.0) g/dl Hct 41.8 (37.0-47.0) % MCV 79.6 L (80.0-98.0) fL MCH 26.3 L (27.0-33.0) pg MCHC 33.0 (31.0-35.0) g/dl RDW 15.8 (11.0-16.0) % Plt Count 207 (160-400) X10*3/uL MPV 10.0 (9.4-12.3) fL Immature Gran % (Auto) 0.3 (0.0-0.4) % Neut % (Auto) 64.7 (45-73) % Lymph % (Auto) 27.7 (20-40) % Parker % (Auto) 6.8 (2-11) % Eos % (Auto) 0.1 (0-4) % Baso % (Auto) 0.4 (0-2) % Lymph # (Auto) 2.0 (1.2-4.9) X10*3/uL Parker # (Auto) 0.5 (0.1-1.2) X10*3/uL Eos # (Auto) 0.0 (0.0-0.4) X10*3/uL Baso # (Auto) 0.0 (0.0-0.2) X10*3/uL Abs Immat Gran (auto) 0.02 (0.00-0.03) X10*3/uL Absolute Neuts (auto) 4.7 (2.0-8.3) x10*3/uL Absolute Nucleated RBC 0.000 (0.0-0.012) X10*3/uL Nucleated RBC % (auto) 0.0 (0.0-0.2) /100WBC Sodium 140 (135-145) mmol/L Potassium 3.9 (3.3-5.1) mmol/L Chloride 107 (96-108) mmol/L Carbon Dioxide 20 L (22-29) mmol/L Anion Gap 17 (12-20) BUN 6 L (9-16) mg/dL Creatinine 0.81 (0.5-1.4) mg/dL Estim Creat Clear Calc 91.7 Estimated GFR > 60 Random Glucose 107 (60-115) mg/dL Calcium 9.4 (8.4-10.2) mg/dL Magnesium 2.1 (1.6-2.6) mg/dL Total Bilirubin 0.3 (0.0-1.0) mg/dL AST 33 H (5-31) U/L ALT 23 (0-31) U/L Alkaline Phosphatase 83 D (39-117) U/L Total Protein 8.8 H (6.5-8.0) g/dL Albumin 5.1 H D (3.5-5.0) g/dL Urine Color Urine Appearance Urine pH (5.0-9.0) Ur Specific [place] (1.005-1.025) Urine Protein (Neg-Trace) mg/dL Urine Glucose (UA) (Negative) mg/dL Urine Ketones (Negative) mg/dL Urine Blood (Negative) Urine Nitrite (Negative) Ur Leukocyte Esterase (Negative) Urine Test NEGATIVE (NEGATIVE) Salicylates < 5.0 L (15-30) mg/dL Urine Opiates Screen (Not Detect) Urine Fentanyl Screen (Not Detect) Acetaminophen < 1 (<30) mcg/mL Ur Barbiturates Screen (Not Detect) Ur Phencyclidine Scrn (Not Detect) Ur Amphetamines Screen (Not Detect) U Benzodiazepines Scrn (Not Detect) Urine Cocaine Screen (Not Detect) U Marijuana (THC) Screen (Not Detect) Ethyl Alcohol 310 H* mg/dL COVID-19 ([facility]) (Negative) COVID-19 Clin Com 11/11/22 11/11/22 11/11/22 Range/Units 00:02 00:02 00:15 WBC (4.8-10.8) X10*3/uL RBC (4.20-5.50) X10*6/uL Hgb (12.0-16.0) g/dl Hct (37.0-47.0) % MCV (80.0-98.0) fL MCH (27.0-33.0) pg MCHC (31.0-35.0) g/dl RDW (11.0-16.0) % Plt Count (160-400) X10*3/uL MPV (9.4-12.3) fL Immature Gran % (Auto) (0.0-0.4) % Neut % (Auto) (45-73) % Lymph % (Auto) (20-40) % Parker % (Auto) (2-11) % Eos % (Auto) (0-4) % Baso % (Auto) (0-2) % Lymph # (Auto) (1.2-4.9) X10*3/uL Parker # (Auto) (0.1-1.2) X10*3/uL Eos # (Auto) (0.0-0.4) X10*3/uL Baso # (Auto) (0.0-0.2) X10*3/uL Abs Immat Gran (auto) (0.00-0.03) X10*3/uL Absolute Neuts (auto) (2.0-8.3) x10*3/uL Absolute Nucleated RBC (0.0-0.012) X10*3/uL Nucleated RBC % (auto) (0.0-0.2) /100WBC Sodium (135-145) mmol/L Potassium (3.3-5.1) mmol/L Chloride (96-108) mmol/L Carbon Dioxide (22-29) mmol/L Anion Gap (12-20) BUN (9-16) mg/dL Creatinine (0.5-1.4) mg/dL Estim Creat Clear Calc Estimated GFR Random Glucose (60-115) mg/dL Calcium (8.4-10.2) mg/dL Magnesium (1.6-2.6) mg/dL Total Bilirubin (0.0-1.0) mg/dL AST (5-31) U/L ALT (0-31) U/L Alkaline Phosphatase (39-117) U/L Total Protein (6.5-8.0) g/dL Albumin (3.5-5.0) g/dL Urine Color Yellow Urine Appearance Clear Urine pH 5.5 (5.0-9.0) Ur Specific [place] <= 1.005 (1.005-1.025) Urine Protein Negative (Neg-Trace) mg/dL Urine Glucose (UA) Negative (Negative) mg/dL Urine Ketones Negative (Negative) mg/dL Urine Blood Negative (Negative) Urine Nitrite Negative (Negative) Ur Leukocyte Esterase Negative (Negative) Urine Test (NEGATIVE) Salicylates (15-30) mg/dL Urine Opiates Screen Not Detected (Not Detect) Urine Fentanyl Screen Not Detected (Not Detect) Acetaminophen (<30) mcg/mL Ur Barbiturates Screen POSITIVE H (Not Detect) Ur Phencyclidine Scrn Not Detected (Not Detect) Ur Amphetamines Screen Not Detected (Not Detect) U Benzodiazepines Scrn Not Detected (Not Detect) Urine Cocaine Screen Not Detected (Not Detect) U Marijuana (THC) Screen Not Detected (Not Detect) Ethyl Alcohol mg/dL COVID-19 ([facility]) Negative (Negative) COVID-19 Clin Com See Note Discharge Plan Discharge Clinical Impression: Acute alcohol intoxication Patient Disposition: Still a Patient Prescriptions: No Action No Known Home Meds
[2022-11-11 00:08] LABS: Basophils Percent Auto 0.4 % (0-2); Eosinophils Percent Auto 0.1 % (0-4); Hematocrit 41.8 % (37.0-47.0); Hemoglobin 13.8 g/dl (12.0-16.0); Imm Gran Abs Auto 0.02 X10*3/uL (0.00-0.03); Imm Gran Pct Auto 0.3 % (0.0-0.4); Lymphocytes Percent Auto 27.7 % (20-40); MANUAL DIFF FLAG NO; Mean Corpuscular Hemoglobin 26.3 pg (27.0-33.0); Mean Corpuscular Volume 79.6 fL (80.0-98.0); Monocytes Absolute Auto 0.5 X10*3/uL (0.1-1.2); Monocytes Percent Auto 6.8 % (2-11); Neutrophils Absolute Auto 4.7 x10*3/uL (2.0-8.3); Neutrophils Percent Auto 64.7 % (45-73); Platelet Count 207 X10*3/uL (160-400); Red Blood Count 5.25 X10*6/uL (4.20-5.50); Red Cell Distribution Width 15.8 % (11.0-16.0); White Blood Count 7.2 X10*3/uL (4.8-10.8)
[2022-11-11 00:10] LABS: Appearance Urine Clear; Color Urine Yellow; Glucose Urine UA Negative (Negative); Leukocyte Esterase Urine Negative (Negative); Nitrite Urine Negative (Negative); PH 5.5 (5.0-9.0); Specific Gravity - Urine <= 1.005 (1.005-1.025); Urine Blood Negative (Negative); Urine Ketones Negative (Negative); Urine Protein Negative (Neg-Trace)
[2022-11-11 00:11] LABS: UPreg QC Valid YES; Urine Pregnancy NEGATIVE (NEGATIVE)
[2022-11-11 00:18] LABS: Amphetamine Screen Urine Not Detected (Not Detect); Barbiturates, Urine POSITIVE (Not Detect); Benzodiazepines Screen Urine Not Detected (Not Detect); Cannabinoid Screen Urine Not Detected (Not Detect); Cocaine Screen Urine Not Detected (Not Detect); Fentanyl, urine Not Detected (Not Detect); Opiate Screen Urine Not Detected (Not Detect); Phencyclidine Screen Urine Not Detected (Not Detect)
[2022-11-11 00:27] LABS: Acetaminophen LAB < 1 mcg/mL (<30); Alanine Aminotransferase 23 U/L (0-31); Albumin Level 5.1 g/dL (3.5-5.0); Alkaline Phosphatase 83 U/L (39-117); Anion Gap 17 (12-20); Aspartate Amino Transferase 33 U/L (5-31); Blood Urea Nitrogen 6 mg/dL (9-16); Calcium 9.4 mg/dL (8.4-10.2); Carbon Dioxide 20 mmol/L (22-29); Chloride 107 mmol/L (96-108); Creatinine Clr Calc Pharmacy 91.7; Estimated Glomerular Filt Rate > 60; Glucose Random 107 mg/dL (60-115); Magnesium 2.1 mg/dL (1.6-2.6); Potassium 3.9 mmol/L (3.3-5.1); Salicylate < 5.0 mg/dL (15-30); Sodium 140 mmol/L (135-145); Total Protein 8.8 g/dL (6.5-8.0)
[2022-11-11 00:36] LABS: Bilirubin Total 0.3 mg/dL (0.0-1.0)
[2022-11-11 00:37] LABS: COVID-19 Test Negative (Negative)
--- NOTE | 2022-11-11 01:05 | PC.NURSE ---
PCT Joseph found pt on floor, this RN came over and assisted Joseph in helping pt back to bed. Pt reports she hit her head when she fell although is confused about the situation. This RN alert NANY Marquez to situation. Attempted to find primary nurse Joanne however, unsuccessful, charge nurse aware of incident
--- NOTE | 2022-11-11 01:30 | MHC.CARE ---
Pt was sent here per the request of [facility] co-response Clinician with HPD. Per clinician, pt is not in a crisis she is highly intoxicated and sent here for med clearance. Once pt is clinically sober pt will be seen by CARE Team or Recovery Team if necessary.
[2022-11-11 02:51] VITALS: RESP 17
[2022-11-11 04:26] LABS: Ethanol 310 mg/dL
--- NOTE | 2022-11-11 06:52 | PC.NURSE ---
Pt has experienced a fall while sleeping. pt reports, she was having a nightmare and she jump out of the bed.Joseph Dong, he was observing her d/t pt arrived being aggressive. Pt was a/o x5 with this nurse, she was comparative and allowed the nurse to medicated her and complete the lab work. After the fact, this nurse changed pt bed into a bed alarm. For further information, please see the incident report. pt will monitor closely.
[2022-11-11 08:13] VITALS: RESP 16
--- NOTE | 2022-11-11 09:32 | MHC.RECOVRN ---
Met with pt in ED13 to discuss alcohol use and desire for treatment. Upon entering, pt sleeping in bed, wakes to voice. Pt does not report withdrawal symptoms nor does she appear to be experiencing withdrawal. Pt reluctant to engage in conversation. Reports coming to the hospital to be checked out after starting a new medication (unable to recall the name) and seeing someone behind me. Pt reports PCP adjusted medications for depression, pt states I'm just going to go back to what I was doing. Pt denies AH/VH at this time. Pt reports recent hospitalization at [facility] and had completed the detoxification process there. Pt states This was a slip. I'm just going to go back to not drinking. Pt reports hx trialing ELA[facility], reports they were not helpful. Pt is beginning to engage in therapy and states This is the only thing I haven't tried. Pt hopeful therapy will be helpful. Pt declines recovery resources and supports at this time. Denies other questions or concerns. Discussed with CARE Team, pt does not need crisis evaluation. Provider and RN aware.
== END 2022-11-11 10:14 | disposition home or self-care (01) ==
PROVIDERS: Physician Assistant; Emergency Provider Internal Medicine; PCP Internal Medicine
DX: F10.220 Alcohol dependence with intoxication, uncomplicated (principal); Y90.8 Blood alcohol level of 240 mg/100 ml or more; F43.10 Post-traumatic stress disorder, unspecified; F41.1 Generalized anxiety disorder; F32.9 Major depressive disorder, single episode, unspecified; F19.10 Other psychoactive substance abuse, uncomplicated; F12.90 Cannabis use, unspecified, uncomplicated; Z20.822 Contact with and (suspected) exposure to COVID-19
CPT/HCPCS: 36415; 70450; 72125; 80053; 80143; 80179; 80307; 81003; 81025; 82077; 83735; 85025; 87635; 99284

== ENCOUNTER 2022-12-28 16:06 | Outpatient (REF) | payer OTHER, SELFPAY ==
[2022-12-28 17:12] LABS: Alanine Aminotransferase 12 U/L (0-31); Albumin Level 4.4 g/dL (3.5-5.0); Alkaline Phosphatase 64 U/L (39-117); Anion Gap 15 (12-20); Aspartate Amino Transferase 22 U/L (5-31); Bilirubin Total 0.3 mg/dL (0.0-1.0); Blood Urea Nitrogen 16 mg/dL (9-16); Calcium 9.5 mg/dL (8.4-10.2); Carbon Dioxide 25 mmol/L (22-29); Chloride 105 mmol/L (96-108); Estimated Glomerular Filt Rate > 60; Glucose Random 81 mg/dL (60-115); Magnesium 1.7 mg/dL (1.6-2.6); Potassium 4.3 mmol/L (3.3-5.1); Sodium 141 mmol/L (135-145); Total Protein 7.4 g/dL (6.5-8.0)
== END 2022-12-28 16:07 | disposition home or self-care (01) ==
LOC: HO.LAB 16:06
PROVIDERS: PCP Internal Medicine; Visit Provider Internal Medicine
DX: K21.9 Gastro-esophageal reflux disease without esophagitis (principal); E83.42 Hypomagnesemia
CPT/HCPCS: 36415; 80053; 83735

== ENCOUNTER 2023-01-18 01:25 | Emergency (ER) | payer OTHER, SELFPAY ==
--- NOTE | ~2023-01-18 | CT_ITS ---
EXAMINATION: CT head/brain wo IV con, CT cervical spine wo IV con INDICATION INFORMATION: Reason for Exam fall head strike COMPARISON: CT head and cervical spine 11/11/2022 TECHNIQUE: Separate noncontrast CT examinations of the head and cervical spine were performed. Coronal and sagittal images were created for each examination at the technologist workstation. This CT examination was performed using dose optimization techniques as appropriate, variously including the following: *Automated exposure control *Adjustment of mA and/or kV according to patient size (this includes techniques or standardized protocols for targeted exams where dose is matched to indication/reason for exam; i.e. extremities or head) *Use of iterative reconstruction technique DLP: 1031 mGy-cm FINDINGS: Head: No acute osseous or soft tissue abnormality. Scattered ethmoid sinus mucosal thickening. The mastoids are clear. There is no evidence of acute intracranial hemorrhage or territorial infarction. No abnormal mass effect or midline shift is seen. Ugarte to white matter differentiation is well preserved. No extra-axial fluid collections are identified. No hydrocephalus. No significant volume loss. There is no abnormal attenuation within the brain parenchyma. Cervical spine: There is no evidence of acute cervical spine fracture. Vertebral bodies remain normal in height. Alignment is maintained. Disc space heights are maintained. No pre- or paravertebral soft tissue abnormality is identified. Visualized portions of the lung apices are unremarkable. The thyroid gland is unremarkable. CT/CT head/brain wo IV con IMPRESSION: 1. No acute intracranial abnormality. 2. No cervical spine fracture or traumatic malalignment.
--- NOTE | ~2023-01-18 | CT_ITS ---
EXAMINATION: CT head/brain wo IV con, CT cervical spine wo IV con INDICATION INFORMATION: Reason for Exam fall head strike COMPARISON: CT head and cervical spine 11/11/2022 TECHNIQUE: Separate noncontrast CT examinations of the head and cervical spine were performed. Coronal and sagittal images were created for each examination at the technologist workstation. This CT examination was performed using dose optimization techniques as appropriate, variously including the following: *Automated exposure control *Adjustment of mA and/or kV according to patient size (this includes techniques or standardized protocols for targeted exams where dose is matched to indication/reason for exam; i.e. extremities or head) *Use of iterative reconstruction technique DLP: 1031 mGy-cm FINDINGS: Head: No acute osseous or soft tissue abnormality. Scattered ethmoid sinus mucosal thickening. The mastoids are clear. There is no evidence of acute intracranial hemorrhage or territorial infarction. No abnormal mass effect or midline shift is seen. Ugarte to white matter differentiation is well preserved. No extra-axial fluid collections are identified. No hydrocephalus. No significant volume loss. There is no abnormal attenuation within the brain parenchyma. Cervical spine: There is no evidence of acute cervical spine fracture. Vertebral bodies remain normal in height. Alignment is maintained. Disc space heights are maintained. No pre- or paravertebral soft tissue abnormality is identified. Visualized portions of the lung apices are unremarkable. The thyroid gland is unremarkable. CT/CT cervical spine wo IV con IMPRESSION: 1. No acute intracranial abnormality. 2. No cervical spine fracture or traumatic malalignment.
--- NOTE | 2023-01-18 01:23 | ED_ITS ---
HPI - Alcohol General Stated Complaint: etoh Source: patient and EMS Mode of arrival: EMS Limitations: no limitations History of Present Illness HPI narrative: 32-year-old female presents not cooperative, after drinking alcohol just prior to arrival. Patient has a history of alcohol use disorder, PTSD, generalized anxiety disorder. Arrives to the department and is refusing everything, states she would like to go to [facility]. Denies SI and HI. Denies medical complaints tells me she is just drunk. Refusing my examination, vital signs, security at the bedside patient uncooperative. Related Data Home Medications Medication Instructions Recorded Confirmed No Known Home Meds 12/20/21 12/20/21 Allergies Allergy/AdvReac Type Severity Reaction Status Date / Time No Known Allergies Allergy Verified 07/03/22 22:59 [No Known Allergies*] Review of Systems Review of Systems: Constitutional : No Weight loss, No Fever, No Chills, No Fatigue, No Malaise ENT/Mouth : No sore throat, No Rhinorrhea Eyes: No Eye Pain, No Swelling, No Redness Cardiovascular : No Chest Pain, No SOB, No Dyspnea on Exertion, No Orthopnea, No Edema, No Palpitations Respiratory : No Cough, No Sputum, No Wheezing Gastrointestinal : No Nausea, No Vomiting, No Diarrhea, No Constipation, No abdominal Pain, No Hematochezia, No Melena Genitourinary : No Dysuria, No Urinary Frequency, No Hematuria, Musculoskeletal : No joint pain, No Myalgias, No Joint Swelling Skin : No Skin Lesions, No rash Neuro : No Weakness, No Numbness, No Dizziness, No Headache Psych : No Anxiety/Panic, No Depression All other systems reviewed and are negative Yes all other systems are reviewed and are negative [facility] Past Medical History Attestation statement: The following information was validated with the patient. Source: old records reviewed and nursing notes reviewed Medical History Alcohol abuse with withdrawal delirium Alcohol use disorder Alcohol withdrawal delirium Alcohol withdrawal seizure Alcoholism Anxiety Bulimia Chronic post-traumatic stress disorder (PTSD) Depression SANDY (generalized anxiety disorder) MDD (major depressive disorder), recurrent episode, moderate MDD (major depressive disorder), recurrent episode, severe Panic attack Family History Family History Brother Substance abuse Social History Social History Household Members: Family Housing: Apartment Do you presently have visiting nurse or other home services: No Alcohol intake: current Alcohol intake frequency: former alcohol drinker Alcohol type: hard liquor Patient Tobacco Use Status: Never used Tobacco e-Cigarette/Vaping Use: Never Used Second Hand Smoke Exposure: No Substance Use Type: Marijuana service: No Current occupational status: unemployed Sexual orientation: Straight/Heterosexual Physical Exam ED Vital Signs: Pulse rate of 80 upon auscultation. Respiratory rate of 14. Appearance: Alert.? Oriented X3.? No acute distress.? Patient smells like alcohol. Head: Normocephalic, atraumatic, no step-offs or deformities Eyes: Pupils equal, round and reactive to light.? CVS: Normal heart rate and rhythm.? Pulses normal.? Respiratory: No respiratory distress.? Breath sounds normal.? Abdomen: Soft and nontender.? Skin: Skin warm and dry.? Normal skin color.? Normal skin turgor.? Extremities: No lower extremity edema.? No calf ttp. 5/5 strength to bilateral upper and lower extremities Neuro: Oriented X 3.? No motor deficit.? No sensory deficit. CN 2-12 intact . Normal [id number], [id number]. Steady tandem gait normal coordination. Course Reevaluation(s) Reevaluation #1: Patient common cooperative at this time, vital stable. Allowing exam. Neuro remains nonfocal. This is likely alcohol intoxication. Patient leaving, refusing further intervention and treatment here. Patient with sober ride her mother. Educated patient on diagnosis and treatment plan, answered all question, patient verbalizes understanding. At this time patient will be discharged home, advised to return with new or worsening symptoms. Educated on worrisome signs and symptoms and when to return. At this time I feel comfortable discharge home. Time: 01:29 Medical Decision Making Medical Decision Making MDM Narrative: 32-year-old female presents with acute alcohol intoxication, uncooperative, refusing everything. Denies SI and HI. Requesting to go to [facility]. Multiple nurses and myself try to speak to patient and have her stay here, patient adamantly refusing denies SI and HI. I explained her that she would need a sober ride to [facility]. She tells me her mom will come. Nursing staff spoke to her parents, mom is willing to come pick patient up. Physical examination benign. Patient allowed a physical exam and I explained to her her mom coming get her. Likely alcohol intoxication. There is no trauma no fall unlikely intracranial hemorrhage, stroke, posterior stroke, neuro nonfocal. No signs of traumatic injury to chest, abdomen and pelvis. Denies suicidal and homicidal ideation. Denies other drug use. Plan at this time to obtain labs in get her evaluated by job coaching however patient refusing therefore her mother will pick her up. Differential Diagnosis Differential Diagnoses: The differential diagnosis associated with the presentation includes Likely alcohol intoxication. There is no trauma no fall unlikely intracranial hemorrhage, stroke, posterior stroke, neuro nonfocal. No signs of traumatic injury to chest, abdomen and pelvis. Denies suicidal and homicidal ideation. Denies other drug use. Admission/Observation Consideration of admission/observation: Escalation of care including admission/observation considered Unlikely Core Measures AMI core measures followed: Yes Measure exclusions: not indicated Critical Care Time Critical Care Time Critical Care Time: No Discharge Plan Discharge Clinical Impression: Alcohol use disorder, Acute alcohol intoxication Patient Disposition: Home, Self-Care Additional Instructions: Take your medications as prescribed. If you were prescribed antibiotics today, it is important that you take your medication to their entirety, do not skip any doses, do not finish them early. Follow-up with your primary care provider this week. Return to the emergency department with new or worsening symptoms. Such as fevers, chills, chest pain, shortness of breath, nausea, vomiting, dizziness, headache, vision changes, lethargy In case of emergency call 911 Prescriptions: No Action No Known Home Meds Referrals: ED Physician,Generic [Emergency Provider] - 2 days
[2023-01-18 01:24] VITALS: BP 146/82; PULSE 115; O2SAT 98
[2023-01-18 01:26] VITALS: BP 146/82; PULSE 115; RESP 16; O2SAT 98; BMI 26.5
--- NOTE | 2023-01-18 01:52 | PC.NURSE ---
Pt arrived via EMS reporting not wanting to be treated here and wanting to go to [facility]. Pt appears to be intoxicated with slurred speech and unsteady gait. Alcohol smell present. Pt offered medical treatment by multiple nursing staff and pt continues to refuse treatment. Pt agrees to have mom pick her up and bring her to [facility]. Pts mom arrived in waiting room. Pt wheeled out in a wheelchair and left without being seen.
== END 2023-01-18 02:12 | disposition home or self-care (01) ==
PROVIDERS: Emergency Provider Internal Medicine
DX: F10.120 Alcohol abuse with intoxication, uncomplicated (principal); Y90.9 Presence of alcohol in blood, level not specified; Z91.81 History of falling; Z91.199 Patient's noncompliance with other medical treatment and regimen due to unspecified reason; F19.10 Other psychoactive substance abuse, uncomplicated; F33.2 Major depressive disorder, recurrent severe without psychotic features; F41.1 Generalized anxiety disorder; F41.0 Panic disorder [episodic paroxysmal anxiety]; F43.12 Post-traumatic stress disorder, chronic
CPT/HCPCS: 70450; 72125; 99283; 99284

== ENCOUNTER 2023-03-28 18:05 | Emergency (ER) | payer OTHER, SELFPAY ==
--- NOTE | 2023-03-28 18:23 | ED_ITS ---
HPI - General Adult General Chief complaint: Seizure Stated complaint: Seizures? Crisis Related Data Home Medications Medication Instructions Recorded Confirmed No Known Home Meds 12/20/21 12/20/21 Allergies Allergy/AdvReac Type Severity Reaction Status Date / Time No Known Allergies Allergy Verified 07/03/22 22:59 [No Known Allergies*] [facility] Past Medical History Medical History Alcohol abuse with withdrawal delirium Alcohol use disorder Alcohol withdrawal delirium Alcohol withdrawal seizure Alcoholism Anxiety Bulimia Chronic post-traumatic stress disorder (PTSD) Depression SANDY (generalized anxiety disorder) MDD (major depressive disorder), recurrent episode, moderate MDD (major depressive disorder), recurrent episode, severe Panic attack Family History Family History Brother Substance abuse Social History Social History Household Members: Family Housing: Apartment Do you presently have visiting nurse or other home services: No Alcohol intake: current Alcohol intake frequency: former alcohol drinker Alcohol type: hard liquor Patient Tobacco Use Status: Never used Tobacco e-Cigarette/Vaping Use: Never Used Second Hand Smoke Exposure: No Substance Use Type: Marijuana Advance Directives: No Advance Directives Information Provided: No service: No Current occupational status: unemployed Sexual orientation: Straight/Heterosexual Physical Exam ED Vital Signs: BMI result Body Mass Index 25.7 Course Course Course Narrative: RME: 32yo F w/PMHx anxiety, PTSD, depression, EtOH abuse with withdrawal seizures presenting to the ED via EMS complaining of seizure last night. Patient did not take anti epileptics last night, reports seizure with fall and head injury. Reports seizures or happening daily. Patient intoxicated, last drink 4 hours ago. Denies SI/HI + EtOH odor on breath, intoxicated EKG, labs, drug screen, ethanol, head CT ordered Full HPI, ROS and PE to be performed by primary ED provider. Medical Decision Making Lab Data 03/28/23 18:56 03/28/23 18:56 Labs: Lab Results 03/28/23 03/28/23 03/28/23 Range/Units 18:38 18:38 18:56 WBC 6.8 (4.8-10.8) X10*3/uL RBC 5.13 (4.20-5.50) X10*6/uL Hgb 13.4 (12.0-16.0) g/dl Hct 41.1 (37.0-47.0) % MCV 80.1 (80.0-98.0) fL MCH 26.1 L (27.0-33.0) pg MCHC 32.6 (31.0-35.0) g/dl RDW 14.6 (11.0-16.0) % Plt Count 264 D (160-400) X10*3/uL MPV 9.8 (9.4-12.3) fL Immature Gran % (Auto) 0.1 (0.0-0.4) % Neut % (Auto) 72.6 (45-73) % Lymph % (Auto) 22.6 (20-40) % [place] % (Auto) 4.1 (2-11) % Eos % (Auto) 0.0 (0-4) % Baso % (Auto) 0.6 (0-2) % Lymph # (Auto) 1.5 (1.2-4.9) X10*3/uL [place] # (Auto) 0.3 (0.1-1.2) X10*3/uL Eos # (Auto) 0.0 (0.0-0.4) X10*3/uL Baso # (Auto) 0.0 (0.0-0.2) X10*3/uL Abs Immat Gran (auto) 0.01 (0.00-0.03) X10*3/uL Absolute Neuts (auto) 4.9 (2.0-8.3) x10*3/uL Absolute Nucleated RBC 0.000 (0.0-0.012) X10*3/uL Nucleated RBC % (auto) 0.0 (0.0-0.2) /100WBC PT (10.0-13.1) SEC INR (0.9-1.1) Sodium (135-145) mmol/L Potassium (3.3-5.1) mmol/L Chloride (96-108) mmol/L Carbon Dioxide (22-29) mmol/L Anion Gap (12-20) BUN (9-16) mg/dL Creatinine (0.5-1.4) mg/dL Estim Creat Clear Calc Estimated GFR Random Glucose (60-115) mg/dL Calcium (8.4-10.2) mg/dL Magnesium (1.6-2.6) mg/dL Total Bilirubin (0.0-1.0) mg/dL Direct Bilirubin (0.0-0.5) mg/dL AST (5-31) U/L ALT (0-31) U/L Alkaline Phosphatase (39-117) U/L Total Protein (6.5-8.0) g/dL Albumin (3.5-5.0) g/dL Urine Color Yellow Urine Appearance Clear Urine pH 6.0 (5.0-9.0) Ur Specific [place] <= 1.005 (1.005-1.025) Urine Protein Negative (Neg-Trace) mg/dL Urine Glucose (UA) Negative (Negative) mg/dL Urine Ketones Negative (Negative) mg/dL Urine Blood Negative (Negative) Urine Nitrite Negative (Negative) Ur Leukocyte Esterase Negative (Negative) Urine Opiates Screen Not Detected (Not Detect) Urine Fentanyl Screen Not Detected (Not Detect) Ur Barbiturates Screen Not Detected (Not Detect) Ur Phencyclidine Scrn Not Detected (Not Detect) Ur Amphetamines Screen Not Detected (Not Detect) U Benzodiazepines Scrn Not Detected (Not Detect) Urine Cocaine Screen Not Detected (Not Detect) U Marijuana (THC) Screen Not Detected (Not Detect) Ethyl Alcohol mg/dL 03/28/23 03/28/23 Range/Units 18:56 18:56 WBC (4.8-10.8) X10*3/uL RBC (4.20-5.50) X10*6/uL Hgb (12.0-16.0) g/dl Hct (37.0-47.0) % MCV (80.0-98.0) fL MCH (27.0-33.0) pg MCHC (31.0-35.0) g/dl RDW (11.0-16.0) % Plt Count (160-400) X10*3/uL MPV (9.4-12.3) fL Immature Gran % (Auto) (0.0-0.4) % Neut % (Auto) (45-73) % Lymph % (Auto) (20-40) % Carlton % (Auto) (2-11) % Eos % (Auto) (0-4) % Baso % (Auto) (0-2) % Lymph # (Auto) (1.2-4.9) X10*3/uL [place] # (Auto) (0.1-1.2) X10*3/uL Eos # (Auto) (0.0-0.4) X10*3/uL Baso # (Auto) (0.0-0.2) X10*3/uL Abs Immat Gran (auto) (0.00-0.03) X10*3/uL Absolute Neuts (auto) (2.0-8.3) x10*3/uL Absolute Nucleated RBC (0.0-0.012) X10*3/uL Nucleated RBC % (auto) (0.0-0.2) /100WBC PT 11.1 (10.0-13.1) SEC INR 1.0 (0.9-1.1) Sodium 144 (135-145) mmol/L Potassium 3.9 (3.3-5.1) mmol/L Chloride 109 H (96-108) mmol/L Carbon Dioxide 26 (22-29) mmol/L Anion Gap 13 (12-20) BUN 7 L (9-16) mg/dL Creatinine 0.75 (0.5-1.4) mg/dL Estim Creat Clear Calc 98.1 Estimated GFR > 60 Random Glucose 86 (60-115) mg/dL Calcium 9.0 (8.4-10.2) mg/dL Magnesium 1.9 (1.6-2.6) mg/dL Total Bilirubin 0.3 (0.0-1.0) mg/dL Direct Bilirubin 0.1 (0.0-0.5) mg/dL AST 27 (5-31) U/L ALT 15 (0-31) U/L Alkaline Phosphatase 64 (39-117) U/L Total Protein 7.7 (6.5-8.0) g/dL Albumin 4.6 (3.5-5.0) g/dL Urine Color Urine Appearance Urine pH (5.0-9.0) Ur Specific [place] (1.005-1.025) Urine Protein (Neg-Trace) mg/dL Urine Glucose (UA) (Negative) mg/dL Urine Ketones (Negative) mg/dL Urine Blood (Negative) Urine Nitrite (Negative) Ur Leukocyte Esterase (Negative) Urine Opiates Screen (Not Detect) Urine Fentanyl Screen (Not Detect) Ur Barbiturates Screen (Not Detect) Ur Phencyclidine Scrn (Not Detect) Ur Amphetamines Screen (Not Detect) U Benzodiazepines Scrn (Not Detect) Urine Cocaine Screen (Not Detect) U Marijuana (THC) Screen (Not Detect) Ethyl Alcohol 321 H* mg/dL Discharge Plan Discharge Clinical Impression: Alcohol use disorder Patient Disposition: Elopement Prescriptions: No Action No Known Home Meds Interventions: ED Discharge Assessment Last Done: 03/28/23 21:11 Discharge Date/Time: 03/28/23 21:12
[2023-03-28 18:24] VITALS: BP 130/81; PULSE 109; RESP 16; TEMP 37.2; O2SAT 97; BMI 25.7
--- NOTE | 2023-03-28 18:27 | ECG_ITS ---
Test Reason : SIEZURE Blood Pressure : / mmHG Vent. Rate : 101 BPM Atrial Rate : 101 BPM P-R Int : 158 ms QRS Dur : 090 ms QT Int : 378 ms P-R-T Axes : 058 -28 046 degrees QTc Int : 490 ms Sinus tachycardia Possible Left atrial enlargement Septal infarct , age undetermined Abnormal ECG When compared with ECG of 07-AUG-2021 14:48, Vent. rate has increased BY 35 BPM other changes probably just from lead placement Referred By: Smita Davis Electronically Signed By:MARTINA DAVE
[2023-03-28 18:47] LABS: Appearance Urine Clear; Color Urine Yellow; Glucose Urine UA Negative (Negative); Leukocyte Esterase Urine Negative (Negative); Nitrite Urine Negative (Negative); Specific Gravity - Urine <= 1.005 (1.005-1.025); Urine Blood Negative (Negative); Urine Ketones Negative (Negative); Urine Protein Negative (Neg-Trace)
[2023-03-28 18:57] LABS: Amphetamine Screen Urine Not Detected (Not Detect); Barbiturates, Urine Not Detected (Not Detect); Benzodiazepines Screen Urine Not Detected (Not Detect); Cannabinoid Screen Urine Not Detected (Not Detect); Cocaine Screen Urine Not Detected (Not Detect); Fentanyl, urine Not Detected (Not Detect); Opiate Screen Urine Not Detected (Not Detect); Phencyclidine Screen Urine Not Detected (Not Detect)
[2023-03-28 18:59] LABS: MANUAL DIFF FLAG NO
[2023-03-28 19:01] LABS: Basophils Percent Auto 0.6 % (0-2); Hematocrit 41.1 % (37.0-47.0); Hemoglobin 13.4 g/dl (12.0-16.0); Imm Gran Abs Auto 0.01 X10*3/uL (0.00-0.03); Imm Gran Pct Auto 0.1 % (0.0-0.4); Lymphocytes Absolute Auto 1.5 X10*3/uL (1.2-4.9); Lymphocytes Percent Auto 22.6 % (20-40); Mean Corpuscular HGB Conc 32.6 g/dl (31.0-35.0); Mean Corpuscular Hemoglobin 26.1 pg (27.0-33.0); Mean Corpuscular Volume 80.1 fL (80.0-98.0); Mean Platelet Volume 9.8 fL (9.4-12.3); Monocytes Absolute Auto 0.3 X10*3/uL (0.1-1.2); Monocytes Percent Auto 4.1 % (2-11); Neutrophils Absolute Auto 4.9 x10*3/uL (2.0-8.3); Neutrophils Percent Auto 72.6 % (45-73); Platelet Count 264 X10*3/uL (160-400); Red Blood Count 5.13 X10*6/uL (4.20-5.50); Red Cell Distribution Width 14.6 % (11.0-16.0); White Blood Count 6.8 X10*3/uL (4.8-10.8)
[2023-03-28 19:07] LABS: Prothrombin Time 11.1 SEC (10.0-13.1)
[2023-03-28 19:16] LABS: Alanine Aminotransferase 15 U/L (0-31); Albumin Level 4.6 g/dL (3.5-5.0); Alkaline Phosphatase 64 U/L (39-117); Anion Gap 13 (12-20); Aspartate Amino Transferase 27 U/L (5-31); Bilirubin Direct 0.1 mg/dL (0.0-0.5); Bilirubin Total 0.3 mg/dL (0.0-1.0); Blood Urea Nitrogen 7 mg/dL (9-16); Carbon Dioxide 26 mmol/L (22-29); Chloride 109 mmol/L (96-108); Creatinine Clr Calc Pharmacy 98.1; Estimated Glomerular Filt Rate > 60; Ethanol 321 mg/dL; Glucose Random 86 mg/dL (60-115); Magnesium 1.9 mg/dL (1.6-2.6); Potassium 3.9 mmol/L (3.3-5.1); Sodium 144 mmol/L (135-145); Total Protein 7.7 g/dL (6.5-8.0)
--- NOTE | 2023-03-28 22:20 | MHC.CARE ---
Per VC from CARE Team, pt was brought in by [facility] co -response due to endorsing vague SI while under the influence. Pt reported she had a seizure yesterday therefore was brought to the main ED. According to [facility] clinician, pt is well known and would likely recant SI when sober however pt eloped. Pt's BAL was 321
== END 2023-03-28 21:12 | disposition left against medical advice (07) ==
PROVIDERS: Physician Assistant; Emergency Provider Emergency Medicine
DX: F10.19 Alcohol abuse with unspecified alcohol-induced disorder (principal); F10.120 Alcohol abuse with intoxication, uncomplicated; Y90.8 Blood alcohol level of 240 mg/100 ml or more; Z79.899 Other long term (current) drug therapy
CPT/HCPCS: 36415; 80048; 80076; 80307; 81003; 83735; 85025; 85610; 93005; 99283

== ENCOUNTER 2023-06-01 23:56 | Emergency (ER) | payer OTHER, SELFPAY | END 2023-06-02 00:09 | disposition left against medical advice (07) | PROVIDERS: Emergency Provider Emergency Medicine | DX: R06.02 Shortness of breath (principal) ==

== ENCOUNTER 2023-06-02 19:39 | Emergency (ER) | payer OTHER, SELFPAY ==
[2023-06-02 19:57] VITALS: BMI 27.5
[2023-06-02 20:05] VITALS: BP 129/87; PULSE 111; RESP 17; TEMP 36.8; O2SAT 96
[2023-06-02] MEDS: Haloperidol Lactate 5 MG/ML VIAL IM (20:10)
[2023-06-02] MEDS: diphenhydrAMINE HCL 50 MG/ML VIAL IM (20:10)
[2023-06-02] MEDS: LORazepam 2 MG/ML VIAL IM (20:10)
[2023-06-02 20:20] VITALS: RESP 17
[2023-06-02 20:35] VITALS: RESP 17
[2023-06-02 20:44] LABS: MANUAL DIFF FLAG NO
[2023-06-02 20:45] LABS: Basophils Percent Auto 0.5 % (0-2); Eosinophils Percent Auto 0.3 % (0-4); Hematocrit 40.7 % (37.0-47.0); Hemoglobin 13.4 g/dl (12.0-16.0); Imm Gran Abs Auto 0.01 X10*3/uL (0.00-0.03); Imm Gran Pct Auto 0.1 % (0.0-0.4); Lymphocytes Absolute Auto 2.3 X10*3/uL (1.2-4.9); Lymphocytes Percent Auto 28.9 % (20-40); Mean Corpuscular HGB Conc 32.9 g/dl (31.0-35.0); Mean Corpuscular Volume 78.9 fL (80.0-98.0); Mean Platelet Volume 9.3 fL (9.4-12.3); Monocytes Absolute Auto 0.4 X10*3/uL (0.1-1.2); Monocytes Percent Auto 5.5 % (2-11); Neutrophils Absolute Auto 5.2 x10*3/uL (2.0-8.3); Neutrophils Percent Auto 64.7 % (45-73); Platelet Count 298 X10*3/uL (160-400); Red Blood Count 5.16 X10*6/uL (4.20-5.50); Red Cell Distribution Width 15.4 % (11.0-16.0)
[2023-06-02 20:50] VITALS: RESP 16
--- NOTE | 2023-06-02 20:56 | ED.GENADULT ---
HPI - General Adult General Chief complaint: Psychiatric Symptoms Stated complaint: Crisis/etoh Time Seen by Provider: 06/02/23 19:59 Source: patient and RN notes reviewed Mode of arrival: EMS Limitations: other (Acute alcohol intoxication) History of Present Illness HPI narrative: 32-year-old female presents for evaluation for multiple complaints. At the time my evaluation the patient is uncooperative and only answers a few questions. She is constantly exclaiming that she wants to be ?admitted to [facility] because they will take care me. She then states that she wants to go to [facility] She is making accusations against ER staff at this facility and does not like the way she is being treated The patient apparently mention to EMS and police department that she was suicidal She does not tell me that she is or is not suicidal The patient admits to alcohol abuse and reports that she has a problem that she is seeking help with She was unable/unwilling to tell me when her last drink was Related Data Home Medications Medication Instructions Recorded Confirmed buspirone 15 mg tablet 15 mg PO BID 06/02/23 06/02/23 folic acid 1 mg tablet 1 mg PO DAILY 06/02/23 06/02/23 hydroxyzine HCl 50 mg tablet 50 mg PO BID PRN Anxiety 06/02/23 06/02/23 melatonin 3 mg tablet 3 mg PO BEDTIME 06/02/23 06/02/23 sertraline 100 mg tablet 100 mg PO DAILY 06/02/23 06/02/23 trazodone 50 mg tablet 50 mg PO BEDTIME 06/02/23 06/02/23 Allergies Allergy/AdvReac Type Severity Reaction Status Date / Time No Known Allergies Allergy Verified 07/03/22 22:59 [No Known Allergies*] Review of Systems Review of Systems: Review of systems limited secondary to patient's cooperation [facility] Past Medical History Medical History Alcohol abuse with withdrawal delirium Alcohol use disorder Alcohol withdrawal delirium Alcohol withdrawal seizure Alcoholism Anxiety Bulimia Chronic post-traumatic stress disorder (PTSD) Depression SANDY (generalized anxiety disorder) MDD (major depressive disorder), recurrent episode, moderate MDD (major depressive disorder), recurrent episode, severe Panic attack Family History Family History Brother Substance abuse Social History Social History Household Members: Family Housing: Apartment Do you presently have visiting nurse or other home services: No Alcohol intake: current Alcohol intake frequency: former alcohol drinker Alcohol type: hard liquor Patient Tobacco Use Status: Never used Tobacco e-Cigarette/Vaping Use: Never Used Second Hand Smoke Exposure: No Substance Use Type: Marijuana Advance Directives: No Advance Directives Information Provided: Yes Healthcare Proxy: No Guardian: No service: No Current occupational status: unemployed Sexual orientation: Straight/Heterosexual Physical Exam ED Vital Signs: Vital Signs - 24 hr 06/02/23 20:05 06/02/23 20:20 06/02/23 20:35 Temperature 98.2 F Pulse Rate 111 H Respiratory Rate 17 17 17 Blood Pressure 129/87 Pulse Oximetry 96 Oxygen Delivery Method Room Air 06/02/23 20:50 06/02/23 21:05 06/03/23 07:09 Temperature 97.2 F Pulse Rate 101 H Respiratory Rate 16 16 16 Blood Pressure 133/82 Pulse Oximetry 99 Oxygen Delivery Method Room Air 06/03/23 15:18 Temperature 98.2 F Pulse Rate 107 H Respiratory Rate 20 Blood Pressure 136/86 Pulse Oximetry 99 Oxygen Delivery Method Room Air BMI result Body Mass Index 27.5 Const General: healthy appearing, comfortable, no acute distress, alert, awake and combative; No cooperative Nutritional Appearance: well nourished Orientation/consciousness: patient oriented x3 HENMT Head: Yes normocephalic and Yes atraumatic Eyes Eyelids: Yes eyelids normal Conjunctivae: conjunctivae normal Sclerae: sclerae normal Corneas: corneas normal Pupils: Equal, round and reactive pupils present EOM: EOMs intact bilaterally Neck Neck: Yes full ROM Resp Effort & Inspection: normal respiratory effort, able to speak in complete sentences and not labored Skin General skin exam: no rashes or lesions noted and elasticity normal Neuro General: patient oriented x3 Cranial nerves: Yes Equal, round and reactive pupils present and Yes Bilaterally intact EOM present Cognition (Neuro): normal cognition Extrem Other: Moving all extremities well without any obvious deformities Course Reevaluation(s) Reevaluation #1: The patient medically cleared, awaiting care team evaluation but is still somewhat sleepy from chemical sedation earlier he he makes with the alcohol level. Patient will be signed out to the overnight staff Time: 01:48 Reevaluation #2: Continue physician observation. ETOH positive, pending care team evaluation, claims of suicidal ideation and required physical and chemical restraint last night at 20:05 thereafter no events. Patient placed on CIWA and medication reconciliation is completed. Time: 07:18 Reevaluation #3: Care team evaluated patient and think that she is safe for discharge to home. Collateral information obtained from the family who does not feel that there are any concerns aside from her alcohol use. She is otherwise discharged home in stable condition. Time: 17:03 Medications Administered Generic Name Dose Route Start Last Admin Trade Name Freq PRN Reason Stop Dose Admin Buspirone HCl 15 mg 06/03/23 09:00 06/03/23 08:03 Buspirone Hcl 5 Mg Tablet PO 15 mg BID EDEN Administration Folic Acid 1 mg 06/03/23 09:00 06/03/23 08:03 Folic Acid 1 Mg Tablet PO 1 mg DAILY EDEN Administration Hydroxyzine HCl 50 mg 06/03/23 07:19 06/03/23 10:04 Hydroxyzine Hcl 50 Mg Tablet PO 50 mg BID PRN Administration Anxiety Sertraline HCl 100 mg 06/03/23 09:00 06/03/23 08:03 Sertraline Hcl 100 Mg Tablet PO 100 mg DAILY EDEN Administration Discontinued Medications Generic Name Dose Route Start Last Admin Trade Name Freq PRN Reason Stop Dose Admin Diphenhydramine HCl 50 mg 06/02/23 20:04 06/02/23 20:10 Diphenhydramine Hcl 50 Mg/Ml Vial IM 06/02/23 20:05 50 mg ONCE ONE Administration Haloperidol Lactate 5 mg 06/02/23 20:04 06/02/23 20:10 Haloperidol Lactate 5 Mg/Ml Vial IM 06/02/23 20:05 5 mg STAT STA Administration Lorazepam 2 mg 06/02/23 20:04 06/02/23 20:10 Lorazepam 2 Mg/Ml Vial IM 06/02/23 20:05 2 mg STAT STA Administration Medical Decision Making Medical Decision Making MDM Narrative: I was asked to evaluate the patient because she was becoming increasingly agitated shortly after arrival and demanding to leave/requesting to be sent to another hospital. When I attempted to evaluate the patient, she is uncooperative, not answering my questions are allowing for proper evaluation. She began making threats to emergency room staff. At that time she was medically and physically restrained for her safety and the safety of staff. The patient will likely require a course evaluation as she did make suicidal comments Differential Diagnosis Alcohol abuse Polysubstance abuse Bipolar disorder Schizophrenia Mood disorder Depression Anxiety Suicidal ideation Consult Healthcare Provider Management of the patient was discussed with: Behavioral Health Provider Lab Data MDM Lab Attestation statement: I reviewed the patient's lab results. No leukocytosis, no anemia, normal platelet level. No electrolyte abnormalities, normal renal function. Ethanol level elevated to 329. 06/02/23 20:32 06/02/23 20:32 Labs: Lab Results 06/02/23 06/02/23 06/02/23 Range/Units 20:32 20:32 20:32 WBC 8.0 (4.8-10.8) X10*3/uL RBC 5.16 (4.20-5.50) X10*6/uL Hgb 13.4 (12.0-16.0) g/dl Hct 40.7 (37.0-47.0) % MCV 78.9 L (80.0-98.0) fL MCH 26.0 L (27.0-33.0) pg MCHC 32.9 (31.0-35.0) g/dl RDW 15.4 (11.0-16.0) % Plt Count 298 (160-400) X10*3/uL MPV 9.3 L (9.4-12.3) fL Immature Gran % (Auto) 0.1 (0.0-0.4) % Neut % (Auto) 64.7 (45-73) % Lymph % (Auto) 28.9 (20-40) % Page % (Auto) 5.5 (2-11) % Eos % (Auto) 0.3 (0-4) % Baso % (Auto) 0.5 (0-2) % Lymph # (Auto) 2.3 (1.2-4.9) X10*3/uL Page # (Auto) 0.4 (0.1-1.2) X10*3/uL Eos # (Auto) 0.0 (0.0-0.4) X10*3/uL Baso # (Auto) 0.0 (0.0-0.2) X10*3/uL Abs Immat Gran (auto) 0.01 (0.00-0.03) X10*3/uL Absolute Neuts (auto) 5.2 (2.0-8.3) x10*3/uL Absolute Nucleated RBC 0.000 (0.0-0.012) X10*3/uL Nucleated RBC % (auto) 0.0 (0.0-0.2) /100WBC Sodium 141 (135-145) mmol/L Potassium 3.4 (3.3-5.1) mmol/L Chloride 103 (96-108) mmol/L Carbon Dioxide 23 (22-29) mmol/L Anion Gap 18 (12-20) BUN 7 L (9-16) mg/dL Creatinine 0.67 (0.5-1.4) mg/dL Estim Creat Clear Calc 122.0 Estimated GFR > 60 Random Glucose 74 (60-115) mg/dL Calcium 9.1 (8.4-10.2) mg/dL Total Bilirubin 0.4 (0.0-1.0) mg/dL AST 25 (5-31) U/L ALT 12 (0-31) U/L Alkaline Phosphatase 67 (39-117) U/L Total Protein 7.9 (6.5-8.0) g/dL Albumin 4.3 (3.5-5.0) g/dL Lipase 17 (8-78) U/L Beta HCG, Quant < 2 mIU/mL Urine Color Urine Appearance Urine pH (5.0-9.0) Ur Specific [place] (1.005-1.025) Urine Protein (Neg-Trace) mg/dL Urine Glucose (UA) (Negative) mg/dL Urine Ketones (Negative) mg/dL Urine Blood (Negative) Urine Nitrite (Negative) Ur Leukocyte Esterase (Negative) Urine RBC (0-2) /HPF Urine WBC (0-5) /HPF Ur Squamous Epith Cells (0-2) /HPF Urine Bacteria (None Seen) Hyaline Casts (0-2) /LPF Urine Test (NEGATIVE) Salicylates < 5.0 L (15-30) mg/dL Urine Opiates Screen (Not Detect) Urine Fentanyl Screen (Not Detect) Acetaminophen < 17 (<30) mcg/mL Ur Barbiturates Screen (Not Detect) Ur Phencyclidine Scrn (Not Detect) Ur Amphetamines Screen (Not Detect) U Benzodiazepines Scrn (Not Detect) Urine Cocaine Screen (Not Detect) U Marijuana (THC) Screen (Not Detect) Ethyl Alcohol 329 H* mg/dL 06/03/23 06/03/23 06/03/23 Range/Units 07:03 07:03 07:03 WBC (4.8-10.8) X10*3/uL RBC (4.20-5.50) X10*6/uL Hgb (12.0-16.0) g/dl Hct (37.0-47.0) % MCV (80.0-98.0) fL MCH (27.0-33.0) pg MCHC (31.0-35.0) g/dl RDW (11.0-16.0) % Plt Count (160-400) X10*3/uL MPV (9.4-12.3) fL Immature Gran % (Auto) (0.0-0.4) % Neut % (Auto) (45-73) % Lymph % (Auto) (20-40) % Page % (Auto) (2-11) % Eos % (Auto) (0-4) % Baso % (Auto) (0-2) % Lymph # (Auto) (1.2-4.9) X10*3/uL Page # (Auto) (0.1-1.2) X10*3/uL Eos # (Auto) (0.0-0.4) X10*3/uL Baso # (Auto) (0.0-0.2) X10*3/uL Abs Immat Gran (auto) (0.00-0.03) X10*3/uL Absolute Neuts (auto) (2.0-8.3) x10*3/uL Absolute Nucleated RBC (0.0-0.012) X10*3/uL Nucleated RBC % (auto) (0.0-0.2) /100WBC Sodium (135-145) mmol/L Potassium (3.3-5.1) mmol/L Chloride (96-108) mmol/L Carbon Dioxide (22-29) mmol/L Anion Gap (12-20) BUN (9-16) mg/dL Creatinine (0.5-1.4) mg/dL Estim Creat Clear Calc Estimated GFR Random Glucose (60-115) mg/dL Calcium (8.4-10.2) mg/dL Total Bilirubin (0.0-1.0) mg/dL AST (5-31) U/L ALT (0-31) U/L Alkaline Phosphatase (39-117) U/L Total Protein (6.5-8.0) g/dL Albumin (3.5-5.0) g/dL Lipase (8-78) U/L Beta HCG, Quant mIU/mL Urine Color Yellow Urine Appearance Clear Urine pH 5.5 (5.0-9.0) Ur Specific [place] 1.015 (1.005-1.025) Urine Protein Negative (Neg-Trace) mg/dL Urine Glucose (UA) Negative (Negative) mg/dL Urine Ketones 15 (Negative) mg/dL Urine Blood Negative (Negative) Urine Nitrite Negative (Negative) Ur Leukocyte Esterase Small (1+) H (Negative) Urine RBC 0-2 (0-2) /HPF Urine WBC 11-20 H (0-5) /HPF Ur Squamous Epith Cells 6-10 (0-2) /HPF Urine Bacteria None Seen (None Seen) Hyaline Casts 0-2 (0-2) /LPF Urine Test NEGATIVE (NEGATIVE) Salicylates (15-30) mg/dL Urine Opiates Screen Not Detected (Not Detect) Urine Fentanyl Screen Not Detected (Not Detect) Acetaminophen (<30) mcg/mL Ur Barbiturates Screen Not Detected (Not Detect) Ur Phencyclidine Scrn Not Detected (Not Detect) Ur Amphetamines Screen Not Detected (Not Detect) U Benzodiazepines Scrn Not Detected (Not Detect) Urine Cocaine Screen Not Detected (Not Detect) U Marijuana (THC) Screen Not Detected (Not Detect) Ethyl Alcohol mg/dL Discharge Plan Discharge Clinical Impression: Alcohol use disorder, Suicidal ideation Patient Disposition: Still a Patient Prescriptions: No Action trazodone 50 mg tablet 50 mg PO BEDTIME sertraline 100 mg tablet 100 mg PO DAILY hydroxyzine HCl 50 mg tablet 50 mg PO BID PRN (Reason: Anxiety) melatonin 3 mg tablet 3 mg PO BEDTIME folic acid 1 mg tablet 1 mg PO DAILY buspirone 15 mg tablet 15 mg PO BID Interventions: [place]-Suicide Risk Severity Scale Last Done: 06/03/23 06:25
[2023-06-02 21:00] LABS: Alanine Aminotransferase 12 U/L (0-31); Albumin Level 4.3 g/dL (3.5-5.0); Alkaline Phosphatase 67 U/L (39-117); Anion Gap 18 (12-20); Aspartate Amino Transferase 25 U/L (5-31); Bilirubin Total 0.4 mg/dL (0.0-1.0); Blood Urea Nitrogen 7 mg/dL (9-16); Calcium 9.1 mg/dL (8.4-10.2); Carbon Dioxide 23 mmol/L (22-29); Chloride 103 mmol/L (96-108); Estimated Glomerular Filt Rate > 60; Ethanol 329 mg/dL; Glucose Random 74 mg/dL (60-115); Lipase 17 U/L (8-78); Potassium 3.4 mmol/L (3.3-5.1); Sodium 141 mmol/L (135-145); Total Protein 7.9 g/dL (6.5-8.0)
[2023-06-02 21:02] LABS: Acetaminophen LAB < 17 mcg/mL (<30); Salicylate < 5.0 mg/dL (15-30)
[2023-06-02 21:05] VITALS: RESP 16
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
[2023-06-03 02:21] LABS: HCG Quantitative < 2 mIU/mL
[2023-06-03 07:09] VITALS: BP 133/82; PULSE 101; RESP 16; TEMP 36.2; O2SAT 99
[2023-06-03 07:24] LABS: Amphetamine Screen Urine Not Detected (Not Detect); Barbiturates, Urine Not Detected (Not Detect); Benzodiazepines Screen Urine Not Detected (Not Detect); Cannabinoid Screen Urine Not Detected (Not Detect); Cocaine Screen Urine Not Detected (Not Detect); Fentanyl, urine Not Detected (Not Detect); Opiate Screen Urine Not Detected (Not Detect); Phencyclidine Screen Urine Not Detected (Not Detect)
[2023-06-03 07:28] LABS: Appearance Urine Clear; Color Urine Yellow; Glucose Urine UA Negative (Negative); Nitrite Urine Negative (Negative); PH 5.5 (5.0-9.0); Specific Gravity - Urine 1.015 (1.005-1.025); Urine Blood Negative (Negative); Urine Ketones 15 mg/dL (Negative); Urine Protein Negative (Neg-Trace)
[2023-06-03 07:29] LABS: Leukocyte Esterase Urine Small (1+) (Negative); UMIC TRIGGER UACC YES; UPreg QC Valid YES; Urine Pregnancy NEGATIVE (NEGATIVE)
--- NOTE | 2023-06-03 07:34 | PC.NURSE ---
Resumed care of patient this morning, she was up and able to ambulate to the bathroom and give urine sample. Pt has since returned to her room and is currently resting. All safety measures in place. Plan to be evaluated by audie today
[2023-06-03 07:37] LABS: Bacteria Urine None Seen (None Seen); Hyaline Casts Urine 0-2 /LPF (0-2); RBC Urine 0-2 /HPF (0-2); UACC Culture Trigger YES
[2023-06-03] MEDS: busPIRone HCl 5 MG TABLET 15 MG PO (08:03)
[2023-06-03] MEDS: Sertraline HCL 100 MG TABLET PO (08:03)
[2023-06-03] MEDS: Folic Acid 1 MG TABLET PO (08:03)
[2023-06-03] MEDS: hydrOXYzine HCL 50 MG TABLET PO (10:04)
--- NOTE | 2023-06-03 10:35 | PC.NURSE ---
Mom and step father called for an update. Update given to patient is awaiting care team at this time.
[2023-06-03 15:18] VITALS: BP 136/86; PULSE 107; RESP 20; TEMP 36.8; O2SAT 99
== END 2023-06-03 17:18 | disposition home or self-care (01) ==
PROVIDERS: Physician Assistant; Emergency Provider Emergency Medicine
DX: F33.1 Major depressive disorder, recurrent, moderate (principal); R45.851 Suicidal ideations; F10.129 Alcohol abuse with intoxication, unspecified; Y90.8 Blood alcohol level of 240 mg/100 ml or more; Z79.899 Other long term (current) drug therapy
CPT/HCPCS: 36415; 80053; 80143; 80179; 80307; 81001; 81025; 83690; 84702; 85025; 87086; 96372; 99285; J1200; J2060; S9485

== ENCOUNTER 2023-08-02 16:50 | Emergency (ER) | payer OTHER, SELFPAY ==
[2023-08-02 16:56] VITALS: BP 132/78; PULSE 102; O2SAT 99
[2023-08-02 17:03] VITALS: BP 134/94; PULSE 104; RESP 17; TEMP 36.3; O2SAT 97
[2023-08-02 17:04] VITALS: BP 134/94; PULSE 104; RESP 18; TEMP 36.3; O2SAT 97; BMI 27.5
--- OUTSIDE RECORDS SUMMARY | 2023-08-02 17:23 | XMS_ITS | Continuity of Care Document ---
Author Name Unknown Organization [facility] Address [address] [place] [address]- Care Team Providers Care Transportation Solutions Manager Name Role Phone Mike Franks MD Primary Care Physician [phone] Encounter [facility] Date(s): 10/16/19 - 01/09/20 [facility] [address] [place] [address]- [facility] Attending Physician: Joseph Knutson MD Referring Physician: Not on Staff, Referring MD Allergies, Adverse Reactions, Alerts Substance Reaction Severity Status NKA Active Medications metformin 1000 mg oral tablet 1 tablet = 1,000 mg, By Mouth, 2 times a day, # 60 tablet, 5 Refills Start Date: 06/22/09 Stop Date: 07/22/09 Status: Ordered Vaniqa topical cream 1 application, Topically, 2 times a day, # 30 Gm, 5 Refills Start Date: 06/22/09 Status: Ordered
--- OUTSIDE RECORDS SUMMARY | 2023-08-02 17:23 | XMS_ITS | Continuity of Care Document ---
Author Name Unknown Organization [facility] ter Address [address] [place] [id number] Care Team Providers Care Sheet [employer] Name Role Phone Mike Franks MD Primary Care Physician En[place] [facility] [place](s): 02/17/22 - 02/19/[address] [address]- Encounter Diagnosis Visual hallucination(Final) - 02/17/22 Discharge Disposition: A-D/C Home Attending Physician: Slim Grace MD Admitting Physician: Consuelo Shah MD Referring Physician: Not on Staff, Referring MD Allergies, Adverse Reactions, Alerts No Known Allergies Medications folic acid 1 mg oral tablet 1 mg, 1, tablet, By Mouth, Daily, # 30 tablet, Refills 0, Tot. Refills 0, Maintenance, 02/16/22 11:00:00 EDT, Route to Pharmacy Electronically, [facility], Partial fill upon patient request if the prescription is for a schedule II opioid... Start Date: 02/16/22 Stop Date: 03/18/22 Status: Ordered melatonin 3 mg oral tablet 1 tablet = 3 mg, By Mouth, Daily at bedtime, PRN Insomnia, for 30 days, # 30 tablet, 0 Refills, Acute 03/18/22 11:01:00 EDT, 02/16/22 11:01:00 EDT, Tablet, [facility], Partial fill uponpatient request if the prescription is for a schedu... Start Date: 02/16/22 Stop Date: 03/18/22 Status: Ordered multivitamin Vitamin B Complex oral tablet 1 tablet, By Mouth, Daily, # 30 tablet, 0 Refills, Maintenance, 01/28/21 13:19:00 EST, Tablet, [facility], Partial fill upon patient request if the prescription is for a schedule II opioid drug., 1 tablet By Mouth Daily,x30 days, 163, cm... Start Date: 01/28/21 Stop Date: 02/27/21 Status: Ordered thiamine 100 mg oral tablet 100 mg, 1, tablet, By Mouth, Daily, for 30 days, # 30 tablet, Refills 0, Tot. Refills 0, Acute 03/18/22 11:01:00 EDT, 02/16/22 11:01:00 EDT, Route to Pharmacy Electronically, [facility], Partial fill upon patient request if the prescript... Start Date: 02/16/22 Stop Date: 03/18/22 Status: Ordered venlafaxine 150 mg oral capsule, extended release 1 capsule = 150 mg, By Mouth, Daily, Maintenance, 07/28/21 11:54:00 EDT, ER Capsule, ; Start Date: 07/28/21 Status: Ordered venlafaxine 37.5 mg oral capsule, extended release 37.5 mg, 1, capsule, By Mouth, Daily, add to 150 mg velnafaxine to make dose of 187.5 mg in total.,# 30 capsule, Refills 0, Tot. Refills 0, Maintenance, 02/16/22 11:00:00 EDT, Route to Pharmacy Electronically, [facility], Partial fill u... Start Date: 02/16/22 Stop Date: 03/18/22 Status: Ordered Problem List Condition Effective Dates Status Health Status Inform ant anxiety(Confirmed) Active Vital Signs Most recent to oldest [Reference Range]: 1 2 3 Height 160 cm (02/19/22 5:46 AM) 160 cm (02/18/22 11:02 PM) 160 cm (02/18/22 5:31 PM) Weight 63.1 kg (02/18/22 3:26 PM) 66 kg (02/18/22 11:26 AM) 66 kg (02/17/22 4:36 PM) Oxygen Saturation [94-100 %] 100 % (02/19/22 5:46 AM) 99 % (02/18/22 11:02 PM) 100 % (02/18/22 5:31 PM) Pulse Rate [55-90 bpm] 83 bpm (02/19/22 5:46 AM) 76 bpm (02/18/22 11:02 PM) 68 bpm (02/18/22 5:31 PM) Body Mass Index [18.5-24.99] 24.65 (02/18/22 3:26 PM) 25.78 *H* (02/18/22 11:26 AM) Blood Pressure [90-138/55-84 mm Hg] 131/87mm Hg (02/19/22 5:00 AM) 127/86mm Hg (02/18/22 11:02 PM) 115/61mm Hg (02/18/22 5:31 PM) Respiratory Rate [16-30 br/min] 17 br/min (02/19/22 5:46 AM) 17 br/min (02/18/22 11:02 PM) 18 br/min (02/18/22 5:31 PM) Temperature [96.8-100.4 DegF] 98.4 DegF (02/19/22 5:46 AM) 98.5 DegF (02/18/22 11:02 PM) 98.7 DegF (02/18/22 5:31 PM) Mode of Delivery (Oxygen) Room air (02/19/22 5:46 AM) Room air (02/18/22 11:02 PM) Room air (02/18/22 5:31 PM) Blood pressure sites Arm, right (02/19/22 5:46 AM) Arm, right (02/18/22 11:02 PM) Arm, right (02/18/22 5:31 PM) Temperature Route Oral (02/19/22 5:46 AM) Oral (02/18/22 11:02 PM) Oral (02/18/22 5:31 PM) Dry Weight 63.1 kg (02/18/22 3:26 PM) Weight Obtained Via Bed scale (02/18/22 3:26 PM) Patient/family stated (02/17/22 4:36 PM)
--- OUTSIDE RECORDS SUMMARY | 2023-08-02 17:23 | XMS_ITS | Continuity of Care Document ---
Author Name Unknown Organization [facility] ter Address [address] [place] [id number] Care Team Providers Care Over The Road Driver Name Role Phone Mike Franks MD Primary Care Physician Encounter [facility] Date(s): 06/08/23 - 06/12/[address] [id number]- Encounter Diagnosis Alcohol withdrawal(Final) - 06/08/23 Discharge Disposition: A-D/C Home Attending Physician: Ana Luisa WARD, Laura Adkins Admitting Physician: Gwendolyn WARD, Chay Referring Physician: Not on Staff, Referring MD Allergies, Adverse Reactions, Alerts No Known Allergies Medications busPIRone 15 mg oral tablet 1 tablet = 15 mg, By Mouth, 2 times a day, # 60 tablet, 0 Refills, Maintenance, 04/05/23 8:19:00 EDT, Tablet, [id number], Partial fill upon patient request if the prescription is for a schedule II opioid drug., 160, cm, 04/04/23 19:43:00 EDT,... Start Date: 04/05/23 Status: Ordered folic acid 1 mg oral tablet 1 mg, 1, tablet, By Mouth, Daily, Refills 0, Maintenance, 04/05/23 9:29:00 EDT, Partial fill upon patient request if the prescription is for a schedule II opioid drug. Start Date: 04/05/23 Status: Ordered hydrOXYzine pamoate 50 mg oral capsule 1 capsule = 50 mg, By Mouth, 2 times a day, PRN Anxiety, # 60 capsule, 0 Refills, Maintenance, 04/05/23 8:19:00 EDT, Capsule, [id number], Partial fill upon patient request if the prescriptionis for a schedule II opioid drug., 160, cm, ... Start Date: 04/05/23 Status: Ordered melatonin 3 mg oral tablet 1 tablet = 3 mg, By Mouth, Daily at bedtime, # 30 tablet, 0 Refills, Maintenance, 04/05/23 8:19:00 EDT, Tablet, [id number], Partial fill upon patient request if the prescription is for a schedule II opioid drug., 160, cm, 04/04/23 19:43:00 EDT... Start Date: 04/05/23 Status: Ordered Multivitamin Tablet 1 tablet, By Mouth, Daily, 0 Refills, Maintenance, 04/05/23 9:29:00 EDT, Tablet, Partial fill upon patient request if the prescription is for a schedule II opioid drug. Start Date: 04/05/23 Status: Ordered naltrexone 380 mg intramuscular injection, extended release = 380 mg, Intramuscular, Every 28 days, next due on 05/02/23, # 1 each, 0 Refills, Maintenance, 05/02/23 8:20:00 EDT, [id number], Partial fill upon patient request if the prescription is for aschedule II opioid drug., 160, cm, 04/04/23 19:43:0... Start Date: 05/02/23 Status: Ordered Ocular Lubricant Eyes, Both, Every 4 hours, PRN Other, Dryness., 0 Refills, Maintenance, 04/05/23 9:25:00 EDT, [facility], Partial fill upon patient request if the prescription is for a schedule II opioid drug. Start Date: 04/05/23 Status: Ordered prazosin 1 mg oral capsule 3 mg, 3, capsule, By Mouth, Daily at bedtime, # 90 capsule, Refills 0, Tot. Refills 0, Maintenance,04/05/23 8:19:00 EDT, Route to Pharmacy Electronically, [id number], Partial fill upon patient request if the prescription is for a schedule II... Start Date: 04/05/23 Status: Ordered pyridoxine 50 mg oral tablet 50 mg, 1, tablet, By Mouth, Daily, Refills 0, Maintenance, 04/05/23 9:29:00 EDT, Partial fill upon patient request if the prescription is for a schedule II opioid drug. Start Date: 04/05/23 Status: Ordered sertraline 100 mg oral tablet 1 tablet = 100 mg, By Mouth, Daily, # 30 tablet, 0 Refills, Maintenance, 04/05/23 8:19:00 EDT, Tablet, [id number], Partial fill upon patient request if the prescription is for a schedule II opioid drug., 160, cm, 04/04/23 19:43:00 EDT, Height,... Start Date: 04/05/23 Status: Ordered traZODone 100 mg oral tablet 100 mg, 1, tablet, By Mouth, Daily at bedtime, # 30 tablet, Refills 0, Tot. Refills 0, Maintenance,04/05/23 8:20:00 EDT, Route to Pharmacy Electronically, [facility]/pharmacy #[id number], Partial fill upon patient request if the prescription is for a schedule II... Start Date: 04/05/23 Status: Ordered Problem List Condition Confirmation Course Effective Dates Status Health St atus Informant anxiety Confirmed Active GERD without esophagitis Confirmed Active PCOS (polycystic ovarian syndrome) Confirmed Active Results Radiology Reports * Exam Date Time Procedure Performing Provider Status 06/09/23 2:[address] Cervical Spine W/O Contrast Sergio Montielg; Auth (Verified) Notes: (CT Cervical Spine W/O Contrast) Reason For Exam: Fall with loss of consciousness;Other: RESULT: CT Cervical Spine W/O Contrast CT Head/Brain W/O Contrast, CT Cervical Spine W/O Contrast INDICATION: Infarction; Fall with loss of consciousness TECHNIQUE: Noncontrast head CT using axial technique was reconstructed in axial and coronal planes.Noncontrast spiral CT through the cervical spine was formatted in 3 planes. Automatic tube modulation was used for the cervical spine and iterative dose reconstruction was used for both the head and cervical spine to optimize scan parameters and image quality. CTDIvol Body: 12.50 mGy, DLP Body: 329 mGy*cm. CTDIvol Head: 39.90 mGy, DLP Head: 671 mGy*cm. COMPARISON: Multiple priors most recently 01/20/2023. FINDINGS: [place] Findings, Lines and Tubes: None. BRAIN AND EXTRA-AXIAL SPACES: No parenchymal hemorrhage, midline shift, or mass effect. Ugarte-white matter differentiation is wellpreserved. No acute infarct. Ventricles, sulci, and basilar cisterns are normal. No white matter lesions. No subarachnoid hemorrhage. No subdural or epidural collection. CALVARIUM, SKULL BASE, AND SOFT TISSUES: No fractures or suspicious bony lesions. The paranasal sinuses and mastoid air cells are clear. Visualized orbits and globes are intact. The extracranial soft tissues are unremarkable. CERVICAL SPINE: No fracture. No acute osseous abnormalities. Normal alignment. No locked or perched facet. Intervertebral disc spaces and vertebral body heightsare preserved. Very minimal posterior osteophytes and canal narrowing posterior to the C6 level. OTHER BONES: No acute abnormality. CERVICAL SOFT TISSUES AND LUNG APICES: Normal soft tissues. Visualized lung apices are clear. IMPRESSION: No acute abnormality of the head or cervical spine. Findings were communicated by Cortext by Dr. Niyah Castro to Julio Blackwood MD on 06/09/2023 at 3:10 AM . I have personally reviewed the images and I agree with this report. WSN: [id number] Ordering Physician: Julio Blackwood Dictated By: Niyah Castro DO Dictated Date/Time: 06/09/23 7:12 am Reviewed By: Beth Aguilar MD Signed By: Beth Aguilar MD Signed Date/Time: 06/09/23 7:17 am Transcribed By: JAMES Transcribed Date/Time: 06/09/23 3:11 am * Exam Date Time Procedure Performing Provider Status 06/09/23 2:[address] Head/Brain W/O Contrast Stupak , Ol eg; Auth (Verified) Notes: (CT Head/Brain W/O Contrast) Reason For Exam: Other: RESULT: CT Head/Brain W/O Contrast CT Head/Brain W/O Contrast, CT Cervical Spine W/O Contrast INDICATION: Infarction; Fall with loss of consciousness TECHNIQUE: Noncontrast head CT using axial technique was reconstructed in axial and coronal planes.Noncontrast spiral CT through the cervical spine was formatted in 3 planes. Automatic tube modulation was used for the cervical spine and iterative dose reconstruction was used for both the head and cervical spine to optimize scan parameters and image quality. CTDIvol Body: 12.50 mGy, DLP Body: 329 mGy*cm. CTDIvol Head: 39.90 mGy, DLP Head: 671 mGy*cm. COMPARISON: Multiple priors most recently 01/20/2023. FINDINGS: [place] Findings, Lines and Tubes: None. BRAIN AND EXTRA-AXIAL SPACES: No parenchymal hemorrhage, midline shift, or mass effect. Ugarte-white matter differentiation is wellpreserved. No acute infarct. Ventricles, sulci, and basilar cisterns are normal. No white matter lesions. No subarachnoid hemorrhage. No subdural or epidural collection. CALVARIUM, SKULL BASE, AND SOFT TISSUES: No fractures or suspicious bony lesions. The paranasal sinuses and mastoid air cells are clear. Visualized orbits and globes are intact. The extracranial soft tissues are unremarkable. CERVICAL SPINE: No fracture. No acute osseous abnormalities. Normal alignment. No locked or perched facet. Intervertebral disc spaces and vertebral body heightsare preserved. Very minimal posterior osteophytes and canal narrowing posterior to the C6 level. OTHER BONES: No acute abnormality. CERVICAL SOFT TISSUES AND LUNG APICES: Normal soft tissues. Visualized lung apices are clear. IMPRESSION: No acute abnormality of the head or cervical spine. Findings were communicated by Cortext by Dr. Niyah Castro to Julio Blackwood MD on 06/09/2023 at 3:10 AM . I have personally reviewed the images and I agree with this report. WSN: [id number] Ordering Physician: Julio Blackwood Dictated By: Niyah Castro DO Dictated Date/Time: 06/09/23 7:12 am Reviewed By: Beth Aguilar MD Signed By: Beth Aguilar MD Signed Date/Time: 06/09/23 7:17 am Transcribed By: JAMES Transcribed Date/Time: 06/09/23 3:11 am Vital Signs Most recent to oldest [Reference Range]: 1 2 3 Height 160 cm (06/11/23 8:04 PM) 160 cm (06/11/23 4:18 AM) 160 cm (06/10/23 11:37 PM) Weight 71.0 kg (06/09/23 1:08 PM) Oxygen Saturation [94-100 %] 100 % (06/12/23 8:00 AM) 100 % (06/12/23 4:00 AM) 100 % (06/11/23 11:00 PM) Pulse Rate [55-90 bpm] 70 bpm (06/12/23 8:00 AM) 61 bpm (06/12/23 4:00 AM) 71 bpm (06/11/23 11:00 PM) Body Mass Index [18.5-24.99 kg/m2] 27.73 kg/m2 *H* (06/09/23 1:08 PM) Blood Pressure [90-138/55-84 mm Hg] 113/82mm Hg (06/12/23 8:00 AM) 115/65mm Hg (06/11/23 11:00 PM) Systolic Blood Pressure [90-138 mm Hg] 112 mm Hg (06/12/23 4:00 AM) Diastolic Blood Pressure [55-84 mm Hg] 73 mm Hg (06/12/23 4:00 AM) Respiratory Rate [16-30 br/min] 14 br/min *L* (06/12/23 8:00 AM) 20 br/min (06/12/23 4:00 AM) 20 br/min (06/11/23 11:00 PM) Temperature [96.8-100.4 DegF] 98.2 DegF (06/12/23 8:00 AM) 97.7 DegF (06/12/23 4:00 AM) 97.9 DegF (06/11/23 11:00 PM) Mode of Delivery (Oxygen) Room air (06/12/23 8:00 AM) Room air (06/12/23 4:00 AM) Room air (06/11/23 11:00 PM) Blood pressure sites Arm, left (06/12/23 8:00 AM) Arm, right (06/12/23 4:00 AM) Arm, right (06/11/23 11:00 PM) Temperature Route Oral (06/12/23 8:00 AM) Oral (06/12/23 4:00 AM) Oral (06/11/23 11:00 PM) Dry Weight 71.0 kg (06/09/23 1:08 PM) Social History Social History Type Response Smoking Status Never (less than 100 in lifetime) entered on: 01/25/23 Sex Admission evaluation note * Julio Blackwood MD: MODIFY, MODIFY, MODIFY, PERFORM, MODIFY Event Display: Admission Note Authored Date: [id number] Patient: ??ALLYSSA TIMMONS ? Age:??32 Years?Sex:??Female?:??1990?? Chief Complaint/Reason for Consultation Alcohol withdrawal History of Present Illness Allyssa is a 33-year-old woman with medical history of alcohol use disorder, alcohol withdrawal seizures and depression who presents to the emergency department with alcohol withdrawal symptoms and possible withdrawal seizure. History obtained mostly from chart review and after talking to her family. Per family the patient has been drinking alcohol heavily for the past week and recently she had a witnessed seizure that it is thought to be attributed to alcohol withdrawal but her mother states that she has not stopped drinking alcohol. For the past week Allyssa has been telling her family and boyfriend that she wants to . She has a medical history of prior suicide attempts requiring APTU hospitalizations. Her mother is concerned as she states that Allyssa has a severe depression. She has had 2 section 35 treatments. Her mother told me that at the moment she is not taking any medications,they're??unsure when she??stopped taking her meds. She has had to hide her medications in the past as she combines them with alcohol.??At the time of my evaluation, Allyssa is lethargic and difficult to arouse. Unable to obtain ROS. RN informed me that before I saw her she was more interactive but became somnolent after she was given Ativan. ?? ED course: On arrival to the emergency department she was noted to be afebrile, slightly tachycardic with heart rate of 102 bpm, blood pressure of 121/99 mmHg and had an oxygen saturation of 98% on room air.?? A CBC showed hemoconcentration with hemoglobin of 15.7 and hematocrit of 49.4%, no leukocytosis and platelet count within reference range.?? Basic metabolic panel showed a normal sodium and potassium,hypochloremia of 95, a high anion gap of 17 with normal bicarbonate of 24, creatinine within reference range.?? Lactate elevated at 3.3.?? test was negative.?? Ethanol serum was elevated at360.?? The ED she received folic acid, 50 mg of hydroxyzine, multivitamins, 260 mg of phenobarbitalx2, and thiamine.?? She also received a total of 3 mg of IV lorazepam, Zofran and IV fluids. Review of Systems Unable to obtain given current clinical status. Objective Vital Signs?? Temperature: 98.5 DegF (06/08/23 20:37:00) Temperature Route: Oral (06/08/23 20:37:00) Pulse Rate:??92 bpm??High (06/08/23 20:37:00) Respiratory Rate: 19 br/min (06/08/23 20:37:00) Systolic Blood Pressure: 117 mm Hg (06/08/23 20:37:00) Diastolic Blood Pressure: 71 mm Hg (06/08/23 20:37:00) Blood pressure sites: Arm, right (06/08/23 20:37:00) Mean Arterial Pressure: 101 mm Hg (06/08/23 14:16:00) Pulse Pressure: 46 mm Hg (06/08/23 20:37:00) Oxygen Saturation: 97 % (06/08/23 20:37:00) Mode of Delivery (Oxygen): Room air (06/08/23 20:37:00) Early Warning Score: 0 (06/08/23 20:38:14) ? Physical Exam Constitutional:?? in no acute??distress. Mental Status: Oriented to person, place and time. Head: Atraumatic/Normocephalic. Eyes: Pupils are equal, round and reactive to light. Extraocular muscles intact. Ear, Nose and Throat: Oropharynx clear, mucous membranes moist. Ears and nose without masses, lesions or deformities. Neck: Supple, Full range of motion. Respiratory: Clear to auscultation. No wheezing, rales or rhonchi. Cardiovascular: S1 S2 regular. No murmurs, rubs or gallops. Extremities: No peripheral edema. Gastrointestinal: Abdomen soft, non-tender, non-distended. Normal bowel sounds. No pulsatile mass. No hepatosplenomegaly. Genitourinary: No costovertebral angle tenderness. Neurologic: Cranial nerves II-XII grossly intact. No focal neurological deficits. Flexor plantar response. Moves all extremities spontaneously. Sensation intact bilaterally. Skin: No rashes or lesions. No petechiae or purpura.?? Musculoskeletal: No cyanosis or clubbing. No gross deformities. Normal range of motion. Psychiatric: Normal mood and affect Assessment/Plan Assessment:??Allyssa is a 33-year-old woman with medical history of alcohol use disorder, alcohol withdrawal seizures and depression who presents to the emergency department with alcohol withdrawal symptoms and possible withdrawal seizure witnessed by her stepfather. ? Alcohol withdrawal Alcohol use disorder History of alcohol withdrawal seizures Patient's family report that she had a fall with loss of consciousness. Has been heavily drinking alcohol for the past week. ?? Plan: - Will order a CT scan of neck, head and brain without contrast. - [facility] benzodiazepine protocol - Continue telemetry. - Lorazepam 2 mg as needed for??seizure activity. - Will consult neurology to evaluate her seizures. -??Consult addiction medicine. - NeuroChecks every 4 h. ? Suicidal ideation Depression Patient as had previous suicide attempts. Has required APTU hospitalizations and had 2 section 35 mandated treatments. - Psych consult. - Suicide precautions. 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 - At??the moment will??defer restarting her medications to the psych team. - [facility] protocol as above. ?? Elevated lactate Polycythemia Likely in setting of dehydration secondary to heavy alcohol use. - Will continue IV fluid hydration. - Continue to trend lactate.? Transaminitis Mild, in setting of alcohol use. - Will continue to monitor. ? Quality Measures: Diet:??Regular DVT prophylaxis:??Tanvir score is 0, no indication of chemical or mechanical PDVT ppx at the moment.If prolonged hospitalization consider starting DVT ppx. Code Status:??Full. ?Patient case and plan discussed with ??Jd. ?Julio Blackwood MD ?Internal Medicine PGY-2 Histories Allergies Allergies ?(Active and Proposed Allergies Only) No Known Medication Allergies? (Severity: Unknown severity, Onset: Unknown) NKA? (Severity: Unknown severity, Onset: Unknown) ? Past Medical History/Problem List Active Problems??(3) anxiety GERD without esophagitis PCOS (polycystic ovarian syndrome) ? Past Surgical History Unable to??obtain information. ? Social History Alcohol Details:??Use: Current. ??Frequency: Daily. Substance Abuse Details:??Use: pt refuses to discuss. Tobacco Details:??Use: Never (less than 100 in lifetime). ? Family History Unable to obtain information. ? Medications Home Medications BusPIRone (busPIRone 15 mg oral tablet)?1?tab(s)?15?Milligram?By Mouth?2 times a day Folic Acid (folic acid 1 mg oral tablet)?1?Milligram?1?tablet?By Mouth?Daily HydrOXYzine (hydrOXYzine pamoate 50 mg oral capsule)?1?capsule?50?Milligram?By Mouth?2 times a day?as needed?Anxiety Melatonin (melatonin 3 mg oral tablet)?1?tab(s)?3?Milligram?By Mouth?Daily at bedtime Multivitamin (Multivitamin Tablet)?1?tab(s)?By Mouth?Daily Naltrexone (naltrexone 380 mg intramuscular injection, extended release)?380?Milligram?Intramuscular?Every 28 days?next due on 05/02/23 Ocular Lubricant?Eyes, Both?Every 4 hours?as needed?Other?Dryness. Prazosin (prazosin 1 mg oral capsule)?3?Milligram?3?capsule?By Mouth?Daily at bedtime Pyridoxine (pyridoxine 50 mg oral tablet)?50?Milligram?1?tablet?By Mouth?Daily Sertraline (sertraline 100 mg oral tablet)?1?tab(s)?100?Milligram?By Mouth?Daily Trazodone (traZODone 100 mg oral tablet)?100?Milligram?1?tablet?By Mouth?Daily atbedtime ? Inpatient Medications Medications (13) Active SCHEDULED: (5) Folic Acid 1 mg Tablet (Folic Acid Tablet) ??1 mg, By Mouth, Daily Multivitamin Tablet ??1 tablet, By Mouth, Daily NaCl 0.9% Flush 3ml (NaCL 0.9% Flush) ??3 mL, IV Push, Every 8 hours Pyridoxine 50 mg Tablet (Pyridoxine Tablet) ??50 mg, By Mouth, Daily Thiamine 100 mg Tablet (Thiamine Tablet) ??100 mg, By Mouth, 2 times a day CONTINUOUS: (1) Lactated Ringers (1000 mL) Cont IV 1,000 mL (LR 1,000 mL) ??1,000 mL, IV Infusion, 75 mL/hr PRN: (7) Acetaminophen 325 mg Tablet (Acetaminophen Tablet) ??650 mg, By Mouth, Every 4 hours Lorazepam 2 mg Inj Syringe (Ativan Inj) ??1 mg, IV Push Slowly, Every 2 hours Lorazepam 2 mg Inj Syringe (Ativan Inj) ??2 mg, IV Push Slowly, Every 2 hours Lorazepam 2 mg Inj Syringe (Ativan Inj) ??2 mg, IV Push Slowly, Every hour Melatonin 3 mg Tablet (Melatonin Tablet) ??3 mg, By Mouth, Daily at bedtime NaCl 0.9% Flush 3ml (NaCL 0.9% Flush) ??3 mL, IV Push, Every 8 hours Ondansetron 2mg/mL Inj (2mL Vial) (Zofran Inj) ??4 mg, IV Push, Every 6 hours ? Results Recent Labs BLOOD COUNT & DIFF WBC 10.2 k/mm3 ()?? 06/08/2023 12:40 RBC 6.16 m/mm3 (High)?? 06/08/2023 12:40 Hgb 15.7 Gm/dL (High)?? 06/08/2023 12:40 Hct 49.4 % (High)?? 06/08/2023 12:40 MCV 80.2 femtoliters ()?? 06/08/2023 12:40 MCH 25.5 pg (Low)?? 06/08/2023 12:40 MCHC 31.8 g/dL (Low)?? 06/08/2023 12:40 Platelet Count 226 k/mm3 ()?? 06/08/2023 12:40 RDW-SD 44.4 femtoliters ()?? 06/08/2023 12:40 MPV 9.9 femtoliters ()?? 06/08/2023 12:40 Nucleated RBC (Automated) 0.0 #/100 WBC'S ()?? 06/08/2023 12:40 Abs. NRBC 0.0 k/mm3 ()?? 06/08/2023 12:40 Abs. Neut 7.6 k/mm3 (High)?? 06/08/2023 12:40 Abs. Lymph 2.0 k/mm3 ()?? 06/08/2023 12:40 Abs. Ballard 0.4 k/mm3 ()?? 06/08/2023 12:40 Abs. Eo 0.1 k/mm3 ()?? 06/08/2023 12:40 Abs. Baso 0.1 k/mm3 ()?? 06/08/2023 12:40 Neut % 74.9 % ()?? 06/08/2023 12:40 Lymph % 19.5 % ()?? 06/08/2023 12:40 Ballard % 3.7 % (Low)?? 06/08/2023 12:40 Eos % 0.8 % ()?? 06/08/2023 12:40 Baso % 0.7 % ()?? 06/08/2023 12:40 Imm Gran 0.4 % ()?? 06/08/2023 12:40 Abs. Imm Gran 0.0 k/mm3 ()?? 06/08/2023 12:40 ?? CHEM GENERAL Sodium 136 mmol/L ()?? 06/08/2023 12:40 Potassium 4.5 mmol/L ()?? 06/08/2023 12:40 Chloride 95 mmol/L (Low)?? 06/08/2023 12:40 Bicarbonate Level 24 mmol/L ()?? 06/08/2023 12:40 Anion Gap 17 ()?? 06/08/2023 12:40 Glucose Level 76 mg/dL ()?? 06/08/2023 12:40 BUN 5 mg/dL (Low)?? 06/08/2023 12:40 Creatinine-Blood 0.6 mg/dL ()?? 06/08/2023 12:40 Estimated GFR Creatinine 122 ML/MIN/1.73 M2 ()?? 06/08/2023 12:40 Calcium 9.2 mg/dL ()?? 06/08/2023 12:40 Phosphorus 3.6 mg/dL ()?? 06/08/2023 12:40 Magnesium 1.9 mg/dL ()?? 06/08/2023 12:40 Lactate 3.3 mmol/L (High)?? 06/08/2023 12:40 ?? ENDOCRINE/TUMOR MARKER Serum Qual NEGATIVE mIU/mL ()?? 06/08/2023 12:40 ?? TOXICOLOGY/TDM Ethanol, Serum or Plasma 360 mg/dL (Abnormal)?? 06/08/2023 12:40 ?? VIROLOGY COVID-19 by RT-PCR NEGATIVE ()?? 06/08/2023 18:00 ? Abnormal Labs ?? BLOOD COUNT & DIFF ??Abs. Imm Gran ??0.0 k/mm3 () ??06/08/2023 12:40 ??Abs. NRBC ??0.0 k/mm3 () ??06/08/2023 12:40 ??Abs. Neut ??7.6 k/mm3 (High) ??06/08/2023 12:40 ??Hct ??49.4 % (High) ??06/08/2023 12:40 ??Hgb ??15.7 Gm/dL (High) ??06/08/2023 12:40 ??Imm Gran ??0.4 % () ??06/08/2023 12:40 ??MCH ??25.5 pg (Low) ??06/08/2023 12:40 ??MCHC ??31.8 g/dL (Low) ??06/08/2023 12:40 ??Ballard % ??3.7 % (Low) ??06/08/2023 12:40 ??Nucleated RBC (Automated) ??0.0 #/100 WBC'S () ??06/08/2023 12:40 ??RBC ??6.16 m/mm3 (High) ??06/08/2023 12:40 ??RDW-SD ??44.4 femtoliters () ??06/08/2023 12:40 ? CHEM GENERAL ??BUN ??5 mg/dL (Low) ??06/08/2023 12:40 ??Chloride ??95 mmol/L (Low) ??06/08/2023 12:40 ??Estimated GFR Creatinine ??122 ML/MIN/1.73 M2 () ??06/08/2023 12:40 ??Lactate ??3.3 mmol/L (High) ??06/08/2023 12:40 ? ENDOCRINE/TUMOR MARKER ?? Serum Qual ??NEGATIVE mIU/mL () ??06/08/2023 12:40 ? TOXICOLOGY/TDM ??Ethanol, Serum or Plasma ??360 mg/dL (Abnormal) ??06/08/2023 12:40 ? VIROLOGY ??COVID-19 by RT-PCR ??NEGATIVE () ??06/08/2023 18:00 ? Note: Critical results are displayed in red. ? Urinalysis?? No qualifying data available. ?? * Juanito Miles MD: PERFORM Event Display: Admission Note Authored Date: [id number] Attending Attestation: I have seen and evaluated this patient. ?? I have discussed the case and its management with the resident and agree with the findings and gail documented in the resident's note. ??I will continue to provide care to this patient till 7 AM of the admitting date. ?32-year-old with a past medical history of anxiety, GERD, polycystic ovarian syndrome, alcohol abuse came with a complaint of alcohol intoxication. ??He was trying to cut down alcohol withdrawal but had a withdrawal seizure. ??He does have a heavy history of alcohol intake. ??Lab work-up showed hem concentrated blood with slightly high lactate level. ??Alcohol level was 360. ??COVID-19 negative. ?? negative. ??During my examination she was very sleepy, lethargic but easily arousable. ??She had a fall in the ED. ??CT scan of the head/neck is negative but official boarding pending. ??No spine tenderness on examination with no obvious sign of trauma to head. ??She is admitted for alcohol withdrawal. ??She got hydroxyzine, folic acid, MVI, thiamine and phenobarbitone. ??We will continue with the CIWA score, thiamine, folic acid and will continue Ativan foralcohol withdrawal. ??He wants to quit alcohol. ??We will have addiction medicine consult. 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 ??She cannot sign AMA. ??We will get a psychiatry consultation because of suicidal thoughts that she was making to her family. EKG study * Event Display: ECG 12-Lead Authored Date: Please click on pdf link to open report * Event Display: ECG 12-Lead Authored Date: Ventricular Rate: 106 BPM Atrial Rate: 106 BPM P-R Interval: 162 ms QRS Duration: 88 ms Q-T Interval: 366 ms QTC Calculation(Bazett): 486 ms P Lom[place]: 65 degrees R Lom[place]: -26 degrees T Lom[place]: 53 degrees Sinus tachycardia Otherwise normal ECG When compared with ECG of 08-JUN-2023 16:52, No significant change Confirmed by DADA MELENDEZ ([id number]) on 06/11/2023 1:14:57 PM Abbot: DADA MELENDEZ * Event Display: ECG 12-Lead Authored Date: Please click on pdf link to open report * Event Display: ECG 12-Lead Authored Date: Ventricular Rate: 99 BPM Atrial Rate: 99 BPM P-R Interval: 148 ms QRS Duration: 88 ms Q-T Interval: 360 ms QTC Calculation(Bazett): 462 ms P Lometa: 60 degrees R Lometa: -31 degrees T Lometa: 52 degrees Normal sinus rhythm Left axis deviation Cannot rule out Anterior infarct , age undetermined Abnormal ECG When compared with ECG of 08-JUN-2023 12:49, No significant change Confirmed by DADA MELENDEZ ([id number]) on 06/09/2023 8:44:00 AM Abbot: DADA MELENDZE * Event Display: ECG 12-Lead Authored Date: [id number] Please click on pdf link to open report * Event Display: ECG 12-Lead Authored Date: Ventricular Rate: 98 BPM Atrial Rate: 98 BPM P-R Interval: 154 ms QRS Duration: 90 ms Q-T Interval: 376 ms QTC Calculation(Bazett): 480 ms P Lometa: 62 degrees R Lometa: -28 degrees T Lometa: 41 degrees Normal sinus rhythm Normal ECG When compared with ECG of 30-MAR-2023 05:12, No significant change was found Confirmed by DADA MELENDEZ ([id number]) on 06/09/2023 8:43:34 AM Abbot: DADA MELENDEZ Cardiology * Event Display: Cardiac Rhythm Strips Authored Date: Hospital Progress note * Tara Paredes RN: VERIFY, PERFORM, SIGN Event Display: Progress Note Hospital Authored Date: Patient: ALLYSSA TIMMONS Age: 32 years Sex: Female : 1990 Associated Diagnoses: None Author: Tara Paredes RN Findings Problem Related to Alteration in Neurological : Alteration in Neurological Function/new 06/12/2023 11:00 EDT Alteration in Neuro status Related to Other: etoh withdrawal Goals & Outcomes, Neurological Lab studies/diagnostic tests within pt specific limits, Pt is safe with transfers & activities, Pt will be discharged without infection, Pt will be hemodynamically stable, Pt will be Neurologically stable, Pt will become pain free with appropriate intervention, Pt will maintain intact skin integrity, Pt will remain free from injury, Pt will resume/maintain ad equate cardiac output, Pt will state importance of adhering to medication regime, Pt/caregiver willreceive psychosocial support as needed, Pt/caregiver will state understanding of rehab plan, Resolved problem, Goals/Outcomes met Interventions, Neurological Teach pt/caregiver discharge plan & follow up care BH Goals/Interventions, Neurological Yes Neurological, Problem Start 06/09/2023 13:53 Reviewed plan with, Neurological Patient Patient Progression, Neurological Resolved problem Neurological, Problem Resolved 06/12/2023 11:03 . Nursing Data Cardiac Data. : Cardiac Data. 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 Gastrointestinal Data. : Gastrointestinal Data. 06/12/2023 10:45 EDT Abdomen Soft, Non-tender, Round Bowel Sounds LUQ Present Bowel Sounds RUQ Present Bowel Sounds LLQ Present Bowel Sounds RLQ Present Last Bowel Movement 06/12/2023 GI WNL except . Genitourinary Data. : Genitourinary Data. 06/12/2023 10:45 EDT WNL . Integumentary Data. : Integumentary Data. 06/12/2023 10:45 EDT Sensory Perception No impairment Sensory Perception No impairment Moisture Rarely moist Activity Walks frequently Mobility No limitations Nutrition Excellent Friction and Shear No apparent problem Martell Score 23 Nursing Care Plan initiated/updated Not applicable Integumentary WNL . Musculoskeletal Data. : Musculoskeletal Data. 06/12/2023 10:45 EDT Musculoskeletal WNL . Neurological Data. : Neurological Data. 06/12/2023 10:45 EDT Neurological Symptoms None Level of Consciousness Full Consciousness Orientated to person, place, time Person, Place, Time, Event Gait Steady Neuro WNL except Memory Intact . Respiratory/Pulmonary Data. : Respiratory/Pulmonary Data. 06/12/2023 10:45 EDT Respiratory Symptoms None Respiratory effort Unlabored Chest expansion Symmetrical Respiratory pattern Regular Left Upper Lobe Breath Sounds Clear Right Upper Lobe Breath Sounds Clear Right Middle Lobe Breath Sounds Clear Left Lower Lobe Breath Sounds Clear Right Lower Lobe Breath Sounds Clear Respiratory distress None Respiratory Treatment(s) Cough and deep breathe Respiratory WNL except . Vital Signs : VITAL SIGNS SECTION 06/12/2023 8:00 EDT Temperature 98.2 DegF Temperature Route Oral Pulse Rate 70 bpm Respiratory Rate 14 br/min L Systolic Blood Pressure 113 mm Hg Diastolic Blood Pressure 82 mm Hg Blood pressure sites Arm, left Pulse Pressure 31 mm Hg Oxygen Saturation 100 % Mode of Delivery (Oxygen) Room air . Narrative/Incidental Patient alert and oriented x4 anxious this morning. CIWA score 4 for moderate anxiousness. PRN Hydroxyzine administered. VSS. project planner showing SR then discontinued. Patient originally agreeable to staying till tomorrow due to active withdrawal symptoms over night but patient states she will not be able to get in her mothers house tomorrow so wanted to leave today. MD Ana Luisa Saxena made aware and discharge instructions reviewed with patient. IV removed with catheter tip intact. Patient left unit with all belongings at 1115. . Discharge Information Case Management Discharge Plan : Case Management Discharge Plan Data 06/12/2023 11:15 EDT Discharge Level of Care at Discharge Home/Nursing Home/Foster Care * Carie Hudson RN: SIGN, VERIFY, PERFORM Event Display: Progress Note Hospital Authored Date: [id number] Patient: ALLYSSA TIMMONS Age: 32 years Sex: Female : 1990 Associated Diagnoses: None Author: Carie Hudson RN Findings Problem Related to Alteration in Neurological : Alteration in Neurological Function/new 06/12/2023 4:00 EDT Alteration in Neuro status Related to Other: etoh withdrawal Goals & Outcomes, Neurological Lab studies/diagnostic tests within pt specific limits, Pt is safe with transfers & activities, Pt will be discharged without infection, Pt will be hemodynamically stable, Pt will be Neurologically stable, Pt will become pain free with appropriate intervention, Pt will maintain intact skin integrity, Pt will remain free from injury, Pt will resume/maintain ad equate cardiac output, Pt will state importance of adhering to medication regime, Pt/caregiver willreceive psychosocial support as needed, Pt/caregiver will state understanding of rehab plan Interventions, Neurological Assess/monitor for abnormal posturing, Assess/monitor neurologic status, Assess/monitor VS per unit standards & prn, Call/Report variances in assessments to provider, Document & Monitor O2 Sats; Administer O2 as ordered, Keep patient's head & body in good alignment, Maintain HOB at least 30 deg, Maintain normothermia, report temp >101.5 F, Monitor Fluid & Electrolytes, Serum Osmolarity, Monitor for headaches, nausea, vomiting, Monitor speech fluency, aphasia, word finding difficulty, Physical assessment per unit standards, Provide emotional support to Pt/caregiver Goals/Interventions, Neurological Yes Neurological, Problem Start 06/09/2023 13:53 Reviewed plan with, Neurological Patient Patient Progression, Neurological Pt progressing according to plan . Nursing Data Vital Signs : VITAL SIGNS SECTION 06/12/2023 4:00 EDT Temperature 97.7 DegF Temperature Route Oral Pulse Rate 61 bpm (Modified) Respiratory Rate 20 br/min Systolic Blood Pressure 112 mm Hg (Modified) Diastolic Blood Pressure 73 mm Hg (Modified) Blood pressure sites Arm, right Pulse Pressure 39 mm Hg (Modified) Oxygen Saturation 100 % Mode of Delivery (Oxygen) Room air 06/11/2023 23:00 EDT Temperature 97.9 DegF Temperature Route Oral Pulse Rate 71 bpm Respiratory Rate 20 br/min Systolic Blood Pressure 115 mm Hg Diastolic Blood Pressure 65 mm Hg Blood pressure sites Arm, right Pulse Pressure 50 mm Hg Oxygen Saturation 100 % Mode of Delivery (Oxygen) Room air 06/11/2023 20:04 EDT Temperature 99.6 DegF Temperature Route Oral Pulse Rate 83 bpm Respiratory Rate 18 br/min Systolic Blood Pressure 123 mm Hg Diastolic Blood Pressure 90 mm Hg H Blood pressure sites Arm, right Mean Arterial Pressure 101 mm Hg Pulse Pressure 33 mm Hg Oxygen Saturation 100 % Mode of Delivery (Oxygen) Room air . Evaluation Assumed care @1900. Pt is A&Ox4, independent in the room and runs NSR on telemetry. LS clear onRA, SOB denied and VSS. LR infusing continuously @75 mL/hr overnight. Pt stated wanting to go home tomorrow and didn't want any Ativan; @0200 pt began having visual delusions, vomiting, and moderate/severe anxiety. Education/support provided and pt stated wanting Ativan to help with her symptoms. PRN Zofran & 2 mg of Ativan given for a CIWA score of 13. When reassessed 2 hrs later she was calm/resting in bed. Hourly checks completed, call carranza in reach, bed in lowest position and environment assessed for safety. See [facility] for more information. * Ana Luisa WARD, Laura Adkins: PERFORM Event Display: Progress Note Hospital Authored Date: [id number] Patient: ??TIMMONS, ALLYSSA ? Age:??32 Years?Sex:??Female?:??1990?? Subjective Seen and examined today Anxious Reported CIWA earlier 11 ?? Review of Systems Constitutional: No fever or chills. ENT: No sore throat or nasal congestion. Respiratory: No shortness of breath or cough??. Cardiovascular: No chest pain or??palpitation. Gastrointestinal: No nausea, vomiting or diarrhea. Skin: No rash or lesion Neurology: No speech problem no vision problem no focal weakness, no dizziness. Psychiatric: Cooperative, normal mood and affect Objective ?? Physical Exam Awake, alert, oriented Lungs: Clear to auscultation bilateral, no wheezing no rales Heart: Regular rate and rhythm, no murmur, no rub or gallop Abdomen: Soft, nontender, nondistended; Bowel sounds present Extremity: No edema cyanosis clubbing Neurological: No focal deficit Psychiatric: Normal mood and affect Assessment/Plan Assessment:? 33 y/o female with h/o??alcohol use disorder, alcohol withdrawal seizures and depression who presents to the emergency department with alcohol withdrawal symptoms and possible withdrawal seizure witnessed by her stepfather. ? Alcohol withdrawal Alcohol use disorder History of alcohol withdrawal seizures Patient's family report that she had a fall with loss of consciousness. Has been heavily drinking alcohol for the past week. CT scan of neck, head and brain without contrast negative Addiction med consulted; Patient??refused any help ?? No seizure in hospital [facility] at 9.00 am recorded as 12; when I saw later, I felt it was 0 But given his last alcohol on 06/08 with high level, assume withdrawal is not there??yet, impending ?? Plan: - [facility] benzodiazepine protocol - Continue telemetry. - Lorazepam 2 mg as needed for seizure activity. ? Suicidal ideation Depression Patient as had previous suicide attempts. Has required [facility]TU hospitalizations and had 2 section 35 mandated treatments. - Psych consult requested - Suicide precautions. 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 - At the moment will defer restarting her medications to the psych team. - [facility] protocol as above. ?? Elevated lactate Polycythemia Likely in setting of dehydration secondary to heavy alcohol use. - Will continue IV fluid hydration. - Continue to trend lactate. ?? Lactate normalized ? R Transaminitis Mild, in setting of alcohol use. - Will continue to monitor. ? Diet: Regular ?? DVT prophylaxis: Tanvir score is 0, no indication of chemical or mechanical PDVT ppx at the moment. If prolonged hospitalization consider starting DVT ppx. ?? Code Status: Full. ?? Discharge Planning:? Consult note * Deedee Castro: PERFORM, SIGN, VERIFY Event Display: Consultation Note Authored Date: [id number] Patient: ALLYSSA TIMMONS Age: 32 years Sex: Female : 1990 Associated Diagnoses: None Author: Deedee Castro Addiction consult request placed for ETOH use. Pt is known to the addiction service. personnel coordinator met with pt this morning, at which time she expressed that she did not have any interest in starting any medication for ETOH, and no interest in pursuing any particular resources to help with her ETOH use. If pt changes her mind, feel free to reach out to us next week. Can continue with CIWA + PRN ativan. Would recommend to d/c CIWA score after 5 days of hospitalization (less sensitive after this point). If withdrawal escalates and it does not seem that ativan is properly addressing symptoms, can try scheduling diazepam 5-10mg PO or IV TID, tapering as tolerated. Updated Dr Orosco via [address] Addiction service will sign off. * Vivian Faustin MD: PERFORM Vivian Faustin MD: PERFORM, MODIFY Vivian Faustin MD: MODIFY, MODIFY, MODIFY, MODIFY, MODIFY, MODIFY, MODIFY [place] , [place]: MODIFY, MODIFY [place] , [place]: MODIFY, MODIFY [place] , [place]: MODIFY, MODIFY [place] , [place]: MODIFY, MODIFY [place] , [place]: MODIFY, MODIFY [place] , [place]: MODIFY, MODIFY [place] , [place]: MODIFY, MODIFY [place] , [place]: MODIFY, MODIFY [place] , [place]: MODIFY, MODIFY [place] , [place]: MODIFY, MODIFY [place] , [place]: MODIFY Event Display: Consultation Note Authored Date: [id number] Patient: ??ALLYSSA TIMMONS ? Age:??32 Years?Sex:??Female?:??1990?? Chief Complaint/Reason for Consultation acute alcohol withdrawal Psychiatry consulted for suicidal ideation and concerns for suicidal attempt, hx of suicidal attempts Referring Provider: Julio Blackwood MD Consulting psychiatrist:??Vivian Faustin MD Sources of information:??[facility], patient, mother History of Present Illness Patient is a 33-year-old female with??past medical history of alcohol use disorder, alcohol withdrawal seizures, depression, and hx of 2 prior section 35 treatments who presents to the emergency department with alcohol withdrawal symptoms and possible withdrawal seizure. Per family the patient has been drinking alcohol heavily for the past week and recently had a witnessed seizure thought to be??due to alcohol withdrawal. For the past week patient has reportedly been telling family and boyfriend that she wants to and has a history of prior suicide attempts requiring [facility]TU hospitalizations.Patient's mother is concerned and states that Allyssa has severe depression. Upon presentation in the ED??patient is??afebrile, slightly tachycardic with heart rate of 102 bpm, blood pressure of 121/99 mmHg and oxygen saturation of 98% on room air. CBC shows hemoconcentration with hemoglobin of 15.7and hematocrit of 49.4%, no leukocytosis and platelet count??wnl. BMP??shows hypochloremia of 95, high anion gap of 17 with normal bicarb and elevated lactate at 3.3.?? test was negative.??Ethanol serum was elevated at 360 at time of arrival.?In ED she received folic acid, 50 mg of hydroxyzine, multivitamins, 260 mg of phenobarbital x2, and thiamine.?? She also received a total of 3mg of IV lorazepam, Zofran and IV fluids. Psychiatry was consulted for suicidal ideation and concerns for possible suicide attempt secondary to history of several past attempts. ?? Upon approach by psychiatry consult services, patient was sleeping in ED with 1:1 sitter in no acute cardiopulmonary distress.??Once awake she was cooperative and agreeable to interview with psychiatry. She feels weak but does not??believe she is in withdrawal anymore. Patient explains that she came to the ED for withdrawal symptoms (shaking + seizures) after relapsing with alcohol. Patient states she has experienced similar withdrawal symptoms before and was last in treatment for her alcohol use disorder within the last year. She reports drinking all day every day (mostly beer) and says that alcohol is abundant and readily accessible where she lives. Denies any other substance use besides marijuana. Her longest period of sobriety from alcohol has been 2 months and she credits the gym and spiritual guidance for helping her achieve this. ?? Patient has lifelong history of anxiety and depression, sating?? I have always been depressed, eversince I was little but has learned to??live with it and manage it the best she can. She reports taking Zoloft, BuSpar, and Trazodone for anxiety/depression but they do not seem to be helping much. Depressive symptoms are positive for difficulty with sleep, sadness, and decreased appetite. She lastsaw her outpatient??therapist 2 weeks ago and reports this is helpful for her. Patient denies any current SI and states the last time she felt that way was back in January. Patient also denies any pastsuicide attempts, despite what is reported in her chart. She states, I want help. That's why I came here. I want to live. If I wanted to , don't you think I would have drank myself to at home instead of coming here? Patient states that she feels safe enough for discharge and denies having any access to firearms in the house or other means or harming herself. ?? Patient expresses interest in obtaining a new recovery collector. Reports having one in the past but it didn't work out. She is not interested in MAT or inpatient rehab at this time, stating she tried these options in the past and they did not work for her. She also says she would be open to adjusting her psych meds to help with her depression. ?? Consent was obtained to speak with patient's mother, who had expressed concerns about SI. Mother clarified that patient only makes such statements or attempts suicide while she is intoxicated; when she is sober, she is very logical and level headed. Mother reports that patient went to different hospital last Monday for unrelated issue which resulted in a psych hospitalization following evaluation by the crisis. Patient began drinking again once she was discharged. Patient currently lives withher mom and has been out of work since before the pandemic. Mom has no idea where daughter gets themoney to buy alcohol. Mom also reports that patient has not been taking her psych meds because she locked them up and will only allow daughter access to them if she is not drinking. Patient does still attend therapy but has been known to miss her appointments if she??has been drinking. ?? Past Psychiatric History?? Previous diagnoses: depression, anxiety Past hospitalizations:??unnamed hospital as recently as this past Monday Medication trials:??buspirone, hydroxyzine, sertraline, trazodone Past outpatient providers: [facility] Past suicide attempts: yes multiple ?? Family Psychiatric History Past diagnoses: alcohol use disorder Suicide attempts: Denies ?? Social History?? Patient is currently living with mother. She does not work and has been out of work since before the pandemic. Mother does not know where patient gets money to continue buying alcohol. History of multiple [facility]TU admissions for suicide attempts and multiple section 35's. ?? Substance Use History?? Patient reports drinking beer all day every day from the time she gets up until she goes to sleep. Also admits to marijuana use but denies any other substance use. Review of Systems Depression: poor sleep, low mood, decreased appetite, denies SI/HI ?? Anahi: denies ?? Psychosis: denies ?? Anxiety: reports Hydroxyzine helps calm her down ?? Suicidality/Homicidality: denies ?? Medical ROS:??A full ROS was completed and was negative with the exception of weakness and the pertinent positives noted in the history of the presenting illness. Objective Vital Signs?? Temperature: 98.3 DegF (06/09/23 06:44:00) Temperature Route: Oral (06/09/23 06:44:00) Pulse Rate: 70 bpm (06/09/23 09:55:00) Respiratory Rate: 17 br/min (06/09/23 09:55:00) Systolic Blood Pressure: 122 mm Hg (06/09/23 09:55:00) Diastolic Blood Pressure:??87 mm Hg??High (06/09/23 09:55:00) Blood pressure sites: Arm, right (06/09/23 09:55:00) Mean Arterial Pressure: 99 mm Hg (06/09/23 09:55:00) Pulse Pressure: 35 mm Hg (06/09/23 09:55:00) Oxygen Saturation: 98 % (06/09/23 09:55:00) Mode of Delivery (Oxygen): Room air (06/09/23 09:55:00) Early Warning Score: 0 (06/09/23 09:55:52) ?? Physical Exam Mental Status Exam ?Appearance: This is a female sitting in hospital bed dressed in hospital gown with 1:1 sitter.??Eye contact is appropriate ?Attitude: cooperative with pleasant demeanor,??answers questions but is often vague ?Motor activity: calm; devoid of tics, tremors, psychomotor agitation, psychomotor slowing ?Mood:?? I want help, that's why I came here. I want to live ?Affect:??somewhat flat?Speech: normal rate, normal tone and normal prosody ?Perception: no impairment and does not appear preoccupied or responding to internal stimuli?Orientation: intact ?Memory: intact. ?Thought process: Linear, logical, and coherent ?Thought content:??No delusions or abnormal thought content elicited or reported ?Compliance:??good per patient, but chart reports medication nonadherence ?Reliability:??good ?Suicidality/self-destructive behavior:??denies ?Homicidality/violence: none?Insight:??good ?Judgment: poor MSK Exam:?Patient is not seen ambulating, but able to move all four extremities spontaneously. No rigidity noted Assessment/Plan Patient is a 33-year-old female with??longstanding alcohol use disorder, alcohol withdrawal seizures, depression, and 2 past section 35 treatments who presented to the ED for acute alcohol withdrawal??and witnessed??seizure. Patient has been drinking heavily for the past week and made suicidal statements to family and boyfriend while intoxicated. Family worried due to patient's history of past graham cide attempts, most notably several APTU hospitalizations. Patient being managed for acute alcohol withdrawal??with [facility] protocol. Psychiatry was consulted due to??SI statements made to family??whileintoxicated prior to admission. ?? When interviewed, patient endorses weakness but states her withdrawal symptoms have since resolved.She recently relapsed and has been drinking nonstop for the past week. History of multiple unsuccessful treatment attempts. Denies any other substance use aside from marijuana. Patient also reports lifelong history of depression +sleep disturbances, +low mood, +decreased appetite.??Current medications include??Zoloft, BuSpar, and Trazodone but does not feel they are helping. She denies current SIand asserts that she wants help for her alcohol use disorder. Collateral info obtained from mom clarified that patient only makes SI statements or attempts while intoxicated and never when sober. Patient does not currently have access to psych meds and has not been taking them because mom locked them up when she started drinking again due to concern of OD. ?? Patient denies current SI and feels safe enough for discharge. She is not interested in MAT, counselor, or inpatient rehab at this time but is open to getting a new recovery collector. Efforts made by family to monitor medication usage are appreciated but might suggest administering medication daily topatient in order to ensure good compliance and maximum therapeutic benefit. At this time patient does not meet the criteria for involuntary??inpatient psychiatric hospitalization and is cleared for discharge from a psychiatric perspective. Prognosis for patient is dependent on her ability to maintain sobriety and remain adherent with treatment. ?? DSM- 5 Diagnoses: Unspecified depressive disorder (r/o persistent depressive disorder vs substance-induced mood disorder) Alcohol use disorder; severe Acute alcohol withdrawal ?? Medical Problems: GERD without esophagitis PCOS ?? Recommendations: -Patient does not meet criteria for inpatient psychiatric hospitalization at this time -No acute safety concerns. Can discontinue 1:1. She is cleared from psychiatric perspective for discharge -Restart Sertraline 50 mg, continue on hydroxyzine PRN for anxiety (patient had been prescribed taking sertraline 100mg daily however unclear adherence; can increase dose to 100mg in the hospital after a few days) -Continue with folic acid and multivitamins for nutritional supplementation??due to decreased appetite -Suggest family administer medications??daily to??help with medication adherence and achieve maximum therapeutic benefit - Addiction medicine coordinator to help provide patient with resources to find recovery collector ?? Greater than??110 minutes spent on this consult including review of patient???s chart, examination of the patient, writing chart notes, and communicating with health hospice care consultant and/or??the patient???s family. ?? Histories Allergies Allergies ?(Active and Proposed Allergies Only) No Known Medication Allergies? (Severity: Unknown severity, Onset: Unknown) NKA? (Severity: Unknown severity, Onset: Unknown) ? Past Medical History/Problem List Active Problems??(3) anxiety GERD without esophagitis PCOS (polycystic ovarian syndrome) ?? Past Surgical History No surgery history documented. ?? Social History Alcohol Details:??Use: Current. ??Frequency: Daily. Substance Abuse Details:??Use: pt refuses to discuss. Tobacco Details:??Use: Never (less than 100 in lifetime). ?? Family History No family history recorded Medications Home Medications BusPIRone (busPIRone 15 mg oral tablet)?1?tab(s)?15?Milligram?By Mouth?2 times a day Folic Acid (folic acid 1 mg oral tablet)?1?Milligram?1?tablet?By Mouth?Daily HydrOXYzine (hydrOXYzine pamoate 50 mg oral capsule)?1?capsule?50?Milligram?By Mouth?2 times a day?as needed?Anxiety Melatonin (melatonin 3 mg oral tablet)?1?tab(s)?3?Milligram?By Mouth?Daily at bedtime Multivitamin (Multivitamin Tablet)?1?tab(s)?By Mouth?Daily Naltrexone (naltrexone 380 mg intramuscular injection, extended release)?380?Milligram?Intramuscular?Every 28 days?next due on 05/02/23 Ocular Lubricant?Eyes, Both?Every 4 hours?as needed?Other?Dryness. Prazosin (prazosin 1 mg oral capsule)?3?Milligram?3?capsule?By Mouth?Daily at bedtime Pyridoxine (pyridoxine 50 mg oral tablet)?50?Milligram?1?tablet?By Mouth?Daily Sertraline (sertraline 100 mg oral tablet)?1?tab(s)?100?Milligram?By Mouth?Daily Trazodone (traZODone 100 mg oral tablet)?100?Milligram?1?tablet?By Mouth?Daily atbedtime ? Inpatient Medications Medications (15) Active SCHEDULED: (5) Folic Acid 1 mg Tablet (Folic Acid Tablet) ??1 mg, By Mouth, Daily Multivitamin Tablet ??1 tablet, By Mouth, Daily NaCl 0.9% Flush 3ml (NaCL 0.9% Flush) ??3 mL, IV Push, Every 8 hours Pyridoxine 50 mg Tablet (Pyridoxine Tablet) ??50 mg, By Mouth, Daily Thiamine 100 mg Tablet (Thiamine Tablet) ??100 mg, By Mouth, 2 times a day CONTINUOUS: (1) Lactated Ringers (1000 mL) Cont IV 1,000 mL (LR 1,000 mL) ??1,000 mL, IV Infusion, 75 mL/hr PRN: (9) Acetaminophen 325 mg Tablet (Acetaminophen Tablet) ??650 mg, By Mouth, Every 4 hours HydrOXYzine Pamoate 25mg Capsule (hydrOXYzine pamoate 25 mg oral capsule) ??50 mg, By Mouth, 2 times a day Lorazepam 2 mg Inj Syringe (Ativan Inj) ??1 mg, IV Push Slowly, Every 2 hours Lorazepam 2 mg Inj Syringe (Ativan Inj) ??2 mg, IV Push Slowly, Every 2 hours Lorazepam 2 mg Inj Syringe (Ativan Inj) ??2 mg, IV Push Slowly, Every hour Lorazepam 2 mg Inj Syringe (LORazepam Inj) ??2 mg, IV Push Slowly, Once Melatonin 3 mg Tablet (Melatonin Tablet) ??3 mg, By Mouth, Daily at bedtime NaCl 0.9% Flush 3ml (NaCL 0.9% Flush) ??3 mL, IV Push, Every 8 hours Ondansetron 2mg/mL Inj (2mL Vial) (Zofran Inj) ??4 mg, IV Push, Every 6 hours ? Results Recent Labs BLOOD COUNT & DIFF WBC 8.0 k/mm3 ()?? 06/09/2023 02:12 RBC 4.81 m/mm3 ()?? 06/09/2023 02:12 Hgb 12.2 Gm/dL ()?? 06/09/2023 02:12 Hct 38.3 % ()?? 06/09/2023 02:12 MCV 79.6 femtoliters (Low)?? 06/09/2023 02:12 MCH 25.4 pg (Low)?? 06/09/2023 02:12 MCHC 31.9 g/dL (Low)?? 06/09/2023 02:12 Platelet Count 235 k/mm3 ()?? 06/09/2023 02:12 RDW-SD 43.9 femtoliters ()?? 06/09/2023 02:12 MPV 9.7 femtoliters ()?? 06/09/2023 02:12 Nucleated RBC (Automated) 0.0 #/100 WBC'S ()?? 06/09/2023 02:12 Abs. NRBC 0.0 k/mm3 ()?? 06/09/2023 02:12 Abs. Neut 7.6 k/mm3 (High)?? 06/08/2023 12:40 Abs. Lymph 2.0 k/mm3 ()?? 06/08/2023 12:40 Abs. Ballard 0.4 k/mm3 ()?? 06/08/2023 12:40 Abs. Eo 0.1 k/mm3 ()?? 06/08/2023 12:40 Abs. Baso 0.1 k/mm3 ()?? 06/08/2023 12:40 Neut % 74.9 % ()?? 06/08/2023 12:40 Lymph % 19.5 % ()?? 06/08/2023 12:40 Ballard % 3.7 % (Low)?? 06/08/2023 12:40 Eos % 0.8 % ()?? 06/08/2023 12:40 Baso % 0.7 % ()?? 06/08/2023 12:40 Imm Gran 0.4 % ()?? 06/08/2023 12:40 Abs. Imm Gran 0.0 k/mm3 ()?? 06/08/2023 12:40 ?? CHEM GENERAL Sodium 138 mmol/L ()?? 06/09/2023 02:12 Potassium 4.3 mmol/L ()?? 06/09/2023 02:12 Chloride 102 mmol/L ()?? 06/09/2023 02:12 Bicarbonate Level 23 mmol/L ()?? 06/09/2023 02:12 Anion Gap 13 ()?? 06/09/2023 02:12 Glucose Level 67 mg/dL (Low)?? 06/09/2023 02:12 BUN 8 mg/dL ()?? 06/09/2023 02:12 Creatinine-Blood 0.7 mg/dL ()?? 06/09/2023 02:12 Estimated GFR Creatinine 116 ML/MIN/1.73 M2 ()?? 06/09/2023 02:12 Calcium 8.8 mg/dL ()?? 06/09/2023 02:12 Phosphorus 3.6 mg/dL ()?? 06/08/2023 12:40 Magnesium 1.9 mg/dL ()?? 06/08/2023 12:40 Protein, Total 6.3 Gm/dL ()?? 06/09/2023 02:12 Albumin 3.8 Gm/dL ()?? 06/09/2023 02:12 AG Ratio 1.5 ()?? 06/09/2023 02:12 Alkaline Phosphatase 80 units/L ()?? 06/09/2023 02:12 AST (SGOT) 28 units/L ()?? 06/09/2023 02:12 ALT (SGPT) 26 units/L ()?? 06/09/2023 02:12 Bilirubin, Total 0.5 mg/dL ()?? 06/09/2023 02:12 Bilirubin, Direct <0.2 mg/dL ()?? 06/08/2023 12:40 Bilirubin, Indirect Direct bilirubin is less than the measureable limit. Therefore, indirect mg/dL ()?? 06/08/2023 12:40 Lactate 1.9 mmol/L ()?? 06/08/2023 21:12 ?? ENDOCRINE/TUMOR MARKER Serum Qual NEGATIVE mIU/mL ()?? 06/08/2023 12:40 ?? TOXICOLOGY/TDM Ethanol, Serum or Plasma 360 mg/dL (Abnormal)?? 06/08/2023 12:40 ?? VIROLOGY COVID-19 by RT-PCR NEGATIVE ()?? 06/08/2023 18:00 ? CBC, CBC w/Diff?? CBC?? Differential?? WBC: 8 k/mm3 (02:12) Abs. Neut:??7.6 k/mm3??High (12:40) RBC: 4.81 m/mm3 (02:12) Abs. Lymph: 2 k/mm3 (12:40) Hct: 38.3 % (02:12) Abs. Ballard: 0.4 k/mm3 (12:40) RDW-SD: 43.9 femtoliters (02:12) Abs. Eo: 0.1 k/mm3 (12:40) Nucleated RBC (Automated): 0 #/100 WBC'S (02:12) Abs. Baso: 0.1 k/mm3 (12:40) Abs. NRBC: 0 k/mm3 (02:12) Neut %: 74.9 % (12:40) ?? Lymph %: 19.5 % (12:40) ?? Ballard %:??3.7 %??Low (12:40) ?? Eos %: 0.8 % (12:40) ?? Baso %: 0.7 % (12:40) ?? Imm Gran: 0.4 % (12:40) ?? Abs. Imm Gran: 0 k/mm3 (12:40) ? BMP, Mg, and Phos Anion Gap: 13 (02:12) Bicarbonate Level: 23 mmol/L (02:12) BUN: 8 mg/dL (02:12) Calcium: 8.8 mg/dL (02:12) Chloride: 102 mmol/L (02:12) Creatinine-Blood: 0.7 mg/dL (02:12) Estimated GFR Creatinine: 116 ML/MIN/1.73 M2 (02:12) Glucose Level:??67 mg/dL??Low (02:12) Magnesium: 1.9 mg/dL (12:40) Phosphorus: 3.6 mg/dL (12:40) Potassium: 4.3 mmol/L (02:12) Sodium: 138 mmol/L (02:12) ?? LFT Albumin: 3.8 Gm/dL (02:12) Alkaline Phosphatase: 80 units/L (02:12) ALT (SGPT): 26 units/L (02:12) AST (SGOT): 28 units/L (02:12) Bilirubin, Direct: <0.2 (12:40) Bilirubin, Indirect: Direct bilirubin is less than the measureable limit. Therefore, indirect (12:40) Bilirubin, Total: 0.5 mg/dL (02:12) ?? Urinalysis?? No qualifying data available. ?? * Treva Arboleda: MODIFY, SIGN, PERFORM, SIGN, VERIFY Event Display: Consultation Note Authored Date: Patient: ALLYSSA TIMMONS Age: 32 years Sex: Female : 1990 Associated Diagnoses: None Author: Treva Arboleda Met with patient this morning to discuss addiction resources. Patient declined all addiction resources such as, therapy, IOP, recovery coaching, MAT, and inpatient treatment programs. If patient decides she would like resources, I will meet with patient again to assist with resources. * Treva Arboleda: PERFORM Event Display: Consultation Note Authored Date: Patient is interested in a recovery collector in which a referral was submitted to [facility]. A recovery collector will reach out to the patient to set up an intake. Addiction Consultation Team [address] [place] [id number] Patient: Allyssa Timmons (: 1990) Date: 06/09/2023 A referral has been made to [facility] on your behalf. A staff member will notify you after discharge to schedule a day/time for an intake. Note * Tara Paredes RN: PERFORM Event Display: Discharge/Transfer Note Hospital Authored Date: [id number] Nursing Discharge Note Entered On: 06/12/2023 11:15 EDT Performed On: 06/12/2023 11:15 EDT by Tara Paredes RN Nursing Discharge Note 2 Discharge Time : 06/12/2023 11:15 EDT Discharge Level of Care at Discharge : Home/Nursing Home/Foster Care Patient Left Unit Via : Ambulatory Patient Accompanied Off Unit with : Responsible adult DC Instructions Provided & Signed by Pt : Yes Patient Understands D/C Instructions : Yes Patient Instructions Discharge Signed : Yes Did Pt have Specialty Bed or Wound Vac : No Tara Paredes RN - 06/12/2023 11:15 EDT * Laura Orosco MD: PERFORM Event Display: Discharge/Transfer Note Hospital Authored Date: [id number] Patient: ??TIMOMNS, ALLYSSA ? Age:??32 Years?Sex:??Female?:??1990?? Patient Information Discharge Location: Primary Care Physician: Mike Franks MD Admit Date/Time: 06/08/23 16:14 Discharge Disposition Discharge Disposition: ?? Discharge Diagnosis Alcohol withdrawal (F10.939) ?? _ Discharge Medications BusPIRone (busPIRone 15 mg oral tablet)?1?tab(s)?15?Milligram?By Mouth?2 times a day Folic Acid (folic acid 1 mg oral tablet)?1?Milligram?1?tablet?By Mouth?Daily HydrOXYzine (hydrOXYzine pamoate 50 mg oral capsule)?1?capsule?50?Milligram?By Mouth?2 times a day?as needed?Anxiety Melatonin (melatonin 3 mg oral tablet)?1?tab(s)?3?Milligram?By Mouth?Daily at bedtime Multivitamin (Multivitamin Tablet)?1?tab(s)?By Mouth?Daily Naltrexone (naltrexone 380 mg intramuscular injection, extended release)?380?Milligram?Intramuscular?Every 28 days?next due on 05/02/23 Ocular Lubricant?Eyes, Both?Every 4 hours?as needed?Other?Dryness. Prazosin (prazosin 1 mg oral capsule)?3?Milligram?3?capsule?By Mouth?Daily at bedtime Pyridoxine (pyridoxine 50 mg oral tablet)?50?Milligram?1?tablet?By Mouth?Daily Sertraline (sertraline 100 mg oral tablet)?1?tab(s)?100?Milligram?By Mouth?Daily Trazodone (traZODone 100 mg oral tablet)?100?Milligram?1?tablet?By Mouth?Daily atbedtime ? Allergies Allergies ?(Active and Proposed Allergies Only) No Known Medication Allergies? (Severity: Unknown severity, Onset: Unknown) NKA? (Severity: Unknown severity, Onset: Unknown) ? Hospital Course ??33 y/o female with h/o??alcohol use disorder, alcohol withdrawal seizures and depression who presents to the emergency department with alcohol withdrawal symptoms and possible withdrawal seizure witnessed by her stepfather. ? Alcohol withdrawal Alcohol use disorder History of alcohol withdrawal seizures Patient's family report that she had a fall with loss of consciousness. Has been heavily drinking alcohol for the past week. CT scan of neck, head and brain without contrast negative Addiction med consulted; Patient??refused any help ?? No seizure in hospital [facility] at 13 last night; but ) this am ?? In fact, I wanted to keep another day to val sure she is not withdrawing; but she wants to go home now ?? She is otherwise stable ?? Declined any services ?? She is bieng discharegd home in a stable condition ?? f/up with ?? Suicidal ideation Depression Resolved ?not suicidal any more psycitary cleared ? Elevated lactate Polycythemia Likely in setting of dehydration secondary to heavy alcohol use. - Will continue IV fluid hydration. - Continue to trend lactate. ?? Lactate normalized ? Transaminitis Mild, in setting of alcohol use. - ?? Diet: Regular ? Objective Assessment and Plan Assessment:? 33 y/o female with h/o??alcohol use disorder, alcohol withdrawal seizures and depression who presents to the emergency department with alcohol withdrawal symptoms and possible withdrawal seizure witnessed by her stepfather. ? Alcohol withdrawal Alcohol use disorder History of alcohol withdrawal seizures Patient's family report that she had a fall with loss of consciousness. Has been heavily drinking alcohol for the past week. CT scan of neck, head and brain without contrast negative Addiction med consulted; Patient??refused any help ?? No seizure in hospital [facility] at 9.00 am recorded as 12; when I saw later, I felt it was 0 But given his last alcohol on 06/08 with high level, assume withdrawal is not there??yet, impending ?? Plan: - [facility] benzodiazepine protocol - Continue telemetry. - Lorazepam 2 mg as needed for seizure activity. ? Suicidal ideation Depression Patient as had previous suicide attempts. Has required APTU hospitalizations and had 2 section 35 mandated treatments. - Psych consult requested - Suicide precautions. 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 - At the moment will defer restarting her medications to the psych team. - [facility] protocol as above. ?? Elevated lactate Polycythemia Likely in setting of dehydration secondary to heavy alcohol use. - Will continue IV fluid hydration. - Continue to trend lactate. ?? Lactate normalized ? R Transaminitis Mild, in setting of alcohol use. - Will continue to monitor. ? Diet: Regular ?? DVT prophylaxis: Tanvir score is 0, no indication of chemical or mechanical PDVT ppx at the moment. If prolonged hospitalization consider starting DVT ppx. ?? Code Status: Full. ?? Discharge Planning:? Vital Signs?? Temperature: 98.2 DegF (06/12/23 08:00:00) Temperature Route: Oral (06/12/23 08:00:00) Pulse Rate: 70 bpm (06/12/23 08:00:00) Respiratory Rate:??14 br/min??Low (06/12/23 08:00:00) Systolic Blood Pressure: 113 mm Hg (06/12/23 08:00:00) Diastolic Blood Pressure: 82 mm Hg (06/12/23 08:00:00) Blood pressure sites: Arm, left (06/12/23 08:00:00) Mean Arterial Pressure: 101 mm Hg (06/11/23 20:04:00) Pulse Pressure: 31 mm Hg (06/12/23 08:00:00) Oxygen Saturation: 100 % (06/12/23 08:00:00) Mode of Delivery (Oxygen): Room air (06/12/23 08:00:00) Early Warning Score: 0 (06/12/23 08:36:00) ? . Physical Exam Awake, alert, oriented Lungs: Clear to auscultation bilateral, no wheezing no rales Heart: Regular rate and rhythm, no murmur, no rub or gallop Abdomen: Soft, nontender, nondistended; Bowel sounds present Extremity: No edema cyanosis clubbing Neurological: No focal deficit Psychiatric: Normal mood and affect Pending Results Add On Lab Order ordered on 06/08/2023 Follow-Up Appointments Added Follow Up ?Time Frame ?Comments Mike Franks MD?1 week Mike Franks MD Post Discharge Care Discharge ?06/12/23 11:04:00 EDT Discharge Prescriptions ?None, ??06/12/23 11:04:00 EDT Home Health Face to Face ^[facility] Results Discharge Labs BLOOD COUNT & DIFF WBC 6.6 k/mm3 ()?? 06/10/2023 02:39 RBC 5.03 m/mm3 ()?? 06/10/2023 02:39 Hgb 12.9 Gm/dL ()?? 06/10/2023 02:39 Hct 39.8 % ()?? 06/10/2023 02:39 MCV 79.1 femtoliters (Low)?? 06/10/2023 02:39 MCH 25.6 pg (Low)?? 06/10/2023 02:39 MCHC 32.4 g/dL (Low)?? 06/10/2023 02:39 Platelet Count 221 k/mm3 ()?? 06/10/2023 02:39 RDW-SD 42.8 femtoliters ()?? 06/10/2023 02:39 MPV 9.8 femtoliters ()?? 06/10/2023 02:39 Nucleated RBC (Automated) 0.0 #/100 WBC'S ()?? 06/10/2023 02:39 Abs. NRBC 0.0 k/mm3 ()?? 06/10/2023 02:39 Abs. Neut 4.7 k/mm3 ()?? 06/10/2023 02:39 Abs. Lymph 1.4 k/mm3 ()?? 06/10/2023 02:39 Abs. Ballard 0.4 k/mm3 ()?? 06/10/2023 02:39 Abs. Eo 0.1 k/mm3 ()?? 06/10/2023 02:39 Abs. Baso 0.0 k/mm3 ()?? 06/10/2023 02:39 Neut % 71.4 % ()?? 06/10/2023 02:39 Lymph % 21.5 % ()?? 06/10/2023 02:39 Ballard % 5.3 % ()?? 06/10/2023 02:39 Eos % 0.9 % ()?? 06/10/2023 02:39 Baso % 0.6 % ()?? 06/10/2023 02:39 Imm Gran 0.3 % ()?? 06/10/2023 02:39 Abs. Imm Gran 0.0 k/mm3 ()?? 06/10/2023 02:39 ?? CHEM GENERAL Sodium 132 mmol/L (Low)?? 06/10/2023 02:39 Potassium 3.8 mmol/L ()?? 06/10/2023 02:39 Chloride 98 mmol/L ()?? 06/10/2023 02:39 Bicarbonate Level 25 mmol/L ()?? 06/10/2023 02:39 Anion Gap 9 ()?? 06/10/2023 02:39 Glucose Level 70 mg/dL ()?? 06/10/2023 02:39 BUN 7 mg/dL ()?? 06/10/2023 02:39 Creatinine-Blood 0.6 mg/dL ()?? 06/10/2023 02:39 Estimated GFR Creatinine 124 ML/MIN/1.73 M2 ()?? 06/10/2023 02:39 Calcium 8.8 mg/dL ()?? 06/09/2023 02:12 Phosphorus 3.6 mg/dL ()?? 06/08/2023 12:40 Magnesium 1.7 mg/dL ()?? 06/10/2023 02:39 Protein, Total 6.3 Gm/dL ()?? 06/09/2023 02:12 Albumin 3.8 Gm/dL ()?? 06/09/2023 02:12 AG Ratio 1.5 ()?? 06/09/2023 02:12 Alkaline Phosphatase 80 units/L ()?? 06/09/2023 02:12 AST (SGOT) 28 units/L ()?? 06/09/2023 02:12 ALT (SGPT) 26 units/L ()?? 06/09/2023 02:12 Bilirubin, Total 0.5 mg/dL ()?? 06/09/2023 02:12 Bilirubin, Direct <0.2 mg/dL ()?? 06/08/2023 12:40 Bilirubin, Indirect Direct bilirubin is less than the measureable limit. Therefore, indirect mg/dL ()?? 06/08/2023 12:40 Lactate 1.9 mmol/L ()?? 06/08/2023 21:12 ?? ENDOCRINE/TUMOR MARKER Serum Qual NEGATIVE mIU/mL ()?? 06/08/2023 12:40 ? TOXICOLOGY/TDM Ethanol, Serum or Plasma 360 mg/dL (Abnormal)?? 06/08/2023 12:40 ? URINE OTHER Est Creatinine Clearance 111.31 mL/min ()?? 06/10/2023 04:05 ? VIROLOGY COVID-19 by RT-PCR NEGATIVE ()?? 06/08/2023 18:00 ? Microbiology ?? COVID-19 (Novel Coronavirus), Rapid PCR?? Completed?? Source: Nasal Body Site: Nose Collected Dt/Tm: 06/08/2023 16:14 Last Updated Dt/Tm: 06/08/2023 19:00 ? 35 minutes spent on discharge * Tara Paredes RN: PERFORM Event Display: Patient Education/Instruction Authored Date: [id number] Inpatient Adult Discharge Instructions [place] [id number] Name: ALLYSSA TIMMONS : 1990 Visit: 06/08/2023 16:14:00 Current Date: 06/12/2023 11:05 Account: [id number] Inpatient Adult Discharge Instructions We would like to thank you for allowing us to assist you with your healthcare needs. The following includes patient education materials and information regarding your injury/illness. Our entire staffstrives to provide an excellent experience for our patients and their families. PLEASE ENSURE YOU FOLLOW-UP PER THE INSTRUCTIONS BELOW! ?? YOUR OPINION IS IMPORTANT TO US! Please complete the survey you may receive by mail or email. Your feedback will be used to make improvements to the healthcare experiences of our patients and their families. Surveys are administered by [employer] ?? If further treatment with your primary care physician or another doctor is recommended, it is important for you to keep the appointment. Call your primary care physician or return to the Emergency Department immediately if your condition worsens, fails to improve, or new symptoms develop. If you need to find a doctor, you can call [facility] [employer] Link for a referral at [phone] or toll free at [phone]) or log in to [email or web address].. ?? You can view and manage your care through the patient portal or by using a health care brisa of your choosing. [employer] is a website that allows you to securely view your medical information including your hospital discharge summary, office visit summaries, medications and follow-up visits. You can also request appointments, renew medications, and request access to your medical information using a health care brisa of your choosing, or just ask a question. You can enroll at [email or web address] or register during your next office visit. You have been discharged from [facility], Patient Care Unit: W4. If you have any questions regarding these instructions after you leave, please call us and we will be happy to assist you. [facility] Your Care Team Attending Physician Laura Orosco MD Consulting Providers Mattie Faustin MD, MD, Sonia Discharging Providers Laura Orosco MD Reason for Admission Alcohol withdrawal Your Diagnosis Alcohol withdrawal Tests Performed Below is a partial list of the tests performed during your hospitalization. You may have had other tests and procedures not included in this list. Please discuss all test results with your provider. Alcohol Level Basic Metabolic Panel BUN CBC CBC w/ Differential Comprehensive Metabolic Panel COVID-19 (Novel Coronavirus), Rapid PCR Creatinine Electrolytes Glucose Level HEPATIC FUNCTION PANEL Lactate Level Magnesium Level Phosphorus Level Serum Qualitative CT Cervical Spine W/O Contrast CT Head/Brain W/O Contrast Primary Care Provider Mike Franks MD Advance Directive Health Care Proxy on File Yes - Health Care Proxy Discharge Vitals Temperature: 98.2 DegF Height: 160 cm Pulse Rate: 70 bpm Weight: 71 kg Respiratory Rate:??14 br/min??Low Body Mass Index:??27.73 kg/m2??High Systolic Blood Pressure: 113 mm Hg Body surface area: 1.78 Diastolic Blood Pressure: 82 mm Hg ?? Oxygen Saturation: 100 % ?? Studies Pending All tests and labs ordered during this hospital stay have been completed unless listed below. Please discuss all pending results with your provider listed above in these instructions. ?? Add On Lab Order What to do next Instructions From Your Doctor Discharge Orders You Need to Schedule the Following Appointments Follow Up with??Mike Franks MD When:??Within 1 week Where: [address] [place] [address]- Follow Up with??Mike Franks MD Where: [address] [place] [address]- Discharge Medications ALLYSSA TIMMONS :1990 Visit Date:06/08/2023 Medications: Please continue your medications until treatment is completed or stopped by your provider. Medications not listed below should be discontinued. Discuss any questions related to medications with your provider. What How Much When Instructions Next Dose Unchanged BusPIRone (busPIRone 15 mg oral tablet) 1 tab(s) Oral Twice a day Resume tonight 06/12 Unchanged Folic Acid (folic acid 1 mg oral tablet) 1 tab(s) Oral Daily Resume tomorrow morning 06/13 Unchanged HydrOXYzine (hydrOXYzine pamoate 50 mg oral capsule) 1 capsule Oral Twice a day as needed for Anxiety Resume tonight 06/12??as needed Unchanged Melatonin (melatonin 3 mg oral tablet) 1 tab(s) Oral Daily at Bedtime Resume tonight 06/12 Unchanged Multivitamin (Multivitamin Tablet) 1 tab(s) Oral Daily Resume tomorrow morning 06/13 Unchanged Naltrexone (naltrexone 380 mg intramuscular injection, extended release) 380 Milligram Intramuscular Every 28 days next due on ?? Resume Unchanged Ocular Lubricant Both eyes Every 4 hours as needed for Other Dryness. ?? Resume every four hours as needed Unchanged Prazosin (prazosin 1 mg oral capsule) 3 capsule Oral Daily at Bedtime Resume tonight 06/12 Unchanged Pyridoxine (pyridoxine 50 mg oral tablet) 1 tab(s) Oral Daily Resume tomorrow morning 06/13 Unchanged Sertraline (sertraline 100 mg oral tablet) 1 tab(s) Oral Daily Resume tomorrow morning 06/13 Unchanged Trazodone (traZODone 100 mg oral tablet) 1 tab(s) Oral Daily at Bedtime Resume tonight 06/12 Test Results Below is a partial list of the most recent Laboratory test results done prior to this discharge. You may have had other tests and procedures not included in this list. Please discuss all test resultswith your provider. Est Creatinine Clearance - 111.31 mL/min (06/10/2023) Alcohol Level (06/08/2023) ???Ethanol, Serum or Plasma - 360 mg/dL Basic Metabolic Panel (06/08/2023) ???Sodium - 136 mmol/L???Potassium - 4.5 mmol/L???Chloride - 95 mmol/L???Bicarbonate Level - 24 mmol/L???Anion Gap - 17???Glucose Level - 76 mg/dL???BUN - 5 mg/dL???Creatinine-Blood - 0.6 mg/dL???Estimated GFR Creatinine - 122 ML/MIN/1.73 M2???Calcium - 9.2 mg/dL BUN (06/10/2023) ???BUN - 7 mg/dL CBC (06/09/2023) ???WBC - 8.0 k/mm3???RBC - 4.81 m/mm3???Hgb - 12.2 Gm/dL???Hct - 38.3 %???MCV - 79.6 femtoliters???MCH - 25.4 pg???MCHC - 31.9 g/dL???Platelet Count - 235 k/mm3???RDW-SD - 43.9 femtoliters???MPV - 9.7 femtoliters???Nucleated RBC (Automated) - 0.0 #/100 WBC'S???Abs. NRBC - 0.0 k/mm3 CBC w/ Differential (06/10/2023) ???WBC - 6.6 k/mm3???RBC - 5.03 m/mm3???Hgb - 12.9 Gm/dL???Hct - 39.8 %???MCV - 79.1 femtoliters???MCH - 25.6 pg???MCHC - 32.4 g/dL???Platelet Count - 221 k/mm3???RDW-SD - 42.8 femtoliters???MPV - 9.8 femtoliters???Nucleated RBC (Automated) - 0.0 #/100 WBC'S???Abs. NRBC - 0.0 k/mm3???Abs. Neut - 4.7 k/mm3???Abs. Lymph - 1.4 k/mm3???Abs. Ballard - 0.4 k/mm3???Abs. Eo - 0.1 k/mm3???Abs. Baso - 0.0 k/mm3???Neut % - 71.4 %???Lymph % - 21.5 %???Ballard % - 5.3 %???Eos % - 0.9 %???Baso % - 0.6 %???Imm Gran- 0.3 %???Abs. Imm Gran - 0.0 k/mm3 Comprehensive Metabolic Panel (06/09/2023) ???Sodium - 138 mmol/L???Potassium - 4.3 mmol/L???Chloride - 102 mmol/L???Bicarbonate Level - 23 mmol/L???Anion Gap - 13???Glucose Level - 67 mg/dL???BUN - 8 mg/dL???Creatinine-Blood - 0.7 mg/dL???Estimated GFR Creatinine - 116 ML/MIN/1.73 M2???Calcium - 8.8 mg/dL???Protein, Total - 6.3 Gm/dL???Albu min - 3.8 Gm/dL???AG Ratio - 1.5???Alkaline Phosphatase - 80 units/L???AST (SGOT) - 28 units/L???ALT (SGPT) - 26 units/L???Bilirubin, Total - 0.5 mg/dL COVID-19 (Novel Coronavirus), Rapid PCR (06/08/2023) ???COVID-19 by RT-PCR - NEGATIVE Creatinine (06/10/2023) ???Creatinine-Blood - 0.6 mg/dL???Estimated GFR Creatinine - 124 ML/MIN/1.73 M2 Electrolytes (06/10/2023) ???Sodium - 132 mmol/L???Potassium - 3.8 mmol/L???Chloride - 98 mmol/L???Bicarbonate Level - 25 mmol/L???Anion Gap - 9 Glucose Level (06/10/2023) ???Glucose Level - 70 mg/dL HEPATIC FUNCTION PANEL (06/08/2023) ???Protein, Total - 8.0 Gm/dL???Albumin - 4.8 Gm/dL???Alkaline Phosphatase - 106 units/L???AST (SGOT) - 37 units/L? ?ALT (SGPT) - 34 units/L? ?Bilirubin, Total - 0.3 mg/dL? ?Bilirubin, Direct - <0.2 mg/dL???Bilirubin, Indirect - Direct bilirubin is less than the measureable limit. Therefore, indirect Lactate Level (06/08/2023) ???Lactate - 1.9 mmol/L Magnesium Level (06/10/2023) ???Magnesium - 1.7 mg/dL Phosphorus Level (06/08/2023) ???Phosphorus - 3.6 mg/dL Serum Qualitative (06/08/2023) ??? Serum Qual - NEGATIVE Allergies (NKA means No Known Allergies) NKA No Known Medication Allergies Problems Active Problems??(3) anxiety?? GERD without esophagitis?? PCOS (polycystic ovarian syndrome)?? Education Materials Below is the list of Educational Leaflet Providered with your Discharge Instructions. Alcohol Withdrawal: What to Expect?? Alcohol Withdrawal?? Valuables and Belongings I fully understand and agree that [facility] accepts no responsibility for all my personal property including clothing, toilet articles, radios, jewelry, dentures, hearing aids, rings, money, or any other property that is in my possession or is brought to me after admission. I understand certain valuables may be placed in a hospital safe for a short period of time. I understand that the hospital is not liable for loss or damage due to accident, fire, or other natural occurrence while said property is in the safe. I accept full responsibility for any personal property that I keep with me, and will not hold the hospital responsible in case of loss or disappearance. I acknowledge that i have been encouraged to send valuables and belongings home. ?? Review of Valuable and Belonging List: With patient, With witness Date for Pt to Sign Valuables/Belongings: 06/09/23 13:33:00 ?? Other Discharge Information ? Pulmonary Rehab Status?? Pulmonary Rehab Discharge Status?? Respiratory Rate:??14 br/min??Low ? Common Emergency Awareness Tips IS IT A STROKE? Act FAST and Check for these signs: FACE Does the face look uneven? ARM Does one arm drift down? SPEECH Does their speech sound strange? TIME Call at any sign of stroke ?? Heart Attack Signs Chest discomfort: Most heart attacks involve discomfort in the center of the chest and lasts more than a few minutes, or goes away and comes back. It can feel like uncomfortable pressure, squeezing, fullness or pain. Discomfort in upper body: Symptoms can include pain or discomfort in one or both arms, back, neck, jaw or stomach. Shortness of breath: With or without discomfort. Other signs: Breaking out in a cold sweat, nausea, or lightheaded. Remember, MINUTES DO MATTER. If you experience any of these heart attack warning signs, call to get immediate medical attention! ?? Smoking can increase your chances of developing chronic health problems and can cause harmful effects to other family members in your house. If you smoke, you are strongly encouraged to quit. Please call [facility] [employer] Link at [phone] or [phone] ([phone]) or log in to [email or web address] for referrals to smoking cessation programs. ?? 116 Suicide & Crisis Lifeline is available 12/06 if you or someone you know needs to find a reason to keep living. By calling 650 you'll be connected to a skilled, trained counselor at a crisis center in your area. INPATIENT DISCHARGE INSTRUCTIONS SIGNATURE PAGE ALLYSSA TIMMONS Location:[facility] Registration Date and Time:06/08/2023 16:14 EDT Primary Care Physician: Mike Franks MD, Attending Physician: Ana Luisa WARD, Laura Adkins, I TIMMONS, ALLYSSA, have received the above patient education materials/instructions and have verbalized understanding. If ambulance or transport services are being used I further acknowledge being given a choice of service. ?? If you need to contact me, please call me at this number: . Patient/Proofreader Name: Patient/Proofreader Signature: Relationship to Patient: Witness Name/Signature: Date: * Tara Paredes RN: PERFORM Event Display: Patient Education Leaflets Authored Date: [id number] Alcohol Withdrawal: What to Expect ?? 15359 Alcohol Withdrawal: What to Expect What is withdrawal? Withdrawal can occur if you???re a heavy drinker and stop drinking. The symptoms can be mild to severe. How bad they are depends on: ??? How much alcohol you drink ??? How long you've been drinking ??? If you have organ damage Withdrawal can start 6 to 24 hours after your last drink. It often eases after a few days.??It can be uncomfortable and unpleasant. But most people don???t have serious or life-threatening problems. Long-standing heavy drinkers can have bad symptoms. This can lead to seizures. It may be deadly if not treated right away. These people must be under medical care during withdrawal. ?? What symptoms will I have? Withdrawal symptoms can start when you stop drinking. Or if you cut back a lot on your drinking. Most people have mild symptoms, such as ??? Trouble sleeping ??? Headache ??? Vivid dreams ??? Irritability ??? Anxiety ??? Mild stomach problems ??? Tremors or ???the shakes? Sweating ??? Fast heartbeat ??? Higher blood pressure More severe symptoms (called delirium tremens, or DTs) are: ??? Fever ??? Hallucinations ??? Delusions ??? Confusion ??? Agitation ??? Seizures ?? Can I do this at home? How you manage alcohol withdrawal depends on your history. If you are a long- time, heavy drinker, have had a seizure during a previous alcohol withdrawal, or been told you had DTs on a past withdrawal, you will need close monitoring. You may be able to stay home while you go through withdrawal. Butyou need to talk with an expert to make this decision. Work closely with an application development specialist. Or talk with your healthcare provider. Based on your past drinking and withdrawal symptoms, your provider may be able to tell how bad your symptoms may be. If you are expected to have mild withdrawal, you may be able stay home. But you???ll need a caregiver to help you. You may also have daily visits and phone calls from a provider, such as a drug and alcohol nurse. Your provider may give you a type of sedating medicine. It may help keep withdrawal symptoms under control. They may also give you other medicines to ease headaches or nausea. Stay well-hydrated so your symptoms are less extreme. ?? What happens if I am in a hospital or rehab center? You may need to stay in a hospital or a treatment center if your provider thinks you may have bad withdrawal symptoms. Or if you have other health problems that can make withdrawal harder.??Medical staff can more closely watch you. They can also give you more medicine, if needed. This includes IV medicines, fluids, and vitamins. These may help reduce complications. Ask about a referral for long-te rm support for stopping or reducing drinking. ?? Last Reviewed Date: 2022 ?? [employer]. All rights reserved. This information is not intended as a substitute for professional medical care. Always follow your healthcare professional's instructions. ?? * Tara Paredes RN: PERFORM Event Display: Patient Education Leaflets Authored Date: [id number] Alcohol Withdrawal ?? [id number] Alcohol Withdrawal Alcohol withdrawal often starts after prolonged heavy drinking, and then you suddenly stop drinking. Or you cut down on your alcohol use. It is not one thing. It is a complex combination of signs andsymptoms that often occur together and define a certain problem or condition. ??? Alcohol withdrawal is potentially life-threatening. It is a medical emergency. ??? It can startas early as a couple of hours after your last drink. Or it may take 1 to 3 days to develop. ??? It can last from days to a week or more. ??? It can worsen very quickly. Signs and symptoms There are??several stages of alcohol withdrawal. But they overlap, as do their signs and symptoms. In the earlier stages, it most often includes: ??? Anxiety ??? Shakiness ??? Nausea and vomiting ???Sweating ??? Insomnia ??? Headaches ??? Fever ??? Mood swings, irritability, agitation, restlessness ?? Delirium tremens (DTs) DTs are a severe and life-threatening complication. If??DTs happen, they often start about 3 to 5 days after your last drink. They are potentially life threatening, so medical care should be sought. Symptoms of DTs include: ??? Sudden and severe mental or nervous system changes ??? Uncontrollable tremors ??? Severe disorientation, confusion, hallucinations ??? Heart racing, or irregular heartbeat??? High blood pressure ??? Seizures ??? Possible coma and ?? Home care ??? You'll need plenty of rest and fluids over the next several days. Eat regular meals and drink plenty of fluids to prevent dehydration. Don't drink any more alcohol. During this time, itis best that you're not alone. Stay with family or friends who can help and support you. You can also admit yourself to a residential detox program. ??? Don't drive until all symptoms are gone and you are feeling better. If you've had a seizure, don't drive until you've been examined by a healthcare provider. ??? If you were given sedative medicine to reduce your symptoms, don't take it more often than prescribed. Never take it with alcohol. ?? Follow-up care Once you've gone through the withdrawal symptoms, you've fought half of the jerome. To avoid the risk of going back to your past drinking pattern, it's vital that you get follow-up support and treatment. ??? Alcoholics Anonymous (AA) offers support through a self-help fellowship. There are no dues or fees. Search the internet or go to the AA website at www.aa.org to find a local meeting place. ??? [employer] offers support to families of alcohol users. Go to the Al-Anon website at www.al-anon.org . ??? Residential alcohol detox programs are available. Search the internet for treatment centers [facility]. ?? Call 911 Call 911 if any of these occur: ??? Seizure ??? Trouble breathing or slow, irregular breathing ??? Chest pain ??? Sudden weakness on a side of the body or sudden trouble speaking ??? Heavy bleeding or vomiting blood ??? Very drowsy or trouble awakening ??? Fainting or loss of consciousness ??? Rapid heart rate ?? When to get medical advice Call your healthcare provider right away??if any of these occur: ??? Severe shakiness ??? Hallucinations ??? Fever over 100.4?? F (38.0?? C) ??? Headache, confusion, extreme drowsiness, inability to awaken ??? Increasing upper abdominal pain ??? Repeated vomiting ?? Last Reviewed Date: 2021 ?? 4149-8193 [employer]. All rights reserved. This information is not intended as a substitute for professional medical care. Always follow your healthcare professional's instructions. ?? Patient Care team information Care Team Personnel Name: Radha Vasquez RN Position: [facility] RN Supv Member Role: Primary Care Nurse Name: Destiny Cortes RN Position: [facility] RN Member Role: Primary Care Nurse Name: Debbie Braun RN Position: [facility] RN Member Role: Primary Care Nurse Name: Mike Franks MD Position: [facility] Outreach Member Role: PCP Address: Address: [address] [place] [address] [place] [address]- Name: Liliam Zhang RN Position: [facility] RN Member Role: Primary Care Nurse Name: Lexi Rodriguez RN Position: [facility] RN Member Role: Primary Care Nurse Name: Jake RN, Christy Position: [facility] RN Member Role: Primary Care Nurse Name: Yanely Hollis RN Position: [facility] RN Member Role: Primary Care Nurse Name: Hiwot Yepez RN Position: [facility] RN Member Role: Primary Care Nurse Name: Jeri Simmons RN Position: [facility] RN Member Role: Primary Care Nurse Name: Kailey Valerio Position: [facility] RN Member Role: Primary Care Nurse Name: Gladys Ramirez MD Position: [facility] Physician - Endocrinology Member Role: Lifetime Consulting Physician Name: Lorena Pascual RN Position: [facility] RN Member Role: Primary Care Nurse Name: Surendra TRUJILLO, Sharon Position: [facility] RN Member Role: Primary Care Nurse Name: Elvi Olsen RN Position: [facility] RN Member Role: Primary Care Nurse Name: Keely Alcazar RN Position: [facility] RN Member Role: Primary Care Nurse Name: Norah Valdovinos RN Position: [facility] RN Supv Member Role: Primary Care Nurse Name: Liane Lee RN Position: [facility] RN Member Role: Primary Care Nurse Name: Nevin Rosenberg RN Position: [facility] RN Member Role: Primary Care Nurse Name: Suzette Goodrich RN Position: [facility] RN Member Role: Primary Care Nurse Name: Saskia Roach RN Position: [facility] RN Member Role: Primary Care Nurse Name: Carla Hdz RN Position: [facility] Bus Operator Member Role: Primary Care Nurse Name: Kelsey Murphy RN Position: [facility] RN Member Role: Primary Care Nurse Name: Joseph Murdock RN Position: [facility] RN Member Role: Primary Care Nurse Name: Lien Mckeon RN Position: [facility] RN Member Role: Primary Care Nurse Name: Rocío FOSTER Attending Position: [facility] ED Medicine MD Name: Keisha Alvarez Position: [facility] ED [facility] Member Role: Patient Care Provider Name: Margaret Sepulveda Position: [facility] ED [facility] Member Role: Forging Dies Final Finisher Name: Allegra Barillas RN Position: [facility] ED RN W/OE and Tasks Member Role: Patient Care Provider Care Team Related Persons Name: FIDEL TIMMONS Address: [address] [address] Name: NAYELI ARRIAGA
--- OUTSIDE RECORDS SUMMARY | 2023-08-02 17:23 | XMS_ITS | Continuity of Care Document ---
Author Name Unknown Organization [facility] ter Address [address] [place] [id number]- Care Team Providers Care Job Service Specialist Name Role Phone Mike Franks MD Primary Care Physician [phone] Encounter [facility] Date(s): 05/23/21 - 05/25/[address] [address]- Encounter Diagnosis Alcohol withdrawal(Final) - 05/23/21 Anxiety(Final) - 05/23/21 Discharge Disposition: A-D/C Home Attending Physician: Laura Orosco MD Admitting Physician: Seth Velasquez MD Referring Physician: Not on Staff, Referring MD Allergies, Adverse Reactions, Alerts Substance Reaction Severity Status NKA Active Medications folic acid 1 mg oral tablet 1 mg, 1, tablet, By Mouth, Daily, # 30 tablet, Refills 0, Tot. Refills 0, Maintenance, 01/28/21 13:19:00 EST, Route to Pharmacy Electronically, [facility], Partial fill upon patient request if the prescription is for a schedule II opioid... Start Date: 01/28/21 Status: Ordered multivitamin Vitamin B Complex oral tablet 1 tablet, By Mouth, Daily, # 30 tablet, 0 Refills, Maintenance, 01/28/21 13:19:00 EST, Tablet, [facility], Partial fill upon patient request if the prescription is for a schedule II opioid drug., 1 tablet By Mouth Daily,x30 days, 163, cm... Start Date: 01/28/21 Stop Date: 02/27/21 Status: Ordered pantoprazole 20 mg oral delayed release tablet = 20 mg, By Mouth, 2 times a day, # 30 tablet, 0 Refills, Maintenance, 01/28/21 13:39:00 EST, EC Tablet, 163, cm, 01/28/21 12:29:00 EST, Height, 72.2, kg, 01/27/21 5:15:00 EST, Dry Weight Start Date: 01/28/21 Stop Date: 02/27/21 Status: Ordered Zofran 4 mg oral tablet 1 tablet = 4 mg, By Mouth, Every 8 hours, PRN as needed for nausea/vomiting, # 12 tablet, 0 Refills, Maintenance, 02/26/21 4:06:00 EDT, Tablet, [id number], Partial fill upon patient request if the prescription is for a schedule II opioid drug.... Start Date: 02/26/21 Status: Ordered Problem List Condition Effective Dates Status Health Status Inform ant anxiety(Confirmed) Active Results Radiology Reports * Exam Date Time Procedure Performing Provider Status 05/23/21 12:48 PM Chest Portable Ekenbarger Chana (Verified) Notes: (Chest Portable) Reason For Exam: Shortness of Breath RESULT: Chest Portable Chest Portable Hx of Present Illness: Shortness of breath. COMPARISON: 08/03/2020 FINDINGS: LINES AND TUBES: None. LUNGS AND PLEURA: Clear lungs. Normal pulmonary vascularity. No pleural effusion. No pneumothorax. HEART, MEDIASTINUM AND CAMILA: Heart is normal in size. Normal upper mediastinal and hilar contour. BONES AND SOFT TISSUES: No acute abnormality. IMPRESSION: No acute abnormality. WSN: [id number] Ordering Physician: Abdi Johnson Dictated By: Rajiv Ferraro MD Dictated Date/Time: 05/23/21 1:04 pm Reviewed By: Rajiv Ferraro MD Signed By: Rajiv Ferraro MD Signed Date/Time: 05/23/21 1:04 pm Transcribed By: JAMES Transcribed Date/Time: 05/23/21 1:04 pm Vital Signs Most recent to oldest [Reference Range]: 1 2 3 Oxygen Saturation [94-100 %] 100 % (05/25/21 10:50 AM) 100 % (05/25/21 5:39 AM) 99 % (05/24/21 11:48 PM) Pulse Rate [55-90 bpm] 74 bpm (05/25/21 10:50 AM) 59 bpm (05/25/21 5:39 AM) 78 bpm (05/24/21 11:48 PM) Blood Pressure [90-138/55-84 mm Hg] 139/86mm Hg *H* (05/25/21 10:50 AM) 126/85mm Hg (05/25/21 5:39 AM) 120/85mm Hg (05/24/21 11:48 PM) Respiratory Rate [16-30 br/min] 18 br/min (05/25/21 10:50 AM) 18 br/min (05/25/21 5:39 AM) 18 br/min (05/24/21 11:48 PM) Temperature [96.8-100.4 DegF] 98.1 DegF (05/25/21 10:50 AM) 97.8 DegF (05/25/21 5:39 AM) 98.6 DegF (05/24/21 11:48 PM) Mode of Delivery (Oxygen) Room air (05/25/21 10:50 AM) Room air (05/25/21 5:39 AM) Room air (05/24/21 11:48 PM) Blood pressure sites Arm, left (05/25/21 10:50 AM) Arm, left (05/25/21 5:39 AM) Arm, right (05/24/21 11:48 PM) Temperature Route Oral (05/25/21 10:50 AM) Oral (05/25/21 5:39 AM) Oral (05/24/21 11:48 PM)
--- OUTSIDE RECORDS SUMMARY | 2023-08-02 17:23 | XMS_ITS | Continuity of Care Document ---
Author Name Unknown Organization [facility] [place] ter Address [address] [place] [id number]- Care Team Providers Care Licensed Dispensing Optician Name Role Phone Mike Franks MD Primary Care Physician Encounter [facility] Date(s): 07/01/23 - 07/02/[address] [address]- Discharge Disposition: A-D/C Walkout Attending Physician: Not on Staff, Attending MD Admitting Physician: Not on Staff, Admitting MD Referring Physician: Not on Staff, Referring MD Allergies, Adverse Reactions, Alerts No Known Allergies Medications escitalopram 5 mg oral tablet 1 tablet = 5 mg, By Mouth, Daily in AM Start Date: 06/24/23 Status: Ordered folic acid 1 mg oral tablet 1 mg, By Mouth, Daily, Refills 0, Maintenance, 06/26/23 11:27:00 EDT, Partial fill upon patient request if the prescription is for a schedule II opioid drug. Start Date: 06/26/23 Status: Ordered hydrOXYzine pamoate 50 mg oral capsule 1 capsule = 50 mg, By Mouth, 2 times a day, PRN Anxiety, # 60 capsule, 0 Refills, Maintenance, 04/05/23 8:19:00 EDT, Capsule, [id number], Partial fill upon patient request if the prescriptionis for a schedule II opioid drug., 160, cm, ... Start Date: 04/05/23 Status: Ordered moxifloxacin 0.5% ophthalmic solution 1 drops, Eyes, Both, 4 times a day, for 7 days, # 3 mL, 0 Refills, Acute 07/03/23 11:21:00 EDT, 06/26/23 11:21:00 EDT, Ophth Solution, [id number], Partial fill upon patient request if the prescription is for a schedule II opioid drug., 1 drops... Start Date: 06/26/23 Stop Date: 07/03/23 Status: Ordered multivitamin Multiple Vitamins oral tablet 1 tablet, By Mouth, Daily, # 30 tablet, 0 Refills, Maintenance, 06/26/23 11:20:00 EDT, Tablet, [id number], Partial fill upon patient request if the prescription is for a schedule II opioid drug., 1 tablet By Mouth Daily,x30 days, 161, cm, 080... Start Date: 06/26/23 Stop Date: 07/26/23 Status: Ordered naltrexone 50 mg oral tablet 1 tablet = 50 mg, By Mouth, Daily, # 30 tablet, 1 Refills, Maintenance, 06/26/23 11:23:00 EDT, Tablet, [id number], Partial fill upon patient request if the prescription is for a schedule II opioid drug., 161, cm, 06/26/23 7:04:00 EDT, Height,... Start Date: 06/26/23 Stop Date: 08/25/23 Status: Ordered thiamine 100 mg oral tablet 100 mg, By Mouth, 2 times a day, Refills 0, Maintenance, 06/26/23 11:27:00 EDT, Partial fill upon patient request if the prescription is for a schedule II opioid drug. Start Date: 06/26/23 Status: Ordered traZODone 100 mg oral tablet TAKE ONE AND ONE HALF (1.5) TABLETS BY MOUTH AT BEDTIME Start Date: 06/24/23 Status: Ordered Problem List Condition Confirmation Course Effective Dates Status Health St atus Informant anxiety Confirmed Active GERD without esophagitis Confirmed Active PCOS (polycystic ovarian syndrome) Confirmed Active Alcohol use disorder, severe, dependence Confirmed Active Severe recurrent major depression Confirmed Active Vital Signs Most recent to oldest [Reference Range]: 1 Oxygen Saturation [94-100 %] 99 % (07/02/23 12:13 AM) Pulse Rate [55-90 bpm] 131 bpm *H* (07/02/23 12:13 AM) Blood Pressure [90-138/55-84 mm Hg] 125/ 103mm Hg (07/02/23 12:13 AM) Respiratory Rate [16-30 br/min] 20 br/mi n (07/02/23 12:13 AM) Temperature [96.8-100.4 DegF] 99.7 DegF (07/02/23 12:13 AM) Mode of Delivery (Oxygen) Room air (07/02/23 12:13 AM) Blood pressure sites Arm, right (07/02/23 12:13 AM) Temperature Route Oral (07/02/23 12:13 AM) Social History Social History Type Response Smoking Status Never (less than 100 in lifetime) entered on: 01/25/23 Sex Patient Care team information Care Team Personnel Name: Radha Vasquez RN Position: [facility] RN Supv Member Role: Primary Care Nurse Name: Debbie Braun RN Position: [facility] SN RN Member Role: Primary Care Nurse Name: Cris Fonseca RN Position: [facility] RN Member Role: Primary Care Nurse Name: Mike Franks MD Position: [facility] Outreach Member Role: PCP Address: Address: [address] [place] [address] Lucille Franks [place], [place] [address] Name: Liliam Zhang RN Position: [facility] RN Member Role: Primary Care Nurse Name: Lexi Rodriguez RN Position: [facility] RN Member Role: Primary Care Nurse Name: Christy Joseph RN Position: [facility] RN Member Role: Primary Care Nurse Name: Yanely Hollis RN Position: [facility] RN Member Role: Primary Care Nurse Name: Hiwot Yepez RN Position: [facility] RN Member Role: Primary Care Nurse Name: Jeri Simmons RN Position: [facility] RN Member Role: Primary Care Nurse Name: Kailey Valerio Position: [facility] RN Member Role: Primary Care Nurse Name: Gladys Ramirez MD Position: [facility] Physician - Endocrinology Member Role: Lifetime Consulting Physician Name: Lorena Pascual RN Position: [facility] RN Member Role: Primary Care Nurse Name: Lashonda White RN Position: [facility] RN Member Role: Primary Care Nurse Name: Sharon Agosto LPN Position: [facility] RN Member Role: Primary Care Nurse Name: Elvi Olsen RN Position: [facility] RN Member Role: Primary Care Nurse Name: Keely Alcazar RN Position: [facility] RN Member Role: Primary Care Nurse Name: Joezf Saldana RN Position: [facility] RN Member Role: Primary Care Nurse Name: Norah Valdovinos RN Position: [facility] RN Supv Member Role: Primary Care Nurse Name: Liane Lee RN Position: [facility] RN Member Role: Primary Care Nurse Name: Nevin Rosenberg RN Position: [facility] RN Member Role: Primary Care Nurse Name: Joann Drummond RN Position: [facility] RN Member Role: Primary Care Nurse Name: Suzette Goodrich RN Position: [facility] RN Member Role: Primary Care Nurse Name: Saskia oRach RN Position: [facility] RN Member Role: Primary Care Nurse Name: Carla Hdz RN Position: [facility] Instrumentation Fitter Member Role: Primary Care Nurse Name: Kelsey Murphy RN Position: [facility] RN Member Role: Primary Care Nurse Name: Joseph Murdock RN Position: [facility] RN Member Role: Primary Care Nurse Name: Alejandra Justin Position: [facility] RN Member Role: Primary Care Nurse Name: Lien Mckeon RN Position: [facility] RN Member Role: Primary Care Nurse Care Team Related Persons Name: FIDEL BEAUCHAMP Address: [address] [address] Name: NAYELI ARRIAGA
--- OUTSIDE RECORDS SUMMARY | 2023-08-02 17:23 | XMS_ITS | Continuity of Care Document ---
Author Name Unknown Organization [facility] ter Address [address] [place] [id number]- Care Team Providers Care Telemetry Nurse Name Role Phone Mike Franks MD Primary Care Physician [phone] [facility] Date(s): 08/03/20 - 08/05/[address] [address]- [facility] Encounter Diagnosis Alcohol ingestion(Final) - 08/03/20 Alcohol abuse(Final) - 08/03/20 Discharge Disposition: A-D/C Home Attending Physician: Slim Grace MD Admitting Physician: Naseem Guerra MD Referring Physician: Not on Staff, Referring [...] 5 Refills Start Date: 06/22/09 Status: Ordered Results Radiology Reports * Exam Date Time Procedure Performing Provider Status 08/03/20 1:51 AM Chest 2 Views Frontal and Lat Lynnette Noble; Bola (Verified) Notes: (Chest 2 Views Frontal and Lat) Reason For Exam: Chest Pain;Other: RESULT: Chest 2 Views Frontal and Lat Examination: Chest performed on 08/03/2020. History: In withdrawal from alcohol. Hallucinations. Body aches. Findings: Frontal and lateral views of the chest are compared to a prior study dated 06/07/2020. The cardiac and mediastinal silhouettes are within normal limits. The lungs are clear. The osseous and soft tissue structures are unremarkable. Impression: There is no acute cardiopulmonary disease. WSN: [id number] Ordering Physician: Enrique Pitts Dictated By: Judith Corona MD Dictated Date/Time: 08/03/20 8:10 am Reviewed By: Judith Corona MD Signed By: Judith Corona MD Signed Date/Time: 08/03/20 8:10 am Transcribed By: JAMES Transcribed Date/Time: 08/03/20 8:09 am Vital Signs Most recent to oldest [Reference Range]: 1 2 3 Height 160 cm (08/04/20 1:40 PM) Weight 75.2 kg (08/04/20 1:40 PM) Oxygen Saturation [94-100 %] 98 % (08/05/20 7:00 AM) 98 % (08/05/20 1:00 AM) 99 % (08/04/20 1:40 PM) Pulse Rate [55-90 bpm] 97 bpm *H* (08/05/20 7:00 AM) 88 bpm (08/05/20 1:00 AM) 88 bpm (08/04/20 1:40 PM) Body Mass Index [18.5-24.99] 29.38 *H* (08/04/20 1:40 PM) Blood Pressure [90-138/55-84 mm Hg] 138/96mm Hg (08/05/20 7:00 AM) 134/97mm Hg (08/05/20 1:00 AM) 144/99mm Hg *H* (08/04/20 1:40 PM) Respiratory Rate [16-30 br/min] 18 br/min (08/05/20 7:00 AM) 18 br/min (08/05/20 1:00 AM) 18 br/min (08/04/20 9:57 PM) Temperature [96.8-100.4 DegF] 98.5 DegF (08/05/20 7:00 AM) 99.0 DegF (08/05/20 1:00 AM) 99.1 DegF (08/04/20 1:40 PM) Mode of Delivery (Oxygen) Room air (08/05/20 7:00 AM) Room air (08/05/20 1:00 AM) Room air (08/04/20 1:40 PM) Blood pressure sites Arm, left (08/04/20 1:40 PM) Arm, right (08/04/20 11:37 AM) Arm, left (08/04/20 8:14 AM) Temperature Route Oral (08/05/20 7:00 AM) Oral (08/05/20 1:00 AM) Oral (08/04/20 1:40 PM) Dry Weight 75.2 kg (08/04/20 1:40 PM)
--- OUTSIDE RECORDS SUMMARY | 2023-08-02 17:23 | XMS_ITS | Continuity of Care Document ---
Author Name Unknown Organization [facility] ter Address [address] [place] [id number] Care Team Providers Care Radiology Manager Name Role Phone Mike Franks MD Primary Care Physician Encounter [facility] Date(s): 06/13/23 - 06/14/[address] [address]- Discharge Disposition: A-D/C Home Attending Physician: Ashley Miles MD Admitting Physician: Amauri WARD, Juliette Wagoner Referring Physician: Not on Staff, Referring MD Allergies, Adverse Reactions, Alerts No Known Allergies Medications hydrOXYzine pamoate 50 mg oral capsule 1 capsule = 50 mg, By Mouth, 2 times a day, PRN Anxiety, # 60 capsule, 0 Refills, Maintenance, 04/05/23 8:19:00 EDT, Capsule, [id number], Partial fill upon patient request if the prescriptionis for a schedule II opioid drug., 160, cm, 2... Start Date: 04/05/23 Status: Ordered Multivitamin Tablet 1 tablet, By Mouth, Daily, 0 Refills, Maintenance, 04/05/23 9:29:00 EDT, Tablet, Partial fill upon patient request if the prescription is for a schedule II opioid drug. Start Date: 04/05/23 Status: Ordered traZODone 100 mg oral tablet 100 mg, 1, tablet, By Mouth, Daily at bedtime, PRN, # 1 tablet, Refills 0, Tot. Refills 0, Maintenance, Sleep, 04/05/23 8:20:00 EDT, Route to Pharmacy Electronically, [id number], Partial fillupon patient request if the prescription is for a s... Start Date: 04/05/23 Status: Ordered Problem List Condition Confirmation Course Effective Dates Status Health St atus Informant anxiety Confirmed Active GERD without esophagitis Confirmed Active PCOS (polycystic ovarian syndrome) Confirmed Active Alcohol use disorder, severe, dependence Confirmed Active Severe recurrent major depression Confirmed Active Vital Signs Most recent to oldest [Reference Range]: 1 2 3 Oxygen Saturation [94-100 %] 98 % (06/14/23 1:15 PM) 100 % (06/14/23 8:54 AM) 100 % (06/14/23 5:55 AM) Pulse Rate [55-90 bpm] 84 bpm (06/14/23 1:15 PM) 70 bpm (06/14/23 8:54 AM) 63 bpm (06/14/23 5:55 AM) Blood Pressure [90-138/55-84 mm Hg] 114/86mm Hg (06/14/23 1:15 PM) 112/74mm Hg (06/14/23 8:54 AM) 92/68mm Hg (06/14/23 5:55 AM) Respiratory Rate [16-30 br/min] 18 br/min (06/14/23 1:15 PM) 19 br/min (06/14/23 8:54 AM) 18 br/min (06/14/23 5:55 AM) Temperature [96.8-100.4 DegF] 97.5 DegF (06/14/23 1:15 PM) 98.6 DegF (06/13/23 8:11 PM) 98.6 DegF (06/13/23 2:41 PM) Mode of Delivery (Oxygen) Room air (06/14/23 1:15 PM) Room air (06/14/23 8:54 AM) Room air (06/14/23 5:55 AM) Blood pressure sites Arm, right (06/14/23 1:15 PM) Arm, left (06/14/23 8:54 AM) Arm, right (06/14/23 1:47 AM) Temperature Route Oral (06/14/23 1:15 PM) Oral (06/13/23 8:11 PM) Oral (06/13/23 2:41 PM) Social History Social History Type Response Smoking Status Never (less than 100 in lifetime) entered on: 01/25/23 Sex History and physical note * Camron WARD, Leonardo P: PERFORM Event Display: History and Physical Hospital Authored Date: Patient: ??TIMMONS, ALLYSSA ? Age:??32 Years?Sex:??Female?:??1990?? Chief Complaint/Reason for Consultation from home admits 3 beers today pt reports drinking everyday pt dc this am father reports he saw hertake a handful of pills from old scripts lisinopril and escitalopram intubated last month for overdose History of Present Illness 33-year-old female with??history of depression, prior suicide attempts requiring APTU hospitalizations, alcohol use disorder, previous alcohol withdrawal delirium and seizures, anxiety, PCOS, and GERD, who was just admitted from 06/08 to 06/12/2023??for alcohol withdrawal,??and returned in the lead manufacturing engineering tech of 06/13/2023??for reported seizure after argument with her mother,??again with evidence for alcohol withdrawal,??and??discharged this afternoon??AGAINST MEDICAL ADVICE.?? Last CIWA score priorto discharge was 28. ??She did receive a dose of diazepam 5 mg orally prior to discharge.?? She hadstated she had things to take care of at home with plans to seek care at [facility] for detox??later this week. ??She was described as alert and oriented x4 upon discharge, without SI or HI.?? Apparently upon??getting home, she began drinking beer again and admits to??3 beers earlier.?? Her stepfather??called EMS??after witnessing her take a handful ??of??his lisinopril 10 mg??and escitalopram??10 mg??pills.?? It is unclear how many she took.?? He also states she was making suicidal statements.?? The patient denies??current SI or HI,??and denies taking any pills today or any attempts of suicide.?? No reported fever, vomiting,??chest pain, shortness of breath, abdominal pain, diarrhea, or urinary symptoms. ?? In the emergency room, the patient has been afebrile and hemodynamically stable, but with tachycardia up to 136 on the monitor.?? This is sinus tachycardia.?? No respiratory distress or hypoxia.??CIWA scale escalated to 15, and the patient received 200 mg oral phenobarbital followed by 260 mg IV phenobarbital.?? The emergency room clinician spoke with poison control, who recommended observation for 24 hours with??EKGs every 2 hours, and optimization of electrolytes. Review of Systems Other than those positives as noted in the HPI above, the remaining comprehensive 14-point review of systems is negative. Objective ? Vital Signs?? Temperature: 98.6 DegF (06/13/23 20:11:00) Temperature Route: Oral (06/13/23 20:11:00) Pulse Rate:??136 bpm??High (06/13/23 20:11:00) Respiratory Rate: 20 br/min (06/13/23 20:11:00) Systolic Blood Pressure:??139 mm Hg??High (06/13/23:11:00) Diastolic Blood Pressure: 79 mm Hg (06/13/23 20:11:00) Blood pressure sites: Arm, right (06/13/23:11:00) Mean Arterial Pressure: 99 mm Hg (06/13/23 20:11:00) Pulse Pressure: 60 mm Hg (06/13/23 20:11:00) Oxygen Saturation: 96 % (06/13/23 20:11:00) Mode of Delivery (Oxygen): Room air (06/13/23 20:11:00) Early Warning Score: 3 (06/13/23 21:21:15) ? Pain Scores 1 - 10 Pain Scale Score: 0 (14:51) ? Physical Exam General Appearance: Alert, answers questions appropriately, tremulous, mild diaphoresis HEENT: Normocephalic, atraumatic, PERRL, EOMI, no nystagmus, no scleral icterus, no facial droop, moist mucous membranes, no oropharynx lesions?? Neck: Supple, no JVD, no C-Spine tenderness Cardiac: Tachycardic, regular rhythm,??S1 & S2 present, no m / r / g appreciated Chest: Clear to auscultation bilaterally, no wheezing / ronchi / rales Abdomen: Soft, nontender, no distention, no rebound or guarding, no masses Extremities: No clubbing, cyanosis, or edema. ??2+ distal pulses Skin: Warm, no rash or open wounds Neuro: ??A & O x 3, no focal motor or sensory deficits Psych:??Stable mood currently, denies SI Assessment/Plan Assessment:??33-year-old female with history of depression, prior suicide attempts requiring APTU hospitalizations, alcohol use disorder, previous alcohol withdrawal delirium and seizures, anxiety, PCOS, and GERD, who was just admitted from 06/08 to 06/12/2023 for alcohol withdrawal, and returned in the lead manufacturing engineering tech of 06/13/2023 for??recurrent??alcohol withdrawal, and discharged this afternoon AGAINST MEDICAL ADVICE. Last CIWA score prior to discharge was 28. She did receive a dose of diazepam 5mg orally prior to discharge.?She now returns after??consuming alcohol, and stepfather reported suicidal??ideations and??intentional overdose of??his lisinopril and escitalopram. The patient denies this, or any suicidal ideation at this time. ?? Alcohol withdrawal syndrome (F10.239) Alcohol use disorder, severe, dependence (F10.20):??Patient was given phenobarbital in the Emergency room to prevent alcohol withdrawal seizures. CIWA score up to 15 with??increased anxiety, tremors,diaphoresis, and tachycardia.?? She is at??increased risk due to history of withdrawal and DTs/prior seizure, no break in alcohol use over many years, heavy and sustained alcohol use, initial withdrawal symptoms with UAL greater than 200, and age greater than 30. ?? Continue symptom-triggered treatment protocol of alcohol withdrawal syndrome (TEJINDER) with phenobarbital as follows: ?? Based on body weight, Phenobarbital 65-130 mg IV push every 2 hours??for CIWA-Ar > 13.?? Max dose per 24 hours is 10 mg/kg IBW.?? Consider consulting SUPPORT CLERK to assist with escalating medication interventions. ?? Start Phenobarbital maintenance dose on Hospital Day 2, 30-60 mg BID tapered over 2-4 days. ?? Monitor for oversedation.?? Consider adjunctive medications such as Gabapentin, Clonidine, Haldol, and Risperdone for anxiety / agitation / autonomic symptoms. ?? Continue??Thiamine 100 mg orally twice daily, Folic acid 1 mg daily, MVI daily, and Pyridoxine 50 mg daily. ? Suicidal ideation (R45.851) Intentional overdose (T50.902A) Severe recurrent major depression (F33.2):??The patient denies ingestion of her stepfather's medications,??and denies any current suicidal ideation.?? Stepfather is not currently present to discuss. Alcohol level here noted to be 209. Acetaminophen and salicylate levels negative. She does have anion gap metabolic acidosis similar to previous, likely secondary to alcohol. Poison control??recommends observation on telemetry for 24 hours with EKG every 2 hours to follow QT interval. Goal potassium greater than 4.0 and goal magnesium greater than 2.0. Monitor hemodynamics and mental status. Follow-up urine toxicology screen. Suicide precautions and one-to-one sitter. Psychiatry consultation; patient may not leave AMA until cleared by psychiatry. Hold psychiatric medications for now (patient previously on??buspirone, hydroxyzine, prazosin,??sertraline, and trazodone). ?? Hypokalemia (E87.6):??Patient received 40 mg oral potassium chloride in the emergency room??for level 3.5 earlier. Magnesium level 1.8. We will give 1 g IV magnesium sulfate now??with goal level greater than 2.0.??Repeat electrolytes stat now with goal K greater than 4.0. Follow-up metabolic panel and magnesium level in the morning. ?? VTE Prophylaxis:??Low risk per??VTE guidelines. ?VTE Prophylaxis Assessment:??Risk Level documented as Low Risk ?? Code Status:??FULL, presumed. ?Order Code Status:??Code Status Ordered ?? Discharge Planning:??Disposition pending psychiatric evaluation;??anticipate??1 to 2 days hospitalization. ?? I spent a total of??75 minutes today reviewing the chart / medical records, evaluating the patient,evaluating and interpreting laboratory and imaging data, formulating and discussing the treatment plan, and documenting the encounter. ? Histories Allergies Allergies ?(Active and Proposed Allergies Only) No Known Medication Allergies? (Severity: Unknown severity, Onset: Unknown) NKA? (Severity: Unknown severity, Onset: Unknown) ? Past Medical History/Problem List Active Problems??(5) Alcohol use disorder, severe, dependence Anxiety GERD without esophagitis PCOS (polycystic ovarian syndrome) Severe recurrent major depression ? Past Surgical History No surgery history documented. ? Social History Alcohol Details:??Use: Current. ??Frequency: Daily. Substance Abuse Details:??Use: Daily marijuana, rare cocaine. Tobacco Details:??Use: Never (less than 100 in lifetime). ? Family History Alcohol use disorder in mother and father. ? Medications Home Medications BusPIRone (busPIRone 15 mg oral tablet)?1?tab(s)?15?Milligram?By Mouth?2 times a day Folic Acid (folic acid 1 mg oral tablet)?1?Milligram?1?tablet?By Mouth?Daily HydrOXYzine (hydrOXYzine pamoate 50 mg oral capsule)?1?capsule?50?Milligram?By Mouth?2 times a day?as needed?Anxiety Melatonin (melatonin 3 mg oral tablet)?1?tab(s)?3?Milligram?By Mouth?Daily at bedtime Multivitamin (Multivitamin Tablet)?1?tab(s)?By Mouth?Daily Naltrexone (naltrexone 380 mg intramuscular injection, extended release)?380?Milligram?Intramuscular?Every 28 days?next due on 05/02/23 Prazosin (prazosin 1 mg oral capsule)?3?Milligram?3?capsule?By Mouth?Daily at bedtime Pyridoxine (pyridoxine 50 mg oral tablet)?50?Milligram?1?tablet?By Mouth?Daily Sertraline (sertraline 100 mg oral tablet)?1?tab(s)?100?Milligram?By Mouth?Daily Trazodone (traZODone 100 mg oral tablet)?100?Milligram?1?tablet?By Mouth?Daily atbedtime ? Results Recent Labs BLOOD COUNT & DIFF WBC 9.5 k/mm3 ()?? 06/13/2023 16:24 RBC 5.27 m/mm3 ()?? 06/13/2023 16:24 Hgb 13.6 Gm/dL ()?? 06/13/2023 16:24 Hct 42.0 % ()?? 06/13/2023 16:24 MCV 79.7 femtoliters (Low)?? 06/13/2023 16:24 MCH 25.8 pg (Low)?? 06/13/2023 16:24 MCHC 32.4 g/dL (Low)?? 06/13/2023 16:24 Platelet Count 237 k/mm3 ()?? 06/13/2023 16:24 RDW-SD 43.8 femtoliters ()?? 06/13/2023 16:24 MPV 10.1 femtoliters ()?? 06/13/2023 16:24 Nucleated RBC (Automated) 0.0 #/100 WBC'S ()?? 06/13/2023 16:24 Abs. NRBC 0.0 k/mm3 ()?? 06/13/2023 16:24 Abs. Neut 6.4 k/mm3 ()?? 06/13/2023 16:24 Abs. Lymph 2.7 k/mm3 ()?? 06/13/2023 16:24 Abs. [place] 0.4 k/mm3 ()?? 06/13/2023 16:24 Abs. Eo 0.0 k/mm3 ()?? 06/13/2023 16:24 Abs. Baso 0.0 k/mm3 ()?? 06/13/2023 16:24 Neut % 66.6 % ()?? 06/13/2023 16:24 Lymph % 28.3 % ()?? 06/13/2023 16:24 [place] % 4.3 % (Low)?? 06/13/2023 16:24 Eos % 0.1 % ()?? 06/13/2023 16:24 Baso % 0.4 % ()?? 06/13/2023 16:24 Imm Gran 0.3 % ()?? 06/13/2023 16:24 Abs. Imm Gran 0.0 k/mm3 ()?? 06/13/2023 16:24 ?? CARDIAC High Sensitivity Troponin (HSTnT) <6 ng/L ()?? 06/13/2023 16:24 ?? CHEM GENERAL Sodium 143 mmol/L ()?? 06/13/2023 16:24 Potassium 3.5 mmol/L (Low)?? 06/13/2023 16:24 Chloride 105 mmol/L ()?? 06/13/2023 16:24 Bicarbonate Level 17 mmol/L (Low)?? 06/13/2023 16:24 Anion Gap 21 (High)?? 06/13/2023 16:24 Glucose Level 123 mg/dL (High)?? 06/13/2023 16:24 BUN 8 mg/dL ()?? 06/13/2023 16:24 Creatinine-Blood 0.7 mg/dL ()?? 06/13/2023 16:24 Estimated GFR Creatinine 118 ML/MIN/1.73 M2 ()?? 06/13/2023 16:24 Calcium 9.4 mg/dL ()?? 06/13/2023 16:24 Magnesium 1.8 mg/dL ()?? 06/13/2023 16:24 Protein, Total 7.9 Gm/dL ()?? 06/13/2023 16:24 Albumin 4.8 Gm/dL ()?? 06/13/2023 16:24 AG Ratio 1.6 ()?? 06/13/2023 06:27 Alkaline Phosphatase 98 units/L ()?? 06/13/2023 16:24 AST (SGOT) 38 units/L (High)?? 06/13/2023 16:24 ALT (SGPT) 22 units/L ()?? 06/13/2023 16:24 Bilirubin, Total 0.3 mg/dL ()?? 06/13/2023 16:24 Bilirubin, Direct <0.2 mg/dL ()?? 06/13/2023 16:24 Bilirubin, Indirect Direct bilirubin is less than the measureable limit. Therefore, indirect mg/dL ()?? 06/13/2023 16:24 ?? ENDOCRINE/TUMOR MARKER TSH 0.66 uIU/mL ()?? 06/13/2023 16:24 Blood <1 mIU/mL ()?? 06/13/2023 16:24 Serum Qual NEGATIVE mIU/mL ()?? 06/13/2023 06:30 ?? HEME OTHER Hold Lavender Top SPECIMEN DISCARDED AFTER 24 HOURS. ()?? 06/13/2023 20:30 Hold Blue Top SPECIMEN DISCARDED AFTER 4 HOURS. ()?? 06/13/2023 20:30 ?? MISC. CHEMISTRY Hold Green Top SPECIMEN DISCARDED AFTER 1 WEEK ()?? 06/13/2023 20:30 Hold Gel Top SPECIMEN DISCARDED AFTER 1 WEEK ()?? 06/13/2023 20:30 ?? TOXICOLOGY/TDM Ethanol, Serum or Plasma 209 mg/dL (Abnormal)?? 06/13/2023 16:24 Salicylate Level <0.3 mg/dL (Low)?? 06/13/2023 16:24 Acetaminophen Level <5 mg/L (Low)?? 06/13/2023 16:24 ?? URINE OTHER Est Creatinine Clearance 83.48 mL/min ()?? 06/13/2023 07:04 ? Imaging(s) ?Other Image ?EKG: Ventricular Rate: 106 BPM Atrial Rate: 106 BPM P-R Interval: 162 ms QRS Duration: 88 ms Q-T Interval: 366 ms QTC Calculation(Bazett): 486 ms??(480 ms earlier today at noon prior to ingestion) P [place]: 65 degrees R [place]: -26 degrees T [place]: 53 degrees Sinus tachycardia Otherwise normal ECG When compared with ECG of 08-JUN-2023 16:52, No significant change Confirmed by DADA MELENDEZ ([id number]) on 06/11/2023 1:14:57 PM ? Consult note * Phil Sol: MODIFY, MODIFY, MODIFY, MODIFY, MODIFY Phil Sol: MODIFY, MODIFY Phil Sol: MODIFY Anitra Rodriguez MD: PERFORM, MODIFY Anitra Rodriguez MD: MODIFY Event Display: Consultation Note Authored Date: [id number] Patient: ??ALLYSSA TIMMONS ? Age:??32 Years?Sex:??Female?:??1990?? Chief Complaint/Reason for Consultation safety assessment History of Present Illness ?Referring Provider:??Donna Mishra NP ?Consulting psychiatrist:??Dr. Guevara??João, DO ?Sources of information: [facility] and Patient ?Identifying information Allyssa??Shanelle??is a 33-year-old female with??past medical history of alcohol use disorder, alcohol withdrawal seizures, depression, anxiety??and history of 2 prior section 35 treatments who presents to the emergency department for concerns of suicidal ideation after her??mother's boyfriend??witnessed??taking her handful of his escitalopram and lisinopril. ?History of Present Illness Per chart chart review, ?? Allyssa was last seen in the ED on 06/09 for acute alcohol withdrawal as well as SI and was seen by psychiatry and cleared??of inpatient hospitalization. Addiction??team consulted last time and patient?? she expressed that she did not have any interest in starting any medication for ETOH and no interest in any particular resources to help with her ETOH use.??Although, she expressed interest in anew disaster recovery manager and dose adjustment for depression medications. History is significant for??multiple??suicide attempts and??APTU hospitalizations.? In the ED??patient is??afebrile, tachycardic??at 118??bpm, blood pressure of 124/89 mmHg and oxygen saturation of 99% on room air. BMP??shows anion gap of 15 with low??bicarb 21.?? test was negative.?? Ethanol serum was elevated at??214 at time of arrival.??She received folic acid, multivitamins,??260 mg of phenobarbital 2x, melatonin 3 mg, ??pyridoxine and thiamine.??CIWA??ranging fr om??0 to 15. EKG showed sinus tachycardia at a rate of 114, QTc 433, no ST elevation or ischemic changes. 3 EKGs performed??every 4 hours thereafter normal with no changes. Ethanol level 209. UTox positive??for barbiturates and cannabis. Negative for??cocaine, benzo, amphetamines,??opiates, salicylates, acetaminophen.??Admitted to??inpatient service for??24 hour??monitoring??with EKGs every 4 hours per request of Poison control. Psychiatry was consulted for suicidal ideation and concerns for possible suicide attempt via ingestion of medications witnessed by her mother's boyfriend. ?? At the patients bedside with resident Dr. Anitra Rodriguez, patient was sleeping in ED in no acute cardiopulmonary distress.??Vital signs all stabilized. Pt reports that she is feeling upset. She claimsthat her mother's boyfriend called an ambulance on her after claiming that she took some of his medications. She denies these allegations and says that she only had 3 beers yesterday. She states thatever since 01/2023 when she overdosed on Quetiapine??and was intubated on the MICU, her mother and other people have not trusted her.??She??wishes to go down to [place] on 06/22/2023 but claims her mother is doing everything to stop her from going, including calling the??ambulance.??She endorses working to cut back significantly on alcohol use and working with [employer] to find a disaster recovery manager. She also is thinking of joining an AA on [facility]. She uses marijuana socially??before bed a few times a week.??She denies any other illicit substance use. ?? Upon further interview, Carries states that she stopped all her depression medications includingBuSpar 15mg BID and Sertraline 100 mg??two??weeks ago because she feels better off of them. ??She uses 150 mg of Trazodone PRN (increased by her psychiatrist)??for insomnia??and 50 mg of Hydroxyzine BID??PRN for anxiety. She has tried Naltrexone 50 mg (last fill 03/02/23) and acamprosate injections in the past but currently not interested in MAT. She also used to take??Prazosin 1 mg but stopped because they were not helping her??nightmares.??She states that she is spiritual and has been seeking prayer for her depressive symptoms. ??She is seeing her therapist weekly and has an upcoming psychiatry appointment on Monday and is open to maybe restarting a medication. Safety assessment implemented and pt denies any SI, HI, AVH. She feels safe at home and??would not like to voluntary admit to APTU??for medication management. ?Past Psychiatric History?Previous diagnoses:??MDD,??Anxiety ?Past hospitalizations:??Unknown hospital??a few weeks ago and??multiple APTU hospitalizations, last in March 2023 ?Medication trials: buspirone, hydroxyzine, sertraline, trazodone ?Outpatient providers: [facility]??and therapy at [facility] ?Previous self-harm, suicide attempts, aggression: Multiple??suicide attempts documented, most recent??toxic??ingestion??in 02/11 requiring??MICU. ?Family History?Past diagnoses: alcohol use disorder ?? Suicide attempts: Denies ?Social History?Patient is currently living with mother. 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 ?Substance Abuse History?Patient reports drinking beer all day every day from the time she gets up until she goes to sleep. Also admits to marijuana use socially but denies any other substance use. ?Review of Systems: ?A full ROS was completed and was negative with the exception of pertinent positives noted in the history of the presenting illness ? Review of Systems Depression: denies??decreased sleep, energy, concentration and appetite; denies any guilt, or suicidality Anahi:??denies distractibility, insomnia, grandiosity, flight of ideas, increased activities, pressured speech, thoughtlessness (risky behaviors) Psychosis:??denies any current auditory or visual hallucinations, preoccupation with supernatural, suspiciousness, odd speech Anxiety:??denies panic attacks, excessive worry, sleeplessness, fatigue, restlessness PTSD:??denies nightmares, flashbacks, irritability, hypervigilance, exaggerated startle response Objective Vital Signs?? Temperature: 98.6 DegF (06/13/23 20:11:00) Temperature Route: Oral (06/13/23 20:11:00) Pulse Rate: 70 bpm (06/14/23 08:54:00) Respiratory Rate: 19 br/min (06/14/23 08:54:00) Systolic Blood Pressure: 112 mm Hg (06/14/23 08:54:00) Diastolic Blood Pressure: 74 mm Hg (06/14/23 08:54:00) Blood pressure sites: Arm, left (06/14/23 08:54:00) Mean Arterial Pressure: 76 mm Hg (06/14/23 05:55:00) Pulse Pressure: 24 mm Hg (06/14/23 05:55:00) Oxygen Saturation: 100 % (06/14/23 08:54:00) Mode of Delivery (Oxygen): Room air (06/14/23 08:54:00) Early Warning Score: 1 (06/14/23 08:56:27) ?? EKG: QTc 433 ?? Physical Exam Mental Status Exam Appearance: This is a female dressed in hospital gown,??NAD, appears stated age, well groomed, good??hygiene Eye contact: appropriate Attitude: cooperative with pleasant demeanor?? Motor Activity:??no tremors, no psychomotor agitation or??slowing Mood: upset Affect: congruent, constricted, full range, supple motility Speech: normal rate, tone and prosody?? Perception: No delusions, AVH, paranoia, or abnormal thought content elicited. Orientation: intact ? Memory: intact Thought Process: Linear and goal directed Thought Content: future oriented Insight: good Judgment: good Suicidality/Self-destructive Behavior: denies SI/SIB Homicidality/Violence: denies ?? MSK Exam:??able to move all 4 extremities spontaneously. No rigidity noted.?? Assessment/Plan ?? Assessment:? Allyssa??Timmons??is a 33-year-old female with??past medical history of alcohol use disorder, alcohol withdrawal seizures, depression, anxiety??and history of 2 prior section 35 treatments who re-presented [facility] ED on 06/13 after AMA discharge on 06/12 for concerns of suicidal ideation after her??mother's boyfriend??witnessed??taking her handful of his escitalopram and lisinopril. Psychiatry was consulted for SI with attempt??and evaluation of need for inpatient psychiatric admission. From chart review, the patient's alcohol use is a contributing factor to impulsive behaviors and prior SI while under the influence. Despite the patient's denial of ingestion, the amount ingested was nonlethal anddid not require overt medical sequelae such as critical care intervention. At most the ingestion seems to be in the context of an argument with the patients mother and was not??planned, thought-out suicide attempt. Risk factors for SI include alcohol use disorder and prior attempts and hospitalizati ons. Protective factors include robust outpatient support with psychiatric prescriber and therapy scheduled for next week, nonlethal present ingestion, spirituality, and patient's future-orientation.Her recent ingestion does not appear to be an impulsive act and she has a history of making SI statements in the past in the context of alcohol intoxication which could be a factor in this presentation. She does not meet criteria for involuntary inpatient level of care at this time. She declined MAT or social support for alcohol use stating she actively seeking a disaster recovery manager through [facility]. She denied SI, HI, AVH in the past 2 weeks and advocates for discharge. ?? Diagnoses: Unspecified depressive disorder Alcohol use disorder, severe ?? Recommendations: - Patient does not meet criteria for inpatient psychiatric hospitalization at this time - Cleared from psychiatric perspective for discharge. - Follow up with outpatient psychiatric provider and therapy ?? Thank you for allowing us to participate in this patient's care. We will sign off. Please feel free to contact the Psychiatry consult service (call [phone] or page [phone]) with any questions or concerns.? Case and plan discussed with attending psychiatrist, Dr. Ismael Moyer, DO Recommendations??cortexted to Dr. Ashley Miles MD ?? Patient care and documentation assisted by Phil Sol, MS3 [facility] ? Histories Past Medical History/Problem List Active Problems??(5) Alcohol use disorder, severe, dependence anxiety GERD without esophagitis PCOS (polycystic ovarian syndrome) Severe recurrent major depression ? Social History Alcohol Details:??Use: Current. ??Frequency: Daily. Substance Abuse Details:??Use: pt refuses to discuss. Tobacco Details:??Use: Never (less than 100 in lifetime). ? Medications Home Medications BusPIRone (busPIRone 15 mg oral tablet)?1?tab(s)?15?Milligram?By Mouth?2 times a day Folic Acid (folic acid 1 mg oral tablet)?1?Milligram?1?tablet?By Mouth?Daily HydrOXYzine (hydrOXYzine pamoate 50 mg oral capsule)?1?capsule?50?Milligram?By Mouth?2 times a day?as needed?Anxiety Melatonin (melatonin 3 mg oral tablet)?1?tab(s)?3?Milligram?By Mouth?Daily at bedtime Multivitamin (Multivitamin Tablet)?1?tab(s)?By Mouth?Daily Naltrexone (naltrexone 380 mg intramuscular injection, extended release)?380?Milligram?Intramuscular?Every 28 days?next due on 05/02/23 Prazosin (prazosin 1 mg oral capsule)?3?Milligram?3?capsule?By Mouth?Daily at bedtime Pyridoxine (pyridoxine 50 mg oral tablet)?50?Milligram?1?tablet?By Mouth?Daily Sertraline (sertraline 100 mg oral tablet)?1?tab(s)?100?Milligram?By Mouth?Daily Trazodone (traZODone 100 mg oral tablet)?100?Milligram?1?tablet?By Mouth?Daily atbedtime ? Inpatient Medications Medications (9) Active SCHEDULED: (4) Folic Acid 1 mg Tablet (Folic Acid Tablet) ??1 mg, By Mouth, Daily Multivitamin Tablet ??1 tablet, By Mouth, Daily Pyridoxine 50 mg Tablet (Pyridoxine Tablet) ??50 mg, By Mouth, Daily Thiamine 100 mg Tablet (Thiamine Tablet) ??100 mg, By Mouth, 2 times a day CONTINUOUS: (0) PRN: (5) Acetaminophen 325 mg Tablet (Acetaminophen Tablet) ??650 mg, By Mouth, Every 4 hours Melatonin 3 mg Tablet (Melatonin Tablet) ??3 mg, By Mouth, Daily at bedtime NaCl 0.9% Flush 3ml (NaCL 0.9% Flush) ??3 mL, IV Push, Every 8 hours Phenobarbital 65 mg/mL Inj (Phenobarbital Inj) ??65 mg 1 mL, IV Push, Every 2 hours Senna 8.6 mg / Docusate 50 mg tablet (Docusate/Senna Tablet) ??1 tablet, By Mouth, 2 times a day ? Results Recent Labs BLOOD COUNT & DIFF WBC 6.2 k/mm3 ()?? 06/14/2023 07:33 RBC 5.07 m/mm3 ()?? 06/14/2023 07:33 Hgb 13.0 Gm/dL ()?? 06/14/2023 07:33 Hct 40.4 % ()?? 06/14/2023 07:33 MCV 79.7 femtoliters (Low)?? 06/14/2023 07:33 MCH 25.6 pg (Low)?? 06/14/2023 07:33 MCHC 32.2 g/dL (Low)?? 06/14/2023 07:33 Platelet Count 193 k/mm3 ()?? 06/14/2023 07:33 RDW-SD 44.9 femtoliters ()?? 06/14/2023 07:33 MPV 10.0 femtoliters ()?? 06/14/2023 07:33 Nucleated RBC (Automated) 0.0 #/100 WBC'S ()?? 06/14/2023 07:33 Abs. NRBC 0.0 k/mm3 ()?? 06/14/2023 07:33 Abs. Neut 3.8 k/mm3 ()?? 06/14/2023 07:33 Abs. Lymph 1.6 k/mm3 ()?? 06/14/2023 07:33 Abs. [place] 0.6 k/mm3 ()?? 06/14/2023 07:33 Abs. Eo 0.1 k/mm3 ()?? 06/14/2023 07:33 Abs. Baso 0.0 k/mm3 ()?? 06/14/2023 07:33 Neut % 62.1 % ()?? 06/14/2023 07:33 Lymph % 25.6 % ()?? 06/14/2023 07:33 [place] % 10.4 % ()?? 06/14/2023 07:33 Eos % 1.1 % ()?? 06/14/2023 07:33 Baso % 0.6 % ()?? 06/14/2023 07:33 Imm Gran 0.2 % ()?? 06/14/2023 07:33 Abs. Imm Gran 0.0 k/mm3 ()?? 06/14/2023 07:33 ?? CARDIAC High Sensitivity Troponin (HSTnT) <6 ng/L ()?? 06/13/2023 16:24 ?? CHEM GENERAL Sodium 134 mmol/L ()?? 06/14/2023 07:33 Potassium 4.3 mmol/L ()?? 06/14/2023 07:33 Chloride 101 mmol/L ()?? 06/14/2023 07:33 Bicarbonate Level 23 mmol/L ()?? 06/14/2023 07:33 Anion Gap 10 ()?? 06/14/2023 07:33 Glucose Level 85 mg/dL ()?? 06/14/2023 07:33 BUN 9 mg/dL ()?? 06/14/2023 07:33 Creatinine-Blood 0.5 mg/dL ()?? 06/14/2023 07:33 Estimated GFR Creatinine 126 ML/MIN/1.73 M2 ()?? 06/14/2023 07:33 Calcium 9.3 mg/dL ()?? 06/14/2023 07:33 Phosphorus 3.0 mg/dL ()?? 06/14/2023 07:33 Magnesium 2.0 mg/dL ()?? 06/14/2023 07:33 Protein, Total 7.0 Gm/dL ()?? 06/14/2023 07:33 Albumin 4.2 Gm/dL ()?? 06/14/2023 07:33 AG Ratio 1.5 ()?? 06/14/2023 07:33 Alkaline Phosphatase 93 units/L ()?? 06/14/2023 07:33 AST (SGOT) 29 units/L ()?? 06/14/2023 07:33 ALT (SGPT) 18 units/L ()?? 06/14/2023 07:33 Bilirubin, Total 0.6 mg/dL ()?? 06/14/2023 07:33 Bilirubin, Direct <0.2 mg/dL ()?? 06/13/2023 16:24 Bilirubin, Indirect Direct bilirubin is less than the measureable limit. Therefore, indirect mg/dL ()?? 06/13/2023 16:24 ?? ENDOCRINE/TUMOR MARKER TSH 0.66 uIU/mL ()?? 06/13/2023 16:24 Blood <1 mIU/mL ()?? 06/13/2023 16:24 Serum Qual NEGATIVE mIU/mL ()?? 06/13/2023 06:30 ?? HEME OTHER Hold Lavender Top SPECIMEN DISCARDED AFTER 24 HOURS. ()?? 06/13/2023 20:30 Hold Blue Top SPECIMEN DISCARDED AFTER 4 HOURS. ()?? 06/13/2023 20:30 ?? MISC. CHEMISTRY Hold Green Top SPECIMEN DISCARDED AFTER 1 WEEK ()?? 06/13/2023 20:30 Hold Gel Top SPECIMEN DISCARDED AFTER 1 WEEK ()?? 06/13/2023 20:30 ?? TOXICOLOGY/TDM Ethanol, Serum or Plasma 209 mg/dL (Abnormal)?? 06/13/2023 16:24 Salicylate Level <0.3 mg/dL (Low)?? 06/13/2023 16:24 Barbiturate Screen, Urine POSITIVE (Abnormal)?? 06/13/2023 20:45 Cannabinoid Screen, Urine POSITIVE (Abnormal)?? 06/13/2023 20:45 Cocaine Metabolite Screen, Urine NONE DETECTED ()?? 06/13/2023 20:45 Benzodiazepine Screen, Urine NONE DETECTED ()?? 06/13/2023 20:45 Amphetamine Screen, Urine NONE DETECTED ()?? 06/13/2023 20:45 Opiate Screen, Urine NONE DETECTED ()?? 06/13/2023 20:45 Acetaminophen Level <5 mg/L (Low)?? 06/13/2023 16:24 ?? URINE OTHER Est Creatinine Clearance 83.48 mL/min ()?? 06/13/2023 07:04 ? Note * Ashley Miles MD: PERFORM Event Display: Discharge/Transfer Note Hospital Authored Date: [id number] Patient: ??TIMMONS, ALLYSSA ? Age:??32 Years?Sex:??Female?:??1990?? Patient Information Discharge Location: [facility] Primary Care Physician: Mike Franks MD Admit Date/Time: 06/13/23 14:26 Discharge Disposition Discharge Disposition: Home: No Services Discharge Diagnosis ?? Alcohol withdrawal syndrome (F10.239) Alcohol use disorder, severe, dependence (F10.20) Suicidal ideation (R45.851) Concern for drug overdose Hypokalemia (E87.6) ?? _ Discharge Medications ?? HydrOXYzine (hydrOXYzine pamoate 50 mg oral capsule)?1?capsule?50?Milligram?By Mouth?2 times a day?as needed?Anxiety Multivitamin (Multivitamin Tablet)?1?tab(s)?By Mouth?Daily Trazodone (traZODone 100 mg oral tablet)?100?Milligram?1?tablet?By Mouth?Daily atbedtime?as needed?Sleep ?? Medications Started None Medications Discontinued None Of note patient states that she stopped taking sertraline, buspirone, prazosin??for more than 2 weeks now Allergies Allergies ?(Active and Proposed Allergies Only) No Known Medication Allergies? (Severity: Unknown severity, Onset: Unknown) NKA? (Severity: Unknown severity, Onset: Unknown) ? PCP Follow-Up/Heads-Up ?? Outpatient??psych/behavioral health therapist follow-up ?? Hospital Course ?33-year-old female with history of depression, prior suicide attempts requiring APTU hospitalizations, alcohol use disorder, previous alcohol withdrawal delirium and seizures, anxiety, PCOS, and GERD, who was just admitted from 06/08 to 06/12/2023 for alcohol withdrawal, and returned in the lead manufacturing engineering tech of 06/13/2023 for??recurrent??alcohol withdrawal, and discharged this afternoon AGAINST MEDICAL ADVICE. Last CIWA score prior to discharge was 28. She did receive a dose of diazepam 5 mg orally prior to discharge.? She came back this time??with concern for suicidal ideation and intentional overdose??of her stepfather's lisinopril and escitalopram??and alcohol??use.?? Of note patient denies taking??any medications??and denies any suicidal ideation ?? Alcohol withdrawal syndrome (F10.239) Alcohol use disorder, severe, dependence (F10.20):?? CIWA score was??elevated to 15 overnight???was then 6 early in the morning and down to 2 She says she is feeling much better today??and asking to go home Not interested in taking MAT says did not help her in the past but she is??working with a disaster recovery manager. ??Also trying to cut down Plan Encourage patient??regarding being sober Continue with multivitamin Not interested in MATs???wants to work with disaster recovery manager as outpatient ?? Suicidal ideation (R45.851) Concern for intentional drug overdose Severe recurrent major depression (F33.2):?? The patient denies ingestion of her stepfather's medications,??and denies any current suicidal ideation.?? Alcohol level here noted to be 209. Acetaminophen and salicylate levels negative. She does have anion gap metabolic acidosis similar to previous, likely secondary to alcohol. Poison control??recommends observation on telemetry for 24 hours to look for arrhythmia??and to monitor electrolytes EKG done??on 06/14 AM??showed QTc less than??490 and mostly normal sinus rhythm. ??Telemetry has been unremarkable Patient was evaluated by psychiatry - Patient does not meet criteria for inpatient psychiatric hospitalization at this time and cleared from psychiatric perspective for discharge. Plan Follow up with outpatient psychiatric provider and therapy Continue with as needed trazodone at bedtime??and as needed hydroxyzine Of note patient states she??she no longer takes??buspirone, prazosin and sertraline Objective ?? Seen in the morning Had constant lean manufacturing engineer Was awake alert??saying??she did not want to come to the hospital but was brought here??by her family.?? She??says that she did not take any??medications ?? She is also asking to go home??and says that she??feels okay???says that she??has had depression inthe past but currently denies being overtly depressed or with any suicidal thoughts ?? Denies any chest pain shortness of breath Labs reviewed and stable EKG done today morning???reviewed??QTc was??490 Telemetry unremarkable ?? Seen by psychiatry and cleared??for discharge from the standpoint Vitals, labs, telemetry stable ?? Patient was also seen by social media campaign manager Vital Signs?? Temperature: 98.6 DegF (06/13/23 20:11:00) Temperature Route: Oral (06/13/23 20:11:00) Pulse Rate: 70 bpm (06/14/23 08:54:00) Respiratory Rate: 19 br/min (06/14/23 08:54:00) Systolic Blood Pressure: 112 mm Hg (06/14/23 08:54:00) Diastolic Blood Pressure: 74 mm Hg (06/14/23 08:54:00) Blood pressure sites: Arm, left (06/14/23 08:54:00) Mean Arterial Pressure: 76 mm Hg (06/14/23 05:55:00) Pulse Pressure: 24 mm Hg (06/14/23 05:55:00) Oxygen Saturation: 100 % (06/14/23 08:54:00) Mode of Delivery (Oxygen): Room air (06/14/23 08:54:00) Early Warning Score: 1 (06/14/23 08:56:27) ? . Physical Exam ?? Seen in the ER???no acute distress, was calm??and cooperative Chest is clear to auscultation Heart sounds regular Abdomen soft, bowel sound present Awake alert oriented x3 Consultants Psychiatry Pending Results Add On Lab Order ordered on 06/13/2023 Add On Lab Order ordered on 06/13/2023 Add On Lab Order ordered on 06/13/2023 COVID-19 (2019 Novel Coronavirus) PCR ordered on 06/13/2023 Electrolytes ordered on 06/13/2023 Follow-Up Appointments Added Follow Up ?Time Frame ?Comments Mike Franks MD?Please follow-up with your outpatient??therapist??to review your??psych meds Post Discharge Care Diet: Regular Diet Activity: as tolerated Code Status: ?? Full Resuscitation Home Health Face to Face ^HomeHealthFTF Results Discharge Labs BLOOD COUNT & DIFF WBC 6.2 k/mm3 ()?? 06/14/2023 07:33 RBC 5.07 m/mm3 ()?? 06/14/2023 07:33 Hgb 13.0 Gm/dL ()?? 06/14/2023 07:33 Hct 40.4 % ()?? 06/14/2023 07:33 MCV 79.7 femtoliters (Low)?? 06/14/2023 07:33 MCH 25.6 pg (Low)?? 06/14/2023 07:33 MCHC 32.2 g/dL (Low)?? 06/14/2023 07:33 Platelet Count 193 k/mm3 ()?? 06/14/2023 07:33 RDW-SD 44.9 femtoliters ()?? 06/14/2023 07:33 MPV 10.0 femtoliters ()?? 06/14/2023 07:33 Nucleated RBC (Automated) 0.0 #/100 WBC'S ()?? 06/14/2023 07:33 Abs. NRBC 0.0 k/mm3 ()?? 06/14/2023 07:33 Abs. Neut 3.8 k/mm3 ()?? 06/14/2023 07:33 Abs. Lymph 1.6 k/mm3 ()?? 06/14/2023 07:33 Abs. [place] 0.6 k/mm3 ()?? 06/14/2023 07:33 Abs. Eo 0.1 k/mm3 ()?? 06/14/2023 07:33 Abs. Baso 0.0 k/mm3 ()?? 06/14/2023 07:33 Neut % 62.1 % ()?? 06/14/2023 07:33 Lymph % 25.6 % ()?? 06/14/2023 07:33 [place] % 10.4 % ()?? 06/14/2023 07:33 Eos % 1.1 % ()?? 06/14/2023 07:33 Baso % 0.6 % ()?? 06/14/2023 07:33 Imm Gran 0.2 % ()?? 06/14/2023 07:33 Abs. Imm Gran 0.0 k/mm3 ()?? 06/14/2023 07:33 ?? CARDIAC High Sensitivity Troponin (HSTnT) <6 ng/L ()?? 06/13/2023 16:24 ? CHEM GENERAL Sodium 134 mmol/L ()?? 06/14/2023 07:33 Potassium 4.3 mmol/L ()?? 06/14/2023 07:33 Chloride 101 mmol/L ()?? 06/14/2023 07:33 Bicarbonate Level 23 mmol/L ()?? 06/14/2023 07:33 Anion Gap 10 ()?? 06/14/2023 07:33 Glucose Level 85 mg/dL ()?? 06/14/2023 07:33 BUN 9 mg/dL ()?? 06/14/2023 07:33 Creatinine-Blood 0.5 mg/dL ()?? 06/14/2023 07:33 Estimated GFR Creatinine 126 ML/MIN/1.73 M2 ()?? 06/14/2023 07:33 Calcium 9.3 mg/dL ()?? 06/14/2023 07:33 Phosphorus 3.0 mg/dL ()?? 06/14/2023 07:33 Magnesium 2.0 mg/dL ()?? 06/14/2023 07:33 Protein, Total 7.0 Gm/dL ()?? 06/14/2023 07:33 Albumin 4.2 Gm/dL ()?? 06/14/2023 07:33 AG Ratio 1.5 ()?? 06/14/2023 07:33 Alkaline Phosphatase 93 units/L ()?? 06/14/2023 07:33 AST (SGOT) 29 units/L ()?? 06/14/2023 07:33 ALT (SGPT) 18 units/L ()?? 06/14/2023 07:33 Bilirubin, Total 0.6 mg/dL ()?? 06/14/2023 07:33 Bilirubin, Direct <0.2 mg/dL ()?? 06/13/2023 16:24 Bilirubin, Indirect Direct bilirubin is less than the measureable limit. Therefore, indirect mg/dL ()?? 06/13/2023 16:24 ? ENDOCRINE/TUMOR MARKER TSH 0.66 uIU/mL ()?? 06/13/2023 16:24 Blood <1 mIU/mL ()?? 06/13/2023 16:24 ?? HEME OTHER Hold Lavender Top SPECIMEN DISCARDED AFTER 24 HOURS. ()?? 06/13/2023 20:30 Hold Blue Top SPECIMEN DISCARDED AFTER 4 HOURS. ()?? 06/13/2023 20:30 ?? MISC. CHEMISTRY Hold Green Top SPECIMEN DISCARDED AFTER 1 WEEK ()?? 06/13/2023 20:30 Hold Gel Top SPECIMEN DISCARDED AFTER 1 WEEK ()?? 06/13/2023 20:30 ?? TOXICOLOGY/TDM Ethanol, Serum or Plasma 209 mg/dL (Abnormal)?? 06/13/2023 16:24 Salicylate Level <0.3 mg/dL (Low)?? 06/13/2023 16:24 Barbiturate Screen, Urine POSITIVE (Abnormal)?? 06/13/2023 20:45 Cannabinoid Screen, Urine POSITIVE (Abnormal)?? 06/13/2023 20:45 Cocaine Metabolite Screen, Urine NONE DETECTED ()?? 06/13/2023 20:45 Benzodiazepine Screen, Urine NONE DETECTED ()?? 06/13/2023 20:45 Amphetamine Screen, Urine NONE DETECTED ()?? 06/13/2023 20:45 Opiate Screen, Urine NONE DETECTED ()?? 06/13/2023 20:45 Acetaminophen Level <5 mg/L (Low)?? 06/13/2023 16:24 ? 32minutes spent on discharge Patient Care team information Care Team Personnel Name: Radha Vasquez RN Position: [facility] RN Supv Member Role: Primary Care Nurse Name: Destiny Cortes RN Position: [facility] RN Member Role: Primary Care Nurse Name: Debbie Braun RN Position: [facility] SN RN Member Role: Primary Care Nurse Name: Mike Franks MD Position: [facility] Outreach Member Role: PCP Address: Address: [address] [place] [address] Lucille Franks MD [place], [place] [address] Name: Liliam Zhang RN Position: [facility] RN Member Role: Primary Care Nurse Name: Lexi Rodriguez RN Position: [facility] RN Member Role: Primary Care Nurse Name: Jake MUÑIZ Christy Position: [facility] RN Member Role: Primary Care Nurse Name: Yanely Hollis RN Position: [facility] RN Member Role: Primary Care Nurse Name: Hiwot Yepez RN Position: [facility] RN Member Role: Primary Care Nurse Name: Jeri Simmons RN Position: [facility] RN Member Role: Primary Care Nurse Name: Kailey Valerio Position: [facility] RN Member Role: Primary Care Nurse Name: Gladys Ramirez MD Position: [facility] Physician - Endocrinology Member Role: Lifetime Consulting Physician Name: Lorena Pascual RN Position: [facility] RN Member Role: Primary Care Nurse Name: Sharon Agosto LPN Position: [facility] RN Member Role: Primary Care Nurse Name: Elvi Olsen RN Position: [facility] RN Member Role: Primary Care Nurse Name: Keely Alcazar RN Position: [facility] RN Member Role: Primary Care Nurse Name: Norah Valdovinos RN Position: [facility] RN Supv Member Role: Primary Care Nurse Name: Liane Lee RN Position: [facility] RN Member Role: Primary Care Nurse Name: Nevin Rosenberg RN Position: [facility] RN Member Role: Primary Care Nurse Name: Suzette Goodrich RN Position: [facility] RN Member Role: Primary Care Nurse Name: Saskia Roach RN Position: [facility] RN Member Role: Primary Care Nurse Name: Carla Hdz RN Position: [facility] Hospital Dough Panner Member Role: Primary Care Nurse Name: Kelsey Murhpy RN Position: [facility] RN Member Role: Primary Care Nurse Name: Joseph Murdock RN Position: [facility] RN Member Role: Primary Care Nurse Name: Lien Mckeon RN Position: [facility] RN Member Role: Primary Care Nurse Name: Rocío FOSTER Attending Position: [facility] ED Medicine MD Name: Eligio Recinos Position: [facility] ED TA [facility] Member Role: Air Conditioning Technician Name: Emmanuelle Haq RN Position: [facility] ED RN W/OE and Tasks Member Role: Patient Care Provider Care Team Related Persons Name: FIDEL TIMMONS Address: [address] [address] Name: NAYELI ARRIAGA
--- OUTSIDE RECORDS SUMMARY | 2023-08-02 17:23 | XMS_ITS | Continuity of Care Document ---
Author Name Unknown Organization [facility] ter Address [address] [place] [id number] Care Team Providers Care Broadcast News Producer Name Role Phone Mike Franks MD Primary Care Physician Encounter [facility] Date(s): 02/13/22 - 02/16/[address] [address]- Encounter Diagnosis Seizure(Final) - 02/13/22 Discharge Disposition: A-D/C Home Attending Physician: Socorro Vasquez MD Admitting Physician: Becky Antonio MD Referring Physician: Not on Staff, Referring MD Allergies, Adverse Reactions, Alerts No Known Allergies Medications Acetaminophen Tablet 650 mg, Tablet, By Mouth, Every 4 hours, PRN for Pain , Mild, Temperature Greater than 100.5, Routine, 02/14/22 0:18:00 EDT Start Date: 02/14/22 Stop Date: 02/16/22 Status: Discontinued folic acid 1 mg oral tablet 1 mg, 1, tablet, By Mouth, Daily, # 30 tablet, Refills 0, Tot. Refills 0, Maintenance, 02/16/22 11:00:00 EDT, Route to Pharmacy Electronically, [facility], Partial fill upon patient request if the prescription is for a schedule II opioid... Start Date: 02/16/22 Stop Date: 03/18/22 Status: Ordered melatonin 3 mg oral tablet 1 tablet = 3 mg, By Mouth, Daily at bedtime, PRN Insomnia, for 30 days, # 30 tablet, 0 Refills, Acute 03/18/22 11:01:00 EDT, 02/16/22 11:01:00 EDT, Tablet, [facility], Partial fill uponpatient request if the prescription is for a schedu... Start Date: 02/16/22 Stop Date: 03/18/22 Status: Ordered multivitamin Vitamin B Complex oral tablet 1 tablet, By Mouth, Daily, # 30 tablet, 0 Refills, Maintenance, 01/28/21 13:19:00 EST, Tablet, [facility], Partial fill upon patient request [...] 02/16/22 11:01:00 EDT, Route to Pharmacy Electronically, [facility], Partial fill upon patient request [...] 02/16/22 11:00:00 EDT, Route to Pharmacy Electronically, [facility], Partial fill u... Start Date: 02/16/22 Stop Date: 03/18/22 Status: Ordered Problem List Condition Effective Dates Status Health Status Inform ant anxiety(Confirmed) Active Vital Signs Most recent to oldest [Reference Range]: 1 2 3 Height 158 cm (02/16/22 11:18 AM) 158 cm (02/16/22 6:26 AM) 158 cm (02/15/22 11:19 PM) Weight 63.5 kg (02/14/22 11:55 AM) Oxygen Saturation [94-100 %] 100 % (02/16/22 11:18 AM) 100 % (02/16/22 6:26 AM) 100 % (02/15/22 11:19 PM) Pulse Rate [55-90 bpm] 81 bpm (02/16/22 11:18 AM) 78 bpm (02/16/22:26 AM) 88 bpm (02/15/22 11:19 PM) Body Mass Index [18.5-24.99] 25.44 *H* (02/14/22 11:55 AM) Blood Pressure [90-138/55-84 mm Hg] 142/95mm Hg *H* (02/16/22 11:18 AM) 126/88mm Hg (02/16/22 6:26 AM) 141/97mm Hg *H* (02/15/22 11:19 PM) Respiratory Rate [16-30 br/min] 20 br/min (02/16/22 11:18 AM) 18 br/min (02/16/22:26 AM) 18 br/min (02/16/22 1:09 AM) Temperature [96.8-100.4 DegF] 98.4 DegF (02/16/22 11:18 AM) 97.4 DegF (02/16/22: AM) 98.9 DegF (02/15/22 11:19 PM) Mode of Delivery (Oxygen) Room air (02/16/22 11:18 AM) Room air (02/16/22 6:26 AM) Room air (02/15/22 11:19 PM) Blood pressure sites Arm, right (02/16/22 11:18 AM) Arm, left (02/16/22:26 AM) Arm, left (02/15/22 11:19 PM) Temperature Route Oral (02/16/22 11:18 AM) Oral (02/16/22 6:26 AM) Oral (02/15/22 11:19 PM) Dry Weight 63.5 kg (02/14/22 11:55 AM)
--- OUTSIDE RECORDS SUMMARY | 2023-08-02 17:23 | XMS_ITS | Continuity of Care Document ---
Author Name Unknown Organization [facility] ter Address [address] [place] [address]- Care Team Providers Care Parts Room Assistant Name Role Phone Mike Franks MD Primary Care Physician [phone] Encounter [facility] Date(s): 07/07/22 - 07/10/[address] [address]- Discharge Disposition: A-D/C Home Attending Physician: Alyssa WARD, Consuelo Caceres Admitting Physician: Tr Valente MD Referring Physician: Not on Staff, Referring MD Allergies, Adverse Reactions, Alerts No Known Allergies Medications Acetaminophen Tablet 650 mg, Tablet, By Mouth, Every 4 hours, PRN for Pain , Mild, Temperature Greater than 100.5, Routine, 07/07/22 9:59:00 EDT Start Date: 07/07/22 Stop Date: 07/11/22 Status: Discontinued folic acid 1 mg oral tablet 1 mg, 1, tablet, By Mouth, Daily, # 30 tablet, Refills 0, Tot. Refills 0, Maintenance, 06/18/22 10:50:00 EDT, Route to Pharmacy Electronically, [facility], Partial fill upon patient request if the prescription is for a schedule II opioid... Start Date: 06/18/22 Status: Ordered gabapentin 100 mg oral capsule 100 mg, 1, capsule, By Mouth, 3 times a day, # 90 capsule, Refills 0, Tot. Refills 0, Maintenance, 06/18/22 11:34:00 EDT, Route to Pharmacy Electronically, [facility], Partial fill uponpatient request if the prescription is for a schedu... Start Date: 06/18/22 Status: Ordered gabapentin 100 mg oral capsule 100 mg, Capsule, By Mouth, 07/10/22 15:00:00 EDT Start Date: 07/10/22 Stop Date: 07/10/22 Status: Completed LORazepam 1 mg oral tablet 1 tablet = 1 mg, By Mouth, Daily, PRN Other, for 3 days, severe withdrawal symptoms, # 3 tablet, 0 Refills, Acute 07/13/22 15:58:00 EDT, 07/10/22 15:58:00 EDT, [facility]/pharmacy #[id number], Partial fill upon patient request if the prescription is for a schedule... Start Date: 07/10/22 Stop Date: 07/13/22 Status: Ordered Multivitamin Tablet 1 tablet, By Mouth, Daily, 0 Refills, Maintenance, 07/10/22 16:01:00 EDT, Tablet, Partial fill uponpatient request if the prescription is for a schedule II opioid drug. Start Date: 07/10/22 Status: Ordered PHENobarbital 30 mg oral tablet = 30 mg, By Mouth, 2 times a day, # 6 tablet, 0 Refills, Maintenance, 07/10/22 15:57:00 EDT, Tablet, [facility]/pharmacy #[id number], Partial fill upon patient request if the prescription is for a schedule II opioid drug., 160, cm, 07/10/22 15:36:00 EDT, Height, 6... Start Date: 07/10/22 Stop Date: 07/13/22 Status: Ordered pyridoxine 50 mg oral tablet 50 mg, 1, tablet, By Mouth, Daily, for 30 days, # 30 tablet, Refills 0, Tot. Refills 0, Acute 07/18/22 10:50:00 EDT, 06/18/22 10:50:00 EDT, Route to Pharmacy Electronically, [facility],Partial fill upon patient request if the prescripti... Start Date: 06/18/22 Stop Date: 07/18/22 Status: Ordered thiamine 100 mg oral tablet 100 mg, 1, tablet, By Mouth, 2 times a day, for 30 days, # 60 tablet, Refills 0, Tot. Refills 0, Acute 08/09/22 15:57:00 EDT, 07/10/22 15:57:00 EDT, Route to Pharmacy Electronically, [facility]/pharmacy #[id number], Partial fill upon patient request if the prescri... Start Date: 07/10/22 Stop Date: 08/09/22 Status: Ordered venlafaxine 75 mg oral tablet 3 tablet = 225 mg, By Mouth, Daily, # 90 tablet, 0 Refills, Maintenance, 06/18/22 11:48:00 EDT, Tablet, [facility], Partial fill upon patient request if the prescription is for a schedule II opioid drug., 160, cm, 06/18/22 5:09:00 EDT, H... Start Date: 06/18/22 Status: Ordered Problem List Condition Effective Dates Status Health Status Inform ant anxiety(Confirmed) Active Vital Signs Most recent to oldest [Reference Range]: 1 2 3 Height 160 cm (07/10/22 3:36 PM) 160 cm (07/10/22 8:31 AM) 160 cm (07/10/22 12:09 AM) Weight 69 kg (07/08/22 11:20 AM) 67 kg (07/08/22 7:03 AM) 67 kg (07/08/22 1:00 AM) Oxygen Saturation [94-100 %] 99 % (07/10/22 3:36 PM) 100 % (07/10/22 8:31 AM) 100 % (07/10/22 12:09 AM) Pulse Rate [55-90 bpm] 98 bpm *H* (07/10/22 3:36 PM) 101 bpm *H* (07/10/22 8:31 AM) 97 bpm *H* (07/10/22 12:09 AM) Body Mass Index [18.5-24.99] 26.95 *H* (07/08/22 11:20 AM) 26.17 *H* (07/08/22 7:03 AM) 26.17 *H* (07/08/22 1:00 AM) Blood Pressure [90-138/55-84 mm Hg] 129/96mm Hg (07/10/22 3:36 PM) 123/91mm Hg (07/10/22 8:31 AM) 131/98mm Hg (07/10/22 12:09 AM) Respiratory Rate [16-30 br/min] 12 br/min *L* (07/10/22 3:36 PM) 18 br/min (07/10/22 3:23 PM) 18 br/min (07/10/22 9:27 AM) Temperature [96.8-100.4 DegF] 98.5 DegF (07/10/22 3:36 PM) 98.9 DegF (07/10/22 8:31 AM) 98.6 DegF (07/10/22 12:09 AM) Mode of Delivery (Oxygen) Room air (07/10/22 3:36 PM) Room air (07/10/22 8:31 AM) Room air (07/10/22 12:09 AM) Blood pressure sites Arm, left (07/10/22 3:36 PM) Arm, left (07/10/22 8:31 AM) Arm, right (07/10/22 12:09 AM) Temperature Route Oral (07/10/22 3:36 PM) Oral (07/10/22 8:31 AM) Oral (07/10/22 12:09 AM) Dry Weight 69 kg (07/08/22 11:20 AM) 67 kg (07/08/22 7:03 AM) 67 kg (07/08/22 1:00 AM) Weight Obtained Via Patient/family state d (07/06/22 10:29 PM) Dry Weight Obtained Via Patient/family s tated (07/06/22 10:29 PM)
--- OUTSIDE RECORDS SUMMARY | 2023-08-02 17:23 | XMS_ITS | Continuity of Care Document ---
Author Name Unknown Organization [facility] ter Address [address] [place] [address]- Care Team Providers Care Bolt Loader Name Role Phone Mike Franks MD Primary Care Physician [phone] Encounter [facility] Date(s): 06/13/23 - 06/13/[address] [address]- Discharge Disposition: A-D/C AMA Attending Physician: Dinesh Stahl MD Admitting Physician: Dinesh Stahl MD Referring Physician: Not on Staff, Referring [...] each, 0 Refills, Maintenance, 05/02/23 8:20:00 EDT, [id number], Partial fill upon patient request if the prescription is for aschedule II opioid drug., 160, cm, 04/04/23 19:43:0... Start Date: 05/02/23 Status: Ordered prazosin 1 mg oral capsule 3 mg, 3, capsule, By Mouth, Daily at bedtime, # 90 capsule, Refills 0, Tot. Refills 0, Maintenance,04/05/23 8:19:00 EDT, Route to Pharmacy Electronically, [facility]/pharmacy #[id number], Partial fill upon patient request if [...] Maintenance,04/05/23 8:20:00 EDT, Route to Pharmacy Electronically, [facility]/pharmacy #[id number], Partial fill upon patient request if the [...] recent to oldest [Reference Range]: 1 2 Height 160 cm (06/13/23 5:17 AM) Oxygen Saturation [94-100 %] 99 % (06/13/23 6:22 AM) 99 % (06/13/23 5:17 AM) Pulse Rate [55-90 bpm] 118 bpm *H* (06/13/23 6:22 AM) 118 bpm *H* (06/13/23 5:17 AM) Blood Pressure [90-138/55-84 mm Hg] 125/ 68mm Hg (06/13/23 6:22 AM) 124/89mm Hg (06/13/23 5:17 AM) Temperature [96.8-100.4 DegF] 98.4 DegF (06/13/23 5:17 AM) Mode of Delivery (Oxygen) Room air (06/13/23 6:22 AM) Room air (06/13/23 5:17 AM) Blood pressure sites Arm, right (06/13/23 6:22 AM) Arm, right (06/13/23 5:17 AM) Temperature Route Oral (06/13/23 5:17 AM) Dry Weight 68.5 kg (06/13/23 5:17 AM) Dry Weight Obtained Via Patient/family s tated (06/13/23 5:17 AM) Social History Social History Type Response Smoking Status Never (less than 100 in lifetime) entered on: 01/25/23 Sex Note * Abbi WARD, Zuri: PERFORM Event Display: Discharge/Transfer Note Hospital Authored Date: [id number] Patient: ??BEAUCHAMP, ALLYSSA ? Age:??32 Years?Sex:??Female?:??1990?? Patient Information Discharge Location: [facility] Primary Care Physician: Mike Franks MD Admit Date/Time: 06/13/23 07:37 Discharge Disposition Discharge Disposition: Home: No Services-- DISCHARGE AGAINST MEDICAL ADVICE Discharge Diagnosis ??etoh withdrawal hallucinations depression _ Discharge Medications BusPIRone (busPIRone 15 mg [...] (traZODone 100 mg oral tablet)?100?Milligram?1?tablet?By Mouth?Daily atbedtime ?? Medications Started n/a Medications Discontinued n/a Doses Changed n/a PCP Follow-Up/Heads-Up ?? Alcohol withdrawal Hx withdrawal seizures - OPTED TO LEAVE AGAINST MEDICAL ADVISE - return precautions were discussed - pt had DMC, discharge AMA - recommend outpatient f/u with PCP - diazepam 5mg x1 prior to DC; already recently discharged with mv,folate,pyridoxine,thiamine,psychmeds so no further rx at this time ?? Depression - denies SI/HI, has DMC - DC AMA - already recently discharged with mv,folate,pyridoxine,thiamine,psych meds so no further rx at this time ? Strongly recommend follow up with PCP after leaving. Return precautions were reviewed. Pt encouraged to return to ER if any concerns. Hospital Course 32 year old female with PMH alcohol use disorder, alcohol withdrawal seizures, depression who was recently discharged after being admitted treated on CIWA for concerns of etoh withdrawal and withdrawal seizure. ??Patient reports she returned for concerns??of visual hallucinations in setting of hx DTs and withdrawal seizures with prior withdrawals so was concerned.??Denies SI/HI. Appears c/w DTs. However sheis stressed about things going on at??home and despite medical advice to stay inpatient to get??through withdrawal safely opted to leave against medical advise. She demonstrated understanding??of risks of DTs/seizures/ with untreated withdrawal and still opted to leave stating she??has things she needs to take care of at home and plans to seek care at [facility] for detox.??She is A&Ox4.She is able to demonstrate understanding of instructions not to drive per [place] law for 6 months givenhx recent w/d seizure. She demonstrates understanding of return precautions including seizures/auras/hallucinations/wanting assistance for detox from etoh inpatient/etc. Attending MD also spoke with patient and felt she had DMC. Given dose of diazepam 5mg x1 prior to discharge AMA??for goal of self-tapering through acute withdrawal as much as possible. DDx: DTs/etoh withdrawal vs. psych (hallucinations) Pt is to follow up with PCP. ?? Objective ?? Alcohol withdrawal Hx withdrawal seizures - OPTED TO LEAVE AGAINST MEDICAL ADVISE - return precautions were discussed - pt had DMC, discharge AMA - recommend outpatient f/u with PCP - diazepam 5mg x1 prior to DC; already recently discharged with mv,folate,pyridoxine,thiamine,psychmeds so no further rx at this time ?? Depression - denies SI/HI, has DMC - DC AMA - already recently discharged with mv,folate,pyridoxine,thiamine,psych meds so no further rx at this time ? Strongly recommend follow up with PCP after leaving. Return precautions were reviewed. Pt encouraged to return to ER if any concerns. Vital Signs?? Temperature: 98.4 DegF (06/13/23 05:17:00) Temperature Route: Oral (06/13/23 05:17:00) Pulse Rate:??118 bpm??High (06/13/23 06:22:00) Systolic Blood Pressure: 125 mm Hg (06/13/23 06:22:00) Diastolic Blood Pressure: 68 mm Hg (06/13/23 06:22:00) Blood pressure sites: Arm, right (06/13/23 06:22:00) Mean Arterial Pressure: 101 mm Hg (06/13/23 05:17:00) Pulse Pressure: 57 mm Hg (06/13/23 06:22:00) Oxygen Saturation: 99 % (06/13/23 06:22:00) Mode of Delivery (Oxygen): Room air (06/13/23 06:22:00) Early Warning Score: 0 (06/12/23 11:41:20) ? . Physical Exam Vital Signs (24 hrs) Last Charted?? Minimum?? Maximum?? Temp?? I have read the above and understand it.?? 06/13/2023 07:31?? I have read the above and understand it.?? 06/13/2023 07:31 ?? I have read the above and understand it.?? 06/13/2023 07:31?? SBP?? 125?? 06/13/2023 06:22?? 124?? 06/13/2023 05:17 ?? 125?? 06/13/2023 06:22?? DBP?? 68?? 06/13/2023 06:22?? 68?? 06/13/2023 06:22 ?? H??89?? 06/13/2023 05:17? General Appearance: The patient is a??female who appears somewhat anxious. Eyes: EOMI. No scleral icterus. Cardiovascular: RRR S1 and S2 heard with no M/R/G. Respiratory: ??Breath sounds clear to auscultation bilaterally. GI: Soft. Nontender and nondistended. Normal bowel sounds present throughout abdomen. ??No rebound tenderness or other findings suggestive of an acute abdomen.?? MS: ??No BLE pitting edema. Skin:??No rashes seen on extremities. Neuro: ??No slurred speech. Moving all extremities spontaneously, nonfocal. Psych: Alert and oriented to self, situation, location, date. Somewhat anxious. ? VS - afebrile, stable on room air, tachy to 110s, normotensive. Labs - no leukocytosis, hb/hct wnl, diff unremarkable, lytes,renal function,LFTs unremarkable (AST 36 mildly elevated). Etoh level 214 elevated but lower than prior 360. Consultants n/a Follow-Up Appointments Added Follow Up ?Time Frame ?Comments Golden WARD, Mike?1-2 day: call to discuss follow up visit Patient Instructions Please return for reasons including but not limited to: hallucinations, thoughts of hurting yourself or someone else, wanting assistance with detox from alcohol inpatient, seizure. Post Discharge Care Discharge ?Discharge AMA, ??MUST get diazepam, sign AMA form, and get IV removed FIRST, ??06/13/23 9:47:00 EDT 60??minutes spent on discharge Patient Care team information Care Team Personnel Name: Radha Vasquez RN Position: [facility] RN Supv Member Role: Primary Care Nurse Name: Destiny Cortes RN Position: [facility] RN Member Role: Primary Care Nurse Name: Debbie Braun RN Position: [facility] SN RN Member Role: Primary Care Nurse Name: Mike Franks MD Position: [facility] Outreach Member Role: PCP Address: Address: [address] [place] [address] Mike Lucille Franks [place], [place] [address] Name: Liliam Zhang RN Position: [facility] RN Member Role: Primary Care Nurse Name: Lexi Rodriguez RN Position: [facility] RN Member Role: Primary Care Nurse Name: Christy Joseph RN Position: [facility] RN Member Role: Primary Care Nurse Name: Yanely Hollis RN Position: [facility] RN Member Role: Primary Care Nurse Name: Hiwot Yepez RN Position: [facility] RN Member Role: Primary Care Nurse Name: Jeri Simmons RN Position: [facility] RN Member Role: Primary Care Nurse Name: Kailey Vaelrio Position: [facility] RN Member Role: Primary Care Nurse Name: Gladys Ramirez MD Position: [facility] Physician - Endocrinology Member Role: Lifetime Consulting Physician Name: Lorena Pascual RN Position: [facility] RN Member Role: Primary Care Nurse Name: Sharon Agosto LPN Position: [facility] RN Member Role: Primary Care Nurse Name: Elvi Olsen RN Position: [facility] RN Member Role: Primary Care Nurse Name: Keely Alcazar RN Position: [facility] RN Member Role: Primary Care Nurse Name: Norah Valdovinos RN Position: [facility] RN Supv Member Role: Primary Care Nurse Name: Liane Lee RN Position: [facility] RN Member Role: Primary Care Nurse Name: Nevin Rosenberg RN Position: [facility] RN Member Role: Primary Care Nurse Name: Suzette Goodrich RN Position: [facility] RN Member Role: Primary Care Nurse Name: Saskia Roach RN Position: [facility] RN Member Role: Primary Care Nurse Name: Carla Hdz RN Position: [facility] Hospital Foster Parent Member Role: Primary Care Nurse Name: Kelsey Murphy RN Position: [facility] RN Member Role: Primary Care Nurse Name: Joseph Murdock RN Position: [facility] RN Member Role: Primary Care Nurse Name: Lien Mckeon RN Position: [facility] RN Member Role: Primary Care Nurse Name: *[facility], ED Attending Position: [facility] ED Attendings Patient Name: *INDERJIT, Inpt Attending Position: [facility] ED Medicine MD Name: Ashley Marroquin RN Position: [facility] ED RN W/OE and Tasks Member Role: Patient Care Provider Name: Johanne Allan Position: [facility] ED TA [facility] Member Role: Patient Care Provider Care Team Related Persons Name: FIDEL BEAUCHAMP Address: home [address] [place] [id number] Name: UNKNOWNNAYELI
--- OUTSIDE RECORDS SUMMARY | 2023-08-02 17:24 | XMS_ITS | Continuity of Care Document ---
Author Name Unknown Organization [facility] ter Address [address] [place] [address]- Care Team Providers Care Broadcast Designer Name Role Phone Mike Franks MD Primary Care Physician [id number] 08[facility] [address]- [facility] Discharge Disposition: A-D/C Walkout Attending Physician: Not [...]
--- OUTSIDE RECORDS SUMMARY | 2023-08-02 17:24 | XMS_ITS | Continuity of Care Document ---
Author Name Unknown Organization [facility] ter Address [address] [place] [address]- Care Team Providers Care Miniature Train Driver Name Role Phone Mike Franks MD Primary Care Physician Encounter [facility] Date(s): 03/24/22 - 03/29/[address] [address] Encounter Diagnosis Alcohol intoxication(Final) - 03/24/22 Alcohol abuse(Final) - 03/24/22 Alcohol abuse with withdrawal(Final) - 03/24/22 Discharge Disposition: A-D/C Home Attending Physician: Ana Luisa WARD, Laura Adkins Admitting Physician: Deonte Bhagat MD Referring Physician: Not on Staff, Referring MD Allergies, Adverse Reactions, Alerts No Known Allergies Medications acamprosate 333 mg oral delayed release tablet 2 tablet = 666 mg, By Mouth, 3 times a day, # 180 tablet, 0 Refills, Maintenance, 03/29/22 8:53:00 EDT, EC Tablet, [facility], Partial fill upon patient request if the prescription is for a schedule II opioid drug., 160, cm, 03/28/22 3:2... Start Date: 03/29/22 Stop Date: 04/28/22 Status: Ordered Acetaminophen Tablet 650 mg, Tablet, By Mouth, Every 4 hours, PRN for Pain , Mild, Temperature Greater than 100.5, Routine, 03/24/22 23:03:00 EDT Start Date: 03/24/22 Stop Date: 03/29/22 Status: Discontinued folic acid 1 mg oral tablet 1 mg, 1, tablet, By Mouth, Daily, # 30 tablet, Refills 0, Tot. Refills 0, Maintenance, 03/29/22 7:36:00 EDT, Route to Pharmacy Electronically, [facility], Partial fill upon patient request if the prescription is for a schedule II opioid... Start Date: 03/29/22 Stop Date: 04/28/22 Status: Ordered multivitamin Vitamin B Complex oral tablet 1 tablet, By Mouth, Daily, # 30 tablet, 0 Refills, Maintenance, 03/29/22 7:36:00 EDT, Tablet, [facility], Partial fill upon patient request if the prescription is for a schedule II opioid drug., 1 tablet By Mouth Daily,x30 days, 160, cm,... Start Date: 03/29/22 Stop Date: 04/28/22 Status: Ordered Neurontin 100 mg oral capsule 100 mg, 1, capsule, By Mouth, 3 times a day, # 90 capsule, Refills 0, Tot. Refills 0, Maintenance, 03/29/22 7:36:00 EDT, Route to Pharmacy Electronically, [facility], Partial fill upon patient request if the prescription is for a schedul... Start Date: 03/29/22 Stop Date: 04/28/22 Status: Ordered Neurontin 100 mg oral capsule 100 mg, Capsule, By Mouth, 03/29/22 9:00:00 EDT Start Date: 03/29/22 Stop Date: 03/29/22 Status: Completed thiamine 100 mg oral tablet 100 mg, 1, tablet, By Mouth, Daily, for 30 days, # 30 tablet, Refills 0, Tot. Refills 0, Acute 04/28/22 7:36:00 EDT, 03/29/22 7:36:00 EDT, Route to Pharmacy Electronically, [facility], Partial fill upon patient request if the prescriptio... Start Date: 03/29/22 Stop Date: 04/28/22 Status: Ordered Problem List Condition Effective Dates Status Health Status Inform ant anxiety(Confirmed) Active Vital Signs Most recent to oldest [Reference Range]: 1 2 3 Height 160 cm (03/28/22 3:22 AM) 160 cm (03/27/22 11:10 PM) 160 cm (03/27/22 8:11 PM) Weight 63 kg (03/25/22 6:55 PM) 64 kg (03/25/22 5:19 AM) 64 kg (03/24/22 6:55 PM) Oxygen Saturation [94-100 %] 100 % (03/29/22 5:00 AM) 99 % (03/28/22 9:00 PM) 100 % (03/28/22 3:00 PM) Pulse Rate [55-90 bpm] 79 bpm (03/29/22 5:00 AM) 89 bpm (03/28/22 9:00 PM) 85 bpm (03/28/22 3:00 PM) Body Mass Index [18.5-24.99] 24.61 (03/25/22 6:55 PM) 25 *H* (03/25/22 5:19 AM) Blood Pressure [90-138/55-84 mm Hg] 120/86mm Hg (03/29/22 5:00 AM) 128/84mm Hg (03/28/22 9:00 PM) 122/84mm Hg (03/28/22 3:00 PM) Respiratory Rate [16-30 br/min] 16 br/min (03/29/22 9:15 AM) 16 br/min (03/29/22 8:15 AM) 16 br/min (03/29/22 7:09 AM) Temperature [96.8-100.4 DegF] 98.1 DegF (03/29/22 5:00 AM) 98.1 DegF (03/28/22 9:00 PM) 97.6 DegF (03/28/22 3:00 PM) Liters per Minute 0 L/min (03/27/22 8:02 AM) 0 L/min (03/26/22 11:27 AM) 0 L/min (03/26/22 7:57 AM) Mode of Delivery (Oxygen) Room air (03/29/22 5:00 AM) Room air (03/28/22 9:00 PM) Room air (03/28/22 3:00 PM) Blood pressure sites Arm, left (03/29/22 5:00 AM) Arm, left (03/28/22 9:00 PM) Arm, left (03/28/22 3:00 PM) Temperature Route Oral (03/29/22 5:00 AM) Oral (03/28/22 9:00 PM) Temporal (03/28/22 3:00 PM) Dry Weight 138 kg (03/25/22 6:55 PM) 64 kg (03/25/22 5:19 AM) 64 kg (03/24/22 6:55 PM)
--- OUTSIDE RECORDS SUMMARY | 2023-08-02 17:24 | XMS_ITS | Continuity of Care Document ---
Author Name Unknown Organization [facility] ter Address [address] [place] [id number]- Care Team Providers Care Airline Managerial Supervisor Name Role Phone Mike Franks MD Primary Care Physician Encounter [facility] Date(s): 06/28/23 - 06/30/[address] [address]- Encounter Diagnosis Alcohol use disorder, severe, dependence(Final) - 06/28/23 Discharge Disposition: A-D/C AMA Attending Physician: Pillo WARD, Noor Admitting Physician: Harsha Miles MD Referring Physician: Not on Staff, Referring [...] 0 Refills, Maintenance, 06/26/23 11:20:00 EDT, Tablet, [facility]/pharmacy #[id number], Partial fill upon patient request if the prescription is for a schedule II opioid drug., 1 tablet By Mouth Daily,x30 days, 161, cm, 08/0... Start Date: 06/26/23 Stop Date: 07/26/23 Status: Ordered naltrexone 50 mg oral tablet 1 tablet = 50 mg, By Mouth, Daily, # 30 tablet, 1 Refills, Maintenance, 06/26/23 11:23:00 EDT, Tablet, [facility]/pharmacy #[id number], Partial fill upon patient request [...] List Condition Confirmation Course Effective Dates Status [facility] atus Informant anxiety Confirmed Active GERD without esophagitis Confirmed Active PCOS (polycystic ovarian syndrome) Confirmed Active Alcohol use disorder, severe, dependence Confirmed Active Severe recurrent major depression Confirmed Active Vital Signs Most recent to oldest [Reference Range]: 1 2 3 Height 160 cm (06/30/23 10:42 AM) 160 cm (06/30/23 5:27 AM) 160 cm (06/29/23 10:31 PM) Weight 71.8 kg (06/29/23 1:34 PM) Oxygen Saturation [94-100 %] 100 % (06/30/23 10:42 AM) 100 % (06/30/23 5:27 AM) 100 % (06/29/23 10:31 PM) Pulse Rate [55-90 bpm] 85 bpm (06/30/23 10:42 AM) 73 bpm (06/30/23 8:36 AM) 60 bpm (06/30/23 5:27 AM) Body Mass Index [18.5-24.99 kg/m2] 28.05 kg/m2 *H* (06/29/23 1:34 PM) Blood Pressure [90-138/55-84 mm Hg] 112/91mm Hg (06/30/23 10:42 AM) 139/97mm Hg *H* (06/30/23 8:36 AM) 126/75mm Hg (06/30/23 5:27 AM) Respiratory Rate [16-30 br/min] 16 br/min (06/30/23 10:42 AM) 18 br/min (06/30/23 8:36 AM) 18 br/min (06/30/23 5:27 AM) Temperature [96.8-100.4 DegF] 98.1 DegF (06/30/23 10:42 AM) 97.4 DegF (06/30/23 5:27 AM) 98.7 DegF (06/29/23 10:37 PM) Mode of Delivery (Oxygen) Room air (06/30/23 10:42 AM) Room air (06/30/23 5:27 AM) Room air (06/29/23 10:31 PM) Blood pressure sites Arm, left (06/30/23 10:42 AM) Arm, left (06/30/23 5:27 AM) Arm, left (06/29/23 10:31 PM) Temperature Route Oral (06/30/23 10:42 AM) Oral (06/30/23 5:27 AM) Oral (06/29/23 10:37 PM) Dry Weight 71.8 kg (06/29/23 1:34 PM) Social History Social History Type Response Smoking Status Never (less than 100 in lifetime) entered on: 01/25/23 Sex Admission evaluation note * Harsha Miles MD: PERFORM Event Display: Admission Note Authored Date: Patient: ??BEAUCHAMP, ALLYSSA ? Age:??32 Years?Sex:??Female?:??1990?? Chief Complaint/Reason for Consultation Pt arrives by EMS from home after having too much to drink. ??Requests detox. Seizures at home History of Present Illness 32 y/o F with past medical history of severe??alcohol use disorder with previous multiple hospitalization for??alcohol withdrawal, delirium??in March and May 2023 signed out AGAINST MEDICAL ADVICE, depression with prior suicide attempts with APTU hospitalization, anxiety, PCOS, GERD, recent??hospitalization for severe alcohol intoxication??requiring alcohol withdrawal??delirium??treatment??for a few days and discharge??2 days ago on??June 26, 2023??back to home??as per the request of the patient??presented back to the ED??with??seizures at home and requesting detox. Patient is a very poor historian, currently patient is extremely drowsy barely arousable on stimulation??and goes back to sleep again. Patient tells me that after returning back home she started to drink again, she used to drink almost 2??pints of vodka every day but??after returning home she has only been drinking mixed drink and 5shots of??vodka,??1-1/2 hours later of drinking??she had an episode of seizure when she fell on thefloor??and had generalized shaking??and urinated on herself, she had another episode of seizure??after some time which made her concerned so she??decided to come to the ED for further evaluation. In the ED??patient was??found to be initially awake and was started on CIWA??triggered protocol andwas given few doses of phenobarbital, patient denied any suicidal or homicidal ideation, hospitalist team was called for further management, ethanol level 79,??found to have elevated AST and alkaline phosphatase. Review of Systems Review of systems are limited due to altered mental status. Objective Vital Signs?? Temperature: 98.8 DegF (06/28/23 02:09:00) Temperature Route: Oral (06/28/23 02:09:00) Pulse Rate:??110 bpm??High (06/28/23 06:51:00) Respiratory Rate: 22 br/min (06/28/23 06:51:00) Systolic Blood Pressure: 118 mm Hg (06/28/23 06:51:00) Diastolic Blood Pressure: 74 mm Hg (06/28/23 06:51:00) Blood pressure sites: Arm, right (06/28/23 06:51:00) Mean Arterial Pressure: 100 mm Hg (06/28/23 02:09:00) Pulse Pressure: 44 mm Hg (06/28/23 06:51:00) Oxygen Saturation: 98 % (06/28/23 06:51:00) Mode of Delivery (Oxygen): Room air (06/28/23 06:51:00) Early Warning Score: 3 (06/28/23 12:41:14) ? Yvette Coma Scale Yvette Coma Score: 15 (06/28/23 02:09:00) Motor Response-Adult: Obeys commands (06/28/23 02:09:00) Response Eye Opening: Spontaneously (06/28/23 02:09:00) Verbal Response-Adult: Oriented and converses (06/28/23 02:09:00) ? Physical Exam Gen/BAG HANGER: Drowsy, arousable extremities and goes back to sleep again, not oriented to time and place, confused, spontaneously moving all 4 extremities HEENT: Moist oral and nasal mucosa,??no pallor, no icterus, no JVD CVs: S1-S2 present, regular rate and rhythm, no murmurs Chest: Bilateral air entry is present, clear to auscultation, no wheeze, no rhonchi Abdomen: Soft, nontender, nondistended, no organomegaly, bowel sounds are present Extremity: No peripheral edema, no varicose veins Skin: Normal Assessment/Plan Diagnoses Alcohol use disorder, severe, dependence ??(F10.20) ?? 32 y/o F with past medical history of severe??alcohol use disorder with previous multiple hospitalization for??alcohol withdrawal, delirium??in March and May 2023 signed out AGAINST MEDICAL ADVICE, depression with prior suicide attempts with APTU hospitalization, anxiety, PCOS, GERD, recent??hospitalization for severe alcohol intoxication??requiring alcohol withdrawal??delirium??treatment??for a few days and discharge??2 days ago on??June 26, 2023??back to home??as per the request of the patient??presented back to the ED??with??seizures at home and requesting detox: ?? Problem list: ?Severe alcohol dependence and??seizure ?History of recent hospitalization for??severe alcohol intoxication treated with alcohol withdrawal delirium and discharged on??June 26, 2023 ?Alcoholic hepatitis ?History of??generalized anxiety disorder/severe depression with prior suicidal attempts ?History of PCOS ??? History of GERD ??? History of cannabinoid abuse ?? Management plan: 1. ??Severe alcohol dependence and seizure: This patient presented to the hospital after sustaining 2 episode of seizure at home ??? Patient tells me that she started drinking again after being discharged from the hospital and had mixed drinks??and 5 shots of??vodka??and 1-1/2 hours later??she had seizures??she is used to drink approximately 2 pints of??vodka every day ?I am not sure if this is alcohol withdrawal seizures, patient was not requiring any phenobarbital or Ativan at least 24 hours before being discharged from the hospital and was seizure-free ?Ethanol level 78 ?Patient already received phenobarbital dose in the ER ??? Continue CIWA triggered protocol??with Ativan as needed ??? Continue thiamine, folic acid, pyridoxine ?? 2.?? Alcoholic hepatitis: ?LFTs are slightly elevated AST and alkaline phosphatase ?Continue to monitor ?? 3.?? History of generalized anxiety disorder/depression: This patient is supposed to be on??Lexapro 5 mg daily but patient has not been taking it ??? Hold it for now ?? 4.?? History of GERD: ??? Patient takes??on trazodone at home ?? 5.?? DVT prophylaxis:??Lovenox subcutaneous ?? CODE STATUS: Full code ?? Total time spent in the care of patient is more than??70 minutes, more than 50% of the time was spent [id number] with the patient. ?? Histories Allergies Allergies ?(Active and Proposed [...] Never (less than 100 in lifetime). ? Psychosocial History ? Family History No family history recorded. ? History No previous pregnancies history have been recorded ?? Medications Home Medications Escitalopram (escitalopram 5 mg oral tablet)?1?tab(s)?5?Milligram?By Mouth?Daily in AM Folic Acid (folic acid 1 mg oral tablet)?1?Milligram?By Mouth?Daily HydrOXYzine (hydrOXYzine pamoate 50 mg oral capsule)?1?capsule?50?Milligram?By Mouth?2 times a day?as needed?Anxiety moxifloxacin ophthalmic (moxifloxacin 0.5% ophthalmic solution)?1?Drops?Eyes, Both?4 times a day?for 7?Days Multivitamin (multivitamin Multiple Vitamins oral tablet)?1?tab(s)?By Mouth?Daily?for 30?Days Naltrexone (naltrexone 50 mg oral tablet)?1?tab(s)?50?Milligram?By Mouth?Daily?for 30?Days Thiamine (thiamine 100 mg oral tablet)?100?Milligram?By Mouth?2 times a day Trazodone (traZODone 100 mg oral tablet)?TAKE ONE AND ONE HALF (1.5) TABLETS BY MOUTH AT BEDTIME ? Inpatient Medications Medications (13) Active SCHEDULED: (6) Folic Acid 1 mg Tablet (Folic Acid Tablet) ??1 mg, By Mouth, Daily Moxifloxacin 0.5% Ophthalmic Solution (3 mL) (Moxifloxacin 0.5% Ophth) ??1 drops, Eyes, Both, 4 times a day Multivitamin Tablet ??1 tablet, By Mouth, Daily NaCl 0.9% Flush 3ml (NaCL 0.9% Flush) ??3 mL, IV Push, Every 8 hours Pyridoxine 50 mg Tablet (Pyridoxine Tablet) ??50 mg, By Mouth, Daily Thiamine 100 mg Tablet (Thiamine Tablet) ??100 mg, By Mouth, 2 times a day CONTINUOUS: (0) PRN: (7) Acetaminophen 325 mg Tablet (Acetaminophen Tablet) ??650 mg, By Mouth, Every 4 hours Melatonin 3 mg Tablet (Melatonin Tablet) ??3 mg, By Mouth, Daily at bedtime NaCl 0.9% Flush 3ml (NaCL 0.9% Flush) ??3 mL, IV Push, Every 8 hours Ondansetron 2mg/mL Inj (2mL Vial) (Ondansetron Inj) ??4 mg, IV Push, Every 4 hours Phenobarbital 130 mg/mL Inj (Phenobarbital Inj) ??260 mg 2 mL, IV Push, Once Phenobarbital 65 mg/mL Inj (Phenobarbital Inj) ??65 mg 1 mL, IV Push, Every 2 hours Senna 8.6 mg / Docusate 50 mg tablet (Docusate/Senna Tablet) ??1 tablet, By Mouth, 2 times a day ? Durable Medical Equipment Ambulatory devices needed: None (06/24/23) ? Results Recent Labs CHEM GENERAL Sodium 142 mmol/L ()?? 06/28/2023 11:48 Potassium 4.1 mmol/L ()?? 06/28/2023 11:48 Chloride 103 mmol/L ()?? 06/28/2023 11:48 Bicarbonate Level 23 mmol/L ()?? 06/28/2023 11:48 Anion Gap 16 ()?? 06/28/2023 11:48 Glucose Level 72 mg/dL ()?? 06/28/2023 11:48 BUN 7 mg/dL ()?? 06/28/2023 11:48 Creatinine-Blood 0.6 mg/dL ()?? 06/28/2023 11:48 Estimated GFR Creatinine 124 ML/MIN/1.73 M2 ()?? 06/28/2023 11:48 Calcium 9.4 mg/dL ()?? 06/28/2023 11:48 Magnesium 1.6 mg/dL ()?? 06/28/2023 11:48 Protein, Total 7.2 Gm/dL ()?? 06/28/2023 11:48 Albumin 4.4 Gm/dL ()?? 06/28/2023 11:48 AG Ratio 1.6 ()?? 06/28/2023 11:48 Alkaline Phosphatase 113 units/L (High)?? 06/28/2023 11:48 AST (SGOT) 38 units/L (High)?? 06/28/2023 11:48 ALT (SGPT) 29 units/L ()?? 06/28/2023 11:48 Bilirubin, Total 0.2 mg/dL ()?? 06/28/2023 11:48 Lactate 1.7 mmol/L ()?? 06/28/2023 11:48 ?? ENDOCRINE/TUMOR MARKER Blood <1 mIU/mL ()?? 06/28/2023 02:34 ?? HEME OTHER Hold Lavender Top SPECIMEN DISCARDED AFTER 24 HOURS. ()?? 06/28/2023 02:35 Hold Blue Top SPECIMEN DISCARDED AFTER 4 HOURS. ()?? 06/28/2023 02:35 ?? MISC. CHEMISTRY Hold Green Top SPECIMEN DISCARDED AFTER 1 WEEK ()?? 06/28/2023 02:35 Hold Gel Top SPECIMEN DISCARDED AFTER 1 WEEK ()?? 06/28/2023 02:34 Hold Ugarte Top SPECIMEN DISCARDED AFTER 1 WEEK ()?? 06/28/2023 02:35 ?? TOXICOLOGY/TDM Ethanol, Serum or Plasma 78 mg/dL (Abnormal)?? 06/28/2023 11:48 ? Abnormal Labs ?? CHEM GENERAL ??AG Ratio ??1.6 () ??06/28/2023 11:48 ??AST (SGOT) ??38 units/L (High) ??06/28/2023 11:48 ??Alkaline Phosphatase ??113 units/L (High) ??06/28/2023 11:48 ??Estimated GFR Creatinine ??124 ML/MIN/1.73 M2 () ??06/28/2023 11:48 ? ENDOCRINE/TUMOR MARKER ??Blood ??<1 mIU/mL () ??06/28/2023 02:34 ? HEME OTHER ??Hold Blue Top ??SPECIMEN DISCARDED AFTER 4 HOURS. () ??06/28/2023 02:35 ??Hold Lavender Top ??SPECIMEN DISCARDED AFTER 24 HOURS. () ??06/28/2023 02:35 ? MISC. CHEMISTRY ??Hold Gel Top ??SPECIMEN DISCARDED AFTER 1 WEEK () ??06/28/2023 02:34 ??Hold Ugarte Top ??SPECIMEN DISCARDED AFTER 1 WEEK () ??06/28/2023 02:35 ??Hold Green Top ??SPECIMEN DISCARDED AFTER 1 WEEK () ??06/28/2023 02:35 ? TOXICOLOGY/TDM ??Ethanol, Serum or Plasma ??78 mg/dL (Abnormal) ??06/28/2023 11:48 ? Note: Critical results are displayed in red. ? Blood Glucose Trend Glucose Level: 72 mg/dL (06/28/23 11:48:00) ? CBC, CBC w/Diff?? No qualifying data available. ?? BMP, Mg, and Phos Anion Gap: 16 (11:48) Bicarbonate Level: 23 mmol/L (11:48) BUN: 7 mg/dL (11:48) Calcium: 9.4 mg/dL (11:48) Chloride: 103 mmol/L (11:48) Creatinine-Blood: 0.6 mg/dL (11:48) Estimated GFR Creatinine: 124 ML/MIN/1.73 M2 (11:48) Glucose Level: 72 mg/dL (11:48) Magnesium: 1.6 mg/dL (11:48) Potassium: 4.1 mmol/L (11:48) Sodium: 142 mmol/L (11:48) ?? Coagulation Profile?? No qualifying data available. ?? LFT Albumin: 4.4 Gm/dL (11:48) Alkaline Phosphatase:??113 units/L??High (11:48) ALT (SGPT): 29 units/L (11:48) AST (SGOT):??38 units/L??High (11:48) Bilirubin, Total: 0.2 mg/dL (11:48) ?? Urinalysis?? No qualifying data available. ? Blood Gases?? No qualifying data available. ?? Uric/LDH?? No qualifying data available. ? Hospital Progress note * Viviana Patterson RN: VERIFY, PERFORM, SIGN Event Display: Progress Note Hospital Authored Date: [id number] Patient: ALLYSSA LAMAS Age: 32 years Sex: Female : 1990 Associated Diagnoses: None Author: Viviana Patterson RN Findings Narrative/Incidental Patient A/O x 4; has the capacity to make decisions; requested AMA paperwork and walked off unit; Md updated. . Discharge Information Case Management Discharge Plan : Case Management Discharge Plan Data 06/30/2023 12:53 EDT Discharge Level of Care at Discharge Left Against Medical Advice 06/26/2023 12:50 EDT Discharge Level of Care at Discharge Home/Retirement/Foster Care 06/26/2023 10:47 EDT Discharge Level of Care at Discharge Home/Retirement/Foster Care * Alejandra Justin: PERFORM, SIGN, VERIFY Event Display: Progress Note Hospital Authored Date: [id number] Patient: ALLYSSA BEAUCHAMP Age: 32 years Sex: Female : 1990 Associated Diagnoses: None Author: Alejandra Justin Findings Problem Related to Alteration in Comfort : Alteration in Comfort/new 06/29/2023 16:00 EDT Alteration in Comfort Related to Other: pain Goals & Outcomes: Comfort Pt will report acceptable level of comfort & pain control, Pt will state importance of adhering to pain strategy regime Interventions Implemented: Comfort Assess pain using appropriate pain scale/tools, Assess aggravating factors & prevent them accordingly, Assess alleviating factors & promote them accordingly Goals/Interventions, Comfort Yes Comfort, Problem Start 06/29/2023 16:40 Reviewed plan with, Comfort Patient Patient Progression, Comfort Pt progressing according to plan Comfort, Problem Ongoing Yes . Evaluation Pt admitted via stretcher this shift. AOx4. Mildly anxious. Medicated for headache with prn tylenol, and for nausea with ondansetron prn. Ciwa completed per orders, tremors to bilateral arms noted. PRN iv ativan given based on score. Bed alarm on. Seizure precautions in place. Oriented to room and call carranza. Able to make needs known.. * Pillo WARD, Noor: PERFORM Event Display: Progress Note Hospital Authored Date: [id number] Patient: ??BEAUCHAMP, ALLYSSA ? Age:??32 Years?Sex:??Female?:??1990?? Subjective patient was seen and??examined at bedside. - complaints of headache. denies nausea/ vomiting, tremors in hand noted. - CIWA score 6-9. ativan PRN being given. Review of Systems Objective ?? Intake/Output? 06/28 08:10 06/29 07:00 06/28 07:00 06/27 07:00 06/26 07:00 ?? 06/29 23:11 06/29 23:11 06/29 06:59 06/28 06:59 06/27 06:59 Intake ?911 ?911 ?0 ?0 ?0 Output ?0 ?0 ?0 ?0 ?0 Net Total ?911 ?911 ?0 ?0 ?0 ? Urine Count ?2 ?2 ?0 ?0 ?0 ?? Physical Exam ?CVs: S1-S2 present, regular rate and rhythm, no murmurs Chest: Bilateral air entry is present, clear to auscultation, no wheeze, no rhonchi Abdomen: Soft, nontender, nondistended, no organomegaly, bowel sounds are present Extremity: No peripheral edema, no varicose veins Skin: Normal Assessment/Plan Diagnoses Alcohol use disorder, severe, dependence ??(F10.20) ?? 32 y/o F with past medical history of severe??alcohol use disorder with previous multiple hospitalization for??alcohol withdrawal, delirium??in March and May 2023 signed out AGAINST MEDICAL ADVICE, depression with prior suicide attempts with APTU hospitalization, anxiety, PCOS, GERD, recent??hospitalization for severe alcohol intoxication??requiring alcohol withdrawal??delirium??treatment??for a few days and discharge??2 days ago on??June 26, 2023??back to home??as per the request of the patient??presented back to the ED??with??seizures at home and requesting detox: ?? Problem list: ?Severe alcohol dependence and??seizure ?History of recent hospitalization for??severe alcohol intoxication treated with alcohol withdrawal delirium and discharged on??June 26, 2023 ?Alcoholic hepatitis ?History of??generalized anxiety disorder/severe depression with prior suicidal attempts ?History of PCOS ??? History of GERD ??? History of cannabinoid abuse ?? Management plan: 1. ??Severe alcohol dependence and seizure: This patient presented to the hospital after sustaining 2 episode of seizure at home ??? Patient tells me that she started drinking again after being discharged from the hospital and had mixed drinks??and 5 shots of??vodka??and 1-1/2 hours later??she had seizures??she is used to drink approximately 2 pints of??vodka every day ?I am not sure if this is alcohol withdrawal seizures, patient was not requiring any phenobarbital or Ativan at least 24 hours before being discharged from the hospital and was seizure-free ?Ethanol level 78 ?Patient already received phenobarbital dose in the ER ??? Continue CIWA triggered protocol??with Ativan as needed ??? Continue thiamine, folic acid, pyridoxine ?? 06/29: patient was seen and??examined at bedside. - complaints of headache. denies nausea/ vomiting, tremors in hand noted. - CIWA score 6-9. ativan PRN being given. ?? 2.?? Alcoholic hepatitis: ?LFTs are slightly elevated AST and alkaline phosphatase ?Continue to monitor ?? 3.?? History of generalized anxiety disorder/depression: This patient is supposed to be on??Lexapro 5 mg daily but patient has not been taking it ??? Hold it for now ?? 4.?? History of GERD: ??? Patient takes??on trazodone at home ?? 5.?? DVT prophylaxis:??Lovenox subcutaneous ?? CODE STATUS: Full code Note * Pillo WARD, Noor: PERFORM Event Display: Discharge/Transfer Note Hospital Authored Date: Patient: ??ALLYSSA LAMAS ? Age:??32 Years?Sex:??Female?:??1990?? Patient Information Discharge Location: S2 Primary Care Physician: Mike Franks MD Admit Date/Time: 06/28/23 08:10 Discharge Disposition Discharge Disposition: left AMA.? Discharge Diagnosis Alcohol use disorder, severe, dependence (F10.20) ?? _ Discharge Medications Escitalopram (escitalopram 5 mg oral tablet)?1?tab(s)?5?Milligram?By Mouth?Daily in AM Folic Acid (folic acid 1 mg oral tablet)?1?Milligram?By Mouth?Daily HydrOXYzine (hydrOXYzine pamoate 50 mg oral capsule)?1?capsule?50?Milligram?By Mouth?2 times a day?as needed?Anxiety moxifloxacin ophthalmic (moxifloxacin 0.5% ophthalmic solution)?1?Drops?Eyes, Both?4 times a day?for 7?Days Multivitamin (multivitamin Multiple Vitamins oral tablet)?1?tab(s)?By Mouth?Daily?for 30?Days Naltrexone (naltrexone 50 mg oral tablet)?1?tab(s)?50?Milligram?By Mouth?Daily?for 30?Days Thiamine (thiamine 100 mg oral tablet)?100?Milligram?By Mouth?2 times a day Trazodone (traZODone 100 mg oral tablet)?TAKE ONE AND ONE HALF (1.5) TABLETS BY MOUTH AT BEDTIME ? Allergies Allergies ?(Active and Proposed Allergies Only) No Known Medication Allergies? (Severity: Unknown severity, Onset: Unknown) NKA? (Severity: Unknown severity, Onset: Unknown) ? Hospital Course Patient was seen and examined at bedside. -CIWA score this morning??9-10;??received IV Ativan. -Patient has been AOA x 4 . -Has had previous multiple admissions recently for alcohol withdrawal and leaving AMA. ?? -In the interim in afternoon patient wanted to leave AMA and signed paper and left AMA despite counselling. - had capacity to make decisions. -Social work and addiction team has had worked with patient. Patient has all resources for follow-up. ?? Objective Assessment and Plan Assessment:??32 y/o F with past medical history of severe alcohol use disorder with previous multiple hospitalization for alcohol withdrawal, delirium in March and May 2023 signed out AGAINST MEDICAL ADVICE, depression with prior suicide attempts with APTU hospitalization, anxiety, PCOS, GERD, recent hospitalization for severe alcohol intoxication requiring alcohol withdrawal delirium treatment for a few days and discharge 2 days ago on June 26, 2023 back to home as per the request of the patient presented back to the ED with seizures at home and requesting detox: ?? Problem list: ??? Severe alcohol dependence and seizure ??? History of recent hospitalization for severe alcohol intoxication treated with alcohol withdrawal delirium and discharged on June 26, 2023 ??? Alcoholic hepatitis ??? History of generalized anxiety disorder/severe depression with prior suicidal attempts ??? History of PCOS ??? History of GERD ??? History of cannabinoid abuse ?? Management plan: ??1. Severe alcohol dependence and seizure: ??This patient presented to the hospital after sustaining 2 episode of seizure at home ??? Patient tells me that she started drinking again after being discharged from the hospital and had mixed drinks and 5 shots of vodka and 1-1/2 hours later she had seizures she is used to drink approximately 2 pints of vodka every day ??? I am not sure if this is alcohol withdrawal seizures, patient was not requiring any phenobarbital or Ativan at least 24 hours before being discharged from the hospital and was seizure-free ??? Ethanol level 78 ??? Continue CIWA triggered protocol with Ativan as needed ??? Continue thiamine, folic acid, pyridoxine ?? 06/29: ??patient was seen and examined at bedside. ??- complaints of headache. denies nausea/ vomiting, tremors in hand noted. ??- CIWA score 6-9. ativan PRN being given. ?? 2. Alcoholic hepatitis: ??? LFTs are slightly elevated AST and alkaline phosphatase ??? Continue to monitor ?? 3. History of generalized anxiety disorder/depression: ??This patient is supposed to be on Lexapro 5 mg daily but patient has not been taking it ??? Hold it for now ?? 4. History of GERD: ??? Patient takes on trazodone at home ?? 5. DVT prophylaxis: Lovenox subcutaneous ?? CODE STATUS: Full code ? Vital Signs?? Temperature: 98.1 DegF (06/30/23 10:42:00) Temperature Route: Oral (06/30/23 10:42:00) Pulse Rate: 85 bpm (06/30/23 10:42:00) Respiratory Rate: 16 br/min (06/30/23 10:42:00) Systolic Blood Pressure: 112 mm Hg (06/30/23 10:42:00) Diastolic Blood Pressure:??91 mm Hg??High (06/30/23 10:42:00) Blood pressure sites: Arm, left (06/30/23 10:42:00) Mean Arterial Pressure: 98 mm Hg (06/30/23 10:42:00) Pulse Pressure: 21 mm Hg (06/30/23 10:42:00) Oxygen Saturation: 100 % (06/30/23 10:42:00) Mode of Delivery (Oxygen): Room air (06/30/23 10:42:00) Early Warning Score: 0 (06/30/23 13:00:31) ? . Physical Exam Pending Results Add On Lab Order ordered on 06/28/2023 Hold Lavender Tube (BB) ordered on 06/28/2023 Follow-Up Appointments Added Follow Up ?Time Frame ?Comments Mike Franks MD Post Discharge Care Discharge ?Discharge AMA, ??06/30/23 12:53:00 EDT Home Health Face to Face ^HomeHealthFTF Results Discharge Labs CHEM GENERAL Sodium 133 mmol/L ()?? 06/30/2023 00:52 Potassium 4.1 mmol/L ()?? 06/30/2023 00:52 Chloride 95 mmol/L (Low)?? 06/30/2023 00:52 Bicarbonate Level 21 mmol/L (Low)?? 06/30/2023 00:52 Anion Gap 17 ()?? 06/30/2023 00:52 Glucose Level 71 mg/dL ()?? 06/30/2023 00:52 BUN 4 mg/dL (Low)?? 06/30/2023 00:52 Creatinine-Blood 0.5 mg/dL ()?? 06/30/2023 00:52 Estimated GFR Creatinine 127 ML/MIN/1.73 M2 ()?? 06/30/2023 00:52 Calcium 9.1 mg/dL ()?? 06/30/2023 00:52 Phosphorus 3.4 mg/dL ()?? 06/29/2023 08:34 Magnesium 1.5 mg/dL (Low)?? 06/30/2023 00:52 Protein, Total 6.9 Gm/dL ()?? 06/29/2023 08:34 Albumin 4.2 Gm/dL ()?? 06/29/2023 08:34 AG Ratio 1.6 ()?? 06/29/2023 08:34 Alkaline Phosphatase 111 units/L (High)?? 06/29/2023 08:34 AST (SGOT) 34 units/L (High)?? 06/29/2023 08:34 ALT (SGPT) 23 units/L ()?? 06/29/2023 08:34 Bilirubin, Total 0.4 mg/dL ()?? 06/29/2023 08:34 Lactate 1.7 mmol/L ()?? 06/28/2023 11:48 ?? ENDOCRINE/TUMOR MARKER Blood <1 mIU/mL ()?? 06/28/2023 02:34 ? HEME OTHER Hold Lavender Top SPECIMEN DISCARDED AFTER 24 HOURS. ()?? 06/28/2023 02:35 Hold Blue Top SPECIMEN DISCARDED AFTER 4 HOURS. ()?? 06/28/2023 02:35 ?? MISC. CHEMISTRY Hold Green Top SPECIMEN DISCARDED AFTER 1 WEEK ()?? 06/28/2023 02:35 Hold Gel Top SPECIMEN DISCARDED AFTER 1 WEEK ()?? 06/28/2023 02:34 Hold Ugarte Top SPECIMEN DISCARDED AFTER 1 WEEK ()?? 06/28/2023 02:35 ? TOXICOLOGY/TDM Ethanol, Serum or Plasma 78 mg/dL (Abnormal)?? 06/28/2023 11:48 ? URINE OTHER Est Creatinine Clearance 133.57 mL/min ()?? 06/30/2023 03:13 ? VIROLOGY COVID-19 by RT-PCR NEGATIVE ()?? 06/28/2023 19:15 ? 25 minutes spent on discharge * Viviana Patterson RN: PERFORM Event Display: Discharge/Transfer Note Hospital Authored Date: [id number] Nursing Discharge Note Entered On: 06/30/2023 12:55 EDT Performed On: 06/30/2023 12:53 EDT by Viviana Patterson RN Nursing Discharge Note 2 Discharge Time : 06/30/2023 12:53 EDT Discharge Level of Care at Discharge : Left Against Medical Advice Patient Left Unit Via : Ambulatory Patient Accompanied Off Unit with : Other: patient ambulated off unit by herself DC Instructions Provided & Signed by Pt : No Patient Understands D/C Instructions : No Patient Instructions Discharge Signed : No Discharge Comments : patient left AMA; peripheral iv removed and Md notified. Did Pt have Specialty Bed or Wound Vac : No Viviana Patterson RN - 06/30/2023 12:53 EDT Patient Care team information Care Team Personnel Name: Radha Vasquez RN Position: [facility] RN Supv Member Role: Primary Care Nurse Name: Debbie Braun RN Position: [facility] SN RN Member Role: Primary Care Nurse Name: Cris Fonseca RN Position: [facility] RN Member Role: Primary Care Nurse Name: Mike Franks MD Position: [facility] Outreach Member Role: PCP Address: Address: [address] [place] [address] Mike Franks MD [address] Name: Liliam Zhang RN Position: [facility] RN Member Role: Primary Care Nurse Name: Lexi Rodriguez RN Position: [facility] RN Member Role: Primary Care Nurse Name: Jake MUÑIZ, Christy Position: [facility] RN Member Role: Primary Care Nurse Name: Yanely Hollis RN Position: [facility] RN Member Role: Primary Care Nurse Name: Hiwot Yepez RN Position: [facility] RN Member Role: Primary Care Nurse Name: Jeri Simmons RN Position: [facility] RN Member Role: Primary Care Nurse Name: Kailey Valerio Position: [facility] RN Member Role: Primary Care Nurse Name: Gladys Ramirez MD Position: [facility] Physician - Endocrinology Member Role: Lifetime Consulting Physician Name: Lorena Pascual RN Position: [facility] RN Member Role: Primary Care Nurse Name: Lashonda White RN Position: [facility] RN Member Role: Primary Care Nurse Name: Surendra TRUJILLO, Sharon Position: [facility] RN Member Role: Primary Care Nurse Name: Elvi Olsen RN Position: [facility] RN Member Role: Primary Care Nurse Name: Keely Alcazar RN Position: [facility] RN Member Role: Primary Care Nurse Name: Jozef Saldana RN Position: [facility] RN Member Role: Primary Care Nurse Name: Norah Valdovinos RN Position: [facility] RN Supv Member Role: Primary Care Nurse Name: Liane Lee RN Position: [facility] RN Member Role: Primary Care Nurse Name: Nevin Rosenberg RN Position: [facility] RN Member Role: Primary Care Nurse Name: Joann Drummond RN Position: [facility] RN Member Role: Primary Care Nurse Name: Suzette Goodrich RN Position: [facility] RN Member Role: Primary Care Nurse Name: Saskia Roach RN Position: [facility] RN Member Role: Primary Care Nurse Name: Carla Hdz RN Position: [facility] Hospital Software Project Engineer Member Role: Primary Care Nurse Name: Kelsey Murphy RN Position: [facility] RN Member Role: Primary Care Nurse Name: Joseph Murdock RN Position: [facility] RN Member Role: Primary Care Nurse Name: Alejandra Justin Position: [facility] RN Member Role: Primary Care Nurse Name: Lien Mckeon RN Position: [facility] RN Member Role: Primary Care Nurse Name: Rocío FOSTER Attending Position: [facility] ED Medicine MD Name: Suzette Covarrubias RN Position: [facility] ED RN W/OE and Tasks Member Role: Patient Care Provider Name: Vi Cancino RN Position: [facility] ED RN W/OE and Tasks Member Role: Patient Care Provider Name: Angeles Barber Position: [facility] ED TA [facility] Member Role: Glue Jointer Operator Care Team Related Persons Name: FIDEL BEAUCHAMP Address: [address] [address] Name: NAYELI ARRIAGA
--- OUTSIDE RECORDS SUMMARY | 2023-08-02 17:24 | XMS_ITS | Continuity of Care Document ---
Author Name Unknown Organization [facility] ter Address [address] [place] [id number] Care Team Providers Care Bead Flipper Name Role Phone Mike Franks MD Primary Care Physician Encounter [facility] Date(s): 01/19/23 - 01/25/[address] [address]- Encounter Diagnosis Overdose(Final) - 01/18/23 Discharge Disposition: Transfer to Psych Facility Attending Physician: Lane Mayorga MD Admitting Physician: Raciel Mccarthy MD Referring Physician: Not on Staff, Referring MD Allergies, Adverse Reactions, Alerts No Known Allergies Medications Ativan 1 mg oral tablet 1 tablet = 1 mg, By Mouth, 2 times a day, PRN Anxiety, 0 Refills, Maintenance, 01/25/23 14:14:00 EST, Tablet, Partial fill upon patient request if the prescription is for a schedule II opioid drug. Start Date: 01/25/23 Status: Ordered Augmentin 875 mg-125 mg oral tablet 1 tablet, By Mouth, Every 12 hours, for 2 days, # 4 tablet, 0 Refills, Acute 01/27/23 21:00:00 EST,01/25/23 21:00:00 EST, Tablet, [facility]/pharmacy #[id number], Partial fill upon patient request if the prescription is for a schedule II opioid drug., 160, cm, 03... Start Date: 01/25/23 Stop Date: 01/27/23 Status: Ordered benzonatate 200 mg oral capsule 1 capsule = 200 mg, By Mouth, 3 times a day, PRN Cough, 0 Refills, Maintenance, 01/25/23 14:15:00 EST, Capsule, Partial fill upon patient request if the prescription is for a schedule II opioid drug. Start Date: 01/25/23 Status: Ordered Chloraseptic Lozenge 1 lozenge, By Mouth, Every 3 hours, PRN Other, Sore Throat, 0 Refills, Maintenance, 01/25/23 14:15:00 EST, Lozenge, Partial fill upon patient request if the prescription is for a schedule II opioid drug. Start Date: 01/25/23 Status: Ordered diazepam 5 mg oral tablet 5 mg, 1, tablet, By Mouth, Every 24 hours, Refills 0, Maintenance, 01/25/23 14:14:00 EST, Partial fill upon patient request if the prescription is for a schedule II opioid drug. Start Date: 01/25/23 Status: Ordered folic acid 1 mg oral tablet 1 mg, 1, tablet, By Mouth, Daily, # 30 tablet, Refills 0, Tot. Refills 0, Maintenance, 06/18/22 10:50:00 EDT, Route to Pharmacy Electronically, [facility], Partial fill upon patient request if the prescription is for a schedule II opioid... Start Date: 06/18/22 Status: Ordered GuaiFENEsin /Dextromethorphan Liquid 10 mL, By Mouth, 2 times a day, PRN Cough, 0 Refills, Maintenance, 01/25/23 14:14:00 EST, Syrup, Partial fill upon patient request if the prescription is for a schedule II opioid drug. Start Date: 01/25/23 Status: Ordered hydrOXYzine hydrochloride 50 mg oral tablet TAKE 1 TABLET BY MOUTH THREE TIMES A DAY NEEDED Start Date: 01/18/23 Status: Ordered Lidocaine 2% Viscous Liquid 10 mL, Swish and Spit, 3 times a day, PRN Cough, 0 Refills, Maintenance, Solution Start Date: 01/25/23 Status: Ordered magnesium oxide 400 mg oral tablet TAKE 1 TABLET BY MOUTH EVERY DAY Start Date: 01/18/23 Status: Ordered melatonin 3 mg oral tablet = 6 mg, By Mouth, Daily at bedtime, PRN Sleep, 0 Refills, Maintenance, 01/25/23 14:14:00 EST, Tablet, Partial fill upon patient request if the prescription is for a schedule II opioid drug. Start Date: 01/25/23 Status: Ordered Milk of Magnesia Liquid 30 mL, By Mouth, 2 times a day, PRN Constipation, 0 Refills, Maintenance, 01/25/23 14:14:00 EST, Suspension, Partial fill upon patient request if the prescription is for a schedule II opioid drug. Start Date: 01/25/23 Status: Ordered Multivitamin Tablet 1 tablet, By Mouth, Daily, 0 Refills, Maintenance, 07/10/22 16:01:00 EDT, Tablet, Partial fill uponpatient request if the prescription is for a schedule II opioid drug. Start Date: 07/10/22 Status: Ordered pantoprazole 40 mg oral delayed release tablet TAKE 1 TABLET BY MOUTH EVERY DAY Start Date: 01/18/23 Status: Ordered Pyridoxine Tablet 50 mg, By Mouth, Daily, Refills 0, Maintenance, 01/25/23 14:14:00 EST, Partial fill upon patient request if the prescription is for a schedule II opioid drug. Start Date: 01/25/23 Status: Ordered sertraline 50 mg oral tablet 1 tablet = 50 mg, By Mouth, Daily, 0 Refills, Maintenance, 01/25/23 14:14:00 EST, Tablet, Partial fill upon patient request if the prescription is for a schedule II opioid drug. Start Date: 01/25/23 Status: Ordered thiamine 100 mg oral tablet 100 mg, 1, tablet, By Mouth, Daily, Refills 0, Maintenance, 01/25/23 14:14:00 EST, Partial fill upon patient request if the prescription is for a schedule II opioid drug. Start Date: 01/25/23 Status: Ordered Tylenol 325 mg oral tablet 650 mg, 2, tablet, By Mouth, Every 6 hours, PRN, Refills 0, Maintenance, Temperature, 01/25/23 14:15:00 EST, Partial fill upon patient request if the prescription is for a schedule II opioid drug. Start Date: 01/25/23 Status: Ordered Problem List Condition Confirmation Course Effective Dates Status [facility] Informant anxiety Confirmed Active Results Orders for Microbiology Reports Name Date Blood Culture 01/19/23 Blood Culture #2 01/19/23 Microbiology Reports TEST:Blood Culture STATUS:Auth (Verified) BODY SITE: SOURCE:Blood COLLECTED DATE/TIME:01/19/23 10:54 PM Blood Culture SPECIMEN DESCRIPTION : BLOOD NO SITE SPECIAL REQUESTS : NONE CULTURE : NO GROWTH 5 DAYS. REPORT STATUS : FINAL 01/25/2023 TEST:Blood Culture, Second Order STATUS:Auth (Verified) BODY SITE: SOURCE:Blood COLLECTED DATE/TIME:01/19/23 10:54 PM Blood Culture, Second Order SPECIMEN DESCRIPTION : BLOOD NO SITE SPECIAL REQUESTS : NONE CULTURE : NO GROWTH 5 DAYS. REPORT STATUS : FINAL 01/25/2023 Radiology Reports * Exam Date Time Procedure Performing Provider Status 01/20/23 9:[address] Head/Brain W/O Contrast Adia Kaplan; Auth (Verified) Notes: (CT Head/Brain W/O Contrast) Reason For Exam: seizures, fever;Other: RESULT: CT Head/Brain W/O Contrast CT Head/Brain W/O Contrast Reason: Other:; seizures, fever; Clinical Question(s): Infection Abscess; Order Comment:. TECHNIQUE: Incremental CT without contrast through the head was formatted in axial and coronal plane. Weight-based protocol using automatic tube modulation was performed to optimize scan parameters. CTDIvol Head: 40.73 mGy, DLP Head: 652 mGy*cm. COMPARISON: 09/28/2022. FINDINGS: BRAIN and EXTRA-AXIAL SPACES: No parenchymal hemorrhage, midline shift or mass effect. Ugarte-white matter differentiation is well preserved. No acute infarct. Ventricles, sulci and basilar cisterns are age appropriate. No white matter lesions. No subarachnoid hemorrhage, subdural or epidural collections. CALVARIUM, SKULL BASE AND SOFT TISSUES: No fractures or suspicious bony lesions. Moderate mucosal thickening and partial opacification of the bilateral ethmoid air cells anteriorlygreater than posteriorly, moderate mucosal thickening along the floor of the right frontal sinus and frontal nasal recess new compared to previous exam. Otherwise included paranasal sinuses and mastoid air cells are clear. Visualized orbits and globes are intact. The extracranial soft tissues are unremarkable. IMPRESSION: No acute process. New paranasal sinus disease. WSN: [id number] Ordering Physician: Earlene Merino Dictated By: Farshad Capellan MD Dictated Date/Time: 01/20/23 9:46 am Reviewed By: Farshad Capellan MD Signed By: Farshad Capellan MD Signed Date/Time: 01/20/23 9:46 am Transcribed By: JAMES Transcribed Date/Time: 01/20/23 9:43 am * Exam Date Time Procedure Performing Provider Status 01/19/23 9:47 PM Chest Portable Shy Velasco; Auth (Verified) Notes: (Chest Portable) Reason For Exam: hypoxia after seizure, ? aspiration;Other: RESULT: Chest Portable Chest Portable INDICATION: hypoxia after seizure, ? aspiration; Clinical Question(s): Aspiration / Aspiration COMPARISON: 01/18/2023 FINDINGS: LINES AND TUBES: None. LUNGS AND PLEURA: New airspace opacity in the medial right lower lung. No pleural effusion. No pneumothorax. HEART, MEDIASTINUM AND CAMILA: Heart is normal in size. Normal mediastinal and hilar contour. BONES AND SOFT TISSUES: No acute abnormality. IMPRESSION: New airspace opacity in the medial right lower lung could be due to aspiration, pneumonia, or atelectasis. WSN: [id number] Ordering Physician: Earlene Merino Dictated By: Hardik Bentley MD Dictated Date/Time: 01/19/23 9:51 pm Reviewed By: Hardik Bentley MD Signed By: Hardik Bentley MD Signed Date/Time: 01/19/23 9:51 pm Transcribed By: JAMES Transcribed Date/Time: 01/19/23 9:50 pm * Exam Date Time Procedure Performing Provider Status 01/18/23 11:14 PM Chest Portable Michi Carroll; Auth (Jerome ified) Notes: (Chest Portable) Reason For Exam: Tube Placement RESULT: Chest Portable Chest Portable REASON: Tube Placement; Clinical Question(s): Tube Placement / Tube Placement COMPARISON: Earlier today. FINDINGS: LINES AND TUBES: Endotracheal tube ends 3.5 cm above the pj. Enteric tube ends in the stomach. LUNGS AND PLEURA: Clear lungs. Normal pulmonary vascularity. No pleural effusion. No pneumothorax. HEART, MEDIASTINUM AND CAMILA: Heart is normal in size. Normal mediastinal and hilar contour. BONES AND SOFT TISSUES: No acute abnormality. IMPRESSION: Endotracheal and enteric tubes appear appropriately positioned. WSN: [id number] Ordering Physician: Shi Bowers Dictated By: Hardik Bentley MD Dictated Date/Time: 01/18/23 11:17 p Reviewed By: Hardik Bentley MD Signed By: Hardik Bentley MD Signed Date/Time: 01/18/23 11:17 pm Transcribed By: JAMES Transcribed Date/Time: 01/18/23 11:16 pm * Exam Date Time Procedure Performing Provider Status 01/18/23 10:20 PM Chest Portable Barbie Babb; Auth (Verified) Notes: (Chest Portable) Reason For Exam: overdose, ?aspiration;Other: RESULT: Chest Portable Chest Portable INDICATION: overdose, ?aspiration; Clinical Question(s): Aspiration / Aspiration COMPARISON: 09/28/2022 FINDINGS: LINES AND TUBES: None. LUNGS AND PLEURA: Clear lungs. Normal pulmonary vascularity. No pleural effusion. No pneumothorax. HEART, MEDIASTINUM AND CAMILA: Heart is normal in size. Normal mediastinal and hilar contour. BONES AND SOFT TISSUES: No acute abnormality. IMPRESSION: No evidence of acute abnormality. WSN: [id number] Ordering Physician: Shi Bowers Dictated By: Hardik Bentley MD Dictated Date/Time: 01/18/23 10:23 p Reviewed By: Hardik Bentley MD Signed By: Hardik Bentley MD Signed Date/Time: 01/18/23 10:23 pm Transcribed By: JAMES Transcribed Date/Time: 01/18/23 10:22 pm Vital Signs Most recent to oldest [Reference Range]: 1 2 3 Height 160 cm (01/25/23 2:14 PM) 160 cm (01/25/23 8:24 AM) 160 cm (01/25/23 2:17 AM) Weight 66.1 kg (01/25/23 6:01 AM) 66.7 kg (01/24/23 5:55 AM) 69.0 kg (01/23/23 5:30 AM) Oxygen Saturation [94-100 %] 99 % (01/25/23 2:14 PM) 96 % (01/25/23 8:24 AM) 95 % (01/25/23 2:17 AM) Pulse Rate [55-90 bpm] 99 bpm *H* (01/25/23 2:14 PM) 87 bpm (01/25/23 8:24 AM) 95 bpm *H* (01/25/23 2:17 AM) Body Mass Index [18.5-24.99 kg/m2] 28.36 kg/m2 *H* (01/19/23 12:57 AM) Blood Pressure [90-138/55-84 mm Hg] 122/84mm Hg (01/25/23 2:14 PM) 122/76mm Hg (01/25/23 8:24 AM) 122/79mm Hg (01/25/23 2:17 AM) Respiratory Rate [16-30 br/min] 18 br/min (01/25/23 2:14 PM) 18 br/min (01/25/23 8:24 AM) 18 br/min (01/25/23 2:17 AM) Temperature [96.8-100.4 DegF] 100.2 DegF (01/25/23 2:14 PM) 98.3 DegF (01/25/23 8:24 AM) 98.1 DegF (01/25/23 2:17 AM) Liters per Minute 2 L/min (01/21/23 12:00 AM) 2 L/min (01/20/23 10:00 PM) 2 L/min (01/20/23 8:00 PM) Mode of Delivery (Oxygen) Room air (01/25/23 2:14 PM) Room air (01/25/23 8:24 AM) Room air (01/25/23 2:17 AM) Blood pressure sites Arm, right (01/25/23 2:14 PM) Arm, right (01/25/23 8:24 AM) Arm, right (01/25/23 2:17 AM) Temperature Route Oral (01/25/23 2:14 PM) Temporal (01/25/23 8:24 AM) Temporal (01/25/23 2:17 AM) Dry Weight 66.9 kg (01/19/23 12:57 AM) Weight Obtained Via Bed scale (01/25/23 6:01 AM) Bed scale (01/24/23 5:55 AM) Bed scale (01/23/23 5:30 AM) Social History Social History Type Response Smoking Status Never (less than 100 in lifetime) entered on: 01/25/23 Sex Admission evaluation note * Juana Jimenez MD: PERFORM Event Display: Admission Note Authored Date: Patient: ??ALLYSSA TIMMONS ? Age:??32 Years?Sex:??Female?:??1990?? Chief Complaint/Reason for Consultation Suicide attempt History of Present Illness The patient is a 32-year-old female with a past medical history of alcohol use disorder, history ofalcohol withdrawal complicated by seizures, suicide attempts in the past, depression, and anxiety who presented to emergency department after her mother reported a suicide attempt with overdose with sertraline and quetiapine who was intubated for airway protection and encephalopathy requiring medical ICU admission who is now extubated and evaluated by psychiatry and is being transferred to the medical floor for further management. ?? History was obtained through chart review.?? According to patient's mother, the patient has been drinking alcohol throughout the day and sent her a text saying?? I am sorry, I love you .?? Patient'smother went into the room and found 2 empty bottles of sertraline and quetiapine which were recently filled for a month supply and had between 20 to 25 tablets each.?? Patient apparently had another suicide attempt approximately 1 week ago where she attempted to cut herself with goal of her ending her life but was stopped by her mother.?? On EMS arrival, patient was found to be altered, saturating well, tachycardic and was brought into the emergency department for further evaluation. ?? In the emergency department, patient was noted to be hypoxic to 84% with a depressed mental status and was not responsive to sternal rub.?? She was intubated for airway protection.?? On arrival, she was afebrile, heart rate 91, and blood pressure as low as 83/50.?? She was saturating 100% on ventilator support.?? Lab work was notable for a hemolyzed potassium, chloride level 97, anion gap metabolic acidosis with bicarbonate level of 17, glucose level 129, BUN 5, creatinine 0.6, lactate 4.9, NT proBNP 6, serum test negative, serum ethanol level 399, salicylate level less than 0.3, positive barbiturates, less than 5 acetaminophen level, influenza A/B, RSV, and COVID-19 testing negati ve.?? Urinalysis was not indicative of infection.?? Chest x-ray revealed no acute cardiopulmonary process.?? Patient received 2 L fluid in the emergency department and was transferred to the medical ICU for further care. ?? In the medical ICU, patient was intubated and sedated.?? Poison control was contacted and recommended serial EKGs with no role for bicarbonate given no sodium channel blockade.?? Patient was treated with magnesium and potassium replacement and was eventually weaned from sedation.?? She was following commands and extubated to nasal cannula.?? She is being monitored on [facility] protocol for alcohol withdrawal.?? She was evaluated by psychiatry service who recommended constant transportation planning technician and is unable to leave AGAINST MEDICAL ADVICE without psychiatry clearance.?? Patient was transferred to the medical floor for further management. Review of Systems Unable to obtain reliably due to altered mental status. Objective Vital Signs?? Temperature: 100.2 DegF (01/19/23 17:03:00) Temperature Route: Oral (01/19/23 17:03:00) Pulse Rate:??119 bpm??High (01/19/23 17:03:00) Heart Rate Monitored:??114 bpm??High (01/19/23 17:00:00) Respiratory Rate: 21 br/min (01/19/23 17:03:00) Systolic Blood Pressure: 132 mm Hg (01/19/23 17:03:00) Diastolic Blood Pressure:??92 mm Hg??High (01/19/23 17:03:00) Blood pressure sites: Arm, left (01/19/23 17:00:00) Mean Arterial Pressure: 77 mm Hg (01/19/23 00:57:00) Pulse Pressure: 31 mm Hg (01/19/23 17:00:00) Oxygen Saturation: 96 % (01/19/23 17:00:00) Mode of Delivery (Oxygen): Room air (01/19/23 17:00:00) FiO2: 30 % (01/19/23 14:00:00) End Tidal CO2: 36 mm Hg (01/19/23 15:00:00) Early Warning Score: 4 (01/19/23 17:53:00) ?? Physical Exam General:??No apparent distress. Well nourished, appears stated age. HEENT:??NCAT, EOMI, Sclera are anicteric. Moist oral mucosa. Neck:??Supple, No lymphadenopathy. No JVD. Cardiac:??Regular rate and rhythm, + S1, S2. No appreciable murmurs. PMI ND. Respiratory:??Clear to auscultation bilaterally without wheezes, rales or rhonchi. Abdomen:??Soft, nontender, non-distended, no abnormal BS, no HSM. Rectal exam deferred. Extremities:??No lower extremity edema noted.?? Neurology:??No focal neurological deficits.?? Psych:??Appropriate affect. Assessment/Plan The patient is a 32-year-old female with a past medical history of alcohol use disorder, history ofalcohol withdrawal complicated by seizures, suicide attempts in the past, depression, and anxiety who presented to emergency department after her mother reported a suicide attempt with overdose with sertraline and quetiapine who was intubated for airway protection and encephalopathy requiring medical ICU admission who is now extubated and evaluated by psychiatry and is being transferred to the medical floor for further management. ?? Acute toxic/metabolic??encephalopathy secondary to intentional overdose - quetiapine and sertraline Suicide attempt Acute alcohol intoxication History of??Alcohol use disorder, alcohol withdrawal and withdrawal seizures History of??depression/anxiety Patient presents with altered mental status in the setting of overdose on sertraline and quetiapinewith prior suicide attempts. Ethanol level 399, urine toxicology positive for barbiturates, negative for salicylate and acetaminophen. Patient required intubation for altered mental status and has since been extubated. Poison control was contacted in the medical ICU. Quetiapine peaks at 1.5 hours, t1/2 ~6 hours Sertraline: peak 4.5-8.5 hrs, t1/2 26-27 hours ?? Plan: - CIWA scale - Phenobarbital as per protocol - Continue thiamine, multivitamins, folic acid, and pyridoxine - Constant one-to-one transportation planning technician - Cannot leave AGAINST MEDICAL ADVICE as per psychiatry - Appreciate psychiatry recommendations ?? QTc prolongation Sinus Tachycardia HR 70-80's, SBP 90-130's (3/2) EKG at 10:00am, QTc 512, QRS 88 - received total 60mEq of potassium for K 3.5 ?? Plan: - Repeat serial EKG q4h, if remains stable over the next 24/hrs can decrease frequency - Continue lacquer coater ?? Hypokalemia Hypomagnesemia - resolved Elevated anion gap metabolic acidosis - resolved Lactic acidosis - improving BUN/Creatinine 5/0.6, UOP 85-150/hr, CK wnl ?? Plan: - Discontinue Zavala catheter - Potassium replacement - Goal Mg >2, K >4 ?? Acute hypoxemic Respiratory Failure requiring intubation and mechanical ventilation - resolved CXR: Clear lungs. Normal pulmonary vascularity. No pleural effusion. No pneumothorax Extubated today to nasal cannula ?? Plan: - Wean off supplemental oxygen as tolerated ?? Quality measures: DVT prophylaxis: Enoxaparin Diet: Regular after swallow eval Code: Full resuscitation ?? Patient discussed with attending physician, Dr. Merino Histories Allergies NKA? (Severity: Unknown severity, Onset: Unknown) ?? Past Medical History/Problem List Alcohol use disorder Alcohol withdrawal seizures in the past History of suicidal attempts Depression Anxiety ?? Past Surgical History No surgery history documented. ?? Social History Patient lives with her mother and brother. She drinks approximately 18 beers per day. History of marijuana use Denies history of other illicit drug use ?? Family History Mother has a history of depression Medications Home Medications BusPIRone (busPIRone 15 mg oral tablet)?1?tab(s)?15?Milligram?By Mouth?2 times a day Famotidine (famotidine 20 mg oral tablet)?20?Milligram?1?tablet?By Mouth?Once Folic Acid (folic acid 1 mg oral tablet)?1?Milligram?1?tablet?By Mouth?Daily HydrOXYzine (hydrOXYzine hydrochloride 50 mg oral tablet)?TAKE 1 TABLET BY MOUTH THREE TIMES A DAY NEEDED Magnesium Oxide (magnesium oxide 400 mg oral tablet)?TAKE 1 TABLET BY MOUTH EVERY DAY Multivitamin (Multivitamin Tablet)?1?tab(s)?By Mouth?Daily Pantoprazole (pantoprazole 40 mg oral delayed release tablet)?TAKE 1 TABLET BY MOUTH EVERY DAY Quetiapine (QUEtiapine 200 mg oral tablet)?TAKE 1 TABLET BY MOUTH EVERYDAY AT BEDTIME Sertraline (sertraline 100 mg oral tablet)?TAKE 1 TABLET BY MOUTH EVERY DAY ?? Inpatient Medications Medications (11) Active SCHEDULED: (6) Enoxaparin 40 mg Inj (Lovenox Inj) ??40 mg 0.4 mL, Subcutaneous Injection, Daily Folic Acid 1 mg Tablet (folic acid 1 mg oral tablet) ??1 mg, By Mouth, Daily Mineral Oil/Petrolatum Ophth Ointment (Mineral Oil /Petrolatum Ophth) ??1 application, Eyes, Both, Every 4 hours Multivitamin Tablet ??1 tablet, By Mouth, Daily Pyridoxine 50 mg Tablet (Pyridoxine Tablet) ??50 mg, By Mouth, Daily Thiamine 100 mg Tablet (thiamine 100 mg oral tablet) ??100 mg, By Mouth, Daily CONTINUOUS: (0) PRN: (5) Bisacodyl 10 mg Suppository (Bisacodyl Supp) ??10 mg 1 supp, Rectally, 2 times a day Docusate Sodium 10 mg/mL Liquid UD (Colace Liquid) ??100 mg 10 mL, By Mouth, 2 times a day Magnesium Hydroxide 8% Susp UD (Milk of Magnesia Liquid) ??30 mL, By Mouth, 2 times a day Phenobarbital 130 mg/mL Inj (Phenobarbital Inj) ??130 mg 1 mL, IV Push, Once Phenobarbital 65 mg/mL Inj (Phenobarbital Inj) ??65 mg 1 mL, IV Push, Every 2 hours Results Recent Labs BLOOD COUNT & DIFF WBC 4.7 k/mm3 ()?? 01/18/2023 22:06 RBC 4.84 m/mm3 ()?? 01/18/2023 22:06 Hgb 13.0 Gm/dL ()?? 01/18/2023 22:06 Hct 40.7 % ()?? 01/18/2023 22:06 MCV 84.1 femtoliters ()?? 01/18/2023 22:06 MCH 26.9 pg (Low)?? 01/18/2023 22:06 MCHC 31.9 g/dL (Low)?? 01/18/2023 22:06 Platelet Count 184 k/mm3 ()?? 01/18/2023 22:06 RDW-SD 50.3 femtoliters (High)?? 01/18/2023 22:06 MPV 10.4 femtoliters ()?? 01/18/2023 22:06 Nucleated RBC (Automated) 0.0 #/100 WBC'S ()?? 01/18/2023 22:06 Abs. NRBC 0.0 k/mm3 ()?? 01/18/2023 22:06 Abs. Neut 3.0 k/mm3 ()?? 01/18/2023 22:06 Abs. Lymph 1.4 k/mm3 ()?? 01/18/2023 22:06 Abs. [place] 0.3 k/mm3 (Low)?? 01/18/2023 22:06 Abs. Eo 0.0 k/mm3 ()?? 01/18/2023 22:06 Abs. Baso 0.0 k/mm3 ()?? 01/18/2023 22:06 Neut % 63.5 % ()?? 01/18/2023 22:06 Lymph % 28.7 % ()?? 01/18/2023 22:06 [place] % 6.6 % ()?? 01/18/2023 22:06 Eos % 0.2 % ()?? 01/18/2023 22:06 Baso % 0.6 % ()?? 01/18/2023 22:06 Hemoglobin (POC) POC Cartridge 13.6 Gm/dL ()?? 01/18/2023 21:56 Hematocrit (POC) POC Cartridge 40 % ()?? 01/18/2023 21:56 Imm Gran 0.4 % ()?? 01/18/2023 22:06 Abs. Imm Gran 0.0 k/mm3 ()?? 01/18/2023 22:06 ?? BLOOD GAS pH Venous (POC) POC Cartridge 7.47 (High)?? 01/18/2023 21:56 pCO2 Venous (POC) POC Cartridge 28.2 mm Hg (Low)?? 01/18/2023 21:56 pO2 Venous (POC) POC Cartridge 28 mm Hg (Low)?? 01/18/2023 21:56 Est Bicarbonate (POC) POC Cartridge 20.6 mmol/L (Low)?? 01/18/2023 21:56 % O2 Sat Venous (POC) POC Cartridge 59 ()?? 01/18/2023 21:56 Base Excess (POC) POC Cartridge NEGATIVE 3 ()?? 01/18/2023 21:56 Specimen Type - Blood Gas VENOUS ()?? 01/18/2023 21:56 pH, Venous 7.35 ()?? 01/18/2023 23:52 ?? CARDIAC CK, Total 102 units/L ()?? 01/19/2023 09:36 CK MB Confirmation - Quant 1.4 ng/mL ()?? 01/19/2023 09:36 Nt-Probnp 6 pg/mL ()?? 01/18/2023 22:06 High Sensitivity Troponin (HSTnT) HEMOLYZED ng/L ()?? 01/18/2023 22:06 ?? CHEM GENERAL Sodium 143 mmol/L ()?? 01/19/2023 09:36 Potassium 3.5 mmol/L (Low)?? 01/19/2023 09:36 Chloride 107 mmol/L ()?? 01/19/2023 09:36 Bicarbonate Level 23 mmol/L ()?? 01/19/2023 09:36 Anion Gap 13 ()?? 01/19/2023 09:36 Sodium (POC) POC Cartridge 134 mmol/L ()?? 01/18/2023 21:56 Potassium (POC) POC Cartridge 3.4 mmol/L (Low)?? 01/18/2023 21:56 Glucose Level 129 mg/dL (High)?? 01/18/2023 22:06 Glucose (POC) POC Cartridge 126 (High)?? 01/18/2023 21:56 Glucose, POC 83 mg/dL ()?? 01/19/2023 01:21 BUN 5 mg/dL (Low)?? 01/18/2023 22:06 Creatinine-Blood 0.6 mg/dL ()?? 01/18/2023 22:06 Estimated GFR Creatinine 122 ML/MIN/1.73 M2 ()?? 01/18/2023 22:06 Calcium 9.1 mg/dL ()?? 01/18/2023 22:06 Calcium, Ionized pH Corrected 1.08 mmol/L (Low)?? 01/19/2023 01:05 Ionized Calcium (POC) POC Cartridge 0.84 mmol/L (Critical)?? 01/18/2023 21:56 Phosphorus 2.9 mg/dL ()?? 01/19/2023 09:36 Magnesium 2.2 mg/dL ()?? 01/19/2023 09:36 Protein, Total 8.0 Gm/dL ()?? 01/18/2023 22:06 Albumin 4.6 Gm/dL ()?? 01/18/2023 22:06 AG Ratio 1.4 ()?? 01/18/2023 22:06 Alkaline Phosphatase 88 units/L ()?? 01/18/2023 23:53 AST (SGOT) 23 units/L ()?? 01/18/2023 23:53 ALT (SGPT) 8 units/L ()?? 01/18/2023 23:53 Bilirubin, Total 0.2 mg/dL ()?? 01/18/2023 22:06 Lactate 3.4 mmol/L (High)?? 01/19/2023 02:00 ?? ENDOCRINE/TUMOR MARKER Serum Qual NEGATIVE mIU/mL ()?? 01/18/2023 22:06 ?? MISC. CHEMISTRY Hold Green Top SPECIMEN DISCARDED AFTER 1 WEEK ()?? 01/18/2023 22:06 ?? TOXICOLOGY/TDM Ethanol, Serum or Plasma 399 mg/dL (Abnormal)?? 01/18/2023 22:06 Salicylate Level <0.3 mg/dL (Low)?? 01/18/2023 22:06 Barbiturate Screen, Urine POSITIVE (Abnormal)?? 01/18/2023 22:38 Cannabinoid Screen, Urine NONE DETECTED ()?? 01/18/2023 22:38 Cocaine Metabolite Screen, Urine NONE DETECTED ()?? 01/18/2023 22:38 Benzodiazepine Screen, Urine NONE DETECTED ()?? 01/18/2023 22:38 Amphetamine Screen, Urine NONE DETECTED ()?? 01/18/2023 22:38 Opiate Screen, Urine NONE DETECTED ()?? 01/18/2023 22:38 Acetaminophen Level <5 mg/L (Low)?? 01/18/2023 22:06 Phenobarb Level 8.2 mg/L (Low)?? 01/19/2023 09:36 ?? UA/URINALYSIS Appear/Color, Urine COLORLESS ()?? 01/18/2023 22:38 Specific [place], Urine 1.003 ()?? 01/18/2023 22:38 pH, Urine 5.5 ()?? 01/18/2023 22:38 Albumin, Urine NEGATIVE ()?? 01/18/2023 22:38 Glucose, Urine NEGATIVE ()?? 01/18/2023 22:38 Ketones, Urine NEGATIVE ()?? 01/18/2023 22:38 Bilirubin, Urine NEGATIVE ()?? 01/18/2023 22:38 Hemoglobin, Urine NEGATIVE ()?? 01/18/2023 22:38 Nitrite, Urine NEGATIVE ()?? 01/18/2023 22:38 Leukocyte, Urine NEGATIVE ()?? 01/18/2023 22:38 Urobilinogen NORMAL mg/dL ()?? 01/18/2023 22:38 WBC's, Urine NONE SEEN /HPF ()?? 01/18/2023 22:38 RBC's, Urine <1 /HPF ()?? 01/18/2023 22:38 Squamous Epith <1 /HPF ()?? 01/18/2023 22:38 Hold Urine Culture Testing available 48 hours from time of collection. ()?? 01/18/2023 22:38 ?? VIROLOGY Influenza A PCR NEGATIVE ()?? 01/18/2023 22:30 Influenza B PCR NEGATIVE ()?? 01/18/2023 22:30 RSV PCR NEGATIVE ()?? 01/18/2023 22:30 COVID-19 PCR Specimen Source NASAL ()?? 01/18/2023 22:30 COVID-19 PCR Result NEGATIVE ()?? 01/18/2023 22:30 ? * Earlene Merino DO: PERFORM Event Display: Admission Note Authored Date: Attending Attestation: I have seen and evaluated this patient??on January 19, 2023. ??I have discussedthe case and its management with the fellow and agree with the findings and plan as documented in the fellow??s note. ??I did perform/confirm the nolan elements of the history and physical exam, and I have personally reviewed the pertinent data and images.?? Patient noted??to have 3??sequential??seizures??around??8:30 PM to 9 PM. ??She was noted??to??become more tachycardic with these episodes,??aswell as more hypoxic??immediately after the episodes.?The patient??did??vomit??with the first??episode, and appears to have??bit??the inside cheek??with the second episode. ??She was given phenobarbital and Ativan??following her third seizure. ??She was noted to??drop her systolic blood pressures??to the low 80s, but this??responded to??500 cc bolus of IV fluid??with improvement??of her systolic blood pressure back to the low 100s. ??She was noted to be more obtunded following??the seizure episodes. ??ICU was consulted given some concern for??patient's ability to protect her airway. ??A chest x-ray was also obtained on this patient, which demonstrated??possible right sided??aspiration. ??She??did develop a fever??after her seizures to 101.5. ??Blood cultures were obtained??and urine analysis was also obtained,??which was fairly unremarkable. ??She will empirically be placed on Zosyn to cover for possible aspiration pneumonia.?Lactate level following her seizures was noted to be??elevated??at 12.9. ??We will plan on repeating labs in approximately 4 to 5 hours??and we will continue to trend the lactate level. ??ICU presently??feels the patient is okay to remain on intermediate care. ??Recommendation made by ICU to monitor for any signs/symptoms of serotonin syndrome such asclonus, hyperreflexia, or rigidity.Total time spent with patient and in coordination of care: including reviewing the chart/medical records, evaluating the patient, formulating and discussing the treatment plan, and documenting the findings and encounter: ??70 + min * Bela WARD, Niyah Miranda: PERFORM, MODIFY, MODIFY, MODIFY, MODIFY, MODIFY, MODIFY, MODIFY, MODIFY, MODIFY, MODIFY Event Display: Admission Note Authored Date: Patient: ??ALLYSSA TIMMONS ? Age:??32 Years?Sex:??Female?:??1990?? Chief Complaint/Reason for Consultation Suicide attempt/overdose History of Present Illness 32 years old female with past medical history significant for alcohol use disorder, alcohol withdrawal complicated by seizures, depression and anxiety who was brought via EMS after mother reported suicide attempt. ?? According to mother, patient texted her mom at 8:50 PM 'I'm sorry, I love you' when she went into her room, she found 2 empty bottles of sertraline and quetiapine.?? Sertraline 100 mg (20-25 tablets)quetiapine 200 mg (20-25 tablets).?? Mom reported that this is the second suicide attempt in the past 2 weeks.?? She has had a history of several suicide attempts when she attempted to cut herself aswell. ?? EMS found her to have a depressed mental status, normal oxygen saturation, tachycardic.?? They transported her to [facility] where she initially protecting her airway however then witnessed to have hypoxia to 84%, depressed mental status and eventually not responsive to sternal rub.?? Intubated for airwayprotection and now being transferred to medical ICU for close monitoring. ?? CXR with no acute abnormality.?? ET tube in place. Vitals significant for hypothermia 95.7, tachycardic to 110s and normotensive. Initial lab work shows CBC with no leukocytosis, K hemolyzed, sodium 134 with low bicarb 17 anion gap 20.?? Lactate 4.9.?? LFTs hemolyzed.?? Ionized calcium 0.84 Serum ethanol level 400, salicylate and acetaminophen negative.?? COVID PCR negative UA unremarkable. ?? Patient received 2 L LR boluses and 10 mEq potassium IV in ED Review of Systems Cannot be completed. ??Patient intubated Objective ? Vital Signs?? Temperature:??95.7 DegF??Low (01/18/23 22:00:00) Temperature Route: Rectal (01/18/23 22:00:00) Pulse Rate:??112 bpm??High (01/18/23 22:00:00) Systolic Blood Pressure: 136 mm Hg (01/18/23 22:00:00) Diastolic Blood Pressure:??92 mm Hg??High (01/18/23 22:00:00) Pulse Pressure: 44 mm Hg (01/18/23 22:00:00) Oxygen Saturation: 98 % (01/18/23 23:14:00) Mode of Delivery (Oxygen): Room air (01/18/23 22:00:00) FiO2: 50 % (01/18/23 23:14:00) End Tidal CO2: 40 mm Hg (01/18/23 23:14:00) Early Warning Score: 9 (01/18/23 23:40:39) ? Physical Exam Constitutional: Intubated and sedated Head: Normocephalic. Eyes: Pupils are equal, round and reactive to light. Extraocular muscles intact. Ear, Nose and Throat: Oropharynx clear, mucous membranes moist. Ears and nose without masses, lesions or deformities. Trachea midline. Neck: Supple, Full range of motion. Respiratory: Clear to auscultation. No wheezing, rales or rhonchi. Cardiovascular: S1 S2 regular. No murmurs, rubs or gallops. Gastrointestinal: Abdomen soft, non-tender, non-distended. Normal bowel sounds. Neurologic: Depressed mental status. ??Not opening eyes to verbal stimuli off sedation. Skin: Small bruise on the right knee??and chest wall Musculoskeletal:?? Normal range of motion. Psychiatric: Normal mood and affect Assessment/Plan 32 years old female with past medical history significant for alcohol use disorder, alcohol withdrawal complicated by seizures, depression and anxiety who was brought via EMS after mother reported suicide attempt (sertraline??and??quetiapine)??intubated and??ED for airway protection and encephalopathy, now being??admitted to MICU for further management and close monitoring. ?? Neuro Toxic metabolic encephalopathy Alcohol use disorder History of??withdrawal seizures History of??depression/anxiety Suicide attempt Patient has depressed mental status in setting of overdose on Seroquel (100 mg tablets/25???30) andquetiapine??(200 mg tablets/25???30)??she has had prior suicide attempts??including self-harm. Ethanol level??approximately 400. ??Unclear last drink. Serum ethanol reassuring positive for barbiturates, negative for salicylates and??acetaminophen Most??medicine reconciliation done from external??filling history. Quetiapine peaks at 1.5 hours, t1/2 ~6 hours Sertraline: peak 4.5-8.5 hrs, t1/2 26-27 hours? Plan ?Suicide precautions. ??Constant transportation planning technician ??? Psych consult once patient awake ?Toxicology??informed.?? Close monitoring??with??every 2 EKGs recommended.?? Both medications do not cause sodium channel blockade, they do not recommend??any bicarb infusions. ??? Intubated for airway protection ?Would hold any medications at this point ?Precedex for sedation with RASS goal 0 ??? Fentanyl pushes as needed for pain control ??? Continue monitoring for signs of withdrawal??from alcohol ?? Cardiovascular Concern for QTc prolongation ?? Plan ??? Every??4-hour EKG. ?Continuous QTc monitoring ?Monitor electrolytes and replete as appropriate. ??Goal for magnesium above 2 and potassium above 4 ?? Pulmonary Intubated for airway protection ?? Plan ?Trial PSV??tomorrow a.m. ?? Renal No acute concerns ?? Quality Metrics Code Status: FULL DVT prophylaxis:??Lovenox subcu Diet:??N.p.o. Family updated/HCP??mother??on 01/18 ?? The patient case was discussed with attending physician, Dr. Mccarthy ?? Niyah Cramer Internal Medicine Resident PGY3 ?? This note was dictated??by [email or web address] voice detection software,??for any errors??or clarifications, please do not hesitate to connect with the scribe.? Histories Allergies Allergies ?(Active and Proposed Allergies Only) No Known Medication Allergies? (Severity: Unknown severity, Onset: Unknown) NKA? (Severity: Unknown severity, Onset: Unknown) ? Past Medical History/Problem List Active Problems??(1) anxiety Depression Alcohol withdrawal seizures Alcohol use disorder ? Past Surgical History Not significant ?? Social History Alcohol Details:??Use: Current. ??Frequency: Daily. Substance Abuse Details:??Use: pt refuses to discuss. ? Family History No family history recorded. ? Medications Home Medications Aripiprazole (ARIPiprazole 5 mg oral tablet)?5?Milligram?1?tablet?By Mouth?Daily BusPIRone (busPIRone 7.5 mg oral tablet)?1?tab(s)?7.5?Milligram?By Mouth?3 times a day Clonidine (cloNIDine 0.1 mg oral tablet)?0.1?Milligram?1?tablet?By Mouth?Daily atbedtime Folic Acid (folic acid 1 mg oral tablet)?1?Milligram?1?tablet?By Mouth?Daily Multivitamin (Multivitamin Tablet)?1?tab(s)?By Mouth?Daily Prazosin (prazosin 1 mg oral capsule)?1?Milligram?1?capsule?By Mouth?2 times a day Sertraline (Zoloft 25 mg oral tablet)?1?tab(s)?25?Milligram?By Mouth?Daily ? Results Recent Labs BLOOD COUNT & DIFF WBC 4.7 k/mm3 ()?? 01/18/2023 22:06 RBC 4.84 m/mm3 ()?? 01/18/2023 22:06 Hgb 13.0 Gm/dL ()?? 01/18/2023 22:06 Hct 40.7 % ()?? 01/18/2023 22:06 MCV 84.1 femtoliters ()?? 01/18/2023 22:06 MCH 26.9 pg (Low)?? 01/18/2023 22:06 MCHC 31.9 g/dL (Low)?? 01/18/2023 22:06 Platelet Count 184 k/mm3 ()?? 01/18/2023 22:06 RDW-SD 50.3 femtoliters (High)?? 01/18/2023 22:06 MPV 10.4 femtoliters ()?? 01/18/2023 22:06 Nucleated RBC (Automated) 0.0 #/100 WBC'S ()?? 01/18/2023 22:06 Abs. NRBC 0.0 k/mm3 ()?? 01/18/2023 22:06 Abs. Neut 3.0 k/mm3 ()?? 01/18/2023 22:06 Abs. Lymph 1.4 k/mm3 ()?? 01/18/2023 22:06 Abs. [place] 0.3 k/mm3 (Low)?? 01/18/2023 22:06 Abs. Eo 0.0 k/mm3 ()?? 01/18/2023 22:06 Abs. Baso 0.0 k/mm3 ()?? 01/18/2023 22:06 Neut % 63.5 % ()?? 01/18/2023 22:06 Lymph % 28.7 % ()?? 01/18/2023 22:06 [place] % 6.6 % ()?? 01/18/2023 22:06 Eos % 0.2 % ()?? 01/18/2023 22:06 Baso % 0.6 % ()?? 01/18/2023 22:06 Hemoglobin (POC) POC Cartridge 13.6 Gm/dL ()?? 01/18/2023 21:56 Hematocrit (POC) POC Cartridge 40 % ()?? 01/18/2023 21:56 Imm Gran 0.4 % ()?? 01/18/2023 22:06 Abs. Imm Gran 0.0 k/mm3 ()?? 01/18/2023 22:06 ?? BLOOD GAS pH Venous (POC) POC Cartridge 7.47 (High)?? 01/18/2023 21:56 pCO2 Venous (POC) POC Cartridge 28.2 mm Hg (Low)?? 01/18/2023 21:56 pO2 Venous (POC) POC Cartridge 28 mm Hg (Low)?? 01/18/2023 21:56 Est Bicarbonate (POC) POC Cartridge 20.6 mmol/L (Low)?? 01/18/2023 21:56 % O2 Sat Venous (POC) POC Cartridge 59 ()?? 01/18/2023 21:56 Base Excess (POC) POC Cartridge NEGATIVE 3 ()?? 01/18/2023 21:56 Specimen Type - Blood Gas VENOUS ()?? 01/18/2023 21:56 ?? CARDIAC Nt-Probnp 6 pg/mL ()?? 01/18/2023 22:06 High Sensitivity Troponin (HSTnT) HEMOLYZED ng/L ()?? 01/18/2023 22:06 ?? CHEM GENERAL Sodium 134 mmol/L ()?? 01/18/2023 22:06 Potassium HEMOLYZED mmol/L ()?? 01/18/2023 22:06 Chloride 97 mmol/L (Low)?? 01/18/2023 22:06 Bicarbonate Level 17 mmol/L (Low)?? 01/18/2023 22:06 Anion Gap 20 (High)?? 01/18/2023 22:06 Sodium (POC) POC Cartridge 134 mmol/L ()?? 01/18/2023 21:56 Potassium (POC) POC Cartridge 3.4 mmol/L (Low)?? 01/18/2023 21:56 Glucose Level 129 mg/dL (High)?? 01/18/2023 22:06 Glucose (POC) POC Cartridge 126 (High)?? 01/18/2023 21:56 BUN 5 mg/dL (Low)?? 01/18/2023 22:06 Creatinine-Blood 0.6 mg/dL ()?? 01/18/2023 22:06 Estimated GFR Creatinine 122 ML/MIN/1.73 M2 ()?? 01/18/2023 22:06 Calcium 9.1 mg/dL ()?? 01/18/2023 22:06 Ionized Calcium (POC) POC Cartridge 0.84 mmol/L (Critical)?? 01/18/2023 21:56 Magnesium 1.7 mg/dL ()?? 01/18/2023 22:06 Protein, Total 8.0 Gm/dL ()?? 01/18/2023 22:06 Albumin 4.6 Gm/dL ()?? 01/18/2023 22:06 AG Ratio 1.4 ()?? 01/18/2023 22:06 Alkaline Phosphatase HEMOLYZED units/L ()?? 01/18/2023 22:06 AST (SGOT) HEMOLYZED units/L ()?? 01/18/2023 22:06 ALT (SGPT) HEMOLYZED units/L ()?? 01/18/2023 22:06 Bilirubin, Total 0.2 mg/dL ()?? 01/18/2023 22:06 Lactate 4.9 mmol/L (High)?? 01/18/2023 22:06 ?? ENDOCRINE/TUMOR MARKER Serum Qual NEGATIVE mIU/mL ()?? 01/18/2023 22:06 ?? MISC. CHEMISTRY Hold Green Top SPECIMEN DISCARDED AFTER 1 WEEK ()?? 01/18/2023 22:06 ?? TOXICOLOGY/TDM Ethanol, Serum or Plasma 399 mg/dL (Abnormal)?? 01/18/2023 22:06 Salicylate Level <0.3 mg/dL (Low)?? 01/18/2023 22:06 Acetaminophen Level <5 mg/L (Low)?? 01/18/2023 22:06 ?? UA/URINALYSIS Appear/Color, Urine COLORLESS ()?? 01/18/2023 22:38 Specific [place], Urine 1.003 ()?? 01/18/2023 22:38 pH, Urine 5.5 ()?? 01/18/2023 22:38 Albumin, Urine NEGATIVE ()?? 01/18/2023 22:38 Glucose, Urine NEGATIVE ()?? 01/18/2023 22:38 Ketones, Urine NEGATIVE ()?? 01/18/2023 22:38 Bilirubin, Urine NEGATIVE ()?? 01/18/2023 22:38 Hemoglobin, Urine NEGATIVE ()?? 01/18/2023 22:38 Nitrite, Urine NEGATIVE ()?? 01/18/2023 22:38 Leukocyte, Urine NEGATIVE ()?? 01/18/2023 22:38 Urobilinogen NORMAL mg/dL ()?? 01/18/2023 22:38 WBC's, Urine NONE SEEN /HPF ()?? 01/18/2023 22:38 RBC's, Urine <1 /HPF ()?? 01/18/2023 22:38 Squamous Epith <1 /HPF ()?? 01/18/2023 22:38 Hold Urine Culture Testing available 48 hours from time of collection. ()?? 01/18/2023 22:38 ?? VIROLOGY Influenza A PCR NEGATIVE ()?? 01/18/2023 22:30 Influenza B PCR NEGATIVE ()?? 01/18/2023 22:30 RSV PCR NEGATIVE ()?? 01/18/2023 22:30 COVID-19 PCR Specimen Source NASAL ()?? 01/18/2023 22:30 COVID-19 PCR Result NEGATIVE ()?? 01/18/2023 22:30 ? Abnormal Labs ?? BLOOD COUNT & DIFF ??Abs. Imm Gran ??0.0 k/mm3 () ??01/18/2023 22:06 ??Abs. [place] ??0.3 k/mm3 (Low) ??01/18/2023 22:06 ??Abs. NRBC ??0.0 k/mm3 () ??01/18/2023 22:06 ??Imm Gran ??0.4 % () ??01/18/2023 22:06 ??MCH ??26.9 pg (Low) ??01/18/2023 22:06 ??MCHC ??31.9 g/dL (Low) ??01/18/2023 22:06 ??Nucleated RBC (Automated) ??0.0 #/100 WBC'S () ??01/18/2023 22:06 ??RDW-SD ??50.3 femtoliters (High) ??01/18/2023 22:06 ? BLOOD GAS ??% O2 Sat Venous (POC) POC Cartridge ??59 () ??01/18/2023 21:56 ??Base Excess (POC) POC Cartridge ??NEGATIVE 3 () ??01/18/2023 21:56 ??Est Bicarbonate (POC) POC Cartridge ??20.6 mmol/L (Low) ??01/18/2023 21:56 ??Specimen Type - Blood Gas ??VENOUS () ??01/18/2023 21:56 ??pCO2 Venous (POC) POC Cartridge ??28.2 mm Hg (Low) ??01/18/2023 21:56 ??pH Venous (POC) POC Cartridge ??7.47 (High) ??01/18/2023 21:56 ??pO2 Venous (POC) POC Cartridge ??28 mm Hg (Low) ??01/18/2023 21:56 ? CARDIAC ??High Sensitivity Troponin (HSTnT) ??HEMOLYZED ng/L () ??01/18/2023 22:06 ? CHEM GENERAL ??AG Ratio ??1.4 () ??01/18/2023 22:06 ??Alkaline Phosphatase ??HEMOLYZED units/L () ??01/18/2023 22:06 ??Anion Gap ??20 (High) ??01/18/2023 22:06 ??BUN ??5 mg/dL (Low) ??01/18/2023 22:06 ??Bicarbonate Level ??17 mmol/L (Low) ??01/18/2023 22:06 ??Chloride ??97 mmol/L (Low) ??01/18/2023 22:06 ??Estimated GFR Creatinine ??122 ML/MIN/1.73 M2 () ??01/18/2023 22:06 ??Glucose (POC) POC Cartridge ??126 (High) ??01/18/2023 21:56 ??Glucose Level ??129 mg/dL (High) ??01/18/2023 22:06 ??Ionized Calcium (POC) POC Cartridge ??0.84 mmol/L (Critical) ??01/18/2023 21:56 ??Lactate ??4.9 mmol/L (High) ??01/18/2023 22:06 ??Potassium ??HEMOLYZED mmol/L () ??01/18/2023 22:06 ??Potassium (POC) POC Cartridge ??3.4 mmol/L (Low) ??01/18/2023 21:56 ? ENDOCRINE/TUMOR MARKER ?? Serum Qual ??NEGATIVE mIU/mL () ??01/18/2023 22:06 ? MISC. CHEMISTRY ??Hold Green Top ??SPECIMEN DISCARDED AFTER 1 WEEK () ??01/18/2023 22:06 ? TOXICOLOGY/TDM ??Acetaminophen Level ??<5 mg/L (Low) ??01/18/2023 22:06 ??Ethanol, Serum or Plasma ??399 mg/dL (Abnormal) ??01/18/2023 22:06 ??Salicylate Level ??<0.3 mg/dL (Low) ??01/18/2023 22:06 ? UA/URINALYSIS ??Albumin, Urine ??NEGATIVE () ??01/18/2023 22:38 ??Appear/Color, Urine ??COLORLESS () ??01/18/2023 22:38 ??Bilirubin, Urine ??NEGATIVE () ??01/18/2023 22:38 ??Glucose, Urine ??NEGATIVE () ??01/18/2023 22:38 ??Hemoglobin, Urine ??NEGATIVE () ??01/18/2023 22:38 ??Hold Urine Culture ??Testing available 48 hours from time of collection. () ??01/18/2023 22:38 ??Ketones, Urine ??NEGATIVE () ??01/18/2023 22:38 ??Leukocyte, Urine ??NEGATIVE () ??01/18/2023 22:38 ??Nitrite, Urine ??NEGATIVE () ??01/18/2023 22:38 ??Urobilinogen ??NORMAL mg/dL () ??01/18/2023 22:38 ? VIROLOGY ??COVID-19 PCR Result ??NEGATIVE () ??01/18/2023 22:30 ??COVID-19 PCR Specimen Source ??NASAL () ??01/18/2023 22:30 ??Influenza A PCR ??NEGATIVE () ??01/18/2023 22:30 ??Influenza B PCR ??NEGATIVE () ??01/18/2023 22:30 ??RSV PCR ??NEGATIVE () ??01/18/2023 22:30 ? Note: Critical results are displayed in red. ? * Raciel Mccarthy MD: PERFORM Event Display: Admission Note Authored Date: ?? Critical care attending: ?? Patient seen and examined multiple times during the night. I have reviewed the patient???s medical history, physical exam findings, and the assessment and plan as documented in the resident's ??note.I am in agreement with the plan of care as documented in the note with the following highlights andadditions: ?? Acute Toxic??encephalopathy secondary to Intentional overdose - quetiapine and sertraline Suicide attempt Acute alcohol intoxication Alcohol use disorder History of??withdrawal seizures History of??depression/anxiety Acute hypoxemic Respiratory Failure requiring intubation and mechanical ventilation? - admit to medical ICU for ventilatory support ?Suicide precautions. ??Constant transportation planning technician ??? Psych consult once patient is interactive and extubated ?poison control consultation - monitor QTc, ECG every 4 hrs for next 12-24 hrs, Monitor and replete electrolytes. M >2, K>4.? Intubated for airway protection - Fluid resuscitation given lactic acidosis ?Precedex for sedation with RASS goal 0 to -2 ? PRN Fentanyl??- goal CPOT <2 ??? thiamine, folate, multivitamin, monitor??for signs of alcohol withdrawal ?? Critical Care Time = 40??minutes ?? (This represents the total time I personally spent evaluating, managing and providing care exclusive of time spent for separately billable procedures.) EKG study * Event Display: EKG Authored Date: * Event Display: ECG 12-Lead Authored Date: Please click on pdf link to open report * Event Display: ECG 12-Lead Authored Date: Ventricular Rate: 150 BPM Atrial Rate: 150 BPM P-R Interval: 140 ms QRS Duration: 84 ms Q-T Interval: 256 ms QTC Calculation(Bazett): 404 ms P [place]: 69 degrees R [place]: 0 degrees T [place]: 50 degrees Sinus tachycardia Nonspecific ST abnormality Abnormal ECG When compared with ECG of 19-JAN-2023 13:59, No significant change was found Confirmed by ALL STAHL ([id number]) on 01/20/2023 9:15:38 AM Weaver: ALL STAHL * Event Display: ECG 12-Lead Authored Date: Please click on pdf link to open report * Event Display: ECG 12-Lead Authored Date: Ventricular Rate: 103 BPM Atrial Rate: 103 BPM P-R Interval: 152 ms QRS Duration: 84 ms Q-T Interval: 356 ms QTC Calculation(Bazett): 466 ms P [place]: 68 degrees R [place]: -1 degrees T [place]: 32 degrees Sinus tachycardia Otherwise normal ECG When compared with ECG of 19-JAN-2023 10:03, No significant change was found Confirmed by DONNA JACKSON MD ([id number]) on 01/20/2023 7:02:43 AM Weaver: DONNA JACKSON MD * Event Display: ECG 12-Lead Authored Date: Please click on pdf link to open report * Event Display: ECG 12-Lead Authored Date: Ventricular Rate: 80 BPM Atrial Rate: 80 BPM P-R Interval: 176 ms QRS Duration: 88 ms Q-T Interval: 444 ms QTC Calculation(Bazett): 512 ms P [place]: 77 degrees R [place]: 14 degrees T [place]: 36 degrees Normal sinus rhythm Prolonged QT Abnormal ECG When compared with ECG of 19-JAN-2023 05:40, No significant change was found Confirmed by DADA MELENDEZ ([id number]) on 01/19/2023 11:38:20 AM Weaver: DADA MELENDEZ Note * Event Display: Cardiac Rhythm Strips Authored Date: * Joanna Stahl RN: PERFORM Event Display: Discharge/Transfer Note Hospital Authored Date: Nursing Discharge Note Entered On: 01/25/2023 15:03 EST Performed On: 01/25/2023 15:01 EST by Joanna Stahl RN Nursing Discharge Note 2 Discharge Time : 01/25/2023 15:00 EST Discharge Level of Care at Discharge : Psychiatric Facility/Unit Patient Left Unit Via : Wheelchair Patient Accompanied Off Unit with : Responsible adult DC Instructions Provided & Signed by Pt : Yes Patient Understands D/C Instructions : Yes Patient Instructions Discharge Signed : Yes Discharge Comments : Pt medically cleared for discharge. Pt IV access removed. Pt understands discharge instructions and signed paperwork. Pt transported to [facility]2 unit for further treatment. Did Pt have Specialty Bed or Wound Vac : No Joanna Stahl RN - 01/25/2023 15:01 EST * Lane Mayorga MD: PERFORM Event Display: Discharge/Transfer Note Hospital Authored Date: [id number] Patient: ??TIMMONS, ALLYSSA ? Age:??32 Years?Sex:??Female?:??1990?? Patient Information Discharge Location: Primary Care Physician: Mike Franks MD Admit Date/Time: 01/19/23 00:43 Discharge Disposition Discharge Disposition: Transfer to Psychiatry [facility]2?? Discharge Diagnosis Alcohol withdrawal (F10.939) Major depression (F32.9) Marijuana use, episodic (F12.90) Overdose (T50.901A) Severe alcohol use disorder (F10.20) ?? _ Discharge Medications Acetaminophen (Tylenol 325 mg oral tablet)?650?Milligram?2?tablet?By Mouth?Every 6 hours?as needed?Temperature Amoxicillin-Clavulanate (Augmentin 875 mg-125 mg oral tablet)?1?tab(s)?By Mouth?Every 12 hours?for 2?Days Benzocaine Topical (Chloraseptic Lozenge)?1?lozenge(s)?By Mouth?Every 3 hours?as needed?Other?Sore Throat Benzonatate (benzonatate 200 mg oral capsule)?1?capsule?200?Milligram?By Mouth?3 times a day?as needed?Cough Diazepam (diazepam 5 mg oral tablet)?5?Milligram?1?tablet?By Mouth?Every 24 hours Folic Acid (folic acid 1 mg oral tablet)?1?Milligram?1?tablet?By Mouth?Daily Guaifenesin/Dextromethorphan (GuaiFENEsin /Dextromethorphan Liquid)?10?Milliliter?By Mouth?2 times a day?as needed?Cough HydrOXYzine (hydrOXYzine hydrochloride 50 mg oral tablet)?TAKE 1 TABLET BY MOUTH THREE TIMES A DAY NEEDED Lidocaine Topical (Lidocaine 2% Viscous Liquid)?10?Milliliter?Swish and Spit?3 times a day?as needed?Cough Lorazepam (Ativan 1 mg oral tablet)?1?tab(s)?1?Milligram?By Mouth?2 times a day?as needed?Anxiety Magnesium Oxide (magnesium oxide 400 mg oral tablet)?TAKE 1 TABLET BY MOUTH EVERY DAY Melatonin (melatonin 3 mg oral tablet)?6?[place]?By Mouth?Daily at bedtime?as needed?Sleep Milk of Magnesia (Milk of Magnesia Liquid)?30?Milliliter?By Mouth?2 times a day?as needed?Constipation Multivitamin (Multivitamin Tablet)?1?tab(s)?By Mouth?Daily Pantoprazole (pantoprazole 40 mg oral delayed release tablet)?TAKE 1 TABLET BY MOUTH EVERY DAY Pyridoxine (Pyridoxine Tablet)?50?Milligram?By Mouth?Daily Sertraline (sertraline 50 mg oral tablet)?1?tab(s)?50?Milligram?By Mouth?Daily Thiamine (thiamine 100 mg oral tablet)?100?Milligram?1?tablet?By Mouth?Daily ? Allergies Allergies ?(Active and Proposed Allergies Only) No Known Medication Allergies? (Severity: Unknown severity, Onset: Unknown) NKA? (Severity: Unknown severity, Onset: Unknown) ? Hospital Course ??32-year-old female with a past medical history of alcohol use disorder, history of alcohol withdrawal complicated by seizures, suicide attempts in the past, depression, and anxiety [facility] mother reported a suicide attempt with overdose with sertraline and quetiapine who was intubated for airway protection and encephalopathy requiring medical ICU admission who is now extubated (01/19/23) and evaluated by psychiatry and??was ??transferred to intercare for further management on 01/19/23. Hospital course complicated by alcohol withdrawal seizures (01/20/23 4 am. Patient continued on CIWA protocol for alcohol withdrawal. With continued medical management she f eels much better. She has been followed by psych team while in medicine. She is now medically readyfor discharge to Psych unit. ? Assessment and plan while int hospital: ?? Acute toxic/metabolic??encephalopathy secondary to intentional overdose - quetiapine and sertraline Suicide attempt Acute alcohol intoxication History of??Alcohol use disorder, alcohol withdrawal and withdrawal seizures History of??depression/anxiety Patient presents with altered mental status in the setting of overdose on sertraline and quetiapinewith prior suicide attempts. Ethanol level 399, urine toxicology positive for barbiturates, negative for salicylate and acetaminophen. Patient required intubation for altered mental status 01/18/23, extubated on 01/19/23 Poison control was contacted in the medical ICU; to note: Quetiapine peaks at 1.5 hours, t1/2 ~6 hours and Sertraline: peak 4.5-8.5 hrs, t1/2 26-27 hours; patient past this window seizure free for??past 48 hours; ??CT head neg>>likely alcohol withdrawal, ct head reviewed neg addiction medicine eval on 01/20>>reccs applied No longer scoring > 8 in CIWA. Clinically feeing much better. Still very anxious. Plan: - Continue diazepam 5 mg daily to?? 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 Would wait at least??5 days from her last fentanyl (or other opiate dose) to start naltrexone 50mg PO daily - Patient is now medically stable to transfer to psych unit ? Aspiration pneumonia: 01/19/23: was hypoxic after seizure, found to have new opacity in RLL in the chest x ray likely aspiration pneumonia was started on zosyn 01/20/23>>transitioned to unasyn on 01/22/23. Stopped IV antibiotics on 01/25/23. Continue Augmenting for 2 more days. Next dose is 01/25/23 2100. monitor fever, wbc curve, spo2 ?? Other problems that are now resolved: QTc prolongation: corrected Hypokalemia-resolved Hypomagnesemia - resolved Elevated anion gap metabolic acidosis - resolved Lactic acidosis - resolved Acute hypoxemic Respiratory Failure requiring intubation and mechanical ventilation CXR: Clear lungs. Normal pulmonary vascularity. No pleural effusion. No pneumothorax Extubated on 01/19/23 to nasal cannula now saturating well in RA. lidocaine salvadorean and swallow Objective Vital Signs?? Temperature: 100.2 DegF (01/25/23 14:14:00) Temperature Route: Oral (01/25/23 14:14:00) Pulse Rate:??99 bpm??High (01/25/23 14:14:00) Respiratory Rate: 18 br/min (01/25/23 14:14:00) Systolic Blood Pressure: 122 mm Hg (01/25/23 14:14:00) Diastolic Blood Pressure: 84 mm Hg (01/25/23 14:14:00) Blood pressure sites: Arm, right (01/25/23 14:14:00) Mean Arterial Pressure: 97 mm Hg (01/25/23 14:14:00) Pulse Pressure: 38 mm Hg (01/25/23 14:14:00) Oxygen Saturation: 99 % (01/25/23 14:14:00) Mode of Delivery (Oxygen): Room air (01/25/23 14:14:00) Early Warning Score: 1 (01/25/23 14:17:54) ? . Physical Exam General:??No apparent distress. Well nourished, appears stated age. HEENT:??NCAT, EOMI, Sclera are anicteric. Moist oral mucosa. Neck:??Supple, No lymphadenopathy. No JVD. Cardiac:??Regular rate and rhythm, + S1, S2. No appreciable murmurs. PMI ND. Respiratory:??Clear to auscultation bilaterally without wheezes, rales or rhonchi. Abdomen:??Soft, nontender, non-distended, no abnormal BS, no HSM. Rectal exam deferred. Extremities:??No lower extremity edema noted.?? Neurology:??No focal neurological deficits.?? Pending Results Add On Lab Order ordered on 01/19/2023 Add On Lab Order ordered on 01/20/2023 Add On Lab Order ordered on 01/22/2023 Blood Culture ordered on 01/19/2023 Blood Culture #2 ordered on 01/19/2023 COVID-19 (2019 Novel Coronavirus) PCR ordered on 01/19/2023 Hold Lavender Tube (BB) ordered on 01/18/2023 Sputum Culture w/ Gram Smear ordered on 01/20/2023 Follow-Up Appointments Added Follow Up ?Time Frame ?Comments Mike Franks MD?1 week: call to discuss follow up visit Post Discharge Care Diet: Regular Diet Code Status: ?? Full Resuscitation Prognosis: Fair Discharge ?01/25/23 14:18:00 EST Home Health Face to Face ^[facility] Results Discharge Labs BLOOD COUNT & DIFF WBC 7.3 k/mm3 ()?? 01/23/2023 02:59 RBC 4.00 m/mm3 (Low)?? 01/23/2023 02:59 Hgb 10.8 Gm/dL (Low)?? 01/23/2023 02:59 Hct 33.5 % (Low)?? 01/23/2023 02:59 MCV 83.8 femtoliters ()?? 01/23/2023 02:59 MCH 27.0 pg ()?? 01/23/2023 02:59 MCHC 32.2 g/dL (Low)?? 01/23/2023 02:59 Platelet Count 210 k/mm3 ()?? 01/23/2023 02:59 RDW-SD 51.9 femtoliters (High)?? 01/23/2023 02:59 MPV 9.8 femtoliters ()?? 01/23/2023 02:59 Nucleated RBC (Automated) 0.0 #/100 WBC'S ()?? 01/23/2023 02:59 Abs. NRBC 0.0 k/mm3 ()?? 01/23/2023 02:59 Abs. Neut 9.6 k/mm3 (High)?? 01/20/2023 00:50 Abs. Lymph 0.4 k/mm3 (Low)?? 01/20/2023 00:50 Abs. [place] 0.5 k/mm3 ()?? 01/20/2023 00:50 Abs. Eo 0.0 k/mm3 ()?? 01/20/2023 00:50 Abs. Baso 0.0 k/mm3 ()?? 01/20/2023 00:50 Neut % 90.8 % (High)?? 01/20/2023 00:50 Lymph % 3.5 % (Low)?? 01/20/2023 00:50 [place] % 4.5 % ()?? 01/20/2023 00:50 Eos % 0.0 % ()?? 01/20/2023 00:50 Baso % 0.2 % ()?? 01/20/2023 00:50 Hemoglobin (POC) POC Cartridge 13.6 Gm/dL ()?? 01/18/2023 21:56 Hematocrit (POC) POC Cartridge 40 % ()?? 01/18/2023 21:56 Imm Gran 1.0 % ()?? 01/20/2023 00:50 Abs. Imm Gran 0.1 k/mm3 ()?? 01/20/2023 00:50 ?? BLOOD GAS pH Venous (POC) POC Cartridge 7.47 (High)?? 01/18/2023 21:56 pCO2 Venous (POC) POC Cartridge 28.2 mm Hg (Low)?? 01/18/2023 21:56 pO2 Venous (POC) POC Cartridge 28 mm Hg (Low)?? 01/18/2023 21:56 Est Bicarbonate (POC) POC Cartridge 20.6 mmol/L (Low)?? 01/18/2023 21:56 % O2 Sat Venous (POC) POC Cartridge 59 ()?? 01/18/2023 21:56 Base Excess (POC) POC Cartridge NEGATIVE 3 ()?? 01/18/2023 21:56 Specimen Type - Blood Gas VENOUS ()?? 01/18/2023 21:56 pH, Venous 7.35 ()?? 01/18/2023 23:52 ?? CARDIAC CK, Total 107 units/L ()?? 01/20/2023 04:17 CK MB Confirmation - Quant 1.2 ng/mL ()?? 01/20/2023 04:17 Nt-Probnp 6 pg/mL ()?? 01/18/2023 22:06 High Sensitivity Troponin (HSTnT) HEMOLYZED ng/L ()?? 01/18/2023 22:06 ?? CHEM GENERAL Sodium 134 mmol/L ()?? 01/24/2023 05:26 Potassium 3.8 mmol/L ()?? 01/24/2023 05:26 Chloride 97 mmol/L (Low)?? 01/24/2023 05:26 Bicarbonate Level 23 mmol/L ()?? 01/24/2023 05:26 Anion Gap 14 ()?? 01/24/2023 05:26 Sodium (POC) POC Cartridge 134 mmol/L ()?? 01/18/2023 21:56 Potassium (POC) POC Cartridge 3.4 mmol/L (Low)?? 01/18/2023 21:56 Glucose Level 97 mg/dL ()?? 01/24/2023 05:26 Glucose (POC) POC Cartridge 126 (High)?? 01/18/2023 21:56 Glucose, POC 132 mg/dL (High)?? 01/19/2023 21:33 BUN 3 mg/dL (Low)?? 01/24/2023 05:26 Creatinine-Blood 0.5 mg/dL ()?? 01/24/2023 05:26 Estimated GFR Creatinine 127 ML/MIN/1.73 M2 ()?? 01/24/2023 05:26 Osmolality 268 mOs/kg (Low)?? 01/20/2023 04:17 Calcium 9.3 mg/dL ()?? 01/24/2023 05:26 Calcium, Ionized pH Corrected 1.12 mmol/L (Low)?? 01/19/2023 21:39 Ionized Calcium (POC) POC Cartridge 0.84 mmol/L (Critical)?? 01/18/2023 21:56 Phosphorus 2.2 mg/dL (Low)?? 01/20/2023 04:17 Magnesium 1.7 mg/dL ()?? 01/23/2023 02:59 Protein, Total 6.5 Gm/dL ()?? 01/21/2023 00:34 Albumin 3.8 Gm/dL ()?? 01/21/2023 00:34 AG Ratio 1.4 ()?? 01/21/2023 00:34 Alkaline Phosphatase 95 units/L ()?? 01/21/2023 00:34 AST (SGOT) 25 units/L ()?? 01/21/2023 00:34 ALT (SGPT) 11 units/L ()?? 01/21/2023 00:34 Bilirubin, Total 0.8 mg/dL ()?? 01/21/2023 00:34 Lactate 1.5 mmol/L ()?? 01/20/2023 04:17 ? ENDOCRINE/TUMOR MARKER Serum Qual NEGATIVE mIU/mL ()?? 01/18/2023 22:06 ? HEME OTHER Hold Lavender Top SPECIMEN DISCARDED AFTER 24 HOURS. ()?? 01/24/2023 05:26 ? MISC. CHEMISTRY Hold Green Top SPECIMEN DISCARDED AFTER 1 WEEK ()?? 01/19/2023 21:35 Procalcitonin 0.22 ng/mL ()?? 01/20/2023 00:50 Hold Gel Top SPECIMEN DISCARDED AFTER 1 WEEK ()?? 01/18/2023 22:06 ? TOXICOLOGY/TDM Ethanol, Serum or Plasma 399 mg/dL (Abnormal)?? 01/18/2023 22:06 Salicylate Level <0.3 mg/dL (Low)?? 01/18/2023 22:06 Barbiturate Screen, Urine POSITIVE (Abnormal)?? 01/18/2023 22:38 Cannabinoid Screen, Urine NONE DETECTED ()?? 01/18/2023 22:38 Cocaine Metabolite Screen, Urine NONE DETECTED ()?? 01/18/2023 22:38 Benzodiazepine Screen, Urine NONE DETECTED ()?? 01/18/2023 22:38 Amphetamine Screen, Urine NONE DETECTED ()?? 01/18/2023 22:38 Opiate Screen, Urine NONE DETECTED ()?? 01/18/2023 22:38 Acetaminophen Level <5 mg/L (Low)?? 01/18/2023 22:06 Phenobarb Level 11.1 mg/L (Low)?? 01/22/2023 02:27 ?? UA/URINALYSIS Appear/Color, Urine LIGHT YELLOW ()?? 01/19/2023 22:21 Specific [place], Urine 1.016 ()?? 01/19/2023 22:21 pH, Urine 8.0 ()?? 01/19/2023 22:21 Albumin, Urine 1+ (Abnormal)?? 01/19/2023 22:21 Glucose, Urine NEGATIVE ()?? 01/19/2023 22:21 Ketones, Urine 1+ (Abnormal)?? 01/19/2023 22:21 Bilirubin, Urine NEGATIVE ()?? 01/19/2023 22:21 Hemoglobin, Urine NEGATIVE ()?? 01/19/2023 22:21 Nitrite, Urine NEGATIVE ()?? 01/19/2023 22:21 Leukocyte, Urine NEGATIVE ()?? 01/19/2023 22:21 Urobilinogen NORMAL mg/dL ()?? 01/19/2023 22:21 WBC's, Urine 2 /HPF ()?? 01/19/2023 22:21 RBC's, Urine <1 /HPF ()?? 01/19/2023 22:21 Bacteria SLIGHT HPF (Abnormal)?? 01/19/2023 22:21 Squamous Epith <1 /HPF ()?? 01/19/2023 22:21 Hyaline Cast 3 LPF (High)?? 01/19/2023 22:21 Mucus SLIGHT /LPF ()?? 01/19/2023 22:21 Hold Urine Culture Testing available 48 hours from time of collection. ()?? 01/18/2023 22:38 ?? VIROLOGY Influenza A PCR NEGATIVE ()?? 01/18/2023 22:30 Influenza B PCR NEGATIVE ()?? 01/18/2023 22:30 RSV PCR NEGATIVE ()?? 01/18/2023 22:30 COVID-19 PCR Specimen Source NASAL ()?? 01/23/2023 23:07 COVID-19 PCR Result NEGATIVE ()?? 01/23/2023 23:07 ? Imaging(s) ?CT Head/Brain W/O Contrast ?? 01/20/2023 09:35??by Marilia WARD, Farshad Ramirez ?FINDINGS: BRAIN and EXTRA-AXIAL SPACES: No parenchymal hemorrhage, midline shift or mass effect. Ugarte-white matter differentiation is well preserved. No acute infarct. Ventricles, sulci and basilar cisterns are age appropriate. No white matter lesions. No subarachnoid hemorrhage, subdural or epidural collections. ?? CALVARIUM, SKULL BASE AND SOFT TISSUES: No fractures or suspicious bony lesions. ?? Moderate mucosal thickening and partial opacification of the bilateral ethmoid air cells anteriorlygreater than posteriorly, moderate mucosal thickening along the floor of the right frontal sinus and frontal nasal recess new compared to previous exam. Otherwise included paranasal sinuses and mastoid air cells are clear. Visualized orbits and globes are intact. The extracranial soft tissues are unremarkable. ?? IMPRESSION: No acute process. New paranasal sinus disease. ?Chest Portable ?? 01/19/2023 21:47??by Sheree WARD, Hardik Vásquez ?New airspace opacity in the medial right lower lung could be due to aspiration, pneumonia, or atelectasis. ? 32??minutes spent on discharge * Joanna Stahl RN: PERFORM Event Display: Patient Education/Instruction Authored Date: [id number] Inpatient Adult Discharge Instructions [address] [address] Name: ALLYSSA TIMMONS : 1990 Visit: 01/19/2023 00:43:00 Current Date: 01/25/2023 14:42 Account: [id number] Inpatient Adult Discharge Instructions We would like [...] and their families. Surveys are administered by [facility]. ?? If further treatment with your primary care physician or another doctor is recommended, it is important for you to keep the appointment. Call your primary care physician or return to the Emergency Department immediately if your condition worsens, fails to improve, or new symptoms develop. If you need to find a doctor, you can call [facility] [employer] for a referral at [phone] or toll free at [phone] ([phone]) or log in to [email or web address] ?? You can view and manage your care through the patient portal or by using a health care brisa of your choosing. [employer] is a website that allows you to securely view your medical information including your hospital discharge summary, office visit summaries, medications and follow-up visits. You can also request appointments, renew medications, and request access to your medical information using a health care brisa of your choosing, or just ask a question. You can enroll at [email or web address] or register during your next office visit. You have been discharged from [facility], Patient Care Unit: M7. If you have any questions regarding these instructions after you leave, please call us and we will be happy to assist you. [facility] Your Care Team Attending Physician Lane Mayorga MD Consulting Providers Ramin WARD, Vivian; Emmett WARD, Alla Richards MD, Laura Chaparro Discharging Providers Lane Mayorga MD Reason for Admission General medical Your Diagnosis Overdose Severe alcohol use disorder Marijuana use, episodic Alcohol withdrawal Major depression Tests Performed Below is a partial list of the tests performed during your hospitalization. You may have had other tests and procedures not included in this list. Please discuss all test results with your provider. Acetaminophen Level Alcohol Level Alk Phos ALT Amphetamine Urine Screen Aspirin Level AST Barbiturate Urine Screen BASE EXCESS POC CARTRIDGE Basic Metabolic Panel Benzodiazepine Urine Screen BUN Calcium Ionized CALCIUM IONIZED POC CART Calcium Level Cannabinoid Urine Screen CBC CBC w/ Differential CK (CREATINE KINASE) CK w/ Reflex CKMB CKMB CONFIRMATION/QUANT Cocaine Urine Screen Comprehensive Metabolic Panel COVID-19 (2019 Novel Coronavirus) PCR COVID-19, RSV, and Flu A/B, Rapid PCR Creatinine Electrolytes Glucose Level GLUCOSE POC GLUCOSE POC CARTRIDGE HEMATOCRIT POC CARTRIDGE HEMOGLOBIN POC CARTRIDGE High??Sensitivity??Troponin T HOLD GEL TUBE HOLD GREEN TUBE HOLD LAVENDER TUBE Ionized Calcium Lactate Level Magnesium Level Opiate Screen Urine OSMOLALITY, SERUM PH, VENOUS BLOOD Phenobarbital Level Phosphorus Level POTASSIUM POC CARTRIDGE Serum Qualitative ProBNP Procalcitonin Level SODIUM POC CARTRIDGE UA Urinalysis w/hold for Urine Culture VBG POC CARTRIDGE CT Head/Brain W/O Contrast PCXR Portable Chest Primary Care Provider Mike Franks MD Advance Directive Health Care Proxy on File Yes - Health Care Proxy Discharge Vitals Temperature: 100.2 DegF Height: 160 cm Pulse Rate:??99 bpm??High Weight: 66.1 kg Respiratory Rate: 18 br/min Body Mass Index:??28.36 kg/m2??High Systolic Blood Pressure: 122 mm Hg Body surface area: 1.8 Diastolic Blood Pressure: 84 mm Hg ?? Oxygen Saturation: 99 % ?? Studies Pending All tests and labs ordered during this hospital stay have been completed unless listed below. Please discuss all pending results with your provider listed above in these instructions. ?? Add On Lab Order Blood Culture Blood Culture #2 COVID-19 (2019 Novel Coronavirus) PCR Hold Lavender Tube (BB) Sputum Culture w/ Gram Smear What to do next Instructions From Your Doctor Discharge Orders Diet:??Regular Diet Code Status:?? Full Resuscitation Prognosis:??Fair You Need to Schedule the Following Appointments Follow Up with??Mike Franks MD When??Within 1 week: call to discuss follow up visit Where: [address] [place] [address]- Discharge Medications ALLYSSA TIMMONS :1990 Visit Date:01/19/2023 Medications: Please continue your medications until treatment is completed or stopped by your provider. Medications not listed below should be discontinued. Discuss any questions related to medications with your provider. What How Much When Instructions Next Dose New Acetaminophen (Tylenol 325 mg oral tablet) 2 tab(s) Oral Every 6 hours as needed for Temperature Tonight at 8:30pm New Amoxicillin-Clavulanate (Augmentin 875 mg-125 mg oral tablet) 1 tab(s) Oral Every 12 hours Duration: 2 Days Pickup at [facility]/pharmacy #[id number] Tonight at bedtime New Benzocaine Topical (Chloraseptic Lozenge) 1 lozenge(s) Oral Every 3 hours as needed for Other Sore Throat ?? This afternoon at 4pm as needed for sore throat New Benzonatate (benzonatate 200 mg oral capsule) 1 capsule Oral 3 times a day as needed for Cough Tonight at bedtime New Diazepam (diazepam 5 mg oral tablet) 1 tab(s) Oral Every 24 hours Tomorrow 01/26/23??at 2:30 pm New Guaifenesin/ Dextromethorphan (GuaiFENEsin / Dextromethorphan Liquid) 10 Milliliter Oral Twice a day as needed for Cough Tonight at bedtime New Lidocaine Topical (Lidocaine 2% Viscous Liquid) 10 Milliliter Swish and Spit 3 times a day as needed for Cough This afternoon at 3pm if needed New Lorazepam (Ativan 1 mg oral tablet) 1 tab(s) Oral Twice a day as needed for Anxiety Tonight at bedtime New Melatonin (melatonin 3 mg oral tablet) 6 Milligram Oral Daily at Bedtime as needed for Sleep Tonight at bedtime New Milk of Magnesia (Milk of Magnesia Liquid) 30 Milliliter Oral Twice a day as needed for Constipation Tonight at at bedtime as needed for constipation New Pyridoxine (Pyridoxine Tablet) 50 Milligram Oral Daily Tomorrow Morning New Thiamine (thiamine 100 mg oral tablet) 1 tab(s) Oral Daily Tomorrow Morning Changed Sertraline (sertraline 50 mg oral tablet) 1 tab(s) Oral Daily Tomorrow Morning Unchanged Folic Acid (folic acid 1 mg oral tablet) 1 tab(s) Oral Daily Tomorrow Morning Unchanged HydrOXYzine (hydrOXYzine hydrochloride 50 mg oral tablet) TAKE 1 TABLET BY MOUTH THREE TIMES A DAY NEEDED ?? Tonight at bedtime if needed Unchanged Magnesium Oxide (magnesium oxide 400 mg oral tablet) TAKE 1 TABLET BY MOUTH EVERY DAY ?? Tomorrow Morning Unchanged Multivitamin (Multivitamin Tablet) 1 tab(s) Oral Daily Tomorrow Morning Unchanged Pantoprazole (pantoprazole 40 mg oral delayed release tablet) TAKE 1 TABLET BY MOUTH EVERY DAY ?? Tomorrow Morning Pharmacy Information [facility]/pharmacy #[id number]: [address], [place] [id number] [phone] ?? What How Much When Comments Stop Taking BusPIRone (busPIRone 15 mg oral tablet) 1 tab(s) Oral Twice a day Stop Taking Famotidine (famotidine 20 mg oral tablet) 1 tab(s) Oral Once Stop Taking Quetiapine (QUEtiapine 200 mg oral tablet) TAKE 1 TABLET BY MOUTH EVERYDAY AT BEDTIME ?? Test Results Below is a partial list of the most recent Laboratory test results done prior to this discharge. You may have had other tests and procedures not included in this list. Please discuss all test resultswith your provider. Acetaminophen Level (01/18/2023) ? ?Acetaminophen Level - <5 mg/L Alcohol Level (01/18/2023) ???Ethanol, Serum or Plasma - 399 mg/dL Alk Phos (01/18/2023) ???Alkaline Phosphatase - 88 units/L ALT (01/18/2023) ???ALT (SGPT) - 8 units/L Amphetamine Urine Screen (01/18/2023) ???Amphetamine Screen, Urine - NONE DETECTED Aspirin Level (01/18/2023) ? ?Salicylate Level - <0.3 mg/dL AST (01/18/2023) ???AST (SGOT) - 23 units/L Barbiturate Urine Screen (01/18/2023) ???Barbiturate Screen, Urine - POSITIVE BASE EXCESS POC CARTRIDGE (01/18/2023) ???Base Excess (POC) POC Cartridge - NEGATIVE 3 Basic Metabolic Panel (01/23/2023) ???Sodium - 135 mmol/L???Potassium - 4.1 mmol/L???Chloride - 103 mmol/L???Bicarbonate Level - 21 mmol/L???Anion Gap - 11???Glucose Level - 90 mg/dL???BUN - 3 mg/dL???Creatinine-Blood - 0.5 mg/dL???Estimated GFR Creatinine - 130 ML/MIN/1.73 M2???Calcium - 8.2 mg/dL Benzodiazepine Urine Screen (01/18/2023) ???Benzodiazepine Screen, Urine - NONE DETECTED BUN (01/24/2023) ???BUN - 3 mg/dL Calcium Ionized (01/19/2023) ???Calcium, Ionized pH Corrected - 1.08 mmol/L CALCIUM IONIZED POC CART (01/18/2023) ???Ionized Calcium (POC) POC Cartridge - 0.84 mmol/L Calcium Level (01/24/2023) ???Calcium - 9.3 mg/dL Cannabinoid Urine Screen (01/18/2023) ???Cannabinoid Screen, Urine - NONE DETECTED CBC (01/23/2023) ???WBC - 7.3 k/mm3???RBC - 4.00 m/mm3???Hgb - 10.8 Gm/dL???Hct - 33.5 %???MCV - 83.8 femtoliters???MCH - 27.0 pg???MCHC - 32.2 g/dL???Platelet Count - 210 k/mm3???RDW-SD - 51.9 femtoliters???MPV - 9.8 femtoliters???Nucleated RBC (Automated) - 0.0 #/100 WBC'S???Abs. NRBC - 0.0 k/mm3 CBC w/ Differential (01/20/2023) ???WBC - 10.6 k/mm3???RBC - 3.94 m/mm3???Hgb - 10.7 Gm/dL???Hct - 32.6 %???MCV - 82.7 femtoliters???MCH - 27.2 pg???MCHC - 32.8 g/dL???Platelet Count - 141 k/mm3???RDW-SD - 50.9 femtoliters???MPV - 9.7 femtoliters???Nucleated RBC (Automated) - 0.0 #/100 WBC'S???Abs. NRBC - 0.0 k/mm3???Abs. Neut - 9.6 k/mm3???Abs. Lymph - 0.4 k/mm3???Abs. [place] - 0.5 k/mm3???Abs. Eo - 0.0 k/mm3???Abs. Baso - 0.0 k/mm3???Neut % - 90.8 %???Lymph % - 3.5 %???[place] % - 4.5 %???Eos % - 0.0 %???Baso % - 0.2 %???Imm Gran- 1.0 %???Abs. Imm Gran - 0.1 k/mm3 CK (CREATINE KINASE) (01/20/2023) ???CK, Total - 107 units/L CK w/ Reflex CKMB (01/19/2023) ???CK, Total - 102 units/L CKMB CONFIRMATION/QUANT (01/20/2023) ???CK MB Confirmation - Quant - 1.2 ng/mL Cocaine Urine Screen (01/18/2023) ???Cocaine Metabolite Screen, Urine - NONE DETECTED Comprehensive Metabolic Panel (01/21/2023) ???Sodium - 132 mmol/L???Potassium - 3.7 mmol/L???Chloride - 99 mmol/L???Bicarbonate Level - 20 mmol/L???Anion Gap - 13???Glucose Level - 96 mg/dL???BUN - 3 mg/dL???Creatinine-Blood - 0.6 mg/dL???Estimated GFR Creatinine - 121 ML/MIN/1.73 M2???Calcium - 8.9 mg/dL???Protein, Total - 6.5 Gm/dL???Album in - 3.8 Gm/dL???AG Ratio - 1.4???Alkaline Phosphatase - 95 units/L???AST (SGOT) - 25 units/L???ALT(SGPT) - 11 units/L???Bilirubin, Total - 0.8 mg/dL COVID-19 (2019 Novel Coronavirus) PCR (01/23/2023) ???COVID-19 PCR Specimen Source - NASAL???COVID-19 PCR Result - NEGATIVE COVID-19, RSV, and Flu A/B, Rapid PCR (01/18/2023) ???Influenza A PCR - NEGATIVE???Influenza B PCR - NEGATIVE???RSV PCR - NEGATIVE???COVID-19 PCR Specimen Source - NASAL???COVID-19 PCR Result - NEGATIVE Creatinine (01/24/2023) ???Creatinine-Blood - 0.5 mg/dL???Estimated GFR Creatinine - 127 ML/MIN/1.73 M2 Electrolytes (01/24/2023) ???Sodium - 134 mmol/L???Potassium - 3.8 mmol/L???Chloride - 97 mmol/L???Bicarbonate Level - 23 mmol/L???Anion Gap - 14 Glucose Level (01/24/2023) ???Glucose Level - 97 mg/dL GLUCOSE POC (01/19/2023) ???Glucose, POC - 132 mg/dL GLUCOSE POC CARTRIDGE (01/18/2023) ???Glucose (POC) POC Cartridge - 126 HEMATOCRIT POC CARTRIDGE (01/18/2023) ???Hematocrit (POC) POC Cartridge - 40 % HEMOGLOBIN POC CARTRIDGE (01/18/2023) ???Hemoglobin (POC) POC Cartridge - 13.6 Gm/dL High??Sensitivity??Troponin T (01/18/2023) ???High Sensitivity Troponin (HSTnT) - HEMOLYZED HOLD GEL TUBE (01/18/2023) ???Hold Gel Top - SPECIMEN DISCARDED AFTER 1 WEEK HOLD GREEN TUBE (01/19/2023) ???Hold Green Top - SPECIMEN DISCARDED AFTER 1 WEEK HOLD LAVENDER TUBE (01/24/2023) ???Hold Lavender Top - SPECIMEN DISCARDED AFTER 24 HOURS. Ionized Calcium (01/19/2023) ???Calcium, Ionized pH Corrected - 1.12 mmol/L Lactate Level (01/20/2023) ???Lactate - 1.5 mmol/L Magnesium Level (01/23/2023) ???Magnesium - 1.7 mg/dL Opiate Screen Urine (01/18/2023) ???Opiate Screen, Urine - NONE DETECTED OSMOLALITY, SERUM (01/20/2023) ???Osmolality - 268 mOs/kg PH, VENOUS BLOOD (01/18/2023) ???pH, Venous - 7.35 Phenobarbital Level (01/22/2023) ???Phenobarb Level - 11.1 mg/L Phosphorus Level (01/20/2023) ???Phosphorus - 2.2 mg/dL POTASSIUM POC CARTRIDGE (01/18/2023) ???Potassium (POC) POC Cartridge - 3.4 mmol/L Serum Qualitative (01/18/2023) ??? Serum Qual - NEGATIVE ProBNP (01/18/2023) ???Nt-Probnp - 6 pg/mL Procalcitonin Level (01/20/2023) ???Procalcitonin - 0.22 ng/mL SODIUM POC CARTRIDGE (01/18/2023) ???Sodium (POC) POC Cartridge - 134 mmol/L UA (01/19/2023) ???Appear/Color, Urine - LIGHT YELLOW???Specific [place], Urine - 1.016???pH, Urine - 8.0???Albumin, Urine - 1+???Glucose, Urine - NEGATIVE???Ketones, Urine - 1+???Bilirubin, Urine - NEGATIVE???Hemoglobin, Urine - NEGATIVE???Nitrite, Urine - NEGATIVE???Leukocyte, Urine - NEGATIVE???Urobilinogen - NORMAL? ?WBC's, Urine - 2 /HPF? ?RBC's, Urine - <1 /HPF? ?Bacteria - SLIGHT? ?Squamous Epith - <1 /HPF???Hyaline Cast - 3 LPF???Mucus - SLIGHT Urinalysis w/hold for Urine Culture (01/18/2023) ???Appear/Color, Urine - COLORLESS???Specific [place], Urine - 1.003???pH, Urine - 5.5???Albumin, Urine - NEGATIVE???Glucose, Urine - NEGATIVE???Ketones, Urine - NEGATIVE???Bilirubin, Urine - NEGATIVE???Hemoglobin, Urine - NEGATIVE???Nitrite, Urine - NEGATIVE???Leukocyte, Urine - NEGATIVE???Urobilinogen - NORMAL? ?WBC's, Urine - NONE SEEN? ?RBC's, Urine - <1 /HPF? ?Squamous Epith - <1 /HPF? ?Hold Urine Culture - Testing available 48 hours from time of collection. VBG POC CARTRIDGE (01/18/2023) ???pH Venous (POC) POC Cartridge - 7.47???pCO2 Venous (POC) POC Cartridge - 28.2 mm Hg???pO2 Venous(POC) POC Cartridge - 28 mm Hg???Est Bicarbonate (POC) POC Cartridge - 20.6 mmol/L???% O2 Sat Venous (POC) POC Cartridge - 59???Specimen Type - Blood Gas - VENOUS Allergies (NKA means No Known Allergies) NKA No Known Medication Allergies Problems Active Problems??(1) anxiety?? Education Materials Below is the list of Educational Leaflet Providered with your Discharge Instructions. Social Drinking vs. Problem Drinking?? Alcohol Withdrawal: What to Expect?? Depression: Tips to Help Yourself?? Alcohol Addiction?? Valuables and Belongings I fully understand and agree that [facility] accepts no responsibility for all my [...] ?? Review of Valuable and Belonging List: Other: ANTONINO Box Date for Pt to Sign Valuables/Belongings: 01/19/23 20:21:00 ?? Other Discharge Information ? Case Management Discharge Plan?? Discharge Plan?? Discharge Rx Program: Discharge Prescription Program ?? Pulmonary Rehab Status?? Pulmonary Rehab Discharge Status?? Respiratory Rate: 18 br/min PEEP: 5 ? Common Emergency Awareness Tips IS IT [...] are strongly encouraged to quit. Please call [facility] [employer] Link at [phone] or [phone] ([phone]) or log in to [email or web address] for referrals to smoking cessation programs. ?? The National Suicide Prevention Hotline is available 12/06 if you or someone you know needs to find a reason to keep living. By calling 7-893-589-Dely (3551) you'll be connected to a skilled, trained counselor at a crisis center in your area. INPATIENT DISCHARGE INSTRUCTIONS SIGNATURE PAGE TIMMONSALLYSSA Vásquez Location:[facility] Registration Date and Time:01/19/2023 00:43 EST Primary Care Physician: Golden WARD, Mike, I ALLYSSA TIMMONS, have received the above patient education materials/instructions and have verbalized understanding. If ambulance or transport services are being used I further acknowledge being given a choice of service. ?? If you need to contact me, please call me at this number: . Patient/Peanut Sorter Name: Patient/Peanut Sorter Signature: Relationship to Patient: Witness Name/Signature: Date: * Joanna Stahl RN: PERFORM Event Display: Patient Education Leaflets Authored Date: [id number] Social Drinking vs. Problem Drinking ?? 870 Social Drinking vs. Problem Drinking People with unhealthy alcohol use (also called alcohol use disorder or AUD) can't always predict how much they will drink, when they will stop, or what they will do while drinking. And it can be common for people with alcohol use disorder to deny the negative effects of drinking or that they even have a problem. Alcohol is considered a drug because it depresses the central nervous system and can disrupt mentaland motor skills. It can also damage internal organs when used excessively. Unhealthy alcohol use can be harmful physically, emotionally, and economically. The effects of alcohol Alcohol can lessen tension, reduce inhibitions, and ease social interactions. But drinking too muchcan: ??? Be physically and psychologically addicting ??? Cause impaired memory, coordination, and judgment ??? Damage the heart, liver, and nervous system ??? Lead to defects People who abuse alcohol also put themselves and others at risk if they drive or operate machinery after drinking too much. Unhealthy alcohol use can start at any age. There are no??good predictors of when it may start. Buta family history or current family alcohol or drug abuse??problems may influence the start of personal drinking problems. Some people have been heavy drinkers for many years. But others develop a drinking problem later in life. Sometimes a drinking problem is triggered by??major life changes that cause depression, isolation, boredom, and loneliness. ?? Safe drinking If you drink alcohol, take these steps to reduce risks: ??? Eat before drinking to help slow the alcohol's absorption and slow its effects. ??? Don???t drink alcohol when you are thirsty. Reduce yourthirst before starting to drink alcohol. ??? Don't drink when you are under stress, emotionally upset, or tired. ??? Know when to stop. Think about why you want to drink. You shouldn't drink just to get drunk. ??? Don't mix alcohol with drugs or medicines. ??? Never drink and drive. ?? Signs of problem drinking If you are concerned about your drinking, or think someone you care about has a drinking problem, look for these signs: ??? Frequent uncontrolled drinking episodes ??? Drinking until drunk ??? Going to work drunk or drinking on the job ??? Driving while drunk ??? Doing something under the influenceof alcohol that they would not otherwise do ??? Getting in trouble with the law or being injured due to drinking ??? Having problems at school, with social relationships, or with family members because of drinking ??? Using alcohol to decrease anxiety or sadness ??? Gulping drinks ??? Frequently having more than 2 drinks a day for men or 1 drink a day for women or older adults??(with a standard drink being one 12-ounce bottle or can of beer or a wine cooler, one 5-ounce glass of wine, or 1.5 ounces of 80-proof distilled spirits) ??? Lying about or trying to hide drinking habits ??? Needing more alcohol to feel its effects ??? Feeling grouchy, resentful, or unreasonable when not drinking ???Having health, social, or financial problems caused by drinking ?? What you can do ??? Learn more facts about alcoholism. ??? Treat alcoholism as a disease, not a moral failure or lack of willpower. ??? Be understanding, but don't be an enabler by protecting or lying for a person with an alcohol use disorder, or denying the problem exists. ??? Encourage treatment.Your healthcare provider can help find treatment resources. ??? Respect the recovered alcoholic's choice to stay away from alcohol. ?? Last Reviewed Date: 2021 ?? 3785-6850 [employer]. All rights reserved. This information is not intended as a substitute for professional medical care. Always follow your healthcare professional's instructions. ?? * Kulas RN, Joanna: PERFORM Event Display: Patient Education Leaflets Authored Date: [id number] Alcohol Withdrawal: What to Expect ?? 49847 Alcohol Withdrawal: What to Expect What is [...] make this decision. Work closely with an privacy specialist. Or talk with your healthcare provider. [...] complications. Ask about a referral for long-te support for stopping or reducing drinking. ?? Last Reviewed Date: 2022 ?? [employer]. All rights reserved. This information is not intended as a substitute for professional medical care. Always follow your healthcare professional's instructions. ?? * Joanna Stahl RN: PERFORM Event Display: Patient Education Leaflets Authored Date: [id number] Depression: Tips to Help Yourself ?? 39819 Depression: Tips to Help Yourself As your healthcare providers help treat your depression, you can also help yourself. Keep in mind that your illness affects you emotionally, physically, mentally, and socially. So full recovery will take time. Take care of your body and your soul, and be patient with yourself as you get better. Self-care ??? Educate yourself. Read about treatment and medicine options. If you have the energy, attend local conferences or support groups. Keep a list of useful websites and helpful books and usethem as needed. This illness is not your fault. Don???t blame yourself for your depression. ??? Manage early symptoms. If you notice symptoms returning, have triggers, or identify other factors that may lead to a depressive episode, get help as soon as possible. Ask trusted friends and family to monitor your behavior and let you know if they see anything of concern. ??? Work with your provider. Find a provider you can trust. Communicate honestly with that person. Share information on your treatment for depression and your reaction to medicines. You may need to try different medicines before finding the right one. ??? Be prepared for a crisis. Know what to do if you have a crisis. Keep the phone number of a crisis hotline handy. Know where your community's urgent care centers and the closest emergency department are. ??? Hold off on big decisions. Depression can cloud your judgment. So wait until you feel better before making major life decisions. These include changing jobs, moving, making an expensive purchase, or getting or . ??? Be patient. Recovering from depression is a process. Don???t be discouraged if it takes some time to feel better. ??? Keep it simple. Depression saps your energy and concentration. So you won???t be able to do all the things you used to do. Set small goals and do what you can. ??? Be with others. Don???t isolate yourself???you???ll only feel worse. Try to be with other people. And take part in fun activities when you can. Go to a movie, ballgame, nondenominational service, or social event. Talk openly with people you can trust. And accept help when it???s offered. ?? Take care of your body People with depression often lose the desire to take care of themselves. That only makes their problems worse. During treatment and afterward, make a point to: ??? Exercise. It???s a great way to take care of your body. And studies have shown that exercise helps fight depression. Aim for 30 minutesof moderate activity a day. Walking in small blocks of time (5-10 minutes) is a good way to start, but anything that gets you moving (gardening, house cleaning) counts. ??? Not use drugs or alcohol. These may ease the pain in the short term. But they???ll only make your problems worse in the long run. ??? Get relief from stress. Ask your healthcare provider for relaxation exercises and techniquesto help ease stress. Consider activities like meditation, yoga, progressive muscle relaxation, or milad chi. ??? Eat right. A balanced and healthy diet helps keep your body healthy. ??? Get adequate sleep. Aim for 8 hours per night. Too much or too little sleep can cause other physical and emotional problems. ?? Last Reviewed Date: 2021 ?? 2910-4981 [employer]. All rights reserved. This information is not intended as a substitute for professional medical care. Always follow your healthcare professional's instructions. ?? * Event Display: Cardiac Rhythm Strips Authored Date: Hospital Progress note * Lane Mayorga MD: PERFORM Event Display: Progress Note Hospital Authored Date: Patient: ??ALLYSSA TIMMONS ? Age:??32 Years?Sex:??Female?:??1990?? Subjective Patient was seen and evaluated by the bedside Clinically jose antonioing better Not scoring more than 8 on CIWA No suicidal ideation. listening to music. Less depressed now. hemodynamically stable Review of Systems A full review of systems was completed and is otherwise negative except as mentioned above. Objective Measurements?? Height: 160 cm (01/25/23) Weight: 66.1 kg (01/25/23) Dry Weight: 66.9 kg (01/19/23) Body Mass Index:??28.36 kg/m2??High (01/19/23) ? Vital Signs?? Temperature: 98.3 DegF (01/25/23 08:24:00) Temperature Route: Temporal (01/25/23 08:24:00) Pulse Rate: 87 bpm (01/25/23 08:24:00) Respiratory Rate: 18 br/min (01/25/23 08:24:00) Systolic Blood Pressure: 122 mm Hg (01/25/23 08:24:00) Diastolic Blood Pressure: 76 mm Hg (01/25/23 08:24:00) Blood pressure sites: Arm, right (01/25/23 08:24:00) Mean Arterial Pressure: 91 mm Hg (01/25/23 08:24:00) Pulse Pressure: 46 mm Hg (01/25/23 08:24:00) Oxygen Saturation: 96 % (01/25/23 08:24:00) Mode of Delivery (Oxygen): Room air (01/25/23 08:24:00) Early Warning Score: 1 (01/25/23 08:25:04) ? Physical Exam General:??No apparent distress. Well nourished, appears stated age. HEENT:??NCAT, EOMI, Sclera are anicteric. Moist oral mucosa. Neck:??Supple, No lymphadenopathy. No JVD. Cardiac:??Regular rate and rhythm, + S1, S2. No appreciable murmurs. PMI ND. Respiratory:??Clear to auscultation bilaterally without wheezes, rales or rhonchi. Abdomen:??Soft, nontender, non-distended, no abnormal BS, no HSM. Rectal exam deferred. Extremities:??No lower extremity edema noted.?? Neurology:??No focal neurological deficits.?? Psych:??Appropriate affect. _ Inpatient Medications Medications (18) Active SCHEDULED: (7) Diazepam 5 mg Tablet (diazepam 5 mg oral tablet) ??5 mg, By Mouth, Every 24 hours Folic Acid 1 mg Tablet (folic acid 1 mg oral tablet) ??1 mg, By Mouth, Daily Mineral Oil/Petrolatum Ophth Ointment (Mineral Oil /Petrolatum Ophth) ??1 application, Eyes, Both, Every 4 hours Multivitamin Tablet ??1 tablet, By Mouth, Daily Pyridoxine 50 mg Tablet (Pyridoxine Tablet) ??50 mg, By Mouth, Daily Sertraline 50 mg Tablet (sertraline 50 mg oral tablet) ??50 mg, By Mouth, Daily Thiamine 100 mg Tablet (thiamine 100 mg oral tablet) ??100 mg, By Mouth, Daily CONTINUOUS: (0) PRN: (11) Acetaminophen 325 mg Tablet (Tylenol 325 mg oral tablet) ??650 mg, By Mouth, Every 6 hours Benzonatate 100 mg Capsule (Benzonatate Capsule) ??200 mg, By Mouth, 3 times a day Bisacodyl 10 mg Suppository (Bisacodyl Supp) ??10 mg 1 supp, Rectally, 2 times a day Chloraseptic Lozenge ??1 lozenge, By Mouth, Every 3 hours Dextromethorphan-Guaifenesin 20 mg-200 mg/10 mL Liqu UD (GuaiFENEsin /Dextromethorphan Liquid) ??10mL, By Mouth, 2 times a day Docusate Sodium 10 mg/mL Liquid UD (Colace Liquid) ??100 mg 10 mL, By Mouth, 2 times a day Lidocaine 2% Viscous Solution UD (15mL) (Lidocaine 2% Viscous Liquid) ??10 mL, Swish and Spit, 3 times a day Lorazepam 1 mg Tablet (Ativan 1 mg oral tablet) ??1 mg, By Mouth, 2 times a day Magnesium Hydroxide 8% Susp UD (Milk of Magnesia Liquid) ??30 mL, By Mouth, 2 times a day Melatonin 3 mg Tablet (Melatonin Tablet) ??6 mg, By Mouth, Daily at bedtime Ondansetron 2mg/mL Inj (2mL Vial) (Zofran Inj) ??4 mg, IV Push, Every 6 hours ? 72 Hour Antibiotic History Stopped Antibiotics Stop Date/Time Last Administered First Administered Ampicillin-Sulbactam??3 Gm, 100 mL/hr, IVPB, Every 6 hours 01/25/2023 11:56 01/25/2023 10:54 01/22/2023 09:22 ? Results Recent Labs CHEM GENERAL Sodium 134 mmol/L ()?? 01/24/2023 05:26 Potassium 3.8 mmol/L ()?? 01/24/2023 05:26 Chloride 97 mmol/L (Low)?? 01/24/2023 05:26 Bicarbonate Level 23 mmol/L ()?? 01/24/2023 05:26 Anion Gap 14 ()?? 01/24/2023 05:26 Glucose Level 97 mg/dL ()?? 01/24/2023 05:26 BUN 3 mg/dL (Low)?? 01/24/2023 05:26 Creatinine-Blood 0.5 mg/dL ()?? 01/24/2023 05:26 Estimated GFR Creatinine 127 ML/MIN/1.73 M2 ()?? 01/24/2023 05:26 Calcium 9.3 mg/dL ()?? 01/24/2023 05:26 ?? HEME OTHER Hold Lavender Top SPECIMEN DISCARDED AFTER 24 HOURS. ()?? 01/24/2023 05:26 ? Assessment/Plan ??32-year-old female with a past medical history of alcohol use disorder, history of alcohol withdrawal complicated by seizures, suicide attempts in the past, depression, and anxiety who presented toemergency department after her mother reported a suicide attempt with overdose with sertraline and quetiapine who was intubated for airway protection and encephalopathy requiring medical ICU admission who is now extubated (01/19/23) and evaluated by psychiatry and??was ??transferred to [facility] for further management on 01/19/23. Hospital course complicated by alcohol withdrawal seizures (last bein suresh 01/20/23 4 am. Clinically gradually feeling better. ?? Acute toxic/metabolic??encephalopathy secondary to intentional overdose - quetiapine and sertraline Suicide attempt Acute alcohol intoxication History of??Alcohol use disorder, alcohol withdrawal and withdrawal seizures History of??depression/anxiety Patient presents with altered mental status in the setting of overdose on sertraline and quetiapinewith prior suicide attempts. Ethanol level 399, urine toxicology positive for barbiturates, negative for salicylate and acetaminophen. Patient required intubation for altered mental status 01/18/23, extubated on 01/19/23 Poison control was contacted in the medical ICU; to note: Quetiapine peaks at 1.5 hours, t1/2 ~6 hours and Sertraline: peak 4.5-8.5 hrs, t1/2 26-27 hours; patient past this window seizure free for??past 48 hours; ??CT head neg>>likely alcohol withdrawal, ct head reviewed neg addiction medicine eval on 01/20>>reccs applied No longer scoring > 8 in CIWA. Clinicaly feeing much better. Still very anxious. Plan: - Continue diazepam 5 mg daily to?? help increase the seizure threshold and provide longer coveragefor symptoms--->Wean down gradually - Ativan 1mg bid PRn for anxiety-->Wean and stop gradually - Resume sertralin 50mg PO daily as per Psych - Continue thiamine, multivitamins, folic acid, and pyridoxine - Constant one-to-one transportation planning technician - Cannot leave AGAINST MEDICAL ADVICE as per psychiatry - When alcohol withdrawal is complete, can start campral 666mg PO TID. Would wait at least??5 days from her last fentanyl (or other opiate dose) to start naltrexone 50mg PO daily - Patient is now medically stable to transfer to psych unit ? Aspiration pneumonia: 01/19/23: was hypoxic after seizure, found to have new opacity in RLL in the chest x ray likely aspiration pneumonia was started on zosyn 01/20/23>>transitioned to unasyn on 01/22/23. Stopped antibiotics on 01/25/23. monitor fever, wbc curve, spo2 ?? Other problems that are now resolved: QTc prolongation: corrected Hypokalemia-resolved Hypomagnesemia - resolved Elevated anion gap metabolic acidosis - resolved Lactic acidosis - resolved Acute hypoxemic Respiratory Failure requiring intubation and mechanical ventilation CXR: Clear lungs. Normal pulmonary vascularity. No pleural effusion. No pneumothorax Extubated on 01/19/23 to nasal cannula now saturating well in RA. lidocaine salvadorean and swallow ?? Quality measures: DVT prophylaxis: Enoxaparin Diet: Regular Code: Full resuscitation? * Enrique Patel DO: PERFORM, MODIFY, MODIFY, MODIFY, MODIFY, MODIFY, MODIFY Event Display: Progress Note Hospital Authored Date: [id number] Patient: ??NITO, ALLYSSA ? Age:??32 Years?Sex:??Female?:??1990?? Subjective Chart reviewed, patient seen this morning in her room with 1-1 present. Patient feels?? fine this morning. She??is denying any SI at this time, stating that she feels more comfortable with??going home. Her plan in??the outpatient setting would be to??get in touch with her??counselor??so that she??can get in to an IOP. States that she has been to rehab two other times at the same substance use center [place], and the experience was not helpful. Patient continues to have no recollection of overdosing, stating I am nondenominational it is a sin to commit suicide . In addition, patient denies previously harming herself with a knife, stating she just punched a wall out of frustration. At this time denying side effects to her medications, reporting anxiety ongoing but??states that the anxiety is in line with??her baseline. Denying symptoms of alcohol withdrawal, HI/psychotic symptoms at this time. No acute events overnight. Per staff reports: Received pt at 1900, Pt alert & oriented x3, no c/o pain. Nausea reported, Zofran given with good effect. PRN cough medications given for persistent non-productive cough. IV Ativan given per [facility] protocol. Tele SR 90 s. Occasionally Low 100 s. Pt ambulating to bathroom. Constant transportation planning technician at bedside. Safety maintained. Call carranza within reach..? Collateral obtained from patient's mother and father: both individuals feel the patient is not safeto return home at this time. They confirm that the patient was in fact intoxicated one week prior to admission and tried to find a sharp knife but mother hid the knives and patient cut her arm with abutter knife. Because of the two recent self-harm incidents that occurred while the patient was intoxicated, they feel the patient will harm herself if she were to return home. Of note, they state that after the patient's 2 [address] stays she returned home worse than before. ?? Review of Systems All systems reviewed and negative except as noted in subjective. Objective Vital Signs?? Temperature: 98.3 DegF (01/25/23 08:24:00) Temperature Route: Temporal (01/25/23 08:24:00) Pulse Rate: 87 bpm (01/25/23 08:24:00) Respiratory Rate: 18 br/min (01/25/23 08:24:00) Systolic Blood Pressure: 122 mm Hg (01/25/23 08:24:00) Diastolic Blood Pressure: 76 mm Hg (01/25/23 08:24:00) Blood pressure sites: Arm, right (01/25/23 08:24:00) Mean Arterial Pressure: 91 mm Hg (01/25/23 08:24:00) Pulse Pressure: 46 mm Hg (01/25/23 08:24:00) Oxygen Saturation: 96 % (01/25/23 08:24:00) Mode of Delivery (Oxygen): Room air (01/25/23 08:24:00) Early Warning Score: 1 (01/25/23 08:25:04) ? Physical Exam Mental Status Exam Appearance: This is a female dressed in hospital gown with appropriate grooming and hygiene Eye contact: Within normal limits Attitude:??Calm, cooperative Motor Activity: Calm; devoid of tics, tremors, psychomotor agitation, psychomotor slowing Mood: fine Affect: Congruent, mildly blunted Speech: normal rate, normal??tone and normal prosody?? Perception: No reported AVH; no objective impairment, preoccupation or responding to internal stimuli Orientation: Intact Memory: Impaired regarding events leading to admission Thought Process: Coherent Thought Content: Discharge focused. No delusions, paranoia, or abnormal thought content elicited orreported. Overall, appropriate to encounter. Insight: Impaired Judgment: Impaired??given events leading to admission Suicidality/Self-destructive Behavior: None exhibited in the hospital Homicidality/Violence: None Muscle strength/tone: Antigravity. No rigidity noted.? _ Inpatient Medications Medications (22) Active SCHEDULED: (8) Ampicillin/Sulbactam 3 Gm Inj (Unasyn IVPB) ??3 Gm, IVPB, Every 6 hours Diazepam 5 mg Tablet (diazepam 5 mg oral tablet) ??5 mg, By Mouth, Every 24 hours Enoxaparin 40 mg Inj (Lovenox Inj) ??40 mg 0.4 mL, Subcutaneous Injection, Daily Folic Acid 1 mg Tablet (folic acid 1 mg oral tablet) ??1 mg, By Mouth, Daily Mineral Oil/Petrolatum Ophth Ointment (Mineral Oil /Petrolatum Ophth) ??1 application, Eyes, Both, Every 4 hours Multivitamin Tablet ??1 tablet, By Mouth, Daily Pyridoxine 50 mg Tablet (Pyridoxine Tablet) ??50 mg, By Mouth, Daily Thiamine 100 mg Tablet (thiamine 100 mg oral tablet) ??100 mg, By Mouth, Daily CONTINUOUS: (0) PRN: (14) Acetaminophen 325 mg Tablet (Tylenol 325 mg oral tablet) ??650 mg, By Mouth, Every 6 hours Benzonatate 100 mg Capsule (Benzonatate Capsule) ??200 mg, By Mouth, 3 times a day Bisacodyl 10 mg Suppository (Bisacodyl Supp) ??10 mg 1 supp, Rectally, 2 times a day Chloraseptic Lozenge ??1 lozenge, By Mouth, Every 3 hours Dextromethorphan-Guaifenesin 20 mg-200 mg/10 mL Liqu UD (GuaiFENEsin /Dextromethorphan Liquid) ??10mL, By Mouth, 2 times a day Docusate Sodium 10 mg/mL Liquid UD (Colace Liquid) ??100 mg 10 mL, By Mouth, 2 times a day Lidocaine 2% Viscous Solution UD (15mL) (Lidocaine 2% Viscous Liquid) ??10 mL, Swish and Spit, 3 times a day Lorazepam 2 mg Inj Syringe (Ativan Inj) ??2 mg, IV Push Slowly, Every 3 hours Lorazepam 2 mg Inj Syringe (Ativan Inj) ??1 mg, IV Push Slowly, Every 2 hours Lorazepam 2 mg Inj Syringe (Ativan Inj) ??2 mg, IV Push Slowly, Every 2 hours Lorazepam 2 mg Inj Syringe (Ativan Inj) ??2 mg, IV Push Slowly, Every hour Magnesium Hydroxide 8% Susp UD (Milk of Magnesia Liquid) ??30 mL, By Mouth, 2 times a day Melatonin 3 mg Tablet (Melatonin Tablet) ??6 mg, By Mouth, Daily at bedtime Ondansetron 2mg/mL Inj (2mL Vial) (Zofran Inj) ??4 mg, IV Push, Every 6 hours ? Results Recent Labs CHEM GENERAL Sodium 134 mmol/L ()?? 01/24/2023 05:26 Potassium 3.8 mmol/L ()?? 01/24/2023 05:26 Chloride 97 mmol/L (Low)?? 01/24/2023 05:26 Bicarbonate Level 23 mmol/L ()?? 01/24/2023 05:26 Anion Gap 14 ()?? 01/24/2023 05:26 Glucose Level 97 mg/dL ()?? 01/24/2023 05:26 BUN 3 mg/dL (Low)?? 01/24/2023 05:26 Creatinine-Blood 0.5 mg/dL ()?? 01/24/2023 05:26 Estimated GFR Creatinine 127 ML/MIN/1.73 M2 ()?? 01/24/2023 05:26 Calcium 9.3 mg/dL ()?? 01/24/2023 05:26 ?? HEME OTHER Hold Lavender Top SPECIMEN DISCARDED AFTER 24 HOURS. ()?? 01/24/2023 05:26 ? Assessment/Plan Allyssa Timmons is a 32-year-old female patient with a past history of??alcohol use disorder, depression, alcohol withdrawal seizures, who initially presented to the [facility] emergency department on 01/18/2023 in the setting of an intentional overdose with medications. Suspected to have ingested 20-25 100mg sertraline pills and 20-25 200mg quetiapine pills while intoxicated from alcohol. Is currently intubated and sedated in the ICU. Given that there is significant concern that this overdose was a suicide attempt, and the patient has been engaging in escalating self-harm behaviors over the pastfew weeks while increasing her alcohol consumption, there is concern that patient remains at acute risk of self-harm. Therefore, patient should remain on suicide precautions with 1-1 upon extubation,and cannot leave AMA without psychiatry clearance. ?? 01/20: Now that patient is successfully extubated and sedation is weaned patient is able to engage inconversation. At this time she has no recollection of overdosing with her medications, and is denying that she overdosed despite family noting patient making statements concerning for suicide, EMS finding empty pill bottles next to her, and a prolonged MICU stay for concern of overdose. Given the events leading to admission as described by family, the patient's??poor insight into worsening self-harm behaviors while intoxicated,??as well as a recent episode of self-harm by cutting while intoxicated, there is significant risk of ongoing self-harm if patient were to be discharged and would benefit from inpatient psychiatric hospitalization for further stabilization. ?? 01/25: patient is now medically cleared. Upon examination today patient does appear somewhat brighter, no longer experiencing alcohol withdrawal symptoms. Denying SI at this time as well. There is a demonstrated??pattern of behavior at home in which patient becomes increasingly suicidal while intoxicated which has been confirmed by the patient's parents whom she lives with. They feel the patient isnot safe returning home, and there appears to be significant risk of relapse with alcohol upon discharge given the many recurring hospitalizations recently for alcohol withdrawal. Therefore, will refer patient for inpatient psychiatric bed placement at this time. ?? DSM- 5 Diagnoses: Suicide attempt Alcohol use disorder, severe? Recommendations: -Continue constant transportation planning technician. Patient may NOT leave AMA without psychiatry clearance. -Referring patient for inpatient psychiatric bed search in the setting of suicide attempt ?? Thank you for allowing us to participate in this patient???s care. We will continue to follow the patient as needed by the primary team. Please feel free to contact the Psychiatry consult service [phone]) with any questions or concerns.? Case and plan discussed with attending psychiatrist,??Dr. Faustin Recommendations??conveyed to??Dr. Mayorga ?? Enrique Pan DO, PGY-2 Psychiatry Residency Program [facility] Pager #[phone] ?? * Fede Walker RN: MODIFY, SIGN, VERIFY, PERFORM Event Display: Progress Note Hospital Authored Date: Patient: ALLYSSA TIMMONS Age: 32 years Sex: Female : 1990 Associated Diagnoses: None Author: Fede Walker RN Findings Evaluation Assumed care of patient approx. 0700. Tele SR. A&Ox4. CIWA 5. Continues to endorse some nausea and anxiety w/headache. PRN zofran administered. Psych evaluated patient, pending recommendations. LS clear on room air, continues to endorse dry cough. PRN tesslon pearle, lozenges, guafinesen, and lidocaine viscous administered with minimal effect. Denies any SI today. Last day of IV Unasyn for aspiration PNA. Continues on 1:1 sitter for safety. Call carranza within reach. Safety precautions maintained. Approx. 1430 patient had a low-grade fever 100 orally, Dr. Mayorga notified, will continue on PO antbitoics. PRN tylenol administered. Patient is medically cleared to be transferred to [facility], report given to Zoya MUÑIZ. . Portable XR Chest Views * Nissa , CIS S: TRANSCRIBE Sheree WARD, Hardik S: VERIFY Event Display: Result: Authored Date: Chest Portable INDICATION: hypoxia after seizure, ? aspiration; Clinical Question(s): Aspiration / Aspiration COMPARISON: 01/18/2023 FINDINGS: LINES AND TUBES: None. LUNGS AND PLEURA: New airspace opacity in the medial right lower lung. No pleural effusion. No pneumothorax. HEART, MEDIASTINUM AND CAMILA: Heart is normal in size. Normal mediastinal and hilar contour. BONES AND SOFT TISSUES: No acute abnormality. IMPRESSION: New airspace opacity in the medial right lower lung could be due to aspiration, pneumonia, or atelectasis. WSN: [id number] Ordering Physician: Earlene Merino Dictated By: Hardik Bentley MD Dictated Date/Time: 01/19/23 9:51 pm Reviewed By: Hardik Bentley MD Signed By: Hardik Bentley MD Signed Date/Time: 01/19/23 9:51 pm Transcribed By: JAMES Transcribed Date/Time: 01/19/23 9:50 pm * Nissa , CIS S: TRANSCRIBE Hardik Bentley MD: VERIFY Event Display: Result: Authored Date: [id number] Chest Portable INDICATION: overdose, ?aspiration; Clinical Question(s): Aspiration / Aspiration COMPARISON: 09/28/2022 FINDINGS: LINES AND TUBES: None. LUNGS AND PLEURA: Clear lungs. Normal pulmonary vascularity. No pleural effusion. No pneumothorax. HEART, MEDIASTINUM AND CAMILA: Heart is normal in size. Normal mediastinal and hilar contour. BONES AND SOFT TISSUES: No acute abnormality. IMPRESSION: No evidence of acute abnormality. WSN: [id number] Ordering Physician: Shi Bowers Dictated By: Hardik Bentley MD Dictated Date/Time: 01/18/23 10:23 p Reviewed By: Hardik Bentley MD Signed By: Hardik Bentley MD Signed Date/Time: 01/18/23 10:23 pm Transcribed By: JAMES Transcribed Date/Time: 01/18/23 10:22 pm * Nissa , CIS S: TRANSCRIBE Hardik Bentley MD: VERIFY Event Display: Result: Authored Date: [id number] Chest Portable REASON: Tube Placement; Clinical Question(s): Tube Placement / Tube Placement COMPARISON: Earlier today. FINDINGS: LINES AND TUBES: Endotracheal tube ends 3.5 cm above the pj. Enteric tube ends in the stomach. LUNGS AND PLEURA: Clear lungs. Normal pulmonary vascularity. No pleural effusion. No pneumothorax. HEART, MEDIASTINUM AND CAMILA: Heart is normal in size. Normal mediastinal and hilar contour. BONES AND SOFT TISSUES: No acute abnormality. IMPRESSION: Endotracheal and enteric tubes appear appropriately positioned. WSN: [id number] Ordering Physician: Shi Bowers Dictated By: Hardik Bentley MD Dictated Date/Time: 01/18/23 11:17 p Reviewed By: Hardik Bentley MD Signed By: Hardik Bentley MD Signed Date/Time: 01/18/23 11:17 pm Transcribed By: JAMES Transcribed Date/Time: 01/18/23 11:[address] Head WO contrast * BHSPowerscribe , CIS S: TRANSCRIBE Farshad Capellan MD: VERIFY Event Display: Result: Authored Date: [id number] CT Head/Brain W/O Contrast Reason: Other:; seizures, fever; Clinical Question(s): Infection Abscess; Order Comment:. TECHNIQUE: Incremental CT without contrast through the head was formatted in axial and coronal plane. Weight-based protocol using automatic tube modulation was performed to optimize scan parameters. CTDIvol Head: 40.73 mGy, DLP Head: 652 mGy*cm. COMPARISON: 09/28/2022. FINDINGS: BRAIN and EXTRA-AXIAL SPACES: No parenchymal hemorrhage, midline shift or mass effect. Ugarte-white matter differentiation is well preserved. No acute infarct. Ventricles, sulci and basilar cisterns are age appropriate. No white matter lesions. No subarachnoid hemorrhage, subdural or epidural collections. CALVARIUM, SKULL BASE AND SOFT TISSUES: No fractures or suspicious bony lesions. Moderate mucosal thickening and partial opacification of the bilateral ethmoid air cells anteriorlygreater than posteriorly, moderate mucosal thickening along the floor of the right frontal sinus and frontal nasal recess new compared to previous exam. Otherwise included paranasal sinuses and mastoid air cells are clear. Visualized orbits and globes are intact. The extracranial soft tissues are unremarkable. IMPRESSION: No acute process. New paranasal sinus disease. WSN: [id number] Ordering Physician: Earlene Merino Dictated By: Farshad Capellan MD Dictated Date/Time: 01/20/23 9:46 am Reviewed By: Farshad Capellan MD Signed By: Farshad Capellan MD Signed Date/Time: 01/20/23 9:46 am Transcribed By: JAMES Transcribed Date/Time: 01/20/23 9:43 am Patient Care team information Care Team Personnel Name: Sebastian MUÑIZ, Destiny Position: [facility] RN Member Role: Primary Care Nurse Name: Mike Franks MD Position: [facility] Outreach Member Role: PCP Address: Address: [address] [place] [address] Mike Franks MD [place], [place] - Name: Jake RN, February Position: [facility] RN Member Role: Primary Care Nurse Name: Yanely Hollis RN Position: [facility] RN Member Role: Primary Care Nurse Name: Hiwot Yepez RN Position: [facility] RN Member Role: Primary Care Nurse Name: Gladys Ramirez MD Position: [facility] Physician -Physician Practices Member Role: Lifetime Consulting Physician Name: Lorena Pascual RN Position: [facility] RN Member Role: Primary Care Nurse Name: Elvi Olsen RN Position: [facility] RN Member Role: Primary Care Nurse Name: Debbie Hoffmann RN Position: [facility] RN Member Role: Primary Care Nurse Name: Norah Valdovinos RN Position: [facility] RN Supv Member Role: Primary Care Nurse Name: Nevin Rosenberg RN Position: [facility] RN Member Role: Primary Care Nurse Name: Suzette Goodrich RN Position: [facility] RN Member Role: Primary Care Nurse Name: Carla Hdz RN Position: [facility] Registered Associate Member Role: Primary Care Nurse Name: Kelsey Murphy RN Position: [facility] RN Member Role: Primary Care Nurse Name: Joseph Murdock RN Position: [facility] RN Member Role: Primary Care Nurse Name: Cornell Ceja RN Position: [facility] RN Member Role: Primary Care Nurse Name: Rocío FOSTER Attending Position: [facility] ED Medicine MD Name: Brent Stanford RN Position: [facility] ED RN W/OE and Tasks Member Role: Patient Care Provider Name: Gabriella Anderson Position: [facility] ED OA Charge Member Role: ED Associate Name: Andi Whittaker Position: [facility] ED TA [facility] Member Role: Dynamometer Tester Care Team Related Persons Name: FIDEL TIMMONS Address: home [address] Name: NAYELI ARRIAGA
--- OUTSIDE RECORDS SUMMARY | 2023-08-02 17:24 | XMS_ITS | Continuity of Care Document ---
Author Name Unknown Organization [facility] ter Address [address] [place] [id number]- Care Team Providers Care Percussion Instrument Tuner Name Role Phone Mike Franks MD Primary Care Physician [phone] Encounter [facility] Date(s): 08/26/20 - 08/26/[address] [id number] Encounter Diagnosis Alcohol intoxication(Final) - 08/26/20 Discharge Disposition: A-D/C Home Attending Physician: Carmela Dinh MD Admitting Physician: Carmela Dinh MD Referring Physician: Not on Staff, Referring [...] 5 Refills Start Date: 06/22/09 Status: Ordered Vital Signs Most recent to oldest [Reference Range]: 1 2 3 Oxygen Saturation [94-100 %] 97 % (08/26/20 7:41 PM) 96 % (08/26/20 6:07 PM) 95 % (08/26/20 2:34 PM) Pulse Rate [55-90 bpm] 101 bpm *H* (08/26/20 7:41 PM) 109 bpm *H* (08/26/20 6:07 PM) 112 bpm *H* (08/26/20 2:34 PM) Blood Pressure [90-138/55-84 mm Hg] 118/72mm Hg (08/26/20 7:41 PM) 122/74mm Hg (08/26/20 6:07 PM) 131/92mm Hg (08/26/20 2:34 PM) Respiratory Rate [16-30 br/min] 20 br/min (08/26/20 7:41 PM) 14 br/min *L* (08/26/20 6:07 PM) 16 br/min (08/26/20 2:34 PM) Temperature [96.8-100.4 DegF] 98.8 DegF (08/26/20 6:07 PM) 98.4 DegF (08/26/20 2:34 PM) 98.5 DegF (08/26/20 1:16 PM) Mode of Delivery (Oxygen) Room air (08/26/20 7:41 PM) Room air (08/26/20 6:07 PM) Room air (08/26/20 2:34 PM) Blood pressure sites Arm, left (08/26/20 7:41 PM) Arm, right (08/26/20 2:34 PM) Arm, right (08/26/20 1:16 PM) Temperature Route Oral (08/26/20 6:07 PM) Oral (08/26/20 1:16 PM)
--- OUTSIDE RECORDS SUMMARY | 2023-08-02 17:24 | XMS_ITS | Continuity of Care Document ---
Author Name Unknown Organization [facility] ter Address [address] [place] [id number] Care Team Providers Care Certified Vehicle Fire Investigator Name Role Phone Mike Franks MD Primary Care Physician Encounter [facility] [place] Date(s[place] 06/23/23 - 06/26/[address] [id number] Encounter Diagnosis Alcohol abuse with withdrawal(Final) - 06/23/23 Discharge Disposition: A-D/C Home Attending Physician: Kevin WARD, Wilber Ventura Admitting Physician: Gwendolyn WARD, Chay Referring Physician: Not on Staff, Referring MD Allergies, Adverse Reactions, Alerts No Known Allergies Medications escitalopram 5 mg oral tablet TAKE 1 TABLET BY MOUTH EVERY DAY IN THE MORNING Start Date: 06/24/23 Status: Ordered folic acid [...] Refills, Maintenance, 04/05/23 8:19:00 EDT, Capsule, [id number], Partial fill upon patient request if the [...] 0 Refills, Maintenance, 06/26/23 11:20:00 EDT, Tablet, [facility]pharm[facility] #[id number], Partial fill upon patient request if the prescription is for a schedule II opioid drug., 1 tablet By Mouth Daily,x30 days, 161, cm, 08/0... Start Date: 06/26/23 Stop Date: 07/26/23 Status: Ordered naltrexone 50 mg oral tablet 1 tablet = 50 mg, By Mouth, Daily, # 30 tablet, 1 Refills, Maintenance, 06/26/23 11:23:00 EDT, Tablet, [facility]/pharmacy #[id number], Partial fill upon patient request [...] oldest [Reference Range]: 1 2 3 Height 161 cm (06/26/23 12:43 PM) 161 cm (06/26/23 11:29 AM) 161 cm (06/26/23 7:04 AM) Weight 68 kg (06/24/23 9:15 PM) 68 kg (06/24/23 3:18 AM) 68 kg (06/24/23 12:24 AM) Oxygen Saturation [94-100 %] 99 % (06/26/23 12:43 PM) 100 % (06/26/23 11:29 AM) 100 % (06/26/23 7:04 AM) Pulse Rate [55-90 bpm] 103 bpm *H* (06/26/23 12:43 PM) 94 bpm *H* (06/26/23 11:29 AM) 75 bpm (06/26/23 7:04 AM) Body Mass Index [18.5-24.99 kg/m2] 26.23 kg/m2 *H* (06/24/23 9:15 PM) 26.23 kg/m2 *H* (06/24/23 3:18 AM) 26.23 kg/m2 *H* (06/24/23 12:24 AM) Blood Pressure [90-138/55-84 mm Hg] 126/85mm Hg (06/26/23 12:43 PM) 130/90mm Hg (06/26/23 11:29 AM) 115/78mm Hg (06/26/23 7:04 AM) Respiratory Rate [16-30 br/min] 18 br/min (06/26/23 12:43 PM) 18 br/min (06/26/23 11:29 AM) 16 br/min (06/26/23 7:04 AM) Temperature [96.8-100.4 DegF] 98.5 DegF (06/26/23 12:43 PM) 97.9 DegF (06/26/23 11:29 AM) 98.2 DegF (06/26/23 7:04 AM) Liters per Minute 2 L/min (06/23/23 7:54 PM) Mode of Delivery (Oxygen) Room air (06/26/23 12:43 PM) Room air (06/26/23 11:29 AM) Room air (06/26/23 7:04 AM) Blood pressure sites Arm, right (06/26/23 12:43 PM) Arm, left (06/26/23 11:29 AM) Arm, left (06/26/23 7:04 AM) Temperature Route Oral (06/26/23 12:43 PM) Oral (06/26/23 11:29 AM) Oral (06/26/23 7:04 AM) Dry Weight 68 kg (06/24/23 9:15 PM) 68 kg (06/24/23 3:18 AM) 68 kg (06/24/23 12:24 AM) Weight Obtained Via Bed scale (06/24/23 9:15 PM) Social History Social History Type Response Smoking Status Never (less than 100 in lifetime) entered on: 01/25/23 Sex Admission evaluation note * Vero Ritter DO: MODIFY, MODIFY, PERFORM, MODIFY, MODIFY, MODIFY, MODIFY, MODIFY, MODIFY, MODIFY, MODIFY, MODIFY, MODIFY, MODIFY, MODIFY, MODIFY, MODIFY, MODIFY, MODIFY, MODIFY Event Display: Admission Note Authored Date: [id number] Patient: ??ALLYSSA BEAUCHAMP ? Age:??32 Years?Sex:??Female?:??1990?? Chief Complaint/Reason for Consultation ETOH detox/ left AMA last night after intially being treated for ETOH. History of Present Illness Allyssa is a 32 y/o F with a PMHx of alcohol use disorder with previous alcohol withdrawal, delirium, seizures with frequent hospitalization, depression with prior suicide attempts with APTU hospitalization, anxiety, PCOS, GERD, who presents today for alcohol withdrawal.?? Patient was just admitted 06/23 for alcohol withdrawal but left AMA because she states that she was feeling better and wanted toleave.?? She states that she has been attempting to cut down on drinking but in doing so started feeling sick and having seizures.?? She tried to drink a bottle of vodka and sleep off the withdrawal,but had a seizure and caused her to fall out of bed.?? She fell and hit her head and therefore called the ambulance to take her to the hospital. She began getting tx with CIWA protocol and felt better and left AMA. But then she woke up from a nap after having withdrawal symptoms including nausea, tremor, anxiety.?? She drank vodka nips and came to the ED for further treatment. ?? Upon arriving to the hospital this time, her blood pressure was 123/88, heart rate 107, respiratoryrate 19, satting well on room air.?? CBC showed WBC of 12, anion gap of 20, lytes WNL, negative test, positive ethanol screen. ?? When leaving on 06/23 AMA, she was found to have a red eye, but did not have time to get tx for it asshe left. When coming back to the ED, she still had a red R eye and it was thought that she had conjunctivitis and was tx for it with topical erythromycin. ?? When I spoke to her at bedside, she was having tremors and sweats, but felt as though her medications were working. She was having significant discomfort on her R eye. She states that she has beenusing the same pair of contacts for 1 year and she has kept this pair of contacts in for 3 months. She has light sensitivity when turning the room lights on and can barely open it. She notes that there is discharge and pain. Her eye is very swollen and painful to touch. Given concern for contact keratitis, I called Dr. Hemanth Perez in ophthalmology. He stated to put tetracaine drops in the eyeto make them more comfortable to do an eye exam and call him back once I do so. In the meantime, tostart her on Moxifloxacin drops. ?? Of note, she used to drink several packs of beers throughout the day to the point that she has lost count. She tried to cut down by drinking 3 pints of vodka instead, but notes that she would still withdraw on this. She??sometimes would??smoke weed to mask her withdrawal symptoms.??She has been hospitalized on 06/13 to 06/14 when she left AMA with a CIWA of 28 and prior to that was hospitalized 06/08 to 06/12 and 03/30 to 04/05 for alcohol intoxication and intentional overdose on sertraline.?? Suhass left AMA during those hospitalizations as well.?? Review of Systems Review of systems is negative except for what is written in the subjective. ?? Objective Vital Signs?? Temperature: 98.1 DegF (06/23/23 22:02:00) Temperature Route: Oral (06/23/23 20:20:00) Pulse Rate:??100 bpm??High (06/23/23 22:02:00) Respiratory Rate: 18 br/min (06/23/23 22:02:00) Systolic Blood Pressure:??144 mm Hg??High (06/23/23 22:02:00) Diastolic Blood Pressure: 71 mm Hg (06/23/23 22:02:00) Blood pressure sites: Arm, right (06/23/23 20:20:00) Mean Arterial Pressure: 118 mm Hg (06/23/23 20:20:00) Pulse Pressure: 53 mm Hg (06/23/23 20:20:00) Oxygen Saturation: 98 % (06/23/23 22:02:00) Liters per Minute: 2 L/min (06/23/23 19:54:00) Mode of Delivery (Oxygen): Room air (06/23/23 22:02:00) Early Warning Score: 0 (06/23/23 23:20:34) ? Intake/Output? No Data Available ? Physical Exam General: Patient in no acute distress?? HEENT: swelling of the R eye, erythema of the eyelids, pain on touch, light sensitivity, purulent discharge, and difficulty opening the eye Respiratory: bilateral equal air entry, clear to auscultation with no wheezes or crackles. Adequaterespiratory rate and effort on room air.?? CVS: regular rate and rhythm, S1 and S2 present, no murmurs, rubs or gallops. No JVD.?? Abdomen: soft, non tender, non distended, bowel sounds present, no organomegaly.?? Extremities: no cyanosis, pulses present and equal bilaterally. no edema noted b/l.?? Neuro: alert and oriented x3. Cranial nerves II-XII grossly intact. Moving all extremities spontaneously. Normal tones, following simple commands.?? Derm: No signs of infection, surrounding skin is intact with no evidence of erythema, no purulent discharge, no tenderness?? Psych: Normal mood and affect?? Assessment/Plan Allyssa is a 32 y/o F with a PMHx of alcohol use disorder with previous alcohol withdrawal, delirium, seizures with frequent hospitalization, depression with prior suicide attempts with APTU hospitalization, anxiety, PCOS, GERD, who presents today for alcohol withdrawal. ?? Alcohol Withdrawal Delirium Tremens Multiple Previous Hospitalizations for Alcohol Withdrawal - arrived to the ED 06/23 for alcohol withdrawal, with DT, tremors, nausea; was started on CIWA protocol but left when she started to feel better - arrived again 8/ night when she started to have withdrawal symptoms again -??used to drink several packs of beers throughout the day to the point that she has lost count. She tried to cut down by drinking 3 pints of vodka instead, but notes that she would still withdraw onthis. - has been hospitalized on 06/13 to 06/14 when she left AMA with a CIWA of 28 and prior to that was hospitalized 06/08 to 06/12 and 03/30 to 04/05 for alcohol intoxication and intentional overdose on sertraline.?? She has left AMA during those hospitalizations as well.?? - wants to forgo social work/addiction medicine consults at this time as she states that she has a great support system already ?? Plan: - [facility] Protocol - continue Thiamine, Folic Acid, Multivitamins ?? R Eye Swelling/Pain Light sensitivity ?Contact Keratitis - pt initially had a red eye, thought to be conjunctivitis, tx with Erythromycin ointment X1 in theED - she states that she has been using the same pair of contact lens for 1 year and has been wearing this pair for 3 months without taking them out of her eye - on exam, she has swelling of the R eye, erythema of the eyelids, pain on touch, light sensitivity, purulent discharge, and difficulty opening the eye - given??concern for contact keratitis, I called Dr. Hemanth Perez in ophthalmology who said to put tetracaine drops in the eye to make them more comfortable to do an eye exam and call him back - In the meantime, he suggested??to start her on Moxifloxacin drops ?? Plan: - will do an eye exam and reach out to optho again for further recs - Will start on Moxifloxacin drops 1 drop TID for 7 days ?? Anxiety Depression Hx of Suicide Attempts with APTU Hospitalization - continue Trazodone 100 mg daily - continue Hydroxyzine 50 mg BID PRN - Continue Escitalopram 5 mg daily ?? Quality Measures: Code status: Full code Diet: Regular DVT ppx: Lovenox Med Rec confirmed with pt ?? Patient care was discussed with ??Jd Ritter, DO Internal Medicine, PGY2 Pager: [phone] Histories Allergies Allergies ?(Active and Proposed Allergies Only) No Known Medication Allergies? (Severity: Unknown severity, Onset: Unknown) NKA? (Severity: Unknown severity, Onset: Unknown) ? Past Medical History/Problem List Active Problems??(5) Alcohol use disorder, severe, dependence anxiety GERD without esophagitis PCOS (polycystic ovarian syndrome) Severe recurrent major depression ? Past Surgical History None ? Social History Alcohol Details:??Use: Current. ??Frequency: Daily. Substance Abuse Details:??Use: pt refuses to discuss. Tobacco Details:??Use: Never (less than 100 in lifetime). ? Family History No??significant PMHx that she can recall ?? Travel History Travel Outside [facility]: No ?? Medications Home Medications Escitalopram (escitalopram 5 mg oral tablet)?TAKE 1 TABLET BY MOUTH EVERY DAY IN THE MORNING HydrOXYzine (hydrOXYzine pamoate 50 mg oral capsule)?1?capsule?50?Milligram?By Mouth?2 times a day?as needed?Anxiety Multivitamin (Multivitamin Tablet)?1?tab(s)?By Mouth?Daily Trazodone (traZODone 100 mg oral tablet)?TAKE ONE AND ONE HALF (1.5) TABLETS BY MOUTH AT BEDTIME ? Inpatient Medications Medications (19) Active SCHEDULED: (10) Escitalopram 10 mg Tablet (escitalopram 10 mg oral tablet) ??5 mg, By Mouth, Daily in AM Folic Acid 1 mg Tablet (Folic Acid Tablet) ??1 mg, By Mouth, Daily Moxifloxacin 0.5% Ophthalmic Solution (3 mL) (Vigamox 0.5% Ophth) ??1 drops, Eye, Right, 3 times a day Multivitamin Tablet ??1 tablet, By Mouth, Daily NaCl 0.9% Flush 3ml (NaCL 0.9% Flush) ??3 mL, IV Push, Every 8 hours Proparacaine 0.5% Ophthalmic Solution (Proparacaine 0.5% Ophth) ??1 drops, Eye, Right, Once Pyridoxine 50 mg Tablet (Pyridoxine Tablet) ??50 mg, By Mouth, Daily Tetracaine 0.5% Ophthalmic Solution (Tetracaine 0.5% Ophth) ??2 drops, Eye, Right, Once Thiamine 100 mg Tablet (Thiamine Tablet) ??100 mg, By Mouth, 2 times a day Trazodone 50 mg Tablet (traZODone 50 mg oral tablet) ??150 mg, By Mouth, Daily at bedtime CONTINUOUS: (0) PRN: (9) Acetaminophen 325 mg Tablet (Acetaminophen Tablet) ??650 mg, By Mouth, Every 4 hours Dextromethorphan-Guaifenesin 20 mg-200 mg/10 mL Liqu UD (Robitussin DM Liquid) ??10 mL, By Mouth, Every 4 hours HydrOXYzine Pamoate 25mg Capsule (hydrOXYzine pamoate 25 mg oral capsule) ??50 mg, By Mouth, 2 times a day Melatonin 3 mg Tablet (Melatonin Tablet) ??3 mg, By Mouth, Daily at bedtime NaCl 0.9% Flush 3ml (NaCL 0.9% Flush) ??3 mL, IV Push, Every 8 hours Phenobarbital 65 mg/mL Inj (Phenobarbital Inj) ??65 mg 1 mL, IV Push, Every 2 hours Polyethylene Glycol 17 Gm Powder (MiraLax Powder) ??17 Gm 1 pack/packet, By Mouth, Daily Senna 8.6 mg / Docusate 50 mg tablet (Docusate/Senna Tablet) ??1 tablet, By Mouth, 2 times a day Simethicone 80 mg Chewable Tablet (Simethicone Tablet) ??80 mg, Chew, 3 times a day ? Results Recent Labs BLOOD COUNT & DIFF WBC 12.0 k/mm3 (High)?? 06/23/2023 20:38 RBC 4.87 m/mm3 ()?? 06/23/2023 20:38 Hgb 13.0 Gm/dL ()?? 06/23/2023 20:38 Hct 39.2 % ()?? 06/23/2023 20:38 MCV 80.5 femtoliters ()?? 06/23/2023 20:38 MCH 26.7 pg (Low)?? 06/23/2023 20:38 MCHC 33.2 g/dL ()?? 06/23/2023 20:38 Platelet Count 260 k/mm3 ()?? 06/23/2023 20:38 RDW-SD 48.5 femtoliters (High)?? 06/23/2023 20:38 MPV 9.3 femtoliters (Low)?? 06/23/2023 20:38 Nucleated RBC (Automated) 0.0 #/100 WBC'S ()?? 06/23/2023 20:38 Abs. NRBC 0.0 k/mm3 ()?? 06/23/2023 20:38 Abs. Neut 10.1 k/mm3 (High)?? 06/23/2023 20:38 Abs. Lymph 1.4 k/mm3 ()?? 06/23/2023 20:38 Abs. [place] 0.4 k/mm3 ()?? 06/23/2023 20:38 Abs. Eo 0.0 k/mm3 ()?? 06/23/2023 20:38 Abs. Baso 0.1 k/mm3 ()?? 06/23/2023 20:38 Neut % 83.9 % (High)?? 06/23/2023 20:38 Lymph % 11.8 % (Low)?? 06/23/2023 20:38 [place] % 3.5 % (Low)?? 06/23/2023 20:38 Eos % 0.1 % ()?? 06/23/2023 20:38 Baso % 0.4 % ()?? 06/23/2023 20:38 Imm Gran 0.3 % ()?? 06/23/2023 20:38 Abs. Imm Gran 0.0 k/mm3 ()?? 06/23/2023 20:38 ?? CHEM GENERAL Sodium 139 mmol/L ()?? 06/23/2023 20:07 Potassium 4.4 mmol/L ()?? 06/23/2023 20:07 Chloride 98 mmol/L ()?? 06/23/2023 20:07 Bicarbonate Level 21 mmol/L (Low)?? 06/23/2023 20:07 Anion Gap 20 (High)?? 06/23/2023 20:07 Glucose Level 73 mg/dL ()?? 06/23/2023 20:07 BUN 5 mg/dL (Low)?? 06/23/2023 20:07 Creatinine-Blood 0.6 mg/dL ()?? 06/23/2023 20:07 Estimated GFR Creatinine 124 ML/MIN/1.73 M2 ()?? 06/23/2023 20:07 Calcium 9.0 mg/dL ()?? 06/23/2023 20:07 Phosphorus 3.1 mg/dL ()?? 06/23/2023 05:37 Magnesium 1.6 mg/dL ()?? 06/23/2023 05:37 Protein, Total 6.9 Gm/dL ()?? 06/23/2023 05:37 Albumin 4.1 Gm/dL ()?? 06/23/2023 05:37 AG Ratio 1.5 ()?? 06/23/2023 05:37 Alkaline Phosphatase 89 units/L ()?? 06/23/2023 05:37 AST (SGOT) HEMOLYZED units/L ()?? 06/23/2023 05:37 ALT (SGPT) 25 units/L ()?? 06/23/2023 05:37 Bilirubin, Total 0.2 mg/dL ()?? 06/23/2023 05:37 ?? ENDOCRINE/TUMOR MARKER Blood <1 mIU/mL ()?? 06/23/2023 20:39 ?? TOXICOLOGY/TDM Ethanol, Serum or Plasma 290 mg/dL (Abnormal)?? 06/23/2023 20:07 Barbiturate Screen, Urine POSITIVE (Abnormal)?? 06/23/2023 11:57 Cannabinoid Screen, Urine POSITIVE (Abnormal)?? 06/23/2023 11:57 Cocaine Metabolite Screen, Urine NONE DETECTED ()?? 06/23/2023 11:57 Benzodiazepine Screen, Urine NONE DETECTED ()?? 06/23/2023 11:57 Amphetamine Screen, Urine NONE DETECTED ()?? 06/23/2023 11:57 Opiate Screen, Urine NONE DETECTED ()?? 06/23/2023 11:57 ?? URINE OTHER Est Creatinine Clearance 113.24 mL/min ()?? 06/23/2023 21:14 ?? VIROLOGY COVID-19 by RT-PCR NEGATIVE ()?? 06/23/2023 20:40 ? Urinalysis Est Creatinine Clearance: 113.24 mL/min (21:14) ?? Microbiology ?? COVID-19 (Novel Coronavirus), Rapid PCR?? Completed?? Source: Nasal Body Site: Nose Collected Dt/Tm: 06/23/2023 20:06 Last Updated Dt/Tm: 06/23/2023 21:54 ? Blood Gases?? No qualifying data available. ?? Uric/LDH?? No qualifying data available. ?? * Juanito [...] abuse came with a complaint of alcohol intoxication and symptoms of alcohol withdrawal. ??She signed AMA yesterday. ??Her right was red with mucus- like sticky discharge. ??Patient does not have any pain with the movement of the eye. ??There is some inflammation of the right eyelid. ??Unlikely preseptal/orbital cellulitis. ??Most likely patient have bacterial conjunctivitis. ??We will consult with the ophthalmology for further recommendation. ??We will continue with the antibiotic eyedrops. ?? She i we will continue with the CIWA score, thiamine, folic acid. ??s not interested in detoxification. ??Alcohol level of 290. ??Patient had a slightly high anion gap on blood work-up. ??Urine toxicology positive for barbiturates and cannabinoids. ??He denied any active suicidalthoughts. * Vero Ritter DO: PERFORM Event Display: Admission Note Authored Date: [id number] I assessed the patient with Dr. Ralph (ED provider). During this time, we placed some numbing eyedrops to assist in assessment. Pt had no pain with eye movements. Had some light sensitivity (thoughthis could also be d/t withdrawals). She had some eye pain, no itching. On slit lamp exam, there was no signs of abrasion or ulceration. This is likely bacterial conjunctivitis, though given contact use, will need pseudomonal coverage. Will continue with Moxifloxacin eye drops. Will need to reach out to optho again in the AM for further recs. At this time, lesser concern for emergency. * Vero Ritter DO: PERFORM Event Display: Admission Note Authored Date: I spoke to Dr. Perez??once more, who stated that if the pt did not have any areas of white on the cornea??suggestive of keratitis, to give moxifloxacin 4X/day for 7 days and then to follow up with whoever prescribes her contacts. Can continue to reach out to him for questions or updates if needed. Hospital Progress note * Kevin WARD, Wilber Ventura: PERFORM Event Display: Progress Note Hospital Authored Date: Patient: ??ALLYSSA BEAUCHAMP ? Age:??32 Years?Sex:??Female?:??1990?? Subjective received IV lorazepam this morning for elevated CIWA score states that she was drinking a pint of vodka per day eyes are uncomfortable but she thinks??a little better with the eye drops Review of Systems ?Constitutional: no fevers/chills ?Eyes:??eye redness and discomfort ?ENT: no ear pain, no change in hearing ?Cardiovasc: no chest pain, no palpitations, no PND, no orthopnoea ?Resp: no cough, no sputum, no haemoptysis, no dyspnoea ?GI: no abdo pain, no vomiting, no diarrhoea ? Objective Measurements?? Height: 161 cm (06/25/23) Weight: 68 kg (06/24/23) Dry Weight: 68 kg (06/24/23) Body Mass Index:??26.23 kg/m2??High (06/24/23) ? Vital Signs?? Temperature: 99.2 DegF (06/25/23 12:35:00) Temperature Route: Oral (06/25/23 12:35:00) Pulse Rate:??95 bpm??High (06/25/23 12:35:00) Respiratory Rate: 16 br/min (06/25/23 12:35:00) Systolic Blood Pressure: 123 mm Hg (06/25/23 12:35:00) Diastolic Blood Pressure: 84 mm Hg (06/25/23 12:35:00) Blood pressure sites: Arm, left (06/25/23 12:35:00) Mean Arterial Pressure: 97 mm Hg (06/25/23 12:35:00) Pulse Pressure: 39 mm Hg (06/25/23 12:35:00) Oxygen Saturation: 99 % (06/25/23 12:35:00) Mode of Delivery (Oxygen): Room air (06/25/23 12:35:00) Early Warning Score: 1 (06/25/23 12:36:35) ? Intake/Output? 06/23 22:23 0806 07:00 08/05 07:00 08 07:00 0803 07:00 ?? 06/25 15:05 06/25 15:05 06/25 06:59 0805 06:59 08 06:59 Intake ? 50 ? 50 ?0 ?0 ?0 Output ?0 ?0 ?0 ?0 ?0 Net Total ? 50 ? 50 ?0 ?0 ?0 ? Urine Count ?1 ?0 ?1 ?0 ?0 ? Physical Exam Gen: comfortable, well: HEENT: conjunctival injection bilaterally. no purulent discharge. Chest: CTA, no wheeze/crackles CVS: no M/G/R, no JVD Abdo: soft, non-tender Ext: no oedema, no cyanosis or clubbing Neuro: A+Ox3. no tremor Psych: WNL Assessment/Plan Assessment:??Allyssa is a 32 y/o F with a PMHx of alcohol use disorder with previous alcohol withdrawal, delirium, seizures with frequent hospitalization, depression with prior suicide attempts with APTU hospitalization, anxiety, PCOS, GERD, who presents today for alcohol withdrawal. ?? Alcohol Withdrawal Delirium Tremens Multiple Previous Hospitalizations for Alcohol Withdrawal - arrived to the ED 06/23 for alcohol withdrawal, with DT, tremors, nausea; was started on CIWA protocol but left when she started to feel better - arrived again 06/23 night when she started to have withdrawal symptoms again - used to drink several packs of beers throughout the day to the point that she has lost count. Shetried to cut down by drinking 3 pints of vodka instead, but notes that she would still withdraw on this. - has been hospitalized on 06/13 to 06/14 when she left AMA with a CIWA of 28 and prior to that was hospitalized 06/08 to 06/12 and 03/30 to 04/05 for alcohol intoxication and intentional overdose on sertraline. She has left AMA during those hospitalizations as well. - wants to forgo social work/addiction medicine consults at this time as she states that she has a great support system already ?? Plan: ??- CIWA Protocol ??- continue Thiamine, Folic Acid, Multivitamins ?? Conjunctivitis admitting resident discussed with ophthalmology was related to prolonged contact lens usage continue moxifloxacin eye drops ?? Anxiety Depression Hx of Suicide Attempts with APTU Hospitalization ??- continue Trazodone 100 mg daily ??- continue Hydroxyzine 50 mg BID PRN ??- Continue Escitalopram 5 mg daily ?? Quality Measures: ??Code status: Full code ??Diet: Regular ??DVT ppx: Lovenox ? * Jun Landa DO: PERFORM, MODIFY Event Display: Progress Note Hospital Authored Date: Patient: ??ALLYSSA BEAUCHAMP ? Age:??32 Years?Sex:??Female?:??1990?? Subjective Patient seen and examined at the bedside. Review of Systems General:??No fevers, no chills. HEENT:??No headaches,??no visual changes,??no throat pain. Cardiovascular:??No chest pain,??no palpitations. Pulmonary:??No shortness of breath, no hemoptysis. Gastrointestinal:??No abdominal pain,??no nausea, no vomiting,??no diarrhea. Past Medical History Active Problems??(5) Alcohol use disorder, severe, dependence anxiety GERD without esophagitis PCOS (polycystic ovarian syndrome) Severe recurrent major depression ? Objective Measurements?? Height: 161 cm (06/24/23) Weight: 68 kg (06/24/23) Dry Weight: 68 kg (06/24/23) Body Mass Index:??26.23 kg/m2??High (06/24/23) ? Vital Signs?? Temperature: 98.7 DegF (06/24/23 04:00:00) Temperature Route: Oral (06/24/23 04:00:00) Pulse Rate:??95 bpm??High (06/24/23 12:06:00) Respiratory Rate: 20 br/min (06/24/23 12:06:00) Systolic Blood Pressure:??140 mm Hg??High (06/24/23 12:06:00) Diastolic Blood Pressure:??101 mm Hg??High (06/24/23 12:06:00) Blood pressure sites: Arm, left (06/24/23 12:06:00) Mean Arterial Pressure: 95 mm Hg (06/24/23 03:18:00) Pulse Pressure: 39 mm Hg (06/24/23 12:06:00) Oxygen Saturation: 97 % (06/24/23 12:06:00) Liters per Minute: 2 L/min (06/23/23 19:54:00) Mode of Delivery (Oxygen): Room air (06/24/23 12:06:00) Early Warning Score: 1 (06/24/23 12:08:48) ? Intake/Output? No Data Available ? Physical Exam General:??No acute distress. HEENT:??Normocephalic atraumatic,??no scleral icterus. (+) swelling of the R eyelid with??purulent discharge CVS:??Regular rate and rhythm. Respiratory:??No accessory muscle use,??no wheezes rales or rhonchi. Gas intestinal:??Abdomen soft nontender nondistended. Extremities: No clubbing, no cyanosis. Neurological: No focal deficits _ Inpatient Medications Medications (20) Active SCHEDULED: (9) Enoxaparin 40 mg Inj (Enoxaparin Inj) ??40 mg 0.4 mL, Subcutaneous Injection, Daily Escitalopram 10 mg Tablet (escitalopram 10 mg oral tablet) ??5 mg, By Mouth, Daily in AM Folic Acid 1 mg Tablet (Folic Acid Tablet) ??1 mg, By Mouth, Daily Moxifloxacin 0.5% Ophthalmic Solution (3 mL) (Vigamox 0.5% Ophth) ??1 drops, Eye, Right, 4 times a day Multivitamin Tablet ??1 tablet, By Mouth, Daily NaCl 0.9% Flush 3ml (NaCL 0.9% Flush) ??3 mL, IV Push, Every 8 hours Pyridoxine 50 mg Tablet (Pyridoxine Tablet) ??50 mg, By Mouth, Daily Thiamine 100 mg Tablet (Thiamine Tablet) ??100 mg, By Mouth, 2 times a day Trazodone 50 mg Tablet (traZODone 50 mg oral tablet) ??150 mg, By Mouth, Daily at bedtime CONTINUOUS: (0) PRN: (11) Acetaminophen 325 mg Tablet (Acetaminophen Tablet) ??650 mg, By Mouth, Every 4 hours Dextromethorphan-Guaifenesin 20 mg-200 mg/10 mL Liqu UD (Robitussin DM Liquid) ??10 mL, By Mouth, Every 4 hours HydrOXYzine Pamoate [...] ??3 mL, IV Push, Every 8 hours Polyethylene Glycol 17 Gm Powder (MiraLax Powder) ??17 Gm 1 pack/packet, By Mouth, Daily Senna 8.6 mg / Docusate 50 mg tablet (Docusate/Senna Tablet) ??1 tablet, By Mouth, 2 times a day Simethicone 80 mg Chewable Tablet (Simethicone Tablet) ??80 mg, Chew, 3 times a day ? Results CBC, CBC w/Diff?? CBC?? Differential?? WBC: 8.2 k/mm3 (05:39) Abs. Neut:??10.1 k/mm3??High (20:38) RBC: 4.62 m/mm3 (05:39) Abs. Lymph: 1.4 k/mm3 (20:38) Hct: 36.7 % (05:39) Abs. [place]: 0.4 k/mm3 (20:38) RDW-SD:??47.6 femtoliters??High (05:39) Abs. Eo: 0 k/mm3 (20:38) Nucleated RBC (Automated): 0 #/100 WBC'S (05:39) Abs. Baso: 0.1 k/mm3 (20:38) Abs. NRBC: 0 k/mm3 (05:39) Neut %:??83.9 %??High (20:38) ?? Lymph %:??11.8 %??Low (20:38) ?? [place] %:??3.5 %??Low (20:38) ?? Eos %: 0.1 % (20:38) ?? Baso %: 0.4 % (20:38) ?? Imm Gran: 0.3 % (20:38) ?? Abs. Imm Gran: 0 k/mm3 (20:38) ? BMP, Mg, and Phos Anion Gap: 14 (05:39) Bicarbonate Level: 25 mmol/L (05:39) BUN: 6 mg/dL (05:39) Calcium: 8.7 mg/dL (05:39) Chloride:??96 mmol/L??Low (05:39) Creatinine-Blood: 0.6 mg/dL (05:39) Estimated GFR Creatinine: 120 ML/MIN/1.73 M2 (05:39) Glucose Level: 74 mg/dL (05:39) Magnesium:??1.5 mg/dL??Low (05:39) Phosphorus: 3.5 mg/dL (05:39) Potassium: 3.9 mmol/L (05:39) Sodium: 135 mmol/L (05:39) ?? Microbiology ?? COVID-19 (Novel Coronavirus), Rapid PCR?? Completed?? Source: Nasal Body Site: Nose Collected Dt/Tm: 06/23/2023 20:06 Last Updated Dt/Tm: 06/23/2023 21:54 ? Assessment/Plan Assessment:??Allyssa is a 32 y/o F with a PMHx of alcohol use disorder with previous alcohol withdrawal, delirium, seizures with frequent hospitalization, depression with prior suicide attempts with APTU hospitalization, anxiety, PCOS, GERD, who presents today for alcohol withdrawal. ?? Alcohol abuse with withdrawal (F10.139):??Continue with CIWA protocol,??thiamine, folic acid, and multivitamins. ?? Blepharitis of right eye (H01.003):??Continue with empiric antibiotics,??warm compresses as needed. ?? Dischar ? Note * Suzette Goodrich RN: PERFORM Event Display: Discharge/Transfer Note Hospital Authored Date: [id number] Nursing Discharge Note Entered On: 06/26/2023 12:51 EDT Performed On: 06/26/2023 12:50 EDT by Suzette Goodrich RN Nursing Discharge Note 2 Discharge Time : 06/26/2023 13:11 EDT Suzette Goodrich RN - 06/26/2023 17:53 EDT Discharge Level of Care at Discharge : Home/[facility] Patient Left Unit Via : Ambulatory Patient Accompanied Off Unit with : Responsible adult, Other: STAFF DC Instructions Provided & Signed by Pt : Yes Patient Understands D/C Instructions : Yes Patient Instructions Discharge Signed : Yes Did Pt have Specialty Bed or Wound Vac : No Suzette Goodrich RN - 06/26/2023 12:50 EDT * Kevin WARD, Wilber Ventura: PERFORM Event Display: Discharge/Transfer Note Hospital Authored Date: Patient: ??BEAUCHAMP, ALLYSSA ? Age:??32 Years?Sex:??Female?:??1990?? Patient Information Discharge Location: Primary Care Physician: Mike Franks MD Admit Date/Time: 06/23/23 22:23 Discharge Disposition Discharge Disposition: Home: No Services Discharge Diagnosis Alcohol abuse with withdrawal (F10.139) Conjunctivitis (H10.9) ?? _ Discharge Medications Escitalopram (escitalopram 5 mg oral tablet)?TAKE 1 TABLET BY MOUTH EVERY DAY IN THE MORNING Folic Acid (folic acid 1 mg oral [...] (1.5) TABLETS BY MOUTH AT BEDTIME ? Medications Started naltrexone moxifloxacin ophthalmic solution Medications Discontinued none Doses Changed none PCP Follow-Up/Heads-Up please ensure that patient follows up with ophthalmology please continue to stress the importance of alcohol cessation and continue to prescribe natrexone if this is effective Objective Assessment and Plan Assessment:??Allyssa is a 32 y/o F with a PMHx of alcohol use disorder with previous alcohol withdrawal, delirium, seizures with frequent hospitalization, depression with prior suicide attempts with APTU hospitalization, anxiety, PCOS, GERD, who??presented to the hospital??for alcohol withdrawal. ?? Alcohol Withdrawal Delirium Tremens Multiple Previous Hospitalizations for Alcohol Withdrawal - arrived to the ED 06/23 for alcohol withdrawal, with DT, tremors, nausea; was started on CIWA protocol but left when she started to feel better - arrived again 06/23 night when she started to have withdrawal symptoms again - used to drink several packs of beers throughout the day to the point that she has lost count. Shetried to cut down by drinking 3 pints of vodka instead, but notes that she would still withdraw on this. - has been hospitalized on 06/13 to 06/14 when she left AMA with a CIWA of 28 and prior to that was hospitalized 06/08 to 06/12 and 03/30 to 04/05 for alcohol intoxication and intentional overdose on sertraline. She has left AMA during those hospitalizations as well. - wants to forgo social work/addiction medicine consults at this time as she states that she has a great support system already On 06/26 patient is alert and oriented She is not scoring on CIWA has not received prn lorazepam since 06/25 patient is requesting to leave Reports that she will follow up with her IOP program does not want any other referrals states that she has had success with naltrexone in the past and requests a prescription for this Recs - naltrexone 50mg daily - counseled on alcohol cessation - continue Thiamine, Folic Acid, Multivitamins ?? Conjunctivitis admitting resident discussed with ophthalmology was related to prolonged contact lens usage continue moxifloxacin eye drops for 7 days I have advised patient to follow up with ophthalmology ?? Anxiety Depression Hx of Suicide Attempts with APTU Hospitalization continue Trazodone, hydroxyzine and escitalopram ?? Code status: Full code ? Vital Signs?? Temperature: 97.9 DegF (06/26/23 11:29:00) Temperature Route: Oral (06/26/23 11:29:00) Pulse Rate:??94 bpm??High (06/26/23 11:29:00) Respiratory Rate: 18 br/min (06/26/23 11:29:00) Systolic Blood Pressure: 130 mm Hg (06/26/23 11:29:00) Diastolic Blood Pressure:??90 mm Hg??High (06/26/23 11:29:00) Blood pressure sites: Arm, left (06/26/23 11:29:00) Mean Arterial Pressure: 103 mm Hg (06/26/23 11:29:00) Pulse Pressure: 40 mm Hg (06/26/23 11:29:00) Oxygen Saturation: 100 % (06/26/23 11:29:00) Mode of Delivery (Oxygen): Room air (06/26/23 11:29:00) Early Warning Score: 2 (06/26/23 11:30:01) ? . Physical Exam Gen: comfortable, well: HEENT: bilateral conjunctival injection R>L. no purulent discharge. reports normal visual acuity- able to read small print at bedside Chest: CTA, no wheeze/crackles CVS: no M/G/R, no JVD Abdo: soft, non-tender Ext: no oedema, no cyanosis or clubbing Neuro: A+Ox3. no tremor Psych: WNL Pending Results No Pending Results Patient Education Titles Naltrexone Oral Tablet?? Bacterial Conjunctivitis?? Moxifloxacin Ophthalmic Solution?? Alcoholism: Getting Help?? Alcohol Withdrawal?? Follow-Up Appointments Added Follow Up ?Time Frame ?Comments Jose Manuelrob Perez?1 week?please call to arrange a follow up appointment Mike Franks MD?1 to 2 weeks Home Health Face to Face ^[facility] Results Discharge Labs BLOOD COUNT & DIFF WBC 8.2 k/mm3 ()?? 06/24/2023 05:39 RBC 4.62 m/mm3 ()?? 06/24/2023 05:39 Hgb 12.0 Gm/dL ()?? 06/24/2023 05:39 Hct 36.7 % ()?? 06/24/2023 05:39 MCV 79.4 femtoliters (Low)?? 06/24/2023 05:39 MCH 26.0 pg (Low)?? 06/24/2023 05:39 MCHC 32.7 g/dL (Low)?? 06/24/2023 05:39 Platelet Count 225 k/mm3 ()?? 06/24/2023 05:39 RDW-SD 47.6 femtoliters (High)?? 06/24/2023 05:39 MPV 9.5 femtoliters ()?? 06/24/2023 05:39 Nucleated RBC (Automated) 0.0 #/100 WBC'S ()?? 06/24/2023 05:39 Abs. NRBC 0.0 k/mm3 ()?? 06/24/2023 05:39 Abs. Neut 10.1 k/mm3 (High)?? 06/23/2023 20:38 Abs. Lymph 1.4 k/mm3 ()?? 06/23/2023 20:38 Abs. [place] 0.4 k/mm3 ()?? 06/23/2023 20:38 Abs. Eo 0.0 k/mm3 ()?? 06/23/2023 20:38 Abs. Baso 0.1 k/mm3 ()?? 06/23/2023 20:38 Neut % 83.9 % (High)?? 06/23/2023 20:38 Lymph % 11.8 % (Low)?? 06/23/2023 20:38 [place] % 3.5 % (Low)?? 06/23/2023 20:38 Eos % 0.1 % ()?? 06/23/2023 20:38 Baso % 0.4 % ()?? 06/23/2023 20:38 Imm Gran 0.3 % ()?? 06/23/2023 20:38 Abs. Imm Gran 0.0 k/mm3 ()?? 06/23/2023 20:38 ?? CHEM GENERAL Sodium 136 mmol/L ()?? 06/26/2023 04:22 Potassium 3.8 mmol/L ()?? 06/26/2023 04:22 Chloride 98 mmol/L ()?? 06/26/2023 04:22 Bicarbonate Level 25 mmol/L ()?? 06/26/2023 04:22 Anion Gap 13 ()?? 06/26/2023 04:22 Glucose Level 74 mg/dL ()?? 06/24/2023 05:39 BUN 8 mg/dL ()?? 06/26/2023 04:22 Creatinine-Blood 0.6 mg/dL ()?? 06/26/2023 04:22 Estimated GFR Creatinine 122 ML/MIN/1.73 M2 ()?? 06/26/2023 04:22 Calcium 8.7 mg/dL ()?? 06/24/2023 05:39 Phosphorus 3.8 mg/dL ()?? 06/26/2023 04:22 Magnesium 1.7 mg/dL ()?? 06/26/2023 04:22 ?? ENDOCRINE/TUMOR MARKER Blood <1 mIU/mL ()?? 06/23/2023 20:39 ? TOXICOLOGY/TDM Ethanol, Serum or Plasma 290 mg/dL (Abnormal)?? 06/23/2023 20:07 ? URINE OTHER Est Creatinine Clearance 113.24 mL/min ()?? 06/23/2023 21:14 ? VIROLOGY COVID-19 by RT-PCR NEGATIVE ()?? 06/23/2023 20:40 ? 33_ minutes spent on discharge * Suzette Goodrich RN: PERFORM Event Display: Patient Education/Instruction Authored Date: Inpatient Adult Discharge Instructions [address] [address] Name: ALLYSSA BEAUCHAMP : 1990 Visit: 06/23/2023 22:23:00 Current Date: 06/26/2023 12:53 Account: [id number] Inpatient Adult Discharge Instructions We would like [...] and their families. Surveys are administered by [employer] ?? If further treatment with your primary care physician or another doctor is recommended, it is important for you to keep the appointment. Call your primary care physician or return to the Emergency Department immediately if your condition worsens, fails to improve, or new symptoms develop. If you need to find a doctor, you can call [facility] [employer] [facility] for a referral at [phone] or toll free at [phone] or log in to [email or web address].. ?? You can view and manage your care through the patient portal or by using a health care brisa of your choosing. [employer] is a website that allows you to securely view your medical information including your hospital discharge summary, office visit summaries, medications and follow-up visits. You can also request appointments, renew medications, and request access to your medical information using a health care brisa of your choosing, or just ask a question. You can enroll at [email or web address] or register during your next office visit. You have been discharged from [facility], Patient Care Unit: S3. If you have any questions regarding these instructions after you leave, please call us and we will be happy to assist you. [facility] Your Care Team Attending Physician Kevin WARD, Wilber Ventura Consulting Providers Ana WARD, Jose Manuel Discharging Providers Kevin WARD, Wilber Ventura Reason for Admission ETOH detox/ left AMA last night after intially being treated for ETOH. Your Diagnosis Alcohol abuse with withdrawal Blepharitis of right eye Conjunctivitis Tests Performed Below is a partial list of the tests performed during your hospitalization. You may have had other tests and procedures not included in this list. Please discuss all test results with your provider. Alcohol Level Basic Metabolic Panel Blood Urea Nitrogen CBC CBC w/ Differential COVID-19 (Novel Coronavirus), Rapid PCR Creatinine Electrolytes Magnesium Level Phosphorus Level BLOOD QUANTITATIVE Primary Care Provider Mike Franks MD Advance Directive Health Care Proxy on File Yes - Health Care Proxy Discharge Vitals Temperature: 98.5 DegF Height: 161 cm Pulse Rate:??103 bpm??High Weight: 68 kg Respiratory Rate: 18 br/min Body Mass Index:??26.23 kg/m2??High Systolic Blood Pressure: 126 mm Hg Body surface area: 1.74 Diastolic Blood Pressure:??85 mm Hg??High ?? Oxygen Saturation: 99 % ?? Studies Pending All tests and labs ordered during this hospital stay have been completed unless listed below. Please discuss all pending results with your provider listed above in these instructions. ?? No incomplete studies found What to do next Instructions From Your Doctor Discharge Orders You Need to Schedule the Following Appointments Follow Up with??Jose Manuel Perez When:??Within 1 week Why: please call to arrange a follow up appointment Where: [address] [place] [address] [facility], [place] [address]- [facility] (1) Follow Up with??Mike Franks MD When:??Within 1 to 2 weeks Where: [address] [place] [address]- [facility] (1) Discharge Medications NITO ALLYSSA :1990 Visit Date:06/23/2023 Medications: Please continue your medications until treatment is completed or stopped by your provider. Medications not listed below should be discontinued. Discuss any questions related to medications with your provider. What How Much When Instructions Next Dose New Folic Acid (folic acid 1 mg oral tablet) 1 Milligram Oral Daily 06/27 New moxifloxacin ophthalmic (moxifloxacin 0.5% ophthalmic solution) 1 Drops Both eyes 4 times a day Duration: 7 Days Pickup at [facility]/pharmacy #[id number] 2p06/26 New Naltrexone (naltrexone 50 mg oral tablet) 1 tab(s) Oral Daily Duration: 30 Days Refills: 1 Pickup at [facility]/pharmacy #06/27 New Thiamine (thiamine 100 mg oral tablet) 100 Milligram Oral Twice a day 906/26 Changed Multivitamin (multivitamin Multiple Vitamins oral tablet) 1 tab(s) Oral Daily Duration: 30 Days Pickup at [facility]/pharmacy #06/27 Changed Trazodone (traZODone 100 mg oral tablet) TAKE ONE AND ONE HALF (1.5) TABLETS BY MOUTH AT BEDTIME ?? 906/26 see instructions Unchanged Escitalopram (escitalopram 5 mg oral tablet) TAKE 1 TABLET BY MOUTH EVERY DAY IN THE MORNING ?? 06/27 Unchanged HydrOXYzine (hydrOXYzine pamoate 50 mg oral capsule) 1 capsule Oral Twice a day as needed for Anxiety as needed Pharmacy Information [facility]/pharmacy #[id number]: [address], [place] [phone] Test Results Below is a partial list of the most recent Laboratory test results done prior to this discharge. You may have had other tests and procedures not included in this list. Please discuss all test resultswith your provider. Est Creatinine Clearance - 113.24 mL/min (06/23/2023) Alcohol Level (06/23/2023) ???Ethanol, Serum or Plasma - 290 mg/dL Basic Metabolic Panel (06/24/2023) ???Sodium - 135 mmol/L???Potassium - 3.9 mmol/L???Chloride - 96 mmol/L???Bicarbonate Level - 25 mmol/L???Anion Gap - 14???Glucose Level - 74 mg/dL???BUN - 6 mg/dL???Creatinine-Blood - 0.6 mg/dL???Estimated GFR Creatinine - 120 ML/MIN/1.73 M2???Calcium - 8.7 mg/dL Blood Urea Nitrogen (06/26/2023) ???BUN - 8 mg/dL CBC (06/24/2023) ???WBC - 8.2 k/mm3???RBC - 4.62 m/mm3???Hgb - 12.0 Gm/dL???Hct - 36.7 %???MCV - 79.4 femtoliters???MCH - 26.0 pg???MCHC - 32.7 g/dL???Platelet Count - 225 k/mm3???RDW-SD - 47.6 femtoliters???MPV - 9.5 femtoliters???Nucleated RBC (Automated) - 0.0 #/100 WBC'S???Abs. NRBC - 0.0 k/mm3 CBC w/ Differential (06/23/2023) ???WBC - 12.0 k/mm3???RBC - 4.87 m/mm3???Hgb - 13.0 Gm/dL???Hct - 39.2 %???MCV - 80.5 femtoliters???MCH - 26.7 pg???MCHC - 33.2 g/dL???Platelet Count - 260 k/mm3???RDW-SD - 48.5 femtoliters???MPV - 9.3 femtoliters???Nucleated RBC (Automated) - 0.0 #/100 WBC'S???Abs. NRBC - 0.0 k/mm3???Abs. Neut - 10.1 k/mm3???Abs. Lymph - 1.4 k/mm3???Abs. [place] - 0.4 k/mm3???Abs. Eo - 0.0 k/mm3???Abs. Baso - 0.1 k/mm3???Neut % - 83.9 %???Lymph % - 11.8 %???[place] % - 3.5 %???Eos % - 0.1 %???Baso % - 0.4 %???Imm Gran - 0.3 %???Abs. Imm Gran - 0.0 k/mm3 COVID-19 (Novel Coronavirus), Rapid PCR (06/23/2023) ???COVID-19 by RT-PCR - NEGATIVE Creatinine (06/26/2023) ???Creatinine-Blood - 0.6 mg/dL???Estimated GFR Creatinine - 122 ML/MIN/1.73 M2 Electrolytes (06/26/2023) ???Sodium - 136 mmol/L???Potassium - 3.8 mmol/L???Chloride - 98 mmol/L???Bicarbonate Level - 25 mmol/L???Anion Gap - 13 Magnesium Level (06/26/2023) ???Magnesium - 1.7 mg/dL Phosphorus Level (06/26/2023) ???Phosphorus - 3.8 mg/dL BLOOD QUANTITATIVE (06/23/2023) ? ?Blood - <1 mIU/mL Allergies (NKA means No Known Allergies) NKA No Known Medication Allergies Problems Active Problems??(5) Alcohol use disorder, severe, dependence?? anxiety?? GERD without esophagitis?? PCOS (polycystic ovarian syndrome)?? Severe recurrent major depression?? Education Materials Below is the list of Educational Leaflet Providered with your Discharge Instructions. Naltrexone Oral Tablet?? Bacterial Conjunctivitis?? Moxifloxacin Ophthalmic Solution?? Alcoholism: Getting Help?? Alcohol Withdrawal?? Valuables and Belongings I fully understand and agree that [facility] accepts no responsibility for all my [...] to send valuables and belongings home. ?? No Valuables/Belongings: No valuables/belongings present Review of Valuable and Belonging List: With patient Date for Pt to Sign Valuables/Belongings: 06/26/23 12:43:00 ?? Other Discharge Information ? Case Management Discharge Plan?? Discharge Plan?? Discharge Level of Care at Discharge: Home/[facility] ?? Pulmonary Rehab Status?? Pulmonary Rehab Discharge Status?? Respiratory Rate: 18 br/min ? Common Emergency Awareness Tips IS IT [...] are strongly encouraged to quit. Please call [facility] [employer] Link at [phone] or [phone] or log in to [email or web address] for referrals to smoking cessation programs. ?? 539 Suicide & Crisis Lifeline is available 12/06 if you or someone you know needs to find a reason to keep living. By calling 832 you'll be connected to a skilled, trained counselor at a crisis center in your area. INPATIENT DISCHARGE INSTRUCTIONS SIGNATURE PAGE ALLYSSA BEAUCHAMP Location:[facility] Registration Date and Time:06/23/2023 22:23 EDT Primary Care Physician: Mike Franks MD, Attending Physician: Wilber Brown MD, I ALLYSSA BEAUCHAMP, have received the above patient education materials/instructions and have verbalized understanding. If ambulance or transport services are being used I further acknowledge being given a choice of service. ?? If you need to contact me, please call me at this number: . Patient/Superintendent Power Name: Patient/Superintendent Power Signature: Relationship to Patient: Witness Name/Signature: Date: * Wilber Brown MD: SIGN, PERFORM, SIGN, VERIFY Event Display: Patient Education Handout Authored Date: [id number] * Wilber Brown MD: PERFORM Event Display: Patient Education Leaflets Authored Date: [id number] Naltrexone Oral Tablet ?? [id number] Naltrexone Oral Tablet Brands: [employer]ses This medicine is used for the following purposes: ??? drug addiction ??? alcohol dependence ?? Instructions Swallow with a full glass (8 oz) of water unless your doctor gives you different instructions. You may take with food to prevent stomach upset. This medicine will work best if you take it at about the same time every day. Store at room temperature away from heat, light, and moisture. Do not keep in the bathroom. It is important that you keep taking each dose of this medicine on time even if you are feeling well. If you forget to take a dose on time, take it as soon as you remember. If it is almost time for thenext dose, do not take the missed dose. Return to your normal schedule. Do not take 2 doses at one time. Drug interactions can change how medicines work or increase risk for side effects. Tell your healthcare providers about all medicines taken. Include prescription and [id number] medicines, vitamins, and herbal medicines. Speak with your doctor or pharmacist before starting or stopping any medicine. If you need to stop this medicine, your doctor may wish to gradually reduce the dosage before stopping. Keep all appointments for medical exams and tests while on this medicine. ?? Cautions Tell your doctor and pharmacist if you ever had an allergic reaction to a medicine. This medicine may cause you to experience some withdrawal symptoms from your pain medication. Tell your doctor right away if you have unusual sweating, chills, stomach pain, diarrhea, yawning or irritability. Some patients taking this medicine have experienced serious side effects. Please speak with your doctor to understand the risks and benefits associated with this medicine. This medicine is associated with a rare, but serious problem of the liver. Speak to your doctor about the early signs of liver problems and the benefits and risks of using this medicine. Do not use the medication any more than instructed. This medicine may cause dizziness or fainting, especially after exercising or in hot weather. Be very careful when standing or sitting up quickly. If possible, avoid using with alcohol, marijuana, or other medicines that can cause dizziness or drowsiness. These include allergy/cold products, muscle relaxers, sleep aids, and pain relievers. Your ability to stay alert or to react quickly may be impaired by this medicine. Do not drive or operate machinery until you know how this medicine will affect you. Call the doctor if there are any signs of confusion or unusual changes in behavior. Tell the doctor or pharmacist if you are , planning to be , or . Contact your doctor immediately if you experience any swelling of your hands, face, lips, eyes, throat or tongue. Always carry an ID card or wear a medical alert bracelet indicating your medical condition. Do not share this medicine with anyone who has not been prescribed this medicine. Always refill this medicine before it runs out. ?? Side Effects The following is a list of some common side effects from this medicine. Please speak with your doctor about what you should do if you experience these or other side effects. ??? agitated feeling or trouble sleeping ??? dizziness ??? lack of energy and tiredness ??? headaches ??? nausea ??? restlessness Call your doctor or get medical help right away if you notice any of these more serious side effects: ??? abdominal cramps ??? severe or persistent abdominal pain ??? decreased awareness or responsiveness ??? bone pain ??? confusion ??? diarrhea ??? hallucinations (unusual thoughts, seeing or hearingthings that are not real) ??? pain in the joints ??? signs of liver damage (such as yellowing of eye or skin, dark urine, or unusual tiredness) ??? muscle aches, spasms or abnormal movements ??? nervousness ??? runny nose ??? shortness of breath ??? severe or persistent vomiting A few people may have an allergic reaction to this medicine. Symptoms can include difficulty breathing, skin rash, itching, swelling, or severe dizziness. If you notice any of these symptoms, seek medical help quickly. ?? Extra Please speak with your doctor, nurse, or pharmacist if you have any questions about this medicine. ?? [email or web address] IMPORTANT NOTE: This document tells you briefly how to take your medicine, but it does not tell youall there is to know about it. Your doctor or pharmacist may give you other documents about your medicine. Please talk to them if you have any questions. Always follow their advice. There is a more complete description of this medicine available in [place]. Scan this code on your smartphone or tablet or use the web address below. You can also ask your pharmacist for a printout. If you have any questions, please ask your pharmacist. The display and use of this drug information is subject to Terms of Use. Copyright(c) 2022 [employer]. ?? [employer]. All rights reserved. This information is not intended as a substitute for professional medical care. Always follow your healthcare professional's instructions. ?? * Kevin WARD, Wilber Ventura: PERFORM Event Display: Patient Education Leaflets Authored Date: Bacterial Conjunctivitis ?? [id number] Bacterial Conjunctivitis You have an infection in the membrane covering the white part of??the eye. This part of the eye is called the conjunctiva. The infection is called conjunctivitis. The most common symptoms of conjunctivitis are a thick, puslike discharge from the eye, swollen eyelids, redness, eyelids sticking together upon awakening, and a gritty or scratchy feeling in the eye. Your infection was caused by bacteria. It may be treated with medicine. With treatment, the infection takes about 7 to 10 days to resolve. Home care ??? Use prescribed antibiotic eye drops or ointment as directed to treat the infection. ??? Apply a warm compress (towel soaked in warm water) to the affected eye 3 to 4 times a day. Do this just before applying medicine to the eye. ??? Use a warm, wet cloth to wipe away crusting of the eyelids in the morning. You can also use an zfyi-jbg-kegopsj eyelid-specific wipe. This crusting is caused by mucus drainage during the night. You may also use saline irrigating solution or artificial tears to rinse away mucus in the eye. Don't put a patch over the eye. ??? Wash your hands before andafter touching the infected eye. This is to prevent spreading the infection to the other eye and to other people. Don't share your towels or washcloths with others. ??? You may use acetaminophen or ibuprofen to control pain, unless another medicine was prescribed. Talk with your healthcare providerbefore using these medicines if you have chronic liver or kidney disease. Also talk with your provider if you have ever had a stomach ulcer or digestive bleeding. ??? Don't wear contact lenses until your eyes have healed and all symptoms are gone. ?? Follow-up care Follow up with your healthcare provider, or as advised. ?? When to seek medical advice Call your healthcare provider right away if any of these occur: ??? Worsening vision ??? Increasingpain in the eye ??? Increasing swelling or redness of the eyelid ??? Redness spreading around the eye ?? Last Reviewed Date: 2022 ?? [employer]. All rights reserved. This information is not intended as a substitute for professional medical care. Always follow your healthcare professional's instructions. This information has been modified by your health care provider with permission from the publisher. ?? * Kevin WARD, Wilber Ventura: PERFORM Event Display: Patient Education Leaflets Authored Date: [id number] Moxifloxacin Ophthalmic Solution ?? [id number] Moxifloxacin Ophthalmic Solution Brands: Moxeza, Vigamox Uses For eye infection. ?? Instructions If you use contact lenses, do not wear them on the days when using these drops. Keep the medicine at room temperature. Avoid heat and direct light. Check the medicine before each use. If the liquid medicine has any particles in it, appears discolored, or if the vial appears damaged, do not use it. Wash your hands before and after handling this medicine. Do not let the tip of the container touch your eye. Do not touch the tip with your hands or let it touch other surfaces. This can cause a serious eye infection. If you forget to take a dose on time, take it as soon as you remember. If it is almost time for thenext dose, do not take the missed dose. Return to your normal schedule. Do not take 2 doses at one time. Tell your doctor and pharmacist about all your medicines. Include prescription and fhux-ghz-csbbawhheeyjnpym, vitamins, and herbal medicines. If you are using another eye medicine, wait at least 5 minutes before using the other medicine. If using eye drops and eye ointments, always use the drops at least 5 minutes before the ointment. The drops will not be able to get into the eye properly if used at the same time or after the ointment. Use this medicine at the same time each day. Discard any remaining medicine. Do not use any other eye medicine without your doctor's knowledge. Do not take the medicine more than three times during 24 hours. ?? Cautions Keep using this medicine for the full number of days that it is prescribed. Do not stop the medicine even if you start to feel better. Tell your doctor about all your medical conditions before starting this medicine, especially other eye conditions. Tell your doctor and pharmacist if you ever had an allergic reaction to a medicine. Do not use the medication any more than instructed. This medicine may cause blurry vision. Your ability to stay alert or to react quickly may be impaired by this medicine. Do not drive or operate machinery until you know how this medicine will affect you. Tell the doctor or pharmacist if you are , planning to be , or . Contact your doctor if your symptoms do not begin to improve after 3 days on this medicine. Do not share this medicine with anyone who has not been prescribed this medicine. Some people have experienced serious eye infections or other eye problems while using this medicine. Contact your doctor right away if you experience eye pain, redness, severe headache, or any changes to your vision. While you are on this medicine, it is very important to follow your doctor's instructions for any medical appointments or tests. ?? Side Effects The following is a list of some common side effects from this medicine. Please speak with your doctor about what you should do if you experience these or other side effects. ??? blurry vision ??? burning or stinging ??? discomfort in the eyes ??? dry eyes ??? irritation ofthe eyes ??? itching, redness or dryness of eyes ??? redness of eyes ??? changes in taste or unpleasant taste ??? blurring or changes of vision ??? watering of the eyes Call your doctor or get medical help right away if you notice any of these more serious side effects: ??? swelling of the face, mouth, tongue or throat ??? itching and swelling of eyelids ??? eye pain or swelling A few people may have an allergic reaction to this medicine. Symptoms can include difficulty breathing, skin rash, itching, swelling, or severe dizziness. If you notice any of these symptoms, seek medical help quickly. ?? Extra Please speak with your doctor, nurse, or pharmacist if you have any questions about this medicine. ?? [email or web address]-[email or web address] IMPORTANT NOTE: This document tells you briefly how to take your medicine, but it does not tell youall there is to know about it. Your doctor or pharmacist may give you other documents about your medicine. Please talk to them if you have any questions. Always follow their advice. There is a more complete description of this medicine available in [place]. Scan this code on your smartphone or tablet or use the web address below. You can also ask your pharmacist for a printout. If you have any questions, please ask your pharmacist. The display and use of this drug information is subject to Terms of Use. Copyright(c) 2022 [employer]. ?? [employer]. All rights reserved. This information is not intended as a substitute for professional medical care. Always follow your healthcare professional's instructions. ?? Patient Care team information Care Team Personnel Name: Radha Vasquez RN Position: [facility] RN Supv Member Role: Primary Care Nurse Name: Debbie Braun RN Position: [facility] SN RN Member Role: Primary Care Nurse Name: Cris Fonseca RN Position: [facility] RN Member Role: Primary Care Nurse Name: Mike Franks MD Position: [facility] Outreach Member Role: PCP Address: Address: [address] [place] [address] Mike Adkins [place] [address], [place] [address] Name: Liliam Zhang RN Position: [facility] RN Member Role: Primary Care Nurse Name: Lexi Rodriguez RN Position: [facility] RN Member Role: Primary Care Nurse Name: Jake RN, Christy Position: [facility] RN Member Role: Primary Care Nurse Name: Yanely Hollis RN Position: [facility] RN Member Role: Primary Care Nurse Name: Hiwot Yepez RN Position: [facility] RN Member Role: Primary Care Nurse Name: Jeri Simmons RN Position: [facility] RN Member Role: Primary Care Nurse Name: Kailey Valerio Position: [facility] RN Member Role: Primary Care Nurse Name: Gladys Ramirez MD Position: [facility] Physician - Endocrinology Member Role: [employer]etime Consulting Physician Name: Lorena Pascual RN Position: [facility] RN Member Role: Primary Care Nurse Name: Sharon Agosto LPN Position: [facility] RN Member Role: Primary Care Nurse Name: Elvi Olsen RN Position: [facility] RN Member Role: Primary Care Nurse Name: Keely Alcazar RN Position: [facility] RN Member Role: Primary Care Nurse Name: Jozef Saldana RN Position: [facility] RN Member Role: Primary Care Nurse Name: Norah Valdovinos RN Position: [facility] RN Supv Member Role: Primary Care Nurse Name: Liane Lee RN Position: [facility] RN Member Role: Primary Care Nurse Name: Nevin Rosenberg RN Position: [facility] RN Member Role: Primary Care Nurse Name: Joann Drummond RN Position: [facility] RN Member Role: Primary Care Nurse Name: Suzette Goodrich RN Position: [facility] RN Member Role: Primary Care Nurse Name: Saskia Roach RN Position: [facility] RN Member Role: Primary Care Nurse Name: Carla Hdz RN Position: [facility] Mixer Tender Member Role: Primary Care Nurse Name: Kelsey Murphy RN Position: [facility] RN Member Role: Primary Care Nurse Name: Joseph Murdock RN Position: [facility] RN Member Role: Primary Care Nurse Name: Lien Mckeon RN Position: [facility] RN Member Role: Primary Care Nurse Name: Rocío FOSTER Attending Position: [facility] ED Medicine MD Name: Faustino Morgan Position: [facility] ED TA [facility] Name: Heather Duffy RN Position: [facility] ED RN W/OE and Tasks Member Role: Patient Care Provider Care Team Related Persons Name: NITO FIDEL Address: home [address] [place] [id number] Name: UNKNOWNNAYELI
--- OUTSIDE RECORDS SUMMARY | 2023-08-02 17:24 | XMS_ITS | Continuity of Care Document ---
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 Refills 0, Maintenance, 01/28/21 13:19:00 EST, Route to Pharmacy Electronically, [facility], Partial fill upon patient request if the prescription is for a schedule II opioid... Start Date: 01/28/21 Status: Ordered hydrOXYzine hydrochloride 25 mg oral tablet 1 tablet = 25 mg, By Mouth, 2 times a day, PRN ANXIETY, Maintenance, 07/28/21 11:54:00 EDT, ; Start Date: 07/28/21 Status: Ordered multivitamin Vitamin B Complex oral tablet 1 tablet, By Mouth, Daily, # 30 tablet, 0 Refills, Maintenance, 01/28/21 13:19:00 EST, Tablet, [facility], Partial fill upon patient request if the prescription is for a schedule II opioid drug., 1 tablet By Mouth Daily,x30 days, 163, cm... Start Date: 01/28/21 Stop Date: 02/27/21 Status: Ordered traZODone 100 mg oral tablet 100 mg, 1, tablet, By Mouth, Daily at bedtime, Maintenance, 07/28/21 11:54:00 EDT, ; Start Date: 07/28/21 Status: Ordered venlafaxine 150 mg oral capsule, extended release 1 capsule = 150 mg, By Mouth, Daily, Maintenance, 07/28/21 11:54:00 EDT, ER Capsule, ; Start Date: 07/28/21 Status: Ordered Problem List Condition Effective Dates Status Health Status Inform ant anxiety(Confirmed) Active Results Radiology Reports * Exam Date Time Procedure Performing Provider Status 07/27/21 9:35 AM Chest Portable Naveen , Meaghan; Auth (Ve rified) Notes: (Chest Portable) Reason For Exam: Shortness of Breath RESULT: Chest Portable Chest Portable Reason: Shortness of Breath; Clinical Question(s): CHF COMPARISON: None. FINDINGS: LINES AND TUBES: None. LUNGS AND PLEURA: Clear lungs. Normal pulmonary vascularity. No pleural effusion. No pneumothorax. HEART, MEDIASTINUM AND CAMILA: Heart is normal in size. Normal upper mediastinal and hilar contour. BONES AND SOFT TISSUES: No acute abnormality. IMPRESSION: No acute cardiopulmonary process. I have personally reviewed the images and I agree with this report. WSN: [id number] Ordering Physician: Leila Ann Dictated By: Kary Hdz MD Dictated Date/Time: 07/27/21 10:08 a Reviewed By: Abdi Jameson MD Signed By: Abdi Jameson MD Signed Date/Time: 07/27/21 10:13 am Transcribed By: JAMES Transcribed Date/Time: 07/27/21 9:38 am Vital Signs Most recent to oldest [Reference Range]: 1 2 3 Height 159 cm (07/29/21 11:23 AM) 159 cm (07/29/21 5:29 AM) 159 cm (07/29/21 12:03 AM) Weight 69.5 kg (07/28/21 5:43 PM) Oxygen Saturation [94-100 %] 100 % (07/29/21 11:23 AM) 100 % (07/29/21 5:29 AM) 100 % (07/29/21 12:03 AM) Pulse Rate [55-90 bpm] 84 bpm (07/29/21 11:23 AM) 67 bpm (07/29/21 5:29 AM) 72 bpm (07/29/21 12:03 AM) Body Mass Index [18.5-24.99] 27.49 *H* (07/28/21 5:43 PM) Blood Pressure [90-138/55-84 mm Hg] 134/98mm Hg (07/29/21 11:23 AM) 146/104mm Hg *H* (07/29/21 5:29 AM) 143/102mm Hg *H* (07/29/21 12:03 AM) Respiratory Rate [16-30 br/min] 18 br/min (07/29/21 11:23 AM) 18 br/min (07/29/21:29 AM) 18 br/min (07/29/21 12:03 AM) Temperature [96.8-100.4 DegF] 97.6 DegF (07/29/21 11:23 AM) 98.1 DegF (07/29/21:29 AM) 97.8 DegF (07/29/21 12:03 AM) Mode of Delivery (Oxygen) Room air (07/29/21 11:23 AM) Room air (07/29/21:29 AM) Room air (07/29/21 12:03 AM) Blood pressure sites Arm, left (07/29/21 11:23 AM) Arm, right (07/29/21:29 AM) Arm, right (07/29/21 12:03 AM) Temperature Route Oral (07/29/21 11:23 AM) Oral (07/29/21 5:29 AM) Oral (07/29/21 12:03 AM) Dry Weight 69.5 kg (07/28/21 5:43 PM)
--- OUTSIDE RECORDS SUMMARY | 2023-08-02 17:24 | XMS_ITS | Continuity of Care Document ---
Author Name Unknown Organization [facility] ter Address [address] [place] [address]- Care Team Providers Care Bottom Pounder [employer] Name Role Phone Mike Franks MD Primary Care Physician Encounter [facility] [id number] Date(s): 04/05/21 - 04/05/[address] [address]- Discharge Disposition: A-D/C Walkout Attending Physician: Not [...] 01/28/21 13:19:00 EST, Route to Pharmacy Electronically, [facility], Partial fill upon patient request if the prescription is for a schedule II opioid... Start Date: 01/28/21 Status: Ordered multivitamin Vitamin B Complex oral tablet 1 tablet, By Mouth, Daily, # 30 tablet, 0 Refills, Maintenance, 01/28/21 13:19:00 EST, Tablet, [facility], Partial fill upon patient [...] Refills, Maintenance, 02/26/21 4:06:00 EDT, Tablet, [id number], Partial fill upon patient request if the prescription is for a schedule II opioid drug.... Start Date: 02/26/21 Status: Ordered Problem List Condition Effective Dates Status Health Status Inform ant anxiety(Confirmed) Active Vital Signs Most recent to oldest [Reference Range]: 1 Oxygen Saturation [94-100 %] 97 % (04/05/21 9:39 PM) Pulse Rate [55-90 bpm] 106 bpm *H* (04/05/21 9:39 PM) Blood Pressure [90-138/55-84 mm Hg] 138/ 85mm Hg (04/05/21 9:39 PM) Respiratory Rate [16-30 br/min] 18 br/mi n (04/05/21 9:39 PM) Temperature [96.8-100.4 DegF] 98.5 DegF (04/05/21 9:39 PM) Mode of Delivery (Oxygen) Room air (04/05/21 9:39 PM) Blood pressure sites Arm, left (04/05/21 9:39 PM) Temperature Route Oral (04/05/21 9:39 PM)
--- OUTSIDE RECORDS SUMMARY | 2023-08-02 17:24 | XMS_ITS | Continuity of Care Document ---
Author Name Unknown Organization [facility] ter Address [address] [place] [id number]- Care Team Providers Care Nuclear Plant Operator Name Role Phone Mike Franks MD Primary Care Physician [phone] [id number] Date(s): 06/23/23 - 06/23/[address] [address]- Discharge Disposition: A-D/C AMA Attending Physician: Nevin Wagoner MD Admitting Physician: Conrad Moody MD Referring Physician: Not on Staff, Referring MD Allergies, Adverse Reactions, Alerts No Known Allergies Medications escitalopram 5 mg oral tablet TAKE 1 TABLET BY MOUTH EVERY DAY IN THE MORNING Start Date: 06/24/23 Status: Ordered hydrOXYzine pamoate 50 mg oral capsule 1 capsule = 50 mg, By Mouth, 2 times a day, PRN Anxiety, # 60 capsule, 0 Refills, Maintenance, 04/05/23 8:19:00 EDT, Capsule, [id number], Partial fill upon patient request if the prescriptionis for a schedule II opioid drug., 160, cm, ... Start Date: 04/05/23 Status: Ordered Multivitamin Tablet [...] Active Severe recurrent major depression Confirmed Active Results Radiology Reports * Exam Date Time Procedure Performing Provider Status 06/23/23 6:[address] Head/Brain W/O Contrast Cam Abrams; Auth (Verified) Notes: (CT Head/Brain W/O Contrast) Reason For Exam: Trauma RESULT: CT Head/Brain W/O Contrast CT Head/Brain W/O Contrast Reason: Trauma. Clinical Question(s): Hematoma. TECHNIQUE: Noncontrast head CT using axial technique and reconstructed in axial and coronal planes.Weight-based protocol using automatic tube modulation was used to optimize exposure parameters. CTDIvol Head: 46.60 mGy, DLP Head: 772 mGy*cm. COMPARISON: 06/09/2023, 01/20/2023. FINDINGS: BRAIN and EXTRA-AXIAL SPACES: No parenchymal hemorrhage, midline shift or mass effect. Ugarte-white matter differentiation is well preserved. No acute infarct. Ventricles, sulci and basilar cisterns are normal. No white matter lesions. No subarachnoid hemorrhage, subdural or epidural collections. CALVARIUM, SKULL BASE AND SOFT TISSUES: No fractures or suspicious bony lesions. The paranasal sinuses and mastoid air cells are clear. Visualized orbits and globes are intact. The extracranial soft tissues are unremarkable. IMPRESSION: No acute intracranial abnormality. Preliminary results were transferred to [facility] by Dr. Wren at 7:27 AM on 06/23/2023. I have personally reviewed the images and I agree with this report. WSN: [id number] Ordering Physician: Leila Ann Dictated By: Ken Wren MD Dictated Date/Time: 06/23/23 7:31 am Reviewed By: Ganesh No MD Signed By: Ganesh No MD Signed Date/Time: 06/23/23 7:36 am Transcribed By: JAMES Transcribed Date/Time: 06/23/23 7:27 am Vital Signs Most recent to oldest [Reference Range]: 1 2 3 Oxygen Saturation [94-100 %] 98 % (06/23/23 10:37 AM) 99 % (06/23/23 8:45 AM) 98 % (06/23/23 5:38 AM) Pulse Rate [55-90 bpm] 75 bpm (06/23/23 10:37 AM) 86 bpm (06/23/23 8:45 AM) 87 bpm (06/23/23 5:38 AM) Blood Pressure [90-138/55-84 mm Hg] 96/64mm Hg (06/23/23 10:37 AM) 103/83mm Hg (06/23/23 8:45 AM) 106/69mm Hg (06/23/23 5:38 AM) Respiratory Rate [16-30 br/min] 15 br/min *L* (06/23/23 10:37 AM) 14 br/min *L* (06/23/23 8:45 AM) 17 br/min (06/23/23 5:38 AM) Temperature [96.8-100.4 DegF] 98.0 DegF (06/23/23 1:28 AM) 98.4 DegF (06/22/23 11:41 PM) Mode of Delivery (Oxygen) Room air (06/23/23 10:37 AM) Room air (06/23/23 8:45 AM) Room air (06/23/23 5:38 AM) Blood pressure sites Arm, left (06/23/23 5:38 AM) Arm, left (06/23/23 4:00 AM) Arm, left (06/23/23 3:48 AM) Temperature Route Oral (06/23/23 1:28 AM) Oral (06/22/23 11:41 PM) Social History Social History Type Response Smoking Status Never (less than 100 in lifetime) entered on: 01/25/23 Sex Admission evaluation note * Heidy WARD, Conrad Wagoner: PERFORM, MODIFY Event Display: Admission Note Authored Date: [id number] Patient: ??ALLYSSA TIMMONS ? Age:??32 Years?Sex:??Female?:??1990?? Chief Complaint/Reason for Consultation cc etoh wd, from home, daily drinker, reports last drink around 0800 1/2 pint vodka, reports witnessed seizures by mom's bf, so 911 was called History of Present Illness Ms. Timmons is a 33-year-old lady with a PMH of depression, prior suicide attempts w/ APTU hospitalizations, alcohol use disorder, previous alcohol withdrawal delirium and seizures with frequent hospitalizations, anxiety, PCOS and GERD presents to the ER due to concern for alcohol withdrawal. ?? She has been attempting to cut down on drinking. While attempting to cut down she started feeling like she was about to have seizures, tried drinking a bottle of vodka in the morning and sleeping offthe withdrawal, however she had a seizure that caused her to fall out of bed and hit her head henceshe called the ambulance.??Her last drink was 8 am 06/22.??Patient is a heavy drinker and usually drinks throughout the day. Denies recreational drug use.?? Currently denies chest pain, fever, cough, shortness of breath, abdominal pain, nausea/vomiting/diarrhea/constipation/dysuria. 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 She has previously had an intentional overdose on meds requiring intubation for airway protection.? On arrival to the ER vitals were afebrile, HR 110, BP 140/80, 97% on room air.?? Labs showed unremarkable CBC, unremarkable BMP, ALP 107, AST 42, ALT 25, T. bili 0.2, TSH 3.3, ethanol 390, salicylate level less than 0.3, Tylenol level less than 5, COVID-negative.?? Initial CIWA on arrival was 18, most recently 7.?? She received phenobarbital and 1 L LR. States the medications are working. Review of Systems All systems reviewed and negative except as indicated in HPI. Objective Vital Signs?? Temperature: 98 DegF (06/23/23 01:28:00) Temperature Route: Oral (06/23/23 01:28:00) Pulse Rate:??106 bpm??High (06/23/23 04:00:00) Respiratory Rate: 19 br/min (06/23/23 04:00:00) Systolic Blood Pressure: 113 mm Hg (06/23/23 04:00:00) Diastolic Blood Pressure: 78 mm Hg (06/23/23 04:00:00) Blood pressure sites: Arm, left (06/23/23 04:00:00) Mean Arterial Pressure: 100 mm Hg (06/23/23 01:28:00) Pulse Pressure: 35 mm Hg (06/23/23 04:00:00) Oxygen Saturation: 98 % (06/23/23 04:00:00) Mode of Delivery (Oxygen): Room air (06/23/23 04:00:00) ? Intake/Output? No Data Available ? Physical Exam Constitutional: Alert, in no acute distress. Head EENT: Extraocular muscle movement intact.??Moist mucous membranes.?? Neck: Supple. No JVD. Respiratory: Clear to auscultation. No wheezing or crackles. No use of accessory muscles. Cardiovascular: S1S2 regular. No murmurs, rubs or gallops. Gastrointestinal: Abdomen soft, non-tender, non-distended. Normal bowel sounds. Genitourinary: No CVA tenderness. Extremities: No lower extremity pitting??edema. No cyanosis or clubbing. Neurologic: AAOx3, Speech normal. No focal neurological deficits. Skin: No rash. Psychiatric: Normal mood and affect Assessment/Plan 33-year-old lady with a PMH of depression, prior suicide attempts w/ APTU hospitalizations, alcoholuse disorder, previous alcohol withdrawal delirium and seizures with frequent hospitalizations, anxiety, PCOS and GERD presents to the ER due to concern for alcohol withdrawal. ?? Alcohol use disorder, severe, dependence (F10.20):? Alcohol withdrawal seizure (F10.239):? Last drink / Signs/symptoms: withdrawal seizure - [facility] protocol ordered - ativan PRN - IV thiamine, multivitamin, folate - seizure precautions -??counseled on alcohol cessation,??detox options, does not want??to discuss with addiction medicine ?? anxiety (F32.9):? - continue hydroxyzine PRN ?? Code status: full DVT ppx:??lovenox Diet: regular Dispo: floors ?? Total Visit Time: I personally spent a total of 80 minutes, including both pnys-ya-kxhf and nfp-gqan-kg-face time on the date of the encounter, addressing the above diagnoses. Activities performed in this time include chart review, obtaining / reviewing history, performing amedically necessary evaluation, documentation and counseling. ?? Conrad Moody MD Public Works Supervisor 7p-7a After 7 am please contact day time provider for questions/consult updates. ?? Histories Past Medical History/Problem List Active Problems??(5) Alcohol use disorder, severe, dependence anxiety GERD without esophagitis PCOS (polycystic ovarian syndrome) Severe recurrent major depression ? Past Surgical History No surgery history documented. ? Social History Alcohol Details:??Use: Current. ??Frequency: Daily. Substance Abuse Details:??Use: pt refuses to discuss. Tobacco Details:??Use: Never (less than 100 in lifetime). ? Family History No family history recorded. ? Medications Home Medications HydrOXYzine (hydrOXYzine pamoate 50 mg oral capsule)?1?capsule?50?Milligram?By Mouth?2 times a day?as needed?Anxiety Multivitamin (Multivitamin Tablet)?1?tab(s)?By Mouth?Daily Trazodone (traZODone 100 mg oral tablet)?100?Milligram?1?tablet?By Mouth?Daily atbedtime?as needed?Sleep ? Inpatient Medications Medications (16) Active SCHEDULED: (11) Clonidine 0.1 mg Tablet (ClonIDINE Tablet) ??0.1 mg, By Mouth, Every 6 hours Clonidine 0.1 mg Tablet (ClonIDINE Tablet) ??0.1 mg, By Mouth, Every 8 hours Clonidine 0.1 mg Tablet (ClonIDINE Tablet) ??0.1 mg, By Mouth, Every 12 hours Clonidine 0.1 mg Tablet (ClonIDINE Tablet) ??0.05 mg, By Mouth, Every 12 hours Enoxaparin 40 mg Inj (Enoxaparin Inj) ??40 mg 0.4 mL, Subcutaneous Injection, Daily Folic Acid 1 mg Tablet (Folic Acid Tablet) ??1 mg, By Mouth, Daily Multivitamin Tablet ??1 tablet, By Mouth, Daily Multivitamin Tablet ??1 tablet, By Mouth, Daily NaCl 0.9% Flush 3ml (NaCL 0.9% Flush) ??3 mL, IV Push, Every 8 hours Pyridoxine 50 mg Tablet (Pyridoxine Tablet) ??50 mg, By Mouth, Daily Thiamine 100 mg Inj (Thiamine Inj) ??100 mg 1 mL, IV Push Slowly, Daily CONTINUOUS: (0) PRN: (5) HydrOXYzine Pamoate 25mg Capsule (hydrOXYzine pamoate 25 mg oral capsule) ??50 mg, By Mouth, 2 times a day Melatonin 3 mg Tablet (Melatonin Tablet) ??3 mg, By Mouth, Daily at bedtime NaCl 0.9% Flush 3ml (NaCL 0.9% Flush) ??3 mL, IV Push, Every 8 hours Phenobarbital 130 mg/mL Inj (Phenobarbital Inj) ??260 mg 2 mL, IV Push, Once Phenobarbital 65 mg/mL Inj (Phenobarbital Inj) ??65 mg 1 mL, IV Push, Every 2 hours ? Results Recent Labs BLOOD COUNT & DIFF WBC 9.1 k/mm3 ()?? 06/22/2023 23:58 RBC 5.22 m/mm3 ()?? 06/22/2023 23:58 Hgb 13.7 Gm/dL ()?? 06/22/2023 23:58 Hct 41.5 % ()?? 06/22/2023 23:58 MCV 79.5 femtoliters (Low)?? 06/22/2023 23:58 MCH 26.2 pg (Low)?? 06/22/2023 23:58 MCHC 33.0 g/dL ()?? 06/22/2023 23:58 Platelet Count 353 k/mm3 ()?? 06/22/2023 23:58 RDW-SD 49.1 femtoliters (High)?? 06/22/2023 23:58 MPV 9.2 femtoliters (Low)?? 06/22/2023 23:58 Nucleated RBC (Automated) 0.0 #/100 WBC'S ()?? 06/22/2023 23:58 Abs. NRBC 0.0 k/mm3 ()?? 06/22/2023 23:58 Abs. Neut 5.6 k/mm3 ()?? 06/22/2023 23:58 Abs. Lymph 2.9 k/mm3 ()?? 06/22/2023 23:58 Abs. Trinity 0.5 k/mm3 ()?? 06/22/2023 23:58 Abs. Eo 0.0 k/mm3 ()?? 06/22/2023 23:58 Abs. Baso 0.1 k/mm3 ()?? 06/22/2023 23:58 Neut % 61.5 % ()?? 06/22/2023 23:58 Lymph % 31.5 % ()?? 06/22/2023 23:58 Trinity % 5.7 % ()?? 06/22/2023 23:58 Eos % 0.2 % ()?? 06/22/2023 23:58 Baso % 0.8 % ()?? 06/22/2023 23:58 Imm Gran 0.3 % ()?? 06/22/2023 23:58 Abs. Imm Gran 0.0 k/mm3 ()?? 06/22/2023 23:58 ?? CHEM GENERAL Sodium 143 mmol/L ()?? 06/22/2023 23:58 Potassium 4.6 mmol/L ()?? 06/22/2023 23:58 Chloride 103 mmol/L ()?? 06/22/2023 23:58 Bicarbonate Level 23 mmol/L ()?? 06/22/2023 23:58 Anion Gap 17 ()?? 06/22/2023 23:58 Glucose Level 76 mg/dL ()?? 06/22/2023 23:58 BUN 8 mg/dL ()?? 06/22/2023 23:58 Creatinine-Blood 0.7 mg/dL ()?? 06/22/2023 23:58 Estimated GFR Creatinine 112 ML/MIN/1.73 M2 ()?? 06/22/2023 23:58 Calcium 8.7 mg/dL ()?? 06/22/2023 23:58 Protein, Total 7.9 Gm/dL ()?? 06/22/2023 23:58 Albumin 4.8 Gm/dL ()?? 06/22/2023 23:58 AG Ratio 1.5 ()?? 06/22/2023 23:58 Alkaline Phosphatase 107 units/L (High)?? 06/22/2023 23:58 AST (SGOT) 42 units/L (High)?? 06/22/2023 23:58 ALT (SGPT) 25 units/L ()?? 06/22/2023 23:58 Bilirubin, Total 0.2 mg/dL ()?? 06/22/2023 23:58 ?? ENDOCRINE/TUMOR MARKER TSH 3.30 uIU/mL ()?? 06/22/2023 23:58 Serum Qual NEGATIVE mIU/mL ()?? 06/22/2023 23:58 ?? HEME OTHER Hold Blue Top SPECIMEN DISCARDED AFTER 4 HOURS. ()?? 06/22/2023 23:58 ?? MISC. CHEMISTRY Hold Ugarte Top SPECIMEN DISCARDED AFTER 1 WEEK ()?? 06/22/2023 23:58 ?? TOXICOLOGY/TDM Ethanol, Serum or Plasma 390 mg/dL (Abnormal)?? 06/22/2023 23:58 Salicylate Level <0.3 mg/dL (Low)?? 06/22/2023 23:58 Acetaminophen Level <5 mg/L (Low)?? 06/22/2023 23:58 ?? VIROLOGY COVID-19 by RT-PCR NEGATIVE ()?? 06/22/2023 23:59 ? Blood Glucose Trend Glucose Level: 76 mg/dL (06/22/23 23:58:00) ? CBC, CBC w/Diff?? CBC?? Differential?? WBC: 9.1 k/mm3 (23:58) Abs. Neut: 5.6 k/mm3 (23:58) RBC: 5.22 m/mm3 (23:58) Abs. Lymph: 2.9 k/mm3 (23:58) Hct: 41.5 % (23:58) Abs. Trinity: 0.5 k/mm3 (23:58) RDW-SD:??49.1 femtoliters??High (23:58) Abs. Eo: 0 k/mm3 (23:58) Nucleated RBC (Automated): 0 #/100 WBC'S (23:58) Abs. Baso: 0.1 k/mm3 (23:58) Abs. NRBC: 0 k/mm3 (23:58) Neut %: 61.5 % (23:58) ?? Lymph %: 31.5 % (23:58) ?? Trinity %: 5.7 % (23:58) ?? Eos %: 0.2 % (23:58) ?? Baso %: 0.8 % (23:58) ?? Imm Gran: 0.3 % (23:58) ?? Abs. Imm Gran: 0 k/mm3 (23:58) ? LFT Albumin: 4.8 Gm/dL (23:58) Alkaline Phosphatase:??107 units/L??High (23:58) ALT (SGPT): 25 units/L (23:58) AST (SGOT):??42 units/L??High (23:58) Bilirubin, Total: 0.2 mg/dL (23:58) ?? Urinalysis?? No qualifying data available. ?? Microbiology ?? COVID-19 (Novel Coronavirus), Rapid PCR?? Completed?? Source: Nasal Body Site: Nose Collected Dt/Tm: 06/22/2023 23:36 Last Updated Dt/Tm: 06/23/2023 01:03 ? Blood Gases?? No qualifying data available. ?? Note * Nevin Wagoner MD: PERFORM Event Display: Discharge/Transfer Note Hospital Authored Date: [id number] Patient: ??TIMMONS, ALLYSSA ? Age:??32 Years?Sex:??Female?:??1990?? Patient Information [facility]charge [facility] Primary Care Physician: Mike Franks MD Admit Date/Time: 06/23/23 04:28 Discharge Disposition Discharge Disposition: ?? Discharge Diagnosis Alcohol use disorder, severe, dependence (F10.20) Alcohol withdrawal seizure (F10.239) ? Allergies Allergies ?(Active and Proposed Allergies Only) No Known Medication Allergies? (Severity: Unknown severity, Onset: Unknown) NKA? (Severity: Unknown severity, Onset: Unknown) ? Objective Assessment and Plan Ms. Timmons is a 33-year-old lady with a PMH of depression, prior suicide attempts w/ APTU hospitalizations, alcohol use disorder, previous alcohol withdrawal delirium and seizures with frequent hospitalizations, anxiety, PCOS and GERD presents to the ER due to concern for alcohol withdrawal. Managed for alcohol withdrawal, this morning when I saw her she was having withdrawal symptoms was very tremulous, received phenobarbital this am . ??Discussed at length about addiction consult, social work consult, patient declined she mentioned she is already established with??outpatient provider??and does not want to see inpatient addiction team on social welfare administrator.?? Later this??afternoon I was informed by the nurse that patient is feeling better and wants to leave.?? She was again seen at bedside, had withdrawal symptoms has improved,??she patient was requesting to be discharged.?? To her withdrawal symptoms currently is better but she is still??in the. ??Of having severe withdrawal symptoms??it was explained to the patient repeatedly and I also explained to her that since she is withdrawing??and is still at risk of having worsening withdrawal symptoms I cannot??safely discharge her home.?? Patient decided to leave AGAINST MEDICAL ADVICE. ??She was awake alert oriented and had??a complete understanding of consequences of??leaving AGAINST MEDICAL ADVICE. Her??right eye was red, no active discharge, patient was wearing contact lenses she was advised to take off her contact lens as soon as possible. ?? . Physical Exam . _ minutes spent on discharge Patient Care team information Care Team Personnel Name: Radha Vasquez RN Position: [facility] RN Supv Member Role: Primary Care Nurse Name: Debbie Braun RN Position: [facility] RN Member Role: Primary Care Nurse Name: Mike Franks MD Position: [facility] Outreach Member Role: PCP Address: Address: [address] [place] [address] [place] [address]- Name: Liliam Zhang RN Position: [facility] RN Member Role: Primary Care Nurse Name: Lexi Rodriguez RN Position: [facility] RN Member Role: Primary Care Nurse Name: Jake MUÑIZ, February Position: [facility] RN Member Role: Primary Care Nurse Name: Yanely Hollis RN Position: [facility] RN Member Role: Primary Care Nurse Name: Hiwot Yepez RN Position: [facility] RN Member Role: Primary Care Nurse Name: Jeri Simmons RN Position: [facility] RN Member Role: Primary Care Nurse Name: Kailey Valerio Position: [facility] RN Member Role: Primary Care Nurse Name: Gladys Ramirez MD Position: [facility] Physician - Endocrinology Member Role: Lifetime Consulting Physician Name: Lorena Pascual RN Position: [facility] RN Member Role: Primary Care Nurse Name: Surendra TRUJILLO, Sole Position: [facility] RN Member Role: Primary Care Nurse Name: Elvi Olsen RN Position: [facility] RN Member Role: Primary Care Nurse Name: Keely Alcazar RN Position: [facility] RN Member Role: Primary Care Nurse Name: Norah Valdovinos RN Position: [facility] RN Supv Member Role: Primary Care Nurse Name: Laine Lee RN Position: [facility] RN Member Role: Primary Care Nurse Name: Nevin Rosenberg RN Position: [facility] RN Member Role: Primary Care Nurse Name: Suzette Goodrich RN Position: [facility] RN Member Role: Primary Care Nurse Name: Saskia Roach RN Position: [facility] RN Member Role: Primary Care Nurse Name: Carla Hdz RN Position: [facility] Hospital Radiological Engineer Member Role: Primary Care Nurse Name: Kelsey Murphy RN Position: [facility] RN Member Role: Primary Care Nurse Name: Joseph Murdock RN Position: [facility] RN Member Role: Primary Care Nurse Name: Lien Mckeon RN Position: [facility] RN Member Role: Primary Care Nurse Name: Rocío FOSTER Attending Position: [facility] ED Medicine MD Name: Jurgen Nials Position: [facility] ED TA [facility] Member Role: Patient Care Provider Name: Candice Randall RN Position: [facility] ED RN W/OE and Tasks Member Role: Patient Care Provider Name: Chava Yun MD Position: [facility] Resident Member Role: ED Resident Address: Address: [address] [place] [address] [place] [address]- [place] Care Team Related Persons Name: TIMMONSFIDEL Address: home [address] [address] Name: UNKNOWN, NAYELI
--- OUTSIDE RECORDS SUMMARY | 2023-08-02 17:24 | XMS_ITS | Continuity of Care Document ---
Author Name Unknown Organization [facility] ter Address [address] [place] [address]- Care Team Providers Care Kennel Hand Name Role Phone Mike Franks MD Primary Care Physician [place] [facility] 08/01/22 - 08/01/[address] [address]- Discharge Disposition: A-D/C Walkout Attending Physician: Not on Staff, Attending MD Admitting Physician: Not on Staff, Admitting MD Referring Physician: Not on Staff, Referring MD Allergies, Adverse Reactions, Alerts No Known Allergies Medications folic acid 1 mg oral tablet 1 mg, 1, tablet, By Mouth, Daily, # 30 tablet, Refills 0, Tot. Refills 0, Maintenance, 06/18/22 10:50:00 EDT, Route to Pharmacy Electronically, [facility], Partial fill upon patient request if the prescription is for a schedule II opioid... Start Date: 06/18/22 Status: Ordered gabapentin 100 mg oral capsule 100 mg, 1, capsule, By Mouth, 3 times a day, # 90 capsule, Refills 0, Tot. Refills 0, Maintenance, 06/18/22 11:34:00 EDT, Route to Pharmacy Electronically, [facility], Partial fill uponpatient request if the prescription is for a schedu... Start Date: 06/18/22 Status: Ordered Multivitamin Tablet 1 tablet, By Mouth, Daily, 0 Refills, Maintenance, 07/10/22 16:01:00 EDT, Tablet, Partial fill uponpatient request if the prescription is for a schedule II opioid drug. Start Date: 07/10/22 Status: Ordered PHENobarbital 30 mg oral tablet = 30 mg, By Mouth, 2 times a day, # 6 tablet, 0 Refills, Maintenance, 07/10/22 15:57:00 EDT, Tablet, [id number], Partial fill upon patient request if the prescription is for a schedule II opioid drug., 160, cm, 07/10/22 15:36:00 EDT, Height, 6... Start Date: 07/10/22 Stop Date: 07/13/22 Status: Ordered thiamine 100 mg oral tablet 100 mg, 1, tablet, By Mouth, 2 times a day, for 30 days, # 60 tablet, Refills 0, Tot. Refills 0, Acute 08/09/22 15:57:00 EDT, 07/10/22 15:57:00 EDT, Route to Pharmacy Electronically, [id number], Partial fill upon patient request if the prescri... Start Date: 07/10/22 Stop Date: 08/09/22 Status: Ordered venlafaxine 75 mg oral tablet 3 tablet = 225 mg, By Mouth, Daily, # 90 tablet, 0 Refills, Maintenance, 06/18/22 11:48:00 EDT, Tablet, [facility], Partial fill upon patient request if the prescription is for a schedule II opioid drug., 160, cm, 06/18/22 5:09:00 EDT, H... Start Date: 06/18/22 Status: Ordered Problem List Condition Effective Dates Status Health Status Inform ant anxiety(Confirmed) Active Vital Signs Most recent to oldest [Reference Range]: 1 2 Height 160 cm (08/01/22 5:50 PM) Oxygen Saturation [94-100 %] 100 % (08/01/22 5:50 PM) 100 % (08/01/22 5:32 PM) Pulse Rate [55-90 bpm] 73 bpm (08/01/22 5:50 PM) 104 bpm *H* (08/01/22 5:32 PM) Blood Pressure [90-138/55-84 mm Hg] 147/ 96mm Hg *H* (08/01/22 5:50 PM) Respiratory Rate [16-30 br/min] 20 br/mi n (08/01/22 5:50 PM) Temperature [96.8-100.4 DegF] 98.6 DegF (08/01/22 5:50 PM) Mode of Delivery (Oxygen) Room air (08/01/22 5:50 PM) Blood pressure sites Arm, right (08/01/22 5:50 PM) Temperature Route Oral (08/01/22 5:50 PM) Dry Weight 66 kg (08/01/22 5:50 PM) Care Team Personnel Name: Mike Franks MD Address: [address] [place] [address]-
--- OUTSIDE RECORDS SUMMARY | 2023-08-02 17:24 | XMS_ITS | Continuity of Care Document ---
Author Name Unknown Organization [facility] ter Address [address] [place] [address]- Care Team Providers Care Construction Framer Name Role Phone Mike Franks MD Primary Care Physician [id number] Date(s): 02/23/22 - 02/24/[address] [address]- Encounter Diagnosis Toxic ingestion(Final) - 02/23/22 Discharge Disposition: A-D/C Home Attending Physician: Joel Son MD Admitting Physician: Joel Son MD Referring Physician: Not on Staff, Referring MD Allergies, Adverse Reactions, Alerts No Known Allergies Medications folic acid 1 mg oral tablet 1 mg, 1, tablet, By Mouth, Daily, # 30 tablet, Refills 0, Tot. Refills 0, Maintenance, 02/16/22 11:00:00 EDT, Route to Pharmacy Electronically, [facility], Partial fill upon patient request if the prescription is for a schedule II opioid... Start Date: 02/16/22 Stop Date: 03/18/22 Status: Ordered melatonin 3 mg oral tablet 1 tablet = 3 mg, By Mouth, Daily at bedtime, PRN Insomnia, for 30 days, # 30 tablet, 0 Refills, Acute 03/18/22 11:01:00 EDT, 02/16/22 11:01:00 EDT, Tablet, [facility], Partial fill uponpatient request if the prescription is for a schedu... Start Date: 02/16/22 Stop Date: 03/18/22 Status: Ordered multivitamin Vitamin B Complex oral tablet 1 tablet, By Mouth, Daily, # 30 tablet, 0 Refills, Maintenance, 01/28/21 13:19:00 EST, Tablet, [facility], Partial fill upon patient [...] 02/16/22 11:01:00 EDT, Route to Pharmacy Electronically, [facility], Partial fill upon patient [...] 02/16/22 11:00:00 EDT, Route to Pharmacy Electronically, [facility], Partial fill u... Start Date: 02/16/22 Stop Date: 03/18/22 Status: Ordered Problem List Condition Effective Dates Status Health Status Inform ant anxiety(Confirmed) Active Vital Signs Most recent to oldest [Reference Range]: 1 2 3 Oxygen Saturation [94-100 %] 99 % (02/24/22 6:28 AM) 100 % (02/24/22 3:38 AM) 100 % (02/23/22 10:25 PM) Pulse Rate [55-90 bpm] 78 bpm (02/24/22 6:28 AM) 78 bpm (02/24/22 6:28 AM) 89 bpm (02/24/22 3:38 AM) Blood Pressure [90-138/55-84 mm Hg] 119/84mm Hg (02/24/22 6:28 AM) 119/84mm Hg (02/24/22 6:28 AM) 122/83mm Hg (02/24/22 3:38 AM) Respiratory Rate [16-30 br/min] 18 br/min (02/24/22 6:28 AM) 18 br/min (02/24/22 6:28 AM) 16 br/min (02/24/22 3:38 AM) Temperature [96.8-100.4 DegF] 98.5 DegF (02/24/22 3:38 AM) 98.2 DegF (02/23/22 3:07 PM) Mode of Delivery (Oxygen) Room air (02/24/22 6:28 AM) Room air (02/24/22 3:38 AM) Room air (02/23/22 10:25 PM) Blood pressure sites Arm, right (02/24/22 3:38 AM) Arm, left (02/23/22 10:25 PM) Arm, right (02/23/22 7:39 PM) Temperature Route Oral (02/24/22 3:38 AM)
--- OUTSIDE RECORDS SUMMARY | 2023-08-02 17:24 | XMS_ITS | Continuity of Care Document ---
Author Name Unknown Organization [facility] ter Address [address] [place] [address]- Care Team Providers Care Rehabilitation Physician Name Role Phone Mike Franks MD Primary Care Phys[id number] Date(s): 02/25/21 - 02/26/[address] [address]- Encounter Diagnosis Alcohol use with withdrawal(Final) - 02/26/21 Discharge Disposition: A-D/C Home Attending Physician: Elvi Murrell DO Admitting Physician: Elvi Murrell DO Referring Physician: Not on Staff, Referring MD Allergies, Adverse Reactions, Alerts Substance Reaction Severity Status NKA Active Medications folic acid 1 mg oral tablet 1 mg, 1, tablet, By Mouth, Daily, # 30 tablet, Refills 0, Tot. Refills 0, Maintenance, 01/28/21 13:19:00 EST, Route to Pharmacy Electronically, [facility], Partial fill upon patient request if the prescription is for a schedule II opioid... Start Date: 01/28/21 Status: Ordered multivitamin Vitamin B Complex oral tablet 1 tablet, By Mouth, Daily, # 30 tablet, 0 Refills, Maintenance, 01/28/21 13:19:00 EST, Tablet, [facility], Partial fill upon patient request if [...] Date: 01/28/21 Stop Date: 02/27/21 Status: Ordered pyridoxine 100 mg oral tablet 1 tablet = 100 mg, By Mouth, Daily, for 30 days, # 30 tablet, 0 Refills, Acute 02/27/21 13:38:00 EDT, 01/28/21 13:38:00 EST, Tablet, [facility], Partial fill upon patient request if theprescription is for a schedule II opioid drug., 163... Start Date: 01/28/21 Stop Date: 02/27/21 Status: Ordered thiamine 100 mg oral tablet 100 mg, 1, tablet, By Mouth, Daily, for 30 days, # 30 tablet, Refills 0, Tot. Refills 0, Acute 02/27/21 13:19:00 EDT, 01/28/21 13:19:00 EST, Route to Pharmacy Electronically, [facility], Partial fill upon patient request if the prescript... Start Date: 01/28/21 Stop Date: 02/27/21 Status: Ordered Zofran 4 mg oral tablet 1 tablet = 4 mg, By Mouth, Every 8 hours, PRN as needed for nausea/vomiting, # 12 tablet, 0 Refills, Maintenance, 02/26/21 4:06:00 EDT, Tablet, [id number], Partial fill upon patient request if the prescription is for a schedule II opioid drug.... Start Date: 02/26/21 Status: Ordered Problem List Condition Effective Dates Status Health Status Inform ant anxiety(Confirmed) Active Results Orders for Microbiology Reports Name Date Urine Culture (URINE CULTURE) 02/26/21 Microbiology Reports TEST:Urine Culture STATUS:Unauthenticated BODY SITE: SOURCE:URINE COLLECTED DATE/TIME:02/26/21 12:00 AM Urine Culture SPECIMEN DESCRIPTION : URINE CLEAN CATCH/MIDSTREAM SPECIAL REQUESTS : NONE Reflexed from [id number] REPORT STATUS : PRELIMINARY REPORT Vital Signs Most recent to oldest [Reference Range]: 1 2 3 Oxygen Saturation [94-100 %] 99 % (02/26/21 4:11 AM) 99 % (02/26/21 2:15 AM) 99 % (02/26/21 12:01 AM) Pulse Rate [55-90 bpm] 88 bpm (02/26/21 4:11 AM) 80 bpm (02/26/21 2:15 AM) 76 bpm (02/26/21 12:01 AM) Blood Pressure [90-138/55-84 mm Hg] 131/96mm Hg (02/26/21 4:11 AM) 116/81mm Hg (02/26/21 2:15 AM) 142/92mm Hg *H* (02/26/21 12:01 AM) Respiratory Rate [16-30 br/min] 20 br/min (02/26/21 4:11 AM) 16 br/min (02/26/21 2:15 AM) 18 br/min (02/26/21 12:01 AM) Temperature [96.8-100.4 DegF] 98.5 DegF (02/26/21 4:11 AM) 98.8 DegF (02/26/21 12:01 AM) Mode of Delivery (Oxygen) Room air (02/26/21 4:11 AM) Room air (02/26/21 2:15 AM) Room air (02/26/21 12:01 AM) Blood pressure sites Arm, left (02/26/21 4:11 AM) Arm, left (02/26/21 2:15 AM) Arm, right (02/26/21 12:01 AM) Temperature Route Oral (02/26/21 4:11 AM) Oral (02/26/21 12:01 AM)
--- OUTSIDE RECORDS SUMMARY | 2023-08-02 17:24 | XMS_ITS | Continuity of Care Document ---
Author Name Unknown Organization [facility] Address [address] [place] [address]- Care Team Providers Care Speedboat Driver Name Role Phone Mike Franks MD Primary Care Physician Encounter [facility] Date(s): 06/08/20 - 06/08/[address] [address]- [facility] [phone] Discharge Disposition: A-D/C Home Attending Physician: Enrique Reyes MD Admitting Physician: Enrique Reyes MD Referring Physician: Not on Staff, Referring [...] Most recent to oldest [Reference Range]: 1 Height 160 cm (06/08/20 11:28 AM) Weight 52.5 kg (06/08/20 11:28 AM) Oxygen Saturation [94-100 %] 97 % (06/08/20 11:28 AM) Pulse Rate [55-90 bpm] 117 bpm *H* (06/08/20 11:28 AM) Blood Pressure [90-138/55-84 mm Hg] 130/ 82mm Hg (06/08/20 11:28 AM) Respiratory Rate [16-30 br/min] 16 br/mi n (06/08/20 11:28 AM) Temperature [96.8-100.4 DegF] 98.2 DegF (06/08/20 11:28 AM) Mode of Delivery (Oxygen) Room air (06/08/20 11:28 AM) Blood pressure sites Arm, right (06/08/20 11:28 AM) Temperature Route Oral (06/08/20 11:28 AM) Dry Weight 52.5 kg (06/08/20 11:28 AM)
--- OUTSIDE RECORDS SUMMARY | 2023-08-02 17:24 | XMS_ITS | Continuity of Care Document ---
Author Name Unknown Organization [facility] ter Address [address] [place] [id number]- Care Team Providers Care Terrazzo Layer Helper Name Role Phone Mike Franks MD Primary Care Physician Encounter [facility] Date(s): 05/23/20 - 05/24/[address] [address]- [facility] Encounter Diagnosis Alcohol abuse(Final) - 05/24/20 Discharge Disposition: A-D/C Home Attending Physician: Nava Aden MD Admitting Physician: Nava Aden MD Referring Physician: Not on Staff, Referring [...] recent to oldest [Reference Range]: 1 2 Oxygen Saturation [94-100 %] 100 % (05/24/20 2:40 AM) 99 % (05/24/20 12:13 AM) Pulse Rate [55-90 bpm] 98 bpm *H* (05/24/20 2:40 AM) 114 bpm *H* (05/24/20 12:13 AM) Blood Pressure [90-138/55-84 mm Hg] 126/ 77mm Hg (05/24/20 2:40 AM) 134/91mm Hg (05/24/20 12:13 AM) Respiratory Rate [16-30 br/min] 19 br/mi n (05/24/20 2:40 AM) 18 br/min (05/24/20 12:13 AM) Temperature [96.8-100.4 DegF] 98.8 DegF (05/24/20 12:13 AM) Mode of Delivery (Oxygen) Nasal cannula (05/24/20 2:40 AM) Room air (05/24/20 12:13 AM) Temperature Route Oral (05/24/20 12:13 AM)
--- OUTSIDE RECORDS SUMMARY | 2023-08-02 17:24 | XMS_ITS | Continuity of Care Document ---
Author Name Unknown Organization [facility] ter Address [address] [place] [address]- Care Team Providers Care Call Center Receptionist Name Role Phone Mike Franks MD Primary Care Physician Encounter [facility] [id number] Date(s): 01/26/21 - 01/28/[address] [address]- Encounter Diagnosis Alcohol withdrawal(Final) - 01/26/21 Discharge Disposition: A-D/C Home Attending Physician: Sergio Mccollum MD Admitting Physician: Nevin Wagoner MD Referring Physician: Not on Staff, Referring MD Allergies, Adverse Reactions, Alerts Substance Reaction Severity Status NKA Active Medications folic acid 1 mg oral tablet 1 mg, 1, tablet, By Mouth, Daily, # 30 tablet, Refills 0, Tot. Refills 0, Maintenance, 01/28/21 13:19:00 EST, Route to Pharmacy Electronically, [facility], Partial fill upon patient request if the prescription is for a schedule II opioid... Start Date: 01/28/21 Status: Ordered multivitamin Vitamin B Complex oral tablet 1 tablet, By Mouth, Daily, # 30 tablet, 0 Refills, Maintenance, 01/28/21 13:19:00 EST, Tablet, [facility], Partial fill upon patient [...] 02/27/21 13:38:00 EDT, 01/28/21 13:38:00 EST, Tablet, [facility], Partial fill upon patient request if theprescription is for a schedule II opioid drug., 163... Start Date: 01/28/21 Stop Date: 02/27/21 Status: Ordered thiamine 100 mg oral tablet 100 mg, 1, tablet, By Mouth, Daily, for 30 days, # 30 tablet, Refills 0, Tot. Refills 0, Acute 02/27/21 13:19:00 EDT, 01/28/21 13:19:00 EST, Route to Pharmacy Electronically, [facility], Partial fill upon patient request if the prescript... Start Date: 01/28/21 Stop Date: 02/27/21 Status: Ordered Problem List Condition Effective Dates Status Health Status Inform ant anxiety(Confirmed) Active Vital Signs Most recent to oldest [Reference Range]: 1 2 3 Height 163 cm (01/28/21 11:29 AM) 163 cm (01/27/21 10:59 PM) 163 cm (01/27/21 4:57 PM) Weight 72.2 kg (01/27/21 5:15 AM) Oxygen Saturation [94-100 %] 100 % (01/28/21 11:29 AM) 100 % (01/28/21 5:00 AM) 100 % (01/27/21 10:59 PM) Pulse Rate [55-90 bpm] 76 bpm (01/28/21 11:29 AM) 81 bpm (01/28/21 5:00 AM) 80 bpm (01/27/21 10:59 PM) Body Mass Index [18.5-24.99] 27.17 *H* (01/27/21 5:15 AM) Blood Pressure [90-138/55-84 mm Hg] 137/93mm Hg (01/28/21 11:29 AM) 111/91mm Hg (01/28/21 5:00 AM) 125/102mm Hg (01/27/21 10:59 PM) Respiratory Rate [16-30 br/min] 18 br/min (01/28/21 11:29 AM) 20 br/min (01/28/21 5:00 AM) 16 br/min (01/27/21 10:59 PM) Temperature [96.8-100.4 DegF] 97.9 DegF (01/28/21 11:29 AM) 98.1 DegF (01/28/21 5:00 AM) 98 DegF (01/27/21 10:59 PM) Mode of Delivery (Oxygen) Room air (01/28/21 11:29 AM) Room air (01/28/21 5:00 AM) Room air (01/27/21 10:59 PM) Blood pressure sites Arm, left (01/28/21 11:29 AM) Arm, right (01/28/21 5:00 AM) Arm, right (01/27/21 10:59 PM) Temperature Route Oral (01/28/21 11:29 AM) Oral (01/28/21 5:00 AM) Oral (01/27/21 10:59 PM) Dry Weight 72.2 kg (01/27/21 5:15 AM)
--- OUTSIDE RECORDS SUMMARY | 2023-08-02 17:24 | XMS_ITS | Continuity of Care Document ---
Author Name Unknown Organization [facility] ter Address [address] [place] [address]- Care Team Providers Care Naval Architect Specialist Name Role Phone Mike Franks MD Primary Care Physician Encounter [facility] Date(s): 06/13/22 - 06/18/[address] [address]- Encounter Diagnosis Alcohol use with withdrawal(Final) - 06/13/22 Discharge Disposition: A-D/C Home Attending Physician: Benito Adams MD Admitting Physician: Harsha Miles MD Referring Physician: Not on Staff, Referring MD Allergies, Adverse Reactions, Alerts No Known Allergies Medications folic acid 1 mg oral tablet 1 mg, 1, tablet, By Mouth, Daily, # 30 tablet, Refills 0, Tot. Refills 0, Maintenance, 06/18/22 10:50:00 EDT, Route to Pharmacy Electronically, [facility], Partial fill upon patient request if the prescription is for a schedule II opioid... Start Date: 06/18/22 Status: Ordered gabapentin 100 mg oral capsule 100 mg, 1, capsule, By Mouth, 3 times a day, # 90 capsule, Refills 0, Tot. Refills 0, Maintenance, 06/18/22 11:34:00 EDT, Route to Pharmacy Electronically, [facility], Partial fill uponpatient request if the prescription is for a schedu... Start Date: 06/18/22 Status: Ordered magnesium oxide 400 mg oral tablet 1 tablet = 400 mg, By Mouth, 2 times a day, for 7 days, # 14 tablet, 0 Refills, Acute 06/25/22 10:50:00 EDT, 06/18/22 10:50:00 EDT, Tablet, [facility], Partial fill upon patient requestif the prescription is for a schedule II opioid sai... Start Date: 06/18/22 Stop Date: 06/25/22 Status: Ordered Neurontin 100 mg oral capsule 100 mg, Capsule, By Mouth, 06/18/22 9:00:00 EDT Start Date: 06/18/22 Stop Date: 06/18/22 Status: Completed pyridoxine 50 mg oral tablet 50 mg, 1, tablet, By Mouth, Daily, for 30 days, # 30 tablet, Refills 0, Tot. Refills 0, Acute 07/18/22 10:50:00 EDT, 06/18/22 10:50:00 EDT, Route to Pharmacy Electronically, [facility],Partial fill upon patient request if the prescripti... Start Date: 06/18/22 Stop Date: 07/18/22 Status: Ordered venlafaxine 75 mg oral tablet 3 tablet = 225 mg, By Mouth, Daily, # 90 tablet, 0 Refills, Maintenance, 06/18/22 11:48:00 EDT, Tablet, [facility], Partial fill upon patient request if the prescription is for a schedule II opioid drug., 160, cm, 06/18/22 5:09:00 EDT, H... Start Date: 06/18/22 Status: Ordered Problem List Condition Effective Dates Status Health Status Inform ant anxiety(Confirmed) Active Vital Signs Most recent to oldest [Reference Range]: 1 2 3 Height 160 cm (06/18/22 5:09 AM) 160 cm (06/17/22 8:33 PM) 160 cm (06/17/22 2:10 PM) Weight 68.1 kg (06/14/22 1:57 PM) 65.6 kg (06/14/22 4:03 AM) 65.6 kg (06/13/22 8:14 AM) Oxygen Saturation [94-100 %] 99 % (06/18/22 5:09 AM) 99 % (06/17/22 8:33 PM) 98 % (06/17/22 2:10 PM) Pulse Rate [55-90 bpm] 85 bpm (06/18/22 9:36 AM) 66 bpm (06/18/22 5:27 AM) 66 bpm (06/18/22 5:09 AM) Body Mass Index [18.5-24.99] 26.6 *H* (06/14/22 1:57 PM) 25.63 *H* (06/14/22 4:03 AM) 25.63 *H* (06/13/22 8:14 AM) Blood Pressure [90-138/55-84 mm Hg] 139/100mm Hg *H* (06/18/22 9:36 AM) 105/66mm Hg (06/18/22 5:27 AM) 105/66mm Hg (06/18/22 5:09 AM) Respiratory Rate [16-30 br/min] 18 br/min (06/18/22 9:36 AM) 18 br/min (06/18/22 9:11 AM) 18 br/min (06/18/22 8:11 AM) Temperature [96.8-100.4 DegF] 98 DegF (06/18/22 5:09 AM) 98.8 DegF (06/17/22 8:33 PM) 97.4 DegF (06/17/22 2:10 PM) Mode of Delivery (Oxygen) Room air (06/18/22 5:09 AM) Room air (06/17/22 8:33 PM) Room air (06/17/22 2:10 PM) Blood pressure sites Arm, right (06/18/22 5:09 AM) Arm, right (06/17/22 8:33 PM) Arm, right (06/17/22 5:22 AM) Temperature Route Oral (06/18/22 5:09 AM) Oral (06/17/22 8:33 PM) Oral (06/17/22 2:10 PM) Dry Weight 68 kg (06/14/22 1:57 PM) 65.6 kg (06/14/22 4:03 AM) 65.6 kg (06/13/22 8:14 AM) Weight Obtained Via Patient/family stated (06/14/22 1:57 PM) Standing scale (06/13/22 8:14 AM) Dry Weight Obtained Via Bed scale (06/14/22 1:57 PM) Standing scale (06/13/22 8:14 AM)
--- OUTSIDE RECORDS SUMMARY | 2023-08-02 17:24 | XMS_ITS | Continuity of Care Document ---
Author Name Unknown Organization [facility] Address [address] [place] [address]- Care Team Providers Care Carding Machine Feeder Name Role Phone Mike Franks MD Primary Care Physician Encounter [facility] Date(s): 11/23/22 - 11/24/[address] [address]- Discharge Disposition: A-D/C Home Attending Physician: Leonardo Guzmán DO Admitting Physician: Leonardo Guzmán DO Referring Physician: Not on Staff, Referring MD Allergies, Adverse Reactions, Alerts No Known Allergies Medications Acetaminophen Tablet 975 mg, Tablet, By Mouth, Once, STAT, 11/24/22 1:32:00 EST, Stop date 11/24/22 1:32:00 EST Start Date: 11/24/22 Stop Date: 11/24/22 Status: Completed ARIPiprazole 5 mg oral tablet 5 mg, 1, tablet, By Mouth, Daily, # 30 tablet, Refills 0, Maintenance, 09/29/22 1:47:00 EST, Partial fill upon patient request if the prescription is for a schedule II opioid drug. Start Date: 09/29/22 Status: Ordered busPIRone 7.5 mg oral tablet 1 tablet = 7.5 mg, By Mouth, 3 times a day, # 270 tablet, 0 Refills, Maintenance, 09/29/22 1:46:00 EST, Tablet, Partial fill upon patient request if the prescription is for a schedule II opioid drug. Start Date: 09/29/22 Status: Ordered cloNIDine 0.1 mg oral tablet 0.1 mg, 1, tablet, By Mouth, Daily at bedtime, # 30 tablet, Refills 0, Maintenance, 09/29/22 1:46:00 EST, Partial fill upon patient request if the prescription is for a schedule II opioid drug. Start Date: 09/29/22 Status: Ordered folic acid 1 mg oral tablet 1 mg, 1, tablet, By Mouth, Daily, # 30 tablet, Refills 0, Tot. Refills 0, Maintenance, 06/18/22 10:50:00 EDT, Route to Pharmacy Electronically, [facility], Partial fill upon patient request if the prescription is for a schedule II opioid... Start Date: 06/18/22 Status: Ordered Multivitamin Tablet 1 tablet, By Mouth, Daily, 0 Refills, Maintenance, 07/10/22 16:01:00 EDT, Tablet, Partial fill uponpatient request if the prescription is for a schedule II opioid drug. Start Date: 07/10/22 Status: Ordered prazosin 1 mg oral capsule 1 mg, 1, capsule, By Mouth, 2 times a day, Refills 0, Maintenance, 09/29/22 1:46:00 EST, Partial fill upon patient request if the prescription is for a schedule II opioid drug. Start Date: 09/29/22 Status: Ordered Zoloft 25 mg oral tablet 1 tablet = 25 mg, By Mouth, Daily, # 30 tablet, 0 Refills, Maintenance, 11/24/22 0:29:00 EST, Tablet, Partial fill upon patient request if the prescription is for a schedule II opioid drug. Start Date: 11/24/22 Status: Ordered Problem List Condition Confirmation Course Effective Dates Status Health St atus Informant anxiety Confirmed Active Vital Signs Most recent to oldest [Reference Range]: 1 2 3 Height 160 cm (11/23/22 11:34 PM) 160 cm (11/23/22 11:31 PM) Weight 66.9 kg (11/23/22 11:34 PM) 66.9 kg (11/23/22 11:31 PM) Oxygen Saturation [94-100 %] 99 % (11/24/22 6:54 AM) 99 % (11/24/22 2:24 AM) 98 % (11/23/22 11:31 PM) Pulse Rate [55-90 bpm] 88 bpm (11/24/22 6:54 AM) 91 bpm *H* (11/24/22 2:24 AM) 104 bpm *H* (11/23/22 11:31 PM) Body Mass Index [18.5-24.99 kg/m2] 26.13 kg/m2 *H* (11/23/22 11:31 PM) Blood Pressure [90-138/55-84 mm Hg] 117/85mm Hg (11/24/22 6:54 AM) 122/87mm Hg (11/24/22 2:24 AM) 145/104mm Hg *H* (11/23/22 11:31 PM) Respiratory Rate [16-30 br/min] 16 br/min (11/24/22 6:54 AM) 16 br/min (11/24/22 2:24 AM) 16 br/min (11/24/22 2:21 AM) Temperature [96.8-100.4 DegF] 98.6 DegF (11/23/22 11:31 PM) Mode of Delivery (Oxygen) Room air (11/24/22 6:54 AM) Room air (11/24/22 2:24 AM) Room air (11/23/22 11:31 PM) Temperature Route Oral (11/23/22 11:31 PM) Dry Weight 66.9 kg (11/23/22 11:34 PM) 66.9 kg (11/23/22 11:31 PM) Weight Obtained Via Standing scale (11/23/22 11:31 PM) Patient Care team information Care Team Personnel Name: Mike Franks MD Position: [facility] Outreach Member Role: PCP Address: Address: [address] [place] [address] [address], [place] [address] Name: Hiwot Yepez RN Position: [facility] RN Member Role: Primary Care Nurse Name: Gladys Ramirez MD Position: [facility] Physician -Physician Practices Member Role: Lifetime Consulting Physician Name: Lorena Pascual RN Position: [facility] RN Member Role: Primary Care Nurse Name: Debbie Hoffmann RN Position: [facility] RN Member Role: Primary Care Nurse Name: Nevin Rosenberg RN Position: [facility] RN Member Role: Primary Care Nurse Name: Suzette Goodrich RN Position: [facility] RN Member Role: Primary Care Nurse Name: Carla Hdz RN Position: [facility] Hospital Manager Small Business Member Role: Primary Care Nurse Name: Kelsey Murphy RN Position: [facility] RN Member Role: Primary Care Nurse Name: Joseph Murdock RN Position: [facility] RN Member Role: Primary Care Nurse Name: Lien Mckeon Position: [facility] RN Member Role: Primary Care Nurse Name: Joel Shetty Position: [facility] ED OA Member Role: Patient Care Provider Name: Leonardo Guzmán DO Position: [facility] ED Medicine MD Member Role: ED Attending Physician Address: Address: [address] [place] [address] Emergency Medicine[facility] [address]- Name: Coty Mcgraw RN Position: [facility] ED RN W/OE and Tasks Member Role: Patient Care Provider Care Team Related Persons Name: FIDEL BEAUCHAMP Address: [address] [place] [address] Name: NAYELI ARRIAGA
--- OUTSIDE RECORDS SUMMARY | 2023-08-02 17:24 | XMS_ITS | Continuity of Care Document ---
Author Name Unknown Organization [facility] Address [address] [place] [address]- Care Team Providers Care Thread Puller Name Role Phone Mike Franks MD Primary Care Physician Encounter [facility] Date(s): 12/10/19 - 12/20/19 [facility] [address] [place] [address]- [facility] Attending Physician: Kasey Perea Admitting Physician: Kasey Perea Referring Physician: Admtr, Ar8 Allergies, Adverse Reactions, Alerts Substance Reaction Severity [...]
--- OUTSIDE RECORDS SUMMARY | 2023-08-02 17:24 | XMS_ITS | Continuity of Care Document ---
Author Name Unknown Organization [facility] ter Address [address] [place] [address]- Care Team Providers Care Exercise Physiology Professor Name Role Phone Mike Franks MD Primary Care Physician [phone] Encounter [facility] Date(s): 06/07/20 - 06/07/[address] [address]- [facility] Encounter Diagnosis Alcohol intoxication(Final) - 06/07/20 Discharge Disposition: A-D/C Home Attending Physician: Abdirizak Brooks MD Admitting Physician: Abdirizak Brooks MD Referring Physician: Not on Staff, Referring [...] Exam Date Time Procedure Performing Provider Status 06/07/20 6:45 AM Chest 2 Views Frontal and Lat Rachel Torres i; Auth (Verified) Notes: (Chest 2 Views Frontal and Lat) Reason For Exam: Shortness of Breath, Fever;Other: RESULT: Chest 2 Views Frontal and Lat Chest 2 Views Frontal and Lat Refer to EMR; Reason: Other:; Shortness of Breath, Fever; Clinical Question(s): Pneumonia; Hx of Present Illness: pt wants detox from alcohol, states she drank a 6-pack of beer prior to coming; OtherObjective Findings: awake, altered, slow speech, etoh halitosis, unsteady on feet, drowsy, difficuty ambulating uc1 pard f0 fs20 awake, altered, slow speech, etoh halitosis, unsteady on feet, drowsy COMPARISON: None. FINDINGS: LINES AND TUBES: None. LUNGS AND PLEURA: Clear lungs. Normal pulmonary vascularity. No pleural effusion. No pneumothorax. HEART, MEDIASTINUM AND CAMILA: Heart is normal in size. Normal mediastinal and hilar contour. BONES AND SOFT TISSUES: No acute abnormality. IMPRESSION: No acute abnormality. WSN: [id number] Ordering Physician: Erickson Dunlap Dictated By: Mena Russell MD Dictated Date/Time: 06/07/20 7:35 am Reviewed By: Mena Russell MD Signed By: Mena Russell MD Signed Date/Time: 06/07/20 7:35 am Transcribed By: JAMES Transcribed Date/Time: 06/07/20 7:35 am Vital Signs Most recent to oldest [Reference Range]: 1 2 3 Oxygen Saturation [94-100 %] 97 % (06/07/20 1:14 PM) 96 % (06/07/20 11:21 AM) 95 % (06/07/20 9:00 AM) Pulse Rate [55-90 bpm] 99 bpm *H* (06/07/20 1:14 PM) 100 bpm *H* (06/07/20 11:21 AM) 108 bpm *H* (06/07/20 9:00 AM) Blood Pressure [90-138/55-84 mm Hg] 105/74mm Hg (06/07/20 1:14 PM) 103/77mm Hg (06/07/20 11:21 AM) 106/69mm Hg (06/07/20 9:00 AM) Respiratory Rate [16-30 br/min] 16 br/min (06/07/20 1:14 PM) 16 br/min (06/07/20 11:21 AM) 14 br/min *L* (06/07/20 9:00 AM) Temperature [96.8-100.4 DegF] 98.1 DegF (06/07/20 4:51 AM) Mode of Delivery (Oxygen) Room air (06/07/20 1:14 PM) Room air (06/07/20 11:21 AM) Room air (7/19/20 9:00 AM) Blood pressure sites Arm, left (06/07/20 1:14 PM) Arm, left (06/07/20 11:21 AM) Arm, left (06/07/20 9:00 AM) Temperature Route Oral (06/07/20 4:51 AM)
--- OUTSIDE RECORDS SUMMARY | 2023-08-02 17:24 | XMS_ITS | Continuity of Care Document ---
Author Name Unknown Organization [facility] ter Address [address] [place] [address]- Care Team Providers Care Auto Body Builder Apprentice Name Role Phone Mike Franks MD Primary Care Physician [phone] Encounter [facility] Date(s): 01/09/23 - 01/10/[address] [address]- Encounter Diagnosis Alcohol intoxication(Final) - 01/09/23 Discharge Disposition: A-D/C Home Attending Physician: Anibal Cancino MD Admitting Physician: Anibal Cancino MD Referring Physician: Not on Staff, Referring MD Allergies, Adverse Reactions, Alerts No Known Allergies Medications ARIPiprazole 5 mg oral tablet 5 mg, [...] 06/18/22 10:50:00 EDT, Route to Pharmacy Electronically, [facility], Partial fill upon patient request [...] 3 Oxygen Saturation [94-100 %] 99 % (01/10/23 5:19 AM) 97 % (01/10/23 1:14 AM) 98 % (01/09/23 11:48 PM) Pulse Rate [55-90 bpm] 91 bpm *H* (01/10/23 5:19 AM) 93 bpm *H* (01/10/23 1:14 AM) 94 bpm *H* (01/09/23 11:48 PM) Blood Pressure [90-138/55-84 mm Hg] 104/70mm Hg (01/10/23 5:19 AM) 103/71mm Hg (01/10/23 1:14 AM) 103/74mm Hg (01/09/23 11:48 PM) Respiratory Rate [16-30 br/min] 16 br/min (01/10/23 5:19 AM) 15 br/min *L* (01/10/23 1:14 AM) 16 br/min (01/09/23 11:48 PM) Temperature [96.8-100.4 DegF] 98.6 DegF (01/09/23 7:59 PM) Mode of Delivery (Oxygen) Room air (01/10/23 5:19 AM) Room air (01/10/23 1:14 AM) Room air (01/09/23 11:48 PM) Blood pressure sites Arm, right (01/10/23 5:19 AM) Arm, right (01/10/23 1:14 AM) Arm, right (01/09/23 11:48 PM) Temperature Route Oral (01/09/23 7:59 PM) Note * Julita WARD, Anibal Adkins: PERFORM Event Display: Patient Education Leaflets Authored Date: [id number] Alcohol Intoxication ?? [id number] Alcohol Intoxication Alcohol intoxication is very serious. It occurs when you drink alcohol faster than your liver can break it down. Severe intoxication is a medical emergency. It's also called alcohol overdose or alcohol poisoning. It can lead to . Here are some nolan facts: ??? It can take 10 minutes or more??to start??to??feel the effects of a drink. So it's easy to drink more than you planned. Binge drinking can lead to an alcohol overdose. Binge drinking is having: o5 or more drinks over a short time for men o 4 or more drinks over a short time for women ??? One drink may be more than 1 serving of alcohol. In some cases, a drink can be 2 to 4 servings. This depends on the type of drink. ??? It takes about 1 hour for your body to break down 1 serving of alcohol. If you have more than 1 drink, it can take a few hours or more. ??? People with alcohol abuse disorders are more likely to get alcohol poisoning. But it can happen to anyone who drinks too much alcohol. Even a first-time drinker is at risk. ??? Many things affect how drinks will affect you. These include: o If you've eaten o How fast you drink o Your weight o How much you normally drink (or not)o Medicines you are taking o If you have a chronic disease o If you are male or female o How old you are Symptoms of alcohol intoxication Mild intoxication ??? Feel more relaxed, less tense ??? Slightly slurred speech ??? Sleepiness ??? Poor motor skills Moderate intoxication ??? Changing behavior, aggression, depression ??? Poor judgment ??? Confusion ??? Trouble focusing ??? Poor balance and coordination ??? Worsening slurred speech Severe intoxication ??? Vomiting ??? Seizures ??? Fainting or passing out (unconscious) ??? Cold, clammy skin ??? Slow or irregular breathing ??? Low body temperature (hypothermia) ??? Coma ?? Health effects Alcohol causes health problems.??This can happen after only drinking a little. There is no set number of drinks or amount of alcohol that's too much.??How much you drink at one time affects your health. And so does drinking often. Alcohol affects your whole body in these ways: ??? Brain.??Alcohol can harm parts of the brain that affect your balance, memory, thinking, and feelings. It can cause memory loss, blackouts, depression, agitation, sleep cycle changes, and seizures. These changes may or may not go away. ??? Heart and vascular system.??Alcohol can damage heart muscle. This can cause the heart muscle to weaken and stretch (cardiomyopathy). This can lead to: o Trouble breathing o Irregular heartbeat o Atrial fibrillation o Leg swelling o Heart failure Alcohol also makes the blood vessels stiffen. This causes high blood pressure. All of these problems raise your risk for heart attacks or strokes. ??? Liver.??Alcohol causes fat to build up in the liver. This affects how the liver works. And it raises the risk for hepatitis. This condition leads to belly pain, appetite loss, yellow skin and eyes (jaundice), and bleeding problems. It also leads to harmful changes in the liver. These include??liver fibrosis and cirrhosis. This can affect your ability to fight off infections. These liver changes stop it from removing toxins in your blood. This can cause a brain disease called encephalopathy. ??? Pancreas.??Alcohol can cause inflammation of the pancreas (pancreatitis). It can lead to belly pain, fever, and diabetes. ??? Immune system.??Alcohol weakens your immune system. This makes it harder to fight off infections and colds. You'll also have a higherrisk of some infections. ??? Cancer risk.??Alcohol raises your risk of some types of cancer. They include cancer of the: o Mouth o Esophagus o Pharynx o Larynx o Liver o Breast ? Sexual function.??Alcohol abuse can also lead to sexual problems. There is no safe level of alcohol use for people who are or thinking of getting . Alcohol use in may cause lifelong harm to the baby. So alcohol should be avoided. It can also cause a group of defects called alcohol spectrum disorder. These defects can include physical problems. And also behavior and learning problems. ?? Home care for alcohol intoxication Follow these tips to care for yourself at home: ??? Don't drink any more alcohol. ??? Don't drive??until all effects of the alcohol have worn off. ??? Don't use machinery that can cause injuries. ??? Get lots of rest over the next few days. ??? Drink plenty of water and other drinks that don't have alcohol. ??? Try to eat regular meals. If you have been drinking a lot every day, you may have alcohol withdrawal. Symptoms often last 3 to 4 days. They may include: ??? Nervousness ??? Shakiness ??? Nausea ??? Sweating ??? Sleeplessness They may also include severe, life-threatening symptoms. These are known as delirium tremens (DTs).DTs typically begin between 48 and 96 hours after the last drink and last 1 to 5 days. They include: ??? Seizures ??? Confusion ??? Seeing or hearing things that are not there (hallucinations) Alcohol withdrawal can cause . Call your healthcare provider before you stop drinking. This isespecially important if you've had DTs during past alcohol withdrawals. They may be able to help you with medicine. They can also refer you to an inpatient detox program. Or stay with family or friends who know when to call for medical help and can support you. If you have severe symptoms, call your provider or call 911 for help (see below). ?? Follow-up care These groups can help you and your loved one: ??? Alcoholics Anonymous (A.A.). Gives support through a self-help fellowship. ?? Find A.A. meetings near you at www.aa.org. ??? Al-Anofranklin. ?? Gives support to families at www.al-anon.org . Or call 035-024-3713. ??? SMART Recovery ( Self- Management and Recovery Training). A nationwide abstinence-oriented support group for people with addictive issues. This free program is focused on motivation to change, urge control, and living a balanced life. For more information and meetings near you, go to www.Dympol.org/ ??? Substance Abuse and Mental Health Services Administration ([facility]) Treatment Manager Digital. Free information on treatment resources in your area at https://findtreatment.gov/. Or call 143-725-0899. Call 911 Call 911 if any of these occur: ??? Trouble breathing or slow irregular breathing ??? Chest pain ??? Sudden weakness on 1 side of your body or sudden trouble speaking ??? Heavy bleeding or vomiting blood ??? Very sleepy or having trouble waking up ??? Fainting ??? Fast heart rate ??? Seizure ?? When to get medical advice Call your healthcare provider right away if any of these occur: ??? Severe shakiness? Fever of100.4??F (38??C) or higher, or as advised by your provider ??? Confusion or hallucinations ??? Painin your upper belly that gets worse ??? Repeated vomiting ?? Last Reviewed Date: 2022 ?? [id number] The [employer]. All rights reserved. This information is not intended as a substitute for professional medical care. Always follow your healthcare professional's instructions. ?? Patient Care team information Care Team Personnel Name: Mike Franks MD Position: [facility] Outreach Member Role: PCP Address: Address: [address] [place] [address] Mike Franks MD [place], [place] [address] Name: Hiwot Yepez RN Position: [facility] RN Member Role: Primary Care Nurse Name: Gladys Ramirez MD Position: [facility] Physician -Physician Practices Member Role: Lifetime Consulting Physician Name: Lorena Pascual RN Position: [facility] RN Member Role: Primary Care Nurse Name: Debbie Hoffmann RN Position: [facility] RN Member Role: Primary Care Nurse Name: Nevin Rosenberg RN Position: [facility] RN Member Role: Primary Care Nurse Name: Suzette Goodrich RN Position: [facility] RN Member Role: Primary Care Nurse Name: Carla Hdz RN Position: [facility] Crosscutter Member Role: Primary Care Nurse Name: Kelsey Murphy RN Position: [facility] RN Member Role: Primary Care Nurse Name: Joseph Murdock RN Position: [facility] RN Member Role: Primary Care Nurse Name: Lien Mckeon Position: [facility] RN Member Role: Primary Care Nurse [facility] Attending Position: [facility] ED Attendings Patient Name: Mary Jane Hartley Position: [facility] ED TA [facility] Member Role: Patient Care Provider Name: Beck Reich RN Position: [facility] ED RN W/OE and Tasks Member Role: Patient Care Provider Name: Anibal Cancino MD Position: [facility] ED Medicine MD Member Role: Admitting Physician Address: Address: [address] [place] [address] [place] [address]- Care Team Related Persons Name: FIDEL BEAUCHAMP Address: home [address] [address] Name: NAYELI ARRIAGA
--- OUTSIDE RECORDS SUMMARY | 2023-08-02 17:24 | XMS_ITS | Continuity of Care Document ---
Author Name Unknown Organization [facility] ter Address [address] [place] [address]- Care Team Providers Care Highway Painter Name Role Phone Mike Franks MD Primary Care Physician [phone] [id number] Date(s): 05/22/21 - 05/22/[address] [address]- Discharge Disposition: A-D/C Walkout Attending Physician: Not [...] 01/28/21 13:19:00 EST, Route to Pharmacy Electronically, [facility], Partial fill upon patient request if the prescription is for a schedule II opioid... Start Date: 01/28/21 Status: Ordered multivitamin Vitamin B Complex oral tablet 1 tablet, By Mouth, Daily, # 30 tablet, 0 Refills, Maintenance, 01/28/21 13:19:00 EST, Tablet, [facility], Partial fill upon patient request [...] Refills, Maintenance, 02/26/21 4:06:00 EDT, Tablet, [id number], Partial fill upon patient request if the prescription is for a schedule II opioid drug.... Start Date: 02/26/21 Status: Ordered Problem List Condition Effective Dates Status Health Status Inform ant anxiety(Confirmed) Active Vital Signs Most recent to oldest [Reference Range]: 1 Oxygen Saturation [94-100 %] 100 % (05/22/21 1:54 AM) Pulse Rate [55-90 bpm] 118 bpm *H* (05/22/21 1:54 AM) Blood Pressure [90-138/55-84 mm Hg] 132/ 98mm Hg (05/22/21 1:54 AM) Respiratory Rate [16-30 br/min] 16 br/mi n (05/22/21 1:54 AM) Temperature [96.8-100.4 DegF] 98.4 DegF (05/22/21 1:54 AM) Mode of Delivery (Oxygen) Room air (05/22/21 1:54 AM) Blood pressure sites Arm, right (05/22/21 1:54 AM) Temperature Route Oral (05/22/21 1:54 AM)
--- OUTSIDE RECORDS SUMMARY | 2023-08-02 17:24 | XMS_ITS | Continuity of Care Document ---
Author Name Unknown Organization [facility] ter Address [address] [place] [address]- Care Team Providers Care Lab Tester Name Role Phone Mike Franks MD Primary Care Physician [phone] Encounter [facility] Date(s): 10/04/22 - 10/04/[address] [address]- Encounter Diagnosis Alcohol intoxication(Final) - 10/04/22 Discharge Disposition: A-D/C Home Attending Physician: Abdi Knox MD Admitting Physician: Abdi Knox MD Referring Physician: Not on Staff, Referring [...] opioid drug. Start Date: 09/29/22 Status: Ordered escitalopram 5 mg oral tablet 1 tablet = 5 mg, By Mouth, Daily, # 30 tablet, 0 Refills, Maintenance, 09/29/22 1:46:00 EST, Tablet, Partial fill upon patient request if the prescription is for a schedule II opioid drug. Start Date: 09/29/22 Status: Ordered folic acid 1 mg oral tablet 1 mg, 1, tablet, By Mouth, Daily, # 30 tablet, Refills 0, Tot. Refills 0, Maintenance, 06/18/22 10:50:00 EDT, Route to Pharmacy Electronically, [facility], Partial fill upon patient request if the prescription is for a schedule II opioid... Start Date: 06/18/22 Status: Ordered gabapentin 100 mg oral capsule 100 mg, 1, capsule, By Mouth, 3 times a day, # 90 capsule, Refills 0, Tot. Refills 0, Maintenance, 06/18/22 11:34:00 EDT, Route to Pharmacy Electronically, [facility], Partial fill uponpatient request if the prescription is for a schedu... Start Date: 06/18/22 Status: Ordered levETIRAcetam 250 mg oral tablet 2 tablet = 500 mg, By Mouth, 2 times a day, # 120 tablet, 0 Refills, Maintenance, 09/29/22 1:47:00 EST, Tablet, Partial fill upon patient request if the prescription is for a schedule II opioid drug. Start Date: 09/29/22 Status: Ordered Multivitamin Tablet 1 tablet, By Mouth, Daily, 0 Refills, Maintenance, 07/10/22 16:01:00 EDT, Tablet, Partial fill uponpatient request if the prescription is for a schedule II opioid drug. Start Date: 07/10/22 Status: Ordered PHENobarbital 30 mg oral tablet = 30 mg, By Mouth, 2 times a day, # 6 tablet, 0 Refills, Maintenance, 07/10/22 15:57:00 EDT, Tablet, [id number], Partial fill upon patient request if the prescription is for a schedule II opioid drug., 160, cm, 07/10/22 15:36:00 EDT, Height, 6... Start Date: 07/10/22 Stop Date: 07/13/22 Status: Ordered prazosin 1 mg oral capsule 1 mg, 1, capsule, By Mouth, 2 times a day, Refills 0, Maintenance, 09/29/22 1:46:00 EST, Partial fill upon patient request if the prescription is for a schedule II opioid drug. Start Date: 09/29/22 Status: Ordered QUEtiapine 100 mg oral tablet 100 mg, 1, tablet, By Mouth, 3 times a day, # 270 tablet, Refills 0, Maintenance, 09/29/22 1:46:00 EST, Partial fill upon patient request if the prescription is for a schedule II opioid drug. Start Date: 09/29/22 Status: Ordered topiramate 25 mg oral tablet 2 tablet = 50 mg, By Mouth, Daily, # 180 tablet, 0 Refills, Maintenance, 09/29/22 1:46:00 EST, Tablet, Partial fill upon patient request if the prescription is for a schedule II opioid drug. Start Date: 09/29/22 Status: Ordered venlafaxine 75 mg oral tablet 3 tablet = 225 mg, By Mouth, Daily, # 90 tablet, 0 Refills, Maintenance, 06/18/22 11:48:00 EDT, Tablet, [facility], Partial fill upon patient request if the prescription is for a schedule II opioid drug., 160, cm, 06/18/22 5:09:00 EDT, H... Start Date: 06/18/22 Status: Ordered Problem List Condition Confirmation Course Effective Dates Status Health St atus Informant anxiety Confirmed Active Vital Signs Most recent to oldest [Reference Range]: 1 2 3 Oxygen Saturation [94-100 %] 99 % (10/04/22 6:44 AM) 99 % (10/04/22 1:39 AM) Pulse Rate [55-90 bpm] 79 bpm (10/04/22 6:44 AM) 79 bpm (10/04/22 6:36 AM) 89 bpm (10/04/22 2:35 AM) Blood Pressure [90-138/55-84 mm Hg] 117/72mm Hg (10/04/22 6:44 AM) 117/72mm Hg (10/04/22 6:36 AM) 129/79mm Hg (10/04/22 2:35 AM) Respiratory Rate [16-30 br/min] 16 br/min (10/04/22 6:44 AM) 16 br/min (10/04/22 6:36 AM) 18 br/min (10/04/22 2:35 AM) Temperature [96.8-100.4 DegF] 98.0 DegF (10/04/22 6:44 AM) 98.1 DegF (10/04/22 6:36 AM) 98.2 DegF (10/04/22 1:39 AM) Mode of Delivery (Oxygen) Room air (10/04/22 6:44 AM) Room air (10/04/22 1:39 AM) Temperature Route Oral (10/04/22 6:44 AM) Oral (10/04/22 6:36 AM) Oral (10/04/22 1:39 AM) Patient Care team information Care Team Personnel Name: Danyell Escobedo RN Position: [facility] RN Member Role: Primary Care Nurse Name: Mike Franks MD Position: [facility] Outreach Member Role: PCP Address: Address: [address] [place] [address] [place], [place] [address] Name: Hiwot Yepez RN Position: [facility] RN Member Role: Primary Care Nurse Name: Gladys Ramirez MD Position: [facility] Physician -Physician Practices Member Role: Lifetime Consulting Physician Name: Lorena Pascual RN Position: [facility] RN Member Role: Primary Care Nurse Name: Debbie Hoffmann RN Position: [facility] RN Member Role: Primary Care Nurse Name: Nevin Rosenberg RN Position: [facility] RN Member Role: Primary Care Nurse Name: Suzette Goodrich RN Position: [facility] RN Member Role: Primary Care Nurse Name: Carla Hdz RN Position: [facility] Hospital Wax Ball Knock Out Worker Member Role: Primary Care Nurse Name: Kelsey Murphy RN Position: [facility] RN Member Role: Primary Care Nurse Name: Joseph Murdock RN Position: [facility] RN Member Role: Primary Care Nurse Name: Lien Mckeon Position: [facility] RN Member Role: Primary Care Nurse Name: Rosio Hassan Position: [facility] ED [facility] Name: Zully Cavazos RN Position: [facility] ED RN W/OE and Tasks Member Role: Patient Care Provider Name: Jena Hernandez MD Position: [facility] Resident Member Role: ED Resident Address: Address: [address] [place] [address]- Name: Abdi Knox MD Position: [facility] ED Medicine MD Member Role: Admitting Physician Address: Address: [address] [place] [address]- [place] Care Team Related Persons Name: FIDEL BEAUCHAMP Address: home [address] [place] [address] [place] [address] Name: UNKNOWN, NAYELI
--- OUTSIDE RECORDS SUMMARY | 2023-08-02 17:24 | XMS_ITS | Continuity of Care Document ---
Author Name Unknown Organization [facility] Address [address] [place] [address]- Care Team Providers Care Pl Sql Programmer Name Role Phone Mike Franks MD Primary Care Physician [phone] Encounter [facility] Date(s): 06/11/20 - 06/12/20 [facility] [address] [place] [address]- [facility] [phone] Encounter Diagnosis Alcohol dependence(Final) - 06/12/20 Discharge Disposition: A-D/C Home Attending Physician: Alex Jimenez MD Admitting Physician: Alex Jimenez MD Referring Physician: Not on Staff, Referring [...] Range]: 1 2 3 Height 160 cm (06/11/20 10:50 PM) 160 cm (06/11/20 9:29 PM) 160 cm (06/11/20 8:05 PM) Weight 68 kg (06/11/20 10:50 PM) 68 kg (06/11/20 9:29 PM) 68 kg (06/11/20 8:05 PM) Oxygen Saturation [94-100 %] 98 % (06/12/20 5:00 AM) 96 % (06/12/20 4:00 AM) 97 % (06/12/20 2:00 AM) Pulse Rate [55-90 bpm] 99 bpm *H* (06/12/20 5:00 AM) 97 bpm *H* (06/12/20 4:00 AM) 90 bpm (06/12/20 2:00 AM) Body Mass Index [18.5-24.99] 26.56 *H* (06/11/20 10:50 PM) 26.56 *H* (06/11/20 9:29 PM) 26.56 *H* (06/11/20 8:05 PM) Blood Pressure [90-138/55-84 mm Hg] 108/64mm Hg (06/12/20 5:00 AM) 106/77mm Hg (06/12/20 12:24 AM) 118/86mm Hg (06/11/20 9:29 PM) Respiratory Rate [16-30 br/min] 16 br/min (06/12/20 12:24 AM) 16 br/min (06/11/20 9:29 PM) 16 br/min (06/11/20 8:05 PM) Temperature [96.8-100.4 DegF] 97 DegF (06/11/20 8:05 PM) 97.2 DegF (06/11/20 6:07 PM) Mode of Delivery (Oxygen) Room air (06/12/20 5:00 AM) Room air (06/12/20 4:00 AM) Room air (06/12/20 2:00 AM) Blood pressure sites Arm, left (06/11/20 9:29 PM) Arm, left (06/11/20 8:05 PM) Arm, left (06/11/20 6:07 PM) Temperature Route Oral (06/11/20 8:05 PM) Oral (06/11/20 6:07 PM) Dry Weight 68 kg (06/11/20 10:50 PM) 68 kg (06/11/20 9:29 PM) 68 kg (06/11/20 8:05 PM) Dry Weight Obtained Via Patient/family s tated (06/11/20 6:07 PM)
--- OUTSIDE RECORDS SUMMARY | 2023-08-02 17:24 | XMS_ITS | Continuity of Care Document ---
Author Name Unknown Organization [facility] ter Address [address] [place] [address]- Care Team Providers Care Permit Technician Name Role Phone Mike Franks MD Primary Care Physician Encounter [facility] [place] Date(s): 11/22/22 - 11/22/[address] [address]- Encounter Diagnosis Anxiety(Final) - 11/22/22 Alcohol intoxication(Final) - 11/22/22 Alcohol abuse(Final) - 11/22/22 Discharge Disposition: A-D/C Home Attending Physician: Sree Membreno MD Admitting Physician: Sree Membreno MD Referring Physician: Not on Staff, Referring [...] 06/18/22 10:50:00 EDT, Route to Pharmacy Electronically, [facility] 3, Partial fill upon patient request if the prescription is for a schedule II opioid... Start Date: 06/18/22 Status: Ordered gabapentin 100 mg oral capsule 100 mg, 1, capsule, By Mouth, 3 times a day, # 90 capsule, Refills 0, Tot. Refills 0, Maintenance, 06/18/22 11:34:00 EDT, Route to Pharmacy Electronically, [facility], Partial fill uponpatient request if [...] 0 Refills, Maintenance, 07/10/22 15:57:00 EDT, Tablet, [facility] #[id number], Partial fill upon patient [...] Maintenance, 06/18/22 11:48:00 EDT, Tablet, [facility], Partial fill upon patient request if the prescription is for a schedule II opioid drug., 160, cm, 06/18/22 5:09:00 EDT, H... Start Date: 06/18/22 Status: Ordered Problem List Condition Confirmation Course Effective Dates Status Health St atus Informant anxiety Confirmed Active Vital Signs Most recent to oldest [Reference Range]: 1 Oxygen Saturation [94-100 %] 97 % (11/22/22 1:02 AM) Pulse Rate [55-90 bpm] 113 bpm *H* (11/22/22 1:02 AM) Blood Pressure [90-138/55-84 mm Hg] 134/ 96mm Hg (11/22/22 1:02 AM) Respiratory Rate [16-30 br/min] 22 br/mi n (11/22/22 1:02 AM) Temperature [96.8-100.4 DegF] 98.9 DegF (11/22/22 1:02 AM) Mode of Delivery (Oxygen) Room air (11/22/22 1:02 AM) Blood pressure sites Arm, right (11/22/22 1:02 AM) Temperature Route Oral (11/22/22 1:02 AM) Note * Lee WARD, Joanna Wagoner: PERFORM, SIGN, VERIFY Event Display: Patient Education Handout Authored Date: [id number] * Joanna Howard MD: PERFORM Event Display: Patient Education Leaflets Authored Date: [id number] [facility] [place] Substance [place] Resources ?? 151 If you need Substance Abuse Resources: ?? [facility] [phone] ?? [facility] [phone] ?? [facility] [phone] ?? [facility] [phone] ?? [facility] [phone] ?? [facility] [place] [phone] ?? [facility] [phone] ?? [facility] [phone] ?? [facility] [place] [phone] ?? [facility] [phone] ?? [facility] [phone] ?? [facility] [phone] ?? [facility] [phone] ?? [facility] [phone] ?? [facility] [phone] ?? [facility] (13-17 yo) [place] [phone] ?? Rafael [facility]on (Adolescent) [place] [phone] ? Partial Hospitalization ??? Outpatient therapy for adults and families with substance abuse problems [address] [place] [address] ? Support Services ? [facility] Out[facility] - Outpatient therapy /support for recovery / transitional housing &&shelters? [facility] [phone] ? [facility] - women's AA group/street outreach program/health access assistance? [address] [place] [address] ? Alcoholic Anonymous - AA program to maintain sobriety/ Alanon-support for families of alcoholics/Alateen-support for children of same [phone] ? [facility] - recovery support services/sober social Opportunities [address] [place] [address] ? * Lee WARD, Joanna Wagoner: PERFORM Event Display: Patient Education Leaflets Authored Date: [id number] Alcohol Abuse ?? [id number] Alcohol Abuse Alcoholic drinks harm you when you have too many of them. No set number of drinks means too much. Drinking that affects your life or your health is called alcohol abuse. Alcohol abuse can hurt your relationships with others. You may lose friends, a spouse, or even your job. You may be abusing alcohol if any of the following are true for you: ??? Duties at home or with director maternal child suffer because of drinking. ??? Duties at work or in school suffer because of drinking. ??? You have missed work or school because of drinking. ??? You use alcohol while driving or using machinery. ??? You have legal problems such as arrests because of drinking. ??? You keep drinking even though it causes serious problems in your life. Health problems Alcohol abuse causes many health problems.??Sometimes this can happen after only drinking a ???little. ??The effects depend on how much you drink at one time and how often you drink. The effects also depend on how long you drink. For example, months, years, or decades.??Alcohol affects all parts of your body Brain Alcohol affects the central nervous system. It can damage parts of the brain that control your balance and gait, memory, thinking, and emotions. It can cause: ??? Memory loss ??? Blackouts ??? Depression ??? Agitation ??? Sleep problems ??? Seizures These changes may be assisted (permanent). Heart and blood vessels Alcohol can damage heart muscle (cardiomyopathy). This can lead to: ??? Trouble breathing ??? Irregular heartbeat ??? Atrial fibrillation ??? Leg swelling ??? Heart failure Alcohol also makes the blood vessels stiff. This causes high blood pressure. All of these problems raise your risk of having a heart attack or stroke. Liver Alcohol causes fat to build up in the liver. This affects how the liver works. Alcohol also raises the risk for hepatitis. It can cause: ??? Belly (abdominal) pain ??? Belly swelling ??? Loss of appetite ??? Yellowed eyes or skin (jaundice) ??? Bleeding problems ??? Cirrhosis This can make it harder for you to fight off infections. The liver changes keep it from removing toxins in your blood that can cause brain disease (encephalopathy). This condition cause: ??? Confusion ??? Changed level of consciousness ??? Personality changes ??? Memory loss ??? Seizures, coma, and The liver changes can also cause the veins in your esophagus and stomach to become thin and swollenwith blood (varices). This can cause bleeding and vomiting of blood. Pancreas Alcohol can cause swelling (inflammation) of the pancreas (pancreatitis). This can cause belly pain, fever, and diabetes. Immune system Alcohol weakens your immune system. This makes it harder for you to fight infections and colds. It also makes it more likely for you to get pneumonia and tuberculosis. Cancer Alcohol raises the risk for several types of cancer. These include cancer of the mouth, esophagus, pharynx, larynx, liver, and breast. Sexual function Alcohol can lead to sexual problems. ?? Home care These guidelines will help you deal with alcohol abuse: ??? Admit you have a problem with alcohol. ??? Ask for help from your healthcare provider. Also ask for help from trusted family members or close friends. ??? Get help from people trained in dealing with alcohol abuse. This may be one-on-one counseling or group therapy. Or it may be an alcohol treatment program. ??? Join a self-help group for alcohol abuse such as Alcoholics Anonymous. ??? Stay away from people who abuse alcohol or tempt you to drink. ?? Follow-up care Follow up with your healthcare provider, or as advised. Contact these groups to get help: ??? Alcoholics Anonymous (AA) at www.aa.org. Or check the phone book for meetings near you. ??? National Alcohol and Substance Abuse Information Center (NASAIC) at www.addictioncareImmunetics or 896-740-6098 ??? National [place]om on Alcoholism and Drug Dependence (NCADD) at www.ncadd.org or 968-AOM-COSS (782-703-6624) ?? Call 911 Call 911 if any of these occur: ??? Trouble breathing or slow, irregular breathing ??? Chest pain ??? Sudden weakness on one side of your body or sudden trouble speaking ??? Heavy bleeding or vomiting blood ??? Very drowsy or trouble awakening ??? Fainting or loss of consciousness ??? Rapid heart rate ??? Seizure ?? When to seek medical care Call your healthcare provider right away if any of these occur:? Confusion ??? Seeing, hearing, or feeling things that aren???t there (hallucinations) ??? Pain in your upper belly that gets worse ??? Vomiting that continues, vomiting with blood, or black or tarry stools ??? Severe shakiness ?? Last Reviewed Date: 2021 ?? 7823-6354 [employer]. All rights reserved. This information is not intended as a substitute for professional medical care. Always follow your healthcare professional's instructions. ?? Patient Care team information Care Team Personnel Name: Mike Franks MD Position: [facility] Outreach Member Role: PCP Address: Address: [address] [place] [address] Mike Lucille Franks MD [place], [place] - [place] Name: Hiwot Yepez RN Position: [facility] RN Member Role: Primary Care Nurse Name: Gladys Ramirez MD Position: [facility] Physician -Physician Practices Member Role: Lifetime Consulting Physician Name: Lorena Pascual RN Position: [facility] RN Member Role: Primary Care Nurse Name: Debbie Hoffmann RN Position: [facility] RN Member Role: Primary Care Nurse Name: Nevin Rosenberg RN Position: [facility] RN Member Role: Primary Care Nurse Name: Suzette Goodrich RN Position: [facility] RN Member Role: Primary Care Nurse Name: Carla Hdz RN Position: [facility] Hospital Pig[employer] And Lac[employer] Mixer Member Role: Primary Care Nurse Name: Kelsey Murphy RN Position: [facility] RN Member Role: Primary Care Nurse Name: Joseph Murdock RN Position: [facility] RN Member Role: Primary Care Nurse Name: Lien Mckeon Position: [facility] RN Member Role: Primary Care Nurse Name: Joanna Howard MD Position: [facility] Resident Member Role: ED Resident Address: Address: [address] [place] [address]- Name: Claudette Peter RN Position: [facility] ED RN W/OE and Tasks Member Role: Patient Care Provider Name: Sree Membreno MD Position: [facility] Resident Member Role: ED Attending Physician Address: Address: [address] [place] [address] - Name: Marlyn Zepeda Position: [facility] ED TA [facility] Member Role: Patient Care Provider Care Team Related Persons Name: FIDEL BEAUCHAMP Address: home [address] Name: NAYELI ARRIAGA
--- OUTSIDE RECORDS SUMMARY | 2023-08-02 17:24 | XMS_ITS | Continuity of Care Document ---
Author Name Unknown Organization [facility] ter Address [address] [place] [address]- Care Team Providers Care Supervisor Poultry Farm Name Role Phone Mike Franks MD Primary Care Physician [id number] Date[facility]s): 04/14/22 - 04/15/[address] [address]- Encounter Diagnosis Alcohol withdrawal(Final) - 04/14/22 Discharge Disposition: A-D/C Home Attending Physician: Catherine Garcia MD Admitting Physician: Catherine Garcia MD Referring Physician: Not on Staff, Referring MD Allergies, Adverse Reactions, Alerts No Known Allergies Medications acamprosate 333 mg oral delayed release tablet 2 tablet = 666 mg, By Mouth, 3 times a day, # 180 tablet, 0 Refills, Maintenance, 03/29/22 8:53:00 EDT, EC Tablet, [facility], Partial fill upon patient request if the prescription is for a schedule II opioid drug., 160, cm, 03/28/22 3:2... Start Date: 03/29/22 Stop Date: 04/28/22 Status: Ordered folic acid 1 mg oral tablet 1 mg, 1, tablet, By Mouth, Daily, # 30 tablet, Refills 0, Tot. Refills 0, Maintenance, 03/29/22 7:36:00 EDT, Route to Pharmacy Electronically, [facility], Partial fill upon patient request if the prescription is for a schedule II opioid... Start Date: 03/29/22 Stop Date: 04/28/22 Status: Ordered multivitamin Vitamin B Complex oral tablet 1 tablet, By Mouth, Daily, # 30 tablet, 0 Refills, Maintenance, 03/29/22 7:36:00 EDT, Tablet, [facility], Partial fill upon patient [...] 03/29/22 7:36:00 EDT, Route to Pharmacy Electronically, [facility], Partial fill upon patient request if the prescription is for a schedul... Start Date: 03/29/22 Stop Date: 04/28/22 Status: Ordered thiamine 100 mg oral tablet 100 mg, 1, tablet, By Mouth, Daily, for 30 days, # 30 tablet, Refills 0, Tot. Refills 0, Acute 04/28/22 7:36:00 EDT, 03/29/22 7:36:00 EDT, Route to Pharmacy Electronically, [facility], Partial fill upon patient request if the prescriptio... Start Date: 03/29/22 Stop Date: 04/28/22 Status: Ordered Problem List Condition Effective Dates Status Health Status Inform ant anxiety(Confirmed) Active Vital Signs Most recent to oldest [Reference Range]: 1 2 3 Oxygen Saturation [94-100 %] 99 % (04/14/22 11:42 PM) 100 % (04/14/22 7:29 PM) Pulse Rate [55-90 bpm] 91 bpm *H* (04/14/22 11:42 PM) 104 bpm *H* (04/14/22 7:46 PM) 104 bpm *H* (04/14/22 7:29 PM) Blood Pressure [90-138/55-84 mm Hg] 109/62mm Hg (04/14/22 11:42 PM) 124/100mm Hg (04/14/22 7:46 PM) 124/100mm Hg (04/14/22 7:29 PM) Respiratory Rate [16-30 br/min] 16 br/min (04/14/22 11:42 PM) 19 br/min (04/14/22 7:46 PM) 19 br/min (04/14/22 7:29 PM) Temperature [96.8-100.4 DegF] 99.1 DegF (04/14/22 7:29 PM) Mode of Delivery (Oxygen) Room air (04/14/22 11:42 PM) Room air (04/14/22 7:29 PM) Blood pressure sites Arm, right (04/14/22 11:42 PM) Arm, left (04/14/22 7:29 PM) Temperature Route Oral (04/14/22 7:29 PM)
--- OUTSIDE RECORDS SUMMARY | 2023-08-02 17:24 | XMS_ITS | Continuity of Care Document ---
Author Name Unknown Organization [facility] ter Address [address] [place] [address]- Care Team Providers Care Inventory Control Specialist Name Role Phone Mike Franks MD Primary Care Physician [phone] [id number] Date(s): 07/13/21 - 07/14/[address] [address]- Discharge Disposition: A-D/C Walkout Attending Physician: Not [...] 13:19:00 EST, Route to Pharmacy Electronically, [facility], Partial fill upon patient request if the prescription is for a schedule II opioid... Start Date: 01/28/21 Status: Ordered multivitamin Vitamin B Complex oral tablet 1 tablet, By Mouth, Daily, # 30 tablet, 0 Refills, Maintenance, 01/28/21 13:19:00 EST, Tablet, [facility], Partial fill [...] 0 Refills, Maintenance, 02/26/21 4:06:00 EDT, Tablet, [facility]/pharmacy #[id number], Partial fill upon patient request if the prescription is for a schedule II opioid drug.... Start Date: 02/26/21 Status: Ordered Problem List Condition Effective Dates Status Health Status Inform ant anxiety(Confirmed) Active Vital Signs Most recent to oldest [Reference Range]: 1 2 Oxygen Saturation [94-100 %] 100 % (07/13/21 9:58 PM) 100 % (07/13/21 9:46 PM) Pulse Rate [55-90 bpm] 108 bpm *H* (07/13/21 9:58 PM) 127 bpm *H* (07/13/21 9:46 PM) Blood Pressure [90-138/55-84 mm Hg] 135/ 95mm Hg (07/13/21 9:58 PM) Respiratory Rate [16-30 br/min] 18 br/mi n (07/13/21 9:58 PM) 20 br/min (07/13/21 9:46 PM) Temperature [96.8-100.4 DegF] 98.0 DegF (07/13/21 9:58 PM) Mode of Delivery (Oxygen) Room air (07/13/21 9:58 PM) Room air (07/13/21 9:46 PM) Temperature Route Oral (07/13/21 9:58 PM)
--- OUTSIDE RECORDS SUMMARY | 2023-08-02 17:24 | XMS_ITS | Continuity of Care Document ---
Author Name Unknown Organization [facility] ter Address [address] [place] [id number] Care Team Providers Care Strike Warfare/Missile Systems Officer Name Role Phone Mike Franks MD Primary Care Physician [phone] Encounter [facility] [place] Date(s): 09/28/22 - 10/01/[address] [address] Encounter Diagnosis Alcohol intoxication(Final) - 09/28/22 Discharge Disposition: A-D/C AMA Attending Physician: Paris WARD, Brinda Holguin Admitting Physician: Earlene Merino DO Referring Physician: Not on Staff, Referring [...] 06/18/22 10:50:00 EDT, Route to Pharm[facility], Partial fill upon patient request if the prescription is for a schedule II opioid... Start Date: 06/18/22 Status: Ordered gabapentin 100 mg oral capsule 100 mg, 1, capsule, By Mouth, 3 times a day, # 90 capsule, Refills 0, Tot. Refills 0, Maintenance, 06/18/22 11:34:00 EDT, Route to Pharmacy Electronically, [facility], Partial fill uponpatient request if the [...] 0 Refills, Maintenance, 07/10/22 15:57:00 EDT, Tablet, [facility]/pharmacy #[id number], Partial fill upon patient request [...] 0 Refills, Maintenance, 06/18/22 11:48:00 EDT, Tablet, [facility], Partial fill upon patient request if the prescription is for a schedule II opioid drug., 160, cm, 06/18/22 5:09:00 EDT, H... Start Date: 06/18/22 Status: Ordered Problem List Condition Confirmation Course Effective Dates Status Health [facility] Informant anxiety Confirmed Active Results Radiology Reports * Exam Date Time Procedure Performing Provider Status 09/28/22 7:[address] Head/Brain W/O Contrast Glass; Auth (Verified) Notes: (CT Head/Brain W/O Contrast) Reason For Exam: Behavior Problem RESULT: CT Head/Brain W/O Contrast CT Head/Brain W/O Contrast INDICATION: Hx of Present Illness: pt coming from home with c o withdrawal hallucinations, vision changes, sob, and nausea. Pt daily drinker of 1liter of whiskey a day beers, last drink earlier todayprior to arrival. Hx seizures. Pt denies other drug use. Pt denies SI HI; Reason: Behavior Problem;Clinical Question(s): Hematoma TECHNIQUE: Noncontrast head CT using axial technique and reconstructed in axial and coronal planes.Iterative reconstruction techniques are used to optimize dose and image quality. CTDIvol Head: 45.20 mGy, DLP Head: 772 mGy*cm. COMPARISON: 07/14/2022. FINDINGS: Assistant Manager Of Operations view findings, lines and tubes: None. BRAIN AND EXTRA-AXIAL SPACES: No parenchymal [...] tissues are unremarkable. IMPRESSION: No acute intracranial pathology. WSN: [id number] Ordering Physician: Jason Gabriel Dictated By: Germain Angeles MD Dictated Date/Time: 09/28/22 8:18 pm Reviewed By: Germain Angeles MD Signed By: Germain Angeles MD Signed Date/Time: 09/28/22 8:18 pm Transcribed By: JAMES Transcribed Date/Time: 09/28/22 8:16 pm * Exam Date Time Procedure Performing Provider Status 09/28/22 7:[address] Abd/Pelvis W/ IV Contrast Only Jurgen Rose; Auth (Verified) Notes: (CT Abd/Pelvis W/ IV Contrast Only) Reason For Exam: LLQ abdominal pain;Other: RESULT: CT Abd/Pelvis W/ IV Contrast Only CT Abd/Pelvis W/ IV Contrast Only Hx of Present Illness: pt coming from home with c o withdrawal hallucinations, vision changes, sob,and nausea. Pt daily drinker of 1liter of whiskey a day beers, last drink earlier today prior to arrival. Hx seizures. Pt denies other drug use. Pt denies SI HI; Reason: Other:; LLQ abdominal pain; Clinical Question(s): Abscess; TECHNIQUE: Spiral CT through the abdomen and pelvis with IV contrast formatted in 3 planes. 100 cc of Omnipaque 350 was administered intravenously. This study was performed without oral contrast. Weight-based protocol using automatic tube modulation was used to optimize exposure parameters. CTDIvol Body: 13.90 mGy, DLP Body: 732 mGy*cm. COMPARISON: None. FINDINGS: Assistant Manager Of Operations View Findings, Lines and Tubes: None. Visualized Chest: Lung bases are clear. No pleural effusion. The heart is normal in size. No pericardial effusion. Diaphragm: Normal. Liver: Normal. Gallbladder: No CT evidence of gallbladder pathology. Bile ducts: No biliary ductal dilation. Spleen: Normal. Pancreas: Normal. Adrenal glands: Normal. Kidneys and ureters: No hydronephrosis, stones, or suspicious masses. Bladder: Markedly distended bladder with its superior aspect at L4-L5 level. Otherwise normal bladder. Reproductive organs: Unremarkable. Stomach, small bowel, and large bowel: Normal. Appendix: Normal. Peritoneum and retroperitoneum: No ascites or pneumoperitoneum. No omental or mesenteric lesions. Lymph nodes: No enlarged lymph nodes. Blood vessels: Normal. No aneurysm. No evidence of venous thrombosis. Abdominal and pelvic wall: Unremarkable. Bones: No acute abnormality. IMPRESSION: No acute abnormality. Distended bladder is otherwise normal. Please consider decompression with Zavala if the patient is not able to void. WSN: [id number] Ordering Physician: Jason Gabriel Dictated By: Germain Angeles MD Dictated Date/Time: 09/28/22 8:16 pm Reviewed By: Germain Angeles MD Signed By: Germain Angeles MD Signed Date/Time: 09/28/22 8:16 pm Transcribed By: JAMES Transcribed Date/Time: 09/28/22 8:08 pm * Exam Date Time Procedure Performing Provider Status 09/28/22 6:51 PM Chest Portable Vincent Irwin; Bola (Ve rified) Notes: (Chest Portable) Reason For Exam: Shortness of Breath RESULT: Chest Portable Chest Portable Hx of Present Illness: pt coming from home with c o withdrawl hallucinations, vision changes, sob, and nausea. Pt daily drinker of 1liter of whiskey a day beers, last drink earlier today prior to arrival. Hx seizures. Pt denies other drug use. Pt denies SI HI; Reason: Shortness of Breath; Clinical Question(s): CHF COMPARISON: July 14, 2022 FINDINGS: LINES AND TUBES: None. LUNGS AND PLEURA: Clear lungs. Normal pulmonary vascularity. No pleural effusion. No pneumothorax. HEART, MEDIASTINUM AND CAMILA: Heart is normal in size. Normal mediastinal and hilar contour. BONES AND SOFT TISSUES: No acute abnormality. IMPRESSION: No acute abnormality. WSN: [id number] Ordering Physician: Jason Gabriel Dictated By: Abdi Jameson MD Dictated Date/Time: 09/28/22 7:05 pm Reviewed By: Abdi Jameson MD Signed By: Abdi Jameson MD Signed Date/Time: 09/28/22 7:05 pm Transcribed By: JAMES Transcribed Date/Time: 09/28/22 7:04 pm Vital Signs Most recent to oldest [Reference Range]: 1 2 3 Height 160 cm (10/01/22 12:33 PM) 160 cm (10/01/22 5:33 AM) 160 cm (09/30/22 9:35 PM) Weight 66.4 kg (09/30/22 2:00 PM) 66.4 kg (09/30/22 11:00 AM) 66.4 kg (09/30/22 6:30 AM) Oxygen Saturation [94-100 %] 100 % (10/01/22: PM) 99 % (10/01/22: AM) 100 % (09/30/22 9:35 PM) Pulse Rate [55-90 bpm] 90 bpm (10/01/22:36 PM) 104 bpm *H* (10/01/22: PM) 78 bpm (10/01/22:33 AM) Body Mass Index [18.5-24.99 kg/m2] 25.94 kg/m2 *H* (09/30/22 6:30 AM) 25.86 kg/m2 *H* (09/30/22 12:00 AM) 28.55 kg/m2 *H* (09/29/22 2:28 AM) Blood Pressure [90-138/55-84 mm Hg] 131/95mm Hg (10/01/22:36 PM) 141/107mm Hg *H* (10/01/22: PM) 101/76mm Hg (10/01/22:33 AM) Respiratory Rate [16-30 br/min] 18 br/min (10/01/22 12:36 PM) 19 br/min (10/01/22: PM) 17 br/min (10/01/22:33 AM) Temperature [96.8-100.4 DegF] 99 DegF (10/01/22 12:36 PM) 98.3 DegF (10/01/22 12:33 PM) 97.7 DegF (10/01/22:33 AM) Liters per Minute 2 L/min (09/29/22 12:58 AM) Mode of Delivery (Oxygen) Room air (10/01/22 12:33 PM) Room air (10/01/22 5:33 AM) Room air (09/30/22 9:35 PM) Blood pressure sites Arm, right 1 (10/01/22 12:33 PM) Arm, right (10/01/22 5:33 AM) Arm, right (09/30/22 9:35 PM) Temperature Route Oral (10/01/22 12:36 PM) Oral (10/01/22 12:33 PM) Oral (10/01/22 5:33 AM) Dry Weight 73.1 kg (09/29/22 2:28 AM) Weight Obtained Via Bed scale (09/30/22 2:00 PM) Bed scale (09/30/22 11:00 AM) Bed scale (09/30/22 6:30 AM) 1Result Comment: patient was upset and wants to go home helling and angry Admission evaluation note * Leonardo Alves MD: PERFORM, MODIFY, MODIFY, MODIFY, MODIFY, MODIFY, MODIFY Event Display: Admission Note Authored Date: [id number] Patient: ??ALLYSSA BEAUCHAMP ? Age:??31 Years?Sex:??Female?:??1990?? Chief Complaint/Reason for Consultation pt coming from home with c/o withdrawl hallucinations, vision changes, sob, and nausea. Pt daily drinker of 1liter of whiskey a day beers, last drink earlier today prior to arrival. Hx seizures. Pt denies other drug use. Pt denies SI/HI History of Present Illness 31-year-old female with past medical history of severe alcohol use disorder and alcohol withdrawal seizure who presents on September 28 for alcohol withdrawal.?? After multiple doses of phenobarbital patient was finally resting and sleeping when I saw the patient but she was arousable but went back to sleep.?? Thus was unable to obtain full HPI.?? But it seems like patient was in the ED multiple times with similar complaints.?? Most most recently admitted in June for alcohol intoxication.?? Seems like patient presented with chest pain and abdominal pain and last drink was on the day of presentation.?? Reportedly drinking 1 L of hard liquor.?? CT head was done which did not show much CT abdom en and pelvis did not show any abnormality except for distended bladder but otherwise normal.?? Chest x-ray was also normal. ?? Initially she was tachycardic up to 140s and hypertensive up to 160s but was afebrile and saturating well on room air.?? After getting multiple phenobarbital patient's heart rate finally went down tolow 100s and blood pressure normalized.?? Labs were significant for no leukocytosis, normal electrolytes, normal creatinine, mild elevation of AST 37 but otherwise normal liver function and bilirubintroponin was negative x1 alcohol 400. ?? Patient received 4x 260 mg phenobarbital and 130 mg of phenobarbital in the ED.?? She also receivedtotal of 2 L of LR bolus. ?? On my evaluation patient was sleeping but was arousable to voice but then she went back to sleepmost likely from receiving many phenobarbital.?? She was moving all 4 extremities spontaneously. Review of Systems Unable to obtain given patient's current??status Objective Vital Signs?? Temperature: 98.7 DegF (09/28/22 17:46:00) Temperature Route: Oral (09/28/22 17:46:00) Pulse Rate:??106 bpm??High (09/29/22 00:58:00) Respiratory Rate:??15 br/min??Low (09/29/22 00:58:00) Systolic Blood Pressure: 103 mm Hg (09/29/22 00:58:00) Diastolic Blood Pressure: 74 mm Hg (09/29/22 00:58:00) Blood pressure sites: Arm, left (09/29/22 00:58:00) Mean Arterial Pressure: 84 mm Hg (09/29/22 00:58:00) Pulse Pressure: 29 mm Hg (09/29/22 00:58:00) Oxygen Saturation: 97 % (09/29/22 00:58:00) Liters per Minute: 2 L/min (09/29/22 00:58:00) Mode of Delivery (Oxygen): Nasal cannula (09/29/22 00:58:00) Early Warning Score: 1 (09/29/22 00:59:08) ? Intake/Output? No Data Available ? Physical Exam Constitutional: Drowsy??but arousable. Head: Normocephalic.?? Respiratory: Clear to auscultation. No wheezing, rales or rhonchi. Cardiovascular: S1 S2 regular. No murmurs, rubs or gallops. Gastrointestinal: Abdomen soft, non-tender, non-distended. Normal bowel sounds.?? Neurologic:??Arousable to voice??and moving all 4 extremities spontaneously. ??No focal neurological deficits. Skin: No obvious rash noted. Musculoskeletal: No gross deformities. Extremity: Full passive ROM. Assessment/Plan 31-year-old female with past medical history of severe alcohol use disorder and alcohol withdrawal seizure who presents on September 28 for alcohol withdrawal. ?? Toxic metabolic encephalopathy Alcohol withdrawal Severe Alcohol use disorder Hx of alcohol withdrawal seizure Presents with??alcohol withdrawal??with multiple history of??alcohol intoxication/withdrawal Alcohol level??in the 400s CT head unremarkable Received multiple doses of phenobarbital ?? Plan: -[facility] protocol -Ativan 2mg prn for seizure -Seizure precaution -SW and Addiction consult ?? Multiple mood disorders Unclear what exactly these diagnoses are but based on external med list, pt is on multiple psych meds The ones on the list do not represent accurate dosing and frequency, they are all still under invetigation Also on keppra but only 250mg tablet, which can be for mood instead of seizure ?? Plan: - Will hold all psych meds for now, please clarify with patient in the AM ?? Quality Measures Code: Full Diet:??NPO until bedside swallow DVT prophylaxis:??Lovonox ?? Medication documentation based on external medical record, please confirm in the AM (seems like sheis on multiple psych meds) ?? Leonardo Alves MD Internal Medicine PGY-2 Pager #[phone] ?? Pt seen and discussed with attending ??Jd ? Histories Allergies Allergies ?(Active and Proposed Allergies Only) No Known Medication Allergies? (Severity: Unknown severity, Onset: Unknown) NKA? (Severity: Unknown severity, Onset: Unknown) ? Past Medical History/Problem List Active Problems??(1) anxiety ? Past Surgical History Unable to obtain given drowsiness ? Social History Alcohol Details:??Use: Current. ??Frequency: Daily. Substance Abuse Details:??Use: pt refuses to discuss. ? Family History Unable to obtain given drowsiness ? Medications Home Medications Aripiprazole (ARIPiprazole 5 mg oral tablet)?5?Milligram?1?tablet?By Mouth?Daily BusPIRone (busPIRone 7.5 mg oral tablet)?1?tab(s)?7.5?Milligram?By Mouth?3 times a day Clonidine (cloNIDine 0.1 mg oral tablet)?0.1?Milligram?1?tablet?By Mouth?Daily atbedtime Escitalopram (escitalopram 5 mg oral tablet)?1?tab(s)?5?Milligram?By Mouth?Daily Folic Acid (folic acid 1 mg oral tablet)?1?Milligram?1?tablet?By Mouth?Daily Gabapentin (gabapentin 100 mg oral capsule)?100?Milligram?1?capsule?By Mouth?3 times a day levETIRAcetam (levETIRAcetam 250 mg oral tablet)?2?tab(s)?500?Milligram?By Mouth?2 times a day Multivitamin (Multivitamin Tablet)?1?tab(s)?By Mouth?Daily Phenobarbital (PHENobarbital 30 mg oral tablet)?30?Milligram?By Mouth?2 times a day?for 3?Days Prazosin (prazosin 1 mg oral capsule)?1?Milligram?1?capsule?By Mouth?2 times a day Quetiapine (QUEtiapine 100 mg oral tablet)?100?Milligram?1?tablet?By Mouth?3 times a day Topiramate (topiramate 25 mg oral tablet)?2?tab(s)?50?Milligram?By Mouth?Daily Venlafaxine (venlafaxine 75 mg oral tablet)?3?tab(s)?225?Milligram?By Mouth?Daily ? Results Recent Labs BLOOD COUNT & DIFF WBC 5.7 k/mm3 ()?? 09/28/2022 17:34 RBC 5.45 m/mm3 (High)?? 09/28/2022 17:34 Hgb 14.9 Gm/dL ()?? 09/28/2022 17:34 Hct 44.8 % ()?? 09/28/2022 17:34 MCV 82.2 femtoliters ()?? 09/28/2022 17:34 MCH 27.3 pg ()?? 09/28/2022 17:34 MCHC 33.3 g/dL ()?? 09/28/2022 17:34 Platelet Count 262 k/mm3 ()?? 09/28/2022 17:34 RDW-SD 48.1 femtoliters (High)?? 09/28/2022 17:34 MPV 10.4 femtoliters ()?? 09/28/2022 17:34 Nucleated RBC (Automated) 0.0 #/100 WBC'S ()?? 09/28/2022 17:34 Abs. NRBC 0.0 k/mm3 ()?? 09/28/2022 17:34 Abs. Neut 3.4 k/mm3 ()?? 09/28/2022 17:34 Abs. Lymph 2.0 k/mm3 ()?? 09/28/2022 17:34 Abs. White 0.2 k/mm3 (Low)?? 09/28/2022 17:34 Abs. Eo 0.0 k/mm3 ()?? 09/28/2022 17:34 Abs. Baso 0.1 k/mm3 ()?? 09/28/2022 17:34 Neut % 59.6 % ()?? 09/28/2022 17:34 Lymph % 35.4 % ()?? 09/28/2022 17:34 White % 3.7 % (Low)?? 09/28/2022 17:34 Eos % 0.2 % ()?? 09/28/2022 17:34 Baso % 0.9 % ()?? 09/28/2022 17:34 Imm Gran 0.2 % ()?? 09/28/2022 17:34 Abs. Imm Gran 0.0 k/mm3 ()?? 09/28/2022 17:34 ?? CARDIAC Troponin T Quant <0.01 ng/mL ()?? 09/28/2022 17:34 ?? CHEM GENERAL Sodium 142 mmol/L ()?? 09/28/2022 17:34 Potassium 4.1 mmol/L ()?? 09/28/2022 17:34 Chloride 102 mmol/L ()?? 09/28/2022 17:34 Bicarbonate Level 26 mmol/L ()?? 09/28/2022 17:34 Anion Gap 14 ()?? 09/28/2022 17:34 Glucose Level 109 mg/dL (High)?? 09/28/2022 17:34 Glucose, POC 118 mg/dL (High)?? 09/28/2022 17:52 BUN 5 mg/dL (Low)?? 09/28/2022 17:34 Creatinine-Blood 0.7 mg/dL ()?? 09/28/2022 17:34 Estimated GFR Creatinine 111 ML/MIN/1.73 M2 ()?? 09/28/2022 17:34 Calcium 9.4 mg/dL ()?? 09/28/2022 17:34 Magnesium 1.9 mg/dL ()?? 09/28/2022 17:34 Protein, Total 8.4 Gm/dL (High)?? 09/28/2022 17:34 Albumin 5.0 Gm/dL (High)?? 09/28/2022 17:34 AG Ratio 1.5 ()?? 09/28/2022 17:34 Alkaline Phosphatase 97 units/L ()?? 09/28/2022 17:34 Lipase 32 units/L ()?? 09/28/2022 17:34 AST (SGOT) 37 units/L (High)?? 09/28/2022 17:34 ALT (SGPT) 21 units/L ()?? 09/28/2022 17:34 Bilirubin, Total 0.3 mg/dL ()?? 09/28/2022 17:34 ?? ENDOCRINE/TUMOR MARKER Serum Qual NEGATIVE mIU/mL ()?? 09/28/2022 17:34 ?? HEME OTHER Hold Blue Top SPECIMEN DISCARDED AFTER 4 HOURS. ()?? 09/28/2022 17:34 ?? TOXICOLOGY/TDM Ethanol, Serum or Plasma 412 mg/dL (Abnormal)?? 09/28/2022 17:34 ?? VIROLOGY COVID-19 by RT-PCR NEGATIVE ()?? 09/28/2022 17:19 ? * Juanito Miles MD: PERFORM Event Display: Admission Note Authored Date: [id number] ??Attending Attestation: I have seen and evaluated this patient.?? I have discussed the case and its management with the resident and agree with the findings and gail documented in the resident's note.?? I?? will continue to provide care to this patient till 7 AMof the admitting date.? 31-year-old female with a past medical history of alcohol abuse, anxiety, alcohol withdrawal related seizures who did come with a complaint of alcohol withdrawal and hallucinations.?? In the ED patient got a more than?? usual recommended dose of phenobarbitone.?? During my examination patient was sleepy but arousable to the voice?? commands.?? CT of the head ruled out any acute intracranial pathology.?? CT of the abdomen ruled out any acute intracranial pathology.?? Lab work-up showed ethanol level 412.?? We will reexamine the patient again in the morning time when she is going to be more sober.?? We will continue with the CIWA score, thiamine, folic acid and Ativan as needed.?? She got 2 Lof IV fluid in the ED. EKG study * Event Display: ECG 12-Lead Authored Date: Please click on pdf link to open report * Event Display: ECG 12-Lead Authored Date: Ventricular Rate: 126 BPM Atrial Rate: 126 BPM P-R Interval: 146 ms QRS Duration: 78 ms Q-T Interval: 324 ms QTC Calculation(Bazett): 469 ms P [place]: 63 degrees R [place]: -33 degrees T [place]: 52 degrees Sinus tachycardia Left axis deviation Abnormal ECG When compared with ECG of 07-JUL-2022 05:56, No significant change was found Confirmed by DADA MELENDEZ ([id number]) on 10/01/2022 5:16:53 PM [place]: DADA MELENDEZ Note * Paris WARD, Brinda R: PERFORM Event Display: Discharge/Transfer Note Hospital Authored Date: Patient: ??BEAUCHAMP ALLYSSA ? Age:??31 Years?Sex:??Female?:??1990?? Patient Information Discharge Location: Primary Care Physician: Mike Franks MD Admit Date/Time: 09/28/22 21:29 Discharge Disposition Discharge Disposition: Home: No Services??AGAINST MEDICAL ADVICE Discharge Diagnosis Alcohol dependence (F10.20) Alcohol intoxication (F10.929) Alcohol withdrawal syndrome (F10.239) Hypomagnesemia (E83.42) Mood disorder (F39) ?? _ Discharge Medications Aripiprazole (ARIPiprazole 5 mg oral tablet)?5?Milligram?1?tablet?By Mouth?Daily BusPIRone (busPIRone 7.5 mg oral tablet)?1?tab(s)?7.5?Milligram?By Mouth?3 times a day Clonidine (cloNIDine 0.1 mg oral tablet)?0.1?Milligram?1?tablet?By Mouth?Daily atbedtime Escitalopram (escitalopram 5 mg oral tablet)?1?tab(s)?5?Milligram?By Mouth?Daily Folic Acid (folic acid 1 mg oral tablet)?1?Milligram?1?tablet?By Mouth?Daily Gabapentin (gabapentin 100 mg oral capsule)?100?Milligram?1?capsule?By Mouth?3 times a day levETIRAcetam (levETIRAcetam 250 mg oral tablet)?2?tab(s)?500?Milligram?By Mouth?2 times a day Multivitamin (Multivitamin Tablet)?1?tab(s)?By Mouth?Daily Phenobarbital (PHENobarbital 30 mg oral tablet)?30?Milligram?By Mouth?2 times a day?for 3?Days Prazosin (prazosin 1 mg oral capsule)?1?Milligram?1?capsule?By Mouth?2 times a day Quetiapine (QUEtiapine 100 mg oral tablet)?100?Milligram?1?tablet?By Mouth?3 times a day Topiramate (topiramate 25 mg oral tablet)?2?tab(s)?50?Milligram?By Mouth?Daily Venlafaxine (venlafaxine 75 mg oral tablet)?3?tab(s)?225?Milligram?By Mouth?Daily ? Medications Started None Medications Discontinued None Allergies Allergies ?(Active and Proposed Allergies Only) No Known Medication Allergies? (Severity: Unknown severity, Onset: Unknown) NKA? (Severity: Unknown severity, Onset: Unknown) ? Hospital Course 31-year-old female with a past medical history of severe alcohol dependence, alcohol withdrawal seizures who presented with chest pain abdominal pain and visual hallucinations??admitted for management of alcohol withdrawal syndrome. ?? Toxic metabolic encephalopathy ??Alcohol withdrawal ??Severe Alcohol use disorder ??Hx of alcohol withdrawal seizure ??Presented with chest pain abdominal pain and visual hallucinations. ??Last drink was on 09/28. Alcohol level in the 400s upon admission. Patient drinks 1 L of hard liquor daily. ??CT head unremarkable.Patient received a total of??1050 mg of phenobarbital in the ED??and another2 mg of IV Ativan.??Following this??for the next 24 hours she did not require any further dosing ofbenzodiazepines and her symptoms were well controlled. However on day 2 of admission her CIWA scorewas between 13???15 therefore received??3 doses of??2 mg IV Ativan over 24-hour period.??Was seen by ??addiction??medicine??who recommended??starting Campral 666??after resolution of withdrawal symptoms.??Patient was 0pposed to??inpatient??alcohol rehab. On??10/01 patient still continues to have??tremors. Was nauseous and unable to tolerate oral diet.??Unfortunately patient did not want to??stay in the hospital any further??and decided to leave AGAINST MEDICAL ADVICE.??It was clearly explained to her that she is at a risk of further withdrawal symptoms and possibly??withdrawal seizures given her history.??She??understood the risks involved with leaving the hospital??and the adverse outcomes that may result??from it.??She??has??complete capacity??to understand the gravity of her??condition and the consequences related to??leaving AGAINST MEDICAL ADVICE. ?? Had??electrolyte imbalances including??hypomagnesemia for which she received IV and oral magnesium. Home medications of clonidine??and Zoloft were continued. ? Objective Measurements?? Height: 160 cm (10/01/22) Weight: 66.4 kg (09/30/22) Dry Weight: 73.1 kg (09/29/22) Body Mass Index:??25.94 kg/m2??High (09/30/22) ? Vital Signs?? Temperature: 99 DegF (10/01/22 12:36:00) Temperature Route: Oral (10/01/22 12:36:00) Pulse Rate: 90 bpm (10/01/22 12:36:00) Respiratory Rate: 18 br/min (10/01/22 12:36:00) Systolic Blood Pressure: 131 mm Hg (10/01/22 12:36:00) Diastolic Blood Pressure:??95 mm Hg??High (10/01/22 12:36:00) Blood pressure sites: Arm, right (10/01/22 12:33:00) Mean Arterial Pressure: 118 mm Hg (10/01/22 12:33:00) Pulse Pressure: 34 mm Hg (10/01/22 12:33:00) Oxygen Saturation: 100 % (10/01/22 12:33:00) Mode of Delivery (Oxygen): Room air (10/01/22 12:33:00) Early Warning Score: 0 (10/01/22 13:24:10) ? . Physical Exam Constitutional: Alert, in no acute distress.?? Seated up in bed answering questions coherently.??During my interview was able to get out of bed and walk without difficulty. ?? Eyes: Pupils are equal, round and reactive to light. Extraocular muscles intact. No pallor or scleral icterus. No nystagmus ?? Ear, Nose and Throat: mucous membranes moist. Ears and nose - no obvious deformities. Trachea midline. ?? Neck: Supple, Full range of motion.No JVD or bruits. Respiratory:??Clear to auscultation. No wheezing or rhonchi.??No use of accessory muscles. No tactile fremitus.?? Cardiovascular:??PMI not visible. S1 S2 regular. No murmurs, rubs or gallops. Gastrointestinal:??Abdomen soft, non-tender, non-distended. Normal bowel sounds. No pulsatile mass.No hepatosplenomegaly. Genitourinary:??No costovertebral angle tenderness. Extremities: No lower extremity pitting edema. No cyanosis or clubbing. Neurologic:??AAOx3, no focal deficits.?? Slight??tremors in both extremities. Skin:??No rash.?? Psychiatric: Normal mood and affect Pending Results Add On Lab Order ordered on 09/29/2022 Add On Lab Order ordered on 09/29/2022 Add On Lab Order ordered on 09/29/2022 COVID-19 (2019 Novel Coronavirus) PCR ordered on 09/29/2022 Follow-Up Appointments Added Follow Up ?Time Frame ?Comments Golden WARD, Mike Post Discharge Care Diet: Regular Diet Activity: As tolerated Code Status: Full code Discharge ?Discharge AMA, ??10/01/22 14:21:00 EST Home Health Face to Face ^[facility] Results Discharge Labs BLOOD COUNT & DIFF WBC 4.3 k/mm3 ()?? 10/01/2022 01:02 RBC 4.79 m/mm3 ()?? 10/01/2022 01:02 Hgb 12.8 Gm/dL ()?? 10/01/2022 01:02 Hct 38.7 % ()?? 10/01/2022 01:02 MCV 80.8 femtoliters ()?? 10/01/2022 01:02 MCH 26.7 pg (Low)?? 10/01/2022 01:02 MCHC 33.1 g/dL ()?? 10/01/2022 01:02 Platelet Count 152 k/mm3 ()?? 10/01/2022 01:02 RDW-SD 45.1 femtoliters ()?? 10/01/2022 01:02 MPV 10.9 femtoliters ()?? 10/01/2022 01:02 Nucleated RBC (Automated) 0.0 #/100 WBC'S ()?? 10/01/2022 01:02 Abs. NRBC 0.0 k/mm3 ()?? 10/01/2022 01:02 Abs. Neut 3.4 k/mm3 ()?? 09/28/2022 17:34 Abs. Lymph 2.0 k/mm3 ()?? 09/28/2022 17:34 Abs. White 0.2 k/mm3 (Low)?? 09/28/2022 17:34 Abs. Eo 0.0 k/mm3 ()?? 09/28/2022 17:34 Abs. Baso 0.1 k/mm3 ()?? 09/28/2022 17:34 Neut % 59.6 % ()?? 09/28/2022 17:34 Lymph % 35.4 % ()?? 09/28/2022 17:34 White % 3.7 % (Low)?? 09/28/2022 17:34 Eos % 0.2 % ()?? 09/28/2022 17:34 Baso % 0.9 % ()?? 09/28/2022 17:34 Imm Gran 0.2 % ()?? 09/28/2022 17:34 Abs. Imm Gran 0.0 k/mm3 ()?? 09/28/2022 17:34 ?? CARDIAC Troponin T Quant <0.01 ng/mL ()?? 09/28/2022 17:34 ? CHEM GENERAL Sodium 133 mmol/L ()?? 10/01/2022 01:02 Potassium 4.1 mmol/L ()?? 10/01/2022 01:02 Chloride 95 mmol/L (Low)?? 10/01/2022 01:02 Bicarbonate Level 26 mmol/L ()?? 10/01/2022 01:02 Anion Gap 12 ()?? 10/01/2022 01:02 Glucose Level 82 mg/dL ()?? 10/01/2022 01:02 Glucose, POC 118 mg/dL (High)?? 09/28/2022 17:52 BUN 5 mg/dL (Low)?? 10/01/2022 01:02 Creatinine-Blood 0.6 mg/dL ()?? 10/01/2022 01:02 Estimated GFR Creatinine 123 ML/MIN/1.73 M2 ()?? 10/01/2022 01:02 Calcium 9.4 mg/dL ()?? 10/01/2022 01:02 Calcium, Ionized pH Corrected 1.13 mmol/L ()?? 09/29/2022 08:54 Phosphorus 4.0 mg/dL ()?? 10/01/2022 01:02 Magnesium 1.7 mg/dL ()?? 10/01/2022 01:02 Protein, Total 8.4 Gm/dL (High)?? 09/28/2022 17:34 Albumin 5.0 Gm/dL (High)?? 09/28/2022 17:34 AG Ratio 1.5 ()?? 09/28/2022 17:34 Alkaline Phosphatase 97 units/L ()?? 09/28/2022 17:34 Lipase 32 units/L ()?? 09/28/2022 17:34 AST (SGOT) 37 units/L (High)?? 09/28/2022 17:34 ALT (SGPT) 21 units/L ()?? 09/28/2022 17:34 Bilirubin, Total 0.3 mg/dL ()?? 09/28/2022 17:34 ?? ENDOCRINE/TUMOR MARKER Serum Qual NEGATIVE mIU/mL ()?? 09/28/2022 17:34 ? HEME OTHER Hold Blue Top SPECIMEN DISCARDED AFTER 4 HOURS. ()?? 09/28/2022 17:34 ? TOXICOLOGY/TDM Ethanol, Serum or Plasma 412 mg/dL (Abnormal)?? 09/28/2022 17:34 ? VIROLOGY COVID-19 by RT-PCR NEGATIVE ()?? 09/28/2022 17:19 ? 33??minutes spent on discharge * oJseph Murdock RN: PERFORM Event Display: Discharge/Transfer Note Hospital Authored Date: [id number] Nursing Discharge Note Entered On: 10/01/2022 13:09 EST Performed On: 10/01/2022 13:05 EST by Joseph Murdock RN Nursing Discharge Note 2 Discharge Time : 10/01/2022 13:05 EST Discharge Level of Care at Discharge : Left Against Medical Advice AMA Form Signed : Yes Patient Left Unit Via : Ambulatory Patient Accompanied Off Unit with : Other: self, left AMA DC Instructions Provided & Signed by Pt : No Patient Understands D/C Instructions : No Patient Instructions Discharge Signed : No Discharge Comments : pt left AMA by self Did Pt have Specialty Bed or Wound Vac : No Joseph Murdock RN - 10/01/2022 13:05 EST * Event Display: Cardiac Rhythm Strips Authored Date: Hospital Progress note * Joseph Murdock RN: PERFORM, SIGN, VERIFY Event Display: Progress Note Hospital Authored Date: Patient: ALLYSSA BEAUCHAMP Age: 31 years Sex: Female : 1990 Associated Diagnoses: None Author: Joseph Murdock RN Findings Narrative/Incidental 47 yo f cao4 cc etoh w/draw, scored 4 on ciwa. pt left AMA after speaking with MD who was aware, and agreed pt was competent to leave AMA. pt signed AMA form and given pt education regarding seizuresand etoh w/drawl. [place] [facility] [place] in lowest locked position and call carranza in reach. . Discharge Information Case Management Discharge Plan : Case Management Discharge Plan Data 10/01/2022 13:05 EST Discharge Level of Care at Discharge Left Against Medical Advice * Paris WARD, Brinda Holguin: PERFORM Event Display: Progress Note Hospital Authored Date: Patient: ??ALLYSSA BEAUCHAMP ? Age:??31 Years?Sex:??Female?:??1990?? Subjective No acute events overnight. Patient has used a total of??6 mg IV Ativan??over the past 24 hours. CIWA score??between 13 and 15.?? Did not score high enough last night??to receive Ativan. Continues to have nausea and anxiety. Has not been able to??tolerate??an oral diet due to the??nausea. Has been out of bed without difficulty. Review of Systems Review of systems is negative except for stated above Objective Measurements?? Height: 160 cm (10/01/22) Weight: 66.4 kg (09/30/22) Dry Weight: 73.1 kg (09/29/22) Body Mass Index:??25.94 kg/m2??High (09/30/22) ? Vital Signs?? Temperature: 97.7 DegF (10/01/22 05:33:00) Temperature Route: Oral (10/01/22 05:33:00) Pulse Rate: 78 bpm (10/01/22 05:33:00) Respiratory Rate: 17 br/min (10/01/22 05:33:00) Systolic Blood Pressure: 101 mm Hg (10/01/22 05:33:00) Diastolic Blood Pressure: 76 mm Hg (10/01/22 05:33:00) Blood pressure sites: Arm, right (10/01/22 05:33:00) Mean Arterial Pressure: 84 mm Hg (10/01/22 05:33:00) Pulse Pressure: 25 mm Hg (10/01/22 05:33:00) Oxygen Saturation: 99 % (10/01/22 05:33:00) Mode of Delivery (Oxygen): Room air (10/01/22 05:33:00) Early Warning Score: 3 (10/01/22 05:38:12) ? Intake/Output? 09/28 21:29 10/01 07:00 09/30 07:00 09/29 07:00 09/28 07:00 ?? 10/01 10:38 10/01 10:38 10/01 06:59 09/30 06:59 09/29 06:59 Intake ? 50 ?0 ?0 ? 50 ?0 Output ?3 ?0 ?0 ?3 ?0 Net Total ? 47 ?0 ?0 ? 47 ?0 ? Urine Count ?0 ?0 ?0 ?0 ?0 ? Physical Exam Constitutional: Alert, in no acute distress.?? Seated up in bed answering questions coherently.??During my interview was able to get out of bed and walk without difficulty. ?? Eyes: Pupils are equal, round and reactive to light. Extraocular muscles intact. No pallor or scleral icterus. No nystagmus ?? Ear, Nose and Throat: mucous membranes moist. Ears and nose - no obvious deformities. Trachea midline. ?? Neck: Supple, Full range of motion.No JVD or bruits. Respiratory:??Clear to auscultation. No wheezing or rhonchi.??No use of accessory muscles. No tactile fremitus.?? Cardiovascular:??PMI not visible. S1 S2 regular. No murmurs, rubs or gallops. Gastrointestinal:??Abdomen soft, non-tender, non-distended. Normal bowel sounds. No pulsatile mass.No hepatosplenomegaly. Genitourinary:??No costovertebral angle tenderness. Extremities: No lower extremity pitting edema. No cyanosis or clubbing. Neurologic:??AAOx3, no focal deficits.?? Slight??tremors in both extremities. Skin:??No rash.?? Psychiatric: Normal mood and affect _ Inpatient Medications Medications (15) Active SCHEDULED: (8) Clonidine 0.1 mg Tablet (cloNIDine 0.1 mg oral tablet) ??0.1 mg, By Mouth, Daily at bedtime Enoxaparin 40 mg Inj (Enoxaparin Inj) ??40 mg 0.4 mL, Subcutaneous Injection, Daily Escitalopram 10 mg Tablet (escitalopram 10 mg oral tablet) ??5 mg, By Mouth, Daily Folic Acid 1 mg Tablet (Folic Acid Tablet) ??1 mg, By Mouth, Daily Magnesium Oxide 400 mg Tablet (magnesium oxide 400 mg oral tablet) ??400 mg, By Mouth, 2 times a day Multivitamin Tablet ??1 tablet, By Mouth, Daily Pyridoxine 50 mg Tablet (Pyridoxine Tablet) ??50 mg, By Mouth, Daily Thiamine 100 mg Tablet (thiamine 100 mg oral tablet) ??100 mg, By Mouth, Daily CONTINUOUS: (0) PRN: (7) HydrOXYzine HCL 10mg Tablet (HydrOXYzine HCL Tablet) ??20 mg, By Mouth, 2 times a day Lorazepam 2 mg Inj Syringe (Ativan Inj) ??1 mg, IV Push Slowly, Every 2 hours Lorazepam 2 mg Inj Syringe (Ativan Inj) ??2 mg, IV Push Slowly, Every 2 hours Lorazepam 2 mg Inj Syringe (Ativan Inj) ??2 mg, IV Push Slowly, Every hour Lorazepam 2 mg Inj Syringe (Ativan Inj) ??2 mg, IV Push Slowly, Once Ondansetron 2mg/mL Inj (2mL Vial) (Zofran Inj) ??4 mg, IV Push, Every 6 hours Quetiapine 100 mg Tablet (SEROquel 100 mg oral tablet) ??100 mg, By Mouth, Daily at bedtime ? Results ? LFT?? No qualifying data available. ?? Microbiology ?? COVID-19 (Novel Coronavirus), Rapid PCR?? Completed?? Source: Nasal Body Site: Nose Collected Dt/Tm: 09/28/2022 17:12 Last Updated Dt/Tm: 09/28/2022 19:32 ? Uric/LDH?? No qualifying data available. ? Diagnoses Alcohol dependence ??(F10.20) Alcohol intoxication ??(F10.929) Alcohol withdrawal syndrome ??(F10.239) Hypomagnesemia ??(E83.42) Mood disorder ??(F39) Assessment/Plan 31-year-old female with a past medical history of severe alcohol dependence, alcohol withdrawal seizures who presented with chest pain abdominal pain and visual hallucinations currently being managedfor alcohol withdrawal syndrome. ?? Toxic metabolic encephalopathy Alcohol withdrawal Severe Alcohol use disorder Hx of alcohol withdrawal seizure Presented with??chest pain abdominal pain and visual hallucinations. Last drink was on 09/28. Alcohol level??in the 400s??upon admission. ??Patient drinks 1 L of hard liquor daily. CT head unremarkable Received received in total??1050??mg of phenobarbital. ??And??1 dose of??lorazepam in the ED. Received a total of 6 mg IV Ativan??over the past 24 hours however overnight at this morning CIWA score??below the threshold. Patient has been in??alcohol rehab??before.?? She stated that??since her admission in June she was??in a 28-day program??at her inpatient alcohol rehab??facility.?? However??as soon as her release home she started drinking.?? She is unable to tell me??regarding any triggering factors at home.?? At this time she is motivated to quit drinking however??is opposed to??being readmitted at a??inpatient alcohol rehab facility. Addiction medicine had made recommendations with regard to using diazepam for continued withdrawal symptoms and Haldol for hallucinations and Depakote for persistent agitation.?? However at this timedoes not meet this criteria. Will keep on as needed Ativan. Campral to be started tomorrow if no signs of withdrawal. ?Continue with??vitamins??thiamine folic acid and pyridoxine ?? Multiple mood disorders Continue with Zoloft and Seroquel at night as needed. ??Clonidine at bedtime. She??complains of anxiety???we will give a trial of hydroxyzine. ?? Electrolyte imbalances Magnesium level is still borderline. Continue with magnesium oxide 400 mg twice daily. ?? Quality Measures Code: Full Diet:??Regular diet DVT prophylaxis:??Lovonox Anticipated disposition:??Discharge home within the next 24 hours. ? * Mario WARD, Lary: PERFORM Event Display: Progress Note Hospital Authored Date: Patient: ??ALLYSSA BEAUCHAMP ? Age:??31 Years?Sex:??Female?:??1990?? Subjective No acute overnight events Patient seen and evaluated bedside Complains of nausea and anxiety CIWA??15 this a.m., got Ativan States that she had seizures in the past with withdrawals Review of Systems Negative except as noted above Objective Vital Signs?? Temperature: 98.2 DegF (11/11/22 11:00:00) Temperature Route: Oral (09/30/22 11:00:00) Pulse Rate: 78 bpm (09/30/22 11:00:00) Heart Rate Monitored:??92 bpm??High (09/29/22 19:00:00) Respiratory Rate: 18 br/min (09/30/22 11:00:00) Systolic Blood Pressure: 120 mm Hg (09/30/22 11:00:00) Diastolic Blood Pressure:??86 mm Hg??High (09/30/22 11:00:00) Blood pressure sites: Arm, right (09/30/22 11:00:00) Mean Arterial Pressure: 101 mm Hg (09/30/22 06:30:00) Pulse Pressure: 34 mm Hg (09/30/22 11:00:00) Oxygen Saturation: 100 % (09/30/22 11:00:00) Mode of Delivery (Oxygen): Room air (09/30/22 11:00:00) Early Warning Score: 4 (09/30/22::59) ? Intake/Output? 09/28 21:29 09/30 07:00 09/29 07:00 09/28 07:00 09/27 07:00 ?? 09/30 14:21 09/30 14:21 09/30 06:59 09/29 06:59 09/28 06:59 Intake ? 50 ?0 ? 50 ?0 ?0 Output ?3 ?0 ?3 ?0 ?0 Net Total ? 47 ?0 ? 47 ?0 ?0 ? Urine Count ?0 ?0 ?0 ?0 ?0 ? Physical Exam Constitutional: Alert, in no acute distress.?? Respiratory:??Clear to auscultation. No wheezing or rhonchi.?? Cardiovascular:??S1 S2 regular. No murmurs, rubs or gallops. Gastrointestinal:??Abdomen soft, non-tender, non-distended Results Recent Labs BLOOD COUNT & DIFF WBC 3.7 k/mm3 (Low)?? 09/30/2022 01:21 RBC 4.55 m/mm3 ()?? 09/30/2022 01:21 Hgb 12.1 Gm/dL ()?? 09/30/2022 01:21 Hct 37.1 % ()?? 09/30/2022 01:21 MCV 81.5 femtoliters ()?? 09/30/2022 01:21 MCH 26.6 pg (Low)?? 09/30/2022 01:21 MCHC 32.6 g/dL (Low)?? 09/30/2022 01:21 Platelet Count 159 k/mm3 ()?? 09/30/2022 01:21 RDW-SD 45.1 femtoliters ()?? 09/30/2022 01:21 MPV 11.1 femtoliters ()?? 09/30/2022 01:21 Nucleated RBC (Automated) 0.0 #/100 WBC'S ()?? 09/30/2022 01:21 Abs. NRBC 0.0 k/mm3 ()?? 09/30/2022 01:21 ?? CHEM GENERAL Sodium 134 mmol/L ()?? 09/30/2022 01:21 Potassium 3.7 mmol/L ()?? 09/30/2022 01:21 Chloride 94 mmol/L (Low)?? 09/30/2022 01:21 Bicarbonate Level 29 mmol/L ()?? 09/30/2022 01:21 Anion Gap 11 ()?? 09/30/2022 01:21 Glucose Level 74 mg/dL ()?? 09/29/2022 02:49 BUN 5 mg/dL (Low)?? 09/30/2022 01:21 Creatinine-Blood 0.6 mg/dL ()?? 09/30/2022 01:21 Estimated GFR Creatinine 124 ML/MIN/1.73 M2 ()?? 09/30/2022 01:21 Calcium 8.0 mg/dL (Low)?? 09/29/2022 02:49 Calcium, Ionized pH Corrected 1.13 mmol/L ()?? 09/29/2022 08:54 Phosphorus 3.9 mg/dL ()?? 09/29/2022 02:49 Magnesium 1.7 mg/dL ()?? 09/30/2022 01:21 ? Assessment/Plan ??31-year-old female with a past medical history of severe alcohol dependence, alcohol withdrawal seizures who presented with chest pain abdominal pain and visual hallucinations currently being managed for alcohol withdrawal syndrome. ?? Toxic metabolic encephalopathy Alcohol withdrawal Severe Alcohol use disorder Hx of alcohol withdrawal seizure Presented with??chest pain, abdominal pain and visual hallucinations. Last drink was on the day of presentation. Alcohol level??in the 400s??upon admission. ??Patient drinks 1 L of hard liquor daily. CT head unremarkable Received received in total??1050??mg of phenobarbital. ??And??1 dose of??lorazepam in the ED. Patient has been in??alcohol rehab??before.?? She stated that??since her admission in June she was??in a 28-day program??at her inpatient alcohol rehab??facility.?? However??as soon as her release home she started drinking.?? She is unable to tell me??regarding any triggering factors at home.?? At this time she is motivated to quit drinking however??is opposed to??being readmitted at a??inpatient alcohol rehab facility. Plan: -CIWA protocol???continue to monitor closely,??has h/o sz with withdrawal in the past and is a heavy drinker -Ativan per CIWA, Seizure precaution -SW and Addiction consulted-appreciate recs???If withdrawal escalates,??can try diazepam??5 to 10 mg p.o./IV 3 times daily scheduled??and taper as tolerated -If hallucinations/agitation???can do Haldol 2.5 IV/p.o. twice daily as needed (but Haldol can lower seizure threshold, so use cautiously) -For persistent agitation,??can schedule Depakote 500 mg IV twice daily and taper as tolerated -To start Campral 6 6 6 mg p.o. 3 times daily??once withdrawal is complete??and to continue on DC -She declined naltrexone -Continue with??vitamins??thiamine folic acid and pyridoxine ?? Multiple mood disorders According to her external med list she is on multiple psychiatric medications. However??patient states that she is currently only taking??Zoloft??clonidine??and Seroquel as needed at night. ?? Will continue these medications for now. Patient will need??a follow-up with her psychiatry??team??for reevaluation??as outpatient. ?? Electrolyte imbalances CTM and replete as needed ?? Quality Measures Code: Full Diet:??Start on a regular diet DVT prophylaxis:??Lovenox OMN:??to monitor for withdrawal ? Portable XR Chest Views * [facility] , CIS S: TRANSCRIBE Abdi Jameson MD: VERIFY Event Display: Result: Authored Date: Chest Portable Hx of Present Illness: pt coming from home with c o withdrawl hallucinations, vision changes, sob, and nausea. Pt daily drinker of 1liter of whiskey a day beers, last drink earlier today prior to arrival. Hx seizures. Pt denies other drug use. Pt denies SI HI; Reason: Shortness of Breath; Clinical Question(s): CHF COMPARISON: July 14, 2022 FINDINGS: LINES AND TUBES: None. LUNGS AND PLEURA: Clear lungs. Normal pulmonary vascularity. No pleural effusion. No pneumothorax. HEART, MEDIASTINUM AND CAMILA: Heart is normal in size. Normal mediastinal and hilar contour. BONES AND SOFT TISSUES: No acute abnormality. IMPRESSION: No acute abnormality. WSN: [id number] Ordering Physician: Jason Gabriel Dictated By: Abdi Jameson MD Dictated Date/Time: 09/28/22 7:05 pm Reviewed By: Abdi Jameson MD Signed By: Abdi Jameson MD Signed Date/Time: 09/28/22 7:05 pm Transcribed By: JAMES Transcribed Date/Time: 09/28/22 7:[address] Abdomen and Pelvis W contrast IV * [facility] , CIS S: TRANSCRIBE Germain Angeles MD: VERIFY Event Display: Result: Authored Date: [id number] CT Abd/Pelvis W/ IV Contrast Only Hx of Present Illness: pt coming from home with c o withdrawal hallucinations, vision changes, sob,and nausea. Pt daily drinker of 1liter of whiskey a day beers, last drink earlier today prior to arrival. Hx seizures. Pt denies other drug use. Pt denies SI HI; Reason: Other:; LLQ abdominal pain; Clinical Question(s): Abscess; TECHNIQUE: Spiral CT through the abdomen and pelvis with IV contrast formatted in 3 planes. 100 cc of Omnipaque 350 was administered intravenously. This study was performed without oral contrast. Weight-based protocol using automatic tube modulation was used to optimize exposure parameters. CTDIvol Body: 13.90 mGy, DLP Body: 732 mGy*cm. COMPARISON: None. FINDINGS: Assistant Manager Of Operations View Findings, Lines and Tubes: None. Visualized Chest: Lung bases are clear. No pleural effusion. The heart is normal in size. No pericardial effusion. Diaphragm: Normal. Liver: Normal. Gallbladder: No CT evidence of gallbladder pathology. Bile ducts: No biliary ductal dilation. Spleen: Normal. Pancreas: Normal. Adrenal glands: Normal. Kidneys and ureters: No hydronephrosis, stones, or suspicious masses. Bladder: Markedly distended bladder with its superior aspect at L4-L5 level. Otherwise normal bladder. Reproductive organs: Unremarkable. Stomach, small bowel, and large bowel: Normal. Appendix: Normal. Peritoneum and retroperitoneum: No ascites or pneumoperitoneum. No omental or mesenteric lesions. Lymph nodes: No enlarged lymph nodes. Blood vessels: Normal. No aneurysm. No evidence of venous thrombosis. Abdominal and pelvic wall: Unremarkable. Bones: No acute abnormality. IMPRESSION: No acute abnormality. Distended bladder is otherwise normal. Please consider decompression with Zavala if the patient is not able to void. WSN: [id number] Ordering Physician: Jason Gabriel Dictated By: Germain Angeles MD Dictated Date/Time: 09/28/22 8:16 pm Reviewed By: Germain Angeles MD Signed By: Germain Angeles MD Signed Date/Time: 09/28/22 8:16 pm Transcribed By: JAMES Transcribed Date/Time: 09/28/22 8:[address] Head WO contrast * [facility] , CIS S: TRANSCRIBE Germain Angeles MD: VERIFY Event Display: Result: Authored Date: [id number] CT Head/Brain W/O Contrast INDICATION: Hx of Present Illness: pt coming from home with c o withdrawal hallucinations, vision changes, sob, and nausea. Pt daily drinker of 1liter of whiskey a day beers, last drink earlier todayprior to arrival. Hx seizures. Pt denies other drug use. Pt denies SI HI; Reason: Behavior Problem;Clinical Question(s): Hematoma TECHNIQUE: Noncontrast head CT using axial technique and reconstructed in axial and coronal planes.Iterative reconstruction techniques are used to optimize dose and image quality. CTDIvol Head: 45.20 mGy, DLP Head: 772 mGy*cm. COMPARISON: 07/14/2022. FINDINGS: Assistant Manager Of Operations view findings, lines and tubes: None. BRAIN AND EXTRA-AXIAL SPACES: No parenchymal [...] tissues are unremarkable. IMPRESSION: No acute intracranial pathology. WSN: [id number] Ordering Physician: Jason Gabriel Dictated By: Germain Angeles MD Dictated Date/Time: 09/28/22 8:18 pm Reviewed By: Germain Angeles MD Signed By: Germain Angeles MD Signed Date/Time: 09/28/22 8:18 pm Transcribed By: JAMES Transcribed Date/Time: 09/28/22 8:16 pm Patient Care team information Care Team Personnel Name: Danyell Escobedo RN Position: S RN Member Role: Primary Care Nurse Name: Mike Franks MD Position: [facility] Outreach Member Role: PCP Address: Address: [address] [place] [address] [place] [address]- Name: Hiwot Yepez RN Position: [facility] RN Member Role: Primary Care Nurse Name: Gladys Ramirez MD Position: [facility] Physician -Physician Practices Member Role: [employer] Consulting Physician Name: Lorena Pascual RN Position: [facility] RN Member Role: Primary Care Nurse Name: Debbie Hoffmann RN Position: [facility] RN Member Role: Primary Care Nurse Name: Nevin Rosenberg RN Position: [facility] RN Member Role: Primary Care Nurse Name: Suzette Goodrich RN Position: [facility] RN Member Role: Primary Care Nurse Name: Carla Hdz RN Position: [facility] [employer] Member Role: Primary Care Nurse Name: Kelsey Murphy RN Position: [facility] RN Member Role: Primary Care Nurse Name: Joseph Murdock RN Position: [facility] RN Member Role: Primary Care Nurse Name: Lien Mckeon Position: [facility] RN Member Role: Primary Care Nurse Name: Rocío FOSTER Attending Position: [facility] ED Medicine MD Name: Mary Jane Hartley Position: [facility] ED TA [facility] Member Role: Patient Care Provider Name: Dominga Jordan RN Position: [facility] ED RN W/OE and Tasks Member Role: Patient Care Provider Care Team Related Persons Name: FIDEL BEAUCHAMP Address: home [address] [address] Name: NAYELI ARRIAGA
--- NOTE | 2023-08-02 17:50 | PC.NURSE ---
appears to be sleeping on stretcher in [place]. respirations even and unlabored. changed into hospital attire, belongings at bedside.
--- NOTE | 2023-08-02 18:20 | ED_ITS ---
HPI - Alcohol General Chief Complaint: ETOH/Substance Use Stated Complaint: ETOH / SUBSTANCE ABUSE Time Seen by Provider: 08/02/23 17:00 Source: patient and EMS Mode of arrival: EMS Limitations: no limitations History of Present Illness HPI narrative: Patient alcoholic been here multiple times came from [facility] as patient went there for detox . Patient too intoxicated refusing to answer requesting to go home nauseated no signs of any head injury Related Data Home Medications Medication Instructions Recorded Confirmed buspirone 15 mg tablet 15 mg PO BID 06/02/23 06/02/23 folic acid 1 mg tablet 1 mg PO DAILY 06/02/23 06/02/23 hydroxyzine HCl 50 mg tablet 50 mg PO BID PRN Anxiety 06/02/23 06/02/23 melatonin 3 mg tablet 3 mg PO BEDTIME 06/02/23 06/02/23 sertraline 100 mg tablet 100 mg PO DAILY 06/02/23 06/02/23 trazodone 50 mg tablet 50 mg PO BEDTIME 06/02/23 06/02/23 Allergies Allergy/AdvReac Type Severity Reaction Status Date / Time No Known Allergies Allergy Verified 07/03/22 22:59 [No Known Allergies*] Review of Systems Review of Systems: Yes all other systems are reviewed and are negative PMFSH Past Medical History Medical History Chronic post-traumatic stress disorder (PTSD) MDD (major depressive disorder), recurrent episode, severe Bulimia SANDY (generalized anxiety disorder) Panic attack MDD (major depressive disorder), recurrent episode, moderate Alcohol use disorder Alcohol withdrawal delirium Alcohol abuse with withdrawal delirium Depression Anxiety Alcohol withdrawal seizure Alcoholism Family History Family History Brother Substance abuse Social History Social History Household Members: Family Housing: Apartment Do you presently have visiting nurse or other home services: No Alcohol intake: current Alcohol intake frequency: former alcohol drinker Alcohol type: hard liquor Patient Tobacco Use Status: Never used Tobacco e-Cigarette/Vaping Use: Never Used Second Hand Smoke Exposure: No Substance Use Type: Marijuana Advance Directives: No Advance Directives Information Provided: No service: No Current occupational status: unemployed Sexual orientation: Straight/Heterosexual Physical Exam ED Vital Signs: Vital Signs - 24 hr 08/02/23 17:03 08/02/23 17:04 Temperature 97.3 F 97.3 F Pulse Rate 104 H 104 H Respiratory Rate 17 18 Blood Pressure 134/94 H 134/94 H Pulse Oximetry 97 97 Oxygen Delivery Method Room Air Room Air BMI result Body Mass Index 27.5 Appearance: Alert. And awake No acute distress. Intoxicated Eyes: PERRLA, No Nystagmus ENT: Pharynx normal. Oral Mucosa moist Neck: Normal inspection. Neck supple. CVS: Normal heart rate and rhythm. Pulses normal. Respiratory: No respiratory distress. Equal air entry bilateral, no wheezing/rales/rhonchi Abdomen: Soft and nontender. Bowel sounds are present, no mass palpable, no CVA tenderness Skin: Skin warm and dry. Normal skin color. Normal skin turgor. Extremities: No lower extremity edema. No calf tenderness Neuro: Alert and awake ambulatory with slightly ataxic gait, No motor deficit. No sensory deficit.No cerebellar signs , cranial nerves II-XII intact Medical Decision Making Medical Decision Making MDM Narrative: Patient oxycodone would ambulate unsteady gait refusing no detox is any help them at the bedside advised for Section 35 needed patient denies any SI HI patient's friend came , discharge the patient Medications Administered Discontinued Medications Generic Name Dose Route Start Last Admin Trade Name Freq PRN Reason Stop Dose Admin Famotidine 20 mg 08/02/23 18:29 08/02/23 18:59 Famotidine 20 Mg Tablet PO 08/02/23 18:30 20 mg ONCE ONE Administration Lorazepam 2 mg 08/02/23 18:29 08/02/23 18:59 Lorazepam 1 Mg Tablet PO 08/02/23 18:30 2 mg ONCE ONE Administration Ondansetron HCl 4 mg 08/02/23 18:28 08/02/23 18:59 Ondansetron Odt 4 Mg Tab.Rapdis TRANSLINGU 08/02/23 18:29 4 mg ONCE ONE Administration Discharge Plan Discharge Clinical Impression: Alcohol use disorder Patient Disposition: Home, Self-Care Instructions: Alcohol Use Disorder (ED) Additional Instructions: Stop drinking alcohol and Follow with detox Prescriptions: No Action trazodone 50 mg tablet 50 mg PO BEDTIME sertraline 100 mg tablet 100 mg PO DAILY hydroxyzine HCl 50 mg tablet 50 mg PO BID PRN (Reason: Anxiety) melatonin 3 mg tablet 3 mg PO BEDTIME folic acid 1 mg tablet 1 mg PO DAILY buspirone 15 mg tablet 15 mg PO BID
--- NOTE | 2023-08-02 18:48 | MHC.RECOVSUP ---
Attempted to meet with pt in ED22H who is here for ETOH. AT this time pt is not able to hold a conversation and will try to check in with pt at another time.
--- NOTE | 2023-08-02 18:48 | PC.NURSE ---
multiple attempts to get out of bed, unsteady on feet. patient requesting to go home, appears too intoxicated at this time. placed into room 22 for safety.
[2023-08-02] MEDS: Famotidine 20 MG TABLET PO (18:59)
[2023-08-02] MEDS: LORazepam 1 MG TABLET 2 MG PO (18:59)
[2023-08-02] MEDS: Ondansetron ODT 4 MG TAB.RAPDIS TRANSLINGU (18:59)
--- NOTE | 2023-08-02 19:14 | PC.NURSE ---
Pt father Tl, is on this way to pick pt up. Charge nurse Radha deras.
--- NOTE | 2023-08-02 19:41 | MHC.EDTECH ---
Per MD do not do the LABS
--- NOTE | 2023-08-02 20:25 | PC.NURSE ---
patient wants to be discharged at this time is not SI/HI Contacted father left Voice mail explaining if they want to section patient they need to go to court in morning and fille a section 35. patient states cousin is picking her up.
== END 2023-08-02 20:45 | disposition home or self-care (01) ==
PROVIDERS: Emergency Provider Internal Medicine; PCP Internal Medicine
DX: F10.10 Alcohol abuse, uncomplicated (principal); Z71.41 Alcohol abuse counseling and surveillance of alcoholic; Z79.899 Other long term (current) drug therapy
CPT/HCPCS: 99283; 99284

== ENCOUNTER 2023-08-04 15:25 | Emergency (ER) | payer OTHER, SELFPAY ==
[2023-08-04 15:32] VITALS: BP 132/84; BP 132/88; PULSE 102; PULSE 77; RESP 18; TEMP 36.6; O2SAT 97; O2SAT 99; BMI 25.4
--- NOTE | 2023-08-04 16:03 | PC.NURSE ---
Patient arrived via ems from home. Per ems patients family concerned about level of ETOH intake and seizure this morning d/t withdrawal symptoms. Patient reports that she has been a heavy drinker for 5 years and was trying to cut back in the amount of alcohol she has been drinking. Reports that she had a seizure this morning and is very frightened about having another one. Per EMS patients family was considering obtaining a section 35 however did not come in on a section 12. Patient with unsteady gait attmepting to leave, easily re-directed back to bed. Changed into hospital attire, and brought to POD for continued care. belongings also brought to POD.
--- NOTE | 2023-08-04 16:24 | PC.NURSE ---
this RN met with patient, patient reports drinking more over the past few days but has chronic use of ETOH. Pt self reports that she had a seizure this am. While drawing patients blood she reported that she was having a seizure. Patient was noted to shake her hands but have no other characteristics of a seizure. Pt verbalizes that she has no suicidal ideation, no homicidal ideation and no thoughts of self harm patient is now resting comfortably, respirations even and unlabored, skin pwd, alert and oriented x4
[2023-08-04 16:29] LABS: MANUAL DIFF FLAG NO
[2023-08-04 16:33] LABS: Basophils Percent Auto 0.6 % (0-2); Eosinophils Absolute Auto 0.1 X10*3/uL (0.0-0.4); Eosinophils Percent Auto 1.8 % (0-4); Hematocrit 47.6 % (37.0-47.0); Hemoglobin 15.4 g/dl (12.0-16.0); Imm Gran Abs Auto 0.01 X10*3/uL (0.00-0.03); Imm Gran Pct Auto 0.2 % (0.0-0.4); Lymphocytes Absolute Auto 2.4 X10*3/uL (1.2-4.9); Lymphocytes Percent Auto 43.6 % (20-40); Mean Corpuscular HGB Conc 32.4 g/dl (31.0-35.0); Mean Corpuscular Hemoglobin 27.3 pg (27.0-33.0); Mean Corpuscular Volume 84.2 fL (80.0-98.0); Mean Platelet Volume 9.3 fL (9.4-12.3); Monocytes Absolute Auto 0.3 X10*3/uL (0.1-1.2); Monocytes Percent Auto 4.6 % (2-11); Neutrophils Absolute Auto 2.7 x10*3/uL (2.0-8.3); Neutrophils Percent Auto 49.2 % (45-73); Platelet Count 310 X10*3/uL (160-400); Red Blood Count 5.65 X10*6/uL (4.20-5.50); Red Cell Distribution Width 16.6 % (11.0-16.0); White Blood Count 5.4 X10*3/uL (4.8-10.8)
--- NOTE | 2023-08-04 16:43 | ED.PSYCH ---
HPI - Psych General Chief Complaint: ETOH/Substance Use Stated Complaint: ETOH Time Seen by Provider: 08/04/23 16:37 Source: patient and RN notes reviewed Limitations: other (Alcohol intoxication) History of Present Illness HPI Narrative: 32-year-old female with a history of alcohol abuse, PTSD, depression, presents from home by EMS after having a seizure. Patient does not recall as to what exactly happened. She reports that her father saw her having a seizure, contacted EMS and the patient was brought to the emergency department. The patient reports that she has been drinking alcohol on a regular basis. She reports attempting to cut back as she is not satisfied with drinking. She is requesting detox. Patient reports being in detox before as well as in the dual diagnosis program. She does not recall when her last drink was but states that she did drink earlier today. She reports having withdrawal in the past. Unclear if she has had seizures in the past. She denies any suicidal or homicidal ideation. No auditory visual hallucinations. She smokes tobacco. She denies any other illicit drug abuse. Related Data Home Medications Medication Instructions Recorded Confirmed folic acid 1 mg tablet 1 mg PO DAILY 06/02/23 08/04/23 hydroxyzine HCl 50 mg tablet 50 mg PO BID PRN Anxiety 06/02/23 08/04/23 melatonin 3 mg tablet 3 mg PO BEDTIME 06/02/23 08/04/23 sertraline 100 mg tablet 100 mg PO DAILY 06/02/23 08/04/23 trazodone 50 mg tablet 50 mg PO BEDTIME 06/02/23 08/04/23 multivitamin with folic acid 400 1 tab PO DAILY 08/04/23 08/04/23 mcg tablet (Daily-Boone (with folic acid)) Allergies Allergy/AdvReac Type Severity Reaction Status Date / Time No Known Allergies Allergy Verified 08/04/23 17:08 [No Known Allergies*] Review of Systems Review of Systems: Yes all other systems are reviewed and are negative Cardiovascular: Cardiovascular: Denies chest pain and Denies dyspnea on exertion Respiratory: Respiratory: Denies cough and Denies dyspnea on exertion Gastrointestinal: Gastrointestinal: Denies abdominal pain Psychiatric: Psychiatric: Reports anxiety Comments: Positive depression, anxiety [facility] Past Medical History Attestation statement: The following information was validated with the patient. [facility] Narrative: Depression, alcohol use, PTSD Medical History Chronic post-traumatic stress disorder (PTSD) MDD (major depressive disorder), recurrent episode, severe Bulimia SANDY (generalized anxiety disorder) Panic attack MDD (major depressive disorder), recurrent episode, moderate Alcohol use disorder Alcohol withdrawal delirium Alcohol abuse with withdrawal delirium Depression Anxiety Alcohol withdrawal seizure Alcoholism Family History Family History Brother Substance abuse Social History Social History Household Members: Family Housing: Apartment Do you presently have visiting nurse or other home services: No Alcohol intake: current Alcohol intake frequency: 3 or more drinks per day Alcohol type: beer and hard liquor Patient Tobacco Use Status: Never used Tobacco Smoked in Last 30 Days: No e-Cigarette/Vaping Use: Never Used Second Hand Smoke Exposure: No Use of substances other than those prescribed or required for medical reasons: No Substance Use Type: Marijuana Advance Directives: No Advance Directives Information Provided: No Patient : No service: No Current occupational status: unemployed Sexual orientation: Straight/Heterosexual Physical Exam Vital Signs: Vital Signs: Last Vital Signs Temp 97.8 F 08/04/23 15:32 Pulse 77 08/04/23 15:32 Resp 18 08/04/23 15:32 BP 132/88 08/04/23 15:32 Pulse Ox 97 08/04/23 15:32 O2 Del Method Room Air 08/04/23 15:32 BMI result Body Mass Index 25.4 Const: Other: Appears anxious, tearful General: cooperative Eyes: General: appearance normal, both eyes and all related structures Resp: Effort & Inspection: normal respiratory effort Auscultation: clear to auscultation bilaterally Cardio: Rate: regular rate Rhythm: regular rhythm Course Reevaluation(s) Reevaluation #1: Nursing reporting the patient is becoming more agitated. She is willing to trial of p.o. Ativan. Time: 17:33 Reevaluation #2: Dad Tl [phone], at work, not in area and did not witness. Unsure who called but may have been with mom. Reports h/o section 35. Margarita vault worker, offering help several times but patient refusing. Overuses prescribed medications and mixes with alcohol. Going on for over 2 years. Eager to get help and provide support for her. Time: 18:38 Reevaluation #3: Call to patients mom [phone], Kecia Shell's step-dad reports pt drinking heavily over the past several days. Reports patient on phone with someone, and that is who called the ambulance because the patient was not acting appropriately. Ambulance arrived to find patient confused, intoxicated. There was no evidence of seizure , seizure-like or postictal activity. Time: 18:49 Additional Reevaluation(s): 1:40 a.m., August 05, 2023 patient resting comfortably at this time. She is sleeping and no evidence of alcohol withdrawal. Reassessment pending by the care team for final disposition. Medications Administered Generic Name Dose Route Start Last Admin Trade Name Freq PRN Reason Stop Dose Admin Hydroxyzine HCl 50 mg 08/04/23 22:11 08/04/23 22:36 Hydroxyzine Hcl 50 Mg Tablet PO 50 mg BID PRN Administration Anxiety Trazodone HCl 50 mg 08/04/23 22:15 08/04/23 22:36 Trazodone Hcl 50 Mg Tablet PO 50 mg BEDTIME EDEN Administration Discontinued Medications Generic Name Dose Route Start Last Admin Trade Name Freq PRN Reason Stop Dose Admin Lorazepam 1 mg 08/04/23 17:32 08/04/23 17:39 Lorazepam 1 Mg Tablet PO 08/04/23 17:33 1 mg ONCE ONE Administration Lorazepam 2 mg 08/04/23 19:37 08/04/23 19:53 Lorazepam 1 Mg Tablet PO 08/04/23 19:38 2 mg QID ONE Administration Ondansetron HCl 4 mg 08/04/23 17:43 08/04/23 17:45 Ondansetron Odt 4 Mg Tab.Rapdis TRANSLINGU 08/04/23 17:44 4 mg ONCE ONE Administration Medical Decision Making Medical Decision Making MDM Narrative: 5:15 p.m., August 04, 2023 patient denies any suicidal homicidal ideation. Alcohol level is 439. Unable to confirm last alcohol intake. Reviewed remaining labs, essentially at baseline. No evidence of alcohol withdrawal at this time. Sober reassessment pending. Differential Diagnosis Differential Diagnoses: The differential diagnosis associated with the presentation includes Alcohol withdraw Alcohol dependence Alcohol intoxication Seizure disorder Lab Data [facility] Lab Attestation statement: I reviewed the patient's lab results. 08/04/23 16:23 08/04/23 16:23 Labs: Lab Results 08/04/23 Range/Units 16:23 WBC 5.4 (4.8-10.8) X10*3/uL RBC 5.65 H (4.20-5.50) X10*6/uL Hgb 15.4 (12.0-16.0) g/dl Hct 47.6 H (37.0-47.0) % MCV 84.2 (80.0-98.0) fL MCH 27.3 (27.0-33.0) pg MCHC 32.4 (31.0-35.0) g/dl RDW 16.6 H (11.0-16.0) % Plt Count 310 (160-400) X10*3/uL MPV 9.3 L (9.4-12.3) fL Immature Gran % (Auto) 0.2 (0.0-0.4) % Neut % (Auto) 49.2 (45-73) % Lymph % (Auto) 43.6 H (20-40) % [place] % (Auto) 4.6 (2-11) % Eos % (Auto) 1.8 (0-4) % Baso % (Auto) 0.6 (0-2) % Lymph # (Auto) 2.4 (1.2-4.9) X10*3/uL [place] # (Auto) 0.3 (0.1-1.2) X10*3/uL Eos # (Auto) 0.1 (0.0-0.4) X10*3/uL Baso # (Auto) 0.0 (0.0-0.2) X10*3/uL Abs Immat Gran (auto) 0.01 (0.00-0.03) X10*3/uL Absolute Neuts (auto) 2.7 (2.0-8.3) x10*3/uL Absolute Nucleated RBC 0.000 (0.0-0.012) X10*3/uL Nucleated RBC % (auto) 0.0 (0.0-0.2) /100WBC Sodium 146 H (135-145) mmol/L Potassium 4.4 D (3.3-5.1) mmol/L Chloride 108 (96-108) mmol/L Carbon Dioxide 22 (22-29) mmol/L Anion Gap 20 (12-20) BUN 5 L (9-16) mg/dL Creatinine 0.69 (0.5-1.4) mg/dL Estim Creat Clear Calc 110.2 Estimated GFR > 60 Random Glucose 85 (60-115) mg/dL Calcium 8.9 (8.4-10.2) mg/dL Magnesium 2.2 (1.6-2.6) mg/dL Total Bilirubin 0.3 (0.0-1.0) mg/dL AST 33 H (5-31) U/L ALT 14 (0-31) U/L Alkaline Phosphatase 78 (39-117) U/L Total Protein 8.8 H (6.5-8.0) g/dL Albumin 4.6 (3.5-5.0) g/dL Ethyl Alcohol 436 H* mg/dL COVID-19 ([facility]) Negative (Negative) COVID-19 Clin Com See Note Tests considered The following testing was considered but not selected: Consideration for CT imaging of the brain given the patient's reported possible seizure. Discharge Plan Discharge Clinical Impression: Alcohol use disorder Patient Disposition: Still a Patient Prescriptions: No Action trazodone 50 mg tablet 50 mg PO BEDTIME sertraline 100 mg tablet 100 mg PO DAILY hydroxyzine HCl 50 mg tablet 50 mg PO BID PRN (Reason: Anxiety) melatonin 3 mg tablet 3 mg PO BEDTIME folic acid 1 mg tablet 1 mg PO DAILY multivitamin with folic acid [Daily-Boone (with folic acid)] 400 mcg tablet 1 tab PO DAILY
[2023-08-04 16:47] LABS: Ethanol 436 mg/dL
--- NOTE | 2023-08-04 16:48 | PC.NURSE ---
patient ambulating with strong steady gait around ED pod. Patient requesting to leave, this RN explained to patient that she needs to be seen by a provider first and then decisions can be made. Patient beginnning to escalate, yelling that she does not need to be here. PA at bedside at this time speaking with patient
[2023-08-04 16:53] LABS: COVID-19 Test Negative (Negative); IDNOW Serial# BCCEAD1C
[2023-08-04 17:09] LABS: Alanine Aminotransferase 14 U/L (0-31); Albumin Level 4.6 g/dL (3.5-5.0); Alkaline Phosphatase 78 U/L (39-117); Anion Gap 20 (12-20); Aspartate Amino Transferase 33 U/L (5-31); Bilirubin Total 0.3 mg/dL (0.0-1.0); Blood Urea Nitrogen 5 mg/dL (9-16); Calcium 8.9 mg/dL (8.4-10.2); Carbon Dioxide 22 mmol/L (22-29); Chloride 108 mmol/L (96-108); Glucose Random 85 mg/dL (60-115); Magnesium 2.2 mg/dL (1.6-2.6); Potassium 4.4 mmol/L (3.3-5.1); Sodium 146 mmol/L (135-145); Total Protein 8.8 g/dL (6.5-8.0)
[2023-08-04 17:35] LABS: Creatinine Clr Calc Pharmacy 110.2; Estimated Glomerular Filt Rate > 60
[2023-08-04] MEDS: LORazepam 1 MG TABLET PO (17:39)
[2023-08-04] MEDS: Ondansetron ODT 4 MG TAB.RAPDIS TRANSLINGU (17:45)
--- NOTE | 2023-08-04 18:41 | PC.NURSE ---
late: patient reporting increased anxiety, per PA 1mg Ativan this RN sat with patient and discussed difficulty of withdrawals and ETOH addiction. Patient calmed down and is now sleeping
[2023-08-04] MEDS: LORazepam 1 MG TABLET 2 MG PO (19:53)
[2023-08-04] MEDS: traZODone HCL 50 MG TABLET PO (22:36)
[2023-08-04] MEDS: hydrOXYzine HCL 50 MG TABLET PO (22:36)
--- NOTE | 2023-08-05 06:29 | PC.NURSE ---
Patient slept through the night, no distress observed/reported, urine pending, behavior non concerning at this time but unpredictable at time, medication compliant, ativan 2 mg po administered at 1951 with + effect, care consult ordered/pending evaluation, VSS, will continue to monitor.
--- NOTE | 2023-08-05 06:32 | PC.NURSE ---
Asymptomatic of ETOH withdrawal at this time. PRN Ativan 2mg PO available for ETOH withdrawal, will continue to monitor.
[2023-08-05 08:11] VITALS: BP 136/91; PULSE 116; RESP 18; TEMP 36.8; O2SAT 97
--- NOTE | 2023-08-05 10:07 | MHC.RECOVRN ---
This rfp writer met with patient, patient presented to the ED intoxicated ETOH. Pt was resting, awake to verbal command. Pt reports [employer], binge driking 1 pint daily for 3 days. Pt reports prior to 3 days, in recovery for 1 month. 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 Pt reports hx of trying medications for ETOH use, with no effect. Pt declining addiciton/recovery supports at this time. Pt denies ETOH withdrawal. Pt requesting to go home. Pt encouraged to represent in the future if needs supports for ETOH use. Pt verbalized understanding. Provider aware.
== END 2023-08-05 10:34 | disposition home or self-care (01) ==
PROVIDERS: Physician Assistant; Emergency Provider Emergency Medicine Emergency Medical Services; PCP Internal Medicine
DX: F10.20 Alcohol dependence, uncomplicated (principal); Y90.8 Blood alcohol level of 240 mg/100 ml or more; Z20.822 Contact with and (suspected) exposure to COVID-19; F19.10 Other psychoactive substance abuse, uncomplicated; F33.2 Major depressive disorder, recurrent severe without psychotic features; F41.1 Generalized anxiety disorder; F43.12 Post-traumatic stress disorder, chronic; Z79.899 Other long term (current) drug therapy
CPT/HCPCS: 36415; 80053; 80307; 83735; 85025; 87635; 99284

== ENCOUNTER 2023-12-01 15:39 | Emergency (ER) | payer OTHER, SELFPAY ==
--- NOTE | ~2023-12-01 | XR_ITS ---
EXAMINATION: XR WRIST, RIGHT XR HAND, RIGHT CLINICAL INFORMATION: Trauma, pain, swelling COMPARISON: None available. TECHNIQUE: PA, lateral, and oblique views of the right hand and wrist and a navicular view of the wrist (4 images total) FINDINGS: There is no evidence of acute fracture or subluxation of the right hand or right wrist. No erosive or proliferative changes are detected. There are are no suspicious bone lesions. Negative ulnar variance is incidentally noted, which can be associated with injury to the triangular fibrocartilage complex. XR/XR hand wrist RT IMPRESSION: No acute fracture or subluxation of the right hand or wrist.
--- NOTE | ~2023-12-01 | CT_ITS ---
EXAMINATION: CT HEAD WITHOUT CONTRAST CLINICAL INFORMATION: Trauma, EtOH, fall COMPARISON: 01/18/2023 TECHNIQUE: Contiguous axial imaging was performed from the skull base to vertex without intravenous administration of contrast. This CT examination was performed using dose optimization techniques as appropriate, variously including the following: *Automated exposure control *Adjustment of mA and/or kV according to patient size (this includes techniques or standardized protocols for targeted exams where dose is matched to indication/reason for exam; i.e. extremities or head) *Use of iterative reconstruction technique DLP: 688 mGy-cm FINDINGS: Examination is motion degraded. The ventricles and sulci are normal in size and configuration. No acute hemorrhage, mass effect or shift is evident. Ugarte-white differentiation is maintained. In the posterior fossa, the brainstem, cerebellum and fourth ventricle image normally. The orbits and calvarium are intact. The paranasal sinuses and mastoid air cells are well pneumatized and clear. CT/CT head/brain wo IV con IMPRESSION: 1. Unremarkable noncontrast brain CT. No acute hemorrhage, mass effect or shift.
--- NOTE | 2023-12-01 15:55 | ED_ITS ---
HPI - General Adult General Chief complaint: Psychiatric Symptoms Stated complaint: ETOH, SI, R HAND/WRIST PAIN Time Seen by Provider: 12/01/23 15:54 Source: patient and RN notes reviewed Limitations: no limitations History of Present Illness HPI narrative: 33-year-old female who has a history of alcohol abuse, polysubstance use, depression, anxiety, presents for evaluation of acute alcohol intoxication. Patient is also reporting SI without a specific plan at this time. Patient is also stating that she is having pain to her right hand and wrist. She reports that she fell today but does not recall exactly what happened. She thinks she may have passed out. She did strike her head. She feels this though she landed on her right hand and wrist. She is right-hand dominant. She denies any illicit drug abuse. She is not able to quantify as to how much she drank today. She has been drinking daily. Related Data Home Medications Medication Instructions Recorded Confirmed trazodone 50 mg tablet 150 mg PO BEDTIME PRN insomnia 06/02/23 12/01/23 Allergies Allergy/AdvReac Type Severity Reaction Status Date / Time No Known Allergies Allergy Verified 08/04/23 17:08 [No Known Allergies*] Review of Systems 2 Constitutional: Constitutional: Denies chills, Denies fever(s) and Denies headache(s) Eyes: Eyes: Denies change in vision and Denies other (No redness.) ENT: Denies headache(s), Denies nasal congestion, Denies neck pain and Denies sore throat Cardiovascular: Cardiovascular: Denies chest pain and Denies orthopnea Gastrointestinal: Gastrointestinal: Denies abdominal pain, Denies melena, Denies hematochezia, Denies diarrhea, Denies nausea and Denies vomiting Musculoskeletal: Musculoskeletal: Denies back pain, Denies muscle weakness, Denies neck pain and Denies numbness Comments: Right hand and wrist pain Integumentary/Breasts: Skin/Breast: Denies rash Neurologic: Denies headache(s), Denies focal weakness and Denies numbness Psychiatric: Psychiatric: Reports depression and Reports hopelessness PMFSH Past Medical History Onset Date is defined in the Problem List Problems that require an onset date and time if occurred within 24 hrs of arrival to the ED Aortic Dissection and Rupture; Neurologic impairment; Cardiopulmonary Arrest; Endotracheal Intubation; Insertion or Replacement of Mechanical Circulatory Assist Device Medical History Chronic post-traumatic stress disorder (PTSD) MDD (major depressive disorder), recurrent episode, severe Bulimia SANDY (generalized anxiety disorder) Panic attack MDD (major depressive disorder), recurrent episode, moderate Alcohol use disorder Alcohol withdrawal delirium Alcohol abuse with withdrawal delirium Depression Anxiety Alcohol withdrawal seizure Alcoholism Family History Family History Brother Substance abuse Social History Social History Household Members: Family Housing: Apartment Do you presently have visiting nurse or other home services: No Alcohol intake: current Alcohol intake frequency: 3 or more drinks per day Alcohol type: beer and hard liquor Comment: patient refused alarms and camera, educated on asking for assistnace Patient Tobacco Use Status: Never used Tobacco Smoked in Last 30 Days: No e-Cigarette/Vaping Use: Never Used Second Hand Smoke Exposure: No Use of substances other than those prescribed or required for medical reasons: Yes Substance Use Type: Marijuana Substance Use Frequency: Chronic Longstanding Advance Directives: No Advance Directives Information Provided: No Patient : No service: No Current occupational status: unemployed Sexual orientation: Straight/Heterosexual Physical Exam ED Vital Signs: Vital Signs - 24 hr 12/01/23 15:56 12/01/23 17:20 12/01/23 20:15 Temperature 99.1 F 97.7 F Pulse Rate 118 H 112 H Respiratory Rate 18 18 18 Blood Pressure 134/95 H 132/92 H Pulse Oximetry 95 98 Oxygen Delivery Method Room Air Room Air BMI result Body Mass Index 30.1 Const Other: ETOH halitosis. No obvious deformity to the head. General: cooperative Eyes General: appearance normal, both eyes and all related structures Resp Auscultation: clear to auscultation bilaterally Cardio Rate: regular rate Rhythm: regular rhythm GI Palpation (GI): Soft to palpation and nontender Skin Other: [place] warm and dry, no diaphoresis or jaundice. Extrem Other: Rough Planer Tender Is 5/5 on the left, 4/5 on the right secondary to pain. There is diffuse tenderness to the thenar eminence of the right hand and also the dorsum of the wrist over the ulna. Patient is able to pronate and supinate. Radial pulses are +2 and equal bilaterally. Capillary refills less than 2 seconds. Psych Affect: Sad affect present Attitude: cooperative Thought content: Suicidality present and no homicidality Course Course Course Narrative: 7:49 p.m. Nursing has notified this provider that the patient's CIWA is now 25. Patient will be transferred from the [facility] pod. Reassessment at this time, patient is anxious but her symptoms resolve when speaking to this provider. CIWA has not appear to be 25 and no obvious withdrawal. 9:30 p.m. patient was quite anxious earlier. She was given Ativan and reports feeling much better. She does not appear to be in alcohol withdrawal at this time. I have had extensive discussion with the patient regarding detox. She continues to be unsure of this as she is concerned about her work. Patient states that she is able to contact her mother who will pick her up today. Discussed with Dr. Arevalo who agrees with plan. 10:07 p.m. patient's father Tl has called, . He is very concerned about his daughter and does not feel that she is safe for discharge home at this time. He is reporting that she is manipulative and does not get along with the mother and that would not be a safe disposition home. He reports that she has increased her alcohol use over the past week or so, is verbally abusive and has had suicide attempts in the past with attempting to overdose on pills. Patient was recently [address], discharge approximately 1 month ago. Patient will remain in the emergency department at this time for further evaluation by the care team. Discussed with Dr. Arevalo. Add Librium 100 mg. 11:30 p.m. patient resting comfortably at this time. No evidence of withdrawal. 1:20 a.m., December 02, 2023 patient signed out in stable condition with care team assessment pending. Patient remains on CIWA. She remains on continuous observation and no alcohol withdrawal symptoms at this time. Medications Administered Generic Name Dose Route Start Last Admin Trade Name Freq PRN Reason Stop Dose Admin Lorazepam 2 mg 12/01/23 18:03 12/01/23 20:23 Lorazepam 1 Mg Tablet PO 2 mg Q4H PRN Administration Alcohol Withdrawal, anxiety Trazodone HCl 150 mg 12/01/23 23:14 12/01/23 23:25 Trazodone Hcl 50 Mg Tablet PO 150 mg BEDTIME PRN Administration insomnia Discontinued Medications Generic Name Dose Route Start Last Admin Trade Name Mary PRN Reason Stop Dose Admin Chlordiazepoxide HCl 100 mg 12/01/23 22:15 12/01/23 23:23 Chlordiazepoxide Hcl 25 Mg Capsule PO 12/01/23 22:16 100 mg ONCE ONE Administration Ibuprofen 600 mg 12/01/23 20:25 12/01/23 20:28 Ibuprofen 600 Mg Tablet PO 12/01/23 20:26 600 mg ONCE ONE Administration Lorazepam 2 mg 12/01/23 18:02 12/01/23 18:05 Lorazepam 1 Mg Tablet PO 12/01/23 18:03 2 mg ONCE STA Administration Medical Decision Making Medical Decision Making [facility] Narrative: 33-year-old female who has history of alcohol dependence, depression, presents for evaluation of suicidal ideation as well as right hand and wrist pain. Check labs, care team management, CT brain due to fall. Patient is neurologically intact. CIWA. No evidence of withdrawal at this time. Care Team eval. Differential Diagnosis Differential Diagnoses: The differential diagnosis associated with the presentation includes Acute alcohol intoxication Depression Bipolar Alcohol dependence PTSD Psychosis Consult Healthcare Provider Management of the patient was discussed with: Behavioral Health Provider Patient evaluated by behavioral health team. Patient not confirming whether she wants detox or further assistance at this time. Lab Data [facility] Lab Attestation statement: I reviewed the patient's lab results. 12/01/23 18:54 12/01/23 18:54 Labs: Lab Results 12/01/23 12/01/23 Range/Units 16:47 18:54 WBC 7.4 (4.8-10.8) X10*3/uL RBC 5.72 H (4.20-5.50) X10*6/uL Hgb 14.1 (12.0-16.0) g/dl Hct 43.3 (37.0-47.0) % MCV 75.7 L (80.0-98.0) fL MCH 24.7 L (27.0-33.0) pg MCHC 32.6 (31.0-35.0) g/dl RDW 14.2 (11.0-16.0) % Plt Count 343 (160-400) X10*3/uL MPV 9.3 L (9.4-12.3) fL Immature Gran % (Auto) 0.3 (0.0-0.4) % Neut % (Auto) 57.6 (45-73) % Lymph % (Auto) 37.9 (20-40) % [place] % (Auto) 3.5 (2-11) % Eos % (Auto) 0.0 (0-4) % Baso % (Auto) 0.7 (0-2) % Lymph # (Auto) 2.8 (1.2-4.9) X10*3/uL [place] # (Auto) 0.3 (0.1-1.2) X10*3/uL Eos # (Auto) 0.0 (0.0-0.4) X10*3/uL Baso # (Auto) 0.1 (0.0-0.2) X10*3/uL Abs Immat Gran (auto) 0.02 (0.00-0.03) X10*3/uL Absolute Neuts (auto) 4.3 (2.0-8.3) x10*3/uL Absolute Nucleated RBC 0.000 (0.0-0.012) X10*3/uL Nucleated RBC % (auto) 0.0 (0.0-0.2) /100WBC Sodium 143 (135-145) mmol/L Potassium 3.9 (3.3-5.1) mmol/L Chloride 106 (96-108) mmol/L Carbon Dioxide 24 (22-29) mmol/L Anion Gap 17 (12-20) BUN 7 L (9-16) mg/dL Creatinine 0.74 (0.5-1.4) mg/dL Estim Creat Clear Calc 106.3 Estimated GFR > 60 Random Glucose 101 (60-115) mg/dL Calcium 9.5 D (8.4-10.2) mg/dL Total Bilirubin 0.5 (0.0-1.0) mg/dL AST 27 (5-31) U/L ALT 12 (0-31) U/L Alkaline Phosphatase 82 (39-117) U/L Total Protein 9.4 H (6.5-8.0) g/dL Albumin 5.1 H (3.5-5.0) g/dL Urine Color Yellow Urine Appearance Clear Urine pH 6.0 (5.0-9.0) Ur Specific [place] <= 1.005 (1.005-1.025) Urine Protein Negative (Neg-Trace) mg/dL Urine Glucose (UA) Negative (Negative) mg/dL Urine Ketones Negative (Negative) mg/dL Urine Blood Negative (Negative) Urine Nitrite Negative (Negative) Ur Leukocyte Esterase Negative (Negative) Urine RBC 0-2 (0-2) /HPF Urine WBC 0-5 (0-5) /HPF Ur Squamous Epith Cells 0-2 (0-2) /HPF Urine Bacteria None Seen (None Seen) Hyaline Casts 0-2 (0-2) /LPF Urine Test NEGATIVE (NEGATIVE) Salicylates < 5.0 L (15-30) mg/dL Urine Opiates Screen Not Detected (Not Detect) Urine Fentanyl Screen Not Detected (Not Detect) Acetaminophen < 3 (<30) mcg/mL Ur Barbiturates Screen Not Detected (Not Detect) Ur Phencyclidine Scrn Not Detected (Not Detect) Ur Amphetamines Screen Not Detected (Not Detect) U Benzodiazepines Scrn Not Detected (Not Detect) Urine Cocaine Screen Not Detected (Not Detect) U Marijuana (THC) Screen POSITIVE H (Not Detect) Ethyl Alcohol 359 H* mg/dL COVID-19 (MONICA) Negative (Negative) COVID-19 Clin Com See Note Radiology Impression Discussion of test interpretation with radiology: I have reviewed the radiologist's reading. Radiologist Impression: [place] [id number] XRay Report Signed Patient: Kecia Timmons MR#: [id number] : 1990 Acct:[id number] Age/Sex: 33 / F ADM Date: 12/01/23 Loc: .ED Attending Dr: Ordering Physician: Leonardo Costello Date of Service: 12/01/23 Procedure(s): XR hand wrist RT Accession Number(s): [id number] cc: Physician,Unknown ; Leonardo Costello~ EXAMINATION: XR WRIST, RIGHT XR HAND, RIGHT CLINICAL INFORMATION: Trauma, pain, swelling COMPARISON: None available. TECHNIQUE: PA, lateral, and oblique views of the right hand and wrist and a navicular view of the wrist (4 images total) FINDINGS: There is no evidence of acute fracture or subluxation of the right hand or right wrist. No erosive or proliferative changes are detected. There are are no suspicious bone lesions. Negative ulnar variance is incidentally noted, which can be associated with injury to the triangular fibrocartilage complex. XR/XR hand wrist RT IMPRESSION: No acute fracture or subluxation of the right hand or wrist. Dictated By: Joseph Toribio MD Signed By: <Electronically signed by Joseph Toribio MD in [place]> 12/01/[address] [address] [address] Scan Report Signed Patient: Kecia Timmons MR#: [id number] : 1990 Acct:[id number] Age/Sex: 33 / F ADM Date: 12/01/23 Loc: HO.ED Attending Dr: Ordering Physician: Leonardo Costello Date of Service: 12/01/23 Procedure(s): CT head/brain wo IV con Accession Number(s): [id number] cc: Physician,Unknown ; Leonardo Costello~ EXAMINATION: CT HEAD WITHOUT CONTRAST CLINICAL INFORMATION: Trauma, EtOH, fall COMPARISON: 01/18/2023 TECHNIQUE: Contiguous axial imaging was performed from the skull base to vertex without intravenous administration of contrast. This CT examination was performed using dose optimization techniques as appropriate, variously including the following: *Automated exposure control *Adjustment of mA and/or kV according to patient size (this includes techniques or standardized protocols for targeted exams where dose is matched to indication/reason for exam; i.e. extremities or head) *Use of iterative reconstruction technique DLP: 688 mGy-cm FINDINGS: Examination is motion degraded. The ventricles and sulci are normal in size and configuration. No acute hemorrhage, mass effect or shift is evident. Ugarte-white differentiation is maintained. In the posterior fossa, the brainstem, cerebellum and fourth ventricle image normally. The orbits and calvarium are intact. The paranasal sinuses and mastoid air cells are well pneumatized and clear. CT/CT head/brain wo IV con IMPRESSION: 1. Unremarkable noncontrast brain CT. No acute hemorrhage, mass effect or shift. Dictated By: Joseph Toribio MD Signed By: <Electronically signed by Joseph Toribio MD in [place]> 12/01/23 [id number] Social Determinants Patient?s care significantly limited by Social Determinants of Health including: Alcoholism and drug addiction in family, Problems related to primary support group and Problems related to employment Discharge Plan Discharge Clinical Impression: Alcohol use disorder Depression Qualifiers: Depression Type: major depressive disorder Patient Disposition: Home, Self-Care Instructions: Abuse of Alcohol (ED) Additional Instructions: Avoid excessive alcohol use. Call for detox if you choose. Follow-up with your primary care provider. Call this week to schedule a follow- up appointment. Return to the emergency department if you have any worsening of symptoms, or any concerns. Get well soon! Prescriptions: No Action trazodone 50 mg tablet 150 mg PO BEDTIME PRN (Reason: insomnia) Interventions: [place]-Suicide Risk Severity Scale Last Done: 12/01/23 17:20
[2023-12-01 15:56] VITALS: BP 128/78; BP 134/95; PULSE 110; PULSE 118; RESP 18; TEMP 37.3; O2SAT 95; O2SAT 98; BMI 30.1
--- OUTSIDE RECORDS SUMMARY | 2023-12-01 16:50 | XMS_ITS | Continuity of Care Document ---
Author Name Unknown Organization [facility] ter Address [address] [place] [id number] Care Team Providers Care Child Care Aide Name Role Phone Mike Franks MD Primary Care Physician En[place] [facility] [place]): 08/06/23 - 08/06/[address] [id number]- Discharge Disposition: A-D/C Home Attending Physician: Yusuf De La Paz MD Admitting Physician: Deonte Bhagat MD Referring Physician: [...] cm, ... Start Date: 04/05/23 Status: Ordered magnesium oxide 400 mg oral tablet = 400 mg, By Mouth, 2 times a day, for 2 days, # 4 tablet, 0 Refills, Acute 08/08/23 15:53:00 EDT, 08/06/23 15:53:00 EDT, Tablet, [id number], Partial fill upon patient request if the prescription is for a schedule II opioid drug., 160, cm, ... Start Date: 08/06/23 Stop Date: 08/08/23 Status: Ordered multivitamin Multiple Vitamins oral tablet 1 tablet, By Mouth, Daily, # 30 tablet, 0 Refills, Maintenance, 06/26/23 11:20:00 EDT, Tablet, [facility] #[id number], Partial fill upon patient request if the prescription is for a schedule II opioid drug., 1 tablet By Mouth Daily,x30 days, 161, cm, 080... Start Date: 06/26/23 Stop Date: 07/26/23 Status: Ordered naltrexone 50 mg oral tablet 1 tablet = 50 mg, By Mouth, Daily, # 30 tablet, 1 Refills, Maintenance, 06/26/23 11:23:00 EDT, Tablet, [facility] #[id number], Partial fill upon patient request if the prescription is for a schedule II opioid drug., 161, cm, 06/26/23 7:04:00 EDT, Height,... Start Date: 06/26/23 Stop Date: 08/25/23 Status: Ordered pyridoxine 50 mg oral tablet 50 mg, By Mouth, Daily, for 30 days, # 30 tablet, Refills 0, Tot. Refills 0, Acute 09/05/23 15:56:00 EDT, 08/06/23 15:56:00 EDT, Route to Pharmacy Electronically, [facility]/pharm[facility] #[id number], Partial fill upon patient request if the prescription is for a sched... Start Date: 08/06/23 Stop Date: 09/05/23 Status: Ordered thiamine 100 mg oral tablet [...] 3 Oxygen Saturation [94-100 %] 100 % (08/06/23 9:30 AM) 98 % (08/06/23 5:04 AM) 100 % (08/06/23 5:01 AM) Pulse Rate [55-90 bpm] 98 bpm *H* (08/06/23 9:30 AM) 99 bpm *H* (08/06/23 5:04 AM) 99 bpm *H* (08/06/23 5:01 AM) Blood Pressure [90-138/55-84 mm Hg] 127/88mm Hg (08/06/23 9:30 AM) 126/84mm Hg (08/06/23 5:04 AM) 126/89mm Hg (08/06/23 5:01 AM) Respiratory Rate [16-30 br/min] 18 br/min (08/06/23 9:30 AM) 18 br/min (08/06/23 5:04 AM) 18 br/min (08/06/23 5:01 AM) Temperature [96.8-100.4 DegF] 98.5 DegF (08/06/23 9:30 AM) 98.5 DegF (08/06/23 5:04 AM) 98.5 DegF (08/06/23 5:01 AM) Mode of Delivery (Oxygen) Room air (08/06/23 9:30 AM) Room air (08/06/23 5:04 AM) Room air (08/06/23 5:01 AM) Blood pressure sites Arm, right (08/06/23 9:30 AM) Arm, right (08/06/23 5:04 AM) Arm, right (08/06/23 5:01 AM) Temperature Route Oral (08/06/23 9:30 AM) Oral (08/06/23 5:04 AM) Oral (08/06/23 5:01 AM) Social History Social History Type Response Smoking Status Never (less than 100 in lifetime) entered on: 01/25/23 Sex Admission evaluation note * Weston WARD, Melania Son: PERFORM, MODIFY, MODIFY, MODIFY Event Display: Admission Note Authored Date: [id number] Patient: ??ALLYSSA BEAUCHAMP ? Age:??32 Years?Sex:??Female?:??1990?? Chief Complaint/Reason for Consultation Pt coming from home, c/o N/V, intermittent chest pain. Pt says last alcoholic drink was this afternoon Hx: seizures History of Present Illness 32-year-old female with PMH of alcohol use disorder with multiple admissions for alcohol withdrawalcame to the ED with alcohol withdrawal-like symptoms. ?? Patient's medical chart reviewed, seen and examined at bedside.?? Patient was recently admitted anddischarged on 06/30 for alcohol withdrawal symptoms.?? Patient states that she is trying to cut downon her drinking and only drank 2 pints a day.?? Patient states her last drink was yesterday.?? Complains of feeling shaky, anxious, tremulous.?? Also complains of feeling some palpitations. ??She cutdown on her drinking for the last 1 week and already visited [facility] where she received oral benzodiazepines and discharged.?? Patient was very concerned that she might go into withdrawal sei zurerma and so came to the ED for further evaluation.?? Endorses having some nausea but no vomiting.?? Able to tolerate p.o. denies having any fevers, chills, cough, sore throat, runny nose, chest pain, shortness of breath, abdominal pain, constipation, diarrhea, dysuria, hematuria, hematochezia/melena. ?? In the ED patient remains afebrile, HR 99, RR 18, BP 126/84, saturation 100% on room air.?? No leukocytosis WBC of 5.8, Hgb 14.2, platelets 181, electrolytes normal, BUN/creatinine 7/0.7, blood glucose 92, blood alcohol level 285, C-19 negative, UA negative.?? Patient received 1 L fluid bolus, phenobarbital to 60 mg x 1 and 65 mg x 2.?? Patient was placed on CIWA protocol and will be admitted to inpatient medicine service for further management Review of Systems All systems reviewed and are negative except as mentioned in HPI Objective ? Vital Signs?? Temperature: 98.5 DegF (08/06/23 05:04:00) Temperature Route: Oral (08/06/23 05:04:00) Pulse Rate:??99 bpm??High (08/06/23 05:04:00) Respiratory Rate: 18 br/min (08/06/23 05:04:00) Systolic Blood Pressure: 126 mm Hg (08/06/23 05:04:00) Diastolic Blood Pressure: 84 mm Hg (08/06/23 05:04:00) Blood pressure sites: Arm, right (08/06/23 05:04:00) Mean Arterial Pressure: 101 mm Hg (08/06/23 05:01:00) Pulse Pressure: 37 mm Hg (08/06/23 05:01:00) Oxygen Saturation: 98 % (08/06/23 05:04:00) Mode of Delivery (Oxygen): Room air (08/06/23 05:04:00) Early Warning Score: 0 (08/06/23 06:46:06) ? Pain Scores?? No qualifying data available. ? Intake/Output? No Data Available ?? Precautions Seizure Precautions ? Physical Exam Gen- not in acute distress,??anxious, slightly shaky speaking in full sentences. HEENT- Normocephalic, Atraumatic, No pallor, icterus Neck-supple, no JVD Heart-S1S2(+),??regular, no murmurs. lungs- Clear, b/l air entry, no wheezing. Abdomen-soft, nontender,nondistended,??bowel sounds present, No guarding. Extremities-pulses palpable. No pedal edema. No calf tenderness. Neurological- AAO??3. No gross focal neurological deficits noted. Psychiatric-patient???s mood is stable. Assessment/Plan 32-year-old female with PMH of alcohol use disorder with multiple admissions for alcohol withdrawalcame to the ED with alcohol withdrawal-like symptoms. In the ED patient remains afebrile, HR 99, RR 18, BP 126/84, saturation 100% on room air.?? No leukocytosis WBC of 5.8, Hgb 14.2, platelets 181, electrolytes normal, BUN/creatinine 7/0.7, blood glucose 92, blood alcohol level 285, C-19 negative, UA negative.?? Patient received 1 L fluid bolus, phenobarbital to 60 mg x 1 and 65 mg x 2.?? Patient was placed on [facility] protocol and will be admitted to inpatient medicine service for further management ? 1. ??Alcohol use disorder, severe, dependence ??(F10.20) 3. ??Severe recurrent major depression ??(F33.2) 4. ??anxiety ??(F32.9) Vitals as per unit standards Telemetry monitoring On [facility] protocol Neurochecks Seizure precautions Lorazepam as needed as per CIWA score Thiamine/folic acid/multivitamin/pyridoxine Addiction medicine consult as patient trying to??quit alcohol Daily trend electrolytes and replete as needed Gentle IV hydration Zofran as needed for nausea and vomiting We will continue with??escitalopram 5 mg daily in a.m. We will continue trazodone 150 mg daily at bedtime Hydroxyzine as needed As needed bowel regimen ?? Code???full,??confirmed with patient at bedside Diet???regular diet DVT prophylaxis???early ambulation,??low risk, VTE guidelines done ?? Patient seen and examined on 08/06/2023 ? Histories Allergies Allergies ?(Active and Proposed [...] family history recorded. ? Medications Home Medications Escitalopram (escitalopram 5 mg oral tablet)?1?tab(s)?5?Milligram?By Mouth?Daily in AM Folic Acid (folic acid 1 mg oral tablet)?1?Milligram?By Mouth?Daily HydrOXYzine (hydrOXYzine pamoate 50 mg oral capsule)?1?capsule?50?Milligram?By Mouth?2 times a day?as needed?Anxiety Multivitamin (multivitamin Multiple Vitamins oral tablet)?1?tab(s)?By Mouth?Daily?for 30?Days Naltrexone (naltrexone 50 mg oral tablet)?1?tab(s)?50?Milligram?By Mouth?Daily?for 30?Days Thiamine (thiamine 100 mg oral tablet)?100?Milligram?By Mouth?2 times a day Trazodone (traZODone 100 mg oral tablet)?TAKE ONE AND ONE HALF (1.5) TABLETS BY MOUTH AT BEDTIME ? Inpatient Medications Medications (20) Active SCHEDULED: (8) Escitalopram 10 mg Tablet (escitalopram 10 mg oral tablet) ??5 mg, By Mouth, Daily in AM Folic Acid 1 mg Tablet (Folic Acid Tablet) ??1 mg, By Mouth, Daily Multivitamin Tablet ??1 tablet, By Mouth, Daily NaCl 0.9% Flush 3ml (NaCL 0.9% Flush) ??3 mL, IV Push, Every 8 hours Naltrexone 50 mg tablet (Naltrexone Oral Tablet) ??50 mg, By Mouth, Daily Pyridoxine 50 mg Tablet (Pyridoxine Tablet) ??50 mg, By Mouth, Daily Thiamine 100 mg Tablet (Thiamine Tablet) ??100 mg, By Mouth, 2 times a day Trazodone 50 mg Tablet (traZODone 50 mg oral tablet) ??150 mg, By Mouth, Daily at bedtime CONTINUOUS: (0) PRN: (12) Acetaminophen 325 mg Tablet (Acetaminophen Tablet) ??650 mg, By Mouth, Every 4 hours Dextromethorphan-Guaifenesin 20 mg-200 mg/10 mL Liqu UD (Robitussin DM Liquid) ??10 mL, By Mouth, Every 4 hours Docusate Sodium 100 mg Capsule (Docusate Sodium Capsule) ??100 mg 1 capsule, By Mouth, 2 times a day HydrOXYzine Pamoate 25mg Capsule (hydrOXYzine pamoate 25 [...] Gm 1 pack/packet, By Mouth, Daily Senna Tablet ??8.6 mg 1 tablet, By Mouth, 2 times a day Simethicone 80 mg Chewable Tablet (Simethicone Tablet) ??80 mg, Chew, 3 times a day ? Results Recent Labs BLOOD COUNT & DIFF WBC 5.8 k/mm3 ()?? 08/05/2023 22:38 RBC 5.30 m/mm3 ()?? 08/05/2023 22:38 Hgb 14.2 Gm/dL ()?? 08/05/2023 22:38 Hct 43.6 % ()?? 08/05/2023 22:38 MCV 82.3 femtoliters ()?? 08/05/2023 22:38 MCH 26.8 pg (Low)?? 08/05/2023 22:38 MCHC 32.6 g/dL (Low)?? 08/05/2023 22:38 Platelet Count 181 k/mm3 ()?? 08/05/2023 22:38 RDW-SD 46.6 femtoliters ()?? 08/05/2023 22:38 MPV 11.0 femtoliters ()?? 08/05/2023 22:38 Nucleated RBC (Automated) 0.0 #/100 WBC'S ()?? 08/05/2023 22:38 Abs. NRBC 0.0 k/mm3 ()?? 08/05/2023 22:38 ?? CHEM GENERAL Sodium 143 mmol/L ()?? 08/05/2023 22:38 Potassium 4.4 mmol/L ()?? 08/05/2023 22:38 Chloride 100 mmol/L ()?? 08/05/2023 22:38 Bicarbonate Level 25 mmol/L ()?? 08/05/2023 22:38 Anion Gap 18 (High)?? 08/05/2023 22:38 Glucose Level 92 mg/dL ()?? 08/05/2023 22:38 Glucose, POC 82 mg/dL ()?? 08/05/2023 22:30 BUN 7 mg/dL ()?? 08/05/2023 22:38 Creatinine-Blood 0.7 mg/dL ()?? 08/05/2023 22:38 Estimated GFR Creatinine 118 ML/MIN/1.73 M2 ()?? 08/05/2023 22:38 Calcium 9.9 mg/dL ()?? 08/05/2023 22:38 Protein, Total 8.2 Gm/dL ()?? 08/05/2023 22:38 Albumin 5.3 Gm/dL (High)?? 08/05/2023 22:38 AG Ratio 1.8 ()?? 08/05/2023 22:38 Alkaline Phosphatase 91 units/L ()?? 08/05/2023 22:38 Lipase 32 units/L ()?? 08/05/2023 22:38 AST (SGOT) 31 units/L ()?? 08/05/2023 22:38 ALT (SGPT) 15 units/L ()?? 08/05/2023 22:38 Bilirubin, Total 0.7 mg/dL ()?? 08/05/2023 22:38 ?? HEME OTHER Hold Lavender Top SPECIMEN DISCARDED AFTER 24 HOURS. ()?? 08/05/2023 22:38 ?? TOXICOLOGY/TDM Ethanol, Serum or Plasma 285 mg/dL (Abnormal)?? 08/05/2023 22:38 ?? UA/URINALYSIS Appear/Color, Urine COLORLESS ()?? 08/05/2023 23:54 Specific [place], Urine 1.006 ()?? 08/05/2023 23:54 pH, Urine 6.5 ()?? 08/05/2023 23:54 Albumin, Urine TRACE (Abnormal)?? 08/05/2023 23:54 Glucose, Urine NEGATIVE ()?? 08/05/2023 23:54 Ketones, Urine NEGATIVE ()?? 08/05/2023 23:54 Bilirubin, Urine NEGATIVE ()?? 08/05/2023 23:54 Hemoglobin, Urine NEGATIVE ()?? 08/05/2023 23:54 Nitrite, Urine NEGATIVE ()?? 08/05/2023 23:54 Leukocyte, Urine NEGATIVE ()?? 08/05/2023 23:54 Urobilinogen NORMAL mg/dL ()?? 08/05/2023 23:54 WBC's, Urine 1 /HPF ()?? 08/05/2023 23:54 RBC's, Urine <1 /HPF ()?? 08/05/2023 23:54 Squamous Epith 1 /HPF ()?? 08/05/2023 23:54 Mucus SLIGHT /LPF ()?? 08/05/2023 23:54 Hold Urine Culture Testing available 48 hours from time of collection. ()?? 08/05/2023 23:54 ?? VIROLOGY COVID-19 PCR Specimen Source NASAL ()?? 08/05/2023 22:18 COVID-19 PCR Result NEGATIVE ()?? 08/05/2023 22:18 ? Urinalysis Albumin, Urine: TRACE Abnormal (23:54) Appear/Color, Urine: COLORLESS (23:54) Bilirubin, Urine: NEGATIVE (23:54) Glucose, Urine: NEGATIVE (23:54) Hemoglobin, Urine: NEGATIVE (23:54) Hold Urine Culture: Testing available 48 hours from time of collection. (23:54) Ketones, Urine: NEGATIVE (23:54) Leukocyte, Urine: NEGATIVE (23:54) Mucus: SLIGHT (23:54) Nitrite, Urine: NEGATIVE (23:54) pH, Urine: 6.5 (23:54) RBC's, Urine: <1 (23:54) Specific [place], Urine: 1.006 (23:54) Squamous Epith: 1 /HPF (23:54) Urobilinogen: NORMAL (23:54) WBC's, Urine: 1 /HPF (23:54) ?? Microbiology ?? COVID-19 (2019 Novel Coronavirus) PCR?? Completed?? Source: Nasal Body Site: Nose Collected Dt/Tm: 08/05/2023 22:15 Last Updated Dt/Tm: 08/05/2023 23:33 ? Consult note * Dwayne WARD, Ashish Wagoner: PERFORM Event Display: Consultation Note Authored Date: Patient: ??ALLYSSA BEAUCHAMP ? Age:??32 Years?Sex:??Female?:??1990?? Chief Complaint/Reason for Consult Pt coming from home, c/o N/V, intermittent chest pain. Pt says last alcoholic drink was this afternoon Hx: seizures History of Present Illness 32-year-old female with history of alcohol abuse, multiple admissions for withdrawal, who is being seen today for alcohol withdrawal. ?? Alcohol withdrawal: Patient admitted through the ED on 08/05 had been trying to cut back from drinking 2 pints a day, last drink was earlier on the day of admission.?? Previously seen at [facility] given benzodiazepines and discharged had been concerned about increasing withdrawal symptoms and was concerned about seizures so she did come into the ED for evaluation.?? She does have a history of withdrawal seizures, and did get phenobarbital 260 mg while in the ED, and was continuing to be tremulous and did receive an additional 65 mg and was admitted for CIWA protocol. ?? Patient seen at bedside in the ED, multiple episodes??withdrawal in the past, including multiple admissions. ??Here she reported she had been drinking 4-5 double beers as well as at least a pint of vodka a day??and has been trying to cut back over about the past week had been seen in [facility] and was given benzodiazepines and discharge as I do not do withdrawal, has been having more anxiety as well as tremulousness of about the past day or so, and came in for detox.She does report history of withdrawal seizures unclear when her last withdrawal seizure was these have all occurred in context of withdrawal without treatment. ?? In the ED she was slightly tachycardic, blood pressure was in the 120s over 80s range, afebrile,no notable leukocytosis on labs, magnesium was 1.5 lactate 1.3, urine tox was positive for barbiturate, cannabinoids and alcohol, serum alcohol was 285 UA did not show evidence of infection.?? Review of Systems 10-point review of systems was negative except as detailed above. Physical Exam Vitals & Measurements T:??98.5?F?? HR:??98??(Peripheral)?? RR:??18?? BP:??127/88?? SpO2:??100%?? Neuro Exam: General:??Female in bed in NAD ?Mental Status: ?Awake alert interactive attentive, appropriate eye contact and affect,??speaks in complete sentences with appropriate grammar use. ? Cranial nerves: ?CNII: VFFTC ?CNII/III: PEARRL, 4->3mm ou ?CN III/IV/: no noted ptosis, EOMI ?CN V: facial sensation intact bilaterally ?CN VII: symetric eye closure, forehead wrinkle, smile ?CN VIII: Hears finger rub bilaterally ?CN IX, X, XII: no noted dysarthrita ?CN XI: trap/SCM 5/5 ?CN XII: tongue midline ? Motor: ?no noted tremor,??(she had already received phenobarbital??prior to my exam) ? Xxbail-aw-ddcc intact bilaterally ?No pronator drift ? Strength: normal bulk and tone ?Group ?L ?R ?Delt?5/5 ?5/5 ?Bicep ? 5/5? 5/5 ?Tricep ?5/5 ?5/5 ?Wrist extensor?5/5 ?5/5 ?Wrist flexor?5/5 ?5/5 ?Hip flexor?5/5 ?5/5 ?Knee Ext ?5/5 ?5/5 ?Knee Flex?5/5 ?5/5 ?Ankle dorsiflex?5/5 ?5/5 ?Ankle platar flex?5/5 ?5/5 ? Sensory:?Light Touch:??Intact ?? Gait: Not tested ? Reflexes: ?R ?L ?Biceps?2? 2 ?BR?2? 2 ?Knee? 2? 2 ?Ankle?1?1 ?Toes?wd? wd ? Cuevas? neg? neg ? clonus?neg? neg ? Assessment/Plan Assessment:??32-year-old female with history of alcohol abuse, multiple admissions for withdrawal, who is being seen today for alcohol withdrawal. ?? Alcohol withdrawal:?Patient with multiple admissions for alcohol withdrawal being seen today for alcohol withdrawal, last drink??was reportedly yesterday, does have a history of??withdrawal seizures, and this appears to be in the context of untreated withdrawal??at this point there would not be any indication for??antiepileptic medications,??should continue with CIWA scale, please call if she does have a withdrawal seizure. ?? -??No indication for antiepileptic medications at this point ?Thiamine??and folic acid supplement ?CIWA scale, ??? Ativan 2 mg for seizure greater than 5 minutes ?? Please call neurology with questions. ? Problem List/Past Medical History Ongoing Alcohol use disorder, severe, dependence anxiety GERD without esophagitis PCOS (polycystic ovarian syndrome) Severe recurrent major depression Procedure/Surgical History No qualifying data available. Home Medications Escitalopram: 5 mg = 1 tablet, By Mouth, Daily in AM Folic Acid: 1 mg, By Mouth, Daily HydrOXYzine: 50 mg = 1 capsule, By Mouth, 2 times a day, PRN (Anxiety) Multivitamin: 1 tablet, By Mouth, Daily Naltrexone: 50 mg = 1 tablet, By Mouth, Daily Thiamine: 100 mg, By Mouth, 2 times a day Trazodone: TAKE ONE AND ONE HALF (1.5) TABLETS BY MOUTH AT BEDTIME Allergies NKA No Known Medication Allergies Social History Alcohol Use: Current. Frequency: Daily. Substance Abuse Use: pt refuses to discuss. Tobacco Use: Never (less than 100 in lifetime). Family History No family history recorded. Note * Ana Cristina WARD, Yusuf Card: PERFORM, MODIFY, MODIFY Event Display: Discharge/Transfer Note Hospital Authored Date: [id number] Patient: ??ALLYSSA BEAUCHAMP ? Age:??32 Years?Sex:??Female?:??1990?? Patient Information Discharge Location: [facility] Primary Care Physician: Mike Franks MD Admit Date/Time: 08/06/23 02:50 Discharge Disposition Discharge Disposition: ?? Discharge Diagnosis Alcohol??withdrawal syndrome Hypomagnesemia ?? _ Discharge Medications Escitalopram (escitalopram 5 mg oral tablet)?1?tab(s)?5?Milligram?By Mouth?Daily in AM Folic Acid (folic acid 1 mg oral tablet)?1?Milligram?By Mouth?Daily HydrOXYzine (hydrOXYzine pamoate 50 mg oral capsule)?1?capsule?50?Milligram?By Mouth?2 times a day?as needed?Anxiety Magnesium Oxide (magnesium oxide 400 mg oral tablet)?400?Milligram?By Mouth?2 times a day?for 2?Days Multivitamin (multivitamin Multiple Vitamins oral tablet)?1?tab(s)?By Mouth?Daily?for 30?Days Naltrexone (naltrexone 50 mg oral tablet)?1?tab(s)?50?Milligram?By Mouth?Daily?for 30?Days Pyridoxine (pyridoxine 50 mg oral tablet)?50?Milligram?By Mouth?Daily?for 30?Days Thiamine (thiamine 100 mg oral tablet)?100?Milligram?By Mouth?2 times a day Trazodone (traZODone 100 mg oral tablet)?TAKE ONE AND ONE HALF (1.5) TABLETS BY MOUTH AT BEDTIME ? Medications Started Magnesium oxide, pyridoxine Allergies Allergies ?(Active and Proposed Allergies Only) No Known Medication Allergies? (Severity: Unknown severity, Onset: Unknown) NKA? (Severity: Unknown severity, Onset: Unknown) ? PCP Follow-Up/Heads-Up PCP f/u in 1week to rpt mg levels and refer to alcohol programmes Hospital Course ??32-year-old female with PMH of alcohol use disorder with multiple admissions for alcohol withdrawal came to the ED with alcohol withdrawal-like symptoms. ?? Patient's medical chart reviewed, seen and examined at bedside.?? Patient was recently admitted anddischarged on 06/30 for alcohol withdrawal symptoms.?? Patient states that she is trying to cut downon her drinking and only drank 2 pints a day.?? Patient states her last drink was yesterday.?? Complains of feeling shaky, anxious, tremulous.?? Also complains of feeling some palpitations. ??She cutdown on her drinking for the last 1 week and already visited [facility] where she received oral benzodiazepines and discharged.?? Patient was very concerned that she might go into withdrawal i wong and so came to the ED for further evaluation.?? Endorses having some nausea but no vomiting.?? Able to tolerate p.o. denies having any fevers, chills, cough, sore throat, runny nose, chest pain, shortness of breath, abdominal pain, constipation, diarrhea, dysuria, hematuria, hematochezia/melena. ?? In the ED patient remains afebrile, HR 99, RR 18, BP 126/84, saturation 100% on room air.?? No leukocytosis WBC of 5.8, Hgb 14.2, platelets 181, electrolytes normal, BUN/creatinine 7/0.7, blood glucose 92, blood alcohol level 285, C-19 negative, UA negative.?? Patient received 1 L fluid bolus, phenobarbital to 60 mg x 1 and 65 mg x 2.?? Patient was placed on CIWA protocol and will be admitted to inpatient medicine service for further management Objective Assessment and Plan 32-year-old female with PMH of alcohol use disorder with multiple admissions for alcohol withdrawalcame to the ED with alcohol withdrawal-like symptoms. In the ED patient remains afebrile, HR 99, RR 18, BP 126/84, saturation 100% on room air.?? No leukocytosis WBC of 5.8, Hgb 14.2, platelets 181, electrolytes normal, BUN/creatinine 7/0.7, blood glucose 92, blood alcohol level 285, C-19 negative, UA negative.?? Patient received 1 L fluid bolus, phenobarbital to 60 mg x 1 and 65 mg x 2.?? Patient was placed on [facility] protocol and will be admitted to inpatient medicine service for further management ? Alcohol use disorder, severe, dependence with seizures?(F10.20) She was given Naltrexone during recent ER visit, she has at home not yet started, advised to start SENTHIL??per recommendations continue Thiamine/folic acid/multivitamin/pyridoxine Tolerated regular diet. Urine tox positive for barbiturates, alcohol??and cannabis ?? Neurology recommendations -??No indication for antiepileptic medications at this point ?Thiamine??and folic acid supplement ?? Anxiety and depression Continue with??escitalopram 5 mg daily,??trazodone 150 mg daily at bedtime Hydroxyzine as needed ?? Hypomagnesemia Mg 1.5, start mag oxide, rpt mg levels in 1 week by pcp. ?? Pt is clinically and hemodynamically stable and better at discharge. ? Vital Signs?? Temperature: 98.5 DegF (08/06/23 09:30:00) Temperature Route: Oral (08/06/23 09:30:00) Pulse Rate:??98 bpm??High (08/06/23 09:30:00) Respiratory Rate: 18 br/min (08/06/23 09:30:00) Systolic Blood Pressure: 127 mm Hg (08/06/23 09:30:00) Diastolic Blood Pressure:??88 mm Hg??High (08/06/23 09:30:00) Blood pressure sites: Arm, right (08/06/23 09:30:00) Mean Arterial Pressure: 101 mm Hg (08/06/23 09:30:00) Pulse Pressure: 39 mm Hg (08/06/23 09:30:00) Oxygen Saturation: 100 % (08/06/23 09:30:00) Mode of Delivery (Oxygen): Room air (08/06/23 09:30:00) Early Warning Score: 0 (08/06/23 09:31:10) ? . Physical Exam Gen- not in acute distress,??anxious, slightly shaky speaking in full sentences. HEENT- Normocephalic, Atraumatic, No pallor, icterus Neck-supple, no JVD Heart-S1S2(+),??regular, no murmurs. lungs- Clear, b/l air entry, no wheezing. Abdomen-soft, nontender,nondistended,??bowel sounds present, No guarding. Extremities-pulses palpable. No pedal edema. No calf tenderness. Neurological- AAO??3. No gross focal neurological deficits noted. Psychiatric-patient???s mood is stable Pending Results Add On Lab Order ordered on 08/05/2023 Electrolytes ordered on 08/06/2023 Magnesium Level ordered on 08/06/2023 Magnesium Level ordered on 08/07/2023 Phosphorus Level ordered on 08/06/2023 Home Health Face to Face ^[email or web address] Results Discharge Labs BLOOD COUNT & DIFF WBC 7.5 k/mm3 ()?? 08/06/2023 08:12 RBC 4.36 m/mm3 ()?? 08/06/2023 08:12 Hgb 11.7 Gm/dL ()?? 08/06/2023 08:12 Hct 35.8 % ()?? 08/06/2023 08:12 MCV 82.1 femtoliters ()?? 08/06/2023 08:12 MCH 26.8 pg (Low)?? 08/06/2023 08:12 MCHC 32.7 g/dL (Low)?? 08/06/2023 08:12 Platelet Count 273 k/mm3 ()?? 08/06/2023 08:12 RDW-SD 46.4 femtoliters ()?? 08/06/2023 08:12 MPV 9.4 femtoliters ()?? 08/06/2023 08:12 Nucleated RBC (Automated) 0.0 #/100 WBC'S ()?? 08/06/2023 08:12 Abs. NRBC 0.0 k/mm3 ()?? 08/06/2023 08:12 Abs. Neut 5.3 k/mm3 ()?? 08/06/2023 08:12 Abs. Lymph 1.6 k/mm3 ()?? 08/06/2023 08:12 Abs. [place] 0.4 k/mm3 ()?? 08/06/2023 08:12 Abs. Eo 0.0 k/mm3 ()?? 08/06/2023 08:12 Abs. Baso 0.0 k/mm3 ()?? 08/06/2023 08:12 Neut % 71.5 % ()?? 08/06/2023 08:12 Lymph % 21.7 % ()?? 08/06/2023 08:12 [place] % 5.6 % ()?? 08/06/2023 08:12 Eos % 0.5 % ()?? 08/06/2023 08:12 Baso % 0.4 % ()?? 08/06/2023 08:12 Imm Gran 0.3 % ()?? 08/06/2023 08:12 Abs. Imm Gran 0.0 k/mm3 ()?? 08/06/2023 08:12 ?? CHEM GENERAL Sodium 140 mmol/L ()?? 08/06/2023 08:12 Potassium 4.0 mmol/L ()?? 08/06/2023 08:12 Chloride 103 mmol/L ()?? 08/06/2023 08:12 Bicarbonate Level 23 mmol/L ()?? 08/06/2023 08:12 Anion Gap 14 ()?? 08/06/2023 08:12 Glucose Level 78 mg/dL ()?? 08/06/2023 08:12 Glucose, POC 82 mg/dL ()?? 08/05/2023 22:30 BUN 8 mg/dL ()?? 08/06/2023 08:12 Creatinine-Blood 0.7 mg/dL ()?? 08/06/2023 08:12 Estimated GFR Creatinine 118 ML/MIN/1.73 M2 ()?? 08/06/2023 08:12 Calcium 8.7 mg/dL ()?? 08/06/2023 08:12 Phosphorus 3.8 mg/dL ()?? 08/06/2023 08:12 Magnesium 1.5 mg/dL (Low)?? 08/06/2023 08:12 Protein, Total 8.2 Gm/dL ()?? 08/05/2023 22:38 Albumin 5.3 Gm/dL (High)?? 08/05/2023 22:38 AG Ratio 1.8 ()?? 08/05/2023 22:38 Alkaline Phosphatase 91 units/L ()?? 08/05/2023 22:38 Lipase 32 units/L ()?? 08/05/2023 22:38 AST (SGOT) 31 units/L ()?? 08/05/2023 22:38 ALT (SGPT) 15 units/L ()?? 08/05/2023 22:38 Bilirubin, Total 0.7 mg/dL ()?? 08/05/2023 22:38 Lactate 1.3 mmol/L ()?? 08/06/2023 08:12 ?? HEME OTHER Hold Lavender Top SPECIMEN DISCARDED AFTER 24 HOURS. ()?? 08/05/2023 22:38 ? TOXICOLOGY/TDM Ethanol, Serum or Plasma 285 mg/dL (Abnormal)?? 08/05/2023 22:38 Barbiturate Screen, Urine POSITIVE (Abnormal)?? 08/06/2023 10:08 Cannabinoid Screen, Urine POSITIVE (Abnormal)?? 08/06/2023 10:08 Cocaine Metabolite Screen, Urine NONE DETECTED ()?? 08/06/2023 10:08 Benzodiazepine Screen, Urine NONE DETECTED ()?? 08/06/2023 10:08 Urine Alcohol POSITIVE (Abnormal)?? 08/06/2023 10:08 Fentanyl Screen, Urine Result NONE DETECTED ()?? 08/06/2023 10:08 ? UA/URINALYSIS Appear/Color, Urine COLORLESS ()?? 08/05/2023 23:54 Specific [place], Urine 1.006 ()?? 08/05/2023 23:54 pH, Urine 6.5 ()?? 08/05/2023 23:54 Albumin, Urine TRACE (Abnormal)?? 08/05/2023 23:54 Glucose, Urine NEGATIVE ()?? 08/05/2023 23:54 Ketones, Urine NEGATIVE ()?? 08/05/2023 23:54 Bilirubin, Urine NEGATIVE ()?? 08/05/2023 23:54 Hemoglobin, Urine NEGATIVE ()?? 08/05/2023 23:54 Nitrite, Urine NEGATIVE ()?? 08/05/2023 23:54 Leukocyte, Urine NEGATIVE ()?? 08/05/2023 23:54 Urobilinogen NORMAL mg/dL ()?? 08/05/2023 23:54 WBC's, Urine 1 /HPF ()?? 08/05/2023 23:54 RBC's, Urine <1 /HPF ()?? 08/05/2023 23:54 Squamous Epith 1 /HPF ()?? 08/05/2023 23:54 Mucus SLIGHT /LPF ()?? 08/05/2023 23:54 Hold Urine Culture Testing available 48 hours from time of collection. ()?? 08/05/2023 23:54 ?? VIROLOGY COVID-19 PCR Specimen Source NASAL ()?? 08/05/2023 22:18 COVID-19 PCR Result NEGATIVE ()?? 08/05/2023 22:18 ? 25_ minutes spent on discharge Patient Care team information Care Team Personnel Name: Radha Vasquez RN Position: [facility] RN Supv Member Role: Primary Care Nurse Name: Debbie Braun RN Position: [facility] RN Member Role: Primary Care Nurse Name: Mike Franks MD Position: [facility] Outreach Member Role: PCP Address: Address: [address] [place] [address] Mike Fr[place], [place] [address] Name: Liliam Zhang RN Position: [facility] RN Member Role: Primary Care Nurse Name: Lexi Rodriguez RN Position: [facility] RN Member Role: Primary Care Nurse Name: Christy Joseph RN Position: [facility] RN Member Role: Primary Care Nurse Name: Yanely Hollis RN Position: [facility] RN Member Role: Primary Care Nurse Name: Hiwot Yepez RN Position: [facility] RN Member Role: Primary Care Nurse Name: Jeri Simmons RN Position: [facility] RN Member Role: Primary Care Nurse Name: Kailey Valerio Position: [facility] RN Member Role: Primary Care Nurse Name: Gladys Ramirez MD Position: [facility] Physician - Endocrinology Member Role: [employer] Consult[employer] Physician Name: Lorena Pascual RN Position: [facility] RN Member Role: Primary Care Nurse Name: Lashonda White RN Position: [facility] RN Member Role: Primary Care Nurse Name: Sharon Agosto LPN Position: [facility] RN Member Role: Primary Care Nurse Name: Elvi Olsen RN Position: [facility] RN Member Role: Primary Care Nurse Name: Keely Alcazar RN Position: [facility] RN Member Role: Primary Care Nurse Name: Jozef Saldana RN Position: [facility] RN Member Role: Primary Care Nurse Name: Norah Valdovinos RN Position: [facility] RN Supv Member Role: Primary Care Nurse Name: Liane Lee RN Position: [facility] RN Member Role: Primary Care Nurse Name: Nevin Rosenberg RN Position: [facility] RN Member Role: Primary Care Nurse Name: Joann Drummond RN Position: [facility] RN Member Role: Primary Care Nurse Name: Suzette Goodrich RN Position: [facility] RN Member Role: Primary Care Nurse Name: Saskia Roach RN Position: [facility] RN Member Role: Primary Care Nurse Name: Carla Hdz RN Position: [facility] Medical Safety Director Member Role: Primary Care Nurse Name: Kelsey Murphy RN Position: [facility] RN Member Role: Primary Care Nurse Name: Joseph Murdock RN Position: [facility] RN Member Role: Primary Care Nurse Name: Alejandra Justin Position: [facility] RN Member Role: Primary Care Nurse Name: Lien Mckeon RN Position: [facility] RN Member Role: Primary Care Nurse Name: Rocío FOSTER Attending Position: [facility] ED Medicine MD Name: Rosi Sanchez Position: [facility] ED TA [facility] Name: Lynette Braga RN Position: [facility] ED RN W/OE and Tasks Member Role: Patient Care Provider Care Team Related Persons Name: FIDEL BEAUCHAMP Address: [address] [address] Name: NAYELI ARRIAGA
[2023-12-01 16:55] LABS: Appearance Urine Clear; Color Urine Yellow; Glucose Urine UA Negative (Negative); Leukocyte Esterase Urine Negative (Negative); Nitrite Urine Negative (Negative); Specific Gravity - Urine <= 1.005 (1.005-1.025); Urine Blood Negative (Negative); Urine Ketones Negative (Negative); Urine Protein Negative (Neg-Trace)
[2023-12-01 17:03] LABS: Amphetamine Screen Urine Not Detected (Not Detect); Barbiturates, Urine Not Detected (Not Detect); Benzodiazepines Screen Urine Not Detected (Not Detect); Cannabinoid Screen Urine POSITIVE (Not Detect); Cocaine Screen Urine Not Detected (Not Detect); Fentanyl, urine Not Detected (Not Detect); Opiate Screen Urine Not Detected (Not Detect); Phencyclidine Screen Urine Not Detected (Not Detect)
[2023-12-01 17:14] LABS: COVID-19 Test Negative (Negative); IDNOW Serial# 9DB6401D
[2023-12-01 17:20] VITALS: RESP 18
--- NOTE | 2023-12-01 17:23 | PC.NURSE ---
Kecia was BIBA after her mother called in the context of Kecia making SI statements while intoxicated. Kecia continued to make statements I wish I was on arrival and kept appologizing for being a piece of shit . Swelling to R hand and wrist d/t a fall. Imaging pending. Labs pending. Kecia in good behavioral control and cooperative with changeover. Currently asking for snacks and juice.
--- NOTE | 2023-12-01 17:27 | PC.NURSE ---
Tech attempted blood draw x2 and was unsuccessful. Will attempt again after PT has had some fluids.
[2023-12-01 17:28] LABS: UPreg QC Valid YES; Urine Pregnancy NEGATIVE (NEGATIVE)
[2023-12-01 17:32] LABS: Bacteria Urine None Seen (None Seen); Hyaline Casts Urine 0-2 /LPF (0-2); RBC Urine 0-2 /HPF (0-2); Squamous Epithelial Cell Urine 0-2 /HPF (0-2); WBC Urine 0-5 /HPF (0-5)
[2023-12-01] MEDS: LORazepam 1 MG TABLET 2 MG PO ×2 (18:05→20:23)
--- NOTE | 2023-12-01 18:06 | PC.NURSE ---
Lorazepam 2mg PO given for anxiety and withdrawal symptoms.
[2023-12-01 18:59] LABS: MANUAL DIFF FLAG NO
[2023-12-01 19:06] LABS: Basophils Absolute Auto 0.1 X10*3/uL (0.0-0.2); Basophils Percent Auto 0.7 % (0-2); Hematocrit 43.3 % (37.0-47.0); Hemoglobin 14.1 g/dl (12.0-16.0); Imm Gran Abs Auto 0.02 X10*3/uL (0.00-0.03); Imm Gran Pct Auto 0.3 % (0.0-0.4); Lymphocytes Absolute Auto 2.8 X10*3/uL (1.2-4.9); Lymphocytes Percent Auto 37.9 % (20-40); Mean Corpuscular HGB Conc 32.6 g/dl (31.0-35.0); Mean Corpuscular Hemoglobin 24.7 pg (27.0-33.0); Mean Corpuscular Volume 75.7 fL (80.0-98.0); Mean Platelet Volume 9.3 fL (9.4-12.3); Monocytes Absolute Auto 0.3 X10*3/uL (0.1-1.2); Monocytes Percent Auto 3.5 % (2-11); Neutrophils Absolute Auto 4.3 x10*3/uL (2.0-8.3); Neutrophils Percent Auto 57.6 % (45-73); Platelet Count 343 X10*3/uL (160-400); Red Blood Count 5.72 X10*6/uL (4.20-5.50); Red Cell Distribution Width 14.2 % (11.0-16.0); White Blood Count 7.4 X10*3/uL (4.8-10.8)
[2023-12-01 19:16] LABS: Alanine Aminotransferase 12 U/L (0-31); Albumin Level 5.1 g/dL (3.5-5.0); Alkaline Phosphatase 82 U/L (39-117); Anion Gap 17 (12-20); Aspartate Amino Transferase 27 U/L (5-31); Bilirubin Total 0.5 mg/dL (0.0-1.0); Blood Urea Nitrogen 7 mg/dL (9-16); Calcium 9.5 mg/dL (8.4-10.2); Carbon Dioxide 24 mmol/L (22-29); Chloride 106 mmol/L (96-108); Creatinine Clr Calc Pharmacy 106.3; Estimated Glomerular Filt Rate > 60; Ethanol 359 mg/dL; Glucose Random 101 mg/dL (60-115); Potassium 3.9 mmol/L (3.3-5.1); Sodium 143 mmol/L (135-145); Total Protein 9.4 g/dL (6.5-8.0)
--- NOTE | 2023-12-01 19:53 | MHC.CARE ---
CARE Team speaks with pt at her request, as she is becoming irritable at the nurses station, waiting for CARE Team. T/w explains that pt cannot be seen without BAL. She initially reports that she has not been drinking, but then states that she drank 4 natty daddies today because she is trying to titrate herself down and start a new job tomorrow. Pt is shaking significantly, is very anxious, but engages with t/w. She is very worried about missing her new job. Pt expresses that she really want to get sober and stay sober, but is feeling hopeless and helpless about being able to manage her emotions without drinking. She reports that her mother and father were both alcoholics when she was growing up, and her father gave her her first drink at a very young age. Pt is initially demanding to home so she can make it to work tomorrow, but changes her mind after talking, states that she needs to get detoxed. She reported having a seizure yesterday/this morning. Plan is for pt to be assessed for risk by the CARE Team once medically cleared.
--- NOTE | 2023-12-01 19:58 | PC.NURSE ---
LIZZETH 25. Provider aware. moved pt to main ED bed 6. seizure precautions in place, pt placed on continuous cardiac monitoring. report and handoff given to charge nurseGoldie
[2023-12-01 20:07] LABS: Acetaminophen LAB < 3 mcg/mL (<30); Salicylate < 5.0 mg/dL (15-30)
[2023-12-01 20:15] VITALS: BP 132/92; PULSE 112; RESP 18; TEMP 36.5; O2SAT 98
--- NOTE | 2023-12-01 20:15 | PC.NURSE ---
Assumed care of pt. Assessment completed. Pt currently demonstrating tremors only when not speaking. Spoke with provider about possibly moving pt back to Pod after receiving additional dose of Ativan per orders. Charge aware.
--- NOTE | 2023-12-01 20:16 | MHC.EDTECH ---
This tech took over care of patient at 1900.hourly rounds and vitals completed,1-1 sitter at bedside for safety
[2023-12-01] MEDS: Ibuprofen 600 MG TABLET PO (20:28)
[2023-12-01] MEDS: chlordiazePOXIDE HCl 25 MG CAPSULE 100 MG PO (23:23)
[2023-12-01] MEDS: traZODone HCL 50 MG TABLET 150 MG PO (23:25)
[2023-12-02 01:00] VITALS: BP 106/90; PULSE 109; RESP 18; O2SAT 97
--- NOTE | 2023-12-02 03:00 | PC.NURSE ---
Addendum entered by Eliane Abrams Jaclyn 12/02/23 06:46: CIWA 4 Original Note: Late entry CIWA 13 . Pt medicated as per JAN. requested trazodone. VSS. PT sleeping with even unlabored respirations. Plan of care ongoing
--- NOTE | 2023-12-02 10:52 | PC.NURSE ---
Assumed care of patient at 1045, per CARE team, patient can be d/c once CARE talks with pts mother
[2023-12-02] MEDS: LORazepam 1 MG TABLET 2 MG PO (11:36)
[2023-12-02 11:38] VITALS: BP 147/99; PULSE 90; RESP 19; TEMP 37.2; O2SAT 95
--- NOTE | 2023-12-02 12:15 | MHC.CARE ---
Patient evaluated by the CARE Team, she does not require an inpatient psychiatric admission at this time. See assessment for details. ED provider, Pascual Pereira updated and in agreement with plan to discharge.
--- NOTE | 2023-12-02 15:13 | MHC.CARE ---
RAD Team faxed a [facility] follow up for to [facility] for this pt, follow up tomorrow (12/03) if necessary
--- NOTE | 2023-12-02 15:15 | MHC.RECOVRN ---
creel hand met with patient briefly at her bedside in EDBH-3 prior to her DC at the request of CARE Team. Patient A+Ox3- pleasant, sitting up and conversing appropriately. She expressed feeling very disappointed and embarrassed for her relapse . She reports that she had been doing very well with her recovery up until recently. She admits she started drinking again for liquid courage . She states she wanted to talk to a man she found attractive, but was too nervous to pursue him so she drank tall cans of Natty Daddy. She reports I went a little overboard. I'm so embarrassed. I completely embarrassed myself. I got sloppy and I even fell. Now my hand hurts. Patient states she wants to completely abstain from alcohol and learn how to cope with her emotions/depression/anxiety in a healthier way. She is looking forward to starting a new job and hopes to find a mental health support team that can work with her new schedule. She's interested in outpatient recovery support groups and IOP. RN provided her with resources- including [facility] info if she is interested in seeking MAT. Patient to be discharged. Discussed with Jen George APRN.
== END 2023-12-02 12:25 | disposition home or self-care (01) ==
PROVIDERS: Physician Assistant; Emergency Provider Emergency Medicine
DX: F33.1 Major depressive disorder, recurrent, moderate (principal); F10.129 Alcohol abuse with intoxication, unspecified; Y90.8 Blood alcohol level of 240 mg/100 ml or more; R45.851 Suicidal ideations; M25.531 Pain in right wrist; R51.9 Headache, unspecified; Z11.52 Encounter for screening for COVID-19; Z20.828 Contact with and (suspected) exposure to other viral communicable diseases; Z79.899 Other long term (current) drug therapy
CPT/HCPCS: 70450; 73110; 73130; 80053; 80143; 80179; 80307; 81001; 81025; 85025; 87635; 99285; S9485

== ENCOUNTER 2023-12-02 21:56 | Emergency (ER) | payer OTHER, SELFPAY ==
[2023-12-02 22:08] VITALS: BP 106/62; PULSE 150
[2023-12-02 22:12] VITALS: BP 129/86; PULSE 128; RESP 15; TEMP 36.7; O2SAT 99; BMI 34.4
[2023-12-02 22:38] VITALS: BP 129/86; PULSE 126; PULSE 128; RESP 21; O2SAT 97
--- NOTE | 2023-12-02 22:42 | ED_ITS ---
HPI - General Adult General Chief complaint: Syncope Stated complaint: weakness Time Seen by Provider: 12/02/23 22:15 Source: patient Mode of arrival: EMS Limitations: no limitations History of Present Illness HPI narrative: Patient alcoholic , just discharged earlier today came back as she had wine prior to arrival and did not drink all day was feeling in withdrawal , felt dizzy lightheaded fell/slump down hitting her head to the sink without significant injury ambulatory in the ER no loss of consciousness no seizures patient vomited once prior to arrival feels sick to her stomach Related Data Home Medications Medication Instructions Recorded Confirmed trazodone 50 mg tablet 150 mg PO BEDTIME PRN insomnia 06/02/23 12/01/23 Allergies Allergy/AdvReac Type Severity Reaction Status Date / Time No Known Allergies Allergy Verified 08/04/23 17:08 [No Known Allergies*] Review of Systems 2 Review of Systems: Yes all other systems are reviewed and are negative PMFSH Past Medical History Onset Date is defined in the Problem List Problems that require an onset date and time if occurred within 24 hrs of arrival to the ED Aortic Dissection and Rupture; Neurologic impairment; Cardiopulmonary Arrest; Endotracheal Intubation; Insertion or Replacement of Mechanical Circulatory Assist Device Medical History Chronic post-traumatic stress disorder (PTSD) MDD (major depressive disorder), recurrent episode, severe Bulimia SANDY (generalized anxiety disorder) Panic attack MDD (major depressive disorder), recurrent episode, moderate Alcohol use disorder Alcohol withdrawal delirium Alcohol abuse with withdrawal delirium Depression Anxiety Alcohol withdrawal seizure Alcoholism Family History Family History Brother Substance abuse Social History Social History Household Members: Family Housing: Apartment Do you presently have visiting nurse or other home services: No Alcohol intake: current Alcohol intake frequency: 3 or more drinks per day Alcohol type: beer and hard liquor Comment: patient refused alarms and camera, educated on asking for assistnace Patient Tobacco Use Status: Never used Tobacco Smoked in Last 30 Days: No e-Cigarette/Vaping Use: Never Used Second Hand Smoke Exposure: No Use of substances other than those prescribed or required for medical reasons: Yes Substance Use Type: Marijuana Advance Directives: No Advance Directives Information Provided: No Patient : No service: No Current occupational status: unemployed Sexual orientation: Straight/Heterosexual Physical Exam ED Vital Signs: Vital Signs - 24 hr 12/02/23 22:12 12/02/23 22:38 12/02/23 22:38 Temperature 98.0 F Pulse Rate 128 H Pulse Rate [Monitor] 126 H Respiratory Rate 15 Blood Pressure 129/86 Pulse Oximetry 99 97 Oxygen Delivery Method Room Air Room Air 12/02/23 22:38 Temperature Pulse Rate 128 H Pulse Rate [Monitor] Respiratory Rate 21 H Blood Pressure 129/86 Pulse Oximetry 97 Oxygen Delivery Method Room Air BMI result Body Mass Index 34.4 Appearance: Alert. Oriented X3. No acute distress. etoh + Eyes: PERRLA, No Nystagmus ENT: Pharynx normal. Oral Mucosa moist AT NC Neck: Normal inspection. Neck supple. CVS: Normal heart rate and rhythm. Pulses normal. Respiratory: No respiratory distress. Equal air entry bilateral, no wheezing/rales/rhonchi Abdomen: Soft and nontender. Bowel sounds are present, no mass palpable, no CVA tenderness Skin: Skin warm and dry. Normal skin color. Normal skin turgor. Extremities: No lower extremity edema. No calf tenderness Neuro: Oriented X 3. No motor deficit. No sensory deficit.No cerebellar signs , cranial nerves II-XII intact Medications Administered Discontinued Medications Generic Name Dose Route Start Last Admin Trade Name Freq PRN Reason Stop Dose Admin Famotidine 20 mg 12/02/23 22:48 12/02/23 23:03 Famotidine/Pf 20 Mg/2 Ml Vial IVPUSH 12/02/23 22:49 20 mg ONCE ONE Administration Sodium Chloride 1,000 mls @ 999 mls/hr 12/02/23 22:48 12/02/23 23:10 Ns IV 12/02/23 23:48 999 mls/hr .Q1H1M ONE Administration Lorazepam 2 mg 12/02/23 22:49 12/02/23 23:03 Lorazepam 1 Mg Tablet PO 12/02/23 22:50 2 mg ONCE ONE Administration Ondansetron HCl 4 mg 12/02/23 22:48 12/02/23 23:03 Ondansetron Hcl 4 Mg/2 Ml Vial IVPUSH 12/02/23 22:49 4 mg ONCE ONE Administration Medical Decision Making Medical Decision Making [facility] Narrative: Patient is here alcohol abuse intoxicated with EtOH level of 349 with frequent ED visits for the same get care team involved for detox placement if patient agrees 1 sober Lab Data [facility] Lab Attestation statement: I reviewed the patient's lab results. 12/02/23 22:41 12/02/23 22:41 Labs: Lab Results 12/02/23 Range/Units 22:41 WBC 8.2 (4.8-10.8) X10*3/uL RBC 5.16 (4.20-5.50) X10*6/uL Hgb 12.9 (12.0-16.0) g/dl Hct 38.6 (37.0-47.0) % MCV 74.8 L (80.0-98.0) fL MCH 25.0 L (27.0-33.0) pg MCHC 33.4 (31.0-35.0) g/dl RDW 14.0 (11.0-16.0) % Plt Count 285 (160-400) X10*3/uL MPV 9.2 L (9.4-12.3) fL Immature Gran % (Auto) 0.2 (0.0-0.4) % Neut % (Auto) 56.8 (45-73) % Lymph % (Auto) 32.1 (20-40) % [place] % (Auto) 8.3 (2-11) % Eos % (Auto) 2.0 (0-4) % Baso % (Auto) 0.6 (0-2) % Lymph # (Auto) 2.6 (1.2-4.9) X10*3/uL [place] # (Auto) 0.7 (0.1-1.2) X10*3/uL Eos # (Auto) 0.2 (0.0-0.4) X10*3/uL Baso # (Auto) 0.1 (0.0-0.2) X10*3/uL Abs Immat Gran (auto) 0.02 (0.00-0.03) X10*3/uL Absolute Neuts (auto) 4.6 (2.0-8.3) x10*3/uL Absolute Nucleated RBC 0.000 (0.0-0.012) X10*3/uL Nucleated RBC % (auto) 0.0 (0.0-0.2) /100WBC Sodium 140 (135-145) mmol/L Potassium 4.0 (3.3-5.1) mmol/L Chloride 105 (96-108) mmol/L Carbon Dioxide 22 (22-29) mmol/L Anion Gap 17 (12-20) BUN 6 L (9-16) mg/dL Creatinine 0.84 (0.5-1.4) mg/dL Estim Creat Clear Calc 100.1 Estimated GFR > 60 Random Glucose 91 (60-115) mg/dL Calcium 9.0 (8.4-10.2) mg/dL Total Bilirubin 0.7 (0.0-1.0) mg/dL AST 27 (5-31) U/L ALT 11 (0-31) U/L Alkaline Phosphatase 82 (39-117) U/L Total Protein 8.3 H (6.5-8.0) g/dL Albumin 4.5 (3.5-5.0) g/dL Urine Color Yellow Urine Appearance Clear Urine pH 5.5 (5.0-9.0) Ur Specific [place] <= 1.005 (1.005-1.025) Urine Protein Negative (Neg-Trace) mg/dL Urine Glucose (UA) Negative (Negative) mg/dL Urine Ketones Negative (Negative) mg/dL Urine Blood Negative (Negative) Urine Nitrite Negative (Negative) Ur Leukocyte Esterase Negative (Negative) Urine Opiates Screen Not Detected (Not Detect) Urine Fentanyl Screen Not Detected (Not Detect) Ur Barbiturates Screen Not Detected (Not Detect) Ur Phencyclidine Scrn Not Detected (Not Detect) Ur Amphetamines Screen Not Detected (Not Detect) U Benzodiazepines Scrn POSITIVE H (Not Detect) Urine Cocaine Screen Not Detected (Not Detect) U Marijuana (THC) Screen POSITIVE H (Not Detect) Ethyl Alcohol 349 H* mg/dL Discharge Plan Discharge Clinical Impression: Alcohol use disorder, Alcohol intoxication Patient Disposition: Still a Patient Prescriptions: No Action trazodone 50 mg tablet 150 mg PO BEDTIME PRN (Reason: insomnia)
[2023-12-02 22:52] LABS: Basophils Absolute Auto 0.1 X10*3/uL (0.0-0.2); Basophils Percent Auto 0.6 % (0-2); Eosinophils Absolute Auto 0.2 X10*3/uL (0.0-0.4); Hematocrit 38.6 % (37.0-47.0); Hemoglobin 12.9 g/dl (12.0-16.0); Imm Gran Abs Auto 0.02 X10*3/uL (0.00-0.03); Imm Gran Pct Auto 0.2 % (0.0-0.4); Lymphocytes Absolute Auto 2.6 X10*3/uL (1.2-4.9); Lymphocytes Percent Auto 32.1 % (20-40); MANUAL DIFF FLAG NO; Mean Corpuscular HGB Conc 33.4 g/dl (31.0-35.0); Mean Corpuscular Volume 74.8 fL (80.0-98.0); Mean Platelet Volume 9.2 fL (9.4-12.3); Monocytes Absolute Auto 0.7 X10*3/uL (0.1-1.2); Monocytes Percent Auto 8.3 % (2-11); Neutrophils Absolute Auto 4.6 x10*3/uL (2.0-8.3); Neutrophils Percent Auto 56.8 % (45-73); Platelet Count 285 X10*3/uL (160-400); Red Blood Count 5.16 X10*6/uL (4.20-5.50); White Blood Count 8.2 X10*3/uL (4.8-10.8)
[2023-12-02 22:53] LABS: Appearance Urine Clear; Color Urine Yellow; Glucose Urine UA Negative (Negative); Leukocyte Esterase Urine Negative (Negative); Nitrite Urine Negative (Negative); PH 5.5 (5.0-9.0); Specific Gravity - Urine <= 1.005 (1.005-1.025); Urine Blood Negative (Negative); Urine Ketones Negative (Negative); Urine Protein Negative (Neg-Trace)
[2023-12-02 23:00] LABS: Amphetamine Screen Urine Not Detected (Not Detect); Barbiturates, Urine Not Detected (Not Detect); Benzodiazepines Screen Urine POSITIVE (Not Detect); Cannabinoid Screen Urine POSITIVE (Not Detect); Cocaine Screen Urine Not Detected (Not Detect); Fentanyl, urine Not Detected (Not Detect); Opiate Screen Urine Not Detected (Not Detect); Phencyclidine Screen Urine Not Detected (Not Detect)
[2023-12-02] MEDS: LORazepam 1 MG TABLET 2 MG PO (23:03)
[2023-12-02] MEDS: ondansetron HCL 4 MG/2 ML VIAL IVPUSH (23:03)
[2023-12-02] MEDS: Famotidine/PF 20 MG/2 ML VIAL IVPUSH (23:03)
[2023-12-02 23:06] LABS: Alanine Aminotransferase 11 U/L (0-31); Albumin Level 4.5 g/dL (3.5-5.0); Alkaline Phosphatase 82 U/L (39-117); Anion Gap 17 (12-20); Aspartate Amino Transferase 27 U/L (5-31); Bilirubin Total 0.7 mg/dL (0.0-1.0); Blood Urea Nitrogen 6 mg/dL (9-16); Carbon Dioxide 22 mmol/L (22-29); Chloride 105 mmol/L (96-108); Creatinine Clr Calc Pharmacy 100.1; Estimated Glomerular Filt Rate > 60; Ethanol 349 mg/dL; Glucose Random 91 mg/dL (60-115); Sodium 140 mmol/L (135-145); Total Protein 8.3 g/dL (6.5-8.0)
[2023-12-02] MEDS: 0.9 % Sodium Chloride 1,000 ML 999 ML IV (23:10)
--- NOTE | 2023-12-02 23:44 | PC.NURSE ---
PT arrived via ems. EMS reports that PTs mother states she had a syncopal episode . Pt reports she hit the middle of her head in the bathroom and states but its really no big deal No contusions or laceration to her head. IV access in left hand established by EMS. PT states she is worried about withdrawing and wants to get better . Pts gait unsteady as she appears to be intoxicated- slurred speech, low eye lids and smell of alcohol permeating from PT. This RN assisted PT to the bathroom. Urine sample and lab work obtained, PT attempting to get out of bed several of times and attempting to pull out her IV stating: I dont want to go the purple room Moved pt closer to nurses station- bed 22 for safety. PT tearful and sayign she needs help but then quickly asking to go home.PT reports she drank 12 oz of wine right before being picked up by EMS because she states was starting to have tremors at home. She states she began tapering alcohol consumption as she would like to stop drinking but noticed she began to feel like she was withdrawing. LIZZETH completed upon initial assessment -1 .
== END 2023-12-03 03:24 | disposition home or self-care (01) ==
PROVIDERS: Emergency Provider Emergency Medicine Emergency Medical Services; PCP Internal Medicine
DX: F10.220 Alcohol dependence with intoxication, uncomplicated (principal); Y90.8 Blood alcohol level of 240 mg/100 ml or more; Z79.899 Other long term (current) drug therapy
CPT/HCPCS: 36415; 80053; 80307; 81003; 85025; 96361; 96374; 96375; 99285; J2405

== ENCOUNTER 2024-03-25 15:05 | Outpatient (REF) | payer OTHER, SELFPAY ==
[2024-03-25 15:15] LABS: MANUAL DIFF FLAG NO
[2024-03-25 16:12] LABS: Basophils Absolute Auto 0.1 X10*3/uL (0.0-0.2); Basophils Percent Auto 0.9 % (0-2); Eosinophils Percent Auto 0.7 % (0-4); Hematocrit 39.3 % (37.0-47.0); Hemoglobin 12.9 g/dl (12.0-16.0); Imm Gran Abs Auto 0.01 X10*3/uL (0.00-0.03); Imm Gran Pct Auto 0.2 % (0.0-0.4); Lymphocytes Absolute Auto 1.9 X10*3/uL (1.2-4.9); Mean Corpuscular HGB Conc 32.8 g/dl (31.0-35.0); Mean Corpuscular Hemoglobin 26.1 pg (27.0-33.0); Mean Corpuscular Volume 79.4 fL (80.0-98.0); Mean Platelet Volume 10.7 fL (9.4-12.3); Monocytes Absolute Auto 0.4 X10*3/uL (0.1-1.2); Neutrophils Absolute Auto 3.5 x10*3/uL (2.0-8.3); Neutrophils Percent Auto 59.2 % (45-73); Platelet Count 269 X10*3/uL (160-400); Red Blood Count 4.95 X10*6/uL (4.20-5.50); Red Cell Distribution Width 15.2 % (11.0-16.0); White Blood Count 5.9 X10*3/uL (4.8-10.8)
[2024-03-25 17:00] LABS: Alanine Aminotransferase 14 U/L (0-31); Albumin Level 4.4 g/dL (3.5-5.0); Alkaline Phosphatase 73 U/L (39-117); Anion Gap 15 (12-20); Aspartate Amino Transferase 20 U/L (5-31); Bilirubin Total 0.3 mg/dL (0.0-1.0); Blood Urea Nitrogen 6 mg/dL (9-16); Calcium 9.7 mg/dL (8.4-10.2); Carbon Dioxide 26 mmol/L (22-29); Chloride 104 mmol/L (96-108); Estimated Glomerular Filt Rate > 60; Glucose Random 81 mg/dL (60-115); Iron 35 mcg/dL (30-160); Percent Iron Saturation 10 % (15-50); Sodium 141 mmol/L (135-145); Total Iron Binding Capacity 342 mcg/dL (228-428); Total Protein 7.9 g/dL (6.5-8.0); Unsaturated Iron Binding 307 ug/dL
[2024-03-25 17:25] LABS: Free T4 (Free Thyroxine) 0.93 ng/dL (0.71-1.85)
[2024-03-25 17:31] LABS: Vitamin B12 871 pg/mL (200-900)
== END 2024-03-25 15:06 | disposition home or self-care (01) ==
LOC: HO.LAB 15:05
PROVIDERS: PCP Internal Medicine; Visit Provider Internal Medicine
DX: R63.5 Abnormal weight gain (principal); R53.83 Other fatigue; G43.909 Migraine, unspecified, not intractable, without status migrainosus
CPT/HCPCS: 36415; 80053; 82607; 83540; 84439; 84443; 85025

== ENCOUNTER 2025-09-26 08:27 | Outpatient (REF) | payer OTHER, SELFPAY | END 2025-09-26 08:28 | disposition home or self-care (01) | LOC: HO.LAB 08:27 | PROVIDERS: PCP Internal Medicine; Visit Provider Physician Assistant | DX: R71.8 Other abnormality of red blood cells (principal); F41.1 Generalized anxiety disorder; F33.2 Major depressive disorder, recurrent severe without psychotic features; F10.90 Alcohol use, unspecified, uncomplicated; E66.9 Obesity, unspecified; Z79.899 Other long term (current) drug therapy; Z68.34 Body mass index [BMI] 34.0-34.9, adult | CPT/HCPCS: 96127; 99202 ==

== ENCOUNTER 2025-09-26 08:27 | Outpatient (AMB) | payer OTHER, SELFPAY ==
--- NOTE | 2025-09-26 07:31 | A.OFFPC_ITS ---
Vital Signs 09/26/25 08:34 Height 5 ft 4.17 in Weight 90.718 kg BMI 34.1 BP 120/92 H Blood Pressure Location Lt brachial Position Sitting Respiration 18 Pulse 98 Pulse Source Pulse Oximeter Temp 97.9 F Temp Source Temporal Artery Scan Pulse Oximetry (%) 99 Oxygen Delivery Method Room Air Intake Visit Reasons: AMBIKA/hilda De Ionizer Operator Required: No Accompanied by: Self / Same As Patient Allergies No Known Allergies (No Known Allergies*) Allergy (Verified 09/26/25 07:32) Medication List - Last Reconciled 09/26/25 by NANY Klein bupropion HCl XL (Wellbutrin XL) 150 mg PO QAM cholecalciferol (vitamin D3) 25 mcg PO DAILY magnesium 200 mg PO DAILY multivitamin 1 tab PO DAILY Tobacco use date assessed: 09/26/25 Dental Screening Dental Screen Date: 09/26/25 Did you have a dental visit in the last 12 months?: No Did you have a dental problem in the last 6 months where you did not have access to dental care?: No Was dental information given to patient?: Patient has dentist HPI HPI Comments History of Present Illness Details 34-year-old female with history of anxie ty, depression, alcohol use disorder presenting to the office today for management of chronic conditions and to establish care. MDD/CARLOS-reports mood is up and down. No SI/HI. She has tried therapists in the past but has not mesh well with them. She is open to seeing a therapist again. Has been using face for coping. However, despite this she is not sleeping. No panic attacks. Alcohol use disorder-in remission. Has not had any alcohol in 15 months. She is not currently using any medications to help with sobriety. She does not follow with any support groups but reports she has good supports in her family. She is feeling positive about her sobriety. Obesity-BMI 34.1. Reports she previously enjoyed working out and going to the gym, currently thinking about returning but has not yet made for the 1st step. She has also been changed her diet lower in calories. Last seen Concerns: None Health Maintenance: EDUCATION SITE MANAGER appt November ROS: General: No fevers, malaise, unintentional weight loss HEENT: No blurred vision, diplopia. No sore throat, nasal congestion, rhinorrhea, sinus pain, ear pain Cardiovascular: No chest pain, palpitations, or leg edema Respiratory: No shortness of breath, wheezing, cough GI: No abdominal pain, nausea, vomiting, diarrhea, constipation, melena, hematochezia : No dysuria, hematuria, increased urinary frequency, decreased urinary output MSK: No myalgia, back pain Neuro: No headaches, weakness, paresthesias Psych see HPI Skin: No rashes or lesions EXAM: Constitutional - Awake and Alert, No apparent distress Eyes - PERRL Cardiovascular - S1S2, RRR, No edema Respiratory - Normal lung expansion, Normal respiratory effort, No respiratory distress, CTA bilaterally Extremities - no calf tenderness bilaterally, no swelling Skin - Warm/Dry Neurological - Alert & oriented x3 Psychological - Appropriate affect [facility] Medical History (Updated 09/26/25 @ 10:43 by NANY Klein) Obesity Chronic post-traumatic stress disorder (PTSD) MDD (major depressive disorder), recurrent episode, severe Bulimia CARLOS (generalized anxiety disorder) Panic attack MDD (major depressive disorder), recurrent episode, moderate Alcohol use disorder Alcohol withdrawal delirium Alcohol abuse with withdrawal delirium Depression Anxiety Alcohol withdrawal seizure Alcoholism Family History Brother Substance abuse Social History Household Members: Family Housing: Apartment Do you presently have visiting nurse or other home services: No Alcohol intake: current Alcohol intake frequency: 3 or more drinks per day Alcohol type: beer and hard liquor Comment: patient refused alarms and camera, educated on asking for assistnace Patient Tobacco Use Status: Never used Tobacco e-Cigarette/Vaping Use: Never Used Second Hand Smoke Exposure: No Substance Use Type: Marijuana service: No Current occupational status: unemployed Sexual orientation: Straight/Heterosexual Questionnaire PHQ-9 Over the last 2 weeks, how often have you been bothered by any of the following problems? 1. Little interest or pleasure in doing things: not at all 2. Feeling down, depressed, or hopeless: several days 3. Trouble falling or staying asleep, or sleeping too much: nearly every day 4. Feeling tired or having little energy: nearly every day 5. Poor appetite or overeating: more than half the days 6. Feeling bad about yourself - or that you are a failure or have let yourself or your family down: not at all 7. Trouble concentrating on things, such as reading the newspaper or watching television: several days 8. Moving or speaking so slowly that other people could have noticed. Or the opposite - being so fidgety or restless that you have been moving around a lot more than usual: not at all 9. Thoughts that you would be better off or of hurting yourself in some way: not at all Total score: 10 Depression Screening Interpretation: Positive Depression Screening Done: Yes 52386 - PHQ-9 Billing: Yes Source: Developed by Drs. Gurmeet Zacarias, Kae Hdz, Vincent Holloway and colleagues, with an educational tracy from [employer]. Thrive Questionnaire Date Thrive assessed: 09/26/25 I am a: Patient What is your living situation today?: I have a steady place to live Within the past 12 months, did the food you bought not last and you didn't have the money to get more?: Never true Within the past 12 months, did you worry whether your food would run out before you got money to buy more?: Never true Do you have trouble paying for medicines?: No Do you have trouble getting transportation to medical appointments?: No Do you have trouble paying your heating and electricity bill?: No Do you have trouble taking care of your child, family member or friend?: No Do you have trouble with day-to-day activities such as bathing, preparing meals, shopping, managing finances, etc.?: No Are you currently unemployed and looking for a job?: Yes Are you interested in more education?: Yes Please select the resources that you would like help with: Education Currently or been in a relationship where the following occur: No concerns reported THRIVE Score: 0 AUDIT C Alcohol Use Questionnaire (AUDIT-C) 1. How often do you have a drink containing alcohol?: Never 3. How often do you have six or more drinks on one occasion?: Never Total Score: 0 CARLOS-7 AMB Questionnaire CARLOS-7 Date CARLOS - 7 assessed: 09/26/25 Feeling nervous, anxious, or on edge: 1 = Several days Not being able to stop or control worryin = Not at all Worrying too much about different things: 0 = Not at all Trouble relaxin = Not at all Being so restless that it is hard to sit still: 1 = Several days Becoming easily annoyed or irritable: 1 = Several days Feeling afraid as if something awful might happen: 0 = Not at all Total CARLOS-7 score (0-4 normal; 5-9 mild; 10-14 moderate; 15-21 severe): 3 Source: Developed by Drs. Gurmeet Zacarias, Kae Hdz, Vincent Holloway and colleagues, with an educational tracy from [employer]. CARLOS-7 Assessment Billing CARLOS-7 Assessment Tool: CARLOS-7 Assessment 90372 Physical exam (Primary Care) Vital Signs: Last Vital Signs Temp 97.9 F 09/26/25 08:34 Pulse 98 09/26/25 08:34 Resp 18 09/26/25 08:34 BP 120/92 H 09/26/25 08:34 Pulse Ox 99 09/26/25 08:34 Oxygen Delivery Method Room Air 09/26/25 08:34 BMI result Body Mass Index 34.1 Tobacco/Smoking Status: Tobacco use Status Tobacco use date assessed 09/26/25 09/26/25 07:32 Patient Tobacco Use Status Never used Tobacco 09/26/25 07:32 e-Cigarette/Vaping Use Never Used 09/26/25 07:32 PHQ-9: PHQ-9 Score PHQ-9: Total score 10 09/26/25 09:28 Depression Screening Interpretation: Positive Thrive Assessment: Date of Thrive Assessment Date Thrive assessed 09/26/25 09/26/25 09:28 Currently or been in a relationship where the following occur: No concerns reported Coding Level of Care Code New Pt Level 4 (34089) Complex EM visit Add On G2211 Diagnoses CARLOS (generalized anxiety disorder) F41.1 MDD (major depressive disorder), recurrent episode, severe F33.2 Alcohol use disorder F10.90 Obesity E66.9 Additional Codes CARLOS-7 Assessment Billing - CARLOS-7 Assessment Tool: CARLOS-7 Assessment 25430 ([id number]) PHQ-9 - 54048 - PHQ-9 Billing: Yes ([id number]) Assessment & Plan Assessment & Plan (1) CARLOS (generalized anxiety disorder): Code(s): F41.1 - Generalized anxiety disorder Category: Medical Plan: Carlos 7 score 3. Trial bupropion. Counseled on side effects. Advised the importance of sleep hygiene. Trazodone prescribed (2) MDD (major depressive disorder), recurrent episode, severe: Code(s): F33.2 - Major depressive disorder, recurrent severe without psychotic features Category: Medical Plan: PHQ-9 score 10. See above (3) Alcohol use disorder: Comment: severe; in early remission; Hx of Withdrawal seizures Category: Medical Plan: Commended on alcohol cessation thus far and encouraged ongoing cessation. Continue reaching out to healthy supports. (4) Obesity: Code(s): E66.9 - Obesity, unspecified Category: Medical Plan: Encouraged to return to the gym as she did previously enjoyed this. Recommend at least 150 minutes of moderate intensity exercise per week. Recommend healthy diet with ongoing calorie deficit with emphasis on protein, fruits, vegetables and limiting refined sugars, simple carbohydrates and highly processed foods. Plan Follow-up in 1 month, labs to be completed today. Orders: Orders Basic Metabolic Panel Today F33.2 - Major depressive disorder, recurrent severe without psychotic features, F41.1 - Generalized anxiety disorder Complete Blood Count Auto Diff Today F33.2 - Major depressive disorder, recurrent severe without psychotic features, F41.1 - Generalized anxiety disorder Lipid Panel Today F33.2 - Major depressive disorder, recurrent severe without psychotic features, F41.1 - Generalized anxiety disorder Liver Panel Today F33.2 - Major depressive disorder, recurrent severe without psychotic features, F41.1 - Generalized anxiety disorder TSH reflex Free T4 Today F33.2 - Major depressive disorder, recurrent severe without psychotic features, F41.1 - Generalized anxiety disorder Vitamin D 25-OH Total Today F33.2 - Major depressive disorder, recurrent severe without psychotic features, F41.1 - Generalized anxiety disorder Medications: New bupropion HCl XL (Wellbutrin XL) 150 mg PO QAM 90 tabs 1RF trazodone 50 mg PO BEDTIME PRN 90 tabs 1RF sleep Patient Instructions: Check LedgerX for therapist
[2025-09-26 08:34] VITALS: BP 120/92; PULSE 98; RESP 18; TEMP 36.6; O2SAT 99; BMI 34.1
--- OUTSIDE RECORDS SUMMARY | 2025-09-26 08:59 | XMS_ITS | Clinical Summary ---
Author Organization [facility] Address [address] [place] [address] Phone Care Team Providers Care Captain Of Guards Name Role Phone Leonardo Smith MD Primary Care Provider [phone] Immunizations Immunization Administration Dates Next Due DTP 01/30/1995, 2,07/26/1991,04/17,02/07/1991 H1N1 02/08/2010 HPV, Quadrivalent 01/15/2008,09/13/2007,06/28/20 07 Hep B, ped/adol 05/08/1996,11/17/1995,10/17/1995 Hib (PRP-T) 02/27/1992, 1,04/17/1991,02/17 MMR 01/30/1995,02/27/1992 Meningococcal Conj (Menactra) MCV4P 06/28/2006 OPV 01/30/1995, 2,04/17/1991,02/07 Td (adult) (MBL), 2 Lf tetan us toxoid, PF, adsorbed 04/18/2002 Tdap 06/28/2007 Varicella 06/28/2007,05/10/2005 Family History Relation Name Status Comments Brother Alive Brother: Alive and well Father Alive Father: Alive a nd well Maternal Grandfather Alive Materna l grandfather: D M Type II Maternal Grandmother Alive Materna l grandmother: D M Type II Mother Alive Mother: Alive a nd well Sister Alive Sister: Alive a nd well Social History Tobacco Use Types Packs/Day Years Used Date Smoking Tobacco: Never Comments:Never smoker Comments Unknown Sex and Gender Information Value Date Recorded Sex Assigned at Not on file Legal Sex Female 4:36 PM EDT Gender Identity Not on file Sexual Orientation Not on file Last Filed Vital Signs Vital Sign Reading Time Taken Comments Blood Pressure 100/66 05/18/2011 12:00 AM EDT Pulse 60 04/22/2010 12:00 AM EDT Temperature 36.4 C (97.6 F) 05/12/2011 12:00 AM EDT Respiratory Rate - - Oxygen Saturation - - Inhaled Oxygen Concentration - - Weight 59.5 kg (131 lb 4 oz) 05/18/2011 12:00 AM EDT Height 162.1 cm (5' 3.8 ) 05/18/2011 12:00 AM ED T Body Mass Index 22.67 05/18/2011 12:00 AM EDT Plan of Treatment Health Maintenance Due Date Last Done Comments DTaP,Tdap,and Td Vaccines (7 - Td or Tdap) 06/28/2017 06/28/2007, 04/18/2002, 01/30/1995, Additional history exists Influenza Vaccines (#1) 2025 COVID-19 Vaccine ( season) 2025 HIB Vaccines Completed 02/27/1992, 04/1991, 04/17/1991, Additional history exists IPV Vaccines Completed 01/30/1995, 05/21, 04/17/1991, Additional history exists MMR Vaccines Completed 01/30/1995, 02/27/1992 Hepatitis B Vaccines Completed 05/08/1996, 11/17/1995, 10/17/1995 Meningococcal Vaccine Aged Out 06/28/2006 No kellee [place] eligible based on patient's age to complete this topic Varicella Vaccines Completed 06/28/2007, 05/10/2005 HPV Vaccines Completed 01/15/2008, 08/21, 06/28/2007 Hepatitis A Vaccines Aged Out No long er eligible based on patient's age to complete this topic Men B Vaccine Aged Out No longer elig ible based on patient's age to complete this topic Pneumococcal Vaccine Aged Out No long er eligible based on patient's age to complete this topic Care Teams Captain Of Guards Relationship Specialty Start Date End Date Leonardo Smith MD [address] [facility] [place] [address] PCP - General 06/30/17
--- OUTSIDE RECORDS SUMMARY | 2025-09-26 08:59 | XMS_ITS | Encounter Summary ---
Author Organization [facility] Address [address] [place] [address] Phone Care Team Providers Care Prepared Foods Production Team Member Name Role Phone Leonardo Smith MD Primary Care Provider [phone] Encounter Details Date Type Department Care Team (Late st Contact Info) Description 05/13/2011 Documentation EM Family Medicine [address] [place] [address] Family Medicine, Physician [address] [place], [place] [id number] Social History Tobacco Use Types Packs/Day Years Used Date Smoking Tobacco: Never Assessed Comments Unknown Sex and Gender Information Value Date Recorded Sex Assigned at Not on file Legal Sex Female 4:36 PM EDT Gender Identity Not on file Sexual Orientation Not on file documented as of this encounter Plan of Treatment Not on file documented as of this encounter Visit Diagnoses Not on filedocumented in this encounter Care Teams Prepared Foods Production Team Member Relationship Specialty Start Date End Date Leonardo Smith MD [address] [place] [address] [place] [address] PCP - General 06/30/17 documented as of this encounter
--- OUTSIDE RECORDS SUMMARY | 2025-09-26 08:59 | XMS_ITS | Encounter Summary ---
Author Organization [facility] Address [address] [place] [address] Phone Care Team Providers Care Compounder Helper Name Role Phone Leonardo Smith MD Primary Care Provider [phone] Encounter Details Date Type Department Care Team (Late st Contact Info) Description 06/15/2011 Documentation EM Family Medicine [address] [place] [address] Family Medicine, Physician [address] [place], [place] [phone] Social History Tobacco Use Types Packs/Day Years [...] on filedocumented in this encounter Care Teams Compounder Helper Relationship Specialty Start Date End Date Leonardo Smith MD [address] [place] [address] [place] [address] PCP - General 06/30/17 documented as of this encounter
--- OUTSIDE RECORDS SUMMARY | 2025-09-26 09:00 | XMS_ITS | Encounter Summary ---
Author Organization [facility] Address [address] [place] [address] Phone Care Team Providers Care English Drawer Name Role Phone Mike Franks MD Primary Care Provider Encounter Details Date Type Department Care Team (Late st Contact Info) Description 07/27/2021 Procedure Pass [facility], Ct Scan - [facility] [address] [place] [address] Social History Tobacco Use Types Packs/Day Years Used Date Smoking Tobacco: Never Smokeless Tobacco: Never Alcohol Use Standard Drinks/Week Comments Yes 0 (1 standard drink = 0.6 oz pure alcohol) hx ETOH abuse, x1 12 pack a day for past week Comments Unknown Sex and Gender Information Value Date Recorded Sex Assigned at Female 01/23/2021 6:39 PM EST Legal Sex Female 10:00 AM EST Gender Identity Female 01/23/2021 6:39 PM EST Sexual Orientation Choose not to disclose 2020 6:39 PM EST documented as of this encounter Functional Status * Calculated C-SSRS Risk Score (Lifetime/Recent) Answer Date of Assessment Author No Risk Indicated 07/27/2021 3:31 AM Olimpia Hernandez RN * [place] Suicide Severity Rating Scale (Screener/Recent Self-Report) Question Answer Date of Assessment Author 1. Wish to be (Past 1 Month) No 021 3:31 AM Wilber Hernandez RN 2. Non-Specific Active Suici ignacia Thoughts (Past 1 Month) No 07/27/2021 3:31 AM Wilber Hernandez RN 6. Suicidal Behavior (Lifetime) No 1 3:31 AM EDT Wilber Blackmon RN documented as of this encounter Plan of Treatment Not on file documented as of this encounter Visit Diagnoses Not on filedocumented in this encounter Care Teams English Drawer Relationship Specialty Start Date End Date Mike Franks MD [address] [place] [address] [place] [address] PCP - General Internal Medicine 12/20/20 documented as of this encounter Additional Source Comments The information contained in this document represents components of the legal health record. It is not the complete legal health record.[facility]
--- OUTSIDE RECORDS SUMMARY | 2025-09-26 09:00 | XMS_ITS | Encounter Summary ---
Author Organization [facility] Address [address] [place] [address] Phone Care Team Providers Care Fisherman Helper Name Role Phone Leonardo Smith MD Primary Care Provider [phone] Encounter Details Date Type Department Care Team (Late st Contact Info) Description 08/26/2013 Documentation EM Family Medicine [address] [place] [address] Family Medicine, Physician [address] [place], [place] [phone] Social History Tobacco Use Types Packs/Day Years [...] on filedocumented in this encounter Care Teams Fisherman Helper Relationship Specialty Start Date End Date Leonardo Smith MD [address] [place] [address] [place] [address] PCP - General 06/30/17 documented as of this encounter
--- OUTSIDE RECORDS SUMMARY | 2025-09-26 09:00 | XMS_ITS | Clinical Summary ---
Author Organization [facility] Address [address] [place] [address] Care Team Providers Care Metal Patternmaker Name Role Phone Unavailable Primary Care Provider Unavailabl e Social History Tobacco Use Types Packs/Day Years Used Date Smoking Tobacco: Never Assessed Comments Unknown Sex and Gender Information Value Date Recorded Sex Assigned at Not on file Legal Sex Female 3:50 AM EST Gender Identity Not on file Sexual Orientation Not on file Plan of Treatment Health Maintenance Due Date Last Done Comments DTaP,Tdap,and Td Vaccines (1 - Tdap) 2009 Hepatitis B Vaccines (1 of 3 - 19+ 3-dose series) 2009 Cervical Cancer Screening: P ap Smear 2011 HPV Vaccines (1 - 3-dose SCD M series) 2017 HIV Screening 10/23/2022 Hepatitis C Screening 10/23/2022 Social Influencers of Health Screening 10/23/2022 Depression Screening 11/20/2024 COVID-19 Vaccine (1 - 2023-2 5 season) 2025 Influenza Vaccine (#1) 2025 RSV Immunization Adult Patie nts (1 - 1-dose 75+ series) 2065 HIB Vaccines Aged Out No longer eligi ble based on patient's age to complete this topic Hepatitis A Vaccines Aged Out No long er eligible based on patient's age to complete this topic IPV Vaccines Aged Out No longer eligi ble based on patient's age to complete this topic MMR Vaccines Aged Out No longer eligi ble based on patient's age to complete this topic Meningococcal ACWY Vaccine Aged Out N o longer eligible based on patient's age to complete this topic Meningococcal B Vaccine Aged Out No l onger eligible based on patient's age to complete this topic Pneumococcal Vaccine: Pediat rics (0 to 5 Years) and At-Risk Patients (6 to 49 Years) Aged Out No longer eligible b ased on patient's age to complete this topic RSV Immunization Patients Un yajaira 20 months Aged Out No longer eligible b ased on patient's age to complete this topic Varicella Vaccines Aged Out No longer eligible based on patient's age to complete this topic Advance Directives Documents on File Type Date Recorded Patient Wheel Cutter Expl anation Health Care Decision (hx) 05/18/2022 AD SWANSON DIRECTIVE Health Care Decision (hx) 05/18/2022 AD SWANSON DIRECTIVE Health Care Decision (hx) 05/18/2022 AD SWANSON DIRECTIVE Health Care Decision (hx) 05/18/2022 AD SWANSON DIRECTIVE Health Care Decision (hx) 05/18/2022 AD SWANSON DIRECTIVE Health Care Decision (hx) 05/18/2022 AD SWANSON DIRECTIVE Health Care Decision (hx) 05/18/2022 AD SWANSON DIRECTIVE Health Care Decision (hx) 05/18/2022 AD SWANSON DIRECTIVE Health Care Decision (hx) 05/18/2022 AD SWANSON DIRECTIVE Health Care Decision (hx) 05/18/2022 AD SWANSON DIRECTIVE Health Care Decision (hx) 05/18/2022 AD SWANSON DIRECTIVE Health Care Decision (hx) 05/18/2022 AD SWANSON DIRECTIVE Health Care Decision (hx) 05/18/2022 AD SWANSON DIRECTIVE Health Care Decision (hx) 05/18/2022 AD SWANSON DIRECTIVE Health Care Decision (hx) 05/18/2022 AD SWANSON DIRECTIVE Health Care Decision (hx) 05/18/2022 AD SWANSON DIRECTIVE Health Care Decision (hx) 05/18/2022 AD SWANSON DIRECTIVE Health Care Decision (hx) 05/18/2022 AD SWANSON DIRECTIVE Health Care Decision (hx) 05/18/2022 AD SWANSON DIRECTIVE Health Care Decision (hx) 05/18/2022 AD SWANSON DIRECTIVE
--- OUTSIDE RECORDS SUMMARY | 2025-09-26 09:00 | XMS_ITS | Clinical Summary ---
Author Organization [facility] Address [address] [facility] [address] [place] [address] Phone Care Team Providers Care Digital Content Manager Name Role Phone Mike Franks MD Primary Care Provider Allergies No known active allergies Medications chlordiazePOXID E (LIBRIUM) 25 MG capsule Take 1 capsule (25 mg total) by mouth 4 (four) times a day as needed for anxiety. 15 capsule 12/20/2020 Active Active Problems No known active problems Social History Tobacco Use Types Packs/Day Years Used Date Smoking Tobacco: Never Smokeless Tobacco: Never Alcohol Use Standard Drinks/Week Comments Yes 0 (1 standard drink = 0.6 oz pure alcohol) hx ETOH abuse, x1 12 pack a day for past week Education Answer Date Recorded Are you interested in more education? Not on vinay e 03/17/2023 Are you concerned about learning? Not on file 03/17/2023 No 03/17/2023 No 03/17/2023 Digital Access Answer Date Recorded No 04/18/2023 No 04/18/2023 Reliable internet access at home? Not on file 04/18/2023 Device with a working camera? Not on file Comments Unknown Sex and Gender Information Value Date Recorded Sex Assigned at Female 01/23/2021 6:39 PM EST Legal Sex Female 10:00 AM EST Gender Identity Female 01/23/2021 6:39 PM EST Sexual Orientation Choose not to disclose 2020 6:39 PM EST Last Filed Vital Signs Vital Sign Reading Time Taken Comments Blood Pressure 159/114 07/27/2021 3:26 AM EDT Pulse 78 07/27/2021 3:26 AM EDT Temperature 37.1 C (98.8 F) 07/27/2021 3:26 AM EDT Respiratory Rate 18 07/27/2021 3:26 AM EDT Oxygen Saturation 99% 07/27/2021 3:26 AM EDT Inhaled Oxygen Concentration - - Weight 70.3 kg (155 lb) 07/27/2021 3:26 AM EDT Height 160 cm (5' 3 ) 01/23/2021 6:37 PM EST Body Mass Index 27.46 01/23/2021 6:37 PM EST Plan of Treatment Not on file Medical Devices Not on file Insurance [employer] O [employer] HATFIELDSaferTaxi ESSENTIAL [employer] HATFIELDSaferTaxi ESSENTIAL [employer] MCO HATFIELDSaferTaxi ESSENTIAL [employer] MCO Beaming ESSENTIAL [facility] [address] [place] [address] [address] [address] [place] [address] [address] [place], [place] [address] Care Teams Digital Content Manager Relationship Specialty Start Date End Date Mike Franks MD [address] [place] [address] [place] [address] PCP - General Internal Medicine 12/20/20 Additional Source Comments The information contained in this document represents components of the legal health record. It is not the complete legal health record.[facility]
--- OUTSIDE RECORDS SUMMARY | 2025-09-26 09:00 | XMS_ITS | Encounter Summary ---
Author Organization [facility] Address [address] [place] [address] Phone Care Team Providers Care Maternal Fetal Physician Name Role Phone Leonardo Smith MD Primary Care Provider [phone] Encounter Details Date Type Department Care Team (Late st Contact Info) Description 07/06/2017 Conversion Encounter [facility] [place] [address] [place] [address] Social History Tobacco Use Types Packs/Day Years [...] on filedocumented in this encounter Care Teams Maternal Fetal Physician Relationship Specialty Start Date End Date Leonardo Smith MD [address] [place] [address] PCP - General 06/30/17 documented as of this encounter
== END 2025-09-26 08:53 | disposition home or self-care (01) ==
PROVIDERS: PCP Physician Assistant; Visit Provider Physician Assistant
DX: F41.1 Generalized anxiety disorder (principal); F33.2 Major depressive disorder, recurrent severe without psychotic features; F10.90 Alcohol use, unspecified, uncomplicated; E66.9 Obesity, unspecified

== ENCOUNTER 2025-09-26 08:56 | Outpatient (REF) | payer OTHER, SELFPAY ==
[2025-09-26 10:33] LABS: MANUAL DIFF FLAG NO
[2025-09-26 10:49] LABS: Hematocrit 41.9 % (37.0-47.0); Hemoglobin 13.7 g/dl (12.0-16.0); Imm Gran Abs Auto 0.01 X10*3/uL (0.00-0.03); Imm Gran Pct Auto 0.1 % (0.0-0.4); Lymphocytes Absolute Auto 2.4 X10*3/uL (1.2-4.9); Mean Corpuscular HGB Conc 32.7 g/dl (31.0-35.0); Mean Corpuscular Hemoglobin 24.9 pg (27.0-33.0); Mean Corpuscular Volume 76.0 fL (80.0-98.0); NRBC Abs Auto 0.000 X10*3/uL (0.0-0.012); NRBC Pct Auto 0.0 /100WBC (0.0-0.2); Platelet Count 213 X10*3/uL (160-400); Red Blood Count 5.51 X10*6/uL (4.20-5.50); White Blood Count 8.2 X10*3/uL (4.8-10.8)
[2025-09-26 11:03] LABS: Alanine Aminotransferase 16 U/L (0-31); Albumin Level 5.0 g/dL (3.5-5.0); Alkaline Phosphatase 81 U/L (39-117); Anion Gap 13 (12-20); Aspartate Amino Transferase 22 U/L (5-31); Blood Urea Nitrogen 11 mg/dL (9-16); Calcium 9.6 mg/dL (8.4-10.2); Carbon Dioxide 24 mmol/L (22-29); Chloride 103 mmol/L (96-108); Cholesterol 163 mg/dL (<200); Estimated Glomerular Filt Rate > 60; HDL Cholesterol 43 mg/dL (>40); Potassium 3.7 mmol/L (3.3-5.1); Sodium 136 mmol/L (135-145); Total Protein 8.3 g/dL (6.5-8.0); Triglycerides 99 mg/dL (<150)
[2025-09-26 12:59] LABS: Iron 56 mcg/dL (30-160); Percent Iron Saturation 17 % (15-50); Total Iron Binding Capacity 331 mcg/dL (228-428); Unsaturated Iron Binding 275 ug/dL
[2025-09-29 14:38] LABS: Hematocrit 43.9 % (35.0-45.0); Hemoglobin 14.1 g/dL (11.7-15.5); MCH 25.4 pg (27.0-33.0); MCV 79.1 fL (80.0-100.0); RBC 5.55 Million/uL (3.80-5.10); RDW 15.2 % (11.0-15.0)
== END 2025-09-26 08:57 | disposition home or self-care (01) ==
LOC: HO.10HDL 08:56
PROVIDERS: Visit Provider Physician Assistant
DX: F33.2 Major depressive disorder, recurrent severe without psychotic features (principal); F41.1 Generalized anxiety disorder
CPT/HCPCS: 36415; 80048; 80061; 80076; 82306; 83020; 83540; 84443; 85014; 85018; 85025; 85041

== ENCOUNTER 2025-10-27 15:28 | Outpatient (AMB) | payer OTHER, SELFPAY ==
--- NOTE | 2025-10-27 16:01 | MHC.PC.OV ---
Vital Signs 10/27/25 16:03 10/27/25 16:25 Height 5 ft 4 in Weight 86.636 kg BMI 32.8 BP 122/90 H 116/86 Respiration 14 Pulse 78 Pulse Source Pulse Oximeter Temp 97.8 F Temp Source Temporal Artery Scan Pulse Oximetry (%) 99 Oxygen Delivery Method Room Air Intake Visit Reasons: 1 mo med follow up Hand Rug Cleaner Required: No Accompanied by: Self / Same As Patient Allergies No Known Allergies (No Known Allergies*) Allergy (Verified 10/27/25 16:02) Medication List - Last Reconciled 10/27/25 by NANY Klein bupropion HCl XL (Wellbutrin XL) 150 mg PO QAM cholecalciferol (vitamin D3) 25 mcg PO DAILY lamotrigine mg PO multivitamin 1 tab PO DAILY trazodone 50 mg PO BEDTIME PRN Tobacco use date assessed: 09/26/25 Dental Screening Dental Screen Date: 09/26/25 HPI HPI Comments History of Present Illness Details 34-year-old female with history of anxiety, depression, alcohol use disorder presenting to the office today for follow-up MDD/SANDY-reports mood is up and down. No SI/HI. She has found a psychiatrist, Laure ross over telehealth. Does not currently have a counselor. She was started on bupropion 150 mg daily 1 month ago at last visit and her psychiatrist recently started her on lamotrigine. Reports mood is still not stable though denies any SI/HI. Tolerating medications well. She has been using trazodone 50-100 mg nightly with good effect. Does not currently have coping mechanisms she is using. Alcohol use disorder-in remission. Has not had any alcohol in 16 months. She is not currently using any medications to help with sobriety. She does not follow with any support groups but reports she has good supports in her family. She is feeling positive about her sobriety. Obesity-BMI 32.8- Has not yet returned to the gym which she did previously enjoy. Reports diet has improved. Consuming less carbohydrates which she previously overconsumed. Concerns: Mobile lesion L jawline. Increasing and decreasing in size. No overlying erythema or drainage. Has been present for about 1 year. Does report history of irregular periods, excess hair growth and was told at 1 point that she does have PCOS. She denies any other facial lesions/acne Lesion L forearm- has been present for several years and has grown in size Health Maintenance: EYEGLASS LENS CUTTER appt November ROS: see hpi EXAM: Constitutional - Awake and Alert, No apparent distress Eyes - PERRL Cardiovascular - S1S2, RRR, No edema Respiratory - Normal lung expansion, Normal respiratory effort, No respiratory distress, CTA bilaterally Extremities - no calf tenderness bilaterally, no swelling Skin - Warm/Dry. Pea sized mobile lesion left jaw. De La Cruz nevus L forearm, no irregular borders Neurological - Alert & oriented x3 Psychological - Appropriate affect [facility] History PCOS (polycystic ovarian syndrome) Obesity Chronic post-traumatic stress disorder (PTSD) MDD (major depressive disorder), recurrent episode, severe Bulimia SANDY (generalized anxiety disorder) Panic attack MDD (major depressive disorder), recurrent episode, moderate Alcohol use disorder Alcohol withdrawal delirium Alcohol abuse with withdrawal delirium Depression Anxiety Alcohol withdrawal seizure Alcoholism Family History Brother Substance abuse Social History Household Members: Family Housing: Apartment Do you presently have visiting nurse or other home services: No Alcohol intake: current Alcohol intake frequency: 3 or more drinks per day Alcohol type: beer and hard liquor Comment: patient refused alarms and camera, educated on asking for assistnace Patient Tobacco Use Status: Never used Tobacco e-Cigarette/Vaping Use: Never Used Second Hand Smoke Exposure: No Substance Use Type: Marijuana service: No Current occupational status: unemployed Sexual orientation: Straight/Heterosexual Questionnaire Thrive Questionnaire Date Thrive assessed: 09/26/25 SANDY-7 AMB Questionnaire SANDY-7 Date SANDY - 7 assessed: 09/26/25 Source: Developed by Drs. Gurmeet Zacarias, Kae Hdz, Vincent Holloway and colleagues, with an educational tracy from [employer]. Physical exam (Primary Care) Vital Signs: Last Vital Signs Temp 97.8 F 10/27/25 16:03 Pulse 78 10/27/25 16:03 Resp 14 10/27/25 16:03 BP 116/86 10/27/25 16:25 Pulse Ox 99 10/27/25 16:03 Oxygen Delivery Method Room Air 10/27/25 16:03 BMI result Body Mass Index 32.8 Tobacco/Smoking Status: Tobacco use Status Tobacco use date assessed 09/26/25 10/27/25 16:04 Patient Tobacco Use Status Never used Tobacco 10/27/25 16:04 e-Cigarette/Vaping Use Never Used 10/27/25 16:04 Thrive Assessment: Date of Thrive Assessment Date Thrive assessed 09/26/25 10/27/25 16:04 Coding Level of Care Code Tele Est Pt Level 4 (50416) Complex visit Add On G2211 Diagnoses SANDY (generalized anxiety disorder) F41.1 MDD (major depressive disorder), recurrent episode, severe F33.2 Alcohol use disorder F10.90 Obesity E66.9 Nevus of left forearm D22.62 Cystic acne L70.0 PCOS (polycystic ovarian syndrome) E28.2 Assessment & Plan Assessment & Plan (1) SANDY (generalized anxiety disorder): Code(s): F41.1 - Generalized anxiety disorder Category: Medical Plan: Mood remains labile. Continue with currents medications and follow-up with psychiatry as scheduled and advised to seek out counselor. Advised the importance of sleep hygiene. Trazodone prescribed (2) MDD (major depressive disorder), recurrent episode, severe: Code(s): F33.2 - Major depressive disorder, recurrent severe without psychotic features Category: Medical Plan: Mood remains labile. Continue with bupropion 150 mg daily as well as lamotrigine as prescribed by psychiatrist. Continue following with Psychiatry and recommend seeking out a counselor. No alarm symptoms at this time (3) Alcohol use disorder: Comment: severe; in early remission; Hx of Withdrawal seizures Category: Medical Plan: Commended on alcohol cessation thus far and encouraged ongoing cessation. Continue reaching out to healthy supports. (4) Obesity: Code(s): E66.9 - Obesity, unspecified Category: Medical Plan: Encouraged to return to the gym as she did previously enjoyed this. Recommend at least 150 minutes of moderate intensity exercise per week. Recommend healthy diet with ongoing calorie deficit with emphasis on protein, fruits, vegetables and limiting refined sugars, simple carbohydrates and highly processed foods. (5) Nevus of left forearm: Code(s): D22.62 - Melanocytic nevi of left upper limb, including shoulder Category: Medical Plan: Refer to dermatology (6) Cystic acne: Code(s): L70.0 - Acne vulgaris Category: Medical Plan: Under the skin increasing and decreasing in size. Suspect PCOS.Testosterone levels ordered. Referred to dermatology (7) PCOS (polycystic ovarian syndrome): Code(s): E28.2 - Polycystic ovarian syndrome Category: Medical Plan: See above. Previously diagnosed. Check testosterone level Plan Follow-up in 1 month, labs to be completed today. Orders: Orders Testosterone, Free/Total 10/27/25 L98.9 - Disorder of the skin and subcutaneous tissue, unspecified
[2025-10-27 16:03] VITALS: BP 122/90; PULSE 78; RESP 14; TEMP 36.6; O2SAT 99; BMI 32.8
[2025-10-27 16:25] VITALS: BP 116/86
--- OUTSIDE RECORDS SUMMARY | 2025-10-28 01:03 | XMS_ITS | Encounter Summary ---
Author Organization [facility] Address [address] [place] [address] Phone Care Team Providers Care Excelsior Cutter Name Role Phone Leonardo Smith MD Primary Care Provider Encounter Details Date Type Department Care Team (Late st Contact Info) Description 08/26/2013 Documentation EM Family Medicine [address] [place] [address] Family Medicine, Physician [address] [place], [place] [id number] Social History Tobacco Use Types Packs/Day Years [...] on filedocumented in this encounter Care Teams Excelsior Cutter Relationship Specialty Start Date End Date Leonardo Smith MD [address] [place] [address] [place] [address] PCP - General 06/30/17 documented as of this encounter
--- OUTSIDE RECORDS SUMMARY | 2025-10-28 01:03 | XMS_ITS | Clinical Summary ---
Author Organization [facility] Address [address] [facility] [address] [place] [address] Phone Care Team Providers Care Erp Analyst Name Role Phone Mike Franks MD Primary [...] file Medical Devices Not on file Insurance [employer] O Xercise[employer]less MCO [place] ESSENTIAL [place] AcquisitionsHEALTH [employer]CO [place] ESSENTIAL [place] AcquisitionsHEALTH MCO [place] ESSENTIAL [place] AcquisitionsHEALTH MCO Mojiva ESSENTIAL ND AcquisitionsHEALTH [address] [place] [address]Nutorious Nut [facility] [address] [place] [address]Nutorious Nut ConfectionsCL[facility] [address] [place], [place] [address]Nutorious [facility]fectionsCL[facility] M[facility] Care Teams Erp Analyst Relationship Specialty Start Date End Date Mike Franks MD [address] [place] [address] [place] [address] PCP - General Internal Medicine 12/20/20 Additional Source Comments The information contained in this document represents components of the legal health record. It is not the complete legal health record.[facility]
--- OUTSIDE RECORDS SUMMARY | 2025-10-28 01:03 | XMS_ITS | Encounter Summary ---
Author Organization [facility] Address [address] [place] [address] Phone Care Team Providers Care Health Club Manager Name Role Phone Leonardo Smith MD Primary Care Provider [phone] Encounter Details Date Type Department Care Team (Late st Contact Info) Description 06/15/2011 Documentation EM Family Medicine [address] [place] [address] Family Medicine, Physician [address] [place], [place] [phone] Social History Tobacco Use Types Packs/Day Years [...] on filedocumented in this encounter Care Teams Health Club Manager Relationship Specialty Start Date End Date Leonardo Smith MD [address] [place] [address] [place] [address] PCP - General 06/30/17 documented as of this encounter
--- OUTSIDE RECORDS SUMMARY | 2025-10-28 01:03 | XMS_ITS | Clinical Summary ---
Author Organization [facility] Address [address] [place] [address] Phone Care Team Providers Care Tool Worker Name Role Phone Leonardo Smith MD Primary Care Provider [phone] Immunizations Immunization Administration Dates Next Due DTP [...] age to complete this topic Care Teams Tool Worker Relationship Specialty Start Date End Date Leonardo Smith MD [address] [facility] [place] [address] PCP - General 06/30/17
--- OUTSIDE RECORDS SUMMARY | 2025-10-28 01:03 | XMS_ITS | Encounter Summary ---
Author Organization [facility] Address [address] [facility] [address] [place] [address] Phone Care Team Providers Care Delivery Coordinator Name Role Phone Mike Franks MD Primary Care Provider Encounter Details Date Type Department Care Team (Late st Contact Info) Description 07/27/2021 Procedure Pass [facility], Ct Scan - [facility] [address] [place] [address] Social History Tobacco Use Types Packs/Day Years [...] 07/27/2021 3:31 AM Olimpia Hernandez RN * [place] Suicide Severity Rating Scale (Screener/Recent Self-Report) Question Answer Date of Assessment Author 1. Wish to be (Past 1 Month) No 021 3:31 AM Wilber Hernandez, RN 2. Non-Specific Active Suici ignacia Thoughts (Past 1 Month) No 07/27/2021 3:31 AM Wilber Hernandez RN 6. Suicidal Behavior (Lifetime) No 1 3:31 AM EDT Wilber Blackmon RN documented as of this encounter Plan of Treatment Not on file documented as of this encounter Visit Diagnoses Not on filedocumented in this encounter Care Teams Delivery Coordinator Relationship Specialty Start Date End Date Mike Franks MD [address] [place] [address] [place] [address] PCP - General Internal Medicine 12/20/20 documented as of this encounter Additional Source Comments The information contained in this document represents components of the legal health record. It is not the complete legal health record.[facility]
--- OUTSIDE RECORDS SUMMARY | 2025-10-28 01:03 | XMS_ITS | Encounter Summary ---
Author Organization [facility] Address [address] [place] [address] Phone Care Team Providers Care Circus Performer Name Role Phone Leonardo Smith MD Primary Care Provider [phone] Encounter Details Date Type Department Care Team (Late st Contact Info) Description 07/06/2017 Conversion Encounter [facility] [place] [address] [place] [address] Social History Tobacco Use Types Packs/Day Years [...] on filedocumented in this encounter Care Teams Circus Performer Relationship Specialty Start Date End Date Leonardo Smith MD [address] [place] [address] PCP - General 06/30/17 documented as of this encounter
--- OUTSIDE RECORDS SUMMARY | 2025-10-28 01:03 | XMS_ITS | Encounter Summary ---
Author Organization [facility] Address [address] [place] [address] Phone Care Team Providers Care Registered Private Duty Nurse Name Role Phone Leonardo Smith MD Primary Care Provider [phone] Encounter Details Date Type Department Care Team (Late st Contact Info) Description 05/13/2011 Documentation EM Family Medicine [address] [place] [address] Family Medicine, Physician [address] [place], [place] [phone] Social History Tobacco Use Types Packs/Day Years [...] on filedocumented in this encounter Care Teams Registered Private Duty Nurse Relationship Specialty Start Date End Date Leonardo Smith MD [address] [place] [address] [place] [address] PCP - General 06/30/17 documented as of this encounter
--- OUTSIDE RECORDS SUMMARY | 2025-10-28 01:03 | XMS_ITS | Clinical Summary ---
Author Organization [facility] Address [address] [place] [address] Care Team Providers Care Senior Solutions Consultant Name Role Phone Unavailable Primary Care Provider [...] Depression Screening 11/20/2024 COVID-19 Vaccine (1 - 2024-2 6 season) 2025 Influenza Vaccine (#1) 2025 RSV [...] Documents on File Type Date Recorded Patient Decorator Lighting Fixtures Expl anation Health Care Decision (hx) 05/18/2022 [...]
== END 2025-10-27 16:32 | disposition home or self-care (01) ==
LOC: HO.HMCHD 15:29
PROVIDERS: PCP Physician Assistant; Visit Provider Physician Assistant
DX: F41.1 Generalized anxiety disorder (principal); F33.2 Major depressive disorder, recurrent severe without psychotic features; F10.90 Alcohol use, unspecified, uncomplicated; E66.9 Obesity, unspecified; D22.62 Melanocytic nevi of left upper limb, including shoulder; L70.0 Acne vulgaris; E28.2 Polycystic ovarian syndrome

== ENCOUNTER 2025-11-04 12:39 | Outpatient (REF) | payer OTHER, SELFPAY ==
[2025-11-04 13:53] LABS: MANUAL DIFF FLAG NO
[2025-11-04 14:31] LABS: Hematocrit 40.0 % (37.0-47.0); Hemoglobin 13.0 g/dl (12.0-16.0); Imm Gran Abs Auto 0.02 X10*3/uL (0.00-0.03); Imm Gran Pct Auto 0.3 % (0.0-0.4); Lymphocytes Absolute Auto 1.3 X10*3/uL (1.2-4.9); Mean Corpuscular HGB Conc 32.5 g/dl (31.0-35.0); Mean Corpuscular Hemoglobin 25.2 pg (27.0-33.0); Mean Corpuscular Volume 77.7 fL (80.0-98.0); NRBC Abs Auto 0.000 X10*3/uL (0.0-0.012); NRBC Pct Auto 0.0 /100WBC (0.0-0.2); Platelet Count 215 X10*3/uL (160-400); Red Blood Count 5.15 X10*6/uL (4.20-5.50); White Blood Count 6.6 X10*3/uL (4.8-10.8)
[2025-11-04 15:20] LABS: Iron 40 mcg/dL (30-160); Percent Iron Saturation 14 % (15-50); Total Iron Binding Capacity 280 mcg/dL (228-428); Unsaturated Iron Binding 240 ug/dL
--- OUTSIDE RECORDS SUMMARY | 2025-11-04 16:24 | XMS_ITS | Encounter Summary ---
Author Organization [facility] Address [address] [place] [address] Phone Care Team Providers Care Side Puller Name Role Phone Leonardo Smith MD Primary Care Provider [phone] Encounter Details Date Type Department Care Team (Late st Contact Info) Description 06/15/2011 Documentation EM Family Medicine [address] [place] [address] Family Medicine, Physician [address] [place], [place] [phone] Social History Tobacco Use Types Packs/Day Years [...] on filedocumented in this encounter Care Teams Side Puller Relationship Specialty Start Date End Date Leonardo Smith MD [address] [place] [address] [place] [address] PCP - General 06/30/17 documented as of this encounter
--- OUTSIDE RECORDS SUMMARY | 2025-11-04 16:24 | XMS_ITS | Clinical Summary ---
Author Organization [facility] Address [address] [place] [address] Phone Care Team Providers Care Analytical Research Chemist Name Role Phone Leonardo Smith MD Primary Care Provider [phone] Immunizations Immunization Administration Dates Next Due DTP [...] age to complete this topic Care Teams Analytical Research Chemist Relationship Specialty Start Date End Date Leonardo Smith MD [address] [facility] [place] [address] PCP - General 06/30/17
--- OUTSIDE RECORDS SUMMARY | 2025-11-04 16:24 | XMS_ITS | Encounter Summary ---
Author Organization [facility] Address [address] [place] [address] Phone Care Team Providers Care Dog Breeder Name Role Phone Leonardo Smith MD Primary Care Provider [phone] Encounter Details Date Type Department Care Team (Late st Contact Info) Description 05/13/2011 Documentation EM Family Medicine [address] [place] [address] Family Medicine, Physician [address] [place], [place] [phone] Social History Tobacco Use Types Packs/Day Years [...] on filedocumented in this encounter Care Teams Dog Breeder Relationship Specialty Start Date End Date Leonardo Smith MD [address] [place] [address] [place] [address] PCP - General 06/30/17 documented as of this encounter
--- OUTSIDE RECORDS SUMMARY | 2025-11-04 16:25 | XMS_ITS | Encounter Summary ---
Author Organization [facility] Address [address] [facility] [address] [place] [address] Phone Care Team Providers Care Automobile Drivers Name Role Phone Mike Franks MD Primary Care Provider Encounter Details Date Type Department Care Team (Late st Contact Info) Description 07/27/2021 Procedure Pass [facility], Ct Scan - [facility] [address] [place] [address] Social History Tobacco Use Types Packs/Day Years [...] 07/27/2021 3:31 AM Olimpia Hernandez RN * [place] Suicide Severity Rating Scale (Screener/Recent Self-Report) Question [...] on filedocumented in this encounter Care Teams Automobile Drivers Relationship Specialty Start Date End Date Mike Franks MD [address] [place] [address] [place] [address] PCP - General Internal Medicine 12/20/20 documented as of this encounter Additional Source Comments The information contained in this document represents components of the legal health record. It is not the complete legal health record.[facility]
--- OUTSIDE RECORDS SUMMARY | 2025-11-04 16:25 | XMS_ITS | Encounter Summary ---
Author Organization [facility] Address [address] [place] [address] Phone Care Team Providers Care Developing Machine Tender Name Role Phone Leonardo Smith MD Primary Care Provider [phone] Encounter Details Date Type Department Care Team (Late st Contact Info) Description 08/26/2013 Documentation EM Family Medicine [address] [place] [address] Family Medicine, Physician [address] [place], [place] [phone] Social History Tobacco Use Types Packs/Day Years [...] on filedocumented in this encounter Care Teams Developing Machine Tender Relationship Specialty Start Date End Date Leonardo Smith MD [address] [place] [address] [place] [address] PCP - General 06/30/17 documented as of this encounter
--- OUTSIDE RECORDS SUMMARY | 2025-11-04 16:25 | XMS_ITS | Clinical Summary ---
Author Organization [facility] ity Address [address] [place] [address] Care Team Providers Care Ticket Broker Name Role Phone Unavailable Primary Care Provider [...] Documents on File Type Date Recorded Patient Atomic Physics Teacher Expl anation Health Care Decision (hx) 05/18/2022 [...]
--- OUTSIDE RECORDS SUMMARY | 2025-11-04 16:25 | XMS_ITS | Clinical Summary ---
Author Organization [facility] Address [address] [facility] [address] [place] [address] Phone Care Team Providers Care Performance Improvement Specialist Name Role Phone Mike Franks MD [...] file Medical Devices Not on file Insurance Eqvilibria O Eqvilibria [employer]CO TEMPLE[employer]SMSA CRANE ACQUISITION ESSENTIAL G2 [employer]PLE[employer]A CRANE ACQUISITION ESSENTIAL G2 [employer] CRANE ACQUISITION ESSENTIAL G2 [employer] MCO sMedio ESSENTIAL G2 [employer] [address] [place], [place] [address] [address] [address] [place], [place] [address] [address] [place], [place] [address] [address] Care Teams Performance Improvement Specialist Relationship Specialty Start Date End Date Mike Franks MD [address] [place] [address] [place] [address] PCP - General Internal Medicine 12/20/20 Additional Source Comments The information contained in this document represents components of the legal health record. It is not the complete legal health record.[facility]
--- OUTSIDE RECORDS SUMMARY | 2025-11-04 16:25 | XMS_ITS | Encounter Summary ---
Author Organization [facility] Address [address] [place] [address] Phone Care Team Providers Care Social Work Msw Name Role Phone Leonardo Smith MD Primary Care Provider [phone] Encounter Details Date Type Department Care Team (Late st Contact Info) Description 07/06/2017 Conversion Encounter [facility] [place] [address] [place] [address] Social History Tobacco Use Types Packs/Day Years [...] on filedocumented in this encounter Care Teams Social Work Msw Relationship Specialty Start Date End Date Leonardo Smith MD [address] [place] [address] PCP - General 06/30/17 documented as of this encounter
[2025-11-06 08:04] LABS: Hematocrit 40.3 % (35.9-46.0); Hemoglobin 13.4 g/dL (11.7-15.5); MCH 26.0 pg (27.0-33.0); MCV 78.1 fL (81.4-101.7); RBC 5.16 Million/uL (3.80-5.10); RDW 14.5 % (11.0-15.0)
== END 2025-11-04 12:40 | disposition home or self-care (01) ==
LOC: HO.10HDL 12:39
PROVIDERS: Visit Provider Physician Assistant
DX: L98.9 Disorder of the skin and subcutaneous tissue, unspecified (principal); R71.8 Other abnormality of red blood cells
CPT/HCPCS: 36415; 83020; 83540; 84402; 84403; 85014; 85018; 85025; 85041